=== PATIENT | female | born 1940 | race Caucasian/White ===

== ENCOUNTER 2020-06-28 11:24 | Outpatient (REF) | payer MEDICARE, SELFPAY ==
--- NOTE | 2020-06-28 11:29 | CT_ITS ---
EXAMINATION: CT CHEST WITHOUT CONTRAST CLINICAL INFORMATION: Pulmonary nodule COMPARISON: 06/11/2019 TECHNIQUE: Multidetector volumetric CT imaging of the chest was done. Axial MIP volume rendering provided. Sagittal and coronal reformatted images were obtained. This CT examination was performed using dose optimization techniques as appropriate, variously including the following: *Automated exposure control *Adjustment of mA and/or kV according to patient size (this includes techniques or standardized protocols for targeted exams where dose is matched to indication/reason for exam; i.e. extremities or head) *Use of iterative reconstruction technique DLP: 192 mGy-cm FINDINGS: LUNGS: There are moderate changes of centrilobular emphysema present bilaterally. There is some bronchial wall thickening with mild cylindrical bronchiectasis within both lower lobes. There are numerous sub-4 mm densities present. There are scattered regions of disease with the appearance of tree-in-bud configuration from endobronchial disease/mucous plugging within the right upper lobe, right middle lobe, lingula, and bilateral lower lobes. There are scattered calcified granulomas present. There is a 4 mm noncalcified nodule seen within the right middle lobe on image 284 of 541. There is a subpleural noncalcified density seen within the left lower lobe on image 396 of 541 which may represent pleural scarring. There is a 5 mm noncalcified subpleural nodule within the left lower lobe on image 358 of 541. MEDIASTINUM: Visualized thyroid gland appears unremarkable. Heart normal size. Coronary artery and aortic valve calcifications present. No thoracic aortic aneurysm. There is prominence of the pulmonary artery consistent with some degree of pulmonary hypertension. There is moderate thoracic calcified plaque present most prominent at the origin of the left subclavian artery. No mediastinal or hilar lymphadenopathy appreciated. No pericardial effusion. PLEURA: There is no pleural effusion. No pleural mass or thickening. AXILLA: No lymphadenopathy. UPPER ABDOMEN: Small hiatal hernia. OSSEOUS STRUCTURES: No suspicious destructive bony lesions. CT/CT chest wo con IMPRESSION: Essentially stable appearance of the chest compared to previous study of 06/11/2019. Old granulomatous disease. Centrilobular emphysema. Bibasilar bronchiectasis. Pleural and parenchymal densities as described above which have not changed.
== END 2020-06-28 11:25 | disposition home or self-care (01) ==
LOC: HO.CT 11:24
PROVIDERS: PCP Internal Medicine; Visit Provider Hospitalist
DX: R91.1 Solitary pulmonary nodule (principal)
CPT/HCPCS: 71250

== ENCOUNTER → 2020-07-03 10:42 | Outpatient (BNVA) | payer MEDICARE, SELFPAY | PROVIDERS: PCP Internal Medicine; Visit Provider Hospitalist | DX: J44.9 Chronic obstructive pulmonary disease, unspecified (principal) | CPT/HCPCS: 99212 ==

== ENCOUNTER → 2020-12-27 10:40 | Outpatient (BNVA) | payer MEDICARE, SELFPAY | PROVIDERS: Visit Provider Hospitalist | DX: R91.8 Other nonspecific abnormal finding of lung field (principal); J41.1 Mucopurulent chronic bronchitis; J47.9 Bronchiectasis, uncomplicated | CPT/HCPCS: 99212 ==

== ENCOUNTER 2021-05-21 13:18 | Outpatient (REF) | payer MEDICARE, SELFPAY ==
--- NOTE | ~2021-05-21 | CT_ITS ---
EXAMINATION: CT CHEST WITHOUT CONTRAST CLINICAL INFORMATION: Bronchiectasis. Difficulty breathing, dyspnea on exertion and cough. COMPARISON: Previous chest CT scans most recent June 2020 TECHNIQUE: Multidetector volumetric CT imaging of the chest was done. Axial MIP volume rendering provided. Sagittal and coronal reformatted images were obtained. This CT examination was performed using dose optimization techniques as appropriate, variously including the following: *Automated exposure control *Adjustment of mA and/or kV according to patient size (this includes techniques or standardized protocols for targeted exams where dose is matched to indication/reason for exam; i.e. extremities or head) *Use of iterative reconstruction technique DLP: 161 mGy-cm FINDINGS: LUNGS: There is evidence of mild emphysema. There is bilateral lower lobe bronchiectasis. There is significant bilateral lower lobe bronchial wall thickening and bronchial soft tissue opacification or mucus plugging. As appears increased compared to most recent exam June 2020. There is evidence of mild airways disease with clustered peribronchial nodules axial wall thickening or tree-in-bud appearance in the right upper lobe that is stable. The small 3 mm right upper lobe nodule axial image 115 series 2 and is stable. The 3 mm peripheral or subpleural right middle lobe nodule axial image 163 series 10 stable. There is a new 4 mm left lower lobe nodule axial image 148 series 10. This may be related to airways disease. MEDIASTINUM: The heart does not appear enlarged. There is coronary artery calcification. The thoracic aorta and great vessels are heavily calcified but normal in caliber. There are small mediastinal lymph nodes. No enlarged lymph nodes are seen. There is a posterior mediastinal lymph node adjacent to the distal dressing esophagus that measures 8 mm is upper normal in size. This is similar to previous exams. There is no pericardial effusion. The pulmonary arteries are in size. PLEURA: There is no pleural effusion. No pleural mass or thickening. AXILLA: No lymphadenopathy. UPPER ABDOMEN: There is evidence of atherosclerotic disease. There may be there is a partially visualized low-attenuation lesion in the right kidney which when compared prior exam probably representing a cyst.. There may be diverticulosis of the colon. OSSEOUS STRUCTURES: There are degenerative changes of the spine. CT/CT chest wo con IMPRESSION: Mild bilateral lower lobe bronchiectasis. Increasing bilateral lower lobe bronchial soft tissue opacification or mucus plugging compared to June 2020 exam. Evidence of mild airways disease in the right upper lobe that is stable. New 4 mm left lower lobe nodule, question related to airways disease. Otherwise small pulmonary nodules are stable. Emphysema. Severe atherosclerotic disease. Fleischner guidelines were followed.
== END 2021-05-21 13:19 | disposition home or self-care (01) ==
LOC: HO.CT 13:18
PROVIDERS: PCP Internal Medicine; Visit Provider Hospitalist
DX: R91.8 Other nonspecific abnormal finding of lung field (principal); J47.9 Bronchiectasis, uncomplicated
CPT/HCPCS: 71250

== ENCOUNTER → 2021-05-31 09:56 | Outpatient (BNVA) | payer MEDICARE, SELFPAY | PROVIDERS: PCP Internal Medicine; Visit Provider Hospitalist | DX: J41.1 Mucopurulent chronic bronchitis (principal); R91.8 Other nonspecific abnormal finding of lung field; J47.9 Bronchiectasis, uncomplicated; A49.8 Other bacterial infections of unspecified site; Z16.24 Resistance to multiple antibiotics | CPT/HCPCS: 99212 ==

== ENCOUNTER → 2021-07-18 11:11 | Outpatient (BNVA) | payer MEDICARE, SELFPAY | PROVIDERS: PCP Internal Medicine; Visit Provider Hospitalist | DX: R91.8 Other nonspecific abnormal finding of lung field (principal); J41.1 Mucopurulent chronic bronchitis; J47.9 Bronchiectasis, uncomplicated; A49.8 Other bacterial infections of unspecified site; Z16.24 Resistance to multiple antibiotics | CPT/HCPCS: 99212 ==

== ENCOUNTER 2021-07-23 08:25 | Emergency (ER) | payer MEDICARE, SELFPAY ==
--- NOTE | ~2021-07-23 | CT_ITS ---
EXAMINATION: CT HEAD WITHOUT CONTRAST CLINICAL INFORMATION: Fall on helical wrist COMPARISON: None TECHNIQUE: Contiguous axial imaging was performed from the skull base to vertex without intravenous administration of contrast. This CT examination was performed using dose optimization techniques as appropriate, variously including the following: *Automated exposure control *Adjustment of mA and/or kV according to patient size (this includes techniques or standardized protocols for targeted exams where dose is matched to indication/reason for exam; i.e. extremities or head) *Use of iterative reconstruction technique DLP: 735 mGy-cm FINDINGS: There is no evidence of acute intracranial hemorrhage or territorial infarction. No abnormal mass effect or midline shift is seen. Hernandez to white matter differentiation is well preserved. No extra-axial fluid collections are identified. The ventricles are normal in size. There is no abnormal attenuation within the brain parenchyma. The osseous structures and soft tissues are normal. The mastoid air cells and visualized portions of the paranasal sinuses are well aerated. CT/CT head/brain wo con IMPRESSION: No acute intracranial process seen.
--- NOTE | 2021-07-23 08:35 | ED_ITS ---
HPI - Fall General Chief Complaint: Head Injury Stated Complaint: fall - head injury- on blood thinner Time Seen by Provider: 07/23/21 08:35 Source: patient and old records reviewed Mode of arrival: ambulatory Limitations: no limitations History of Present Illness MD complaint: fall Onset (ago): minute(s) Fall from: standing Fall witnessed: no Place fall occurred: home Loss of consciousness: none Prolonged down time: no Symptoms prior to fall: none Context: tripped/slipped (on ice) Location of injury: head Severity: moderate Quality: dull Associated symptoms (after fall): other (felt a little bit dizzy afterwards) Related Data Home Medications Medication Instructions Recorded Confirmed antiarthritic combination no.2 900 mg PO 07/03/20 07/18/21 mg tablet (glucosamine-chondroitin) apixaban 5 mg tablet (Eliquis) 5 mg PO BID 07/03/20 07/18/21 atorvastatin 10 mg tablet (Lipitor) 10 mg PO BEDTIME 07/03/20 07/18/21 budesonide 0.5 mg/2 mL suspension 0.5 mg INHALATION DAILY 07/03/20 07/18/21 for nebulization calcium carbonate 600 mg calcium 600 mg PO DAILY 07/03/20 07/18/21 (1,500 mg) tablet (Calcium) coenzyme Q10 400 mg capsule 400 mg PO DAILY 07/03/20 07/18/21 guaifenesin 600 mg tablet, 600 mg PO BID 07/03/20 07/18/21 extended release 12 hr (Mucinex) hydrochlorothiazide 25 mg tablet 25 mg PO DAILY 07/03/20 07/18/21 ipratropium 0.5 mg-albuterol 3 mg 3 ml INHALATION Q6H PRN 07/03/20 07/18/21 (2.5 mg base)/3 mL nebulization soln lorazepam 0.5 mg tablet 0.5 mg PO BEDTIME PRN 07/03/20 07/18/21 magnesium 30 mg tablet 30 mg PO DAILY 07/03/20 07/18/21 multivitamin 1 tab PO DAILY 07/03/20 07/18/21 omeprazole 20 mg capsule,delayed 20 mg PO DAILY 07/03/20 07/18/21 release potassium chloride 10 mEq 10 meq PO DAILY 07/03/20 07/18/21 capsule,extended release sotalol 80 mg tablet 80 mg PO BID 07/03/20 07/18/21 vit cap PO 07/03/20 07/18/21 C,E,zinc,Kv-rrfyh-9-lutein-zeaxanthin 250 mg-2.5 mg-0.5 mg capsule zolpidem 5 mg tablet (Ambien) 5 mg PO BEDTIME PRN 07/03/20 07/18/21 atorvastatin 20 mg tablet 20 mg PO DAILY 07/18/21 07/18/21 ondansetron 4 mg disintegrating 4 mg PO Q8H PRN 07/18/21 07/18/21 tablet potassium chloride 20 mEq 20 meq PO DAILY 07/18/21 07/18/21 tablet,extended release(part/cryst) Previous Rx's Medication Instructions Recorded albuterol sulfate 90 mcg/actuation 2 puff PO Q6H PRN #34 g 04/13/21 aerosol inhaler fluticasone 500 mcg-salmeterol 50 1 inh INHALATION BID #180 ea 04/13/21 mcg/dose blistr powdr for inhalation (Wixela Inhub) sodium chloride 7 % for 4 ml INHALATION BID #240 ml 05/31/21 nebulization sulfamethoxazole 800 1 tab PO Q12H 28 Days #56 tab 05/31/21 mg-trimethoprim 160 mg tablet (Bactrim DS) Spiriva with HandiHaler 18 mcg and 1 cap INHALATION DAILY #90 cap NS 06/18/21 inhalation capsules (tiotropium bromide) Allergies Allergy/AdvReac Type Severity Reaction Status Date / Time No Known Allergies Allergy Verified 07/18/21 11:25 Review of Systems Review of Systems: Constitutional : No Fever, No Chills, No Fatigue ENT/Mouth : No sore throat, No Rhinorrhea Eyes: No Eye Pain, No Swelling, No Redness Cardiovascular : No Chest Pain, No SOB, No Dyspnea on Exertion Respiratory : No Cough, No Sputum Gastrointestinal : No Nausea, No Vomiting, No Diarrhea, No abdominal Pain Genitourinary : No Dysuria, No Urinary Frequency, No Hematuria, Musculoskeletal : No joint pain, No Myalgias, No Joint Swelling Skin : No Skin Lesions, No rash Neuro : No Weakness, No Numbness, pos Dizziness, no Headache Psych : No Anxiety/Panic, No Depression Heme/Lymph: No Bruising, No Bleeding,No Lymphadenopathy Endocrine : No Polyuria, No Polydipsia All other systems reviewed and are negative FOR[facility]LY [facility] Past Medical History Attestation statement: The following information was validated with the patient. 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 Oriented X3. No acute distress. Eyes: Pupils equal, round and reactive to light. ENT: Pharynx normal. Small raised area L parietal scalp Neck: Normal inspection. Neck supple. no midline ttp CVS: Normal heart rate and rhythm. Pulses normal. Respiratory: No respiratory distress. Breath sounds slightly diminished - declines neb treatment Abdomen: Soft and non-tender. Skin: Skin warm and dry. Normal skin color. Normal skin turgor. Extremities: No lower extremity edema. No calf ttp Neuro: Oriented X 3. No motor deficit. No sensory deficit. Course Course Course Narrative: GCS 15 no acute findings, stable for DC steady gait to and from the bathroom MDM - Fall MDM Narrative Medical decision making narrative: 80 yo female with hx of COPD PRN O2, bronchiectasis, afib on eliquis slipped on ice while dropping off routine sputum culture - no LOC did strike L side of head - GCS 15 but feels slightly dizzy denies any other injury at this time will observe and obtain CT head to r/o ICH. She has no neck pain full ROM and no midline ttp. Dispo per results and findings. Discharge Plan Discharge Clinical Impression: Head injury Qualifiers: Encounter type: initial encounter Qualified Code(s): S09.90XA - Unspecified injury of head, initial encounter Patient Disposition: Home, Self-Care Instructions: Head Injury (ED) Additional Instructions: return to ED for any worsening symptoms or concerns return for any severe headaches, vomiting, or any other concerns Prescriptions: No Action albuterol sulfate 90 mcg/actuation HFA aerosol inhaler 2 puff PO Q6H PRN (Reason: shortness of breath or wheezing) Qty: 34 3RF fluticasone propion-salmeterol [Wixela Inhub] 500-50 mcg/dose blister with device 1 inh inhalation BID Qty: 180 3RF Spiriva with HandiHaler 18 mcg capsule, w/inhalation device 1 cap inhalation DAILY Qty: 90 3RF hydrochlorothiazide 25 mg tablet 25 mg PO DAILY 0RF sotalol 80 mg tablet 80 mg PO BID 0RF Eliquis 5 mg tablet 5 mg PO BID 0RF omeprazole 20 mg capsule,delayed release(DR/EC) 20 mg PO DAILY 0RF potassium chloride 10 mEq capsule, extended release 10 meq PO DAILY 0RF ipratropium-albuterol 0.5 mg-3 mg(2.5 mg base)/3 mL solution for nebulization 3 ml inhalation Q6H PRN0RF budesonide 0.5 mg/2 mL suspension for nebulization 0.5 mg inhalation DAILY 0RF atorvastatin [Lipitor] 10 mg tablet 10 mg PO BEDTIME 0RF vit C,E,Zn,Tp--yzv-zeax 250-2.5-0.5 mg capsule PO 0RF calcium carbonate [Calcium 600] 600 mg calcium (1,500 mg) tablet 600 mg PO DAILY 0RF glucosamine-chondroitin 900 mg tablet PO 0RF zolpidem [Ambien] 5 mg tablet 5 mg PO BEDTIME PRN0RF lorazepam 0.5 mg tablet 0.5 mg PO BEDTIME PRN0RF coenzyme Q10 400 mg capsule 400 mg PO DAILY 0RF multivitamin Tablet 1 tab PO DAILY 0RF magnesium 30 mg tablet 30 mg PO DAILY 0RF guaifenesin [Mucinex] 600 mg tablet extended release 12hr 600 mg PO BID 0RF potassium chloride 20 mEq tablet,ER particles/crystals 20 meq PO DAILY 0RF ondansetron 4 mg tablet,disintegrating 4 mg PO Q8H PRN0RF atorvastatin 20 mg tablet 20 mg PO DAILY 0RF sodium chloride 7 % solution for nebulization 4 ml inhalation BID Qty: 240 11RF sulfamethoxazole-trimethoprim [Bactrim DS] 800-160 mg tablet 1 tab PO Q12H 28 Days Qty: 56 1RF Interventions: ED Discharge Assessment Last Done: 07/23/21 10:32 Discharge Date/Time: 07/23/21 10:32
[2021-07-23 08:44] VITALS: BP 194/85; PULSE 100; RESP 19; TEMP 36.6; O2SAT 95; BMI 26.1
[2021-07-23 10:32] VITALS: BP 126/78; PULSE 78; RESP 19; O2SAT 96
== END 2021-07-23 10:32 | disposition home or self-care (01) ==
PROVIDERS: Emergency Provider Emergency Medicine; PCP Internal Medicine
DX: S09.90XA Unspecified injury of head, initial encounter (principal); W00.0XXA Fall on same level due to ice and snow, initial encounter; J47.9 Bronchiectasis, uncomplicated; I48.91 Unspecified atrial fibrillation; J44.9 Chronic obstructive pulmonary disease, unspecified; Z99.81 Dependence on supplemental oxygen; Z79.01 Long term (current) use of anticoagulants; Y93.01 Activity, walking, marching and hiking; Y92.039 Unspecified place in apartment as the place of occurrence of the external cause; Y99.9 Unspecified external cause status
CPT/HCPCS: 70450; 87070; 87077; 87185; 87186; 87205; 99283; 99284

== ENCOUNTER → 2021-11-13 10:39 | Outpatient (BNVA) | payer MEDICARE, SELFPAY | PROVIDERS: PCP Internal Medicine; Visit Provider Hospitalist | DX: J41.1 Mucopurulent chronic bronchitis (principal); J47.9 Bronchiectasis, uncomplicated; J15.5 Pneumonia due to Escherichia coli; R91.8 Other nonspecific abnormal finding of lung field; A49.8 Other bacterial infections of unspecified site; Z16.24 Resistance to multiple antibiotics | CPT/HCPCS: 99212 ==

== ENCOUNTER → 2022-01-08 10:41 | Outpatient (BNVA) | payer MEDICARE, SELFPAY | PROVIDERS: PCP Internal Medicine; Visit Provider Hospitalist | DX: R91.8 Other nonspecific abnormal finding of lung field (principal); J41.1 Mucopurulent chronic bronchitis; J47.9 Bronchiectasis, uncomplicated; A49.8 Other bacterial infections of unspecified site; Z16.24 Resistance to multiple antibiotics; J15.5 Pneumonia due to Escherichia coli; Z79.899 Other long term (current) drug therapy | CPT/HCPCS: 99212 ==

== ENCOUNTER 2022-01-31 06:35 | Day surgery (SDC) | payer MEDICARE, SELFPAY ==
[2022-01-24 16:08] VITALS: BMI 23.2
--- NOTE | 2022-01-30 08:43 | P.CONAN_ITS ---
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 (Acute) Pulmonary nodules (Acute) COPD (chronic obstructive pulmonary disease) (Acute) COPD (chronic obstructive pulmonary disease) (Acute) Bronchiectasis (Acute) Past Medical History Medical History Afib Anxiety Bronchiectasis COPD (chronic obstructive pulmonary disease) GERD (gastroesophageal reflux disease) History of diverticulitis HTN (hypertension) Hyperlipidemia 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 On anticoagulant therapy Pneumonia Pulmonary nodules Supplemental oxygen dependent Surgical History Surgical History (Updated 01/24/22 @ 16:08 by Kizzy Ty RN) History of appendectomy History of bronchoscopy Hx of colonoscopy Social History Social History Are you a primary daycare assistant to a significant other at home: No Do you presently have visiting nurse or other home services: No Patient Tobacco Use Status: Former Tobacco user Quit Date: 1999 Tobacco use type: Cigarette Years Smoked: 35 Use of substances other than those prescribed or required for medical reasons: No Have you been hit, kicked, punched, or otherwise hurt by someone within the past year? If so, by whom?: No Are you DNR?: No Advance Directives: Yes Advance Directives Information Provided: Yes (To bring MOLST & HCP - DOS) Advance Directives on File: Yes Advance Directives Date on File: 01/31/22 Recently lost weight without trying: No Eating poorly because of decreased appetite: No Nutrition Risks: No Nutritional Risk Patient : No : No Meds Allergies Allergy/AdvReac Type Severity Reaction Status Date / Time No Known Allergies Allergy Verified 01/24/22 15:32 Home Medications Medication Instructions Recorded Confirmed Last Taken Type antiarthritic combination no.2 900 mg PO 07/03/20 07/18/21 Unknown History mg tablet (glucosamine-chondroitin) apixaban 5 mg tablet (Eliquis) 5 mg PO BID 07/03/20 01/24/22 Unknown History calcium carbonate 600 mg calcium 600 mg PO DAILY 07/03/20 01/24/22 Unknown History (1,500 mg) tablet (Calcium) coenzyme Q10 400 mg capsule 400 mg PO DAILY 07/03/20 01/24/22 Unknown History guaifenesin 600 mg tablet, 600 mg PO BID 07/03/20 01/24/22 Unknown History extended release 12 hr (Mucinex) hydrochlorothiazide 25 mg tablet 25 mg PO DAILY 07/03/20 01/24/22 Unknown History lorazepam 0.5 mg tablet 0.5 mg PO BEDTIME PRN Sleep 07/03/20 01/24/22 Unknown History magnesium 30 mg tablet 30 mg PO DAILY 07/03/20 01/24/22 Unknown History multivitamin 1 tab PO DAILY 07/03/20 01/24/22 Unknown History omeprazole 20 mg capsule,delayed 20 mg PO DAILY 07/03/20 01/24/22 01/31/22 History release sotalol 80 mg tablet 80 mg PO BID 07/03/20 01/24/22 01/31/22 History vit cap PO 07/03/20 07/18/21 Unknown History C,E,zinc,Qh-ubrhi-2-lutein-zeaxanthin 250 mg-2.5 mg-0.5 mg capsule zolpidem 5 mg tablet (Ambien) 5 mg PO BEDTIME PRN Sleep 07/03/20 01/24/22 Unknown History atorvastatin 20 mg tablet 20 mg PO DAILY 07/18/21 01/24/22 Unknown History ondansetron 4 mg disintegrating 4 mg PO Q8H PRN Nausea 07/18/21 01/24/22 Unknown History tablet potassium chloride 20 mEq 20 meq PO DAILY 07/18/21 01/24/22 Unknown History tablet,extended release(part/cryst) Exam Exam Date and Time: January 30, 2022 0843 Height,Weight and Vital Signs: Height 5 ft 6 in Weight 65.317 kg Narrative Narrative: EKG 10/2021 NSR with SA @ 77 Assessment and Plan Assessment Anesthesia Assessment: Chart Reviewed Documented by User: Marco Antonio Andrea MD 01/31/22 07:21 [facility] Past Medical History Medical History Afib Anxiety Bronchiectasis COPD (chronic obstructive pulmonary disease) GERD (gastroesophageal reflux disease) History of diverticulitis HTN (hypertension) Hyperlipidemia 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 On anticoagulant therapy Pneumonia Pulmonary nodules Supplemental oxygen dependent Family History Family history of problems with anesthesia: No Surgical History Surgical History (Updated 01/24/22 @ 16:08 by Kizzy Ty RN) History of appendectomy History of bronchoscopy Hx of colonoscopy History of Problems with Anesthesia: No Social History Social History Are you a primary daycare assistant to a significant other at home: No Do you presently have visiting nurse or other home services: No Patient Tobacco Use Status: Former Tobacco user Quit Date: 1999 Tobacco use type: Cigarette Years Smoked: 35 Use of substances other than those prescribed or required for medical reasons: No Have you been hit, kicked, punched, or otherwise hurt by someone within the past year? If so, by whom?: No Are you DNR?: No Advance Directives: Yes Advance Directives Information Provided: Yes (To bring MOLST & HCP - DOS) Advance Directives on File: Yes Advance Directives Date on File: 01/31/22 Recently lost weight without trying: No Eating poorly because of decreased appetite: No Nutrition Risks: No Nutritional Risk Patient : No : No Meds Allergies Allergy/AdvReac Type Severity Reaction Status Date / Time No Known Allergies Allergy Verified 01/24/22 15:32 Home Medications Medication Instructions Recorded Confirmed Last Taken Type antiarthritic combination no.2 900 mg PO 07/03/20 07/18/21 Unknown History mg tablet (glucosamine-chondroitin) apixaban 5 mg tablet (Eliquis) 5 mg PO BID 07/03/20 01/24/22 Unknown History calcium carbonate 600 mg calcium 600 mg PO DAILY 07/03/20 01/24/22 Unknown History (1,500 mg) tablet (Calcium) coenzyme Q10 400 mg capsule 400 mg PO DAILY 07/03/20 01/24/22 Unknown History guaifenesin 600 mg tablet, 600 mg PO BID 07/03/20 01/24/22 Unknown History extended release 12 hr (Mucinex) hydrochlorothiazide 25 mg tablet 25 mg PO DAILY 07/03/20 01/24/22 Unknown History lorazepam 0.5 mg tablet 0.5 mg PO BEDTIME PRN Sleep 07/03/20 01/24/22 Unknown History magnesium 30 mg tablet 30 mg PO DAILY 07/03/20 01/24/22 Unknown History multivitamin 1 tab PO DAILY 07/03/20 01/24/22 Unknown History omeprazole 20 mg capsule,delayed 20 mg PO DAILY 07/03/20 01/24/22 01/31/22 History release sotalol 80 mg tablet 80 mg PO BID 07/03/20 01/24/22 01/31/22 History vit cap PO 07/03/20 07/18/21 Unknown History C,E,zinc,Iw-ufbgg-9-lutein-zeaxanthin 250 mg-2.5 mg-0.5 mg capsule zolpidem 5 mg tablet (Ambien) 5 mg PO BEDTIME PRN Sleep 07/03/20 01/24/22 Unknown History atorvastatin 20 mg tablet 20 mg PO DAILY 07/18/21 01/24/22 Unknown History ondansetron 4 mg disintegrating 4 mg PO Q8H PRN Nausea 07/18/21 01/24/22 Unknown History tablet potassium chloride 20 mEq 20 meq PO DAILY 07/18/21 01/24/22 Unknown History tablet,extended release(part/cryst) Exam Airway Mallampati Class: II TM Dist: >3cm Neck ROM: Full Loose/Missing/Broken Teeth: Yes and Upper Heart: rrr Lungs: left keyon wheezes ed Assessment and Plan Final Anesthetic Review Family History of Problems with Anesthesia: No History of Problems with Anesthesia: No NPO: Yes ASA Class: III Final Preanesthetic Review: No Changes in Pt Med Stat, Meds/Allgs Chart Reviewed, Consent Obtained/Reviewed and Anes Risks/Benef Reviewed Patient Risk: Intermediate Procedure Risk: Low Anesthetic Plan Anesthetic Plan: MAC: Disposition: Standard PACU
[2022-01-31 07:04] LABS: Hematocrit 44.7 % (37.0-47.0); Hemoglobin 14.4 g/dl (12.0-16.0); Mean Corpuscular HGB Conc 32.2 g/dl (31.0-35.0); Mean Corpuscular Volume 96.1 fL (80.0-98.0); Mean Platelet Volume 9.5 fL (9.4-12.3); Platelet Count 295 X10*3/uL (160-400); Red Blood Count 4.65 X10*6/uL (4.20-5.50); Red Cell Distribution Width 14.6 % (11.0-16.0); White Blood Count 10.3 X10*3/uL (4.8-10.8)
[2022-01-31 07:08] VITALS: BP 166/69; PULSE 88; RESP 22; TEMP 36.5; O2SAT 98
[2022-01-31 07:15] LABS: Anion Gap 14 (12-20); Blood Urea Nitrogen 21 mg/dL (9-16); Calcium 9.2 mg/dL (8.4-10.2); Carbon Dioxide 28 mmol/L (22-29); Chloride 104 mmol/L (96-108); Creatinine Clr Calc Pharmacy 60.9; Estimated Glomerular Filt Rate > 60; Glucose Fasting 104 mg/dL (60-99); Potassium 3.7 mmol/L (3.3-5.1); Sodium 142 mmol/L (135-145)
[2022-01-31] MEDS: Lactated Ringers 1,000 ML 100 ML IVCONT (07:20)
--- NOTE | 2022-01-31 07:54 | MHC.SHP ---
Pre-Procedural Eval Section A Date of Service: 01/31/22 The patient is an INPATIENT: No Changes since office visit: No Cold of Flu in the past 2 weeks, No New Medical Problems, No Changes in Medication and No Patient answered all questions Section B Chief Complaint: Other nonspecific abnormal finding of lung field Allergies: Allergies Allergy/AdvReac Type Severity Reaction Status Date / Time No Known Allergies Allergy Verified 01/24/22 15:32 Plan I have reviewed the history and physical and performed a pertinent physical examination on my patient. No changes have occurred unless specified.
[2022-01-31 08:32] VITALS: BP 102/44; PULSE 66; RESP 27; TEMP 36.3; O2SAT 99
--- NOTE | 2022-01-31 08:34 | P.BOP_ITS ---
Brief Operative Note Date of Service: 01/31/22 Pre-op diagnosis: bronchiectasis, TBM Post-op diagnosis: same Procedure: Bronchoscopy with brushing and therapeutic clean out Surgeon: Dominick Brown MD Anesthesia: MAC Was an Fertilizer Processing Supervisor used for this Procedure?: No Estimated blood loss (mL): 0 Pathology: none sent Condition: stable Disposition: same day
[2022-01-31 08:47] VITALS: BP 127/52; PULSE 70; RESP 24; O2SAT 99
[2022-01-31 09:02] VITALS: BP 116/92; PULSE 67; RESP 22; O2SAT 100
[2022-01-31] MEDS: Throat Lozenge, Medicated LOZENGE 1 LOZENGE MUCOUS MEM (09:03)
[2022-01-31 09:17] VITALS: BP 159/60; PULSE 66; RESP 20; O2SAT 100
[2022-01-31 09:30] VITALS: BP 137/62; PULSE 74; RESP 20; TEMP 36.3; O2SAT 97
--- NOTE | 2022-01-31 20:39 | OP_ITS ---
SURGEON: Dominick Brown MD PREOPERATIVE DIAGNOSIS: POSTOPERATIVE DIAGNOSIS: PROCEDURE PERFORMED: ESTIMATED BLOOD LOSS: COMPLICATIONS: ANESTHESIA: MAC. ASSISTANTS: SPECIMENS: PROCEDURE: Bronchoscopy. ASA classification 4. PREOPERATIVE DIAGNOSES: Bronchiectasis and pneumonia. POSTOPERATIVE DIAGNOSES: Bronchiectasis, tracheobronchomalacia, and pneumonia. DESCRIPTION OF PROCEDURE: After the patient was sedated, the flexible digital bronchoscope was inserted over the mouth to the level of the larynx. Larynx looked normal with normal closure of the vocal cords. No laryngeal lesions noted. After instilling lidocaine, the bronchoscope navigated past the level of the vocal cords to the level of the trachea. 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 Upon exhalation or coughing, there was collapsibility of the airway laterally suggestive of tracheomalacia. The patient had bilateral purulent secretions throughout. Bronchoscope was navigated to the entire tracheobronchial tree. No endobronchial lesions noted, although friable mucosa noted. Pus throughout the airways primarily in the lower lung zones. A microscopic brush was introduced into the right airways and sent for microbiology. Next, using Mucomyst 10% 4 mL were administered into the airways and allowed further thinning of the secretions and further therapeutic suctioning was provided. Using saline, washings were provided through all the subsegments to clear out the mucus plugs and suctioned out. The drainage was significantly purulent and that was sent for microbiology. The bronchoscope was then removed. The total endoscopic time approximately 12 minutes. Patient tolerated the procedure well. Vital signs were stable throughout the procedure. INTERPRETATION: 1. Therapeutic suctioning of the airways and cleaning of the airways, [id number]. 2. Microscopic brushing to the right. 3. No endobronchial lesions noted, although patient does have evidence of bronchiectasis and purulent secretions bilaterally. Awaiting cultures. Dominick Brown MD MR/MODL / [id number]
== END 2022-01-31 10:06 | disposition home or self-care (01) ==
PROVIDERS: Nurse Practitioner; PCP Internal Medicine; Visit Provider Hospitalist
PROC: 0BJ08ZZ Inspection of Tracheobronchial Tree, Via Natural or Artificial Opening Endoscopic (ICD-10-PCS; CPT 31622; principal; 2022-01-31 08:00)
DX: R91.8 Other nonspecific abnormal finding of lung field (principal); J41.1 Mucopurulent chronic bronchitis; J47.9 Bronchiectasis, uncomplicated; A49.8 Other bacterial infections of unspecified site; J15.5 Pneumonia due to Escherichia coli; J39.8 Other specified diseases of upper respiratory tract; Z99.81 Dependence on supplemental oxygen; I48.91 Unspecified atrial fibrillation; Z79.01 Long term (current) use of anticoagulants; Z86.19 Personal history of other infectious and parasitic diseases; I10 Essential (primary) hypertension; K57.30 Diverticulosis of large intestine without perforation or abscess without bleeding; Z79.52 Long term (current) use of systemic steroids; Z79.51 Long term (current) use of inhaled steroids; Z79.899 Other long term (current) drug therapy; Z16.24 Resistance to multiple antibiotics; Z87.891 Personal history of nicotine dependence
CPT/HCPCS: 31623; 31645; 36415; 80048; 85027; 87071; 87077; 87102; 87116; 87186; 87205; 88112; 88305; J0171; J2250

== ENCOUNTER → 2022-02-13 11:05 | Outpatient (BNVA) | payer MEDICARE, SELFPAY | PROVIDERS: PCP Internal Medicine; Visit Provider Hospitalist | DX: J47.9 Bronchiectasis, uncomplicated (principal); R91.8 Other nonspecific abnormal finding of lung field; J41.1 Mucopurulent chronic bronchitis; A49.8 Other bacterial infections of unspecified site; J15.5 Pneumonia due to Escherichia coli; Z16.24 Resistance to multiple antibiotics | CPT/HCPCS: 99212 ==

== ENCOUNTER 2022-02-26 09:16 | Outpatient (REF) | payer MEDICARE, SELFPAY ==
[2022-02-26 09:41] LABS: MANUAL DIFF FLAG NO
[2022-02-26 09:53] LABS: Basophils Percent Auto 0.5 % (0-2); Eosinophils Absolute Auto 0.1 X10*3/uL (0.0-0.4); Eosinophils Percent Auto 0.8 % (0-4); Hemoglobin 14.6 g/dl (12.0-16.0); Imm Gran Abs Auto 0.04 X10*3/uL (0.00-0.03); Imm Gran Pct Auto 0.5 % (0.0-0.4); Lymphocytes Absolute Auto 2.1 X10*3/uL (1.2-4.9); Lymphocytes Percent Auto 26.3 % (20-40); Mean Corpuscular HGB Conc 33.2 g/dl (31.0-35.0); Mean Corpuscular Hemoglobin 30.5 pg (27.0-33.0); Mean Corpuscular Volume 91.9 fL (80.0-98.0); Mean Platelet Volume 8.7 fL (9.4-12.3); Monocytes Absolute Auto 0.9 X10*3/uL (0.1-1.2); Monocytes Percent Auto 11.1 % (2-11); Neutrophils Absolute Auto 4.8 x10*3/uL (2.0-8.3); Neutrophils Percent Auto 60.8 % (45-73); Platelet Count 358 X10*3/uL (160-400); Red Blood Count 4.79 X10*6/uL (4.20-5.50); Red Cell Distribution Width 14.1 % (11.0-16.0); White Blood Count 7.8 X10*3/uL (4.8-10.8)
[2022-02-26 10:22] LABS: Alanine Aminotransferase 24 U/L (0-31); Alkaline Phosphatase 82 U/L (39-117); Anion Gap 15 (12-20); Aspartate Amino Transferase 21 U/L (5-31); Bilirubin Direct < 0.2 mg/dL (0.0-0.5); Bilirubin Total 0.3 mg/dL (0.0-1.0); Blood Urea Nitrogen 13 mg/dL (9-16); Calcium 9.8 mg/dL (8.4-10.2); Carbon Dioxide 24 mmol/L (22-29); Chloride 102 mmol/L (96-108); Estimated Glomerular Filt Rate > 60; Glucose Random 109 mg/dL (60-115); Potassium 4.1 mmol/L (3.3-5.1); Sodium 137 mmol/L (135-145); Total Protein 6.9 g/dL (6.5-8.0)
[2022-02-26 11:50] LABS: Erythrocyte Sedimentation Rate 34 MM/HR (0-20)
[2022-02-28 12:42] LABS: Immunoglobulin G Subclass 1 361 mg/dL (382-929); Immunoglobulin G Subclass 2 151 mg/dL (241-700); Immunoglobulin G Subclass 3 63 mg/dL (22-178); Immunoglobulin G Subclass 4 30.8 mg/dL (4-86); Immunoglobulin G Total 606 mg/dL (600-1540)
[2022-02-28 14:46] LABS: Immunoglobulin M 710 mg/dL (50-300)
[2022-02-28 14:56] LABS: IgA 63 mg/dL (70-320); IgG 638 mg/dL (600-1540); IgM 703 mg/dL (50-300)
[2022-02-28 22:07] LABS: Immunoglobulin E 23 kU/L (<OR=114)
== END 2022-02-26 09:17 | disposition home or self-care (01) ==
LOC: HO.LAB 09:16
PROVIDERS: PCP Internal Medicine; Visit Provider Hospitalist
DX: J44.9 Chronic obstructive pulmonary disease, unspecified (principal); J15.5 Pneumonia due to Escherichia coli
CPT/HCPCS: 36415; 80048; 80076; 82784; 82785; 85025; 85652

== ENCOUNTER → 2022-04-10 11:07 | Outpatient (BNVA) | payer MEDICARE, SELFPAY | PROVIDERS: PCP Internal Medicine; Visit Provider Hospitalist | DX: J41.1 Mucopurulent chronic bronchitis (principal); J47.9 Bronchiectasis, uncomplicated; R91.8 Other nonspecific abnormal finding of lung field; J15.5 Pneumonia due to Escherichia coli; A31.0 Pulmonary mycobacterial infection | CPT/HCPCS: 99212 ==

== ENCOUNTER 2022-04-11 14:27 | Outpatient (REF) | payer MEDICARE, SELFPAY | END 2022-04-11 14:28 | disposition home or self-care (01) | LOC: HO.LNP 14:27 | PROVIDERS: Visit Provider Hospitalist | DX: J47.9 Bronchiectasis, uncomplicated (principal) | CPT/HCPCS: 87070; 87077; 87116; 87186; 87205 ==

== ENCOUNTER 2022-05-31 11:52 | Outpatient (REF) | payer MEDICARE, SELFPAY ==
--- NOTE | ~2022-05-31 | XR_ITS ---
EXAMINATION: XR CHEST CLINICAL INFORMATION: A31.0 - Pulmonary mycobacterial infection COMPARISON: Outside imaging from [facility]: CTA chest 12/22/2021, chest radiographs 12/22/2021 and 12/04/2021. TECHNIQUE: 2 views of the chest were obtained. FINDINGS: There is hyperinflation/COPD. Coarsening bronchovascular markings are again noted at the basal lower lobes, greater on left. Subpleural opacity anteromedial right upper lobe adjacent to minor fissure again seen. There is no interval lobar or segmental airspace consolidation or cavitary lesion or effusion. The costophrenic sulci are clear. The heart is normal in size. The hilar and mediastinal contours and visualized bony structures are unremarkable. XR/XR chest 2V IMPRESSION: -No acute abnormality when compared with recent outside imaging.
== END 2022-05-31 11:53 | disposition home or self-care (01) ==
LOC: HO.XRAY 11:52
PROVIDERS: PCP Internal Medicine; Visit Provider Hospitalist
DX: A31.0 Pulmonary mycobacterial infection (principal); J47.9 Bronchiectasis, uncomplicated; R91.8 Other nonspecific abnormal finding of lung field; J41.1 Mucopurulent chronic bronchitis
CPT/HCPCS: 71046; 94618; 99212

== ENCOUNTER → 2022-07-09 10:37 | Outpatient (BNVA) | payer MEDICARE, SELFPAY | PROVIDERS: PCP Internal Medicine; Visit Provider Hospitalist | DX: J47.9 Bronchiectasis, uncomplicated (principal); J41.1 Mucopurulent chronic bronchitis; A31.0 Pulmonary mycobacterial infection; R91.8 Other nonspecific abnormal finding of lung field; Z79.899 Other long term (current) drug therapy | CPT/HCPCS: 99212 ==

== ENCOUNTER 2022-07-16 10:56 | Outpatient (REF) | payer MEDICARE, SELFPAY ==
--- NOTE | 2022-07-16 15:21 | PFT_ITS ---
FLOWS: FEV1 40% of predicted at 0.85 L. FVC 56% of predicted at 1.61 L. FEV1 to FVC ratio of 0.53. No bronchodilator response. LUNG VOLUMES: Total lung capacity 74% of predicted at 3.97 L. Residual volume 88% of predicted at 2.22 L. Slow vital capacity 61% of predicted at 1.76 L. Expiratory reserve volume 41% of predicted at 0.25 L. Diffusion capacity is severely decreased, diffusion capacity has just been moderately decreased after correction for alveolar ventilation. IMPRESSION: Severe obstructive and severe restrictive ventilatory defect with no bronchodilator response. Decreased diffusion capacity suggests emphysema. MD AMY Villagran/MODL / [id number]
== END 2022-07-16 10:57 | disposition home or self-care (01) ==
LOC: HO.RESP 10:56
PROVIDERS: PCP Internal Medicine; Visit Provider Hospitalist
DX: J15.5 Pneumonia due to Escherichia coli (principal); A31.0 Pulmonary mycobacterial infection
CPT/HCPCS: 94060; 94727; 94729

== ENCOUNTER 2022-07-18 10:29 | Outpatient (REF) | payer MEDICARE, SELFPAY | END 2022-07-18 10:30 | disposition home or self-care (01) | LOC: HO.LNP 10:29 | PROVIDERS: Visit Provider Hospitalist | DX: A31.0 Pulmonary mycobacterial infection (principal) | CPT/HCPCS: 87070; 87116; 87205; 87206 ==

== ENCOUNTER 2022-09-24 08:55 | Outpatient (REF) | payer MEDICARE, SELFPAY ==
--- NOTE | ~2022-09-24 | XR_ITS ---
EXAMINATION: XR CHEST CLINICAL INFORMATION: Pulmonary mycobacterial infection, shortness of breath COMPARISON: Chest x-ray from 05/31/2022 TECHNIQUE: 2 views of the chest were obtained. FINDINGS: Chronic hyperinflation with emphysematous and fibrotic lung disease again seen. No developing focal infiltrates or pleural effusions. Heart is normal in size. Atherosclerotic calcification seen in the thoracic aorta. XR/XR chest 2V IMPRESSION: No acute process. Stable chronic changes
[2022-09-24 09:33] LABS: MANUAL DIFF FLAG NO
[2022-09-24 10:43] LABS: Basophils Percent Auto 0.5 % (0-2); Eosinophils Absolute Auto 0.1 X10*3/uL (0.0-0.4); Eosinophils Percent Auto 1.2 % (0-4); Hematocrit 45.6 % (37.0-47.0); Hemoglobin 15.7 g/dl (12.0-16.0); Imm Gran Abs Auto 0.07 X10*3/uL (0.00-0.03); Imm Gran Pct Auto 0.8 % (0.0-0.4); Lymphocytes Percent Auto 23.6 % (20-40); Mean Corpuscular HGB Conc 34.4 g/dl (31.0-35.0); Mean Corpuscular Hemoglobin 32.2 pg (27.0-33.0); Mean Corpuscular Volume 93.6 fL (80.0-98.0); Mean Platelet Volume 8.9 fL (9.4-12.3); Monocytes Absolute Auto 1.2 X10*3/uL (0.1-1.2); Monocytes Percent Auto 14.9 % (2-11); Neutrophils Absolute Auto 4.9 x10*3/uL (2.0-8.3); Platelet Count 329 X10*3/uL (160-400); Red Blood Count 4.87 X10*6/uL (4.20-5.50); Red Cell Distribution Width 13.5 % (11.0-16.0); White Blood Count 8.3 X10*3/uL (4.8-10.8)
[2022-09-24 11:22] LABS: Alanine Aminotransferase 23 U/L (0-31); Albumin Level 3.7 g/dL (3.5-5.0); Alkaline Phosphatase 64 U/L (39-117); Anion Gap 13 (12-20); Aspartate Amino Transferase 22 U/L (5-31); Bilirubin Direct 0.2 mg/dL (0.0-0.5); Bilirubin Total 0.7 mg/dL (0.0-1.0); Blood Urea Nitrogen 15 mg/dL (9-16); Calcium 10.1 mg/dL (8.4-10.2); Carbon Dioxide 31 mmol/L (22-29); Chloride 95 mmol/L (96-108); Estimated Glomerular Filt Rate > 60; Glucose Random 93 mg/dL (60-115); Potassium 4.1 mmol/L (3.3-5.1); Sodium 135 mmol/L (135-145); Total Protein 6.5 g/dL (6.5-8.0)
[2022-09-24 11:28] LABS: Erythrocyte Sedimentation Rate 44 MM/HR (0-20)
[2022-09-26 16:24] LABS: IgA 76 mg/dL (70-320); IgG 936 mg/dL (600-1540); IgM 664 mg/dL (50-300)
== END 2022-09-24 08:56 | disposition home or self-care (01) ==
LOC: HO.LAB 08:55
PROVIDERS: PCP Internal Medicine; Visit Provider Hospitalist
DX: Z13.89 Encounter for screening for other disorder (principal)
CPT/HCPCS: 36415; 71046; 80048; 80076; 82784; 85025; 85652

== ENCOUNTER 2022-09-27 09:44 | Inpatient (IN) | payer MEDICARE, SELFPAY ==
[2022-09-27] VITALS (7 sets, daily range): BP systolic 143–184; BP diastolic 63–87; PULSE 83–94; RESP 18–22; TEMP 36.5–36.9; O2SAT 91–97; BMI 23.1
--- NOTE | ~2022-09-27 | XR_ITS ---
EXAMINATION: XR CHEST CLINICAL INFORMATION: Cough COMPARISON: Previous chest x-ray most recent 09/24/2022 TECHNIQUE: Frontal view of the chest was obtained. FINDINGS: The cardiac and mediastinal contours are stable. There are increased lung markings suggestive of bronchial wall thickening, particularly at the left lung base. There is question of a small nodule overlying the left posterior eighth rib. There is evidence of emphysema. No pleural effusion. There are degenerative changes of the spine. XR/XR chest 1V IMPRESSION: Increased lung markings suggestive of bronchial wall thickening, particularly at the left lung base. Question small left pulmonary nodule. Emphysema.
--- NOTE | 2022-09-27 10:35 | ECG_ITS ---
Test Reason : SOB Blood Pressure : / mmHG Vent. Rate : 086 BPM Atrial Rate : 086 BPM P-R Int : 214 ms QRS Dur : 088 ms QT Int : 376 ms P-R-T Axes : 076 057 039 degrees QTc Int : 449 ms Sinus rhythm with 1st degree A-V block Anterior infarct , age undetermined Abnormal ECG No previous ECGs available Referred By: Richard Farr Electronically Signed By:JORDAN ARITA MD
--- NOTE | 2022-09-27 10:37 | ED_ITS ---
HPI - SOB/Dyspnea General Chief Complaint: Dyspnea Stated Complaint: SOB Low O2 Stat Upon Movement Time Seen by Provider: 09/27/22 10:31 Source: patient Limitations: no limitations History of Present Illness HPI Narrative: This is 81 years old female with history of chronic lung disease bronchiectasis on oxygen 2 L presented to emergency room complaining of shortness of breath MD elicited complaint: shortness of breath Pertinent past history: COPD Onset (ago): day(s) (2) Context: occurred during exertion Timing: constant Severity: moderate Exacerbating factors: nothing Known history of: COPD Related Data Home Medications Medication Instructions Recorded Confirmed antiarthritic combination no.2 900 1,200 mg PO BID 07/03/20 09/27/22 mg tablet (glucosamine-chondroitin) apixaban 5 mg tablet (Eliquis) 5 mg PO BID 07/03/20 09/27/22 calcium carbonate 600 mg calcium 600 mg PO DAILY 07/03/20 09/27/22 (1,500 mg) tablet (Calcium) coenzyme Q10 400 mg capsule 400 mg PO DAILY 07/03/20 09/27/22 guaifenesin 600 mg tablet, 600 mg PO BID 07/03/20 09/27/22 extended release 12 hr (Mucinex) hydrochlorothiazide 25 mg tablet 25 mg PO DAILY 07/03/20 09/27/22 lorazepam 0.5 mg tablet 0.5 mg PO BEDTIME PRN Sleep 07/03/20 09/27/22 omeprazole 20 mg capsule,delayed 20 mg PO BID 07/03/20 09/27/22 release sotalol 80 mg tablet 80 mg PO BID 07/03/20 09/27/22 vit 1 cap PO BID 07/03/20 09/27/22 C,E,zinc,Ax-cpswn-6-lutein-zeaxanthin 250 mg-2.5 mg-0.5 mg capsule zolpidem 5 mg tablet (Ambien) 5 mg PO BEDTIME PRN Sleep 07/03/20 09/27/22 atorvastatin 20 mg tablet 20 mg PO BEDTIME 07/18/21 09/27/22 potassium chloride 20 mEq 20 meq PO BEDTIME 07/18/21 09/27/22 tablet,extended release(part/cryst) Oxygen Home Use 07/09/22 alendronate 70 mg tablet 70 mg PO CLEMENTS 07/09/22 09/27/22 nebulizers 07/09/22 Lactobacillus rhamnosus GG 10 1 cap PO DAILY 09/27/22 09/27/22 billion cell capsule (Culturelle) amikacin liposomal 590 mg/8.4 mL 590 mg inhalation [facility] 09/27/22 09/27/22 susp for inhalation, nebulizer acces. ethambutol 400 mg tablet 800 mg PO [facility] 09/27/22 09/27/22 fluticasone fur. 200 mcg-umeclid 1 ea inhalation DAILY 09/27/22 09/27/22 62.5 mcg-vilant 25 mcg inhalat.powder (Trelegy Ellipta) ipratropium 0.5 mg-albuterol 3 mg 3 ml inhalation TID 09/27/22 09/27/22 (2.5 mg base)/3 mL nebulization soln magnesium oxide 400 mg PO DAILY 09/27/22 09/27/22 potassium chloride 20 mEq 10 meq PO DAILY 09/27/22 09/27/22 tablet,extended release(part/cryst) rifampin 300 mg capsule 300 mg PO [facility] 09/27/22 09/27/22 Previous Rx's Medication Instructions Recorded budesonide 0.5 mg/2 mL suspension 0.5 mg (2 mL) inhalation BID #60 mL 03/04/22 for nebulization sodium chloride 7 % for 4 ml inhalation BID #240 mL 05/27/22 nebulization albuterol sulfate 90 mcg/actuation 2 puff PO Q6H PRN for wheezing #34 08/21/22 aerosol inhaler grams Allergies Allergy/AdvReac Type Severity Reaction Status Date / Time No Known Allergies Allergy Verified 07/09/22 10:54 Review of Systems Constitutional: Constitutional: Reports no additional constitutional complaints ENT: Reports system reviewed and no additional complaints, except as documented Cardiovascular: Cardiovascular: Reports no additional cardiovascular complaints and Reports dyspnea Respiratory: Respiratory: Reports dyspnea PMFSH Past Medical History Medical History Afib Anxiety Bronchiectasis COPD (chronic obstructive pulmonary disease) GERD (gastroesophageal reflux disease) History of diverticulitis HTN (hypertension) Hyperlipidemia 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 anticoagulant therapy Pneumonia Pulmonary nodules Supplemental oxygen dependent Surgical History History of appendectomy History of bronchoscopy Hx of colonoscopy Social History Social History Are you a primary care specialist to a significant other at home: No Do you presently have visiting nurse or other home services: No Alcohol intake: current Alcohol intake frequency: holidays/special occasions only Patient Tobacco Use Status: Former Tobacco user Quit Date: 1999 Tobacco use type: Cigarette Years Smoked: 35 Smoked in Last 30 Days: No Use of substances other than those prescribed or required for medical reasons: No Advance Directives: Yes Advance Directives on File: Yes Advance Directives Date on File: 01/31/22 Physical Exam Vital Signs: Vital Signs: Last Vital Signs Temp 98.1 F 09/27/22 14:46 Pulse 94 09/27/22 14:46 Resp 22 H 09/27/22 14:46 BP 170/75 H 09/27/22 14:46 Pulse Ox 93 09/27/22 14:46 O2 Del Method Nasal Cannula 09/27/22 14:46 O2 Flow Rate 2 09/27/22 14:46 BMI result Body Mass Index 23.1 Const: General: cooperative Nutritional Appearance: well nourished Orientation/consciousness: patient oriented x3 Limitations: no limitations HEENT: Head: Yes normal to inspection General nose exam: Normal external nose present Face and sinus: Yes normal facial exam Mouth: Normal oral and palatal mucosa present Throat: Yes posterior oropharynx normal Neck: Neck: Yes normal visual inspection Chest: Chest palpation & inspection: normal inspection of the chest Resp: Effort & Inspection: normal respiratory effort Auscultation: rhonchi Cardio: Jugular venous distension: no JVD Rate: regular rate Rhythm: regular rhythm GI: Inspection: Yes normal to inspection Palpation (GI): Soft to palpation Percussion: Yes normal to percussion Auscultation: normal bowel sounds Skin: General skin exam: no rashes or lesions noted and elasticity normal Lesions: no lesions Rashes: no rashes Neuro: General: patient oriented x3 Extrem: General: Yes normal to inspection Medications Administered Discontinued Medications Generic Name Dose Route Start Last Admin Trade Name Freq PRN Reason Stop Dose Admin Albuterol/Ipratropium 3 ml 09/27/22 10:42 09/27/22 10:53 Albuterol/Iprat 2.5/0.5mg 3 Ml Ampul.Neb INHALE 09/27/22 10:43 3 ml ONCE ONE Administration Albuterol/Ipratropium 3 ml 09/27/22 13:22 09/27/22 13:46 Albuterol/Iprat 2.5/0.5mg 3 Ml Ampul.Neb INHALE 09/27/22 13:23 3 ml ONCE ONE Administration Sodium Chloride 1,000 mls @ 999 mls/hr 09/27/22 10:45 09/27/22 12:31 Ns IVCONT 09/27/22 11:45 Infused .Q1H1M APPLE Infusion Doxycycline Hyclate 100 mg/ 250 mls @ 166.67 mls/hr 09/27/22 13:21 09/27/22 15:52 Sodium Chloride IV 09/27/22 14:50 Infused ONCE ONE Infusion Methylprednisolone Sodium Succinate 125 mg 09/27/22 10:41 09/27/22 10:57 Methylprednisolone Sod Succ 125 Mg/2 Ml Vial IVPUSH 09/27/22 10:42 125 mg ONCE ONE Administration Medical Decision Making Medical Decision Making [facility] Narrative: Patient presented with shortness of breath she is tachypneic breathing at 22 minutes, she desat on ambulation without to 82%, I think is very reasonable to admit for [facility], she has bronchiectasis with start her also on doxycycline Differential Diagnosis Differential Diagnoses: The differential diagnosis associated with the presentat ion includes Pneumonia/CHF Admission/Observation Consideration of admission/observation: Escalation of care including admission /observation considered Consult Healthcare Provider Management of the patient was discussed with: Hospitalist Lab Data [facility] Lab Attestation statement: I reviewed the patient's lab results. 09/27/22 10:49 09/27/22 10:49 Labs: Lab Results 09/27/22 09/27/22 09/27/22 Range/Units 10:49 10:49 10:49 WBC 9.4 (4.8-10.8) X10*3/uL RBC 4.99 (4.20-5.50) X10*6/uL Hgb 16.0 (12.0-16.0) g/dl Hct 46.2 (37.0-47.0) % MCV 92.6 (80.0-98.0) fL MCH 32.1 (27.0-33.0) pg MCHC 34.6 (31.0-35.0) g/dl RDW 13.3 (11.0-16.0) % Plt Count 328 (160-400) X10*3/uL MPV 8.8 L (9.4-12.3) fL Immature Gran % (Auto) 0.4 (0.0-0.4) % Neut % (Auto) 67.0 (45-73) % Lymph % (Auto) 19.4 L (20-40) % Frio % (Auto) 11.1 H (2-11) % Eos % (Auto) 1.6 (0-4) % Baso % (Auto) 0.5 (0-2) % Lymph # (Auto) 1.8 (1.2-4.9) X10*3/uL Frio # (Auto) 1.1 (0.1-1.2) X10*3/uL Eos # (Auto) 0.2 (0.0-0.4) X10*3/uL Baso # (Auto) 0.1 (0.0-0.2) X10*3/uL Abs Immat Gran (auto) 0.04 H (0.00-0.03) X10*3/uL Absolute Neuts (auto) 6.3 (2.0-8.3) x10*3/uL Absolute Nucleated RBC 0.000 (0.0-0.012) X10*3/uL Nucleated RBC % (auto) 0.0 (0.0-0.2) /100WBC PT (10.0-13.1) SEC INR (0.9-1.1) Sodium 135 (135-145) mmol/L Potassium 4.0 (3.3-5.1) mmol/L Chloride 97 (96-108) mmol/L Carbon Dioxide 29 (22-29) mmol/L Anion Gap 13 (12-20) BUN 15 (9-16) mg/dL Creatinine 0.68 (0.5-1.4) mg/dL Estim Creat Clear Calc 61.7 Estimated GFR > 60 Random Glucose 102 (60-115) mg/dL Calcium 10.3 H (8.4-10.2) mg/dL Total Bilirubin 0.4 (0.0-1.0) mg/dL AST 20 (5-31) U/L ALT 21 (0-31) U/L Alkaline Phosphatase 64 (39-117) U/L Troponin I High Sens < 2.7 (<3.5-17.0) ng/L B-Natriuretic Peptide (<100) pg/mL Total Protein 6.9 (6.5-8.0) g/dL Albumin 3.9 (3.5-5.0) g/dL Urine Color Urine Appearance Urine pH (5.0-9.0) Ur Specific [place] (1.005-1.025) Urine Protein (Neg-Trace) mg/dL Urine Glucose (UA) (Negative) mg/dL Urine Ketones (Negative) mg/dL Urine Blood (Negative) Urine Nitrite (Negative) Ur Leukocyte Esterase (Negative) Urine RBC (0-2) /HPF Urine WBC (0-5) /HPF Ur Squamous Epith Cells (0-2) /HPF Urine Bacteria (None Seen) Hyaline Casts (0-2) /LPF 09/27/22 09/27/22 09/27/22 Range/Units 10:49 10:49 11:51 WBC (4.8-10.8) X10*3/uL RBC (4.20-5.50) X10*6/uL Hgb (12.0-16.0) g/dl Hct (37.0-47.0) % MCV (80.0-98.0) fL MCH (27.0-33.0) pg MCHC (31.0-35.0) g/dl RDW (11.0-16.0) % Plt Count (160-400) X10*3/uL MPV (9.4-12.3) fL Immature Gran % (Auto) (0.0-0.4) % Neut % (Auto) (45-73) % Lymph % (Auto) (20-40) % Frio % (Auto) (2-11) % Eos % (Auto) (0-4) % Baso % (Auto) (0-2) % Lymph # (Auto) (1.2-4.9) X10*3/uL Frio # (Auto) (0.1-1.2) X10*3/uL Eos # (Auto) (0.0-0.4) X10*3/uL Baso # (Auto) (0.0-0.2) X10*3/uL Abs Immat Gran (auto) (0.00-0.03) X10*3/uL Absolute Neuts (auto) (2.0-8.3) x10*3/uL Absolute Nucleated RBC (0.0-0.012) X10*3/uL Nucleated RBC % (auto) (0.0-0.2) /100WBC PT 14.2 H (10.0-13.1) SEC INR 1.2 H (0.9-1.1) Sodium (135-145) mmol/L Potassium (3.3-5.1) mmol/L Chloride (96-108) mmol/L Carbon Dioxide (22-29) mmol/L Anion Gap (12-20) BUN (9-16) mg/dL Creatinine (0.5-1.4) mg/dL Estim Creat Clear Calc Estimated GFR Random Glucose (60-115) mg/dL Calcium (8.4-10.2) mg/dL Total Bilirubin (0.0-1.0) mg/dL AST (5-31) U/L ALT (0-31) U/L Alkaline Phosphatase (39-117) U/L Troponin I High Sens (<3.5-17.0) ng/L B-Natriuretic Peptide 48 (<100) pg/mL Total Protein (6.5-8.0) g/dL Albumin (3.5-5.0) g/dL Urine Color Yellow Urine Appearance Clear Urine pH 6.0 (5.0-9.0) Ur Specific [place] 1.010 (1.005-1.025) Urine Protein Negative (Neg-Trace) mg/dL Urine Glucose (UA) Negative (Negative) mg/dL Urine Ketones Negative (Negative) mg/dL Urine Blood Negative (Negative) Urine Nitrite Negative (Negative) Ur Leukocyte Esterase Negative (Negative) Urine RBC 0-2 (0-2) /HPF Urine WBC 0-5 (0-5) /HPF Ur Squamous Epith Cells 0-2 (0-2) /HPF Urine Bacteria None Seen (None Seen) Hyaline Casts 0-2 (0-2) /LPF Independent Interpretation I performed an independent interpretation of an: Plain X-Ray Interpretation: No pneumonia Radiology Impression Discussion of test interpretation with radiology: I have reviewed the radiologist's reading. Radiologist Impression: FINDINGS: The cardiac and mediastinal contours are stable. There are increased lung markings suggestive of bronchial wall thickening, particularly at the left lung base. There is question of a small nodule overlying the left posterior eighth rib. There is evidence of emphysema. No pleural effusion. There are degenerative changes of the spine. XR/XR chest 1V IMPRESSION: Increased lung markings suggestive of bronchial wall thickening, particularly at the left lung base. Question small left pulmonary nodule. Emphysema. ? Dictated By: Carmina Hernandez MD Signed By: <Electronically signed by Carmina Hernandez MD in OV> 09/27/22 1215 Chronic Conditions bronchiectasiss/copd Discharge Plan Discharge Clinical Impression: Bronchiectasis, COPD (chronic obstructive pulmonary disease) Patient Disposition: Admitted As Inpatient
[2022-09-27] MEDS: 0.9 % Sodium Chloride 1,000 ML 999 ML IVCONT (10:53)
[2022-09-27] MEDS: Albuterol/Iprat 2.5/0.5MG 3 ML AMPUL.NEB INHALE ×2 (10:53→13:46)
--- NOTE | 2022-09-27 10:54 | PC.NURSE ---
pt AOX3, reporting with increased SOB on exertion. Pt hypertensive - MD aware. IV inserted and labs drawn, fluids running. Resp in with updraft. Lung sounds clear. Will cont to monitor
[2022-09-27] MEDS: methylPREDNISolone Sod Succ 125 MG/2 ML VIAL IVPUSH (10:57)
[2022-09-27 11:01] LABS: MANUAL DIFF FLAG NO
[2022-09-27 11:02] LABS: Basophils Absolute Auto 0.1 X10*3/uL (0.0-0.2); Basophils Percent Auto 0.5 % (0-2); Eosinophils Absolute Auto 0.2 X10*3/uL (0.0-0.4); Eosinophils Percent Auto 1.6 % (0-4); Hematocrit 46.2 % (37.0-47.0); Imm Gran Abs Auto 0.04 X10*3/uL (0.00-0.03); Imm Gran Pct Auto 0.4 % (0.0-0.4); Lymphocytes Absolute Auto 1.8 X10*3/uL (1.2-4.9); Lymphocytes Percent Auto 19.4 % (20-40); Mean Corpuscular HGB Conc 34.6 g/dl (31.0-35.0); Mean Corpuscular Hemoglobin 32.1 pg (27.0-33.0); Mean Corpuscular Volume 92.6 fL (80.0-98.0); Mean Platelet Volume 8.8 fL (9.4-12.3); Monocytes Absolute Auto 1.1 X10*3/uL (0.1-1.2); Monocytes Percent Auto 11.1 % (2-11); Neutrophils Absolute Auto 6.3 x10*3/uL (2.0-8.3); Platelet Count 328 X10*3/uL (160-400); Red Blood Count 4.99 X10*6/uL (4.20-5.50); Red Cell Distribution Width 13.3 % (11.0-16.0); White Blood Count 9.4 X10*3/uL (4.8-10.8)
[2022-09-27 11:08] LABS: INTERNATIONAL NORM RATIO 1.2 (0.9-1.1); Prothrombin Time 14.2 SEC (10.0-13.1)
[2022-09-27 11:26] LABS: Alanine Aminotransferase 21 U/L (0-31); Albumin Level 3.9 g/dL (3.5-5.0); Alkaline Phosphatase 64 U/L (39-117); Anion Gap 13 (12-20); Aspartate Amino Transferase 20 U/L (5-31); Bilirubin Total 0.4 mg/dL (0.0-1.0); Blood Urea Nitrogen 15 mg/dL (9-16); Calcium 10.3 mg/dL (8.4-10.2); Carbon Dioxide 29 mmol/L (22-29); Chloride 97 mmol/L (96-108); Creatinine Clr Calc Pharmacy 61.7; Estimated Glomerular Filt Rate > 60; Glucose Random 102 mg/dL (60-115); Sodium 135 mmol/L (135-145); Total Protein 6.9 g/dL (6.5-8.0)
[2022-09-27 11:29] LABS: B Type Natriuretic Peptide 48 pg/mL (<100)
[2022-09-27 11:34] LABS: Troponin-I High Sensitivity < 2.7 ng/L (<3.5-17.0)
[2022-09-27 12:03] LABS: Appearance Urine Clear; Color Urine Yellow; Glucose Urine UA Negative (Negative); Leukocyte Esterase Urine Negative (Negative); Nitrite Urine Negative (Negative); Urine Blood Negative (Negative); Urine Ketones Negative (Negative); Urine Protein Negative (Neg-Trace)
[2022-09-27 12:12] LABS: Bacteria Urine None Seen (None Seen); Hyaline Casts Urine 0-2 /LPF (0-2); RBC Urine 0-2 /HPF (0-2); Squamous Epithelial Cell Urine 0-2 /HPF (0-2); WBC Urine 0-5 /HPF (0-5)
[2022-09-27] MEDS: Doxycycline Hyclate 100 MG in 0.9 % Sodium Chloride 250 ML 166.67 MG IV (14:15)
--- NOTE | 2022-09-27 14:47 | PC.NURSE ---
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
--- NOTE | 2022-09-27 14:54 | PHA.MEDREC ---
Pharmacy Consult ? Medication Reconciliation Pharmacy has completed the medication reconciliation. Patient has a list, which we went over that was a bit outdated. list entered is most accurate. patient is now on amikacin t[place]. Spoke to patient who will ask daughter to see if med can be brought in (amikacin and ethambutol) trey
--- NOTE | 2022-09-27 15:07 | P.HPHOSP_ITS ---
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 Her usual inhalers don't seem to be helping any longer, no change in her cough. no fever. WBC is normal. CXR show Increased lung markings suggestive of bronchial wall thickening, particularly at the left lung base. Question small left pulmonary nodule. Emphysema. Her adjuster piano action advised her to come to ED. 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 anticoagulant therapy Pneumonia Pulmonary nodules Supplemental oxygen dependent Surgical History History of appendectomy History of bronchoscopy Hx of colonoscopy Social History Household Members: None Housing: Condominium Are you a primary insurance healthcare consultant to a significant other at home: No Do you presently have visiting nurse or other home services: No Alcohol intake: current Alcohol intake frequency: holidays/special occasions only Patient Tobacco Use Status: Former Tobacco user Quit Date: 1998 Tobacco use type: Cigarette Years Smoked: 35 Smoked in Last 30 Days: No Use of substances other than those prescribed or required for medical reasons: No Currently Displaying Signs/Symptoms of Drug Intoxication Withdrawal: No Have you been hit, kicked, punched, or otherwise hurt by someone within the past year? If so, by whom?: No Do you feel safe in your current relationship?: Yes Is there a partner from a previous relationship who is making you feel unsafe now?: No Sabianism Healthcare Practices: mandaeism Advance Directives: Yes Advance Directives on File: Yes Advance Directives Date on File: 01/31/22 Do you have thoughts of harming others: None Do you have a plan to hurt others: No Plan Recently lost weight without trying: No Nutrition Risks: No Nutritional Risk Patient : No : No Poor oral hygiene: No Meds Allergies Allergy/AdvReac Type Severity Reaction Status Date / Time No Known Allergies Allergy Verified 07/09/22 10:54 Home Medications Medication Instructions Recorded Confirmed Last Taken Type antiarthritic combination no.2 900 1,200 mg PO BID 07/03/20 09/27/22 09/26/22 History mg tablet (glucosamine-chondroitin) apixaban 5 mg tablet (Eliquis) 5 mg PO BID 07/03/20 09/27/22 09/26/22 History calcium carbonate 600 mg calcium 600 mg PO DAILY 07/03/20 09/27/22 09/26/22 History (1,500 mg) tablet (Calcium) coenzyme Q10 400 mg capsule 400 mg PO DAILY 07/03/20 09/27/22 09/26/22 History guaifenesin 600 mg tablet, 600 mg PO BID 07/03/20 09/27/22 09/26/22 History extended release 12 hr (Mucinex) hydrochlorothiazide 25 mg tablet 25 mg PO DAILY 07/03/20 09/27/22 09/26/22 History lorazepam 0.5 mg tablet 0.5 mg PO BEDTIME PRN Sleep 07/03/20 09/27/22 Unknown History omeprazole 20 mg capsule,delayed 20 mg PO BID 07/03/20 09/27/22 09/26/22 History release sotalol 80 mg tablet 80 mg PO BID 07/03/20 09/27/22 09/26/22 History vit 1 cap PO BID 07/03/20 09/27/22 09/26/22 History C,E,zinc,Ww-kawdo-5-lutein-zeaxanthin 250 mg-2.5 mg-0.5 mg capsule zolpidem 5 mg tablet (Ambien) 5 mg PO BEDTIME PRN Sleep 07/03/20 09/27/22 09/26/22 History atorvastatin 20 mg tablet 20 mg PO BEDTIME 07/18/21 09/27/22 09/26/22 History potassium chloride 20 mEq 20 meq PO BEDTIME 07/18/21 09/27/22 09/26/22 History tablet,extended release(part/cryst) Oxygen Home Use 07/09/22 Unknown History alendronate 70 mg tablet 70 mg PO CLEMENTS 07/09/22 09/27/22 09/22/22 History nebulizers 07/09/22 Unknown History Lactobacillus rhamnosus GG 10 1 cap PO DAILY 09/27/22 09/27/22 09/27/22 History billion cell capsule (Culturelle) amikacin liposomal 590 mg/8.4 mL 590 mg inhalation TUTA 09/27/22 09/27/22 09/26/22 History susp for inhalation, nebulizer acces. ethambutol 400 mg tablet 800 mg PO [facility] 09/27/22 09/27/22 09/26/22 History fluticasone fur. 200 mcg-umeclid 1 ea inhalation DAILY 09/27/22 09/27/22 Unknown History 62.5 mcg-vilant 25 mcg inhalat.powder (Trelegy Ellipta) ipratropium 0.5 mg-albuterol 3 mg 3 ml inhalation TID 09/27/22 09/27/22 09/26/22 History (2.5 mg base)/3 mL nebulization soln magnesium oxide 400 mg PO DAILY 09/27/22 09/27/22 09/26/22 History potassium chloride 20 mEq 10 meq PO DAILY 09/27/22 09/27/22 09/26/22 History tablet,extended release(part/cryst) rifampin 300 mg capsule 300 mg PO [facility] 09/27/22 09/27/22 09/26/22 History Physical Exam Vital Signs and Narrative: Vital Signs: Last Vital Signs Temp 98.1 F 09/27/22 14:46 Pulse 94 09/27/22 14:46 Resp 22 H 09/27/22 14:46 BP 170/75 H 09/27/22 14:46 Pulse Ox 93 09/27/22 14:46 O2 Del Method Nasal Cannula 09/27/22 14:46 O2 Flow Rate 2 09/27/22 14:46 BMI result Body Mass Index 23.1 Const: Other: Constitutional: Alert, in no distress, overweight. Mental Status: Oriented to person, place and time. Eyes: Pupils are equal, round and reactive to light. Ear, Nose and Throat: Oropharynx clear, mucous membranes moist. Ears and nose without eformities. Trachea midline. Respiratory: Clear to auscultation. No wheezing, rales or rhonchi. Cardiovascular: S1 S2 regular. No murmurs, rubs or gallops. Gastrointestinal: Abdomen soft, non-tender, non-distended. Normal bowel sounds.? Neurologic: Cranial nerves II-XII grossly intact. No focal neurological deficits. Moves all extremities spontaneously.? Skin: No rashes or lesions.? Musculoskeletal: No cyanosis or clubbing. Psychiatric: Normal mood and affect? Results Labs 09/27/22 10:49 09/27/22 10:49 Labs: Laboratory Results - last 24 hr 09/27/22 09/27/22 09/27/22 10:49 10:49 10:49 MCV 92.6 MCH 32.1 MCHC 34.6 RDW 13.3 Plt Count 328 MPV 8.8 L Immature Gran % (Auto) 0.4 Neut % (Auto) 67.0 Lymph % (Auto) 19.4 L [place] % (Auto) 11.1 H Eos % (Auto) 1.6 Baso % (Auto) 0.5 Lymph # (Auto) 1.8 [place] # (Auto) 1.1 Eos # (Auto) 0.2 Baso # (Auto) 0.1 Abs Immat Gran (auto) 0.04 H Absolute Neuts (auto) 6.3 Absolute Nucleated RBC 0.000 Nucleated RBC % (auto) 0.0 PT INR Anion Gap 13 Estim Creat Clear Calc 61.7 Estimated GFR > 60 Random Glucose 102 Calcium 10.3 H Total Bilirubin 0.4 AST 20 ALT 21 Alkaline Phosphatase 64 Troponin I High Sens < 2.7 B-Natriuretic Peptide Total Protein 6.9 Albumin 3.9 Urine Color Urine Appearance Urine pH Ur Specific [place] Urine Protein Urine Glucose (UA) Urine Ketones Urine Blood Urine Nitrite Ur Leukocyte Esterase Urine RBC Urine WBC Ur Squamous Epith Cells Urine Bacteria Hyaline Casts 09/27/22 09/27/22 09/27/22 10:49 10:49 11:51 MCV MCH MCHC RDW Plt Count MPV Immature Gran % (Auto) Neut % (Auto) Lymph % (Auto) [place] % (Auto) Eos % (Auto) Baso % (Auto) Lymph # (Auto) [place] # (Auto) Eos # (Auto) Baso # (Auto) Abs Immat Gran (auto) Absolute Neuts (auto) Absolute Nucleated RBC Nucleated RBC % (auto) PT 14.2 H INR 1.2 H Anion Gap Estim Creat Clear Calc Estimated GFR Random Glucose Calcium Total Bilirubin AST ALT Alkaline Phosphatase Troponin I High Sens B-Natriuretic Peptide 48 Total Protein Albumin Urine Color Yellow Urine Appearance Clear Urine pH 6.0 Ur Specific [place] 1.010 Urine Protein Negative Urine Glucose (UA) Negative Urine Ketones Negative Urine Blood Negative Urine Nitrite Negative Ur Leukocyte Esterase Negative Urine RBC 0-2 Urine WBC 0-5 Ur Squamous Epith Cells 0-2 Urine Bacteria None Seen Hyaline Casts 0-2 Imaging Radiologist's Impressions: Impressions Chest X-Ray 09/27/22 11:20 IMPRESSION: Increased lung markings suggestive of bronchial wall thickening, particularly at the left lung base. Question small left pulmonary nodule. Emphysema. 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, she is on chronic O2 and presents with increasing shortness of breath and decrease in oxygen saturation and being admitted for acute on chronic respiratory failure due to copd exacerbation 1/Acute on chronic respiratory failure due to copd exacerbation -continue o2 and maintain sat 93 -Duoneb and corticosteroid for copd -pulmonology consult -Doxycline for bronchitis 2/CHEMO--continue home meds 3/Permanent AFIB--Sotalol for rythm control, Eliquis for OAC 4/HLD--Lipitor 5/HTN--HCTZ 6/ ostoprosis--Alendronate DVT P: eliquis Admission for at least 2 days for treatement of acue resp failure with hypoxia Time Spent With Patient Time: Total time managing care of this patient today ____ minutes. Quality Stroke Does the patient have a stroke diagnosis?: No VTE Prior VTE?: No VTE Risk Level:: Medical - moderate - high VTE Device Contraindication: Treatment Not Indicated VTE Drug Contraindication: N/A - Med Ordered
--- NOTE | 2022-09-27 17:22 | PC.NURSE ---
report given to RN on floor
[2022-09-27] MEDS: methylPREDNISolone Sod Succ 40 MG/ML VIAL IVPUSH (18:28)
--- NOTE | 2022-09-27 18:35 | HE.PHANOTE ---
Pharmacy has received and verified patient own Ethambutol and Amikacin inhalation. Both medications were labeled with hospital labels. Amikacin was labeled with For inhalation only stickers as well as a refrigerate bag. Watch Adjuster brought back to floor, Amikacin in fridge.. ethambutol in patient own bin.
[2022-09-27] MEDS: Potassium Chloride ER 20 MEQ TAB.ER.PRT PO (20:40)
[2022-09-27] MEDS: Omeprazole 20 MG CAPSULE.DR PO (20:40)
[2022-09-27] MEDS: Apixaban 5 MG TABLET PO (20:40)
[2022-09-27] MEDS: Atorvastatin Calcium 20 MG TABLET PO (20:40)
[2022-09-27] MEDS: guaiFENesin LA 600 MG TAB.ER.12H PO (20:40)
[2022-09-27] MEDS: Sotalol HCL 80 MG TABLET PO (20:41)
[2022-09-27] MEDS: Doxycycline Monohydrate 100 MG CAPSULE PO (22:13)
[2022-09-27] MEDS: LORazepam 0.5 MG TABLET PO (22:13)
[2022-09-27] MEDS: Zolpidem Tartrate 5 MG TABLET PO (22:13)
[2022-09-28] MEDS: methylPREDNISolone Sod Succ 40 MG/ML VIAL IVPUSH ×3 (00:08→11:16)
[2022-09-28] MEDS: 0.9 % Sodium Chloride Flush 3 ML SYRINGE IVFLUSH ×3 (00:09→15:56)
[2022-09-28] MEDS: Omeprazole 20 MG CAPSULE.DR PO ×2 (06:08→15:54)
[2022-09-28] MEDS: Albuterol/Iprat 2.5/0.5MG 3 ML AMPUL.NEB INHALE ×2 (07:39→14:17)
[2022-09-28 07:41] VITALS: BP 156/69; PULSE 75; RESP 18; TEMP 36.1; O2SAT 100
[2022-09-28 07:43] VITALS: PULSE 74; RESP 20; O2SAT 95
--- NOTE | 2022-09-28 07:46 | P.PNIM_ITS ---
Subjective Subjective Date of Service: 09/28/22 Interval History: Pain exacerbation of COPD, doing better today. Review of Systems Gen: no fever Resp: no sob, no cough Physical Exam Vital Signs: Vital Signs: Last Vital Signs Temp 97.8 F 09/27/22 23:44 Pulse 74 09/28/22 07:43 Resp 20 09/28/22 07:43 BP 151/63 H 09/27/22 23:44 Pulse Ox 97 09/27/22 23:44 O2 Del Method Nasal Cannula 09/27/22 23:44 O2 Flow Rate 2 09/27/22 23:44 BMI result Body Mass Index 23.1 Const: Other: Constitutional: Alert, in no distress, overweight. Respiratory: Clear to auscultation. No wheezing, rales or rhonchi. Cardiovascular: S1 S2 regular. No murmurs, rubs or gallops. Gastrointestinal: Abdomen soft, non-tender, non-distended. Normal bowel sounds.? Neurologic: Cranial nerves II-XII grossly intact. No focal neurological deficits. Moves all extremities spontaneously.? Skin: No rashes or lesions.? Musculoskeletal: No cyanosis or clubbing. Psychiatric: Normal mood and affect? Objective Data Active Medications Albuterol/Ipratropium (Albuterol/Iprat 2.5/0.5mg 3 Ml Ampul.Neb) 3 ml INHALE RTID [facility] Last Admin: 09/28/22 07:39 Dose: 3 ml Documented By: TANG Apixaban (Apixaban 5 Mg Tablet) 5 mg PO BID [facility] Last Admin: 09/27/22 20:40 Dose: 5 mg Documented By: PAM Atorvastatin Calcium (Atorvastatin Calcium 20 Mg Tablet) 20 mg PO BEDTIME [facility] Last Admin: 09/27/22 20:40 Dose: 20 mg Documented By: PAM Calcium Carbonate (Calcium Carbonate 500 Mg Tablet) 500 mg PO DAILY [facility] Doxycycline Monohydrate (Doxycycline Monohydrate 100 Mg Capsule) 100 mg PO Q12H [facility] Last Admin: 09/27/22 22:13 Dose: 100 mg Documented By: PAM Fluticasone/Vilanterol (Fluticasone/Vilanterol 100/25 Blst.W.Dev) 1 puff INHALE DAILY [facility] Guaifenesin (Guaifenesin [place] 600 Mg Tab.Er.12h) 600 mg PO BID [facility] Last Admin: 09/27/22 20:40 Dose: 600 mg Documented By: PAM Hydrochlorothiazide (Hydrochlorothiazide 25 Mg Tablet) 25 mg PO DAILY [facility]; Protocol Lorazepam (Lorazepam 0.5 Mg Tablet) 0.5 mg PO BEDTIME PRN PRN Reason: Sleep Last Admin: 09/27/22 22:13 Dose: 0.5 mg Documented By: PAM Magnesium Oxide (Magnesium Oxide 400 Mg Tablet) 400 mg PO DAILY [facility] Methylprednisolone Sodium Succinate (Methylprednisolone Sod Succ 40 Mg/Ml Vial) 40 mg IVPUSH Q6H [facility] Last Admin: 09/28/22 06:08 Dose: 40 mg Documented By: ISAURA Pt Own(Amikacin Liposomal-Neb. Accessr 590 Mg/8.4 Ml Suspension For Nebu 590 mg [facility] Pt Own (Ethambutol (400 Mg Tablet)) 800 mg PO [facility] Omeprazole (Omeprazole 20 Mg Capsule.Dr) 20 mg PO BID@0630,1630 [facility] Last Admin: 09/28/22 06:08 Dose: 20 mg Documented By: ISAURA Potassium Chloride (Potassium Chloride Er 10 Meq Tablet.Er) 10 meq PO DAILY [facility] Potassium Chloride (Potassium Chloride Er 20 Meq Tab.Er.Prt) 20 meq PO BEDTIME [facility] Last Admin: 09/27/22 20:40 Dose: 20 meq Documented By: PAM Rifampin (Rifampin 300 Mg Capsule) 300 mg PO [facility] Sodium Chloride (0.9 % Sodium Chloride Flush 3 Ml Syringe) 3 ml IVFLUSH QSHIFT [facility] Last Admin: 09/28/22 00:09 Dose: 3 ml Documented By: ISAURA Sotalol HCl (Sotalol Hcl 80 Mg Tablet) 80 mg PO BID [facility] Last Admin: 09/27/22 20:41 Dose: 80 mg Documented By: PAM Tiotropium [place] (Tiotropium [place] 18 Mcg Cap.W.Dev) 1 puff INHALE RDAILY [facility] Zolpidem Tartrate (Zolpidem Tartrate 5 Mg Tablet) 5 mg PO BEDTIME PRN PRN Reason: Sleep Last Admin: 09/27/22 22:13 Dose: 5 mg Documented By: PAM Labs 09/27/22 10:49 09/27/22 10:49 Labs: Laboratory Results - last 24 hr 09/27/22 09/27/22 09/27/22 10:49 10:49 10:49 MCV 92.6 MCH 32.1 MCHC 34.6 RDW 13.3 Plt Count 328 MPV 8.8 L Immature Gran % (Auto) 0.4 Neut % (Auto) 67.0 Lymph % (Auto) 19.4 L [place] % (Auto) 11.1 H Eos % (Auto) 1.6 Baso % (Auto) 0.5 Lymph # (Auto) 1.8 [place] # (Auto) 1.1 Eos # (Auto) 0.2 Baso # (Auto) 0.1 Abs Immat Gran (auto) 0.04 H Absolute Neuts (auto) 6.3 Absolute Nucleated RBC 0.000 Nucleated RBC % (auto) 0.0 PT INR Anion Gap 13 Estim Creat Clear Calc 61.7 Estimated GFR > 60 Random Glucose 102 Calcium 10.3 H Total Bilirubin 0.4 AST 20 ALT 21 Alkaline Phosphatase 64 Troponin I High Sens < 2.7 B-Natriuretic Peptide Total Protein 6.9 Albumin 3.9 Urine Color Urine Appearance Urine pH Ur Specific [place] Urine Protein Urine Glucose (UA) Urine Ketones Urine Blood Urine Nitrite Ur Leukocyte Esterase Urine RBC Urine WBC Ur Squamous Epith Cells Urine Bacteria Hyaline Casts 09/27/22 09/27/22 09/27/22 10:49 10:49 11:51 MCV MCH MCHC RDW Plt Count MPV Immature Gran % (Auto) Neut % (Auto) Lymph % (Auto) [place] % (Auto) Eos % (Auto) Baso % (Auto) Lymph # (Auto) [place] # (Auto) Eos # (Auto) Baso # (Auto) Abs Immat Gran (auto) Absolute Neuts (auto) Absolute Nucleated RBC Nucleated RBC % (auto) PT 14.2 H INR 1.2 H Anion Gap Estim Creat Clear Calc Estimated GFR Random Glucose Calcium Total Bilirubin AST ALT Alkaline Phosphatase Troponin I High Sens B-Natriuretic Peptide 48 Total Protein Albumin Urine Color Yellow Urine Appearance Clear Urine pH 6.0 Ur Specific [place] 1.010 Urine Protein Negative Urine Glucose (UA) Negative Urine Ketones Negative Urine Blood Negative Urine Nitrite Negative Ur Leukocyte Esterase Negative Urine RBC 0-2 Urine WBC 0-5 Ur Squamous Epith Cells 0-2 Urine Bacteria None Seen Hyaline Casts 0-2 Assessment and Plan (1) COPD (chronic obstructive pulmonary disease): Status: Acute (2) COPD (chronic obstructive pulmonary disease): Status: Acute Plan 81-year-old with a known history of CHEMO, COPD in addition to tracheobronchomalacia and also some degree of bronchiectasis 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, 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, she is on chronic O2 and presents with increasing shortness of breath and decrease in oxygen saturation and being admitted for acute on chronic respiratory failure due to copd exacerbation 1/Acute on chronic respiratory failure due to copd exacerbation, improved -continue o2 and maintain sat 93 -Duoneb and corticosteroid for copd -pulmonology consult -Doxycline for bronchitis -may change to oral steroid today and possible DC 2/CHEMO--continue home meds 3/Permanent AFIB--Sotalol for rythm control, Eliquis for OAC 4/HLD--Lipitor 5/HTN--HCTZ 6/ ostoprosis--Alendronate DVT P: eliquis Need for inpatient: ongoing treatment for exacerbation of copd ex wth acute resp failure and on iv steroid Time Spent With Patient Time: Total time managing care of this patient today ____ minutes. Quality Stroke Does the patient have a stroke diagnosis?: No VTE Prior VTE?: No VTE Risk Level:: Medical - moderate - high VTE Device Contraindication: Treatment Not Indicated VTE Drug Contraindication: N/A - Med Ordered
--- NOTE | 2022-09-28 07:51 | PM.DS ---
DS: Providers Provider Date of Service: 09/28/22 Date of admission: 09/27/22 16:41 Primary care physician: Daniel Yoon III, MD Consults: 09/27/22 17:20 Consult to Pulmonology Routine Consulting Provider: [facility] Pul[facility] Reason for consultation: copd ex Has provider been notified: No DS: Diagnosis Discharge Diagnosis (1) COPD (chronic obstructive pulmonary disease): Status: Acute DS: Summary Hospital Course Hospital Course: Chief Complaint: Increasing shortness of breath 81-year-old with a known history of CHEMO, COPD in addition to tracheobronchomalacia and also some degree of bronchiectasis 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 upon ambulation into 70s and mid 80s. Her usual inhalers don't seem to be helping any longer, no change in her cough. no fever. WBC is normal. CXR show?Increased lung markings suggestive of bronchial wall thickening, particularly at the left lung base. Question small left pulmonary nodule. Emphysema. Her household refrigeration mechanic advised her to come to ED. Treated here with bronchodilators and steroid Hospital course: She presented with acute on chronic respiratory failure due to COPD with underlying bronchiectasis. She was treated with IV steroids and bronchodilators by nebulizers and made a rapid recover, she will be discharged home to complete a course of prednisone and a course of oral doxycycline for total of 5 days Time Spent with Patient Time attestation: Total time managing care of this patient today ____ minutes. Discharge coordination time: Greater than 30 minutes Quality: Safe Use of Opioids Does Pt have an Active Cancer Diagnosis on the Problem List?: No Quality: Stroke Does the patient have a stroke diagnosis?: No Physical Exam Vital Signs: Vital Signs: Last Vital Signs Temp 97.0 F 09/28/22 07:41 Pulse 74 09/28/22 07:43 Resp 20 09/28/22 07:43 BP 156/69 H 09/28/22 07:41 Pulse Ox 100 09/28/22 07:41 O2 Del Method Nasal Cannula 09/28/22 07:41 O2 Flow Rate 2 09/28/22 07:41 BMI result Body Mass Index 23.1 DS: Data Data Completed and Pending Labs on day of discharge: Laboratory Results - last 24 hr 09/27/22 09/27/22 09/27/22 10:49 10:49 10:49 WBC 9.4 RBC 4.99 Hgb 16.0 Hct 46.2 MCV 92.6 MCH 32.1 MCHC 34.6 RDW 13.3 Plt Count 328 MPV 8.8 L Immature Gran % (Auto) 0.4 Neut % (Auto) 67.0 Lymph % (Auto) 19.4 L [place] % (Auto) 11.1 H Eos % (Auto) 1.6 Baso % (Auto) 0.5 Lymph # (Auto) 1.8 [place] # (Auto) 1.1 Eos # (Auto) 0.2 Baso # (Auto) 0.1 Abs Immat Gran (auto) 0.04 H Absolute Neuts (auto) 6.3 Absolute Nucleated RBC 0.000 Nucleated RBC % (auto) 0.0 PT INR Sodium 135 Potassium 4.0 Chloride 97 Carbon Dioxide 29 Anion Gap 13 BUN 15 Creatinine 0.68 Estim Creat Clear Calc 61.7 Estimated GFR > 60 Random Glucose 102 Calcium 10.3 H Total Bilirubin 0.4 AST 20 ALT 21 Alkaline Phosphatase 64 Troponin I High Sens < 2.7 B-Natriuretic Peptide Total Protein 6.9 Albumin 3.9 Urine Color Urine Appearance Urine pH Ur Specific [place] Urine Protein Urine Glucose (UA) Urine Ketones Urine Blood Urine Nitrite Ur Leukocyte Esterase Urine RBC Urine WBC Ur Squamous Epith Cells Urine Bacteria Hyaline Casts 09/27/22 09/27/22 09/27/22 10:49 10:49 11:51 WBC RBC Hgb Hct MCV MCH MCHC RDW Plt Count MPV Immature Gran % (Auto) Neut % (Auto) Lymph % (Auto) [place] % (Auto) Eos % (Auto) Baso % (Auto) Lymph # (Auto) [place] # (Auto) Eos # (Auto) Baso # (Auto) Abs Immat Gran (auto) Absolute Neuts (auto) Absolute Nucleated RBC Nucleated RBC % (auto) PT 14.2 H INR 1.2 H Sodium Potassium Chloride Carbon Dioxide Anion Gap BUN Creatinine Estim Creat Clear Calc Estimated GFR Random Glucose Calcium Total Bilirubin AST ALT Alkaline Phosphatase Troponin I High Sens B-Natriuretic Peptide 48 Total Protein Albumin Urine Color Yellow Urine Appearance Clear Urine pH 6.0 Ur Specific [place] 1.010 Urine Protein Negative Urine Glucose (UA) Negative Urine Ketones Negative Urine Blood Negative Urine Nitrite Negative Ur Leukocyte Esterase Negative Urine RBC 0-2 Urine WBC 0-5 Ur Squamous Epith Cells 0-2 Urine Bacteria None Seen Hyaline Casts 0-2 Discharge Plan Discharge Anticipated Discharge Date/Time: 09/28/22 15:29 Patient Disposition: Home Health Service Discharge Diagnosis: Acute exacerbation of copd, acute on chronic respiratory failure Referrals: Daniel Yoon III, MD [Primary Care Provider] - 1 Week Discharge Medications: Continued budesonide 0.5 mg/2 mL suspension for nebulization 0.5 mg inhalation BID Qty: 60 11RF sodium chloride 7 % solution for nebulization 4 ml inhalation BID Qty: 240 11RF Trelegy Ellipta 200-62.5-25 mcg blister with device 1 ea inhalation DAILY potassium chloride 20 mEq tablet,ER particles/crystals 10 meq PO DAILY Culturelle 10 billion cell Capsule 1 cap PO DAILY magnesium oxide 400 mg magnesium Tablet 400 mg PO DAILY ipratropium-albuterol 0.5 mg-3 mg(2.5 mg base)/3 mL solution for nebulization 3 ml inhalation TID hydrochlorothiazide 25 mg tablet 25 mg PO DAILY sotalol 80 mg tablet 80 mg PO BID Eliquis 5 mg tablet 5 mg PO BID omeprazole 20 mg capsule,delayed release(DR/EC) 20 mg PO BID vit C,E,Zn,Kt-pimlg1-mla-zeax 250-2.5-0.5 mg capsule 1 cap PO BID calcium carbonate [Calcium 600] 600 mg calcium (1,500 mg) tablet 600 mg PO DAILY glucosamine-chondroitin 900 mg tablet 1,200 mg PO BID zolpidem [Ambien] 5 mg tablet 5 mg PO BEDTIME PRN (Reason: Sleep) lorazepam 0.5 mg tablet 0.5 mg PO BEDTIME PRN (Reason: Sleep) coenzyme Q10 400 mg capsule 400 mg PO DAILY guaifenesin [Mucinex] 600 mg tablet extended release 12hr 600 mg PO BID potassium chloride 20 mEq tablet,ER particles/crystals 20 meq PO BEDTIME atorvastatin 20 mg tablet 20 mg PO BEDTIME alendronate 70 mg tablet 70 mg PO CLEMENTS (DME) nebulizers Misc See Rx Instructions .ROUTE Rx Instructions: As directed (DME) Oxygen Home Use Kit See Rx Instructions .ROUTE Rx Instructions: As directed No Action albuterol sulfate 90 mcg/actuation HFA aerosol inhaler 2 puff PO Q6H PRN (Reason: for wheezing) Qty: 34 3RF fluticasone propion-salmeterol [Wixela Inhub] 500-50 mcg/dose blister with device 1 ea inhalation BID Spiriva with HandiHaler 18 mcg capsule, w/inhalation device 1 cap inhalation DAILY cefepime 2 gram Recon Soln 2 g IV Q12H Qty: 36 0RF tobramycin in 0.225 % NaCl [Avtar] 300 mg/5 mL solution for nebulization 300 mg inhalation BID 28 Days Qty: 280 6RF Rx Instructions: 28 days on and 28 days off ondansetron HCl 4 mg tablet 4 mg PO DAILY PRN (Reason: nausea and vomiting) Qty: 5 0RF Discharge Orders: Discharge Order (Routine); Ordered 09/28/22 Ordered By: Jeovanny Ricardo Diet: Advance to usual diet Activity on Discharge: As tolerated Stand Alone Forms: Patient Portal Discharge page Care Plan Goals: Full recovery from COPD exacerbation Health Concerns: Acute on chronic respiratory failure COPD Chronic bronchiectasis Plan of Treatment: Continue using your usual inhalers and take prednisone as directed. Follow-up with your primary care doctor within a week, call for appointment. Take Doxycline for bronchodilators Assessment: as above Discharge Date/Time: 09/28/22 17:06
[2022-09-28] MEDS: Magnesium Oxide 400 MG TABLET PO (08:37)
[2022-09-28] MEDS: Apixaban 5 MG TABLET PO (08:37)
[2022-09-28] MEDS: Sotalol HCL 80 MG TABLET PO (08:37)
[2022-09-28] MEDS: Potassium Chloride ER 10 MEQ TABLET.ER PO (08:38)
[2022-09-28] MEDS: guaiFENesin LA 600 MG TAB.ER.12H PO (08:38)
[2022-09-28] MEDS: hydroCHLOROthiazide 25 MG TABLET PO (08:38)
--- NOTE | 2022-09-28 11:07 | MHC.CM.PN ---
pt lives alone has home 02 is independet she has her car in parking lot dc plan home no servceis
[2022-09-28] MEDS: Doxycycline Monohydrate 100 MG CAPSULE PO (11:16)
[2022-09-28 14:18] VITALS: PULSE 74; RESP 20; O2SAT 99
[2022-09-28] MEDS: Fluticasone/Vilanterol 100/25 BLST.W.DEV 1 PUFF INHALE (14:26)
[2022-09-28 15:12] VITALS: BP 138/58; PULSE 73; RESP 15; TEMP 36.1; O2SAT 93
[2022-09-28] MEDS: rifAMPin 300 MG CAPSULE PO (15:54)
== END 2022-09-28 17:06 | disposition home or self-care (01) | DRG 190 ==
LOC: HO.ED 14:10 → HO.EDOVER 16:49 → HO.S3 16:58
PROVIDERS: Admitting Provider Internal Medicine; Emergency Provider Emergency Medicine; PCP Internal Medicine; Visit Provider Internal Medicine
DX: J47.1 Bronchiectasis with (acute) exacerbation (principal); J96.20 Acute and chronic respiratory failure, unspecified whether with hypoxia or hypercapnia; I48.21 Permanent atrial fibrillation; K21.9 Gastro-esophageal reflux disease without esophagitis; R91.1 Solitary pulmonary nodule; J43.9 Emphysema, unspecified; M81.0 Age-related osteoporosis without current pathological fracture; A31.0 Pulmonary mycobacterial infection; E78.5 Hyperlipidemia, unspecified; Z99.81 Dependence on supplemental oxygen; Z87.891 Personal history of nicotine dependence; Z79.01 Long term (current) use of anticoagulants; Z79.899 Other long term (current) drug therapy
CPT/HCPCS: 36415; 71045; 71046; 80048; 80053; 80076; 81001; 82784; 83880; 84484; 85025; 85610; 85652; 93005; 94640; 99285; J2920; J2930

== ENCOUNTER 2022-09-30 17:31 | Outpatient (REF) | payer MEDICARE, SELFPAY | END 2022-09-30 17:32 | disposition home or self-care (01) | LOC: HO.LNP 17:31 | PROVIDERS: Visit Provider Hospitalist | DX: A31.0 Pulmonary mycobacterial infection (principal); J15.5 Pneumonia due to Escherichia coli | CPT/HCPCS: 87070; 87107; 87116; 87205; 87206 ==

== ENCOUNTER → 2022-10-16 11:08 | Outpatient (BNVA) | payer MEDICARE, SELFPAY | PROVIDERS: PCP Internal Medicine; Visit Provider Hospitalist | DX: J44.0 Chronic obstructive pulmonary disease with (acute) lower respiratory infection (principal); J18.9 Pneumonia, unspecified organism; J47.9 Bronchiectasis, uncomplicated; A31.0 Pulmonary mycobacterial infection; R91.8 Other nonspecific abnormal finding of lung field; Z79.899 Other long term (current) drug therapy | CPT/HCPCS: 99212 ==

== ENCOUNTER 2022-11-06 08:53 | Outpatient (REF) | payer MEDICARE, SELFPAY | END 2022-11-06 08:54 | disposition home or self-care (01) | LOC: HO.LNP 08:53 | PROVIDERS: Visit Provider Hospitalist | DX: R50.9 Fever, unspecified (principal); R91.8 Other nonspecific abnormal finding of lung field; J44.9 Chronic obstructive pulmonary disease, unspecified; A31.0 Pulmonary mycobacterial infection; J18.9 Pneumonia, unspecified organism | CPT/HCPCS: 0241U; 87070; 87077; 87116; 87186; 87205; 87206; 99212 ==

== ENCOUNTER 2022-11-06 09:33 | Outpatient (REF) | payer MEDICARE, SELFPAY ==
[2022-11-06 10:20] LABS: Influenza A PCR NEGATIVE (Negative); Influenza B PCR NEGATIVE (Negative); Resp Syncy Virus RNA Qual PCR NEGATIVE (Negative); SARS COV2 PCR INHOUSE NEGATIVE (Negative)
== END 2022-11-06 09:34 | disposition home or self-care (01) ==
LOC: HO.LNP 09:33
PROVIDERS: Visit Provider Hospitalist
DX: Z13.89 Encounter for screening for other disorder (principal)
CPT/HCPCS: 0241U

== ENCOUNTER 2022-11-11 12:28 | Inpatient (IN) | payer MEDICARE, SELFPAY ==
--- NOTE | ~2022-11-11 | XR_ITS ---
EXAMINATION: XR CHEST CLINICAL INFORMATION: Ammonia COMPARISON: Chest x-ray on 09/27/2022 TECHNIQUE: Frontal view of the chest was obtained. FINDINGS: The cardiac silhouette is normal. There is mild diffuse bronchial wall thickening. There is linear atelectasis at the bilateral bases. There are no pleural effusions or pneumothoraces. The bones and soft tissues are unremarkable for the patient's age. XR/XR chest 1V IMPRESSION: 1. Bronchial wall thickening may be infectious and/or inflammatory in etiology. 2. Linear atelectasis at the bilateral bases.
[2022-11-11 12:33] VITALS: BP 169/70; PULSE 106; RESP 19; TEMP 37.1; O2SAT 92; BMI 23.2
--- NOTE | 2022-11-11 12:34 | ED.GENADULT ---
HPI - General Adult General Chief complaint: Upper Respiratory Symptoms Stated complaint: SOB sent in by DR Brown Time Seen by Provider: 11/11/22 12:46 Source: patient, RN notes reviewed and old records reviewed Mode of arrival: ambulatory Limitations: no limitations History of Present Illness HPI narrative: 82-year-old female with history of chronic hypoxic respiratory failure, COPD, tracheobronchial malacia, bronchiectasis, history of multidrug resistant stenotrophomonas, Aspergillosis colonization, who presents to the ER from home per her librarian helper's recommendations for treatment of Pseudomonas in her sputum. She was seen [address] Brown in the office for a sick visit. She had been sick for about 2 weeks with chest congestion and green sputum. Respiratory culture grew Pseudomonas. She has been on cefpodoxime and doxycycline with no improvement in her symptoms. She has been taking Tylenol for body aches and flu like symptoms. She is unsure if she has had a fever. She states she was negative for COVID, Flu and RSV in the office. MD complaint: pseudomonas positive sputum Onset (ago): day(s) Location: chest Radiation: non-radiation Severity: moderate Quality: aching Relieving factors: medication and rest Exacerbating factors: movement Associated symptoms: cough, headaches, loss of appetite, malaise and weakness Treatments prior to arrival: none Related Data Home Medications Medication Instructions Recorded Confirmed antiarthritic combination no.2 900 1,200 mg PO BID 07/03/20 09/27/22 mg tablet (glucosamine-chondroitin) apixaban 5 mg tablet (Eliquis) 5 mg PO BID 07/03/20 09/27/22 calcium carbonate 600 mg calcium 600 mg PO DAILY 07/03/20 09/27/22 (1,500 mg) tablet (Calcium) coenzyme Q10 400 mg capsule 400 mg PO DAILY 07/03/20 09/27/22 guaifenesin 600 mg tablet, 600 mg PO BID 07/03/20 09/27/22 extended release 12 hr (Mucinex) hydrochlorothiazide 25 mg tablet 25 mg PO DAILY 07/03/20 09/27/22 lorazepam 0.5 mg tablet 0.5 mg PO BEDTIME PRN Sleep 07/03/20 09/27/22 omeprazole 20 mg capsule,delayed 20 mg PO BID 07/03/20 09/27/22 release sotalol 80 mg tablet 80 mg PO BID 07/03/20 09/27/22 vit 1 cap PO BID 07/03/20 09/27/22 C,E,zinc,Oz-cxavl-7-lutein-zeaxanthin 250 mg-2.5 mg-0.5 mg capsule zolpidem 5 mg tablet (Ambien) 5 mg PO BEDTIME PRN Sleep 07/03/20 09/27/22 atorvastatin 20 mg tablet 20 mg PO BEDTIME 07/18/21 09/27/22 potassium chloride 20 mEq 20 meq PO BEDTIME 07/18/21 09/27/22 tablet,extended release(part/cryst) Oxygen Home Use 07/09/22 alendronate 70 mg tablet 70 mg PO CLEMENTS 07/09/22 09/27/22 nebulizers 07/09/22 Lactobacillus rhamnosus GG 10 1 cap PO DAILY 09/27/22 09/27/22 billion cell capsule (Culturelle) ethambutol 400 mg tablet 800 mg PO [facility] 09/27/22 09/27/22 fluticasone fur. 200 mcg-umeclid 1 ea inhalation DAILY 09/27/22 09/27/22 62.5 mcg-vilant 25 mcg inhalat.powder (Trelegy Ellipta) ipratropium 0.5 mg-albuterol 3 mg 3 ml inhalation TID 09/27/22 09/27/22 (2.5 mg base)/3 mL nebulization soln magnesium oxide 400 mg PO DAILY 09/27/22 09/27/22 potassium chloride 20 mEq 10 meq PO DAILY 09/27/22 09/27/22 tablet,extended release(part/cryst) rifampin 300 mg capsule 300 mg PO [facility] 09/27/22 09/27/22 Previous Rx's Medication Instructions Recorded budesonide 0.5 mg/2 mL suspension 0.5 mg (2 mL) inhalation BID #60 mL 03/04/22 for nebulization sodium chloride 7 % for 4 ml inhalation BID #240 mL 05/27/22 nebulization prednisone 10 mg tablet 20 mg PO DAILY 30 days #60 tabs 10/16/22 albuterol sulfate 90 mcg/actuation 2 puff PO Q6H PRN for wheezing #34 10/22/22 aerosol inhaler grams ondansetron HCl 4 mg tablet 4 mg PO DAILY PRN nausea and 11/06/22 vomiting #5 tabs Allergies Allergy/AdvReac Type Severity Reaction Status Date / Time No Known Allergies Allergy Verified 11/11/22 12:33 Review of Systems Review of Systems: Yes all other systems are reviewed and are negative [facility] Past Medical History Medical History (Updated 11/11/22 @ 14:21 by NAHID Da Silva) Afib Anxiety Bronchiectasis COPD (chronic obstructive pulmonary disease) GERD (gastroesophageal reflux disease) History of diverticulitis HTN (hypertension) Hyperlipidemia 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 anticoagulant therapy Pneumonia Pneumonitis Pulmonary nodules Supplemental oxygen dependent Surgical History History of appendectomy History of bronchoscopy Hx of colonoscopy Social History Social History Household Members: None [facility] Are you a primary daycare director to a significant other at home: No Do you presently have visiting nurse or other home services: No Alcohol intake: current Alcohol intake frequency: holidays/special occasions only Patient Tobacco Use Status: Former Tobacco user Quit Date: 1998 Tobacco use type: Cigarette Years Smoked: 35 Advance Directives: Yes Advance Directives on File: Yes Advance Directives Date on File: 01/31/22 service: No Physical Exam ED Vital Signs: Vital Signs - 24 hr 11/11/22 12:33 11/11/22 14:27 Temperature 98.7 F 98.0 F Pulse Rate 106 H 96 Respiratory Rate 19 20 Blood Pressure 169/70 H 142/76 H Pulse Oximetry 92 93 Oxygen Delivery Method Nasal Cannula Nasal Cannula Oxygen Flow Rate 4 BMI result Body Mass Index 23.2 Appearance: Alert. Oriented X3. No acute distress. On supplemental oxygen Head: normocephalic, atraumatic. Eyes: Pupils equal, round and reactive to light. ENT: Pharynx normal. No tonsillar swelling or exudate. Neck: Normal inspection. Neck supple. CVS: Normal heart rate and rhythm. Pulses normal. Respiratory: No respiratory distress. Breath sounds with faint end expiratory wheezes in the BANDAR anteriorly, otherwise diminished throughout posteriorly Abdomen: Soft and nontender. +BS x4 Skin: Skin warm and dry. Normal skin color. Normal skin turgor. No rashes. Extremities: No lower extremity edema. No joint swelling. Neuro/psych: Oriented X 3. No motor deficit. No sensory deficit. CN II-XII intact. Normal speech and cognition. Course Course Course Narrative: RME: 82 yold female with emphysema oxygen dependent sent in by Dr. Brown pulmonolgy for positve Pseudomonoas sputum. He called ED and wants patient to receive cefepime and zosyn during stay in hospital. Patient coughing and SOB for weeks. labs, antiobics, chest xray ordered Reevaluation(s) Reevaluation #1: Spoke with the microbiology lab. Their sensitivities to Zosyn and cefepime only. When the lab attempted to grow additional sensitivities for quinolones they were unsuccessful. They reported that if additional sensitivities were requested, they would need to send the specimen out to a reference lab. Will plan to admit the patient for IV cefepime for treatment of her Pseudomonas. Time: 13:35 Reevaluation #2: Dr. Brown reports in the past they have tried low-dose Levaquin because she is on sotalol while monitoring her EKG during treatment. This was not successful in the past. He is recommending admission with IV cefepime for treatment Time: 14:19 Medications Administered Generic Name Dose Route Start Last Admin Trade Name Freq PRN Reason Stop Dose Admin Cefepime HCl 2 gm/ Sodium 50 mls @ 100 mls/hr 11/11/22 13:15 11/11/22 13:41 Chloride IV 100 mls/hr Q12H APPLE Administration Medical Decision Making Medical Decision Making [facility] Narrative: 82-year-old female with history of chronic hypoxic respiratory failure on 2L NC PRN (currently around the clock), COPD, tracheobronchial malacia, bronchiectasis, history of multidrug resistant stenotrophomonas, Aspergillosis colonization, who presents to the ER from home per her librarian helper's recommendations for treatment of Pseudomonas in her sputum. She presents to the ER today saturating 90% on 2 L nasal cannula. When she has a coughing fit she desats to the low 80s, requires up titration of oxygen to 4 L nasal cannula. Spoke with the microbiology lab and they only have sensitivities to Zosyn and cefepime. Unable to get sensitivities to other antibiotics with, will need to be a send out if desired. Will plan for admission for IV antibiotics. Patient expressed that she would like a midline or a PICC to go home with IV antibiotics as soon as possible. 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 Will plan for admission. Differential Diagnosis Differential Diagnoses: The differential diagnosis associated with the presentation includes multi-drug resistane PSA, timmons-sensitive PSA, PNA, bronchitis, pneumonitis, bronchiectasis Admission/Observation Consideration of admission/observation: Escalation of care including admission/observation considered Potentially resistant infection, acute on chronic hypoxic respiratory failure Consult Healthcare Provider Management of the patient was discussed with: Hospitalist and Medical Csr Dr. Brown from pulmonology recommending admission for IV cefepime Lab Data MDM Lab Attestation statement: I reviewed the patient's lab results. 11/11/22 12:56 11/11/22 12:55 Labs: Lab Results 11/11/22 11/11/22 11/11/22 Range/Units 12:55 12:55 12:56 WBC 9.3 (4.8-10.8) X10*3/uL RBC 4.60 (4.20-5.50) X10*6/uL Hgb 14.8 (12.0-16.0) g/dl Hct 43.4 (37.0-47.0) % MCV 94.3 (80.0-98.0) fL MCH 32.2 (27.0-33.0) pg MCHC 34.1 (31.0-35.0) g/dl RDW 13.6 (11.0-16.0) % Plt Count 393 (160-400) X10*3/uL MPV 8.6 L (9.4-12.3) fL Immature Gran % (Auto) 1.6 H (0.0-0.4) % Neut % (Auto) 74.9 H (45-73) % Lymph % (Auto) 16.5 L (20-40) % [place] % (Auto) 6.7 (2-11) % Eos % (Auto) 0.1 (0-4) % Baso % (Auto) 0.2 (0-2) % Lymph # (Auto) 1.5 (1.2-4.9) X10*3/uL [place] # (Auto) 0.6 (0.1-1.2) X10*3/uL Eos # (Auto) 0.0 (0.0-0.4) X10*3/uL Baso # (Auto) 0.0 (0.0-0.2) X10*3/uL Abs Immat Gran (auto) 0.15 H (0.00-0.03) X10*3/uL Absolute Neuts (auto) 6.9 (2.0-8.3) x10*3/uL Absolute Nucleated RBC 0.000 (0.0-0.012) X10*3/uL Nucleated RBC % (auto) 0.0 (0.0-0.2) /100WBC PT (10.0-13.1) SEC INR (0.9-1.1) APTT (26.0-36.4) SEC Sodium 136 (135-145) mmol/L Potassium 4.5 (3.3-5.1) mmol/L Chloride 99 (96-108) mmol/L Carbon Dioxide 25 (22-29) mmol/L Anion Gap 17 (12-20) BUN 16 (9-16) mg/dL Creatinine 0.70 (0.5-1.4) mg/dL Estim Creat Clear Calc 59.0 Estimated GFR > 60 Random Glucose 130 H (60-115) mg/dL Lactic Acid 0.9 (0.5-2.0) mmol/L Calcium 10.3 H (8.4-10.2) mg/dL Total Bilirubin 0.4 (0.0-1.0) mg/dL AST 17 (5-31) U/L ALT 18 (0-31) U/L Alkaline Phosphatase 64 (39-117) U/L Total Protein 7.7 (6.5-8.0) g/dL Albumin 4.1 (3.5-5.0) g/dL Procalcitonin ng/mL 11/11/22 11/11/22 Range/Units 12:56 13:06 WBC (4.8-10.8) X10*3/uL RBC (4.20-5.50) X10*6/uL Hgb (12.0-16.0) g/dl Hct (37.0-47.0) % MCV (80.0-98.0) fL MCH (27.0-33.0) pg MCHC (31.0-35.0) g/dl RDW (11.0-16.0) % Plt Count (160-400) X10*3/uL MPV (9.4-12.3) fL Immature Gran % (Auto) (0.0-0.4) % Neut % (Auto) (45-73) % Lymph % (Auto) (20-40) % [place] % (Auto) (2-11) % Eos % (Auto) (0-4) % Baso % (Auto) (0-2) % Lymph # (Auto) (1.2-4.9) X10*3/uL [place] # (Auto) (0.1-1.2) X10*3/uL Eos # (Auto) (0.0-0.4) X10*3/uL Baso # (Auto) (0.0-0.2) X10*3/uL Abs Immat Gran (auto) (0.00-0.03) X10*3/uL Absolute Neuts (auto) (2.0-8.3) x10*3/uL Absolute Nucleated RBC (0.0-0.012) X10*3/uL Nucleated RBC % (auto) (0.0-0.2) /100WBC PT 13.7 H (10.0-13.1) SEC INR 1.2 H (0.9-1.1) APTT 41.3 H (26.0-36.4) SEC Sodium (135-145) mmol/L Potassium (3.3-5.1) mmol/L Chloride (96-108) mmol/L Carbon Dioxide (22-29) mmol/L Anion Gap (12-20) BUN (9-16) mg/dL Creatinine (0.5-1.4) mg/dL Estim Creat Clear Calc Estimated GFR Random Glucose (60-115) mg/dL Lactic Acid (0.5-2.0) mmol/L Calcium (8.4-10.2) mg/dL Total Bilirubin (0.0-1.0) mg/dL AST (5-31) U/L ALT (0-31) U/L Alkaline Phosphatase (39-117) U/L Total Protein (6.5-8.0) g/dL Albumin (3.5-5.0) g/dL Procalcitonin 0.11 ng/mL Independent Interpretation I performed an independent interpretation of an: Plain X-Ray Interpretation: Chest x-ray reviewed, no lobar pneumonia, chronic reticular opacities bilaterally Radiology Impression Discussion of test interpretation with radiology: I have reviewed the radiologist's reading. Radiologist Impression: ?XR/XR chest 1V IMPRESSION: 1.? Bronchial wall thickening may be infectious and/or inflammatory in etiology. 2.? Linear atelectasis at the bilateral bases. External Record Review External record reviewed: Office record, Outpatient record, Prior outpatient labs and Prior outpatient radiology Prescription Management I considered prescription management with: Antibiotic Chronic Conditions Patient?s care impacted by: Other (COPD, pneumonitis, bronchiectasis) Critical Care Time Critical Care Time Critical Care Time: Yes Total Critical Care Time: 41 Attestation: I have personally provided critical care time exclusive of time spent on separately billable procedures. Time includes review of lab data, radiology results, discussion with consultants, and monitoring for potential decompensation. Intervention performed as documented. Discharge Plan Discharge Clinical Impression: Bronchiectasis, Positive sputum culture for Pseudomonas Patient Disposition: Admitted As Inpatient
[2022-11-11 13:09] LABS: MANUAL DIFF FLAG NO
[2022-11-11 13:10] LABS: Basophils Percent Auto 0.2 % (0-2); Eosinophils Percent Auto 0.1 % (0-4); Hematocrit 43.4 % (37.0-47.0); Hemoglobin 14.8 g/dl (12.0-16.0); Imm Gran Abs Auto 0.15 X10*3/uL (0.00-0.03); Imm Gran Pct Auto 1.6 % (0.0-0.4); Lymphocytes Absolute Auto 1.5 X10*3/uL (1.2-4.9); Lymphocytes Percent Auto 16.5 % (20-40); Mean Corpuscular HGB Conc 34.1 g/dl (31.0-35.0); Mean Corpuscular Hemoglobin 32.2 pg (27.0-33.0); Mean Corpuscular Volume 94.3 fL (80.0-98.0); Mean Platelet Volume 8.6 fL (9.4-12.3); Monocytes Absolute Auto 0.6 X10*3/uL (0.1-1.2); Monocytes Percent Auto 6.7 % (2-11); Neutrophils Absolute Auto 6.9 x10*3/uL (2.0-8.3); Neutrophils Percent Auto 74.9 % (45-73); Platelet Count 393 X10*3/uL (160-400); Red Cell Distribution Width 13.6 % (11.0-16.0); White Blood Count 9.3 X10*3/uL (4.8-10.8)
[2022-11-11 13:17] LABS: INTERNATIONAL NORM RATIO 1.2 (0.9-1.1); Prothrombin Time 13.7 SEC (10.0-13.1)
[2022-11-11 13:19] LABS: Partial Thromboplastin Time 41.3 SEC (26.0-36.4)
[2022-11-11 13:29] LABS: Lactic Acid 0.9 mmol/L (0.5-2.0)
[2022-11-11 13:31] LABS: Alanine Aminotransferase 18 U/L (0-31); Albumin Level 4.1 g/dL (3.5-5.0); Alkaline Phosphatase 64 U/L (39-117); Anion Gap 17 (12-20); Aspartate Amino Transferase 17 U/L (5-31); Bilirubin Total 0.4 mg/dL (0.0-1.0); Blood Urea Nitrogen 16 mg/dL (9-16); Calcium 10.3 mg/dL (8.4-10.2); Carbon Dioxide 25 mmol/L (22-29); Chloride 99 mmol/L (96-108); Estimated Glomerular Filt Rate > 60; Glucose Random 130 mg/dL (60-115); Potassium 4.5 mmol/L (3.3-5.1); Sodium 136 mmol/L (135-145); Total Protein 7.7 g/dL (6.5-8.0)
[2022-11-11] MEDS: cefEPime HCl 2 GM in 0.9 % Sodium Chloride 50 ML IV ×2 (13:41→23:34)
[2022-11-11 13:55] LABS: Procalcitonin 0.11 ng/mL
[2022-11-11 14:27] VITALS: BP 142/76; PULSE 96; RESP 20; TEMP 36.7; O2SAT 93
[2022-11-11 14:50] VITALS: O2SAT 93
--- NOTE | 2022-11-11 14:58 | P.HPHOSP_ITS ---
History of Present Illness Date of Service: 11/11/22 Chief Complaint: SOB 82 year old women with a history of aspergillus and pseudomonas aeruginosa presents to the ED with increased sob over the last week. She has followed closely with Dr. 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 She also has a hx of bronch with stenotrophomonas. She was seen by her chronometer assembler and adjuster on 11/06/2022 and at that time had felt unwell with chest congestion and green sputum with nausea. At that time she was treated with Vantin and doxycycline along with a prednisone taper and sputum culture was ordered. Subsequently her sputum culture was positive again for Pseudomonas aeruginosa. She was told by her chronometer assembler and adjuster to come to the hospital to be treated with IV antibiotics. Patient denies any chest pain, recent travel, sick contacts, nausea, vomiting, diarrhea. She is compliant with her medications at home including oxygen therapy. In the ER, her labs noted to be within acceptable limits, vital signs stable. She was started on cefepime 2 mg every 12 hours. To be admitted for further management and treatment of Pseudomonas aeruginosa positive sputum Review of Systems Review of Systems: Denies any recent fever chills or decrease in appetite respiratory chronic rhonchi/diminished cardiovascular no chest pain gastrointestinal denies any dysphagia abdominal pain nausea vomiting or diarrhea genitourinary denies any dysuria frequency or hematuria musculoskeletal denies any joint pain or swelling neuropsych denies any weakness or seizures all other systems reviewed are negative [facility] Medical History (Updated 11/12/22 @ 08:48 by Dominick Brown MD) Afib Anxiety Bronchiectasis COPD (chronic obstructive pulmonary disease) GERD (gastroesophageal reflux disease) History of diverticulitis HTN (hypertension) Hyperlipidemia 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 anticoagulant therapy Pneumonia Pneumonitis Pulmonary nodules Supplemental oxygen dependent Surgical History History of appendectomy History of bronchoscopy Hx of colonoscopy Social History Household Members: Other Household Members Other:: alone Housing: Condominium Are you a primary child caregiver to a significant other at home: No Do you presently have visiting nurse or other home services: No Alcohol intake: never Patient Tobacco Use Status: Never used Tobacco Tobacco use type: Cigarette Years Smoked: 35 Smoked in Last 30 Days: No Use of substances other than those prescribed or required for medical reasons: No Currently Displaying Signs/Symptoms of Drug Intoxication Withdrawal: No Have you been hit, kicked, punched, or otherwise hurt by someone within the past year? If so, by whom?: No Do you feel safe in your current relationship?: Yes Is there a partner from a previous relationship who is making you feel unsafe now?: No Are you made to feel afraid or neglected: No Advance Directives: Yes Advance Directives on File: Yes Advance Directives Date on File: 01/31/22 Do you have thoughts of harming others: None Do you have a plan to hurt others: No Plan Recently lost weight without trying: No Nutrition Risks: No Nutritional Risk Patient : No : No Poor oral hygiene: No service: No Current occupational status: retired [employer] Allergies Allergy/AdvReac Type Severity Reaction Status Date / Time No Known Allergies Allergy Verified 11/11/22 12:33 Active Medications: Current Medications Cefepime HCl 2 gm/ Sodium (Chloride) 50 mls @ 100 mls/hr IV Q12H APPLE Last Infusion: 11/11/22 14:45 Dose: Infused Pharmacy Consult (Consult Rx Perform Med Rec) 1 each MISCELLANE ONCE PRN PRN Reason: Consult order Home Medications Medication Instructions Recorded Confirmed Last Taken Type antiarthritic combination no.2 900 1,200 mg PO BID 07/03/20 11/11/22 09/26/22 History mg tablet (glucosamine-chondroitin) apixaban 5 mg tablet (Eliquis) 5 mg PO BID 07/03/20 11/11/22 11/11/22 History calcium carbonate 600 mg calcium 600 mg PO DAILY 07/03/20 11/11/22 11/11/22 History (1,500 mg) tablet (Calcium) coenzyme Q10 400 mg capsule 400 mg PO DAILY 07/03/20 11/11/22 11/11/22 History guaifenesin 600 mg tablet, 600 mg PO BID 07/03/20 11/11/22 11/11/22 History extended release 12 hr (Mucinex) hydrochlorothiazide 25 mg tablet 25 mg PO DAILY 07/03/20 11/11/22 11/11/22 History lorazepam 0.5 mg tablet 0.5 mg PO BEDTIME PRN Sleep 07/03/20 11/11/22 11/10/22 History omeprazole 20 mg capsule,delayed 20 mg PO BID 07/03/20 11/11/22 11/11/22 History release sotalol 80 mg tablet 80 mg PO BID 07/03/20 11/11/22 11/11/22 History vit 1 cap PO BID 07/03/20 11/11/22 09/26/22 History C,E,zinc,Pw-tezsx-4-lutein-zeaxanthin 250 mg-2.5 mg-0.5 mg capsule zolpidem 5 mg tablet (Ambien) 5 mg PO BEDTIME PRN Sleep 07/03/20 11/11/22 09/26/22 History atorvastatin 20 mg tablet 20 mg PO BEDTIME 07/18/21 11/11/22 11/10/22 History potassium chloride 20 mEq 20 meq PO BEDTIME 07/18/21 11/11/22 11/10/22 History tablet,extended release(part/cryst) Oxygen Home Use 07/09/22 Unknown History alendronate 70 mg tablet 70 mg PO CLEMENTS 07/09/22 11/11/22 11/10/22 History nebulizers 07/09/22 Unknown History Lactobacillus rhamnosus GG 10 1 cap PO DAILY 09/27/22 11/11/22 09/27/22 History billion cell capsule (Culturelle) fluticasone fur. 200 mcg-umeclid 1 ea inhalation DAILY 09/27/22 09/27/22 Unknown History 62.5 mcg-vilant 25 mcg inhalat.powder (Trelegy Ellipta) ipratropium 0.5 mg-albuterol 3 mg 3 ml inhalation TID 09/27/22 11/11/22 11/11/22 History (2.5 mg base)/3 mL nebulization soln magnesium oxide 400 mg PO DAILY 09/27/22 11/11/22 11/11/22 History potassium chloride 20 mEq 10 meq PO DAILY 09/27/22 11/11/22 11/11/22 History tablet,extended release(part/cryst) fluticasone 500 mcg-salmeterol 50 1 ea inhalation BID 11/11/22 11/11/22 11/11/22 History mcg/dose blistr powdr for inhalation (Wixela Inhub) prednisone 10 mg tablet 10 mg PO Q2D 11/11/22 11/11/22 11/11/22 History tiotropium bromide 18 mcg capsule 1 cap inhalation DAILY 11/11/22 11/11/22 11/11/22 History with inhalation device (Spiriva with HandiHaler) Physical Exam Vital Signs and Narrative: Vital Signs: Last Vital Signs Temp 98.0 F 11/11/22 14:27 Pulse 96 11/11/22 14:27 Resp 20 11/11/22 14:27 BP 142/76 H 11/11/22 14:27 Pulse Ox 93 11/11/22 14:50 O2 Del Method Nasal Cannula 11/11/22 14:50 O2 Flow Rate 4 11/11/22 14:27 Oxygen Flow Rate 4 11/11/22 14:50 BMI result Body Mass Index 23.2 Results Labs 11/11/22 12:56 11/11/22 12:55 Labs: Laboratory Results - last 24 hr 11/11/22 11/11/22 11/11/22 12:55 12:55 12:56 MCV 94.3 MCH 32.2 MCHC 34.1 RDW 13.6 Plt Count 393 MPV 8.6 L Immature Gran % (Auto) 1.6 H Neut % (Auto) 74.9 H Lymph % (Auto) 16.5 L Gaines % (Auto) 6.7 Eos % (Auto) 0.1 Baso % (Auto) 0.2 Lymph # (Auto) 1.5 Gaines # (Auto) 0.6 Eos # (Auto) 0.0 Baso # (Auto) 0.0 Abs Immat Gran (auto) 0.15 H Absolute Neuts (auto) 6.9 Absolute Nucleated RBC 0.000 Nucleated RBC % (auto) 0.0 PT INR APTT Anion Gap 17 Estim Creat Clear Calc 59.0 Estimated GFR > 60 Random Glucose 130 H Lactic Acid 0.9 Calcium 10.3 H Total Bilirubin 0.4 AST 17 ALT 18 Alkaline Phosphatase 64 Total Protein 7.7 Albumin 4.1 Procalcitonin 11/11/22 11/11/22 12:56 13:06 MCV MCH MCHC RDW Plt Count MPV Immature Gran % (Auto) Neut % (Auto) Lymph % (Auto) Gaines % (Auto) Eos % (Auto) Baso % (Auto) Lymph # (Auto) Gaines # (Auto) Eos # (Auto) Baso # (Auto) Abs Immat Gran (auto) Absolute Neuts (auto) Absolute Nucleated RBC Nucleated RBC % (auto) PT 13.7 H INR 1.2 H APTT 41.3 H Anion Gap Estim Creat Clear Calc Estimated GFR Random Glucose Lactic Acid Calcium Total Bilirubin AST ALT Alkaline Phosphatase Total Protein Albumin Procalcitonin 0.11 Imaging Radiologist's Impressions: Impressions Chest X-Ray 11/11/22 13:23 IMPRESSION: 1. Bronchial wall thickening may be infectious and/or inflammatory in etiology. 2. Linear atelectasis at the bilateral bases. Assessment and Plan (1) Positive sputum culture for Pseudomonas: Status: Acute Plan 82-year-old woman with history of Aspergillus Pseudomonas aeruginosa in the sputum as well as tracheal bronchomalacia, emphysema and bronchiectases. She follows closely with Dr. Dominick Brown and has had multiple drug-resistant cultures as well as stenotrophomonas on bronchoscopy. She is presenting with a positive sputum culture of Pseudomonas and is to be admitted for IV antibiotics Pseudomonas aeruginosa Noted in sputum Cefepime 2 mg every 12 hours Pulmonology consultation, follows with Dr. Dominick Brown Emphysema/bronchomalacia/COPD chronic Continue DuoNebs Oxygen supplementation Prednisone Atrial fibrillation Continue Eliquis and sotalol Hypertension Continue hydrochlorothiazide GERD Continue PPI Mental health Continue home medications DVT prophylaxis with Omayra Attending Dr. Ricardo Full code Patient required 2 inpatient midnights for treatment of Pseudomonas aeruginosa requiring IV antibiotics and follow-up by pulmonology Time Spent With Patient Time: Total time managing care of this patient today ____ minutes. Quality Stroke Does the patient have a stroke diagnosis?: No VTE Prior VTE?: No VTE Risk Level:: Medical - moderate - high VTE Device Contraindication: Treatment Not Indicated VTE Drug Contraindication: N/A - Med Ordered
--- NOTE | 2022-11-11 14:59 | PHA.MEDREC ---
Pharmacy Consult ? Medication Reconciliation Pharmacy has completed the medication reconciliation. Patient is no longer on amikacin, ethambutol, or rifampin. States she has not started trelegy since she still has a stock pile of advair and spiriva. Prednisone is now 10 mg every other day. Patient also states that Dr Brown told her to hold [employer] patient is getting a PICC stephanie. Kavon
--- NOTE | 2022-11-11 16:49 | PC.NURSE ---
report given to Taniya GUERRIER on IMC, pt to be brought up by transport shortly. PT in agreement with plan
[2022-11-11] MEDS: Omeprazole 20 MG CAPSULE.DR PO (17:14)
[2022-11-11] MEDS: 0.9 % Sodium Chloride Flush 3 ML SYRINGE IVFLUSH ×2 (17:14→19:50)
[2022-11-11] MEDS: Albuterol Sulfate (0.083%) 2.5 MG/3 ML VIAL.NEB INHALE (18:53)
[2022-11-11 18:56] VITALS: PULSE 104; RESP 18; O2SAT 93
[2022-11-11 19:27] VITALS: BP 140/60; PULSE 105; RESP 20; TEMP 36.4; O2SAT 92
[2022-11-11] MEDS: Atorvastatin Calcium 20 MG TABLET PO (19:50)
[2022-11-11] MEDS: guaiFENesin LA 600 MG TAB.ER.12H PO (19:50)
[2022-11-11] MEDS: Acetaminophen 325 MG TABLET 650 MG PO (19:51)
[2022-11-11] MEDS: Potassium Chloride ER 20 MEQ TAB.ER.PRT PO (19:51)
[2022-11-11] MEDS: Sotalol HCL 80 MG TABLET PO (19:51)
[2022-11-11] MEDS: Zolpidem Tartrate 5 MG TABLET PO (22:10)
[2022-11-11] MEDS: LORazepam 0.5 MG TABLET PO (22:10)
[2022-11-11 23:32] VITALS: BP 158/69; PULSE 81; RESP 16; TEMP 36.7; O2SAT 97
[2022-11-12] VITALS (11 sets, daily range): BP systolic 117–164; BP diastolic 50–77; PULSE 74–98; RESP 18–21; TEMP 36.3–37.2; O2SAT 91–98
[2022-11-12] MEDS: Acetaminophen 325 MG TABLET 650 MG PO ×4 (04:48→20:59)
[2022-11-12] MEDS: Omeprazole 20 MG CAPSULE.DR PO ×2 (04:49→16:41)
[2022-11-12 06:39] LABS: Basophils Absolute Auto 0.1 X10*3/uL (0.0-0.2); Basophils Percent Auto 0.5 % (0-2); Eosinophils Absolute Auto 0.1 X10*3/uL (0.0-0.4); Eosinophils Percent Auto 0.6 % (0-4); Hematocrit 39.3 % (37.0-47.0); Hemoglobin 13.1 g/dl (12.0-16.0); Imm Gran Abs Auto 0.15 X10*3/uL (0.00-0.03); Imm Gran Pct Auto 1.5 % (0.0-0.4); Lymphocytes Absolute Auto 2.4 X10*3/uL (1.2-4.9); Lymphocytes Percent Auto 24.3 % (20-40); MANUAL DIFF FLAG SCAN; Mean Corpuscular HGB Conc 33.3 g/dl (31.0-35.0); Mean Corpuscular Hemoglobin 31.7 pg (27.0-33.0); Mean Corpuscular Volume 95.2 fL (80.0-98.0); Mean Platelet Volume 8.7 fL (9.4-12.3); Monocytes Absolute Auto 1.7 X10*3/uL (0.1-1.2); Monocytes Percent Auto 17.3 % (2-11); Neutrophils Absolute Auto 5.6 x10*3/uL (2.0-8.3); Neutrophils Percent Auto 55.8 % (45-73); Platelet Count 351 X10*3/uL (160-400); Red Blood Count 4.13 X10*6/uL (4.20-5.50); Red Cell Distribution Width 13.5 % (11.0-16.0); SCAN SMEAR FLAG 1
[2022-11-12 06:59] LABS: Blood Urea Nitrogen 17 mg/dL (9-16); Creatinine Clr Calc Pharmacy 62.6; Estimated Glomerular Filt Rate > 60; Glucose Random 109 mg/dL (60-115)
[2022-11-12 07:06] LABS: SLIDE REVIEW VERIFIED
[2022-11-12 07:13] LABS: Anion Gap 13 (12-20); Calcium 9.1 mg/dL (8.4-10.2); Carbon Dioxide 27 mmol/L (22-29); Chloride 102 mmol/L (96-108); Potassium 3.9 mmol/L (3.3-5.1); Sodium 138 mmol/L (135-145)
[2022-11-12] MEDS: Magnesium Oxide 400 MG TABLET PO (08:28)
[2022-11-12] MEDS: guaiFENesin LA 600 MG TAB.ER.12H PO ×2 (08:28→20:59)
[2022-11-12] MEDS: 0.9 % Sodium Chloride Flush 3 ML SYRINGE IVFLUSH ×3 (08:28→21:00)
[2022-11-12] MEDS: hydroCHLOROthiazide 25 MG TABLET PO (08:30)
[2022-11-12] MEDS: Sotalol HCL 80 MG TABLET PO ×2 (08:31→21:00)
[2022-11-12] MEDS: Potassium Chloride ER 10 MEQ TABLET.ER PO (08:31)
--- NOTE | 2022-11-12 08:41 | PM.CNPUL ---
History of Present Illness History of Present Illness Consult date: 11/12/22 Chief complaint: Bronchiectases Narrative: This is an inpatient pulmonary consultation. The patient is an 82-year-old with known history of COPD, bronchiectasis, mac, atrial fibrillation on sotalol and chronic respiratory failure on oxygen who has been doing poorly for the last several months. Back in September she was admitted to the hospital with bronchopneumonia and acute on chronic hypoxic respiratory failure. She was treated and released. Initially she did feel better but then she started having worsening symptoms again. I did evaluate her as an outpatient. At that point the patient is having excessive productive phlegm greenish in color denies any hemoptysis and difficulty breathing. The patient was given a couple antibiotics although limited because of her sotalol and adverse reactions. And she was also given prednisone. Unfortunately continue getting worse. Her mucous culture did come back positive for Pseudomonas resistant to oral oral antibiotics. Therefore in view of her failing outpatient therapy in worsening symptoms she was directed to go to the ER. She was admitted. Her x-ray demonstrated significant airway disease. She was placed on oxygen and she was started on cefepime. She still not feeling better. Explained to the patient that she is going to need a PICC line and receive a 3 weeks of IV antibiotics. The patient also may benefit from inhaled tobramycin. Although we will reassess that as an outpatient. The patient already had an adverse reaction to inhaled amikacin so there is some reservations about potential cross reactivity between the 2. Therefore will continue to assess that as an outpatient if the Pseudomonas returns. Review of Systems Review of Systems: Denies any recent fever chills or decrease in appetite respiratory +productive cough, +SOB cardiovascular no chest pain gastrointestinal denies any dysphagia abdominal pain nausea vomiting or diarrhea genitourinary denies any dysuria frequency or hematuria musculoskeletal denies any joint pain or swelling neuropsych denies any weakness or seizures all other systems reviewed are negative [facility] Past Medical History Medical History (Updated 11/12/22 @ 08:48 by Dominick Brown MD) Afib Anxiety Bronchiectasis COPD (chronic obstructive pulmonary disease) GERD (gastroesophageal reflux disease) History of diverticulitis HTN (hypertension) Hyperlipidemia 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 anticoagulant therapy Pneumonia Pneumonitis Pulmonary nodules Supplemental oxygen dependent Surgical History Surgical History History of appendectomy History of bronchoscopy Hx of colonoscopy Social History Social History Household Members: Other Household Members Other:: alone Housing: Condominium Are you a primary career services officer to a significant other at home: No Do you presently have visiting nurse or other home services: No Alcohol intake: never Patient Tobacco Use Status: Never used Tobacco Tobacco use type: Cigarette Years Smoked: 35 Smoked in Last 30 Days: No Use of substances other than those prescribed or required for medical reasons: No Currently Displaying Signs/Symptoms of Drug Intoxication Withdrawal: No Have you been hit, kicked, punched, or otherwise hurt by someone within the past year? If so, by whom?: No Do you feel safe in your current relationship?: Yes Is there a partner from a previous relationship who is making you feel unsafe now?: No Are you made to feel afraid or neglected: No Advance Directives: Yes Advance Directives on File: Yes Advance Directives Date on File: 01/31/22 Do you have thoughts of harming others: None Do you have a plan to hurt others: No Plan Recently lost weight without trying: No Nutrition Risks: No Nutritional Risk Patient : No : No Poor oral hygiene: No service: No Meds Allergies Allergy/AdvReac Type Severity Reaction Status Date / Time No Known Allergies Allergy Verified 11/11/22 12:33 Active Medications: Current Medications Acetaminophen (Acetaminophen 325 Mg Tablet) 650 mg PO Q6H PRN PRN Reason: Pain, Mild (Pain Scale 1-3) Last Admin: 11/12/22 05:00 Dose: 325 mg Albuterol Sulfate (Albuterol Sulfate (0.083%) 2.5 Mg/3 Ml Vial.Neb) 2.5 mg INHALE RQ4H WHILE AWAKE APPLE Last Admin: 11/11/22 18:53 Dose: 2.5 mg Albuterol/Ipratropium (Albuterol/Iprat 2.5/0.5mg 3 Ml Ampul.Neb) 3 ml INHALE RTID APPLE Last Admin: 11/11/22 18:51 Dose: Not Given Albuterol/Ipratropium (Albuterol/Iprat 2.5/0.5mg 3 Ml Ampul.Neb) 3 ml INHALE Q4H PRN PRN Reason: Wheezing Apixaban (Apixaban 5 Mg Tablet) 5 mg PO BID [facility] Last Admin: 11/12/22 08:32 Dose: Not Given Atorvastatin Calcium (Atorvastatin Calcium 20 Mg Tablet) 20 mg PO BEDTIME [facility] Last Admin: 11/11/22 19:50 Dose: 20 mg Calcium Carbonate (Calcium Carbonate 500 Mg Tablet) 500 mg PO DAILY [facility] Last Admin: 11/12/22 08:31 Dose: 500 mg Fluticasone/Vilanterol (Fluticasone/Vilanterol 200/25 Blst.W.Dev) 1 puff INHALE RDAILY [facility] Guaifenesin (Guaifenesin La 600 Mg Tab.Er.12h) 600 mg PO BID [facility] Last Admin: 11/12/22 08:28 Dose: 600 mg Hydrochlorothiazide (Hydrochlorothiazide 25 Mg Tablet) 25 mg PO DAILY [facility]; Protocol Last Admin: 11/12/22 08:30 Dose: 25 mg Cefepime HCl 2 gm/ Sodium (Chloride) 50 mls @ 100 mls/hr IV Q12H [facility] Last Infusion: 11/12/22 00:05 Dose: Infused Lorazepam (Lorazepam 0.5 Mg Tablet) 0.5 mg PO BEDTIME PRN PRN Reason: Sleep Last Admin: 11/11/22 22:10 Dose: 0.5 mg Magnesium Oxide (Magnesium Oxide 400 Mg Tablet) 400 mg PO DAILY [facility] Last Admin: 11/12/22 08:28 Dose: 400 mg Omeprazole (Omeprazole 20 Mg Capsule.Dr) 20 mg PO BID@0630,1630 [facility] Last Admin: 11/12/22 04:49 Dose: 20 mg Ondansetron HCl (Ondansetron Hcl 4 Mg/2 Ml Vial) 4 mg IVPUSH Q8H PRN PRN Reason: Nausea and Vomiting Pharmacy Consult (Consult Rx Perform Med Rec) 1 each MISCELLANE ONCE PRN PRN Reason: Consult order Potassium Chloride (Potassium Chloride Er 10 Meq Tablet.Er) 10 meq PO DAILY [facility] Last Admin: 11/12/22 08:31 Dose: 10 meq Potassium Chloride (Potassium Chloride Er 20 Meq Tab.Er.Prt) 20 meq PO BEDTIME [facility] Last Admin: 11/11/22 19:51 Dose: 20 meq Prednisone (Prednisone 10 Mg Tablet) 10 mg PO Q2D [facility] Sodium Chloride (0.9 % Sodium Chloride Flush 3 Ml Syringe) 3 ml IVFLUSH QSHIFT [facility] Last Admin: 11/12/22 08:28 Dose: 3 ml Sotalol HCl (Sotalol Hcl 80 Mg Tablet) 80 mg PO BID [facility] Last Admin: 11/12/22 08:31 Dose: 80 mg Tiotropium Union (Tiotropium Union 18 Mcg Cap.W.Dev) 1 puff INHALE RDAILY [facility] Zolpidem Tartrate (Zolpidem Tartrate 5 Mg Tablet) 5 mg PO BEDTIME PRN PRN Reason: Sleep Last Admin: 11/11/22 22:10 Dose: 5 mg Home Medications Medication Instructions Recorded Confirmed Last Taken Type antiarthritic combination no.2 900 1,200 mg PO BID 07/03/20 11/11/22 09/26/22 History mg tablet (glucosamine-chondroitin) apixaban 5 mg tablet (Eliquis) 5 mg PO BID 07/03/20 11/11/22 11/11/22 History calcium carbonate 600 mg calcium 600 mg PO DAILY 07/03/20 11/11/22 11/11/22 History (1,500 mg) tablet (Calcium) coenzyme Q10 400 mg capsule 400 mg PO DAILY 07/03/20 11/11/22 11/11/22 History guaifenesin 600 mg tablet, 600 mg PO BID 07/03/20 11/11/22 11/11/22 History extended release 12 hr (Mucinex) hydrochlorothiazide 25 mg tablet 25 mg PO DAILY 07/03/20 11/11/22 11/11/22 History lorazepam 0.5 mg tablet 0.5 mg PO BEDTIME PRN Sleep 07/03/20 11/11/22 11/10/22 History omeprazole 20 mg capsule,delayed 20 mg PO BID 07/03/20 11/11/22 11/11/22 History release sotalol 80 mg tablet 80 mg PO BID 07/03/20 11/11/22 11/11/22 History vit 1 cap PO BID 07/03/20 11/11/22 09/26/22 History C,E,zinc,Xq-ccybk-2-lutein-zeaxanthin 250 mg-2.5 mg-0.5 mg capsule zolpidem 5 mg tablet (Ambien) 5 mg PO BEDTIME PRN Sleep 07/03/20 11/11/22 09/26/22 History atorvastatin 20 mg tablet 20 mg PO BEDTIME 07/18/21 11/11/22 11/10/22 History potassium chloride 20 mEq 20 meq PO BEDTIME 07/18/21 11/11/22 11/10/22 History tablet,extended release(part/cryst) Oxygen Home Use 07/09/22 Unknown History alendronate 70 mg tablet 70 mg PO CLEMENTS 07/09/22 11/11/22 11/10/22 History nebulizers 07/09/22 Unknown History Lactobacillus rhamnosus GG 10 1 cap PO DAILY 09/27/22 11/11/22 09/27/22 History billion cell capsule (Culturelle) fluticasone fur. 200 mcg-umeclid 1 ea inhalation DAILY 09/27/22 09/27/22 Unknown History 62.5 mcg-vilant 25 mcg inhalat.powder (Trelegy Ellipta) ipratropium 0.5 mg-albuterol 3 mg 3 ml inhalation TID 09/27/22 11/11/22 11/11/22 History (2.5 mg base)/3 mL nebulization soln magnesium oxide 400 mg PO DAILY 09/27/22 11/11/22 11/11/22 History potassium chloride 20 mEq 10 meq PO DAILY 09/27/22 11/11/22 11/11/22 History tablet,extended release(part/cryst) fluticasone 500 mcg-salmeterol 50 1 ea inhalation BID 11/11/22 11/11/22 11/11/22 History mcg/dose blistr powdr for inhalation (Remy Myles) prednisone 10 mg tablet 10 mg PO Q2D 11/11/22 11/11/22 11/11/22 History tiotropium bromide 18 mcg capsule 1 cap inhalation DAILY 11/11/22 11/11/22 11/11/22 History with inhalation device (Spiriva with HandiHaler) Physical Exam Vital Signs: Vital Signs: Last Vital Signs Temp 98.7 F 11/12/22 07:31 Pulse 74 11/12/22 07:31 Resp 20 11/12/22 07:31 BP 122/57 L 11/12/22 07:31 Pulse Ox 96 11/12/22 07:31 O2 Del Method Nasal Cannula 11/12/22 07:31 O2 Flow Rate 3 11/12/22 07:31 Oxygen Flow Rate 4 11/11/22 14:50 BMI result Body Mass Index 23.2 Const: General: alert Neck: Neck: Yes normal visual inspection, Yes full ROM and Yes no lymphadenopathy Chest: Chest palpation & inspection: normal inspection of the chest Resp: Auscultation: no crackles, rales, rhonchi, wheezes and diminished lung sounds Cardio: Rate: regular rate Rhythm: regular rhythm Heart sounds: S1 normal heart sound present and S2 normal heart sound present GI: Palpation (GI): Soft to palpation and Tenderness to palpation present (GI) in the LLQ Auscultation: normal bowel sounds Skin: General skin exam: rashes and/or lesions noted Results Laboratory Findings 11/12/22 06:23 11/12/22 06:23 ABG, PT/INR, D-dimer: PT/INR, D-dimer PT 13.7 SEC (10.0-13.1) H 11/11/22 12:56 INR 1.2 (0.9-1.1) H 11/11/22 12:56 Abnormal lab findings: Abnormal Labs 11/11/22 11/11/22 11/11/22 12:55 12:56 12:56 RBC MPV 8.6 L Immature Gran % (Auto) 1.6 H Neut % (Auto) 74.9 H Lymph % (Auto) 16.5 L Christian % (Auto) Christian # (Auto) Abs Immat Gran (auto) 0.15 H PT 13.7 H INR 1.2 H APTT 41.3 H BUN Random Glucose 130 H Calcium 10.3 H 11/12/22 11/12/22 06:23 06:23 RBC 4.13 L MPV 8.7 L Immature Gran % (Auto) 1.5 H Neut % (Auto) Lymph % (Auto) Christian % (Auto) 17.3 H Christian # (Auto) 1.7 H Abs Immat Gran (auto) 0.15 H PT INR APTT BUN 17 H Random Glucose Calcium Assessment and Plan (1) Exacerbation of bronchiectasis due to infection: Status: Acute (2) Pseudomonas respiratory infection: Status: Acute (3) Pneumonia: Qualifiers: Pneumonia type: due to Escherichia coli Laterality: unspecified laterality Lung location: unspecified part of lung Qualified Code(s): J15.5 - Pneumonia due to Escherichia coli Status: Acute (4) COPD (chronic obstructive pulmonary disease): Status: Acute (5) Nontuberculous mycobacterial disease of lung: Status: Acute Plan Holding Eliquis for PICC line. If the PICC line is not scheduled for today, then should be on Lovenox Continue Cefepime, plan for 3 weeks of therapy CPT with aerobika 3-4 times a day Continue prednisone continue nebs QID and as needed Time Spent With Patient Time: Total time managing care of this patient today ____ minutes. Procedures Date of Service Date of Service: 11/12/22
[2022-11-12] MEDS: Albuterol/Iprat 2.5/0.5MG 3 ML AMPUL.NEB INHALE ×3 (08:59→19:39)
--- NOTE | 2022-11-12 09:17 | MHC.CM.PN ---
PT REPORTS SHE LIVES ALONE AND IS INDEPENDENT WITH CARE SHE HAS NO SERVICES PT HAS HOME O2 SHE USES PRN ONLY SHE HAS A HCP AND MOLST ON FILE PCP: SHIRLEY SEGUNDO IMM DELIVERED CURRENT DC PLAN IS HOME WITH NO SERVICES PT WILL DRIVE HERSELF AT DC
--- NOTE | 2022-11-12 09:59 | P.PNIM_ITS ---
Subjective Subjective Date of Service: 11/12/22 Review of Systems Follow up pseudomonas sputum sob with exertion oob ambulating Physical Exam Vital Signs: Vital Signs: Last Vital Signs Temp 98.7 F 11/12/22 07:31 Pulse 78 11/12/22 09:22 Resp 18 11/12/22 09:22 BP 122/57 L 11/12/22 07:31 Pulse Ox 96 11/12/22 07:31 O2 Del Method Nasal Cannula 11/12/22 07:31 O2 Flow Rate 3 11/12/22 07:31 Oxygen Flow Rate 4 11/11/22 14:50 BMI result Body Mass Index 23.2 Appearing in no acute distress lung sounds are clear to auscultation heart regular rate rhythm, clear S1, S2 positive bowel sounds, abdomen is soft, nontender neuro patient is alert x3, no focal deficits Objective Data Active Medications Acetaminophen (Acetaminophen 325 Mg Tablet) 650 mg PO Q6H PRN PRN Reason: Pain, Mild (Pain Scale 1-3) Last Admin: 11/12/22 05:00 Dose: 325 mg Documented By: SEAN Comments: extra dose. md carmona Albuterol Sulfate (Albuterol Sulfate (0.083%) 2.5 Mg/3 Ml Vial.Neb) 2.5 mg IN CRUMP RQ4H WHILE AWAKE [facility] Last Admin: 11/12/22 08:59 Dose: Not Given Documented By: KENNEDY Non-Admin Reason: Physician Held Med Albuterol/Ipratropium (Albuterol/Iprat 2.5/0.5mg 3 Ml Ampul.Neb) 3 ml INHALE RTID [facility] Last Admin: 11/12/22 08:59 Dose: 3 ml Documented By: KENNEDY Albuterol/Ipratropium (Albuterol/Iprat 2.5/0.5mg 3 Ml Ampul.Neb) 3 ml INHALE Q4H PRN PRN Reason: Wheezing Apixaban (Apixaban 5 Mg Tablet) 5 mg PO BID [facility] Last Admin: 11/12/22 08:32 Dose: Not Given Documented By: ALEX Non-Admin Reason: Patient Refused Atorvastatin Calcium (Atorvastatin Calcium 20 Mg Tablet) 20 mg PO BEDTIME [facility] Last Admin: 11/11/22 19:50 Dose: 20 mg Documented By: SEAN Calcium Carbonate (Calcium Carbonate 500 Mg Tablet) 500 mg PO DAILY [facility] Last Admin: 11/12/22 08:31 Dose: 500 mg Documented By: ALEX Fluticasone/Vilanterol (Fluticasone/Vilanterol 200/25 Blst.W.Dev) 1 puff INHALE RDAILY [facility] Last Admin: 11/12/22 09:00 Dose: Not Given Documented By: KENNEDY Non-Admin Reason: Med Not Available Guaifenesin (Guaifenesin La 600 Mg Tab.Er.12h) 600 mg PO BID [facility] Last Admin: 11/12/22 08:28 Dose: 600 mg Documented By: ALEX Hydrochlorothiazide (Hydrochlorothiazide 25 Mg Tablet) 25 mg PO DAILY [facility]; Protocol Last Admin: 11/12/22 08:30 Dose: 25 mg Documented By: ALEX Cefepime HCl 2 gm/ Sodium (Chloride) 50 mls @ 100 mls/hr IV Q12H [facility] Last Infusion: 11/12/22 00:05 Dose: 0 mls/hr Documented By: SEAN Lorazepam (Lorazepam 0.5 Mg Tablet) 0.5 mg PO BEDTIME PRN PRN Reason: Sleep Last Admin: 11/11/22 22:10 Dose: 0.5 mg Documented By: SEAN Magnesium Oxide (Magnesium Oxide 400 Mg Tablet) 400 mg PO DAILY [facility] Last Admin: 11/12/22 08:28 Dose: 400 mg Documented By: ALEX Omeprazole (Omeprazole 20 Mg Capsule.Dr) 20 mg PO BID@0630,1630 [facility] Last Admin: 11/12/22 04:49 Dose: 20 mg Documented By: SEAN Ondansetron HCl (Ondansetron Hcl 4 Mg/2 Ml Vial) 4 mg IVPUSH Q8H PRN PRN Reason: Nausea and Vomiting Pharmacy Consult (Consult Rx Perform Med Rec) 1 each MISCELLANE ONCE PRN PRN Reason: Consult order Potassium Chloride (Potassium Chloride Er 10 Meq Tablet.Er) 10 meq PO DAILY [facility] Last Admin: 11/12/22 08:31 Dose: 10 meq Documented By: ALEX Potassium Chloride (Potassium Chloride Er 20 Meq Tab.Er.Prt) 20 meq PO BEDTIME [facility] Last Admin: 11/11/22 19:51 Dose: 20 meq Documented By: SEAN Prednisone (Prednisone 10 Mg Tablet) 10 mg PO Q2D [facility] Sodium Chloride (0.9 % Sodium Chloride Flush 3 Ml Syringe) 3 ml IVFLUSH QSHIFT [facility] Last Admin: 11/12/22 08:28 Dose: 3 ml Documented By: ALEX Sotalol HCl (Sotalol Hcl 80 Mg Tablet) 80 mg PO BID [facility] Last Admin: 11/12/22 08:31 Dose: 80 mg Documented By: ALEX Tiotropium [place] (Tiotropium [place] 18 Mcg Cap.W.Dev) 1 puff INHALE RDAILY [facility] Zolpidem Tartrate (Zolpidem Tartrate 5 Mg Tablet) 5 mg PO BEDTIME PRN PRN Reason: Sleep Last Admin: 11/11/22 22:10 Dose: 5 mg Documented By: SEAN Labs 11/12/22 06:23 11/12/22 06:23 Labs: Laboratory Results - last 24 hr 11/11/22 11/11/22 11/11/22 12:55 12:55 12:56 MCV 94.3 MCH 32.2 MCHC 34.1 RDW 13.6 Plt Count 393 MPV 8.6 L Immature Gran % (Auto) 1.6 H Neut % (Auto) 74.9 H Lymph % (Auto) 16.5 L Brooks % (Auto) 6.7 Eos % (Auto) 0.1 Baso % (Auto) 0.2 Lymph # (Auto) 1.5 Brooks # (Auto) 0.6 Eos # (Auto) 0.0 Baso # (Auto) 0.0 Abs Immat Gran (auto) 0.15 H Absolute Neuts (auto) 6.9 Absolute Nucleated RBC 0.000 Nucleated RBC % (auto) 0.0 Smear Tech's Comments PT INR APTT Anion Gap 17 Estim Creat Clear Calc 59.0 Estimated GFR > 60 Random Glucose 130 H Lactic Acid 0.9 Calcium 10.3 H Total Bilirubin 0.4 AST 17 ALT 18 Alkaline Phosphatase 64 Total Protein 7.7 Albumin 4.1 Procalcitonin 11/11/22 11/11/22 11/12/22 12:56 13:06 06:23 MCV 95.2 MCH 31.7 MCHC 33.3 RDW 13.5 Plt Count 351 MPV 8.7 L Immature Gran % (Auto) 1.5 H Neut % (Auto) 55.8 Lymph % (Auto) 24.3 Brooks % (Auto) 17.3 H Eos % (Auto) 0.6 Baso % (Auto) 0.5 Lymph # (Auto) 2.4 Brooks # (Auto) 1.7 H Eos # (Auto) 0.1 Baso # (Auto) 0.1 Abs Immat Gran (auto) 0.15 H Absolute Neuts (auto) 5.6 Absolute Nucleated RBC 0.000 Nucleated RBC % (auto) 0.0 Smear Tech's Comments VERIFIED PT 13.7 H INR 1.2 H APTT 41.3 H Anion Gap Estim Creat Clear Calc Estimated GFR Random Glucose Lactic Acid Calcium Total Bilirubin AST ALT Alkaline Phosphatase Total Protein Albumin Procalcitonin 0.11 11/12/22 06:23 MCV MCH MCHC RDW Plt Count MPV Immature Gran % (Auto) Neut % (Auto) Lymph % (Auto) Brooks % (Auto) Eos % (Auto) Baso % (Auto) Lymph # (Auto) Brooks # (Auto) Eos # (Auto) Baso # (Auto) Abs Immat Gran (auto) Absolute Neuts (auto) Absolute Nucleated RBC Nucleated RBC % (auto) Smear Tech's Comments PT INR APTT Anion Gap 13 Estim Creat Clear Calc 62.6 Estimated GFR > 60 Random Glucose 109 Lactic Acid Calcium 9.1 D Total Bilirubin AST ALT Alkaline Phosphatase Total Protein Albumin Procalcitonin Assessment and Plan (1) Pseudomonas respiratory infection: Status: Acute Plan 82-year-old woman with 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 She follows closely with Dr. Dominick Brown and has had multiple drug-resistant cultures as well as?stenotrophomonas on bronchoscopy.? She is presenting with a positive sputum culture of Pseudomonas and is to be admitted for IV antibiotics Pseudomonas aeruginosa Noted in sputum Cefepime 2 mg every 12 hours Pulmonology consultation, follows with Dr. Dominick Brown Plan for midline (ordered) and several weeks of cefepime Emphysema/bronchomalacia/COPD chronic Continue DuoNebs Oxygen supplementation Prednisone, home dose Atrial fibrillation Continue Eliquis and sotalol Hypertension Continue hydrochlorothiazide GERD Continue PPI Mental health Continue home medications DVT prophylaxis with Omayra Attending Dr. Ribeiro Full code continued hospital stay for treatment of Pseudomonas aeruginosa requiring IV antibiotics and follow-up by pulmonology Time Spent With Patient Time: Total time managing care of this patient today ____ minutes. Quality Stroke Does the patient have a stroke diagnosis?: No VTE Prior VTE?: No VTE Risk Level:: Medical - moderate - high VTE Device Contraindication: Treatment Not Indicated VTE Drug Contraindication: N/A - Med Ordered
[2022-11-12] MEDS: cefEPime HCl 2 GM in 0.9 % Sodium Chloride 50 ML IV (13:31)
[2022-11-12] MEDS: Fluticasone/Vilanterol 200/25 BLST.W.DEV 1 PUFF INHALE (14:28)
[2022-11-12] MEDS: ondansetron HCL 4 MG/2 ML VIAL IVPUSH (16:41)
[2022-11-12] MEDS: Atorvastatin Calcium 20 MG TABLET PO (20:58)
[2022-11-12] MEDS: Potassium Chloride ER 20 MEQ TAB.ER.PRT PO (20:59)
[2022-11-12] MEDS: Zolpidem Tartrate 5 MG TABLET PO (23:21)
[2022-11-12] MEDS: LORazepam 0.5 MG TABLET PO (23:21)
[2022-11-13] VITALS (9 sets, daily range): BP systolic 105–134; BP diastolic 52–63; PULSE 73–91; RESP 16–20; TEMP 36.4–37.1; O2SAT 92–94
[2022-11-13] MEDS: cefEPime HCl 2 GM in 0.9 % Sodium Chloride 50 ML IV ×2 (01:15→12:39)
[2022-11-13] MEDS: Omeprazole 20 MG CAPSULE.DR PO ×2 (05:42→16:37)
[2022-11-13] MEDS: Acetaminophen 325 MG TABLET 650 MG PO ×2 (06:43→16:37)
[2022-11-13] MEDS: Albuterol/Iprat 2.5/0.5MG 3 ML AMPUL.NEB INHALE ×3 (07:26→20:20)
[2022-11-13] MEDS: Magnesium Oxide 400 MG TABLET PO (08:30)
[2022-11-13] MEDS: hydroCHLOROthiazide 25 MG TABLET PO (08:30)
[2022-11-13] MEDS: Potassium Chloride ER 10 MEQ TABLET.ER PO (08:31)
[2022-11-13] MEDS: guaiFENesin LA 600 MG TAB.ER.12H PO ×2 (08:31→21:20)
[2022-11-13] MEDS: 0.9 % Sodium Chloride Flush 3 ML SYRINGE IVFLUSH ×3 (08:34→21:21)
[2022-11-13] MEDS: Sotalol HCL 80 MG TABLET PO ×2 (08:39→21:20)
[2022-11-13] MEDS: predniSONE 10 MG TABLET PO (09:20)
--- NOTE | 2022-11-13 12:18 | P.PNIM_ITS ---
Subjective Subjective Date of Service: 11/13/22 Interval History: coughing up sputum dyspneic generalized weakness nausea Review of Systems Review of Systems: Yes all other systems are reviewed and are negative Physical Exam Vital Signs: Vital Signs: Last Vital Signs Temp 97.6 F 11/13/22 07:56 Pulse 82 11/13/22 07:56 Resp 18 11/13/22 07:56 BP 105/52 L 11/13/22 07:56 Pulse Ox 93 11/13/22 07:56 O2 Del Method Nasal Cannula 11/13/22 07:56 O2 Flow Rate 2 11/13/22 07:56 Oxygen Flow Rate 4 11/11/22 14:50 BMI result Body Mass Index 23.2 Gen: in no acute distress HEENT: sclera anicteric, moist mucus membranes Neck: supple Lungs: scattered inspiratory rhonchi and expiratory wheezing Heart: regular rate and rhythm, no murmurs Abd: soft, non-tender, non-distended Ext: no edema Skin: warm/well-perfused Neuro: alert and oriented x3, no focal findings Psych: appropriate affect Objective Data Active Medications Acetaminophen (Acetaminophen 325 Mg Tablet) 650 mg PO Q6H PRN PRN Reason: Pain, Mild (Pain Scale 1-3) Last Admin: 11/13/22 06:43 Dose: 650 mg Documented By: VASQUEZ Albuterol/Ipratropium (Albuterol/Iprat 2.5/0.5mg 3 Ml Ampul.Neb) 3 ml INHALE RTID [facility] Last Admin: 11/13/22 07:26 Dose: 3 ml Documented By: AMISH Albuterol/Ipratropium (Albuterol/Iprat 2.5/0.5mg 3 Ml Ampul.Neb) 3 ml INHALE Q4H PRN PRN Reason: Wheezing Apixaban (Apixaban 5 Mg Tablet) 5 mg PO BID [facility] Last Admin: 11/13/22 08:40 Dose: Not Given Documented By: ANJANA Non-Admin Reason: Patient Refused Atorvastatin Calcium (Atorvastatin Calcium 20 Mg Tablet) 20 mg PO BEDTIME [facility] Last Admin: 11/12/22 20:58 Dose: 20 mg Documented By: GENO Calcium Carbonate (Calcium Carbonate 500 Mg Tablet) 500 mg PO DAILY [facility] Last Admin: 11/13/22 08:32 Dose: 500 mg Documented By: ANJANA Fluticasone/Vilanterol (Fluticasone/Vilanterol 200/25 Blst.W.Dev) 1 puff INHALE RDAILY [facility] Last Admin: 11/13/22 07:30 Dose: Not Given Documented By: AMISH Non-Admin Reason: med unavail pharm called Guaifenesin (Guaifenesin La 600 Mg Tab.Er.12h) 600 mg PO BID [facility] Last Admin: 11/13/22 08:31 Dose: 600 mg Documented By: ANJANA Hydrochlorothiazide (Hydrochlorothiazide 25 Mg Tablet) 25 mg PO DAILY [facility]; Protocol Last Admin: 11/13/22 08:30 Dose: 25 mg Documented By: ANJANA Cefepime HCl 2 gm/ Sodium (Chloride) 50 mls @ 100 mls/hr IV Q12H [facility] Last Infusion: 11/13/22 02:42 Dose: 0 mls/hr Documented By: ANGLE Lorazepam (Lorazepam 0.5 Mg Tablet) 0.5 mg PO BEDTIME PRN PRN Reason: Sleep Last Admin: 11/12/22 23:21 Dose: 0.5 mg Documented By: ANGLE Magnesium Oxide (Magnesium Oxide 400 Mg Tablet) 400 mg PO DAILY [facility] Last Admin: 11/13/22 08:30 Dose: 400 mg Documented By: ANJANA Omeprazole (Omeprazole 20 Mg Capsule.Dr) 20 mg PO BID@0630,1630 [facility] Last Admin: 11/13/22 05:42 Dose: 20 mg Documented By: ANGLE Ondansetron HCl (Ondansetron Odt 4 Mg Tab.Rapdis) 4 mg TRANSLINGU Q6H PRN PRN Reason: nausea/vomiting Pharmacy Consult (Consult Rx Perform Med Rec) 1 each MISCELLANE ONCE PRN PRN Reason: Consult order Potassium Chloride (Potassium Chloride Er 10 Meq Tablet.Er) 10 meq PO DAILY [facility] Last Admin: 11/13/22 08:31 Dose: 10 meq Documented By: ANJANA Potassium Chloride (Potassium Chloride Er 20 Meq Tab.Er.Prt) 20 meq PO BEDTIME [facility] Last Admin: 11/12/22 20:59 Dose: 20 meq Documented By: HO.WRIGHTS Prednisone (Prednisone 10 Mg Tablet) 10 mg PO Q2D [facility] Last Admin: 11/13/22 09:20 Dose: 10 mg Documented By: ANJANA Sodium Chloride (0.9 % Sodium Chloride Flush 3 Ml Syringe) 3 ml IVFLUSH QSHIFT [facility] Last Admin: 11/13/22 08:34 Dose: 3 ml Documented By: ANJANA Sotalol HCl (Sotalol Hcl 80 Mg Tablet) 80 mg PO BID [facility] Last Admin: 11/13/22 08:39 Dose: 80 mg Documented By: ANJANA Tiotropium [place] (Tiotropium [place] 18 Mcg Cap.W.Dev) 1 puff INHALE RDAILY [facility] Last Admin: 11/13/22 07:30 Dose: Not Given Documented By: AMISH Non-Admin Reason: Med Not Available Zolpidem Tartrate (Zolpidem Tartrate 5 Mg Tablet) 5 mg PO BEDTIME PRN PRN Reason: Sleep Last Admin: 11/12/22 23:21 Dose: 5 mg Documented By: ANGLE Labs 11/12/22 06:23 11/12/22 06:23 Labs: Laboratory Results - last 24 hr 11/11/22 11/11/22 11/11/22 12:55 12:55 12:56 MCV 94.3 MCH 32.2 MCHC 34.1 RDW 13.6 Plt Count 393 MPV 8.6 L Immature Gran % (Auto) 1.6 H Neut % (Auto) 74.9 H Lymph % (Auto) 16.5 L [place] % (Auto) 6.7 Eos % (Auto) 0.1 Baso % (Auto) 0.2 Lymph # (Auto) 1.5 [place] # (Auto) 0.6 Eos # (Auto) 0.0 Baso # (Auto) 0.0 Abs Immat Gran (auto) 0.15 H Absolute Neuts (auto) 6.9 Absolute Nucleated RBC 0.000 Nucleated RBC % (auto) 0.0 Smear Tech's Comments PT INR APTT Anion Gap 17 Estim Creat Clear Calc 59.0 Estimated GFR > 60 Random Glucose 130 H Lactic Acid 0.9 Calcium 10.3 H Total Bilirubin 0.4 AST 17 ALT 18 Alkaline Phosphatase 64 Total Protein 7.7 Albumin 4.1 Procalcitonin 11/11/22 11/11/2211/12/23 12:56 13:06 06:23 MCV 95.2 MCH 31.7 MCHC 33.3 RDW 13.5 Plt Count 351 MPV 8.7 L Immature Gran % (Auto) 1.5 H Neut % (Auto) 55.8 Lymph % (Auto) 24.3 [place] % (Auto) 17.3 H Eos % (Auto) 0.6 Baso % (Auto) 0.5 Lymph # (Auto) 2.4 [place] # (Auto) 1.7 H Eos # (Auto) 0.1 Baso # (Auto) 0.1 Abs Immat Gran (auto) 0.15 H Absolute Neuts (auto) 5.6 Absolute Nucleated RBC 0.000 Nucleated RBC % (auto) 0.0 Smear Tech's Comments VERIFIED PT 13.7 H INR 1.2 H APTT 41.3 H Anion Gap Estim Creat Clear Calc Estimated GFR Random Glucose Lactic Acid Calcium Total Bilirubin AST ALT Alkaline Phosphatase Total Protein Albumin Procalcitonin 0.11 11/12/22 06:23 MCV MCH MCHC RDW Plt Count MPV Immature Gran % (Auto) Neut % (Auto) Lymph % (Auto) [place] % (Auto) Eos % (Auto) Baso % (Auto) Lymph # (Auto) [place] # (Auto) Eos # (Auto) Baso # (Auto) Abs Immat Gran (auto) Absolute Neuts (auto) Absolute Nucleated RBC Nucleated RBC % (auto) Smear Tech's Comments PT INR APTT Anion Gap 13 Estim Creat Clear Calc 62.6 Estimated GFR > 60 Random Glucose 109 Lactic Acid Calcium 9.1 D Total Bilirubin AST ALT Alkaline Phosphatase Total Protein Albumin Procalcitonin Microbiology Microbiology Results: Microbiology 11/11/22 13:06 Blood Culture - Preliminary Blood - Venous No growth after 24 hours. 11/11/22 12:55 Blood Culture - Preliminary Blood - Venous No growth after 24 hours. 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 She follows closely with Dr. Dominick Brown and has had multiple drug- resistant cultures including Stenotrophomonas on bronchoscopy.? She is presenting with a positive sputum culture of Pseudomonas and was admitted for IV antibiotics # Exacerbation of bronchiectasis due to infection by Pseudomonas aeruginosa - cefepime 2g q12h, started 11/11/22, total 3 wk, midline ordered - Pulm consulted # COPD - continue nebs, home dose of prednisone 10 mg every other day, Breo, tiotropium # Chronic hypoxic resp failure - continue home O2 2L at rest, 3L with activity # Paroxysmal AF - continue sotalol, apixaban # HTN - continue HCTZ # GERD - continue PPI # VTE ppx - apixaban # dispo - eventual home with VNA In my clinical judgment, the patient requires continued inpatient hospitalization for the following reasons: IV ABX, Pulm consultation Time Spent With Patient Time: Total time managing care of this patient today __35__ minutes. Quality Stroke Does the patient have a stroke diagnosis?: No VTE Prior VTE?: No VTE Risk Level:: Medical - moderate - high VTE Device Contraindication: Treatment Not Indicated VTE Drug Contraindication: N/A - Med Ordered
--- NOTE | 2022-11-13 13:09 | MHC.CM.PN ---
pper rounds pt to get a midline will go home with [facility] and [facility]
[2022-11-13] MEDS: Ondansetron ODT 4 MG TAB.RAPDIS TRANSLINGU (13:11)
[2022-11-13] MEDS: Apixaban 5 MG TABLET PO (21:20)
[2022-11-13] MEDS: Potassium Chloride ER 20 MEQ TAB.ER.PRT PO (21:20)
[2022-11-13] MEDS: Atorvastatin Calcium 20 MG TABLET PO (21:20)
[2022-11-13] MEDS: LORazepam 0.5 MG TABLET PO (23:05)
[2022-11-13] MEDS: Zolpidem Tartrate 5 MG TABLET PO (23:05)
[2022-11-14] VITALS (7 sets, daily range): BP systolic 118–156; BP diastolic 56–67; PULSE 68–87; RESP 17–20; TEMP 36.3–36.7; O2SAT 84–95
[2022-11-14] MEDS: cefEPime HCl 2 GM in 0.9 % Sodium Chloride 50 ML IV ×2 (01:36→13:13)
[2022-11-14] MEDS: Omeprazole 20 MG CAPSULE.DR PO (05:58)
[2022-11-14] MEDS: Acetaminophen 325 MG TABLET 650 MG PO (05:58)
--- NOTE | 2022-11-14 06:36 | PC.RT ---
Pantera and Fareed still not on patients specific bin this am. Pharmacy called and spoke to Godfrey and will get the Meds up to S3 LILY.
[2022-11-14] MEDS: Potassium Chloride ER 10 MEQ TABLET.ER PO (07:54)
[2022-11-14] MEDS: Magnesium Oxide 400 MG TABLET PO (07:54)
[2022-11-14] MEDS: guaiFENesin LA 600 MG TAB.ER.12H PO (07:55)
[2022-11-14] MEDS: hydroCHLOROthiazide 25 MG TABLET PO (07:55)
[2022-11-14] MEDS: Sotalol HCL 80 MG TABLET PO (07:55)
[2022-11-14] MEDS: 0.9 % Sodium Chloride Flush 3 ML SYRINGE IVFLUSH (07:55)
[2022-11-14] MEDS: Apixaban 5 MG TABLET PO (07:59)
[2022-11-14] MEDS: Fluticasone/Vilanterol 200/25 BLST.W.DEV 1 PUFF INHALE (08:35)
[2022-11-14] MEDS: Albuterol/Iprat 2.5/0.5MG 3 ML AMPUL.NEB INHALE (08:35)
--- NOTE | 2022-11-14 10:23 | HO.MIDLINE_ITS ---
Midline Insertion MIDLINE INSERTION Diagnosis: [+SPUTUM PSEUDOMONAS] Indication: [3 weeks of antibx] Pertinent Labs: [Reviewed] Technique: Using sterile technique including cap and mask, glove and drape, the [RIGHT] arm was prepped and draped in the usual sterile fashion of full barrier technique with CHG. Using ultrasound guidance, [RIGHT BASILIC] vein access was obtained [ON 2ND ATTEMPT BY JADA OATES RN]. [[id number] ST MIDLINE NON-PASV] was positioned. The procedure was performed in [RM 272]. Ultrasound was used to document vein patency and for needle entry. A formal ultrasound picture was recorded. [employer] has released the line for use and it is currently dressed with a StatLock, Tegaderm, and CHG disc. Verification has been performed for blood return and line patency. Arm Circumference: [26CM] Equipment: [[employer] POWERGLIDE MIDLINE] Catheter Type: [[id number] ST MIDLINE NON-PASV] Lot #: [[id number]]
--- NOTE | 2022-11-14 11:36 | W.MHC.F2F ---
Service Date Service Date: 11/14/22 Encounter Date of encounter: 11/14/22 Reasons for Services Signs and symptoms assessed: Exacerbation of bronchiectasis due to infection by Pseudomonas aeruginosa Reason for retirement: administration of IV, SQ, or IM injection and central line care Overseeing Care: Daniel Yoon III Homebound: Leaving the home is medically contraindicated at this time without the asist of a device and/or another person due th the listed conditions above and below. Reason homebound: immunosuppression / infection risk Certification: Based on the above findings, I certify that this patient is confined to the home and needs intermittent retirement care, physical therapy and/or speech therapy, or continues to need occupational therapy. The patient is under my care, and I have initiated the establishment of the plan of care. The patient will be followed by a physician who will periodically review the plan of care. Time Spent With Patient Time: Total time managing care of this patient today ____ minutes.
--- NOTE | 2022-11-14 11:37 | P.DS_ITS ---
DS: Providers Provider Date of Service: 11/14/22 Date of admission: 11/11/22 15:05 Date of discharge: 11/14/22 Primary care physician: Daniel Yoon III, MD Consults: 11/11/22 15:05 Consult to Pulmonology Routine [place]ing [place] [facility] [place] Reason for consultation: Bronchiectases DS: Diagnosis Discharge Diagnosis (1) Pseudomonas respiratory infection: Status: Acute (2) Exacerbation of bronchiectasis due to infection: Status: Acute (3) COPD (chronic obstructive pulmonary disease): Status: Acute (4) Chronic respiratory failure with hypoxia: Status: Acute DS: Summary Hospital Course Hospital Course: from admission H+P by hospitalist NAHID Brown, 11/11/22: 82 year old women with a history of aspergillus and pseudomonas aeruginosa presents to the ED with increased sob over the last week. She has followed closely with Dr. 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 She also has a hx of bronch with stenotrophomonas.? She was seen by her retail shift supervisor on 11/06/2022 and at that time had felt unwell with chest congestion and green sputum with nausea.? At that time she was treated with Vantin and doxycycline along with a prednisone taper and sputum culture was ordered.? Subsequently her sputum culture was positive again for Pseudomonas aeruginosa.? She was told by her retail shift supervisor to come to the hospital to be treated with IV antibiotics.? Patient denies any chest pain, recent travel, sick contacts, nausea, vomiting, diarrhea.? She is compliant with her medications at home including oxygen therapy.? In the ER, her labs noted to be within acceptable limits, vital signs stable.? She was started on cefepime 2 mg every 12 hours.? 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 She follows closely with Dr. Dominick Brown and has had multiple drug- resistant cultures including Stenotrophomonas on bronchoscopy.? She is presenting after a positive sputum culture of quinolone-resistant Pseudomonas aeruginosa and was admitted for IV antibiotics She was admitted to the medical-surgical floor and her retail shift supervisor was conuslted. She was placed on cefepime 2g q12h starting 11/11/22 and ending 12/01/22; midline catheter was placed 11/14/22. Her COPD meds were continued (prednisone 10 mg qod, Breo, tiotropium) along with home oxygen (2L at rest, 3L with activity). She was discharged home with VNA services for administration of the cefepime and will follow-up with her retail shift supervisor. Time Spent with Patient Time attestation: Total time managing care of this patient today __35__ minutes. Discharge coordination time: Greater than 30 minutes Quality: Safe Use of Opioids Does Pt have an Active Cancer Diagnosis on the Problem List?: No Quality: Stroke Does the patient have a stroke diagnosis?: No Physical Exam Vital Signs: Vital Signs: Last Vital Signs Temp 97.3 F 11/14/22 08:00 Pulse 79 11/14/22 08:55 Resp 20 11/14/22 08:55 BP 118/56 L 11/14/22 08:00 Pulse Ox 94 11/14/22 08:00 O2 Del Method Nasal Cannula 11/14/22 08:00 O2 Flow Rate 2 11/14/22 08:00 Oxygen Flow Rate 4 11/11/22 14:50 BMI result Body Mass Index 23.2 Gen: in no acute distress HEENT: sclera anicteric, moist mucus membranes Neck: supple Lungs: diminished bilaterally Heart: regular rate and rhythm, no murmurs Abd: soft, non-tender, non-distended Ext: no edema, RUE midline without signs of infection Skin: warm/well-perfused Neuro: alert and oriented x3, no focal findings Psych: appropriate affect DS: Data Data Completed and Pending Completed studies during hospitalization [Text1]: Laboratory Results WBC 10.0 X10*3/uL (4.8-10.8) 11/12/22 06: RBC 4.13 X10*6/uL (4.20-5.50) L 11/12/22 06: Hgb 13.1 g/dl (12.0-16.0) 11/12/22 06:23 Hct 39.3 % (37.0-47.0) 11/12/22 06:23 MCV 95.2 fL (80.0-98.0) 11/12/22 06:23 MCH 31.7 pg (27.0-33.0) 11/12/22 06: MCHC 33.3 g/dl (31.0-35.0) 11/12/22 06: RDW 13.5 % (11.0-16.0) 11/12/22 06: Plt Count 351 X10*3/uL (160-400) 11/12/22 06: MPV 8.7 fL (9.4-12.3) L 11/12/22 06: Immature Gran % (Auto) 1.5 % (0.0-0.4) H 11/12/22 06: Neut % (Auto) 55.8 % (45-73) 11/12/22 06: Lymph % (Auto) 24.3 % (20-40) 11/12/22 06: [place] % (Auto) 17.3 % (2-11) H 11/12/22 06: Eos % (Auto) 0.6 % (0-4) 11/12/22 06: Baso % (Auto) 0.5 % (0-2) 11/12/22 06:23 Lymph # (Auto) 2.4 X10*3/uL (1.2-4.9) 11/12/22 06:23 [place] # (Auto) 1.7 X10*3/uL (0.1-1.2) H 11/12/22 06:23 Eos # (Auto) 0.1 X10*3/uL (0.0-0.4) 11/12/22 06:23 Baso # (Auto) 0.1 X10*3/uL (0.0-0.2) 11/12/22 06:23 Abs Immat Gran (auto) 0.15 X10*3/uL (0.00-0.03) H 11/12/22 06:23 Absolute Neuts (auto) 5.6 x10*3/uL (2.0-8.3) 11/12/22 06: Absolute Nucleated RBC 0.000 X10*3/uL (0.0-0.012) 11/12/22 06: Nucleated RBC % (auto) 0.0 /100WBC (0.0-0.2) 11/12/22 06:23 Smear Tech's Comments VERIFIED 11/12/22 06:23 PT 13.7 SEC (10.0-13.1) H 11/11/22 12:56 INR 1.2 (0.9-1.1) H 11/11/22 12:56 APTT 41.3 SEC (26.0-36.4) H 11/11/22 12:56 Sodium 138 mmol/L (135-145) 11/12/22 06:23 Potassium 3.9 mmol/L (3.3-5.1) 11/12/22 06:23 Chloride 102 mmol/L (96-108) 11/12/22 06:23 Carbon Dioxide 27 mmol/L (22-29) 11/12/22 06:23 Anion Gap 13 (12-20) 11/12/22 06:23 BUN 17 mg/dL (9-16) H 11/12/22 06:23 Creatinine 0.66 mg/dL (0.5-1.4) 11/12/22 06:23 Estim Creat Clear Calc 62.6 11/12/22 06:23 Estimated GFR > 60 11/12/22 06:23 Random Glucose 109 mg/dL (60-115) 11/12/22 06:23 Lactic Acid 0.9 mmol/L (0.5-2.0) 11/11/22 12:55 Calcium 9.1 mg/dL (8.4-10.2) D 11/12/22 06:23 Total Bilirubin 0.4 mg/dL (0.0-1.0) 11/11/22 12:55 AST 17 U/L (5-31) 11/11/22 12:55 ALT 18 U/L (0-31) 11/11/22 12:55 Alkaline Phosphatase 64 U/L (39-117) 11/11/22 12:55 Total Protein 7.7 g/dL (6.5-8.0) 11/11/22 12:55 Albumin 4.1 g/dL (3.5-5.0) 11/11/22 12:55 Procalcitonin 0.11 ng/mL 11/11/22 13:06 Impressions Chest X-Ray 11/11/22 13:23 IMPRESSION: 1. Bronchial wall thickening may be infectious and/or inflammatory in etiology. 2. Linear atelectasis at the bilateral bases. Labs on day of discharge: Preliminary micro results at discharge 11/11/22 13:06 Blood Culture - Preliminary Blood - Venous No growth after 48 hours. 11/11/22 12:55 Blood Culture - Preliminary Blood - Venous No growth after 48 hours. Discharge Plan Discharge Anticipated Discharge Date/Time: 11/14/22 11:23 Patient Disposition: Home Health Service Discharge Diagnosis: Exacerbation of bronchiectasis due to infection by Pseudomonas aeruginosa Referrals: Daniel Yoon III, MD [Primary Care Provider] - 1 Week Dominick Brown MD [Physician] - 1 Week Discharge Medications: New cefepime 2 gram Recon Soln 2 g IV Q12H Qty: 36 0RF Continued budesonide 0.5 mg/2 mL suspension for nebulization 0.5 mg inhalation BID Qty: 60 11RF sodium chloride 7 % solution for nebulization 4 ml inhalation BID Qty: 240 11RF albuterol sulfate 90 mcg/actuation HFA aerosol inhaler 2 puff PO Q6H PRN (Reason: for wheezing) Qty: 34 3RF Trelegy Ellipta 200-62.5-25 mcg blister with device 1 ea inhalation DAILY potassium chloride 20 mEq tablet,ER particles/crystals 10 meq PO DAILY Culturelle 10 billion cell Capsule 1 cap PO DAILY magnesium oxide 400 mg magnesium Tablet 400 mg PO DAILY ipratropium-albuterol 0.5 mg-3 mg(2.5 mg base)/3 mL solution for nebulization 3 ml inhalation TID prednisone 10 mg tablet 10 mg PO Q2D fluticasone propion-salmeterol [Wixela Inhub] 500-50 mcg/dose blister with device 1 ea inhalation BID Spiriva with HandiHaler 18 mcg capsule, w/inhalation device 1 cap inhalation DAILY hydrochlorothiazide 25 mg tablet 25 mg PO DAILY sotalol 80 mg tablet 80 mg PO BID Eliquis 5 mg tablet 5 mg PO BID omeprazole 20 mg capsule,delayed release(DR/EC) 20 mg PO BID vit C,E,Zn,[id number] 250-2.5-0.5 mg capsule 1 cap PO BID calcium carbonate [Calcium 600] 600 mg calcium (1,500 mg) tablet 600 mg PO DAILY glucosamine-chondroitin 900 mg tablet 1,200 mg PO BID zolpidem [Ambien] 5 mg tablet 5 mg PO BEDTIME PRN (Reason: Sleep) lorazepam 0.5 mg tablet 0.5 mg PO BEDTIME PRN (Reason: Sleep) coenzyme Q10 400 mg capsule 400 mg PO DAILY guaifenesin [Mucinex] 600 mg tablet extended release 12hr 600 mg PO BID potassium chloride 20 mEq tablet,ER particles/crystals 20 meq PO BEDTIME atorvastatin 20 mg tablet 20 mg PO BEDTIME alendronate 70 mg tablet 70 mg PO CLEMENTS (DME) nebulizers Misc See Rx Instructions .ROUTE Rx Instructions: As directed (DME) Oxygen Home Use Kit See Rx Instructions .ROUTE Rx Instructions: As directed ondansetron HCl 4 mg tablet 4 mg PO DAILY PRN (Reason: nausea and vomiting) Qty: 5 0RF Discharge Orders: Discharge Order (Routine); Ordered 11/14/22 Ordered By: Tony Ward Diet: Advance to usual diet Activity on Discharge: As tolerated Stand Alone Forms: Patient Portal Discharge page Care Plan Goals: respiratory health Health Concerns: Exacerbation of bronchiectasis due to infection by Pseudomonas aeruginosa Plan of Treatment: cefepime 1 gram IV every 12 hours, end date 12/01/22; weekly BMP + CBCd while on therapy follow up with Dr Brown from Pulmonology within 1 week Please follow up with your primary care doctor within 1 week. Return to the hospital if you experience recurrent or worsening symptoms. Assessment: See Discharge Summary.
--- NOTE | 2022-11-14 11:55 | MHC.CM.PN ---
DP: PT HAS BEEN MEDICALLY CLEARED FOR DC HOME WITH NEW [facility] AND [facility] FOR MANAGEMENT OF HOME IV. [facility] WILL DELIVER SUPPLIES THIS ELIANA AND LIAISON WAS IN TO DO A TEACH/APPLY CONTINUOUS TOWEL ROLLER FOR MIDLINE. [facility] NOTIFIED AND WILL BE IN TO SEE PT AT HOME TOMORROW AM. RN AWARE. PT WILL DRIVE SELF HOME.
--- NOTE | 2022-11-14 13:01 | PM.PNPUL ---
Subjective Subjective Date of Service: 11/14/22 Interval history: The patient was seen on exam. She is feeling better. She finally got her midline. She is going to continue with the cefepime for hopefully 3 weeks. She is also on the prednisone taper. She will be set up with VNA services. Her lung some better with less congestion. Imaging isaac she feels better. She had multiple complaints while in the hospital. She is currently a DNR. In addition to that she complained about some of the respiratory therapy and also complained about the issue with the Eliquis. I recommend that she hold the Eliquis, but, but apparently for the procedure was not required. I do believe that it is safer for her to be off the Eliquis in the 1st place. At this point she is back on the Eliquis she is doing well. Objective Data Labs 11/12/22 06:23 11/12/22 06:23 Microbiology Microbiology Results: Microbiology 11/11/22 13:06 Blood - Venous Blood Culture - Preliminary No growth after 48 hours. 11/11/22 12:55 Blood - Venous Blood Culture - Preliminary No growth after 48 hours. Review of Systems Review of Systems Denies any recent fever chills or decrease in appetite respiratory +productive cough, +SOB cardiovascular no chest pain gastrointestinal denies any dysphagia abdominal pain nausea vomiting or diarrhea genitourinary denies any dysuria frequency or hematuria musculoskeletal denies any joint pain or swelling neuropsych denies any weakness or seizures all other systems reviewed are negative Physical Exam Vital Signs: Vital Signs: Last Vital Signs Temp 98.1 F 11/14/22 12:00 Pulse 87 11/14/22 12:00 Resp 19 11/14/22 12:00 BP 126/61 11/14/22 12:00 Pulse Ox 95 11/14/22 12:00 O2 Del Method Nasal Cannula 11/14/22 12:00 O2 Flow Rate 2 11/14/22 08:00 Oxygen Flow Rate 4 11/11/22 14:50 BMI result Body Mass Index 23.2 Const: General: alert Neck: Neck: Yes normal visual inspection, Yes full ROM and Yes no lymphadenopathy Chest: Chest palpation & inspection: normal inspection of the chest Resp: Auscultation: no crackles and diminished lung sounds Cardio: Rate: regular rate Rhythm: regular rhythm Heart sounds: S1 normal heart sound present and S2 normal heart sound present GI: Palpation (GI): Soft to palpation and Tenderness to palpation present (GI) in the LLQ Auscultation: normal bowel sounds Skin: General skin exam: rashes and/or lesions noted Procedures Date of Service Date of Service: 11/14/22 Assessment and Plan Assessment and plan (1) Chronic respiratory failure with hypoxia: Status: Acute (2) Pseudomonas respiratory infection: Status: Acute (3) Exacerbation of bronchiectasis due to infection: Status: Acute (4) Positive sputum culture for Pseudomonas: Status: Acute Plan Complete 3 weeks of the cefepime antibiotic Continue anticoagulation Prednisone taper Continue with nebulized therapy as prescribed that home CPT with flutter valve and also percussion vest The patient already has an appointment sometime mid November. Will have her keep that appointment since availability is limited. Time Spent With Patient Time: Total time managing care of this patient today ____ minutes. Progress Note: Quality Stroke Does the patient have a stroke diagnosis?: No
== END 2022-11-14 14:17 | disposition home health service (06) | DRG 191 ==
LOC: HO.ED 14:21 → HO.EDOVER 15:13 → HO.IMC 15:53 → HO.S3 11-12 22:52
PROVIDERS: Physician Assistant; Admitting Provider Nurse Practitioner Acute Care; Emergency Provider Emergency Medicine; PCP Internal Medicine; Visit Provider Family Medicine
DX: J47.1 Bronchiectasis with (acute) exacerbation (principal); J96.11 Chronic respiratory failure with hypoxia; A31.0 Pulmonary mycobacterial infection; I48.0 Paroxysmal atrial fibrillation; I10 Essential (primary) hypertension; K21.9 Gastro-esophageal reflux disease without esophagitis; B96.5 Pseudomonas (aeruginosa) (mallei) (pseudomallei) as the cause of diseases classified elsewhere; F41.9 Anxiety disorder, unspecified; Z99.81 Dependence on supplemental oxygen; Z79.01 Long term (current) use of anticoagulants; Z79.52 Long term (current) use of systemic steroids; Z79.899 Other long term (current) drug therapy
CPT/HCPCS: 36410; 36415; 71045; 80048; 80053; 83605; 84145; 85025; 85610; 85730; 87040; 94640; 99285; J0692; J2405

== ENCOUNTER 2022-11-20 13:35 | Outpatient (REF) | payer MEDICARE, SELFPAY ==
[2022-11-20 13:37] LABS: MANUAL DIFF FLAG NO
[2022-11-20 13:57] LABS: Basophils Absolute Auto 0.1 X10*3/uL (0.0-0.2); Basophils Percent Auto 0.6 % (0-2); Eosinophils Absolute Auto 0.1 X10*3/uL (0.0-0.4); Hematocrit 40.1 % (37.0-47.0); Hemoglobin 13.2 g/dl (12.0-16.0); Imm Gran Abs Auto 0.21 X10*3/uL (0.00-0.03); Lymphocytes Absolute Auto 2.4 X10*3/uL (1.2-4.9); Lymphocytes Percent Auto 22.6 % (20-40); Mean Corpuscular HGB Conc 32.9 g/dl (31.0-35.0); Mean Corpuscular Volume 97.1 fL (80.0-98.0); Mean Platelet Volume 8.9 fL (9.4-12.3); Monocytes Absolute Auto 1.2 X10*3/uL (0.1-1.2); Monocytes Percent Auto 11.3 % (2-11); Neutrophils Absolute Auto 6.7 x10*3/uL (2.0-8.3); Neutrophils Percent Auto 62.5 % (45-73); Platelet Count 482 X10*3/uL (160-400); Red Blood Count 4.13 X10*6/uL (4.20-5.50); Red Cell Distribution Width 13.5 % (11.0-16.0); White Blood Count 10.6 X10*3/uL (4.8-10.8)
[2022-11-20 15:39] LABS: Anion Gap 15 (12-20); Blood Urea Nitrogen 16 mg/dL (9-16); Calcium 9.8 mg/dL (8.4-10.2); Carbon Dioxide 28 mmol/L (22-29); Chloride 99 mmol/L (96-108); Estimated Glomerular Filt Rate > 60; Glucose Random 82 mg/dL (60-115); Potassium 4.4 mmol/L (3.3-5.1); Sodium 138 mmol/L (135-145)
== END 2022-11-20 13:36 | disposition home or self-care (01) ==
LOC: HO.HVNA 13:35
PROVIDERS: Visit Provider Internal Medicine
DX: J18.9 Pneumonia, unspecified organism (principal)
CPT/HCPCS: 36415; 80048; 85025

== ENCOUNTER 2022-11-27 13:34 | Outpatient (REF) | payer MEDICARE, SELFPAY ==
[2022-11-27 13:42] LABS: MANUAL DIFF FLAG NO
[2022-11-27 14:01] LABS: Basophils Absolute Auto 0.1 X10*3/uL (0.0-0.2); Basophils Percent Auto 0.6 % (0-2); Eosinophils Absolute Auto 0.1 X10*3/uL (0.0-0.4); Eosinophils Percent Auto 0.7 % (0-4); Hematocrit 39.4 % (37.0-47.0); Hemoglobin 12.9 g/dl (12.0-16.0); Imm Gran Abs Auto 0.12 X10*3/uL (0.00-0.03); Imm Gran Pct Auto 1.1 % (0.0-0.4); Lymphocytes Absolute Auto 2.1 X10*3/uL (1.2-4.9); Lymphocytes Percent Auto 19.2 % (20-40); Mean Corpuscular HGB Conc 32.7 g/dl (31.0-35.0); Mean Corpuscular Hemoglobin 31.5 pg (27.0-33.0); Mean Corpuscular Volume 96.3 fL (80.0-98.0); Mean Platelet Volume 9.5 fL (9.4-12.3); Monocytes Absolute Auto 1.5 X10*3/uL (0.1-1.2); Monocytes Percent Auto 13.3 % (2-11); Neutrophils Absolute Auto 7.2 x10*3/uL (2.0-8.3); Neutrophils Percent Auto 65.1 % (45-73); Platelet Count 468 X10*3/uL (160-400); Red Blood Count 4.09 X10*6/uL (4.20-5.50); Red Cell Distribution Width 13.7 % (11.0-16.0)
[2022-11-27 15:29] LABS: Anion Gap 14 (12-20); Blood Urea Nitrogen 18 mg/dL (9-16); Calcium 9.4 mg/dL (8.4-10.2); Carbon Dioxide 29 mmol/L (22-29); Chloride 99 mmol/L (96-108); Estimated Glomerular Filt Rate > 60; Glucose Random 77 mg/dL (60-115); Potassium 4.2 mmol/L (3.3-5.1); Sodium 138 mmol/L (135-145)
== END 2022-11-27 13:35 | disposition home or self-care (01) ==
LOC: HO.HVNA 13:34
PROVIDERS: Visit Provider Internal Medicine
DX: J18.9 Pneumonia, unspecified organism (principal)
CPT/HCPCS: 36415; 80048; 85025

== ENCOUNTER → 2022-11-28 10:52 | Outpatient (BNVA) | payer MEDICARE, SELFPAY | PROVIDERS: PCP Internal Medicine; Visit Provider Hospitalist | DX: J47.9 Bronchiectasis, uncomplicated (principal); A31.0 Pulmonary mycobacterial infection; R91.8 Other nonspecific abnormal finding of lung field; J18.9 Pneumonia, unspecified organism; J98.8 Other specified respiratory disorders; B96.5 Pseudomonas (aeruginosa) (mallei) (pseudomallei) as the cause of diseases classified elsewhere | CPT/HCPCS: 99212 ==

== ENCOUNTER 2023-01-22 09:53 | Outpatient (AMB) | payer MEDICARE, SELFPAY ==
--- NOTE | 2023-01-22 10:10 | A.OFFVIS_ITS ---
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 She has had bronchoscopies in the past with positive stenotrophomonas. She also has a cardiac condition including AFib a flutter. She had a prolonged hospitalization the summer was very sick. She started to feel better. She completed a Holter monitor. She is still having issues with reflux. She is maintaining a diet and taking medications to minimize the acid. The patient did have a CT scan of the chest March 16, 2019 that we personally. The pulmonary nodules appear to be stable. She does have some evidence of airspace disease in the bases bring up the question of micro aspirations into the lungs. This appears to be a little bit worse on the left side in the right with compared to previous. Therefore, we talked about the importance of micro aspirations and minimizing the apparent we can consider promotility agents including Reglan, azithromycin and temporary done. However, domperidone and azithromycin do cause QT prolongation with the dangers with her sotalol. Right now Reglan is an option but will hold off at this time since she is doing well. We did review her CT scan of the chest demonstrating interval improvement her pulmonary nodules. She still has bronchiectatic changes and bronchitis looking airways, but, overall better. The right lower lobe has more dense airspace disease but that even looks improved when compared to her previous CAT scan from [facility]. She still waiting to get a portable oxygen concentrator. She has been working with [facility] to get that arranged. 01/21/2020 the patient is here for pulmonary follow-up visit. Since we last spoke she did have an ENT evaluation with laryngoscopy demonstrating changes of the vocal cords. Therefore she had both right and left vocal cord biopsies. The demonstrated granulomatous tissue and acute on chronic inflammation on the left vocal cord. Did also have a small ulcer. No evidence of any dysplasia which is reassuring. She still has hoarseness. She still has reflux issues. She does try to keep a reflux diet and sleeps elevated. However, still having symptoms and likely aggravating her vocal cords from pharyngeal laryngeal penetration. The patient is scheduled to undergo colonoscopy. Based on her ongoing symptoms I also recommend that she undergo an EGD. 07/03/2020 the patient is here for pulmonary follow-up visit. Overall she is doing about the same. Still complaining of difficulty expectorating. She has a chronic cough. She has known bronchiectasis. He has been using her nebulizer 3 times a day. She also has a flutter valve that she needs to start using more regularly. Also has some shortness of breath. She does have oxygen available she does use with activity with good effect. She is still waiting from her [employer] to supply her with a filling station so she can fill her on tanks. We did review her recent CT scan of the chest. The CT scan was personally reviewed by me. Demonstrating stable pulmonary nodules but she does have extensive bronchiectasis in the bases in addition to tree-in-bud in because the mucus plugging. We emphasized importance of chest PT. At this point will add hypertonic saline after her DuoNebs and to be used before the flutter valve. I did provide her with some samples of albuterol in case the ipratropium component strand of her mucous making it difficult to expectorate. 05/31/2021 the patient is here for a pulmonary follow-up visit. The patient has been having worsening cough in addition to shortness of breath. She has been having to use her oxygen more regularly. She is having hard time expectorating. Denies any fevers or chills. She did get tested for COVID-19. she went to an urgent care which she was also diagnosed with a skin infection and she was placed on Bactrim. While back from her respiratory symptoms did improve briefly. But then after 10 days she stop the Bactrim her symptoms started coming back. She does have the history of the stenotrophomonas from her previous sputum cultures. 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 We did review her CT chest from a week ago demonstrated increased opacifications of the bronchiectatic airways at the bases, extensive suggesting significant mucus plugging in addition to evidence of pulmonary nodules. She also has a new 4 mm pulmonary nodule. She has been using her Acapella valve in addition to hypertonic saline and her neb treatments. However, she has a hard time expectorating. At this point she has failed CPT with Acapella valve and she needs to get a percussion vest in order to better facilitate mucus clearance. 07/18/2021 the patient is here for a pulmonary follow-up visit. Overall she is doing okay. She responded well to the Bactrim. Initially on the twice a day Bactrim she was doing very well. When she cut down to once a day she noticed increasing chest congestion. In the meantime she has been using the percussion vest and this has been affecting beneficial. She is able to expectorate very well. She did start getting some abdominal discomfort and she was not sure if it was actually from the percussion. I did recommend she adjust the the frequency and decrease it in the meantime she did go to the ER because of the abdominal discomfort and did have a CT scan of the chest. She had evidence of diverticulosis but no evidence of any active diverticulitis. However based on the examination it was felt that although she did not have any evidence of diverticulitis she may have some early signs and symptoms and fi ndings. Therefore she was placed on Augmentin. She is only taking 1 the of the Augmentin at this time. She needs to be careful because she has had a history of C diff colitis. That was many years ago. She is taking probiotics at this time. In the meantime I did encourage her to stop the Bactrim while she is on the Augmentin. Will also try to collect a sputum culture to see if she has any further evidence of any stenotrophomonas. If she does then will increase the Bactrim to twice a day. If there is no evidence of any active infection that will keep her at the prophylactic dose of 1 today. We did review the blood work that she had drawn. It is reassuring that her IgG levels are within normal limits. She also has normal IgE levels. Her white count was also reassuring. However, her IgM levels were significantly elevated. Explained to her that this may be initially if she was sickly with an active infection these levels may have been appropriately reacting to that. In the meantime though the levels have to be checked to make sure that she does not have a gammopathy issue involving. I will redraw the blood work and she will have it done at [facility] in order for her to review further when she sees her primary care provider. 11/13/2021 the patient is here for hospital follow-up visit. Apparently back in September she became sick with influenza a. She was evaluated in the ER and she was discharged on released. She was given prednisone. Unfortunately her symptoms worsen with significant productive cough. She went back to the hospital where she was diagnosed with pneumonia and started on antibiotics. She was treated and released. Unfortunately again she continued to get worse with more shortness of breath and productive cough. She went back to the hospital. Therefore she was admitted to the hospital due to acute on chronic hypoxic respiratory failure. She was evaluated by Pulmonary as while she was in a hospital. Sputum culture was positive for ESBL E coli. She is on antiarrhythmic agents. Therefore while the EKGs were okay the patient was placed on levofloxacin. after 5 days she did feel better. She is concerned that she did have a long enough course. Still feels some chest congestion tightness and wheezing. She has no longer taking prednisone. in the office we did have her undergo a repeat EKG in her QT interval was within normal limits. Therefore will keep her on a lower dose of levofloxacin of 250 mg for another 14-21 days depending on her symptoms. If the patient develops any tendinitis she is stop the medicine. also to note she had multiple CT scans at [facility] demonstrating intermediate size pulmonary nodules in the upper lung zones. The circumstance of this is not clear that it may be related to the lower respi ratory infection. She will try to request the imaging to review from [facility]. Ultimately the patient will need a repeat CT scan in 6-8 weeks to make sure the interval resolution of the process. If the process still present then additional diagnostic interventions may be warranted. 01/08/2022 The patient is here for a pulmonary follow up visit. The patient had been doing better. She did well on the Levaquin, but then somethings worsening. She went to the ED afterwards and was then placed on Augmentin for ESBR Ecoli pneumonia. She again felt better, but then worsen. She complains of worsening productive cough which is difficult to expectorate. She does respond well to the percussion vest and hypertonic saline. But, less responsive now. She is agreeable to undergo a bronchoscopy to reassess for smoldering infections. She does respond well to prednisone, but is concerned about the adverse effects. She is agreeable to taking a small does of prednisone. She has been using her oxygen with goos effect. 02/13/2022 the patient is here for a pulmonary follow-up visit. The patient is status post bronchoscopy. Her cultures were positive for E coli in the lungs. Sensitive to Bactrim and also quinolones. The patient does take antiarrhythmic agents and the use of quinolones could be dangerous with increasing QT prolongations. Although Levaquin works well for her will hold off on using it further. The patient did tolerate Bactrim. Not working as good but she has seen some improvement in her symptoms. In meantime the patient does have increasing shortness of breath and does have some more increased wheezing on examination. She is concerned about using prednisone because she has had some issues with alopecia. Therefore the patient be treated with Daliresp. Daliresp hopefully with decrease her need for prednisone. She is also using nebulized therapy with budesonide and bronchodilator therapy. She is using the percussion vest once or twice a day for mucus clearance. This point she is maximizing respiratory therapy. after completing the treatment with the Bactrim we can always resend the sputum to see if the coli still present. This is the 2nd time that she has cultured it positive. 04/10/2022 the patient is here for a pulmonary follow-up visit. Since we last spoke the patient did see her coal shooter. She may have had some bouts of tachyarrhythmia. They recommended that she continue her sotalol for now. Her respiratory symptoms have not significantly changed on the rifampin and ethambutol. She had 1 day where her symptoms worsen significantly but then the shortness of breath did improved. Today on examination she is wheezy in may be that she has some underlying exacerbation of her COPD. She is also concerned because she has had the coli infection in the past and she is wondering if she still can have that infection in view of the patient's worsening respiratory symptoms I will treated for bout of bronchitis. I also provide her with a sputum cup so she can resend a sputum culture for both the AFB and Gram staining culture. Will plan to follow-up in 3 months. The patient is no better then sherrell l have to talk to Cardiology regarding considering stopping the antiarrhythmic agent. Another option is to consider a referral to [facility]. 05/31/2022 the patient is here for sick visit. She has been doing a lot better when she started the amikacin nebulized therapy. Her chest congestion has improved dramatically. Her wheezing has improved as well. She also continues with the other on the mycobacterial antibiotics. Although she has been noticing that she has been more hypoxic and more short of breath. This is been the case for the last 2 or 3 days. She has had to increase her oxygen requirements. She was desaturating to the low 80s and she called our office. We had her come in we did a 6 minute walk test. The patient did need continues oxygen. The patient also had a chest x-ray which demonstrated no acute disease. At this point the patient may be having a reaction to the amikacin. Therefore she is going to hold over the weekend and start a Medrol Danilo to see if she has any improvement. If however she has any worsening hypoxia worsening symptoms she is to come to the ER for further evaluation. if she is doing better and she is able to start the amikacin she will watch for any adverse effects. 07/09/2022 the patient is here for a pulmonary follow-up visit. She is tolerating the amikacin better. She is doing every other day. I am hopeful that in the coming months we can consider trying her back in daily. She continues on the ethambutol and rifampin 3 times a week. Her cough mucus has been significantly better. It was a lot better when she was on amikacin daily but that was hard to for her to tolerate due to her significant coughing irritation of her oral airway. May be a component of tolerance therefore, she should hopefully tolerated better in that the the case and a few months after she gets used to it. She had sputum cultures sent back in May 2022 demonstrating no further organisms and mycobacteria. I did provide her with another cup in order for her to provide us with another sample. She continues with respiratory therapy. She also continues with her oxygen. Overall the patient is doing better and therefore she should start performing pulmonary rehabilitation. She can do this in person or in the pulmonary lab. I will have her undergo PFTs in order to get her into the lab to do in person training. 10/16/2021 into the patient is here for pulmonary follow-up visit. She was briefly in the hospital with worsening respiratory symptoms. She had acute on chronic hypoxic respiratory failure. The patient did have a chest x-ray demonstrating bilateral hazy opacities consistent with pneumonitis. Likely secondary to the inhaled amikacin. She was given Solu-Medrol then prednisone and her symptoms improved dramatically along with her chest x-ray per from a she got home she restart DM he is in 3 times a week but still developed worsening shortness of breath he required more oxygen. At this point the patient tried and failed the amikacin. The the a on a good note the patient did a have improved her wheezing also chest congestion Beth's the last few months that she use the inhaled antibiotics she did have a positive response. She is going to continue with the ethambutol and the rifampin for now. The patient will need prednisone taper. Will plan to follow-up in 4 weeks. In the meantime we also looked at her blood work and sputum culture which grew Aspergillus. She does have a garden in her home and she uses hydroponics. Unfortunately, this is putting her at risk for mold exposures. No evidence of an active aspergillus infection at this time, likely colonizer. We will monitor for now. 11/06/2022 the patient is here for sick visit. She was feeling well for about 2 weeks and then she started feeling bad again. Chest congestion with green sputum and also feeling nauseous. She has had some subjective fevers and chills. She was supposed to test for COVID she has not done as of yet. The patient has been off the amikacin now for few weeks. Therefore, it is unclear if is related to the completion of the medication or there is a new infection. She has had multiple positive cultures in the past. I did recommend getting a sputum culture. She does have a planned trip for the beginning of November. Will try to treat her empirically then in order for her to be able to go her trip. Also try to get sputum cultures. If the patient is no better she is to call the office. Otherwise we will plan to consider bronchoscopy when she is back in her trip in order to better get a sense of any ongoing infection that are making her worse. She continues use the oxygen therapy with good effect. 11/28/2022 the patient is here for pulmonary follow-up visit. The patient continues to have cough although says slowly improving. Her mucus is less thick and is very watery. Still having shortness of breath. She had not completed the prednisone. She has 3 more days of the IV antibiotics. She has significant bronchiectasis and now Pseudomonas. The patient is finishing up the course of MV antibiotics but continues to be symptomatic. Therefore I do believe that she will benefit from inhaled tobramycin. The patient will start a trial mycin 28 days on and 28 days off. She should continue with current respiratory therapy in the chest physical therapy. Right now will holding off on the antibiotics for the mycobacterial disease. That is okay for now will going to focus on the Pseudomonas once the patient is able to start the inhaled tobramycin will start working on adding the anti mycobacterial therapy. 01/22/2023 the patient is here for pulmonary follow-up visit. She started the inhaled tobramycin. Has been very affecting beneficial. Her respiratory status is improved dramatically. Initially when she started she has developed a cough and she had some desaturation but after that she has been feeling a lot better. Now she completed 28 days and she is off it for the last week. She has noted some slight increase congestion but she is hoping that she stays well. She is using her chest percussion vest and she is using her percussion valve for chest PT. She is also using nebulized therapy along with the budesonide. The patient overall doing well. We did look at her last CT scan from 2020 demonstrating a pulmonary nodule which is new measuring 4 mm in size. She is going to require repeat CT scan since has been more than a year. Will have her return in [address] scan at this time. The patient has any issues prio r to that she will call for an earlier assessment. 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 anticoagulant therapy Pneumonia Pneumonitis Pulmonary nodules Supplemental oxygen dependent Surgical History History of appendectomy History of bronchoscopy Hx of colonoscopy Social History Household Members: Other Household Members Other:: alone Housing: Condominium Are you a primary child care specialist to a significant other at home: No Do you presently have visiting nurse or other home services: No Alcohol intake: never Patient Tobacco Use Status: Never used Tobacco Tobacco use type: Cigarette Years Smoked: 35 Advance Directives Date on File: 01/31/22 service: No Current occupational status: retired Physical Exam Vital Signs: Last Vital Signs Pulse 82 01/22/23 10:11 BP 132/70 01/22/23 10:11 Pulse Ox 95 01/22/23 10:11 Oxygen Delivery Method Room Air 01/22/23 10:11 BMI result Body Mass Index 22.9 Immunizations pneumoc 20-bhargavi conj-dip cr(PF) Performing Provider: Dominick Brown MD Administered by: Chichi Jensen LPN on 01/22/23 11:01 Dose Route Admin Location Lot Number Expiration Date NDC Flat Breakdown Processor 0.5 mL IM Right Deltoid [id number] 04/15/24 8320-1289-52 [employer] VIS Given Date VIS Provided VIS Publication Date 01/22/23 Single Vaccine 22 Eligibility Eligibility Date Funding Source Not [facility] Eligible 01/22/23 Private Assessment & Plan Assessment & Plan (1) Bronchiectasis: Code(s): J47.9 - Bronchiectasis, uncomplicated (2) Pulmonary nodules: Comment: New 4 mm pulmonary nodule noted on CT scan from May 2021. Other pulmonary nodules were stable. 10/23/21 new 1.3 cm and 1.0 cm upper lung nodules. CT chest 01/08/2022 with extensive bronchiectasis and significant mucus plugging. Code(s): R91.8 - Other nonspecific abnormal finding of lung field (3) COPD (chronic obstructive pulmonary disease): Code(s): J44.9 - Chronic obstructive pulmonary disease, unspecified (4) Nontuberculous mycobacterial disease of lung: Code(s): A31.0 - Pulmonary mycobacterial infection (5) Pneumonitis: Comment: Likely due to the amikacin Code(s): J18.9 - Pneumonia, unspecified organism (6) Pseudomonas respiratory infection: Code(s): J98.8 - Other specified respiratory disorders; B96.5 - Pseudomonas (aeruginosa) (mallei) (pseudomallei) as the cause of diseases classified elsewhere Plan continue Rifampin MWF while on abx holding ethambutol continue inhaled BALBINA 28 days on, 28 days off continue Trelegy 200 daily continue DuoNeb nebulized therapy with budesonide hypertonic 7% solution BID continue percussion vest. continue oxygen to keep pox>90% follow-up in 2-3 months Orders: Orders CT chest wo IV con 3 Months R91.8 - Other nonspecific abnormal finding of lung field Pneumococcal 20 Immunization Today J96.11 - Chronic respiratory failure with hypoxia Medications: Discontinued ipratropium-albuterol 0.5 mg-3 mg(2.5 mg base)/3 mL 3 mL inhalation QID 120 mL 11RF J41.1 - Mucopurulent chronic bronchitis amikacin liposomal-neb.accessr 590 mg/8.4 mL 590 mg inhalation Q OTHER DAY 28 days 235.2 mL 6RF prednisone 20 mg (2 x 10 mg) PO DAILY 30 days 60 tabs 1RF rifampin 300 mg PO 3XW 36 caps 0RF ethambutol 800 mg (2 x 400 mg) PO 3XW 90 days 78 tabs 0RF Coding Level of Care Code Est Pt Level 4 (29792) Diagnoses Bronchiectasis J47.9 Pulmonary nodules R91.8 COPD (chronic obstructive pulmonary disease) J44.9 Nontuberculous mycobacterial disease of lung A31.0 Pneumonitis J18.9 Pseudomonas respiratory infection J98.8; B96.5 Time Spent (min) 19
[2023-01-22 10:11] VITALS: BP 132/70; PULSE 82; O2SAT 95; BMI 22.9
--- NOTE | 2023-01-22 11:03 | A.OFFVIS_ITS ---
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 She has had bronchoscopies in the past with positive stenotrophomonas. She also has a cardiac condition including AFib a flutter. She had a prolonged hospitalization the summer was very sick. She started to feel better. She completed a Holter monitor. She is still having issues with reflux. She is maintaining a diet and taking medications to minimize the acid. The patient did have a CT scan of the chest March 16, 2019 that we personally. The pulmonary nodules appear to be stable. She does have some evidence of airspace disease in the bases bring up the question of micro aspirations into the lungs. This appears to be a little bit worse on the left side in the right with compared to previous. Therefore, we talked about the importance of micro aspirations and minimizing the apparent we can consider promotility agents including Reglan, azithromycin and temporary done. However, domperidone and azithromycin do cause QT prolongation with the dangers with her sotalol. Right now Reglan is an option but will hold off at this time since she is doing well. We did review her CT scan of the chest demonstrating interval improvement her pulmonary nodules. She still has bronchiectatic changes and bronchitis looking airways, but, overall better. The right lower lobe has more dense airspace disease but that even looks improved when compared to her previous CAT scan from [facility]. She still waiting to get a portable oxygen concentrator. She has been working with [facility] to get that arranged. 05/31/2022 the patient is here for sick visit. She has been doing a lot better when she started the amikacin nebulized therapy. Her chest congestion has improved dramatically. Her wheezing has improved as well. She also continues with the other on the mycobacterial antibiotics. Although she has been noticing that she has been more hypoxic and more short of breath. This is been the case for the last 2 or 3 days. She has had to increase her oxygen requirements. She was desaturating to the low 80s and she called our office. We had her come in we did a 6 minute walk test. The patient did need continues oxygen. The patient also had a chest x-ray which demonstrated no acute di sease. At this point the patient may be having a reaction to the amikacin. Therefore she is going to hold over the weekend and start a Medrol Danilo to see if she has any improvement. If however she has any worsening hypoxia worsening symptoms she is to come to the ER for further evaluation. if she is doing better and she is able to start the amikacin she will watch for any adverse effects. 07/09/2022 the patient is here for a pulmonary follow-up visit. She is tolerating the amikacin better. She is doing every other day. I am hopeful that in the coming months we can consider trying her back in daily. She continues on the ethambutol and rifampin 3 times a week. Her cough mucus has been significantly better. It was a lot better when she was on amikacin daily but that was hard to for her to tolerate due to her significant coughing irritation of her oral airway. May be a component of tolerance therefore, she should hopefully tolerated better in that the the case and a few months after she gets used to it. She had sputum cultures sent back in May 2022 demonstrating no further organisms and mycobacteria. I did provide her with another cup in order for her to provide us with another sample. She continues with respiratory therapy. She also continues with her oxygen. Overall the patient is doing better and therefore she should start performing pulmonary rehabilitation. She can do this in person or in the pulmonary lab. I will have her undergo PFTs in order to get her into the lab to do in person training. 10/16/2021 into the patient is here for pulmonary follow-up visit. She was briefly in the hospital with worsening respiratory symptoms. She had acute on chronic hypoxic respiratory failure. The patient did have a chest x-ray demonstrating bilateral hazy opacities consistent with pneumonitis. Likely secondary to the inhaled amikacin. She was given Solu-Medrol then prednisone and her symptoms improved dramatically along with her chest x-ray per from a she got home she restart DM he is in 3 times a week but still developed worsening shortness of breath he required more oxygen. At this point the patient tried and failed the amikacin. The the a on a good note the patient did a have improved her wheezing also chest congestion Beth's the last few months that she use the inhaled antibiotics she did have a positive response. She is going to continue with the ethambutol and the rifampin for now. The patient will need prednisone taper. Will plan to follow-up in 4 weeks. In the meantime we also looked at her blood work and sputum culture which grew Aspergillus. She does have a garden in her home and she uses hydroponics. Unfortunately, this is putting her at risk for mold exposures. No evidence of an active aspergillus infection at this time, likely colonizer. We will monitor for now. 11/06/2022 the patient is here for sick visit. She was feeling well for about 2 weeks and then she started feeling bad again. Chest congestion with green sputum and also feeling nauseous. She has had some subjective fevers and chills. She was supposed to test for COVID she has not done as of yet. The patient has been off the amikacin now for few weeks. Therefore, it is unclear if is related to the completion of the medication or there is a new infection. She has had multiple positive cultures in the past. I did recommend getting a sputum culture. She does have a planned trip for the beginning of November. Will try to treat her empirically then in order for her to be able to go her trip. Also try to get sputum cultures. If the patient is no better she is to call the office. Otherwise we will plan to consider bronchoscopy when she is back in her trip in order to better get a sense of any ongoing infection that are making her worse. She continues use the oxygen therapy with good effect. 11/28/2022 the patient is here for pulmonary follow-up visit. The patient continues to have cough although says slowly improving. Her mucus is less thick and is very watery. Still having shortness of breath. She had not completed the prednisone. She has 3 more days of the IV antibiotics. She has significant bronchiectasis and now Pseudomonas. The patient is finishing up the course of MV antibiotics but continues to be symptomatic. Therefore I do believe that she will benefit from inhaled tobramycin. The patient will start a trial mycin 28 days on and 28 days off. She should continue with current respiratory therapy in the chest physical therapy. Right now will holding off on the antibiotics for the mycobacterial disease. That is okay for now will going to focus on the Pseudomonas once the patient is able to start the inhaled tobramycin will start working on adding the anti mycobacterial therapy. 01/22/2023 the patient is here for pulmonary follow-up visit. She started the inhaled tobramycin. Has been very affecting beneficial. Her respiratory status is improved dramatically. Initially when she started she has developed a cough and she had some desaturation but after that she has been feeling a lot better. Now she completed 28 days and she is off it for the last week. She has noted some slight increase congestion but she is hoping that she stays well. She is using her chest percussion vest and she is using her percussion valve for chest PT. She is also using nebulized therapy along with the budesonide. The patient overall doing well. We did look at her last CT scan from 2020 demonstrating a pulmonary nodule which is new measuring 4 mm in size. She is going to require repeat CT scan since has been more than a year. Will have her return in [address] scan at this time. The patient has any issues prior to that she will call for an earlier assessment. 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 anticoagulant therapy Pneumonia Pneumonitis Pulmonary nodules Supplemental oxygen dependent Surgical History History of appendectomy History of bronchoscopy Hx of colonoscopy Social History Household Members: Other Household Members Other:: alone Housing: Condominium Are you a primary attending ambulatory care to a significant other at home: No Do you presently have visiting nurse or other home services: No Alcohol intake: never Patient Tobacco Use Status: Never used Tobacco Tobacco use type: Cigarette Years Smoked: 35 Advance Directives Date on File: 01/31/22 service: No Current occupational status: retired Review of Systems Const Reports fatigue, Denies fever(s), Denies malaise and Denies night sweats ENT Denies change in voice, Denies lip swelling, Denies mouth pain, Reports nasal congestion, Reports nasal discharge and Denies tongue swelling Card Denies chest pain and Reports dyspnea on exertion Resp Reports chest congestion, Reports cough, Denies hemoptysis, Reports dyspnea on exertion and Denies wheezing GI Denies abdominal pain Musc Denies no additional complaints Neuro Denies Neuro-related abnormal movements Psych Denies no additional complaints Endo Reports fatigue Sherwin/Lymph Denies easy bleeding and Denies lymphadenopathy Aller/Immun Denies lip swelling, Denies tongue swelling and Denies wheezing Physical Exam Vital Signs: Last Vital Signs Pulse 82 01/22/23 10:11 BP 132/70 01/22/23 10:11 Pulse Ox 95 01/22/23 10:11 Oxygen Delivery Method Room Air 01/22/23 10:11 BMI result Body Mass Index 22.9 Last Vital Signs Temp 98.1 F 11/14/22 12:00 Pulse 87 11/14/22 12:00 Resp 19 11/14/22 12:00 BP 126/61 11/14/22 12:00 Pulse Ox 95 11/14/22 12:00 O2 Del Method Nasal Cannula 11/14/22 12:00 O2 Flow Rate 2 11/14/22 08:00 Oxygen Flow Rate 4 11/11/22 14:50 BMI result Body Mass Index 23.2 Const General: alert Neck Neck: Yes normal visual inspection, Yes full ROM and Yes no lymphadenopathy Chest Chest palpation & inspection: normal inspection of the chest Resp Auscultation: no crackles and diminished lung sounds Cardio Rate: regular rate Rhythm: regular rhythm Heart sounds: S1 normal heart sound present and S2 normal heart sound present GI Palpation (GI): Soft to palpation and Tenderness to palpation present (GI) in the LLQ Auscultation: normal bowel sounds Skin General skin exam: rashes and/or lesions noted Immunizations pneumoc 20-bhargavi conj-dip cr(PF) Performing Provider: Dominick Brown MD Administered by: Chichi Jensen LPN on 01/22/23 11:01 Dose Route Admin Location Lot Number Expiration Date NDC Gold Leaf Layer 0.5 mL IM Right Deltoid [id number] 04/15/24 8179-2861-57 [employer] VIS Given Date VIS Provided VIS Publication Date 01/22/23 Single Vaccine 22 Eligibility Eligibility Date Funding Source Not [facility] Eligible 01/22/23 Private Assessment & Plan Assessment & Plan (1) Bronchiectasis: Code(s): J47.9 - Bronchiectasis, uncomplicated (2) Pulmonary nodules: Comment: New 4 mm pulmonary nodule noted on CT scan from May 2021. Other pulmonary nodules were stable. 10/23/21 new 1.3 cm and 1.0 cm upper lung nodules. CT chest 01/08/2022 with extensive bronchiectasis and significant mucus plugging. Code(s): R91.8 - Other nonspecific abnormal finding of lung field (3) COPD (chronic obstructive pulmonary disease): Code(s): J44.9 - Chronic obstructive pulmonary disease, unspecified (4) Nontuberculous mycobacterial disease of lung: Code(s): A31.0 - Pulmonary mycobacterial infection (5) Pseudomonas respiratory infection: Code(s): J98.8 - Other specified respiratory disorders; B96.5 - Pseudomonas (aeruginosa) (mallei) (pseudomallei) as the cause of diseases classified elsewhere Plan Continue Avtar 28 days on, 28 days off continue Rifampin stopped Ethambutol CT chest in 3 months continue Advair/Spiriva ROBERT as needed continue budesonide oxygen with activity and sleep Prevnar 20 F/U 3 months Orders: Orders CT chest wo IV con 3 Months R91.8 - Other nonspecific abnormal finding of lung field Pneumococcal 20 Immunization Today J96.11 - Chronic respiratory failure with hypoxia Medications: Discontinued ipratropium-albuterol 0.5 mg-3 mg(2.5 mg base)/3 mL 3 mL inhalation QID 120 mL 11RF J41.1 - Mucopurulent chronic bronchitis amikacin liposomal-neb.accessr 590 mg/8.4 mL 590 mg inhalation Q OTHER DAY 28 days 235.2 mL 6RF prednisone 20 mg (2 x 10 mg) PO DAILY 30 days 60 tabs 1RF rifampin 300 mg PO 3XW 36 caps 0RF ethambutol 800 mg (2 x 400 mg) PO 3XW 90 days 78 tabs 0RF Coding Level of Care Code Est Pt Level 4 (42895) Diagnoses Bronchiectasis J47.9 Pulmonary nodules R91.8 COPD (chronic obstructive pulmonary disease) J44.9 Nontuberculous mycobacterial disease of lung A31.0 Pseudomonas respiratory infection J98.8; B96.5 Time Spent (min) 19
[2023-01-22 11:05] VITALS: BMI 22.9
== END 2023-01-22 10:43 | disposition home or self-care (01) ==
PROVIDERS: PCP Internal Medicine; Visit Provider Hospitalist
DX: J47.9 Bronchiectasis, uncomplicated (principal); R91.8 Other nonspecific abnormal finding of lung field; A31.0 Pulmonary mycobacterial infection; J18.9 Pneumonia, unspecified organism; J98.8 Other specified respiratory disorders; B96.5 Pseudomonas (aeruginosa) (mallei) (pseudomallei) as the cause of diseases classified elsewhere
CPT/HCPCS: 99214

== ENCOUNTER → 2023-01-22 09:53 | Outpatient (BNVA) | payer MEDICARE, SELFPAY | PROVIDERS: PCP Internal Medicine; Visit Provider Hospitalist | DX: Z23 Encounter for immunization (principal); J47.9 Bronchiectasis, uncomplicated; A31.0 Pulmonary mycobacterial infection; R91.8 Other nonspecific abnormal finding of lung field; J98.8 Other specified respiratory disorders; B96.5 Pseudomonas (aeruginosa) (mallei) (pseudomallei) as the cause of diseases classified elsewhere | CPT/HCPCS: 90471; 90677; 99212 ==

== ENCOUNTER 2023-03-25 11:51 | Emergency (ER) | payer MEDICARE, SELFPAY ==
[2023-03-25 13:09] VITALS: BP 168/73; PULSE 84; RESP 16; TEMP 36.7; O2SAT 93; BMI 22.9
--- NOTE | 2023-03-25 13:10 | ED_ITS ---
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 in the past and now taking tobramycin Q 28 days which she finished 12 days ago since then come patient complaining of increased shortness of breath desaturated to 80% at room air patient is on home oxygen 2 L patient does have mucopurulent phlegm no fever no chills, ++ nausea Related Data Home Medications Medication Instructions Recorded Confirmed antiarthritic combination no.2 900 1,200 mg PO BID 07/03/20 11/11/22 mg tablet (glucosamine-chondroitin) apixaban 5 mg tablet (Eliquis) 5 mg PO BID 07/03/20 11/11/22 calcium carbonate 600 mg calcium 600 mg PO DAILY 07/03/20 11/11/22 (1,500 mg) tablet (Calcium) coenzyme Q10 400 mg capsule 400 mg PO DAILY 07/03/20 11/11/22 guaifenesin 600 mg tablet, 600 mg PO BID 07/03/20 11/11/22 extended release 12 hr (Mucinex) hydrochlorothiazide 25 mg tablet 25 mg PO DAILY 07/03/20 11/11/22 lorazepam 0.5 mg tablet 0.5 mg PO BEDTIME PRN Sleep 07/03/20 11/11/22 omeprazole 20 mg capsule,delayed 20 mg PO BID 07/03/20 11/11/22 release sotalol 80 mg tablet 80 mg PO BID 07/03/20 11/11/22 vit 1 cap PO BID 07/03/20 11/11/22 C,E,zinc,Jr-dsuzy-0-lutein-zeaxanthin 250 mg-2.5 mg-0.5 mg capsule zolpidem 5 mg tablet (Ambien) 5 mg PO BEDTIME PRN Sleep 07/03/20 11/11/22 atorvastatin 20 mg tablet 20 mg PO BEDTIME 07/18/21 11/11/22 potassium chloride 20 mEq 20 meq PO BEDTIME 07/18/21 11/11/22 tablet,extended release(part/cryst) Oxygen Home Use 07/09/22 alendronate 70 mg tablet 70 mg PO CLEMENTS 07/09/22 11/11/22 nebulizers 07/09/22 Lactobacillus rhamnosus GG 10 1 cap PO DAILY 09/27/22 11/11/22 billion cell capsule (Culturelle) fluticasone fur. 200 mcg-umeclid 1 ea inhalation DAILY 09/27/22 09/27/22 62.5 mcg-vilant 25 mcg inhalat.powder (Trelegy Ellipta) magnesium oxide 400 mg PO DAILY 09/27/22 11/11/22 potassium chloride 20 mEq 10 meq PO DAILY 09/27/22 11/11/22 tablet,extended release(part/cryst) fluticasone 500 mcg-salmeterol 50 1 ea inhalation BID 11/11/22 11/11/22 mcg/dose blistr powdr for inhalation (Wixela Inhub) tiotropium bromide 18 mcg capsule 1 cap inhalation DAILY 11/11/22 11/11/22 with inhalation device (Spiriva with HandiHaler) Previous Rx's Medication Instructions Recorded sodium chloride 7 % for 4 ml inhalation BID #240 mL 05/27/22 nebulization albuterol sulfate 90 mcg/actuation 2 puff PO Q6H PRN for wheezing #34 10/22/22 aerosol inhaler grams ondansetron HCl 4 mg tablet 4 mg PO DAILY PRN nausea and 11/06/22 vomiting #5 tabs cefepime 2 gram solution for 2 g IV Q12H #36 ea 11/14/22 injection tobramycin 300 mg/5 mL in 0.225 % 300 mg (5 mL) inhalation BID 28 11/28/22 sodium chloride for nebulization days #280 mL (Avtar) rifampin 300 mg capsule 300 mg PO 3XW 28 days #12 caps 01/13/23 budesonide 0.5 mg/2 mL suspension 0.5 mg (2 mL) inhalation BID #60 mL 03/03/23 for nebulization ipratropium 0.5 mg-albuterol 3 mg 3 ml inhalation QID #120 ea 03/03/23 (2.5 mg base)/3 mL nebulization soln prednisone 20 mg tablet 40 mg (2 x 20 mg) PO DAILY #10 tabs 03/25/23 Allergies Allergy/AdvReac Type Severity Reaction Status Date / Time No Known Allergies Allergy Verified 01/22/23 10:14 Review of Systems 2 Review of Systems: Yes all other systems are reviewed and are negative [facility] Past Medical History Medical History Pneumonitis Nontuberculous mycobacterial disease of lung GERD (gastroesophageal reflux disease) History of diverticulitis Hyperlipidemia HTN (hypertension) Anxiety Supplemental oxygen dependent On anticoagulant therapy Pneumonia Afib 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 Pulmonary nodules COPD (chronic obstructive pulmonary disease) Bronchiectasis Surgical History Hx of colonoscopy History of bronchoscopy History of appendectomy Social History Social History Household Members: Other Household Members Other:: alone [facility] Are you a primary acute care registered nurse to a significant other at home: No Do you presently have visiting nurse or other home services: No Alcohol intake: never Patient Tobacco Use Status: Never used Tobacco Tobacco use type: Cigarette Years Smoked: 35 Advance Directives: Yes Advance Directives on File: Yes Advance Directives Date on File: 01/31/22 service: No Current occupational status: retired Physical Exam ED Vital Signs: Vital Signs - 24 hr 03/25/23 13:09 03/25/23 19:51 Temperature 98.1 F Pulse Rate 84 Respiratory Rate 16 Blood Pressure 168/73 H Pulse Oximetry 93 97 Oxygen Delivery Method Room Air Nasal Cannula Oxygen Flow Rate 2 BMI result Body Mass Index 22.9 Appearance: Alert. Oriented X3. No acute distress. Eyes: PERRLA, No Nystagmus ENT: Pharynx normal. Oral Mucosa moist Neck: Normal inspection. Neck supple. CVS: Normal heart rate and rhythm. Pulses normal. Respiratory: No respiratory distress. Equal air entry bilateral, no wheezing/rales/rhonchi, prolonged expiration Abdomen: Soft and nontender. Bowel sounds are present, no mass palpable, no CVA tenderness Skin: Skin warm and dry. Normal skin color. Normal skin turgor. Extremities: No lower extremity edema. No calf tendernessNo sensory deficit.No cerebellar signs , cranial nerves II-XII intact Course Course Course Narrative: This is an RME: Additional HPI, ROS, PE not included below will be deferred to primary provider. 82-year-old female with history of chronic hypoxic respiratory failure, COPD, tracheobronchial malacia, bronchiectasis, history of multidrug resistant stenotrophomonas, Aspergillosis colonization, who presents to the ER from home presenting to the emergency department with a complaint of shortness of breath x several weeks, worsening over the weekend. 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 Brown, who told her to come to the ER. She states that she only uses O2 at home. Reports that her saturations fluctuated between 80-85%. Currently on inhaled tobramycin. Plan: Labs, EKG, CXR UA Medications Administered Discontinued Medications Generic Name Dose Route Start Last Admin Trade Name Freq PRN Reason Stop Dose Admin Dexamethasone 10 mg 03/25/23 22:52 03/25/23 23:09 Dexamethasone 2 Mg Tablet PO 03/25/23 22:53 Not Given ONCE ONE Medical Decision Making Medical Decision Making [facility] Narrative: Patient with chronic lung disease with interstitial lung disease and bronchiectasis on chronic antibiotic treatment chest x-ray negative for any acute infiltrate vitals are stable patient does have oxygen at home felt better after nebulizing treatment discharge patient home was given Decadron in the ER and discharged home on prednisone Differential Diagnosis Differential Diagnoses: The differential diagnosis associated with the presentation includes COPD exacerbation/pneumonia/CHF/chronic respiratory failure Admission/Observation Consideration of admission/observation: Escalation of care including admission/observation considered Lab Data [facility] Lab Attestation statement: I reviewed the patient's lab results. 03/25/23 15:36 03/25/23 15:36 Labs: Lab Results 03/25/23 Range/Units 15:36 WBC 9.1 (4.8-10.8) X10*3/uL RBC 4.72 (4.20-5.50) X10*6/uL Hgb 14.6 (12.0-16.0) g/dl Hct 43.0 (37.0-47.0) % MCV 91.1 (80.0-98.0) fL MCH 30.9 (27.0-33.0) pg MCHC 34.0 (31.0-35.0) g/dl RDW 13.4 (11.0-16.0) % Plt Count 325 D (160-400) X10*3/uL MPV 8.7 L (9.4-12.3) fL Immature Gran % (Auto) 0.6 H (0.0-0.4) % Neut % (Auto) 58.1 (45-73) % Lymph % (Auto) 27.5 (20-40) % Charlton % (Auto) 12.1 H (2-11) % Eos % (Auto) 1.4 (0-4) % Baso % (Auto) 0.3 (0-2) % Lymph # (Auto) 2.5 (1.2-4.9) X10*3/uL Charlton # (Auto) 1.1 (0.1-1.2) X10*3/uL Eos # (Auto) 0.1 (0.0-0.4) X10*3/uL Baso # (Auto) 0.0 (0.0-0.2) X10*3/uL Abs Immat Gran (auto) 0.05 H (0.00-0.03) X10*3/uL Absolute Neuts (auto) 5.3 (2.0-8.3) x10*3/uL Absolute Nucleated RBC 0.000 (0.0-0.012) X10*3/uL Nucleated RBC % (auto) 0.0 (0.0-0.2) /100WBC Sodium 135 (135-145) mmol/L Potassium 3.6 (3.3-5.1) mmol/L Chloride 97 (96-108) mmol/L Carbon Dioxide 27 (22-29) mmol/L Anion Gap 15 (12-20) BUN 13 (9-16) mg/dL Creatinine 0.66 (0.5-1.4) mg/dL Estim Creat Clear Calc 62.6 Estimated GFR > 60 Random Glucose 95 (60-115) mg/dL Calcium 10.2 D (8.4-10.2) mg/dL Total Bilirubin 0.3 (0.0-1.0) mg/dL Direct Bilirubin 0.1 (0.0-0.5) mg/dL AST 18 (5-31) U/L ALT 14 (0-31) U/L Alkaline Phosphatase 60 (39-117) U/L Troponin I High Sens < 2.7 (<3.5-17.0) ng/L B-Natriuretic Peptide 48 (<100) pg/mL Total Protein 7.7 (6.5-8.0) g/dL Albumin 3.9 (3.5-5.0) g/dL Influenza Type A (PCR) NEGATIVE (Negative) Influenza Type B (PCR) NEGATIVE (Negative) RSV RNA Qual (PCR) NEGATIVE (Negative) SARS-CoV-2 RNA (RT-PCR) NEGATIVE (Negative) Independent Interpretation I performed an independent interpretation of an: EKG Interpretation: Normal sinus rhythm heart rate 88 beats per minut premature atrial beats no acute ST wave changes no acute ischemic Discharge Plan Discharge Clinical Impression: COPD (chronic obstructive pulmonary disease) Patient Disposition: Home, Self-Care Instructions: Pulmonary Fibrosis (ED), COPD (Chronic Obstructive Pulmonary Disease) (ED) Additional Instructions: Continue your oxygen and nebulized treatment and start taking prednisone follow- up with your lungs specialist Prescriptions: New prednisone 20 mg tablet 40 mg PO DAILY Qty: 10 0RF No Action sodium chloride 7 % solution for nebulization 4 ml inhalation BID Qty: 240 11RF albuterol sulfate 90 mcg/actuation HFA aerosol inhaler 2 puff PO Q6H PRN (Reason: for wheezing) Qty: 34 3RF rifampin 300 mg capsule 300 mg PO 3XW 28 Days Qty: 12 6RF budesonide 0.5 mg/2 mL suspension for nebulization 0.5 mg inhalation BID Qty: 60 11RF ipratropium-albuterol 0.5 mg-3 mg(2.5 mg base)/3 mL solution for nebulization 3 ml inhalation QID Qty: 120 11RF Trelegy Ellipta 200-62.5-25 mcg blister with device 1 ea inhalation DAILY potassium chloride 20 mEq tablet,ER particles/crystals 10 meq PO DAILY Culturelle 10 billion cell Capsule 1 cap PO DAILY magnesium oxide 400 mg magnesium Tablet 400 mg PO DAILY fluticasone propion-salmeterol [Wixela Inhub] 500-50 mcg/dose blister with device 1 ea inhalation BID Spiriva with HandiHaler 18 mcg capsule, w/inhalation device 1 cap inhalation DAILY cefepime 2 gram Recon Soln 2 g IV Q12H Qty: 36 0RF hydrochlorothiazide 25 mg tablet 25 mg PO DAILY sotalol 80 mg tablet 80 mg PO BID Eliquis 5 mg tablet 5 mg PO BID omeprazole 20 mg capsule,delayed release(DR/EC) 20 mg PO BID vit C,E,Zn,Hc--lht-zeax 250-2.5-0.5 mg capsule 1 cap PO BID calcium carbonate [Calcium 600] 600 mg calcium (1,500 mg) tablet 600 mg PO DAILY glucosamine-chondroitin 900 mg tablet 1,200 mg PO BID zolpidem [Ambien] 5 mg tablet 5 mg PO BEDTIME PRN (Reason: Sleep) lorazepam 0.5 mg tablet 0.5 mg PO BEDTIME PRN (Reason: Sleep) coenzyme Q10 400 mg capsule 400 mg PO DAILY guaifenesin [Mucinex] 600 mg tablet extended release 12hr 600 mg PO BID potassium chloride 20 mEq tablet,ER particles/crystals 20 meq PO BEDTIME atorvastatin 20 mg tablet 20 mg PO BEDTIME alendronate 70 mg tablet 70 mg PO CLEMENTS (DME) nebulizers Misc See Rx Instructions .ROUTE Rx Instructions: As directed (DME) Oxygen Home Use Kit See Rx Instructions .ROUTE Rx Instructions: As directed tobramycin in 0.225 % NaCl [Avtar] 300 mg/5 mL solution for nebulization 300 mg inhalation BID 28 Days Qty: 280 6RF Rx Instructions: 28 days on and 28 days off ondansetron HCl 4 mg tablet 4 mg PO DAILY PRN (Reason: nausea and vomiting) Qty: 5 0RF Interventions: ED Discharge Assessment Last Done: 03/25/23 23:31 Discharge Date/Time: 03/25/23 23:32
--- NOTE | 2023-03-25 13:59 | MHC.EDTECH ---
called patient twice from triage to obtain blood work. No response at 1330 or 1400.
[2023-03-25 15:59] LABS: Alanine Aminotransferase 14 U/L (0-31); Albumin Level 3.9 g/dL (3.5-5.0); Alkaline Phosphatase 60 U/L (39-117); Anion Gap 15 (12-20); Aspartate Amino Transferase 18 U/L (5-31); Bilirubin Direct 0.1 mg/dL (0.0-0.5); Bilirubin Total 0.3 mg/dL (0.0-1.0); Blood Urea Nitrogen 13 mg/dL (9-16); Calcium 10.2 mg/dL (8.4-10.2); Carbon Dioxide 27 mmol/L (22-29); Chloride 97 mmol/L (96-108); Creatinine Clr Calc Pharmacy 62.6; Estimated Glomerular Filt Rate > 60; Glucose Random 95 mg/dL (60-115); Potassium 3.6 mmol/L (3.3-5.1); Sodium 135 mmol/L (135-145); Total Protein 7.7 g/dL (6.5-8.0)
[2023-03-25 19:51] VITALS: O2SAT 97
== END 2023-03-25 23:32 | disposition home or self-care (01) ==
PROVIDERS: Physician Assistant Medical; Emergency Provider Internal Medicine; PCP Internal Medicine
DX: J44.9 Chronic obstructive pulmonary disease, unspecified (principal); R06.02 Shortness of breath; I48.91 Unspecified atrial fibrillation; R11.2 Nausea with vomiting, unspecified; Z20.822 Contact with and (suspected) exposure to COVID-19; Z20.828 Contact with and (suspected) exposure to other viral communicable diseases; Z79.01 Long term (current) use of anticoagulants; Z79.899 Other long term (current) drug therapy
CPT/HCPCS: 0241U; 36415; 71046; 80048; 80076; 83880; 84484; 85025; 93005; 99283; 99284

== ENCOUNTER 2023-04-16 12:44 | Outpatient (REF) | payer MEDICARE, SELFPAY ==
--- NOTE | ~2023-04-16 | CT_ITS ---
EXAMINATION: CT CHEST WITHOUT CONTRAST CLINICAL INFORMATION: Other nonspecific abnormal finding of lung field COMPARISON: Previous chest CTA December 2021 and chest x-ray March 2023 TECHNIQUE: Multidetector volumetric CT imaging of the chest was done. Axial MIP volume rendering provided. Sagittal and coronal reformatted images were obtained. This CT examination was performed using dose optimization techniques as appropriate, variously including the following: *Automated exposure control *Adjustment of mA and/or kV according to patient size (this includes techniques or standardized protocols for targeted exams where dose is matched to indication/reason for exam; i.e. extremities or head) *Use of iterative reconstruction technique DLP: 223 mGy-cm FINDINGS: LUNGS: There is evidence of severe centrilobular and paraseptal emphysema. There is a new slightly lobulated anterior segment left upper lobe nodule adjacent to the interhemispheric fissure. This measures 2.3 x 2.5 cm. On sagittal and coronal reconstructed images this appears more linear and contains air bronchograms. This is heterogeneous in attenuation with low-attenuation areas questionable for areas of cystic change or necrosis. This may represent an infectious or inflammatory process/pneumonia. There is bilateral lower lobe bronchiectasis, bronchial wall thickening and some mucus plugging. There is atelectasis or small infiltrate seen in the posterior costophrenic sulcus of the right lower lobe. There are innumerable small clustered peribronchial nodules 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 appearance suggestive of airways disease. No endobronchial or endotracheal lesion. MEDIASTINUM: Normal heart size. Severe atherosclerotic disease. Normal caliber thoracic aorta. Aortic valve calcification. No pericardial effusion. Small mediastinal lymph nodes. No enlarged lymph nodes. CORONARY ARTERY CALCIFICATION: Moderate PLEURA: There is no pleural effusion. No pleural mass or thickening. AXILLA: No lymphadenopathy. UPPER ABDOMEN: Right renal cyst. No imaging follow-up recommended. Diverticulosis of the colon. Severe atherosclerotic disease of the abdominal aorta. OSSEOUS STRUCTURES: Degenerative changes of the spine. CT/CT chest wo IV con IMPRESSION: Severe emphysema. New heterogeneous nodular density in the anterior segment of the left upper lobe with air bronchograms, question representing a pneumonia. Neoplastic process cannot be excluded and short-term follow-up chest CT following antibiotic therapy recommended in several months. Bilateral lower lobe bronchiectasis, bronchial wall thickening and mucus plugging. Probable small pneumonia in the posterior basal segment of the right lower lobe. Innumerable scattered clustered pulmonary nodules with tree in bud appearance suggestive of airways disease. Severe atherosclerotic disease. Fleischner guidelines were followed.
== END 2023-04-16 12:45 | disposition home or self-care (01) ==
LOC: HO.CT 12:44
PROVIDERS: PCP Internal Medicine; Visit Provider Hospitalist
DX: R91.8 Other nonspecific abnormal finding of lung field (principal)
CPT/HCPCS: 71250

== ENCOUNTER 2023-04-23 10:05 | Outpatient (AMB) | payer MEDICARE, SELFPAY ==
[2023-04-23 10:18] VITALS: BP 128/70; PULSE 78; O2SAT 95; BMI 22.8
--- NOTE | 2023-04-23 10:18 | A.OFFVIS_ITS ---
Intake Vital Signs 04/23/23 10:18 Height 5 ft 6 in Weight 141 lb BMI 22.8 BP 128/70 Blood Pressure Location Rt brachial Position Sitting Pulse 78 Pulse Source Pulse Oximeter Pulse Oximetry (%) 95 Oxygen Delivery Method Room Air Comment 2 Liters Oxygen([facility]) Intake Visit Reasons: COPD Clean Out Driller Helper Required: No Allergies No Known Allergies Allergy (Verified 04/23/23 10:21) HPI HPI Comments History of Present Illness Details Patient is a 82-year-old lady with a known history of COPD in addition to tracheobronchomalacia and also some degree of bronchiectasis with adan e-in-bud. She has had bronchoscopies in the past with positive stenotrophomonas. She also has a cardiac condition including AFib a flutter. She had a prolonged hospitalization the summer was very sick. She started to feel better. She completed a Holter monitor. She is still having issues with reflux. She is maintaining a diet and taking medications to minimize the acid. The patient did have a CT scan of the chest March 16, 2019 that we personally. The pulmonary nodules appear to be stable. She does have some evidence of airspace disease in the bases bring up the question of micro aspirations into the lungs. This appears to be a little bit worse on the left side in the right with compared to previous. Therefore, we talked about the importance of micro aspirations and minimizing the apparent we can consider promotility agents including Reglan, azithromycin and temporary done. However, domperidone and azithromycin do cause QT prolongation with the dangers with her sotalol. Right now Reglan is an option but will hold off at this time since she is doing well. We did review her CT scan of the chest demonstrating interval improvement her pulmonary nodules. She still has bronchiectatic changes and bronchitis looking airways, but, overall better. The right lower lobe has more dense airspace disease but that even looks improved when compared to her previous CAT scan from [facility]. She still waiting to get a portable oxygen concentrator. She has been working with [facility] to get that arranged. 05/31/2022 the patient is here for sick visit. She has been doing a lot better when she started the amikacin nebulized therapy. Her chest congestion has improved dramatically. Her wheezing has improved as well. She also continues with the other on the mycobacterial antibiotics. Although she has been noticing that she has been more hypoxic and more short of breath. This is been the case for the last 2 or 3 days. She has had to increase her oxygen requirements. She was desaturating to the low 80s and she called our office. We had her come in we did a 6 minute walk test. The patient did need continues oxygen. The patient also had a chest x-ray which demonstrated no acute disease. At this point the patient may be having a reaction to the amikacin. Therefore she is going to hold over the weekend and start a Medrol Danilo to see if she has any improvement. If however she has any worsening hypoxia worsening symptoms she is to come to the ER for further evaluation. if she is doing better and she is able to start the amikacin she will watch for any adverse effects. 07/09/2022 the patient is here for a pulmonary follow-up visit. She is tolerating the amikacin better. She is doing every other day. I am hopeful that in the coming months we can consider trying her back in daily. She continues on the ethambutol and rifampin 3 times a week. Her cough mucus has been significantly better. It was a lot better when she was on amikacin daily but that was hard to for her to tolerate due to her significant coughing irritation of her oral airway. May be a component of tolerance therefore, she should hopefully tolerated better in that the the case and a few months after she gets used to it. She had sputum cultures sent back in May 2022 demonstrating no further organisms and mycobacteria. I did provide her with another cup in order for her to provide us with another sample. She continues with respiratory therapy. She also continues with her oxygen. Overall the patient is doing better and therefore she should start performing pulmonary rehabilitation. She can do this in person or in the pulmonary lab. I will have her undergo PFTs in order to get her into the lab to do in person training. 10/16/2021 into the patient is here for pulmonary follow-up visit. She was briefly in the hospital with worsening respiratory symptoms. She had acute on chronic hypoxic respiratory failure. The patient did have a chest x-ray demonstrating bilateral hazy opacities consistent with pneumonitis. Likely secondary to the inhaled amikacin. She was given Solu-Medrol then prednisone and her symptoms improved dramatically along with her chest x-ray per from a she got home she restart DM he is in 3 times a week but still developed worsening shortness of breath he required more oxygen. At this point the patient tried and failed the amikacin. The the a on a good note the patient did a have improved her wheezing also chest congestion Beth's the last few months that she use the inhaled antibiotics she did have a positive response. She is going to continue with the ethambutol and the rifampin for now. The patient will need prednisone taper. Will plan to follow-up in 4 weeks. In the meantime we also looked at her blood work and sputum culture which grew Aspergillus. She does have a garden in her home and she uses hydroponics. Unfortunately, this is putting her at risk for mold exposures. No evidence of an active aspergillus in fection at this time, likely colonizer. We will monitor for now. 11/06/2022 the patient is here for sick visit. She was feeling well for about 2 weeks and then she started feeling bad again. Chest congestion with green sputum and also feeling nauseous. She has had some subjective fevers and chills. She was supposed to test for COVID she has not done as of yet. The patient has been off the amikacin now for few weeks. Therefore, it is unclear if is related to the completion of the medication or there is a new infection. She has had multiple positive cultures in the past. I did recommend getting a sputum culture. She does have a planned trip for the beginning of November. Will try to treat her empirically then in order for her to be able to go her trip. Also try to get sputum cultures. If the patient is no better she is to call the office. Otherwise we will plan to consider bronchoscopy when she is back in her trip in order to better get a sense of any ongoing infection that are making her worse. She continues use the oxygen therapy with good effect. 11/28/2022 the patient is here for pulmonary follow-up visit. The patient continues to have cough although says slowly improving. Her mucus is less thick and is very watery. Still having shortness of breath. She had not completed the prednisone. She has 3 more days of the IV antibiotics. She has significant bronchiectasis and now Pseudomonas. The patient is finishing up the course of MV antibiotics but continues to be symptomatic. Therefore I do believe that she will benefit from inhaled tobramycin. The patient will start a trial mycin 28 days on and 28 days off. She should continue with current respiratory therapy in the chest physical therapy. Right now will holding off on the antibiotics for the mycobacterial disease. That is okay for now will going to focus on the Pseudomonas once the patient is able to start the inhaled tobramycin will start working on adding the anti mycobacterial therapy. 01/22/2023 the patient is here for pulmonary follow-up visit. She started the inhaled tobramycin. Has been very affecting beneficial. Her respiratory status is improved dramatically. Initially when she started she has developed a cough and she had some desaturation but after that she has been feeling a lot better. Now she completed 28 days and she is off it for the last week. She has noted some slight increase congestion but she is hoping that she stays well. She is using her chest percussion vest and she is using her percussion valve for chest PT. She is also using nebulized therapy along with the budesonide. The patient overall doing well. We did look at her last CT scan from 2020 demonstrating a pulmonary nodule which is new measuring 4 mm in size. She is going to require repeat CT scan since has been more than a year. Will have her return in [address] scan at this time. The patient has any issues prior to that she will call for an earlier assessment. 04/23/2023 the patient is here for a pulmonary follow-up visit. The patient has not been feeling well lately. She has been having to use her oxygen more regularly. She is currently on the inhaled tobramycin which has been helpful in clearing out some of the chest congestion related to the Pseudomonas and also partially helpful in with the mycobacterial disease. She continues on the rifampin as well. She did stop the family told the past. We did review her recent CT scan of the chest demonstrating a masslike consolidation in the anterior segment of the left upper lobe. This is a worrisome finding but appears to more infectious process. Cannot rule out malignancy at this time. Although the size of it would suggest that this would have been present in previous CAT scans but was not. Therefore, the best option will be to perform a bronchoscopy for further sampling. 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 Pulmonary nodules COPD (chronic obstructive pulmonary disease) Bronchiectasis Surgical History Hx of colonoscopy History of bronchoscopy History of appendectomy Social History Household Members: Other Household Members Other:: alone [facility] Are you a primary assistant child care teacher to a significant other at home: No Do you presently have visiting nurse or other home services: No Alcohol intake: never Patient Tobacco Use Status: Never used Tobacco Tobacco use type: Cigarette Years Smoked: 35 Advance Directives Date on File: 01/31/22 service: No Current occupational status: retired Review of Systems Const Reports fatigue, Denies fever(s), Denies malaise and Denies night sweats ENT Denies change in voice, Denies lip swelling, Denies mouth pain, Reports nasal congestion, Reports nasal discharge and Denies tongue swelling Card Denies chest pain and Reports dyspnea on exertion Resp Reports chest congestion, Reports cough, Denies hemoptysis, Reports dyspnea on exertion and Denies wheezing GI Denies abdominal pain Musc Denies no additional complaints Neuro Denies Neuro-related abnormal movements Psych Denies no additional complaints Endo Reports fatigue Sherwin/Lymph Denies easy bleeding and Denies lymphadenopathy Aller/Immun Denies lip swelling, Denies tongue swelling and Denies wheezing Physical Exam Vital Signs: Last Vital Signs Pulse 78 04/23/23 10:18 BP 128/70 04/23/23 10:18 Pulse Ox 95 04/23/23 10:18 Oxygen Delivery Method Room Air 04/23/23 10:18 BMI result Body Mass Index 22.8 Last Vital Signs Temp 98.1 F 11/14/22 12:00 Pulse 87 11/14/22 12:00 Resp 19 11/14/22 12:00 BP 126/61 11/14/22 12:00 Pulse Ox 95 11/14/22 12:00 O2 Del Method Nasal Cannula 11/14/22 12:00 O2 Flow Rate 2 11/14/22 08:00 Oxygen Flow Rate 4 11/11/22 14:50 BMI result Body Mass Index 23.2 Const General: alert Neck Neck: Yes normal visual inspection, Yes full ROM and Yes no lymphadenopathy Chest Chest palpation & inspection: normal inspection of the chest Resp Effort & Inspection: prolonged expiratory phase Auscultation: no crackles, rhonchi and diminished lung sounds Cardio Rate: regular rate Rhythm: regular rhythm Heart sounds: S1 normal heart sound present and S2 normal heart sound present GI Palpation (GI): Soft to palpation and Tenderness to palpation present (GI) in the LLQ Auscultation: normal bowel sounds Skin General skin exam: rashes and/or lesions noted Results Reviewed Results Reviewed: personally reviewed CT chest with extensive bronchiectasis and emphysema. New BANDAR mass like consolidation. Assessment & Plan Assessment & Plan (1) Bronchiectasis: Code(s): J47.9 - Bronchiectasis, uncomplicated Qualifiers: Bronchiectasis type: uncomplicated Qualified Code(s): J47.9 - Bronchiectasis, uncomplicated (2) Pulmonary nodules: Comment: New 4 mm pulmonary nodule noted on CT scan from May 2021. Other pulmonary nodules were stable. 10/23/21 new 1.3 cm and 1.0 cm upper lung nodules. CT chest 01/08/2022 with extensive bronchiectasis and significant mucus plugging. Code(s): R91.8 - Other nonspecific abnormal finding of lung field (3) COPD (chronic obstructive pulmonary disease): Code(s): J44.9 - Chronic obstructive pulmonary disease, unspecified Qualifiers: COPD type: chronic bronchitis Chronic bronchitis type: mucopurulent Qualified Code(s): J41.1 - Mucopurulent chronic bronchitis (4) Nontuberculous mycobacterial disease of lung: Code(s): A31.0 - Pulmonary mycobacterial infection (5) Pseudomonas respiratory infection: Code(s): J98.8 - Other specified respiratory disorders; B96.5 - Pseudomonas (aeruginosa) (mallei) (pseudomallei) as the cause of diseases classified elsewhere (6) Lung mass: Code(s): R91.8 - Other nonspecific abnormal finding of lung field Plan Plan for Bronchoscopy to assess the BANDAR mass like density Continue Avtar 28 days on, 28 days off continue Rifampin, stopped Ethambutol continue Advair/Spiriva ROBERT as needed continue budesonide oxygen with activity and sleep F/U 6-8 weeks Coding Level of Care Code Est Pt Level 5 (06574) Diagnoses Bronchiectasis without complication J47.9 Bronchiectasis type: uncomplicated Pulmonary nodules R91.8 Mucopurulent chronic bronchitis J41.1 COPD type: chronic bronchitis Chronic bronchitis type: mucopurulent Nontuberculous mycobacterial disease of lung A31.0 Pseudomonas respiratory infection J98.8; B96.5 Lung mass R91.8 Time Spent (min) 35
== END 2023-04-23 11:01 | disposition home or self-care (01) ==
PROVIDERS: PCP Internal Medicine; Visit Provider Hospitalist
DX: J41.1 Mucopurulent chronic bronchitis (principal); R91.8 Other nonspecific abnormal finding of lung field; A31.0 Pulmonary mycobacterial infection; B96.5 Pseudomonas (aeruginosa) (mallei) (pseudomallei) as the cause of diseases classified elsewhere
CPT/HCPCS: 99214

== ENCOUNTER → 2023-04-23 10:05 | Outpatient (BNVA) | payer MEDICARE, SELFPAY | PROVIDERS: PCP Internal Medicine; Visit Provider Hospitalist | DX: J41.1 Mucopurulent chronic bronchitis (principal); R91.8 Other nonspecific abnormal finding of lung field; J47.9 Bronchiectasis, uncomplicated; J98.8 Other specified respiratory disorders; A31.0 Pulmonary mycobacterial infection; B96.5 Pseudomonas (aeruginosa) (mallei) (pseudomallei) as the cause of diseases classified elsewhere | CPT/HCPCS: 99212 ==

== ENCOUNTER 2023-05-01 06:19 | Day surgery (SDC) | payer MEDICARE, SELFPAY ==
--- NOTE | 2023-04-30 12:32 | P.CONAN_ITS ---
HPI - Anesthesia Eval Consult details Narrative: 82yo F for Bronchoscopy Fiberoptic Follows [facility] for afib/flutter and carotid ds. Last office visit 01/2023. Stable without cardiac complaints or change in tx plan. Eliquis for afib, s/p ablation 2016 Per office note, Bilat ICA stenosis 50-69%. 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 (Acute) Pulmonary nodules (Acute) COPD (chronic obstructive pulmonary disease) (Acute) COPD (chronic obstructive pulmonary disease) (Acute) Bronchiectasis (Acute) Past Medical History Medical History (Updated 05/05/23 @ 16:16 by Bhavani Brown NP) Lung mass Pneumonitis Nontuberculous mycobacterial disease of lung GERD (gastroesophageal reflux disease) History of diverticulitis Hyperlipidemia HTN (hypertension) Anxiety Supplemental oxygen dependent Pneumonia Afib 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 Pulmonary nodules COPD (chronic obstructive pulmonary disease) Bronchiectasis Family History Family history of problems with anesthesia: No Surgical History Surgical History Hx of colonoscopy History of bronchoscopy History of appendectomy History of Problems with Anesthesia: No Social History Household Members: Other Household Members Other:: alone Housing: Condominium Are you a primary youth care professional to a significant other at home: No Do you presently have visiting nurse or other home services: No Unable to assess alcohol history related to: Unknown Alcohol intake: never Patient Tobacco Use Status: Former Tobacco user Quit Date: 1998 Tobacco use type: Cigarette Years Smoked: 35 Smoked in Last 30 Days: No Patient Interested in Nicotine Replacement: No Second Hand Smoke Exposure: No Use of substances other than those prescribed or required for medical reasons: No Currently Displaying Signs/Symptoms of Drug Intoxication Withdrawal: No Have you been hit, kicked, punched, or otherwise hurt by someone within the past year? If so, by whom?: No Do you feel safe in your current relationship?: No Is there a partner from a previous relationship who is making you feel unsafe now?: No Are you made to feel afraid or neglected: No Advance Directives: Yes Advance Directives on File: Yes Advance Directives Date on File: 01/31/22 Do you have thoughts of harming others: None Do you have a plan to hurt others: No Plan Recently lost weight without trying: No Eating poorly because of decreased appetite: No Nutrition Risks: No Nutritional Risk Patient : No Poor oral hygiene: No service: No Current occupational status: retired [employer] Allergies Allergy/AdvReac Type Severity Reaction Status Date / Time No Known Allergies Allergy Verified 05/01/23 06:52 Home Medications Medication Instructions Recorded Confirmed Last Taken Type antiarthritic combination no.2 900 1,200 mg PO BID 07/03/20 05/05/23 09/26/22 History mg tablet (glucosamine-chondroitin) apixaban 5 mg tablet (Eliquis) 5 mg PO BID 07/03/20 05/05/23 04/27/23 History calcium carbonate 600 mg calcium 600 mg PO BID 07/03/20 05/05/23 11/11/22 History (1,500 mg) tablet (Calcium) coenzyme Q10 400 mg capsule 400 mg PO DAILY 07/03/20 05/05/23 11/11/22 History guaifenesin 600 mg tablet, 600 mg PO BID 07/03/20 05/05/23 11/11/22 History extended release 12 hr (Mucinex) hydrochlorothiazide 25 mg tablet 25 mg PO DAILY 07/03/20 05/05/23 05/01/23 History lorazepam 0.5 mg tablet 0.5 mg PO Q6H PRN Anxiety 07/03/20 05/05/23 11/10/22 History omeprazole 20 mg capsule,delayed 20 mg PO BID 07/03/20 05/05/23 05/01/23 History release sotalol 80 mg tablet 80 mg PO BID 07/03/20 05/05/23 05/01/23 History vit 1 cap PO BID 07/03/20 05/05/23 09/26/22 History C,E,zinc,Mw-uhoui-8-lutein-zeaxanthin 250 mg-2.5 mg-0.5 mg capsule zolpidem 5 mg tablet (Ambien) 5 mg PO BEDTIME PRN Sleep 07/03/20 05/05/23 09/26/22 History potassium chloride 20 mEq 20 meq PO BEDTIME 07/18/21 05/05/23 11/10/22 History tablet,extended release(part/cryst) Oxygen Home Use 07/09/22 Unknown History alendronate 70 mg tablet 70 mg PO SA 07/09/22 05/05/23 11/10/22 History nebulizers 07/09/22 Unknown History Lactobacillus rhamnosus GG 10 1 cap PO DAILY 09/27/22 05/05/23 09/27/22 History billion cell capsule (Culturelle) magnesium oxide 400 mg PO BEDTIME 09/27/22 05/05/23 11/11/22 History potassium chloride 20 mEq 10 meq PO DAILY 09/27/22 05/05/23 11/11/22 History tablet,extended release(part/cryst) atorvastatin 40 mg tablet 40 mg PO DAILY 04/23/23 05/05/23 Unknown History acetaminophen 500 mg tablet 1,000 mg PO QID PRN Pain 05/05/23 05/05/23 Unknown History budesonide 0.5 mg/2 mL suspension 0.5 mg inhalation DAILY@1400 05/05/23 05/05/23 Unknown History for nebulization cholecalciferol (vitamin D3) 50 50 mcg PO DAILY 05/05/23 05/05/23 Unknown History mcg (2,000 unit) tablet d-mannose 500 mg capsule 1,500 mg PO BID 05/05/23 05/05/23 Unknown History ipratropium 0.5 mg-albuterol 3 mg 3 ml inhalation TID 05/05/23 05/05/23 Unknown History (2.5 mg base)/3 mL nebulization soln melatonin 5 mg tablet 5 mg PO BEDTIME 05/05/23 05/05/23 Unknown History omega 3 350 mg-dha 235 mg-epa 90 1 cap PO DAILY 05/05/23 05/05/23 Unknown History mg-fish oil 597 mg capsule,delay rel ([place]-3) ondansetron HCl 4 mg tablet 4 mg PO Q4H PRN nausea and vomiting 05/05/23 05/05/23 Unknown History polyethylene glycol 3350 17 gram 17 g PO DAILY PRN Constipation 05/05/23 05/05/23 Unknown History oral powder packet (Miralax) rifampin 300 mg capsule 300 mg PO MOWEFR 05/05/23 05/05/23 Unknown History Exam Exam Date and Time: April 30, 2023 1232 Pertinent Lab Results Pertinent Lab Results: Laboratory Tests 03/25/23 15:36 WBC 9.1 RBC 4.72 Hgb 14.6 Hct 43.0 Plt Count 325 D Sodium 135 Potassium 3.6 Chloride 97 Carbon Dioxide 27 BUN 13 Creatinine 0.66 Narrative Narrative: EKG 03/2023 Vent. Rate : 088 BPM Atrial Rate : 088 BPM P-R Int : 210 ms QRS Dur : 074 ms QT Int : 372 ms P-R-T Axes : -29 001 -07 degrees QTc Int : 450 ms Sinus rhythm with 1st degree A-V block with Premature atrial complexes Anteroseptal infarct (cited on or before 27-SEP-2022) Abnormal ECG When compared with ECG of 27-SEP-2022 12:20, Premature atrial complexes are now Present Questionable change in QRS axis CT chest wo IV con 04/2023 IMPRESSION: Severe emphysema. New heterogeneous nodular density in the anterior segment of the left upper lobe with air bronchograms, question representing a pneumonia. Neoplastic process cannot be excluded and short-term follow-up chest CT following antibiotic therapy recommended in several months. Bilateral lower lobe bronchiectasis, bronchial wall thickening and mucus plugging. Probable small pneumonia in the posterior basal segment of the right lower lobe. Innumerable scattered clustered pulmonary nodules with tree in bud appearance suggestive of airways disease. Severe atherosclerotic disease. Fleischner guidelines were followed. Assessment and Plan Final Anesthetic Review Family History of Problems with Anesthesia: No History of Problems with Anesthesia: No
[2023-05-01] VITALS (9 sets, daily range): BP systolic 132–156; BP diastolic 47–83; PULSE 74–87; RESP 18–32; TEMP 36.5–36.8; O2SAT 92–100; BMI 22.4
[2023-05-01] MEDS: Lactated Ringers 1,000 ML 100 ML IVCONT (07:11)
--- NOTE | 2023-05-01 07:42 | HO.ANESPROP2 ---
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 (Acute) Pulmonary nodules (Acute) COPD (chronic obstructive pulmonary disease) (Acute) COPD (chronic obstructive pulmonary disease) (Acute) Bronchiectasis (Acute) Past Medical History Medical History Lung mass Pneumonitis Nontuberculous mycobacterial disease of lung GERD (gastroesophageal reflux disease) History of diverticulitis Hyperlipidemia HTN (hypertension) Anxiety Supplemental oxygen dependent On anticoagulant therapy Pneumonia Afib 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 Pulmonary nodules COPD (chronic obstructive pulmonary disease) Bronchiectasis Functional capacity: independent ambulation Patient : No Family History Family history of problems with anesthesia: No Surgical History Surgical History Hx of colonoscopy History of bronchoscopy History of appendectomy History of Problems with Anesthesia: No Social History Social History Household Members: Other Household Members Other:: alone [facility] Are you a primary child adolescent care to a significant other at home: No Do you presently have visiting nurse or other home services: No Alcohol intake: never Patient Tobacco Use Status: Never used Tobacco Tobacco use type: Cigarette Years Smoked: 35 Use of substances other than those prescribed or required for medical reasons: No Are you DNR?: Yes Advance Directives: No Advance Directives Information Provided: Yes Advance Directives Date on File: 01/31/22 service: No Current occupational status: retired Meds Allergies Allergy/AdvReac Type Severity Reaction Status Date / Time No Known Allergies Allergy Verified 05/01/23 06:52 Active Medications: Current Medications Lactated Ringer's (Lr) 1,000 mls @ 100 mls/hr IVCONT .Q10H APPLE Last Admin: 05/01/23 07:11 Dose: 100 mls/hr Home Medications Medication Instructions Recorded Confirmed Last Taken Type antiarthritic combination no.2 900 1,200 mg PO BID 07/03/20 05/01/23 09/26/22 History mg tablet (glucosamine-chondroitin) apixaban 5 mg tablet (Eliquis) 5 mg PO BID 07/03/20 05/01/23 04/27/23 History calcium carbonate 600 mg calcium 600 mg PO DAILY 07/03/20 05/01/23 11/11/22 History (1,500 mg) tablet (Calcium) coenzyme Q10 400 mg capsule 400 mg PO DAILY 07/03/20 05/01/23 11/11/22 History guaifenesin 600 mg tablet, 600 mg PO BID 07/03/20 05/01/23 11/11/22 History extended release 12 hr (Mucinex) hydrochlorothiazide 25 mg tablet 25 mg PO DAILY 07/03/20 05/01/23 05/01/23 History lorazepam 0.5 mg tablet 0.5 mg PO BEDTIME PRN Sleep 07/03/20 05/01/23 11/10/22 History omeprazole 20 mg capsule,delayed 20 mg PO BID 07/03/20 05/01/23 05/01/23 History release sotalol 80 mg tablet 80 mg PO BID 07/03/20 05/01/23 05/01/23 History vit 1 cap PO BID 07/03/20 05/01/23 09/26/22 History C,E,zinc,Yb-fivul-2-lutein-zeaxanthin 250 mg-2.5 mg-0.5 mg capsule zolpidem 5 mg tablet (Ambien) 5 mg PO BEDTIME PRN Sleep 07/03/20 05/01/23 09/26/22 History potassium chloride 20 mEq 20 meq PO BEDTIME 07/18/21 05/01/23 11/10/22 History tablet,extended release(part/cryst) Oxygen Home Use 07/09/22 Unknown History alendronate 70 mg tablet 70 mg PO CLEMENTS 07/09/22 05/01/23 11/10/22 History nebulizers 07/09/22 Unknown History Lactobacillus rhamnosus GG 10 1 cap PO DAILY 09/27/22 05/01/23 09/27/22 History billion cell capsule (Culturelle) magnesium oxide 400 mg PO DAILY 09/27/22 05/01/23 11/11/22 History potassium chloride 20 mEq 10 meq PO DAILY 09/27/22 05/01/23 11/11/22 History tablet,extended release(part/cryst) fluticasone 500 mcg-salmeterol 50 1 ea inhalation BID 11/11/22 05/01/23 11/11/22 History mcg/dose blistr powdr for inhalation (Wixela Inhub) atorvastatin 40 mg tablet 40 mg PO DAILY 04/23/23 05/01/23 Unknown History Exam Exam Date and Time: May 01, 2023 0742 Height,Weight and Vital Signs: Height 5 ft 6 in Weight 63 kg Last Vital Signs Temp 98.1 F 05/01/23 07:09 Pulse 75 05/01/23 07:09 Resp 18 05/01/23 07:09 BP 132/55 L 05/01/23 07:09 Pulse Ox 98 05/01/23 07:09 O2 Del Method Nasal Cannula 05/01/23 07:09 O2 Flow Rate 2 05/01/23 07:09 Airway Mallampati Class: III TM Dist: >3cm Neck ROM: Full Heart: RRR Lungs: CTA Assessment and Plan Assessment Anesthesia Assessment: Anesthesia Plan Discussed Final Anesthetic Review Family History of Problems with Anesthesia: No History of Problems with Anesthesia: No ASA Class: III Final Preanesthetic Review: Meds/Allgs Chart Reviewed, Consent Obtained/Reviewed and Anes Risks/Benef Reviewed Patient Risk: Low Procedure Risk: Low Anesthetic Plan Anesthetic Plan: GA Disposition: Standard PACU
[2023-05-01] MEDS: Albuterol Sulfate (0.083%) 2.5 MG/3 ML VIAL.NEB INHALE (07:46)
--- NOTE | 2023-05-01 07:52 | MHC.SHP ---
Pre-Procedural Eval Section A Date of Service: 05/01/23 The patient is an INPATIENT: No Changes since office visit: No Cold of Flu in the past 2 weeks, No New Medical Problems, No Changes in Medication and No Patient answered all questions The History & Physical has been completed within 30 days and I have reviewed it.: Yes Section B Chief Complaint: Pneumonia, unspecified organism Allergies: Allergies Allergy/AdvReac Type Severity Reaction Status Date / Time No Known Allergies Allergy Verified 05/01/23 06:52 Plan I have reviewed the history and physical and performed a pertinent physical examination on my patient. No changes have occurred unless specified. Time Spent With Patient Time: Total time managing care of this patient today ____ minutes.
--- NOTE | 2023-05-01 09:03 | P.BOP_ITS ---
Brief Operative Note Date of Service: 05/01/23 Pre-op diagnosis: pneumonia, lung density Post-op diagnosis: same Procedure: Bronchoscopy with therapeutic suctiong, brushings, washings and biopsies Implants: Surgeon: Dominick Brown MD Anesthesia: GETA Was an Political Consultant used for this Procedure?: No Estimated blood loss (mL): 1 Pathology: other (BANDAR) Condition: stable Disposition: same day
--- NOTE | 2023-05-01 09:18 | HO.POSTANES ---
Post Anesthesia Evaluation Post Anesthesia Evaluation Date of Service: 05/01/23 Vital Signs: Vital Signs Temp Pulse Resp BP Pulse Ox O2 Del Method O2 Flow Rate 05/01/23 09:06 87 24 H 156/57 H 99 Humidified O2, Shovel Mask 8 05/01/23 09:01 85 24 H 152/67 H 99 Humidified O2, Shovel Mask 8 05/01/23 08:56 84 28 H 149/63 H 100 Humidified O2, Shovel Mask 8 05/01/23 08:51 97.7 F 86 32 H 154/83 H 98 Humidified O2, Shovel Mask 10 05/01/23 07:46 74 18 05/01/23 07:09 98.1 F 75 18 132/55 L 98 Nasal Cannula 2 FiO2 05/01/23 09:06 35 05/01/23 09:01 35 05/01/23 08:56 35 05/01/23 08:51 98 05/01/23 07:46 05/01/23 07:09 Anesthesia: General Endotracheal-GETA Mental Status: Awake Pain Control: Satisfactory Nausea/Vomiting: None Hydration: Adequate Anesthesia-Related Issues: No Anes. Related Issues
--- NOTE | 2023-05-06 09:55 | OP_ITS ---
DATE OF SERVICE: 05/01/2023 SURGEON: Dominick Brown MD PREOPERATIVE DIAGNOSIS: Lung density pneumonia. POSTOPERATIVE DIAGNOSIS: Lung density pneumonia and bronchiectasis exacerbation. PROCEDURE PERFORMED: Bronchoscopy with therapeutic suctioning, brushings, washings, and biopsies. ESTIMATED BLOOD LOSS: COMPLICATIONS: ANESTHESIA: General endotracheal anesthesia took place. ASSISTANTS: None. SPECIMENS: DESCRIPTION OF PROCEDURE: After the patient was adequately sedated, a flexible digital bronchoscope was inserted via ET tube to the level of the main rosenda. Extensive purulent secretions throughout the airways. The bronchoscope was navigated to the entire tracheobronchial tree. The patient did have some irregular looking mucosa in the left upper lobe area with some inflammation along with significant purulent secretions. This was suggestive of an infectious process. Less likely malignancy. Using some brushings introduced into left upper lower for both microbiology and cytology. Therapeutic suctioning was done throughout. Cleaned out all the significant purulent secretions. Lung sounds difficult to . Better visualization of the left upper lobe took place preceding the inflammatory changes. Therefore using forceps, endobronchial biopsies were collected from the left upper lobe and sent in formalin. Half an ampule of epinephrine was used with good hemostasis. The bronchoscope was then removed. The total endoscopic time was approximately 10 minutes. Patient tolerated the procedure well. Vital signs were stable throughout the procedure. No apparent complications. Estimated blood loss 1 mL and no complications were noted. And interventions took place: 1. Left upper lobe endobronchial biopsies. 2. Two brushes to the left upper lobe, both for cytology and microbiology. 3. Therapeutic suctioning of the airways. MD SAUD Garcia/JOVITA / [phone]
== END 2023-05-01 10:41 | disposition home or self-care (01) ==
PROVIDERS: PCP Internal Medicine; Visit Provider Hospitalist
PROC: 0BJ08ZZ Inspection of Tracheobronchial Tree, Via Natural or Artificial Opening Endoscopic (ICD-10-PCS; CPT 31622; principal; 2023-05-01 08:00)
DX: J18.9 Pneumonia, unspecified organism (principal); J47.1 Bronchiectasis with (acute) exacerbation; J41.1 Mucopurulent chronic bronchitis; A31.0 Pulmonary mycobacterial infection; J98.8 Other specified respiratory disorders; B96.5 Pseudomonas (aeruginosa) (mallei) (pseudomallei) as the cause of diseases classified elsewhere; R91.8 Other nonspecific abnormal finding of lung field; I10 Essential (primary) hypertension; I48.91 Unspecified atrial fibrillation; K21.9 Gastro-esophageal reflux disease without esophagitis; F41.9 Anxiety disorder, unspecified; Z99.81 Dependence on supplemental oxygen; Z79.01 Long term (current) use of anticoagulants; Z79.899 Other long term (current) drug therapy; Z87.891 Personal history of nicotine dependence
CPT/HCPCS: 31645; 31625; 31623; 87070; 87077; 87102; 87116; 87186; 87205; 87206; 88112; 88305; J0171; J1100; J2250; J2405; J2704; J3010

== ENCOUNTER → 2023-05-01 06:19 | Outpatient (BNV) | payer MEDICARE, SELFPAY | PROVIDERS: PCP Internal Medicine; Visit Provider Hospitalist | DX: J18.9 Pneumonia, unspecified organism (principal); R91.8 Other nonspecific abnormal finding of lung field | CPT/HCPCS: 31623; 31625; 31645 ==

== ENCOUNTER 2023-05-05 13:54 | Inpatient (IN) | payer MEDICARE, SELFPAY ==
--- NOTE | 2023-05-05 | ECG_ITS ---
Test Reason : [id number] Blood Pressure : / mmHG Vent. Rate : 094 BPM Atrial Rate : 094 BPM P-R Int : 210 ms QRS Dur : 086 ms QT Int : 362 ms P-R-T Axes : 083 062 056 degrees QTc Int : 452 ms Sinus rhythm with 1st degree A-V block Possible Left atrial enlargement Abnormal ECG When compared with ECG of 25-MAR-2023 12:04, Premature atrial complexes are no longer Present Questionable change in QRS axis T wave inversion no longer evident in Inferior leads Referred By: Larisa Paulino Electronically Signed By:BRYAN SUAZO MD
--- NOTE | ~2023-05-05 | XR_ITS ---
EXAMINATION: XR CHEST CLINICAL INFORMATION: Pneumonia. COMPARISON: Chest x-ray 03/25/2023 TECHNIQUE: Frontal view of the chest was obtained. FINDINGS: The lungs are hyperinflated but clear of acute process. There is atelectasis/infiltrate changes in both lung bases. The heart size and pulmonary vascularity is normal. No gross bony abnormality seen. There is mild spondylosis mid dorsal spine. XR/XR chest 1V IMPRESSION: Hyperinflated lungs with bibasilar atelectasis/infiltrate.
--- NOTE | 2023-05-05 14:09 | ED.GENADULT ---
HPI - General Adult General Chief complaint: Recheck/Abnormal Lab/Rx Stated complaint: pos blood cultures Time Seen by Provider: 05/05/23 14:37 Source: patient Mode of arrival: ambulatory Limitations: no limitations History of Present Illness HPI narrative: This is 82 years old female with history of COPD O2 dependent and history of bronchiectasis sent by the training designer for admission, she did have a bronchoscopy with the result of acromobacter and Filamentous fungus. Dr Brown request admission with IV meropenem. Patient as sujective feeling of fever,she is coughing Onset (ago): day(s) (4) Radiation: non-radiation Severity: moderate Pain Consistency: constant Relieving factors: none Exacerbating factors: none Associated symptoms: denies other symptoms Related Data Home Medications Medication Instructions Recorded Confirmed antiarthritic combination no.2 900 1,200 mg PO BID 07/03/20 05/01/23 mg tablet (glucosamine-chondroitin) apixaban 5 mg tablet (Eliquis) 5 mg PO BID 07/03/20 05/01/23 calcium carbonate 600 mg calcium 600 mg PO DAILY 07/03/20 05/01/23 (1,500 mg) tablet (Calcium) coenzyme Q10 400 mg capsule 400 mg PO DAILY 07/03/20 05/01/23 guaifenesin 600 mg tablet, 600 mg PO BID 07/03/20 05/01/23 extended release 12 hr (Mucinex) hydrochlorothiazide 25 mg tablet 25 mg PO DAILY 07/03/20 05/01/23 lorazepam 0.5 mg tablet 0.5 mg PO BEDTIME PRN Sleep 07/03/20 05/01/23 omeprazole 20 mg capsule,delayed 20 mg PO BID 07/03/20 05/01/23 release sotalol 80 mg tablet 80 mg PO BID 07/03/20 05/01/23 vit 1 cap PO BID 07/03/20 05/01/23 C,E,zinc,Oz-thsqh-1-lutein-zeaxanthin 250 mg-2.5 mg-0.5 mg capsule zolpidem 5 mg tablet (Ambien) 5 mg PO BEDTIME PRN Sleep 07/03/20 05/01/23 potassium chloride 20 mEq 20 meq PO BEDTIME 07/18/21 05/01/23 tablet,extended release(part/cryst) Oxygen Home Use 07/09/22 alendronate 70 mg tablet 70 mg PO CLEMENTS 07/09/22 05/05/23 nebulizers 07/09/22 Lactobacillus rhamnosus GG 10 1 cap PO DAILY 09/27/22 05/01/23 billion cell capsule (Culturelle) magnesium oxide 400 mg PO DAILY 09/27/22 05/01/23 potassium chloride 20 mEq 10 meq PO DAILY 09/27/22 05/01/23 tablet,extended release(part/cryst) fluticasone 500 mcg-salmeterol 50 1 ea inhalation BID 11/11/22 05/01/23 mcg/dose blistr powdr for inhalation (Remy Inhub) atorvastatin 40 mg tablet 40 mg PO DAILY 04/23/23 05/01/23 Previous Rx's Medication Instructions Recorded sodium chloride 7 % for 4 ml inhalation BID #240 mL 05/27/22 nebulization albuterol sulfate 90 mcg/actuation 2 puff PO Q6H PRN for wheezing #34 10/22/22 aerosol inhaler grams ondansetron HCl 4 mg tablet 4 mg PO DAILY PRN nausea and 11/06/22 vomiting #5 tabs tobramycin 300 mg/5 mL in 0.225 % 300 mg (5 mL) inhalation BID 28 11/28/22 sodium chloride for nebulization days #280 mL (Avtar) rifampin 300 mg capsule 300 mg PO 3XW 28 days #12 caps 01/13/23 budesonide 0.5 mg/2 mL suspension 0.5 mg (2 mL) inhalation BID #60 mL 03/03/23 for nebulization ipratropium 0.5 mg-albuterol 3 mg 3 ml inhalation QID #120 ea 03/03/23 (2.5 mg base)/3 mL nebulization soln fluticasone fur. 200 mcg-umeclid 1 ea inhalation DAILY 30 days #60 04/14/23 62.5 mcg-vilant 25 mcg ea inhalat.powder (Trelegy Ellipta) Allergies Allergy/AdvReac Type Severity Reaction Status Date / Time No Known Allergies Allergy Verified 05/01/23 06:52 Review of Systems Constitutional: Constitutional: Reports no additional constitutional complaints ENT: Reports system reviewed and no additional complaints, except as documented Cardiovascular: Cardiovascular: Reports no additional cardiovascular complaints Respiratory: Respiratory: Reports excessive phlegm production PMFSH Past Medical History Medical History (Updated 05/05/23 @ 16:16 by Bhavani Brown NP) Lung mass Pneumonitis Nontuberculous mycobacterial disease of lung GERD (gastroesophageal reflux disease) History of diverticulitis Hyperlipidemia HTN (hypertension) Anxiety Supplemental oxygen dependent Pneumonia Afib 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 Pulmonary nodules COPD (chronic obstructive pulmonary disease) Bronchiectasis Surgical History Hx of colonoscopy History of bronchoscopy History of appendectomy Social History Social History Household Members: Other Household Members Other:: alone Housing: Condominium Are you a primary pharmacy care coordinator to a significant other at home: No Do you presently have visiting nurse or other home services: No Alcohol intake: never Patient Tobacco Use Status: Former Tobacco user Quit Date: 1998 Tobacco use type: Cigarette Years Smoked: 35 Smoked in Last 30 Days: No Use of substances other than those prescribed or required for medical reasons: No Advance Directives: Yes Advance Directives on File: Yes Advance Directives Date on File: 01/31/22 Nutrition Risks: No Nutritional Risk service: No Current occupational status: retired Physical Exam ED Vital Signs: Vital Signs - 24 hr 05/05/23 14:10 05/05/23 14:40 Temperature 98.6 F Pulse Rate 100 105 H Respiratory Rate 24 H 18 Blood Pressure 146/83 H 185/73 H Pulse Oximetry 92 93 Oxygen Delivery Method Nasal Cannula Nasal Cannula Oxygen Flow Rate 2 BMI result Body Mass Index 22.3 Const General: cooperative Nutritional Appearance: well nourished Limitations: no limitations [facility] Head: Yes normal to inspection Face and sinus: Yes normal facial exam Neck Neck: Yes normal visual inspection and Yes full ROM Chest Chest palpation & inspection: normal inspection of the chest Resp Effort & Inspection: normal respiratory effort Auscultation: rhonchi Cardio Jugular venous distension: no JVD Rate: regular rate Rhythm: regular rhythm GI Inspection: Yes normal to inspection Palpation (GI): Soft to palpation, nontender and no guarding Percussion: Yes normal to percussion Skin General skin exam: no rashes or lesions noted Lesions: no lesions Rashes: no rashes Extrem General: Yes normal to inspection Right upper extremity: normal to inspection Course Course Course Narrative: RME performed by Basilia Herring PA-C. Patient is an 82 year old assigned female at presenting to the emergency department with COPD on 2 liters of oxygen chronically and has recent pneumonia. Patient was bronched by Dr. Brown the training designer who called and informed that the patient's lung cultures are positive for achromobacter and fungus. Labs ordered. Patient placed back in the waiting room pending room availability and results. Medications Administered Discontinued Medications Generic Name Dose Route Start Last Admin Trade Name Freq PRN Reason Stop Dose Admin Meropenem 1 gm/ Sodium 100 mls @ 200 mls/hr 05/05/23 14:11 05/05/23 16:21 Chloride IV 05/05/23 14:40 Infused ONCE ONE Infusion Medical Decision Making Medical Decision Making [facility] Narrative: Pt was sent by the pulmonology for admission for IV AB,hx of bronchiectaisis Differential Diagnosis Differential Diagnoses: The differential diagnosis associated with the presentation includes pneumonia/infected bronchiectasis Admission/Observation Consideration of admission/observation: Escalation of care including admission/observation considered Consult Healthcare Provider Management of the patient was discussed with: Hospitalist Lab Data [facility] Lab Attestation statement: I reviewed the patient's lab results. 05/05/23 14:49 05/05/23 14:49 Labs: Lab Results 05/05/23 05/05/23 Range/Units 14:49 15:30 WBC 10.4 (4.8-10.8) X10*3/uL RBC 4.56 (4.20-5.50) X10*6/uL Hgb 14.0 (12.0-16.0) g/dl Hct 41.4 (37.0-47.0) % MCV 90.8 (80.0-98.0) fL MCH 30.7 (27.0-33.0) pg MCHC 33.8 (31.0-35.0) g/dl RDW 13.4 (11.0-16.0) % Plt Count 440 H D (160-400) X10*3/uL MPV 8.5 L (9.4-12.3) fL Immature Gran % (Auto) 0.8 H (0.0-0.4) % Neut % (Auto) 62.4 (45-73) % Lymph % (Auto) 23.2 (20-40) % [place] % (Auto) 12.0 H (2-11) % Eos % (Auto) 1.2 (0-4) % Baso % (Auto) 0.4 (0-2) % Lymph # (Auto) 2.4 (1.2-4.9) X10*3/uL [place] # (Auto) 1.3 H (0.1-1.2) X10*3/uL Eos # (Auto) 0.1 (0.0-0.4) X10*3/uL Baso # (Auto) 0.0 (0.0-0.2) X10*3/uL Abs Immat Gran (auto) 0.08 H (0.00-0.03) X10*3/uL Absolute Neuts (auto) 6.5 (2.0-8.3) x10*3/uL Absolute Nucleated RBC 0.000 (0.0-0.012) X10*3/uL Nucleated RBC % (auto) 0.0 (0.0-0.2) /100WBC Sodium 131 L (135-145) mmol/L Potassium 3.8 (3.3-5.1) mmol/L Chloride 92 L (96-108) mmol/L Carbon Dioxide 30 H (22-29) mmol/L Anion Gap 13 (12-20) BUN 14 (9-16) mg/dL Creatinine 0.67 (0.5-1.4) mg/dL Estim Creat Clear Calc 61.6 Estimated GFR > 60 Random Glucose 115 (60-115) mg/dL Lactic Acid 0.9 (0.5-2.0) mmol/L Calcium 10.2 (8.4-10.2) mg/dL Magnesium 1.9 (1.6-2.6) mg/dL Total Bilirubin 0.5 (0.0-1.0) mg/dL AST 17 (5-31) U/L ALT 13 (0-31) U/L Alkaline Phosphatase 63 (39-117) U/L Total Protein 7.9 (6.5-8.0) g/dL Albumin 4.0 (3.5-5.0) g/dL Urine Color Yellow Urine Appearance Clear Urine pH 5.0 (5.0-9.0) Ur Specific [place] 1.010 (1.005-1.025) Urine Protein Negative (Neg-Trace) mg/dL Urine Glucose (UA) Negative (Negative) mg/dL Urine Ketones Negative (Negative) mg/dL Urine Blood Negative (Negative) Urine Nitrite Negative (Negative) Ur Leukocyte Esterase Negative (Negative) Independent Historian Clinical information obtained from an independent historian. History obtained from or confirmed by: Other (daughter) Discharge Plan Discharge Clinical Impression: Bronchiectasis Patient Disposition: Admitted As Inpatient
[2023-05-05 14:10] VITALS: BP 146/83; PULSE 100; RESP 24; TEMP 37; O2SAT 92; BMI 22.3
[2023-05-05 14:40] VITALS: BP 185/73; PULSE 105; RESP 18; O2SAT 93
[2023-05-05 14:57] LABS: MANUAL DIFF FLAG NO
[2023-05-05 14:58] LABS: Basophils Percent Auto 0.4 % (0-2); Eosinophils Absolute Auto 0.1 X10*3/uL (0.0-0.4); Eosinophils Percent Auto 1.2 % (0-4); Hematocrit 41.4 % (37.0-47.0); Imm Gran Abs Auto 0.08 X10*3/uL (0.00-0.03); Imm Gran Pct Auto 0.8 % (0.0-0.4); Lymphocytes Absolute Auto 2.4 X10*3/uL (1.2-4.9); Lymphocytes Percent Auto 23.2 % (20-40); Mean Corpuscular HGB Conc 33.8 g/dl (31.0-35.0); Mean Corpuscular Hemoglobin 30.7 pg (27.0-33.0); Mean Corpuscular Volume 90.8 fL (80.0-98.0); Mean Platelet Volume 8.5 fL (9.4-12.3); Monocytes Absolute Auto 1.3 X10*3/uL (0.1-1.2); Neutrophils Absolute Auto 6.5 x10*3/uL (2.0-8.3); Neutrophils Percent Auto 62.4 % (45-73); Platelet Count 440 X10*3/uL (160-400); Red Blood Count 4.56 X10*6/uL (4.20-5.50); Red Cell Distribution Width 13.4 % (11.0-16.0); White Blood Count 10.4 X10*3/uL (4.8-10.8)
[2023-05-05 15:11] LABS: Lactic Acid 0.9 mmol/L (0.5-2.0)
[2023-05-05 15:15] LABS: Alanine Aminotransferase 13 U/L (0-31); Alkaline Phosphatase 63 U/L (39-117); Anion Gap 13 (12-20); Aspartate Amino Transferase 17 U/L (5-31); Bilirubin Total 0.5 mg/dL (0.0-1.0); Blood Urea Nitrogen 14 mg/dL (9-16); Calcium 10.2 mg/dL (8.4-10.2); Carbon Dioxide 30 mmol/L (22-29); Chloride 92 mmol/L (96-108); Creatinine Clr Calc Pharmacy 61.6; Estimated Glomerular Filt Rate > 60; Glucose Random 115 mg/dL (60-115); Magnesium 1.9 mg/dL (1.6-2.6); Potassium 3.8 mmol/L (3.3-5.1); Sodium 131 mmol/L (135-145); Total Protein 7.9 g/dL (6.5-8.0)
[2023-05-05 15:41] LABS: Appearance Urine Clear; Color Urine Yellow; Glucose Urine UA Negative (Negative); Leukocyte Esterase Urine Negative (Negative); Nitrite Urine Negative (Negative); Urine Blood Negative (Negative); Urine Ketones Negative (Negative); Urine Protein Negative (Neg-Trace)
[2023-05-05 16:08] VITALS: BP 130/66; PULSE 92; RESP 16; TEMP 37; O2SAT 93
--- NOTE | 2023-05-05 16:13 | P.HPHOSP_ITS ---
<Statement entered by Rebecca Gant MD - 05/06/23 14:46> The patient was seen and evaluated with Bhavain Brown NP. I agree with her note, assessment and plan with the following. In summary, An 82 years old lady w hx of bronchiectases referred from [facility] office for acute on chronic episode requiring long-term IV antibiotics and midline placement start meropenem 1g Q8H plan is for midline for 21 days Rest of evaluations by C[facility] JELLY note. History of Present Illness Date of Service: 05/05/23 Chief Complaint: bronchiectases 82-year-old woman with history of bronchiectases and COPD presented to the ER with complaints of worsening shortness of breath and bronchoscopy results with sent to the ER by her line up machine operator for IV antibiotics and plan to place midline for 21 days of antibiotics acromobacter and Filamentous fungus. patient denies fever, chills, nausea, vomiting, diarrhea however her line up machine operator requests chin patient to be admitted for IV antibiotics and plan for Midline placement for long-term antibiotics. In the ER, she has not noted to have fever, leukocytosis, elevated blood pressure noted and mild tachycardia. In the ER, she was given a dose of meropenem. She will be admitted for further management and treatment of acute bronchiectases. Review of Systems 2 Review of Systems: Denies any recent fever chills or decrease in appetite respiratory see HPI cardiovascular denied chest pain gastrointestinal denies any dysphagia abdominal pain nausea vomiting or diarrhea genitourinary denies any dysuria frequency or hematuria musculoskeletal denies any joint pain or swelling neuropsych denies any weakness or seizures all other systems reviewed are negative [facility] Medical History (Updated 05/05/23 @ 16:16 by Bhavani Brown NP) Lung mass Pneumonitis Nontuberculous mycobacterial disease of lung GERD (gastroesophageal reflux disease) History of diverticulitis Hyperlipidemia HTN (hypertension) Anxiety Supplemental oxygen dependent Pneumonia Afib 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 Pulmonary nodules COPD (chronic obstructive pulmonary disease) Bronchiectasis Surgical History Hx of colonoscopy History of bronchoscopy History of appendectomy Social History Household Members: Other Household Members Other:: alone Housing: Condominium Are you a primary director medicare sales to a significant other at home: No Do you presently have visiting nurse or other home services: No Alcohol intake: never Patient Tobacco Use Status: Former Tobacco user Quit Date: 1998 Tobacco use type: Cigarette Years Smoked: 35 Advance Directives Date on File: 01/31/22 service: No Current occupational status: retired Meds Allergies Allergy/AdvReac Type Severity Reaction Status Date / Time No Known Allergies Allergy Verified 05/01/23 06:52 Active Medications: Current Medications Acetaminophen (Acetaminophen 325 Mg Tablet) 650 mg PO Q6H PRN PRN Reason: Pain, Mild (Pain Scale 1-3) Albuterol Sulfate (Albuterol Sulfate (0.083%) 2.5 Mg/3 Ml Vial.Neb) 2.5 mg INHALE Q4H PRN PRN Reason: Wheezing Heparin Sodium (Porcine) (Heparin Sodium,Porcine 5,000 Unit/Ml Vial) 5,000 unit SUBCUT Q12H APPLE Meropenem 1 gm/ Sodium (Chloride) 100 mls @ 200 mls/hr IV Q8H APPLE Ondansetron HCl (Ondansetron Hcl 4 Mg/2 Ml Vial) 4 mg IVPUSH Q8H PRN PRN Reason: Nausea and Vomiting Sodium Chloride (0.9 % Sodium Chloride Flush 3 Ml Syringe) 3 ml IVFLUSH QSHIFT APPLE Home Medications Medication Instructions Recorded Confirmed Last Taken Type antiarthritic combination no.2 900 1,200 mg PO BID 07/03/20 05/01/23 09/26/22 History mg tablet (glucosamine-chondroitin) apixaban 5 mg tablet (Eliquis) 5 mg PO BID 07/03/20 05/01/23 04/27/23 History calcium carbonate 600 mg calcium 600 mg PO DAILY 07/03/20 05/01/23 11/11/22 History (1,500 mg) tablet (Calcium) coenzyme Q10 400 mg capsule 400 mg PO DAILY 07/03/20 05/01/23 11/11/22 History guaifenesin 600 mg tablet, 600 mg PO BID 07/03/20 05/01/23 11/11/22 History extended release 12 hr (Mucinex) hydrochlorothiazide 25 mg tablet 25 mg PO DAILY 07/03/20 05/01/23 05/01/23 History lorazepam 0.5 mg tablet 0.5 mg PO BEDTIME PRN Sleep 07/03/20 05/01/23 11/10/22 History omeprazole 20 mg capsule,delayed 20 mg PO BID 07/03/20 05/01/23 05/01/23 History release sotalol 80 mg tablet 80 mg PO BID 07/03/20 05/01/23 05/01/23 History vit 1 cap PO BID 07/03/20 05/01/23 09/26/22 History C,E,zinc,Nm-aqvra-9-lutein-zeaxanthin 250 mg-2.5 mg-0.5 mg capsule zolpidem 5 mg tablet (Ambien) 5 mg PO BEDTIME PRN Sleep 07/03/20 05/01/23 09/26/22 History potassium chloride 20 mEq 20 meq PO BEDTIME 07/18/21 05/01/23 11/10/22 History tablet,extended release(part/cryst) Oxygen Home Use 07/09/22 Unknown History alendronate 70 mg tablet 70 mg PO CLEMENTS 07/09/22 05/05/23 11/10/22 History nebulizers 07/09/22 Unknown History Lactobacillus rhamnosus GG 10 1 cap PO DAILY 09/27/22 05/01/23 09/27/22 History billion cell capsule (Culturelle) magnesium oxide 400 mg PO DAILY 09/27/22 05/01/23 11/11/22 History potassium chloride 20 mEq 10 meq PO DAILY 09/27/22 05/01/23 11/11/22 History tablet,extended release(part/cryst) fluticasone 500 mcg-salmeterol 50 1 ea inhalation BID 11/11/22 05/01/23 11/11/22 History mcg/dose blistr powdr for inhalation (Wixela Inhub) atorvastatin 40 mg tablet 40 mg PO DAILY 04/23/23 05/01/23 Unknown History Physical Exam 2 Vital Signs and Narrative: Vital Signs: Last Vital Signs Temp 98.6 F 05/05/23 14:10 Pulse 105 H 05/05/23 14:40 Resp 18 05/05/23 14:40 BP 185/73 H 05/05/23 14:40 Pulse Ox 93 05/05/23 14:40 O2 Del Method Nasal Cannula 05/05/23 14:40 O2 Flow Rate 2 05/05/23 14:40 Oxygen Flow Rate 2 05/05/23 14:10 BMI result Body Mass Index 22.3 Appearing in no acute distress head is normocephalic atraumatic eyes pupils are PERRLA sclera is anicteric mouth throat mucous membranes are intact and moist neck is supple no lymphadenopathy, no JVD noted lung sounds diminished heart regular rate rhythm, clear S1, S2 positive bowel sounds, abdomen is soft, nontender neuro patient is alert x3, no focal deficits Results Labs 05/05/23 14:49 05/05/23 14:49 Labs: Laboratory Results - last 24 hr 05/05/23 05/05/23 14:49 15:30 MCV 90.8 MCH 30.7 MCHC 33.8 RDW 13.4 Plt Count 440 H D MPV 8.5 L Immature Gran % (Auto) 0.8 H Neut % (Auto) 62.4 Lymph % (Auto) 23.2 [place] % (Auto) 12.0 H Eos % (Auto) 1.2 Baso % (Auto) 0.4 Lymph # (Auto) 2.4 [place] # (Auto) 1.3 H Eos # (Auto) 0.1 Baso # (Auto) 0.0 Abs Immat Gran (auto) 0.08 H Absolute Neuts (auto) 6.5 Absolute Nucleated RBC 0.000 Nucleated RBC % (auto) 0.0 Anion Gap 13 Estim Creat Clear Calc 61.6 Estimated GFR > 60 Random Glucose 115 Lactic Acid 0.9 Calcium 10.2 Magnesium 1.9 Total Bilirubin 0.5 AST 17 ALT 13 Alkaline Phosphatase 63 Total Protein 7.9 Albumin 4.0 Urine Color Yellow Urine Appearance Clear Urine pH 5.0 Ur Specific [place] 1.010 Urine Protein Negative Urine Glucose (UA) Negative Urine Ketones Negative Urine Blood Negative Urine Nitrite Negative Ur Leukocyte Esterase Negative Assessment and Plan (1) Pseudomonas respiratory infection: Status: Acute (2) Exacerbation of bronchiectasis due to infection: Status: Acute Plan 82-year-old woman with history of bronchiectases admitted with acute on chronic episode requiring long-term IV antibiotics and midline placement Bronchiectases exacerbation Recent bronchoscopy with bronchial washing showing achromobacter only susceptible to meropenem on chronic home oxygen No sepsis Will start meropenem 1g Q8H Albuterol as needed Followed by Dr. Dominick Brown, pulmonology plan is for midline for 21 days Blood cultures pending Acute Bronchial pneumonia hypoxia mostly with ambulation meropenem as above Hyponatremia Mild Follow BMP Atrial fibrillation No exacerbation Continue sotalol, hold Eliquis in light of plan for midline Hypertension Elevated blood pressure Continue home medications Hyperlipidemia Continue statin Mental health Continue medications GERD Continue PPI DVT prophylaxis with full-dose Lovenox in light of plan for midline placement DNR/ DNI Patient will require to inpatient midnights for treatment of acute bronchiectases requiring long-term antibiotics and the necessity for a midline catheter that will require negative blood cultures that may take 24-72 hours to finalize Quality Stroke Does the patient have a stroke diagnosis?: No VTE Prior VTE?: No VTE Risk Level:: Medical - moderate - high VTE Device Contraindication: Treatment Not Indicated VTE Drug Contraindication: N/A - Med Ordered
--- NOTE | 2023-05-05 16:41 | PHA.MEDREC ---
Pharmacy Consult ? Medication Reconciliation Pharmacy has completed the medication reconciliation. Patient has list of medications with her, reported she updated it prior to coming. Reports tobramycin nebulizer is 28 days on and 28 off, and she need 3 more doses this cycle. Judith Moreira ,PharmD
[2023-05-05 17:56] LABS: Hematocrit 38.1 % (37.0-47.0); Hemoglobin 12.9 g/dl (12.0-16.0); Mean Corpuscular HGB Conc 33.9 g/dl (31.0-35.0); Mean Corpuscular Hemoglobin 30.6 pg (27.0-33.0); Mean Corpuscular Volume 90.5 fL (80.0-98.0); Mean Platelet Volume 8.7 fL (9.4-12.3); Platelet Count 413 X10*3/uL (160-400); Red Blood Count 4.21 X10*6/uL (4.20-5.50); Red Cell Distribution Width 13.4 % (11.0-16.0); White Blood Count 10.4 X10*3/uL (4.8-10.8)
[2023-05-05 18:00] VITALS: BP 142/53; PULSE 93; RESP 16; TEMP 36.4; O2SAT 94
[2023-05-05 18:03] LABS: INTERNATIONAL NORM RATIO 1.1 (0.9-1.1); Prothrombin Time 13.2 SEC (11.1-13.3)
[2023-05-05] MEDS: Albuterol Sulfate (0.083%) 2.5 MG/3 ML VIAL.NEB INHALE ×2 (19:36→23:39)
[2023-05-05 20:48] VITALS: BP 149/63; PULSE 61; RESP 16; TEMP 36.2; O2SAT 94
[2023-05-05] MEDS: Acetaminophen 325 MG TABLET 650 MG PO (21:12)
[2023-05-05] MEDS: LORazepam 0.5 MG TABLET PO (21:53)
[2023-05-05] MEDS: Sotalol HCL 80 MG TABLET PO (21:53)
[2023-05-05] MEDS: Enoxaparin Sodium 60 MG/0.6 ML SYRINGE SUBCUT (21:54)
[2023-05-05] MEDS: Melatonin 3 MG TABLET 6 MG PO (22:03)
[2023-05-05] MEDS: 0.9 % Sodium Chloride Flush 3 ML SYRINGE IVFLUSH (22:06)
[2023-05-05 22:07] VITALS: BMI 23.5
[2023-05-05 23:41] VITALS: PULSE 82; RESP 14; O2SAT 95
[2023-05-06] VITALS (7 sets, daily range): BP systolic 131–160; BP diastolic 63–70; PULSE 73–83; RESP 16–20; TEMP 36.1–36.4; O2SAT 93–100
[2023-05-06] MEDS: Tobramycin Sulfate 80 MG/2 ML VIAL 300 MG INHALE ×2 (00:16→20:55)
[2023-05-06 05:41] LABS: MANUAL DIFF FLAG NO
[2023-05-06 05:46] LABS: Basophils Percent Auto 0.4 % (0-2); Eosinophils Absolute Auto 0.1 X10*3/uL (0.0-0.4); Eosinophils Percent Auto 1.3 % (0-4); Hematocrit 37.1 % (37.0-47.0); Hemoglobin 12.5 g/dl (12.0-16.0); Imm Gran Abs Auto 0.08 X10*3/uL (0.00-0.03); Imm Gran Pct Auto 0.8 % (0.0-0.4); Lymphocytes Absolute Auto 2.4 X10*3/uL (1.2-4.9); Lymphocytes Percent Auto 23.5 % (20-40); Mean Corpuscular HGB Conc 33.7 g/dl (31.0-35.0); Mean Corpuscular Hemoglobin 30.5 pg (27.0-33.0); Mean Corpuscular Volume 90.5 fL (80.0-98.0); Mean Platelet Volume 8.6 fL (9.4-12.3); Monocytes Absolute Auto 1.3 X10*3/uL (0.1-1.2); Monocytes Percent Auto 12.6 % (2-11); Neutrophils Absolute Auto 6.4 x10*3/uL (2.0-8.3); Neutrophils Percent Auto 61.4 % (45-73); Platelet Count 386 X10*3/uL (160-400); Red Cell Distribution Width 13.3 % (11.0-16.0); White Blood Count 10.4 X10*3/uL (4.8-10.8)
[2023-05-06 05:58] LABS: Alanine Aminotransferase 12 U/L (0-31); Albumin Level 3.4 g/dL (3.5-5.0); Alkaline Phosphatase 52 U/L (39-117); Anion Gap 10 (12-20); Aspartate Amino Transferase 14 U/L (5-31); Bilirubin Total 0.3 mg/dL (0.0-1.0); Blood Urea Nitrogen 12 mg/dL (9-16); Calcium 9.5 mg/dL (8.4-10.2); Carbon Dioxide 31 mmol/L (22-29); Chloride 95 mmol/L (96-108); Creatinine Clr Calc Pharmacy 68.8; Estimated Glomerular Filt Rate > 60; Glucose Random 99 mg/dL (60-115); Potassium 3.2 mmol/L (3.3-5.1); Sodium 133 mmol/L (135-145); Total Protein 6.6 g/dL (6.5-8.0)
[2023-05-06] MEDS: Potassium Chloride ER 20 MEQ TAB.ER.PRT 40 MEQ PO (08:32)
--- NOTE | 2023-05-06 10:30 | HO.PM.IMPN ---
Subjective Subjective Date of Service: 05/06/23 Review of Systems Follow up acute on chronic bronchiectases exacerbation Denies shortness of breath, chronic cough, no pain Physical Exam Vital Signs: Vital Signs: Last Vital Signs Temp 97.5 F 05/06/23 07:36 Pulse 74 05/06/23 07:36 Resp 16 05/06/23 07:36 BP 160/69 H 05/06/23 07:36 Pulse Ox 95 05/06/23 07:36 O2 Del Method Nasal Cannula 05/06/23 07:36 O2 Flow Rate 2 05/06/23 07:36 Oxygen Flow Rate 2 05/05/23 14:10 BMI result Body Mass Index 23.5 Appearing in no acute distress lung sounds diminished heart regular rate rhythm, clear S1, S2 positive bowel sounds, abdomen is soft, nontender neuro patient is alert x3, no focal deficits Objective Data Active Medications Acetaminophen (Acetaminophen 325 Mg Tablet) 650 mg PO Q6H PRN PRN Reason: Pain, Mild (Pain Scale 1-3) Last Admin: 05/05/23 21:12 Dose: 650 mg Documented By: MASHA Albuterol Sulfate (Albuterol Sulfate (0.083%) 2.5 Mg/3 Ml Vial.Neb) 2.5 mg INHALE Q4H PRN PRN Reason: Wheezing Last Admin: 05/05/23 23:39 Dose: 2.5 mg Documented By: ARI Albuterol/Ipratropium (Albuterol/Iprat 2.5/0.5mg 3 Ml Ampul.Neb) 3 ml INHALE TID [facility] Apixaban (Apixaban 5 Mg Tablet) 5 mg PO BID [facility] Atorvastatin Calcium (Atorvastatin Calcium 40 Mg Tablet) 40 mg PO DAILY [facility] Budesonide (Budesonide 0.5 Mg/2 Ml Ampul.Neb) 0.5 mg INHALE DAILY@1400 [facility] Fluticasone/Umeclidinium/Vilanterol (Fluticasone/Umeclidinium/Vilanterol 200/62.5/25 Blst.W.Dev) puff INHALE DAILY [facility] Guaifenesin (Guaifenesin [place] 600 Mg Tab.Er.12h) 600 mg PO BID [facility] Hydrochlorothiazide (Hydrochlorothiazide 25 Mg Tablet) 25 mg PO DAILY [facility]; Protocol Meropenem 1 gm/ Sodium (Chloride) 100 mls @ 200 mls/hr IV Q8H [facility] Last Infusion: 05/06/23 09:20 Dose: Infused Documented By: RACQUEL Lorazepam (Lorazepam 0.5 Mg Tablet) 0.5 mg PO Q6H PRN PRN Reason: Anxiety Magnesium Oxide (Magnesium Oxide 400 Mg Tablet) 400 mg PO BEDTIME APPLE Melatonin (Melatonin 3 Mg Tablet) 6 mg PO BEDTIME PRN PRN Reason: Insomnia Last Admin: 05/05/23 22:03 Dose: 6 mg Documented By: MASHA Non-Formulary Medication (Alendronate) 70 mg PO SA APPLE Non-Formulary Medication (Calcium Carbonate [Calcium 600]) 600 mg PO BID APPLE Non-Formulary Medication (Melatonin) 5 mg PO BEDTIME APPLE Non-Formulary Medication ([place] 1-Lyy-Aqo-Fish Oil [[place]-3]) 1 cap PO DAILY APPLE Non-Formulary Medication (Tobramycin In 0.225 % Nacl [[place]]) 300 mg INHALE BID APPLE Stop: 05/06/23 21:01 Non-Formulary Medication (Vit C,E,Zn,Ma-Dsxud4-Rcl-Zeax) 1 cap PO BID APPLE Omeprazole (Omeprazole 20 Mg Capsule.Dr) 20 mg PO BID AP[facility] Polyethylene Glycol (Polyethylene Glycol 3350 17 Gm Powd.Pack) 17 gm PO DAILY PRN PRN Reason: Constipation Potassium Chloride (Potassium Chloride Er 10 Meq Tablet.Er) 10 meq PO DAILY APPLE Potassium Chloride (Potassium Chloride Er 20 Meq Tab.Er.Prt) 20 meq PO BEDTIME APPLE Rifampin (Rifampin 300 Mg Capsule) 300 mg PO MOWEFR APPLE Sodium Chloride (0.9 % Sodium Chloride Flush 3 Ml Syringe) 3 ml IVFLUSH QSHIFT [facility] Last Admin: 05/06/23 09:20 Dose: Not Given Documented By: RACQUEL Non-Admin Reason: IV Running Sotalol HCl (Sotalol Hcl 80 Mg Tablet) 80 mg PO BID APPLE Vitamin D (Cholecalciferol (Vitamin D3) 25 Mcg Tablet) 50 mcg PO DAILY AP[facility] Zolpidem Tartrate (Zolpidem Tartrate 5 Mg Tablet) 5 mg PO BEDTIME PRN PRN Reason: Sleep Labs 05/06/23 05:00 05/06/23 05:00 Labs: Laboratory Results - last 24 hr 05/05/23 05/05/23 05/05/23 14:49 15:30 17:36 MCV 90.8 90.5 MCH 30.7 30.6 MCHC 33.8 33.9 RDW 13.4 13.4 Plt Count 440 H D 413 H MPV 8.5 L 8.7 L Immature Gran % (Auto) 0.8 H Neut % (Auto) 62.4 Lymph % (Auto) 23.2 [facility] % (Auto) 12.0 H Eos % (Auto) 1.2 Baso % (Auto) 0.4 Lymph # (Auto) 2.4 [facility] # (Auto) 1.3 H Eos # (Auto) 0.1 Baso # (Auto) 0.0 Abs Immat Gran (auto) 0.08 H Absolute Neuts (auto) 6.5 Absolute Nucleated RBC 0.000 0.000 Nucleated RBC % (auto) 0.0 0.0 PT 13.2 INR 1.1 APTT 41.0 H Anion Gap 13 Estim Creat Clear Calc 61.6 Estimated GFR > 60 Random Glucose 115 Lactic Acid 0.9 Calcium 10.2 Magnesium 1.9 Total Bilirubin 0.5 AST 17 ALT 13 Alkaline Phosphatase 63 Total Protein 7.9 Albumin 4.0 Urine Color Yellow Urine Appearance Clear Urine pH 5.0 Ur Specific [place] 1.010 Urine Protein Negative Urine Glucose (UA) Negative Urine Ketones Negative Urine Blood Negative Urine Nitrite Negative Ur Leukocyte Esterase Negative 05/06/23 05/06/23 05/06/23 05:00 05:00 05:00 MCV 90.5 Cancelled MCH 30.5 Cancelled MCHC 33.7 RDW Plt Count MPV Immature Gran % (Auto) Neut % (Auto) Lymph % (Auto) [facility] % (Auto) Eos % (Auto) Baso % (Auto) Lymph # (Auto) [facility] # (Auto) Eos # (Auto) Baso # (Auto) Abs Immat Gran (auto) Absolute Neuts (auto) Absolute Nucleated RBC Nucleated RBC % (auto) PT INR APTT Anion Gap Estim Creat Clear Calc Estimated GFR Random Glucose Lactic Acid Calcium Magnesium Total Bilirubin AST ALT Alkaline Phosphatase Total Protein Albumin Urine Color Urine Appearance Urine pH Ur Specific [place] Urine Protein Urine Glucose (UA) Urine Ketones Urine Blood Urine Nitrite Ur Leukocyte Esterase 05/06/23 05/06/23 05/06/23 05:00 05:00 05:00 MCV MCH MCHC Cancelled RDW 13.3 Cancelled Plt Count 386 Cancelled MPV 8.6 L Immature Gran % (Auto) Neut % (Auto) Lymph % (Auto) [facility] % (Auto) Eos % (Auto) Baso % (Auto) Lymph # (Auto) [facility] # (Auto) Eos # (Auto) Baso # (Auto) Abs Immat Gran (auto) Absolute Neuts (auto) Absolute Nucleated RBC Nucleated RBC % (auto) PT INR APTT Anion Gap Estim Creat Clear Calc Estimated GFR Random Glucose Lactic Acid Calcium Magnesium Total Bilirubin AST ALT Alkaline Phosphatase Total Protein Albumin Urine Color Urine Appearance Urine pH Ur Specific [place] Urine Protein Urine Glucose (UA) Urine Ketones Urine Blood Urine Nitrite Ur Leukocyte Esterase 05/06/23 05/06/23 05/06/23 05:00 05:00 05:00 MCV MCH MCHC RDW Plt Count MPV Cancelled Immature Gran % (Auto) 0.8 H Neut % (Auto) 61.4 Lymph % (Auto) 23.5 [facility] % (Auto) 12.6 H Eos % (Auto) 1.3 Baso % (Auto) 0.4 Lymph # (Auto) 2.4 [facility] # (Auto) 1.3 H Eos # (Auto) 0.1 Baso # (Auto) 0.0 Abs Immat Gran (auto) 0.08 H Absolute Neuts (auto) 6.4 Absolute Nucleated RBC 0.000 Cancelled Nucleated RBC % (auto) 0.0 Cancelled PT INR APTT Anion Gap 10 L Estim Creat Clear Calc 68.8 Estimated GFR > 60 Random Glucose 99 Lactic Acid Calcium 9.5 D Magnesium Total Bilirubin 0.3 AST 14 ALT 12 Alkaline Phosphatase 52 Total Protein 6.6 Albumin 3.4 L Urine Color Urine Appearance Urine pH Ur Specific [place] Urine Protein Urine Glucose (UA) Urine Ketones Urine Blood Urine Nitrite Ur Leukocyte Esterase Assessment and Plan (1) Lung mass: Status: Acute (2) Chronic respiratory failure with hypoxia: Status: Acute (3) Pseudomonas respiratory infection: Status: Acute Plan 82-year-old woman with history of bronchiectases admitted with acute on chronic episode requiring long-term IV antibiotics and midline placement Bronchiectases exacerbation Recent bronchoscopy with bronchial washing showing achromobacter only susceptible to meropenem on chronic home oxygen No sepsis, no hypoxia continue meropenem 1g Q8H Albuterol as needed Followed by Dr. Dominick Brown, pulmonology Midline placed today, VNA to bring abx to patients house 05/07/23 will need one dose of Ertapenem prior to dc Acute Bronchial pneumonia hypoxia mostly with ambulation meropenem as above while inpatient Hyponatremia Mild Follow BMP Atrial fibrillation No exacerbation Continue sotalol, hold Eliquis in light of plan for midline Hypertension Elevated blood pressure Continue home medications Hyperlipidemia Continue statin Mental health Continue medications GERD Continue PPI DVT prophylaxis with full-dose Lovenox in light of plan for midline placement DNR/ DNI Attending Dr. Ribeiro continued hospital stay for treatment of acute bronchiectases requiring long-term antibiotics and the necessity for a midline catheter Quality Stroke Does the patient have a stroke diagnosis?: No VTE Prior VTE?: No VTE Risk Level:: Medical - moderate - high VTE Device Contraindication: Treatment Not Indicated VTE Drug Contraindication: N/A - Med Ordered
[2023-05-06] MEDS: Acetaminophen 325 MG TABLET 650 MG PO ×2 (10:33→19:12)
--- NOTE | 2023-05-06 10:51 | MHC.CM.PN ---
pt lives alone had no previous servceis ,she is expecting to go home tomorrow on iv antibiotics ,mid line to be placed today and hvns pts dgter will transport home
[2023-05-06] MEDS: Albuterol/Iprat 2.5/0.5MG 3 ML AMPUL.NEB INHALE ×2 (11:25→19:28)
[2023-05-06] MEDS: hydroCHLOROthiazide 25 MG TABLET PO (11:29)
[2023-05-06] MEDS: guaiFENesin LA 600 MG TAB.ER.12H PO ×2 (11:29→20:16)
[2023-05-06] MEDS: Apixaban 5 MG TABLET PO ×2 (11:29→20:16)
[2023-05-06] MEDS: Budesonide 0.5 MG/2 ML AMPUL.NEB INHALE (11:30)
[2023-05-06] MEDS: Sotalol HCL 80 MG TABLET PO ×2 (11:35→20:18)
[2023-05-06] MEDS: Fluticasone/Umeclidinium/Vilanterol 200/62.5/25 BLST.W.DEV 1 PUFF INHALE (12:26)
[2023-05-06] MEDS: LORazepam 0.5 MG TABLET PO ×2 (13:46→21:52)
--- NOTE | 2023-05-06 15:02 | HO.MIDLINE ---
Midline Insertion MIDLINE INSERTION Diagnosis: Acute Bronchial Pneumonia Indication: [correction antibiotic] Pertinent Labs: Rviewed Technique: Using sterile technique including cap and mask, glove and drape, the right arm was prepped and draped in the usual sterile fashion of full barrier technique with [facility]. Using ultrasound guidance, right basilic vein access was obtained . 20G x 8cm PowerGlide ST midline catheter was positioned. The procedure was performed in Rm 272. Ultrasound was used to document vein patency and for needle entry. A formal ultrasound picture was recorded. Vascular Adjunct [employer] has released the line for use and it is currently dressed with a StatLock, Tegaderm, and CHG disc. Verification has been performed for blood return and line patency. Arm Circumference: 26CM Equipment: BARD PowerGlide ST Catheter Type: 20G x 8cm Lot #: [id number]
--- NOTE | 2023-05-06 15:52 | PM.DS ---
DS: Providers Provider Date of admission: 05/05/23 16:08 Primary care physician: Daniel Yoon III, MD Consults: 05/05/23 14:11 Consult to Infectious Diseases Routine Consulting Provider: MARIPOSA SAUCEDA Reason for consultation: cultures grew from bronch DS: Diagnosis Discharge Diagnosis (1) Lung mass: Status: Acute (2) Chronic respiratory failure with hypoxia: Status: Acute (3) Pseudomonas respiratory infection: Status: Acute DS: Summary Hospital Course Hospital Course: 82-year-old woman with history of bronchiectases and COPD presented to the ER with complaints of worsening shortness of breath and bronchoscopy results with sent to the ER by her assistant associate full professor for IV antibiotics and plan to place midline for 21 days of antibiotics acromobacter and Filamentous fungus. patient denies fever, chills, nausea, vomiting, diarrhea however her assistant associate full professor requests chin patient to be admitted for IV antibiotics and plan for Midline placement for long-term antibiotics. In the ER, she has not noted to have fever, leukocytosis, elevated blood pressure noted and mild tachycardia. In the ER, she was given a dose of meropenem. She will be admitted for further management and treatment of acute bronchiectases. 82-year-old woman treated for acute bronchiectases. Sent to the ER by her assistant associate full professor. No sepsis. Patient has had multiple episodes of bronchiectases exacerbation, bronchoscopies, biopsies positive for fungal infection. This time she was found to have in the bronchial washing susceptible to meropenem. She was started on meropenem wall inpatient and the plan will be for 21 days of ertapenem 1 g daily at home. Patient will have visiting nursing her in teaching her how to administer the medication. She may continue all other home medications. She did develop an episode of hyponatremia which was mild and resolved. Atrial fibrillation. No exacerbation. Continue sotalol and Eliquis Hypertension . Stable blood pressure. Continue medications Hyperlipidemia. Continue statin Mental health. Continue medications GERD. Continue PPI Physical Exam Vital Signs: Vital Signs: Last Vital Signs Temp 97.2 F 05/06/23 15:15 Pulse 80 05/06/23 15:15 Resp 20 05/06/23 15:15 BP 140/68 H 05/06/23 15:15 Pulse Ox 94 05/06/23 15:15 O2 Del Method Nasal Cannula 05/06/23 15:15 O2 Flow Rate 2 05/06/23 15:15 Oxygen Flow Rate 2 05/05/23 14:10 BMI result Body Mass Index 23.5 DS: Data Data Completed and Pending Completed studies during hospitalization [Text1]: Procedures Insertion of Infusion Device into Right Basilic Vein, Percutaneous Approach (11/11/22) Labs on day of discharge: Laboratory Results - last 24 hr 05/05/23 05/06/23 05/06/23 17:36 05:00 05:00 WBC 10.4 10.4 Cancelled RBC 4.21 4.10 L Hgb 12.9 Hct 38.1 MCV 90.5 MCH 30.6 MCHC 33.9 RDW 13.4 Plt Count 413 H MPV 8.7 L Immature Gran % (Auto) Neut % (Auto) Lymph % (Auto) [place] % (Auto) Eos % (Auto) Baso % (Auto) Lymph # (Auto) [place] # (Auto) Eos # (Auto) Baso # (Auto) Abs Immat Gran (auto) Absolute Neuts (auto) Absolute Nucleated RBC 0.000 Nucleated RBC % (auto) 0.0 PT 13.2 INR 1.1 APTT 41.0 H Sodium Potassium Chloride Carbon Dioxide Anion Gap BUN Creatinine Estim Creat Clear Calc Estimated GFR Random Glucose Calcium Total Bilirubin AST ALT Alkaline Phosphatase Total Protein Albumin 05/06/23 05/06/23 05/06/23 05:00 05:00 05:00 WBC RBC Cancelled Hgb 12.5 Cancelled Hct 37.1 Cancelled MCV 90.5 MCH MCHC RDW Plt Count MPV Immature Gran % (Auto) Neut % (Auto) Lymph % (Auto) [place] % (Auto) Eos % (Auto) Baso % (Auto) Lymph # (Auto) [place] # (Auto) Eos # (Auto) Baso # (Auto) Abs Immat Gran (auto) Absolute Neuts (auto) Absolute Nucleated RBC Nucleated RBC % (auto) PT INR APTT Sodium Potassium Chloride Carbon Dioxide Anion Gap BUN Creatinine Estim Creat Clear Calc Estimated GFR Random Glucose Calcium Total Bilirubin AST ALT Alkaline Phosphatase Total Protein Albumin 05/06/23 05/06/23 05/06/23 05:00 05:00 05:00 WBC RBC Hgb Hct MCV Cancelled MCH 30.5 Cancelled MCHC 33.7 Cancelled RDW 13.3 Plt Count MPV Immature Gran % (Auto) Neut % (Auto) Lymph % (Auto) [place] % (Auto) Eos % (Auto) Baso % (Auto) Lymph # (Auto) [place] # (Auto) Eos # (Auto) Baso # (Auto) Abs Immat Gran (auto) Absolute Neuts (auto) Absolute Nucleated RBC Nucleated RBC % (auto) PT INR APTT Sodium Potassium Chloride Carbon Dioxide Anion Gap BUN Creatinine Estim Creat Clear Calc Estimated GFR Random Glucose Calcium Total Bilirubin AST ALT Alkaline Phosphatase Total Protein Albumin 05/06/23 05/06/23 05/06/23 05:00 05:00 05:00 WBC RBC Hgb Hct MCV MCH MCHC RDW Cancelled Plt Count 386 Cancelled MPV 8.6 L Cancelled Immature Gran % (Auto) 0.8 H Neut % (Auto) 61.4 Lymph % (Auto) 23.5 [place] % (Auto) 12.6 H Eos % (Auto) 1.3 Baso % (Auto) 0.4 Lymph # (Auto) 2.4 [place] # (Auto) 1.3 H Eos # (Auto) 0.1 Baso # (Auto) 0.0 Abs Immat Gran (auto) 0.08 H Absolute Neuts (auto) 6.4 Absolute Nucleated RBC 0.000 Nucleated RBC % (auto) PT INR APTT Sodium Potassium Chloride Carbon Dioxide Anion Gap BUN Creatinine Estim Creat Clear Calc Estimated GFR Random Glucose Calcium Total Bilirubin AST ALT Alkaline Phosphatase Total Protein Albumin 05/06/23 05/06/23 05:00 05:00 WBC RBC Hgb Hct MCV MCH MCHC RDW Plt Count MPV Immature Gran % (Auto) Neut % (Auto) Lymph % (Auto) [place] % (Auto) Eos % (Auto) Baso % (Auto) Lymph # (Auto) [place] # (Auto) Eos # (Auto) Baso # (Auto) Abs Immat Gran (auto) Absolute Neuts (auto) Absolute Nucleated RBC Cancelled Nucleated RBC % (auto) 0.0 Cancelled PT INR APTT Sodium 133 L Potassium 3.2 L Chloride 95 L Carbon Dioxide 31 H Anion Gap 10 L BUN 12 Creatinine 0.60 Estim Creat Clear Calc 68.8 Estimated GFR > 60 Random Glucose 99 Calcium 9.5 D Total Bilirubin 0.3 AST 14 ALT 12 Alkaline Phosphatase 52 Total Protein 6.6 Albumin 3.4 L Discharge Plan Discharge Patient Disposition: Home Health Service Discharge Diagnosis: acute bronchiectases exacerbation Referrals: Daniel Yoon III, MD [Primary Care Provider] - 1 Week Discharge Medications: New ertapenem 1 gram recon soln 1 g IV DAILY 21 Days Continued sodium chloride 7 % solution for nebulization 4 ml inhalation BID Qty: 240 11RF albuterol sulfate 90 mcg/actuation HFA aerosol inhaler 2 puff PO Q6H PRN (Reason: for wheezing) Qty: 34 3RF Trelegy Ellipta 200-62.5-25 mcg blister with device 1 ea inhalation DAILY 30 Days Qty: 60 11RF potassium chloride 20 mEq tablet,ER particles/crystals 10 meq PO DAILY Culturelle 10 billion cell Capsule 1 cap PO DAILY magnesium oxide 400 mg magnesium Tablet 400 mg PO BEDTIME polyethylene glycol 3350 [Miralax] 17 gram Powder In Packet 17 g PO DAILY PRN (Reason: Constipation) acetaminophen 500 mg Tablet 1,000 mg PO QID PRN (Reason: Pain) melatonin 5 mg Tablet 5 mg PO BEDTIME cholecalciferol (vitamin D3) 50 mcg (2,000 unit) Tablet 50 mcg PO DAILY [place]-3 350 mg-235 mg- 90 mg-597 mg Capsule,Delayed Release(Dr/Ec) 1 cap PO DAILY d-mannose 500 mg Capsule 1,500 mg PO BID ipratropium-albuterol 0.5 mg-3 mg(2.5 mg base)/3 mL solution for nebulization 3 ml inhalation TID ondansetron HCl 4 mg tablet 4 mg PO Q4H PRN (Reason: nausea and vomiting) rifampin 300 mg capsule 300 mg PO MOWEFR budesonide 0.5 mg/2 mL suspension for nebulization 0.5 mg inhalation DAILY@1400 hydrochlorothiazide 25 mg tablet 25 mg PO DAILY sotalol 80 mg tablet 80 mg PO BID Eliquis 5 mg tablet 5 mg PO BID omeprazole 20 mg capsule,delayed release(DR/EC) 20 mg PO BID vit C,E,Zn,Lb--rwk-zeax 250-2.5-0.5 mg capsule 1 cap PO BID calcium carbonate [Calcium 600] 600 mg calcium (1,500 mg) tablet 600 mg PO BID glucosamine-chondroitin 900 mg tablet 1,200 mg PO BID zolpidem [Ambien] 5 mg tablet 5 mg PO BEDTIME PRN (Reason: Sleep) lorazepam 0.5 mg tablet 0.5 mg PO Q6H PRN (Reason: Anxiety) coenzyme Q10 400 mg capsule 400 mg PO DAILY guaifenesin [Mucinex] 600 mg tablet extended release 12hr 600 mg PO BID potassium chloride 20 mEq tablet,ER particles/crystals 20 meq PO BEDTIME alendronate 70 mg tablet 70 mg PO SA (DME) nebulizers Misc See Rx Instructions .ROUTE Rx Instructions: As directed (DME) Oxygen Home Use Kit See Rx Instructions .ROUTE Rx Instructions: As directed tobramycin in 0.225 % NaCl [Avtar] 300 mg/5 mL solution for nebulization 300 mg inhalation BID 28 Days Qty: 280 6RF Rx Instructions: 28 days on and 28 days off 3 more dose this cycle atorvastatin 40 mg tablet 40 mg PO DAILY Diet: Advance to usual diet Activity on Discharge: As tolerated Stand Alone Forms: Patient Portal Discharge page Care Plan Goals: You have a midline IV that was placed on 05/06/2023. You will need 21 days of ertapenem, visiting nurse may remove midline with last dose of antibiotic Health Concerns: acute bronchiectases exacerbation Plan of Treatment: follow-up with pulmonology as needed Assessment: see discharge summary
[2023-05-06] MEDS: Omeprazole 20 MG CAPSULE.DR PO (16:02)
[2023-05-06] MEDS: 0.9 % Sodium Chloride Flush 3 ML SYRINGE IVFLUSH ×2 (16:05→19:20)
[2023-05-06 16:33] LABS: INTERNATIONAL NORM RATIO 1.1 (0.9-1.1); Prothrombin Time 13.5 SEC (11.1-13.3)
--- NOTE | 2023-05-06 17:47 | P.CDIM_ITS ---
PROVIDER RESPONSE TEXT: To clarify, the appropriate diagnosis supported by the clinical indicators: Acute on chronic respiratory failure: Bronchiectases exacerbation QUERY TEXT: PHYSICIAN'S DOCUMENTATION REQUEST Date of Query: 05/06/2023 08:42 AM EST Patient Name: Zainab Jackson Admit Date: 05/05/2023 Dear Bhavani Brown, A review of the medical record indicates additional documentation may be needed. Please review below and update the documentation accordingly. Clinical Indicators: Patient is on 2 liters home oxygen for COPD PMH - Supplemental oxygen dependent presents with complaints of worsening shortness of breath. Please clarify which of the following accurately represents the patient's respiratory status: Chronic respiratory failure Please specify if Hypoxic, Hypercapnic, or Hypoxic and hypercapnic Acute on chronic respiratory failure please specify Other (explain) Clinically unable to determine (explain) Thank you, Marcelle Guy, CCS, CDIS Use of terms such as suspected, likely, concern for, or probable (associated with a specific diagnosi s that is being evaluated, monitored, or treated as if it exists) are acceptable and can be coded in the inpatient se tting, when documented at the time of discharge. Please use your independent medical judgment in providing your response. THIS QUERY IS PART OF THE PERMANENT MEDICAL RECORD
[2023-05-06] MEDS: Metoclopramide HCl 10 MG/2 ML VIAL IVPUSH (19:20)
[2023-05-06] MEDS: Magnesium Oxide 400 MG TABLET PO (20:16)
[2023-05-06] MEDS: Potassium Chloride ER 20 MEQ TAB.ER.PRT PO (20:16)
[2023-05-06] MEDS: Melatonin 3 MG TABLET 6 MG PO (21:52)
[2023-05-06] MEDS: Zolpidem Tartrate 5 MG TABLET PO ×2 (21:52)
[2023-05-06] MEDS: Heparin Sodium,Porcine Flush 50 UNITS/5 ML SYRINGE IVFLUSH (23:23)
[2023-05-07 03:36] VITALS: BP 150/67; PULSE 75; RESP 17; TEMP 36.1; O2SAT 97
[2023-05-07] MEDS: Omeprazole 20 MG CAPSULE.DR PO (05:53)
[2023-05-07 07:12] VITALS: BP 154/67; PULSE 78; RESP 20; TEMP 36.2; O2SAT 98
[2023-05-07] MEDS: Albuterol/Iprat 2.5/0.5MG 3 ML AMPUL.NEB INHALE (08:19)
[2023-05-07 08:21] VITALS: PULSE 78; RESP 20
[2023-05-07] MEDS: Heparin Sodium,Porcine Flush 50 UNITS/5 ML SYRINGE IVFLUSH (08:26)
[2023-05-07] MEDS: Apixaban 5 MG TABLET PO (08:27)
[2023-05-07] MEDS: Potassium Chloride ER 10 MEQ TABLET.ER PO (08:27)
[2023-05-07] MEDS: guaiFENesin LA 600 MG TAB.ER.12H PO (08:27)
[2023-05-07] MEDS: hydroCHLOROthiazide 25 MG TABLET PO (08:27)
[2023-05-07] MEDS: Cholecalciferol (Vitamin D3) 25 MCG TABLET 50 MCG PO (08:27)
[2023-05-07] MEDS: Sotalol HCL 80 MG TABLET PO (08:28)
[2023-05-07] MEDS: Atorvastatin Calcium 40 MG TABLET PO (08:28)
[2023-05-07] MEDS: Ertapenem Sodium 1 GM in 0.9 % Sodium Chloride 50 ML IV (09:20)
[2023-05-07] MEDS: 0.9 % Sodium Chloride Flush 3 ML SYRINGE IVFLUSH (09:21)
[2023-05-07] MEDS: Ondansetron ODT 4 MG TAB.RAPDIS TRANSLINGU (10:36)
[2023-05-07] MEDS: Acetaminophen 325 MG TABLET 650 MG PO (10:36)
--- NOTE | 2023-05-07 11:40 | PM.DS ---
DS: Providers Provider Date of Service: 05/07/23 Date of admission: 05/05/23 16:08 Date of discharge: 05/07/23 Primary care physician: Daniel Yoon III, MD Admitting clinician: Bhavani Brown Attending physician on admission: Rebecca Gant Consults: 05/05/23 14:11 Consult to Infectious Diseases Routine Consulting Provider: MARIPOSA SAUCEDA Reason for consultation: cultures grew from bronch Attending physician on discharge: Milo Ribeiro Discharging clinician: Carmella Mcgraw DS: Diagnosis Discharge Diagnosis (1) Lung mass: Status: Acute (2) Chronic respiratory failure with hypoxia: Status: Acute (3) Pseudomonas respiratory infection: Status: Acute DS: Summary Hospital Course Hospital Course: HPI on admission by Bhavani Brown NP on 05/05: 82-year-old woman with history of bronchiectases and COPD presented to the ER with complaints of worsening shortness of breath and bronchoscopy results with sent to the ER by her glass deposition tender for IV antibiotics and plan to place midline for 21 days of antibiotics acromobacter and Filamentous fungus. patient denies fever, chills, nausea, vomiting, diarrhea however her glass deposition tender requests chin patient to be admitted for IV antibiotics and plan for Midline placement for long-term antibiotics. In the ER, she has not noted to have fever, leukocytosis, elevated blood pressure noted and mild tachycardia. In the ER, she was given a dose of meropenem. She will be admitted for further management and treatment of acute bronchiectases. Hospital course: 82-year-old woman treated for acute bronchiectases. Sent to the ER by her glass deposition tender. No sepsis. Patient has had multiple episodes of bronchiectases exacerbation, bronchoscopies, biopsies positive for fungal infection. This time she was found to have in the bronchial washing susceptible to meropenem. She was started on meropenem wall inpatient and the plan will be for 21 days of meropenam 1 g TID at home. Check CMP weekly. Patient will have visiting nursing her in teaching her how to administer the medication. She may continue all other home medications. She did develop an episode of hyponatremia which was mild and resolved. Follow up with pulmonology as scheduled as well as PCP soon. Atrial fibrillation. No exacerbation. Continue sotalol and Eliquis Hypertension . Stable blood pressure. Continue medications Hyperlipidemia. Continue statin Mental health. Continue medications GERD. Continue PPI Status at Discharge Functional status at discharge: independent ambulation Overall status at discharge: patient is progressing back to baseline Time Attestation Discharge coordination time: Greater than 30 minutes Quality: Safe Use of Opioids Does Pt have an Active Cancer Diagnosis on the Problem List?: No Quality: Stroke Does the patient have a stroke diagnosis?: No Physical Exam Vital Signs: Vital Signs: Last Vital Signs Temp 97.2 F 05/07/23 07:12 Pulse 78 05/07/23 08:21 Resp 20 05/07/23 08:21 BP 154/67 H 05/07/23 07:12 Pulse Ox 98 05/07/23 07:12 O2 Del Method Nasal Cannula 05/07/23 07:12 O2 Flow Rate 2 05/07/23 07:12 Oxygen Flow Rate 2 05/05/23 14:10 BMI result Body Mass Index 23.5 Constitutional - Awake and Alert, No apparent distress Eyes - PERRLA, EOMI Cardiovascular - S1S2, RRR, No edema Respiratory - Normal lung expansion, Normal respiratory effort, No respiratory distress on 2L supplemental O2, diffuse rhonchi Extremities - no calf tenderness bilaterally, no swelling Skin - Warm/Dry Neurological - Alert & oriented x3 Psychological - Appropriate affect DS: Data Data Completed and Pending Completed studies during hospitalization [Text1]: Procedures Insertion of Infusion Device into Right Basilic Vein, Percutaneous Approach (11/11/22) Labs on day of discharge: Laboratory Results - last 24 hr 05/06/23 16:21 PT 13.5 H INR 1.1 Preliminary micro results at discharge 05/05/23 15:45 Blood Culture - Preliminary Blood - Venous No growth after 24 hours. 05/05/23 14:49 Blood Culture - Preliminary Blood - Venous No growth after 24 hours. Discharge Plan Discharge Anticipated Discharge Date/Time: 05/07/23 11:38 Patient Disposition: Home Health Service Discharge Diagnosis: acute bronchiectases exacerbation Referrals: Daniel Yoon III, MD [Primary Care Provider] - 1 Week Dominick Brown MD [Physician] - 1 Week Discharge Medications: New meropenem 1 gram recon soln 1 g IV Q8H Continued sodium chloride 7 % solution for nebulization 4 ml inhalation BID Qty: 240 11RF albuterol sulfate 90 mcg/actuation HFA aerosol inhaler 2 puff PO Q6H PRN (Reason: for wheezing) Qty: 34 3RF Trelegy Ellipta 200-62.5-25 mcg blister with device 1 ea inhalation DAILY 30 Days Qty: 60 11RF potassium chloride 20 mEq tablet,ER particles/crystals 10 meq PO DAILY Culturelle 10 billion cell Capsule 1 cap PO DAILY magnesium oxide 400 mg magnesium Tablet 400 mg PO BEDTIME polyethylene glycol 3350 [Miralax] 17 gram Powder In Packet 17 g PO DAILY PRN (Reason: Constipation) acetaminophen 500 mg Tablet 1,000 mg PO QID PRN (Reason: Pain) melatonin 5 mg Tablet 5 mg PO BEDTIME cholecalciferol (vitamin D3) 50 mcg (2,000 unit) Tablet 50 mcg PO DAILY [place]-3 350 mg-235 mg- 90 mg-597 mg Capsule,Delayed Release(Dr/Ec) 1 cap PO DAILY d-mannose 500 mg Capsule 1,500 mg PO BID ipratropium-albuterol 0.5 mg-3 mg(2.5 mg base)/3 mL solution for nebulization 3 ml inhalation TID ondansetron HCl 4 mg tablet 4 mg PO Q4H PRN (Reason: nausea and vomiting) rifampin 300 mg capsule 300 mg PO MOWEFR budesonide 0.5 mg/2 mL suspension for nebulization 0.5 mg inhalation DAILY@1400 hydrochlorothiazide 25 mg tablet 25 mg PO DAILY sotalol 80 mg tablet 80 mg PO BID Eliquis 5 mg tablet 5 mg PO BID omeprazole 20 mg capsule,delayed release(DR/EC) 20 mg PO BID vit C,E,Zn,Aj--kkl-zeax 250-2.5-0.5 mg capsule 1 cap PO BID calcium carbonate [Calcium 600] 600 mg calcium (1,500 mg) tablet 600 mg PO BID glucosamine-chondroitin 900 mg tablet 1,200 mg PO BID zolpidem [Ambien] 5 mg tablet 5 mg PO BEDTIME PRN (Reason: Sleep) lorazepam 0.5 mg tablet 0.5 mg PO Q6H PRN (Reason: Anxiety) coenzyme Q10 400 mg capsule 400 mg PO DAILY guaifenesin [Mucinex] 600 mg tablet extended release 12hr 600 mg PO BID potassium chloride 20 mEq tablet,ER particles/crystals 20 meq PO BEDTIME alendronate 70 mg tablet 70 mg PO SA (DME) nebulizers Misc See Rx Instructions .ROUTE Rx Instructions: As directed (DME) Oxygen Home Use Kit See Rx Instructions .ROUTE Rx Instructions: As directed tobramycin in 0.225 % NaCl [Avtar] 300 mg/5 mL solution for nebulization 300 mg inhalation BID 28 Days Qty: 280 6RF Rx Instructions: 28 days on and 28 days off 3 more dose this cycle atorvastatin 40 mg tablet 40 mg PO DAILY Discharge Orders: Discharge Order (Routine); Ordered 05/07/23 Ordered By: Carmella Mcgraw Diet: Advance to usual diet Activity on Discharge: As tolerated Stand Alone Forms: Patient Portal Discharge page Other Ambulatory Orders: Comprehensive Met. Panel ( DIRECTED) Timeframe: 20230514 Facility: [facility] - Location: Laboratory Ordered By: Carmella Garcia Met. Panel ( DIRECTED) Timeframe: [id number] Facility: [facility] - Location: Laboratory Ordered By: Carmella Garcia Met. Panel ( DIRECTED) Timeframe: [id number] Facility: [facility] - Location: Laboratory Ordered By: Carmella Mcgarw Care Plan Goals: You have a midline IV that was placed on 05/06/2023. You will need 21 days of meropenam, visiting nurse may remove midline with last dose of antibiotic Health Concerns: acute bronchiectases exacerbation Plan of Treatment: follow-up with pulmonology as needed continue antibiotics as above have vna check liver and renal function weekly Assessment: see discharge summary
--- NOTE | 2023-05-07 12:28 | MHC.CM.PN ---
Addendum entered by Fernanda Fontenot 05/07/23 13:26: PT WILL ATTEMPT TO ARRANGE HER OWN TRANSPORT BUT IS AWARE THE C SHUTTLE MAY BE AVAILABLE IF NEEDED Addendum entered by Fernanda Fontenot 05/07/23 13:13: [facility] WILL SEE PT IN THE MORNING PT WILL DC HOME TODAY WITH [facility] OR TO DELIVER MEDS THIS EVENING AND [facility] TO START TOMORROW Original Note: PT WILL DC HOME ON MEROPENEM INSTEAD OF ERTAPENEM SHE IS AWARE THIS IS A 3X/DAY MED SHE REPORTS FEELING COMFORTABLE WITH THIS ALTHOUGH WOULD PREFER THE ONCE PER DAY SHE IS AWARE SHE WILL NOT START MED UNTIL TOMORROW CURRENTLY WAITING TO LEARN WHAT TIME THE [facility] WILL SEE HER TOMORROW
--- NOTE | 2023-05-07 15:53 | W.MHC.F2F ---
Service Date Service Date: 05/07/23 Encounter Date of encounter: 05/07/23 Reasons for Services Signs and symptoms assessed: cough, sob, postive cultures with achromobacter and filamentous fungus on bronchoscopy requiring picc line and prolonged IV abx Reason for senior care: medication management and medication treatment Homebound: Leaving the home is medically contraindicated at this time without the asist of a device and/or another person due th the listed conditions above and below. Reason homebound: weakness related to hospital stay Homebound supporting statement: Pt requires management of IV meropenam via PICC line TID x 21 days with weekly lab monitoring Certification: Based on the above findings, I certify that this patient is confined to the home and needs intermittent senior care care, physical therapy and/or speech therapy, or continues to need occupational therapy. The patient is under my care, and I have initiated the establishment of the plan of care. The patient will be followed by a physician who will periodically review the plan of care. Time Spent With Patient Time: Total time managing care of this patient today ____ minutes.
== END 2023-05-07 13:57 | disposition home health service (06) | DRG 190 ==
LOC: HO.ED 15:55 → HO.EDOVER 16:13 → HO.S3 19:41
PROVIDERS: Physician Assistant Medical; Admitting Provider Nurse Practitioner Acute Care; Emergency Provider Emergency Medicine; PCP Internal Medicine; Visit Provider Physician Assistant
PROC: 05HB33Z Insertion of Infusion Device into Right Basilic Vein, Percutaneous Approach (ICD-10-PCS; principal; 2023-05-06 14:40)
DX: J47.0 Bronchiectasis with acute lower respiratory infection (principal); J96.21 Acute and chronic respiratory failure with hypoxia; E87.1 Hypo-osmolality and hyponatremia; J18.9 Pneumonia, unspecified organism; Z66 Do not resuscitate; I48.91 Unspecified atrial fibrillation; J47.1 Bronchiectasis with (acute) exacerbation; E78.5 Hyperlipidemia, unspecified; I10 Essential (primary) hypertension; K21.9 Gastro-esophageal reflux disease without esophagitis; Z99.81 Dependence on supplemental oxygen; Z79.01 Long term (current) use of anticoagulants; Z79.51 Long term (current) use of inhaled steroids; Z79.899 Other long term (current) drug therapy
CPT/HCPCS: 36410; 36415; 71045; 80053; 81003; 83605; 83735; 85025; 85027; 85610; 85730; 87040; 93005; 94640; 99285; C1751; J1335; J1642; J1650; J2185; J2765; J3260

== ENCOUNTER → 2023-05-05 16:08 | Outpatient (BNV) | payer MEDICARE, SELFPAY | PROVIDERS: Admitting Provider Nurse Practitioner Acute Care; Emergency Provider Emergency Medicine; PCP Internal Medicine; Visit Provider Nurse Practitioner Acute Care | DX: J47.1 Bronchiectasis with (acute) exacerbation (principal); B96.5 Pseudomonas (aeruginosa) (mallei) (pseudomallei) as the cause of diseases classified elsewhere; J96.11 Chronic respiratory failure with hypoxia; Z99.81 Dependence on supplemental oxygen; R91.8 Other nonspecific abnormal finding of lung field | CPT/HCPCS: 99223; 99232; 99239; G0180 ==

== ENCOUNTER 2023-05-13 12:48 | Outpatient (REF) | payer MEDICARE, SELFPAY ==
[2023-05-13 12:51] LABS: MANUAL DIFF FLAG NO
[2023-05-13 13:01] LABS: Basophils Percent Auto 0.3 % (0-2); Eosinophils Absolute Auto 0.1 X10*3/uL (0.0-0.4); Eosinophils Percent Auto 0.6 % (0-4); Hematocrit 37.2 % (37.0-47.0); Hemoglobin 12.4 g/dl (12.0-16.0); Imm Gran Pct Auto 0.7 % (0.0-0.4); Lymphocytes Absolute Auto 2.1 X10*3/uL (1.2-4.9); Lymphocytes Percent Auto 15.3 % (20-40); Mean Corpuscular HGB Conc 33.3 g/dl (31.0-35.0); Mean Corpuscular Hemoglobin 31.2 pg (27.0-33.0); Mean Corpuscular Volume 93.7 fL (80.0-98.0); Monocytes Absolute Auto 1.4 X10*3/uL (0.1-1.2); Monocytes Percent Auto 9.7 % (2-11); Neutrophils Absolute Auto 10.2 x10*3/uL (2.0-8.3); Neutrophils Percent Auto 73.4 % (45-73); Platelet Count 422 X10*3/uL (160-400); Red Blood Count 3.97 X10*6/uL (4.20-5.50); Red Cell Distribution Width 13.7 % (11.0-16.0)
[2023-05-13 13:34] LABS: Anion Gap 11 (12-20); Blood Urea Nitrogen 17 mg/dL (9-16); Calcium 9.3 mg/dL (8.4-10.2); Carbon Dioxide 33 mmol/L (22-29); Chloride 97 mmol/L (96-108); Estimated Glomerular Filt Rate > 60; Glucose Random 95 mg/dL (60-115); Potassium 4.1 mmol/L (3.3-5.1); Sodium 137 mmol/L (135-145)
== END 2023-05-13 12:49 | disposition home or self-care (01) ==
LOC: HO.HVNA 12:48
PROVIDERS: Visit Provider Internal Medicine
DX: J98.8 Other specified respiratory disorders (principal)
CPT/HCPCS: 36415; 80048; 85025

== ENCOUNTER 2023-05-19 15:19 | Outpatient (AMB) | payer MEDICARE, SELFPAY ==
[2023-05-19 15:34] VITALS: PULSE 92; O2SAT 96; BMI 22.1
--- NOTE | 2023-05-19 15:34 | MHC.OFFVIS ---
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 She has had bronchoscopies in the past with positive stenotrophomonas. She also has a cardiac condition including AFib a flutter. She had a prolonged hospitalization the summer was very sick. She started to feel better. She completed a Holter monitor. She is still having issues with reflux. She is maintaining a diet and taking medications to minimize the acid. The patient did have a CT scan of the chest March 16, 2019 that we personally. The pulmonary nodules appear to be stable. She does have some evidence of airspace disease in the bases bring up the question of micro aspirations into the lungs. This appears to be a little bit worse on the left side in the right with compared to previous. Therefore, we talked about the importance of micro aspirations and minimizing the apparent we can consider promotility agents including Reglan, azithromycin and temporary done. However, domperidone and azithromycin do cause QT prolongation with the dangers with her sotalol. Right now Reglan is an option but will hold off at this time since she is doing well. We did review her CT scan of the chest demonstrating interval improvement her pulmonary nodules. She still has bronchiectatic changes and bronchitis looking airways, but, overall better. The right lower lobe has more dense airspace disease but that even looks improved when compared to her previous CAT scan from [facility]. She still waiting to get a portable oxygen concentrator. She has been working with [facility] to get that arranged. 05/31/2022 the patient is here for sick visit. She has been doing a lot better when she started the amikacin nebulized therapy. Her chest congestion has improved dramatically. Her wheezing has improved as well. She also continues with the other on the mycobacterial antibiotics. Although she has been noticing that she has been more hypoxic and more short of breath. This is been the case for the last 2 or 3 days. She has had to increase her oxygen requirements. She was desaturating to the low 80s and she called our office. We had her come in we did a 6 minute walk test. The patient did need continues oxygen. The patient also had a chest x-ray which demonstrated no acute disease. At this point the patient may be having a reaction to the amikacin. Therefore she is going to hold over the weekend and start a Medrol Danilo to see if she has any improvement. If however she has any worsening hypoxia worsening symptoms she is to come to the ER for further evaluation. if she is doing better and she is able to start the amikacin she will watch for any adverse effects. 07/09/2022 the patient is here for a pulmonary follow-up visit. She is tolerating the amikacin better. She is doing every other day. I am hopeful that in the coming months we can consider trying her back in daily. She continues on the ethambutol and rifampin 3 times a week. Her cough mucus has been significantly better. It was a lot better when she was on amikacin daily but that was hard to for her to tolerate due to her significant coughing irritation of her oral airway. May be a component of tolerance therefore, she should hopefully tolerated better in that the the case and a few months after she gets used to it. She had sputum cultures sent back in May 2022 demonstrating no further organisms and mycobacteria. I did provide her with another cup in order for her to provide us with another sample. She continues with respiratory therapy. She also continues with her oxygen. Overall the patient is doing better and therefore she should start performing pulmonary rehabilitation. She can do this in person or in the pulmonary lab. I will have her undergo PFTs in order to get her into the lab to do in person training. 10/16/2021 into the patient is here for pulmonary follow-up visit. She was briefly in the hospital with worsening respiratory symptoms. She had acute on chronic hypoxic respiratory failure. The patient did have a chest x-ray demonstrating bilateral hazy opacities consistent with pneumonitis. Likely secondary to the inhaled amikacin. She was given Solu-Medrol then prednisone and her symptoms improved dramatically along with her chest x-ray per from a she got home she restart DM he is in 3 times a week but still developed worsening shortness of breath he required more oxygen. At this point the patient tried and failed the amikacin. The the a on a good note the patient did a have improved her wheezing also chest congestion Beth's the last few months that she use the inhaled antibiotics she did have a positive response. She is going to continue with the ethambutol and the rifampin for now. The patient will need prednisone taper. Will plan to follow-up in 4 weeks. In the meantime we also looked at her blood work and sputum culture which grew Aspergillus. She does have a garden in her home and she uses hydroponics. Unfortunately, this is putting her at risk for mold exposures. No evidence of an active aspergillus infection at this time, likely colonizer. We will monitor for now. 11/06/2022 the patient is here for sick visit. She was feeling well for about 2 weeks and then she started feeling bad again. Chest congestion with green sputum and also feeling nauseous. She has had some subjective fevers and chills. She was supposed to test for COVID she has not done as of yet. The patient has been off the amikacin now for few weeks. Therefore, it is unclear if is related to the completion of the medication or there is a new infection. She has had multiple positive cultures in the past. I did recommend getting a sputum culture. She does have a planned trip for the beginning of November. Will try to treat her empirically then in order for her to be able to go her trip. Also try to get sputum cultures. If the patient is no better she is to call the office. Otherwise we will plan to consider bronchoscopy when she is back in her trip in order to better get a sense of any ongoing infection that are making her worse. She continues use the oxygen therapy with good effect. 11/28/2022 the patient is here for pulmonary follow-up visit. The patient continues to have cough although says slowly improving. Her mucus is less thick and is very watery. Still having shortness of breath. She had not completed the prednisone. She has 3 more days of the IV antibiotics. She has significant bronchiectasis and now Pseudomonas. The patient is finishing up the course of MV antibiotics but continues to be symptomatic. Therefore I do believe that she will benefit from inhaled tobramycin. The patient will start a trial mycin 28 days on and 28 days off. She should continue with current respiratory therapy in the chest physical therapy. Right now will holding off on the antibiotics for the mycobacterial disease. That is okay for now will going to focus on the Pseudomonas once the patient is able to start the inhaled tobramycin will start working on adding the anti mycobacterial therapy. 01/22/2023 the patient is here for pulmonary follow-up visit. She started the inhaled tobramycin. Has been very affecting beneficial. Her respiratory status is improved dramatically. Initially when she started she has developed a cough and she had some desaturation but after that she has been feeling a lot better. Now she completed 28 days and she is off it for the last week. She has noted some slight increase congestion but she is hoping that she stays well. She is using her chest percussion vest and she is using her percussion valve for chest PT. She is also using nebulized therapy along with the budesonide. The patient overall doing well. We did look at her last CT scan from 2020 demonstrating a pulmonary nodule which is new measuring 4 mm in size. She is going to require repeat CT scan since has been more than a year. Will have her return in [address] scan at this time. The patient has any issues prior to that she will call for an earlier assessment. 04/23/2023 the patient is here for a pulmonary follow-up visit. The patient has not been feeling well lately. She has been having to use her oxygen more regularly. She is currently on the inhaled tobramycin which has been helpful in clearing out some of the chest congestion related to the Pseudomonas and also partially helpful in with the mycobacterial disease. She continues on the rifampin as well. She did stop the family told the past. We did review her recent CT scan of the chest demonstrating a masslike consolidation in the anterior segment of the left upper lobe. This is a worrisome finding but appears to more infectious process. Cannot rule out malignancy at this time. Although the size of it would suggest that this would have been present in previous CAT scans but was not. Therefore, the best option will be to perform a bronchoscopy for further sampling. 05/19/2023 the patient is here for a pulmonary follow-up visit. Overall she is feeling a little better. Still complaining of shortness of breath with activity. Moderate severity. Her chest congestion has improved. She was again admitted to the hospital with achromobacter pneumonia. She had a PICC line placed or midline place and was started on meropenem. She is going to be on the therapy for total of 21 days. She is tolerating it well. Her white count still elevated and she is concerned. Her bronchoscopy cultures also cultured Aspergillus fumigatus. Therefore I am concerned for the possibility of an aspergilloma involving in the masslike density. The patient needed to be treated for the alcohol back to pressure also needs to be treated for the Aspergillus. Therefore since she is doing better tolerating the gabapentin will go ahead and start her on voriconazole. However, while she is on the voriconazole she will have to stop the rifampin that she uses for the mycobacterial disease. The patient has significant amount of lower respiratory smoldering infections making difficult to treat. The patient also has a history Pseudomonas and she will be starting her inhaled tobramycin once she completes her meropenem. When she completes a course of voriconazole will go ahead and repeat her CT scan to follow-up with the masslike density, which, I am hoping that it has either resolved or resolving. If the area continues to be abnormal after all these medical interventions then further diagnostic interventions may be warranted her however, also need to consider the patient has respiratory capacity is significantly decreased and any intervention would be high risk. She continues to use her chest PT and continue to use her percussion vest. As far as medical therapy were also limited by the cardiac history and therefore we need to be very careful not to aggressively treat her pulmonary issues knowing that it can also worsen her cardiac condition. She continues use oxygen with good effect. No further changes at this time. The patient follow-up in several weeks. 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 Pulmonary nodules COPD (chronic obstructive pulmonary disease) Bronchiectasis Surgical History Hx of colonoscopy History of bronchoscopy History of appendectomy Social History Household Members: Other Household Members Other:: alone Housing: Condominium Are you a primary career and guidance counselor to a significant other at home: No Do you presently have visiting nurse or other home services: No Unable to assess alcohol history related to: Unknown Alcohol intake: never Patient Tobacco Use Status: Former Tobacco user Quit Date: 1998 Tobacco use type: Cigarette Years Smoked: 35 Second Hand Smoke Exposure: No Advance Directives Date on File: 01/31/22 service: No Current occupational status: retired Review of Systems Const Reports fatigue, Denies fever(s), Denies malaise and Denies night sweats ENT Denies change in voice, Denies lip swelling, Denies mouth pain, Reports nasal congestion, Reports nasal discharge and Denies tongue swelling Card Denies chest pain and Reports dyspnea on exertion Resp Denies chest congestion, Reports cough, Denies hemoptysis, Reports dyspnea on exertion and Reports wheezing GI Denies abdominal pain Musc Denies no additional complaints Neuro Denies Neuro-related abnormal movements Psych Denies no additional complaints Endo Reports fatigue Sherwin/Lymph Denies easy bleeding and Denies lymphadenopathy Aller/Immun Denies lip swelling, Denies tongue swelling and Reports wheezing Physical Exam Vital Signs: Last Vital Signs Pulse 92 05/19/23 15:34 Pulse Ox 96 05/19/23 15:34 Oxygen Delivery Method Room Air 05/19/23 15:34 BMI result Body Mass Index 22.1 Last Vital Signs Temp 98.1 F 11/14/22 12:00 Pulse 87 11/14/22 12:00 Resp 19 11/14/22 12:00 BP 126/61 11/14/22 12:00 Pulse Ox 95 11/14/22 12:00 O2 Del Method Nasal Cannula 11/14/22 12:00 O2 Flow Rate 2 11/14/22 08:00 Oxygen Flow Rate 4 11/11/22 14:50 BMI result Body Mass Index 23.2 Const General: alert Neck Neck: Yes normal visual inspection, Yes full ROM and Yes no lymphadenopathy Chest Chest palpation & inspection: normal inspection of the chest Resp Effort & Inspection: prolonged expiratory phase Auscultation: no crackles, no rhonchi and diminished lung sounds Cardio Rate: regular rate Rhythm: regular rhythm Heart sounds: S1 normal heart sound present and S2 normal heart sound present GI Palpation (GI): Soft to palpation and Tenderness to palpation present (GI) in the LLQ Auscultation: normal bowel sounds Skin General skin exam: rashes and/or lesions noted Assessment & Plan Assessment & Plan (1) Aspergilloma: 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 - Aspergillosis, unspecified (2) Bronchiectasis: Code(s): J47.9 - Bronchiectasis, uncomplicated Qualifiers: Bronchiectasis type: uncomplicated Qualified Code(s): J47.9 - Bronchiectasis, uncomplicated (3) Pulmonary nodules: Comment: Code(s): R91.8 - Other nonspecific abnormal finding of lung field (4) COPD (chronic obstructive pulmonary disease): Code(s): J44.9 - Chronic obstructive pulmonary disease, unspecified Qualifiers: COPD type: chronic bronchitis Chronic bronchitis type: mucopurulent Qualified Code(s): J41.1 - Mucopurulent chronic bronchitis (5) Nontuberculous mycobacterial disease of lung: Code(s): A31.0 - Pulmonary mycobacterial infection (6) Pseudomonas respiratory infection: Code(s): J98.8 - Other specified respiratory disorders; B96.5 - Pseudomonas (aeruginosa) (mallei) (pseudomallei) as the cause of diseases classified elsewhere (7) Lung mass: Code(s): R91.8 - Other nonspecific abnormal finding of lung field Plan complete meropenem start voriconazole Continue Avtar 28 days on, 28 days off, will restart once she completes her meropenem hold Rifampin while on the voriconazole start voriconazole continue Advair/Spiriva ROBERT as needed continue budesonide oxygen with activity and sleep Bloodwork continue CPT CT chest in 2 months F/U 6-8 weeks Orders: Orders Complete Blood Count Auto Diff Today B44.9 - Aspergillosis, unspecified Liver Panel Today B44.9 - Aspergillosis, unspecified Erythrocyte Sedimentation Rate Today B44.9 - Aspergillosis, unspecified Basic Metabolic Panel Today B44.9 - Aspergillosis, unspecified CT chest wo IV con 2 Months R91.8 - Other nonspecific abnormal finding of lung field Medications: New voriconazole administer on empty stomach, at least 1 hour before or after meal(s) 200 mg PO Q12H 30 days 60 tabs 1RF Coding Level of Care Code Est Pt Level 5 (10814) Diagnoses Aspergilloma B44.9 Bronchiectasis without complication J47.9 Bronchiectasis type: uncomplicated Pulmonary nodules R91.8 Mucopurulent chronic bronchitis J41.1 COPD type: chronic bronchitis Chronic bronchitis type: mucopurulent Nontuberculous mycobacterial disease of lung A31.0 Pseudomonas respiratory infection J98.8; B96.5 Lung mass R91.8 Time Spent (min) 40
== END 2023-05-19 16:06 | disposition home or self-care (01) ==
PROVIDERS: PCP Internal Medicine; Visit Provider Hospitalist
DX: B44.9 Aspergillosis, unspecified (principal); R91.8 Other nonspecific abnormal finding of lung field; J41.1 Mucopurulent chronic bronchitis; A31.0 Pulmonary mycobacterial infection; J98.8 Other specified respiratory disorders; B96.5 Pseudomonas (aeruginosa) (mallei) (pseudomallei) as the cause of diseases classified elsewhere
CPT/HCPCS: 99215

== ENCOUNTER → 2023-05-19 15:19 | Outpatient (BNVA) | payer MEDICARE, SELFPAY | PROVIDERS: PCP Internal Medicine; Visit Provider Hospitalist | DX: J47.9 Bronchiectasis, uncomplicated (principal); J41.1 Mucopurulent chronic bronchitis; R91.8 Other nonspecific abnormal finding of lung field; B44.9 Aspergillosis, unspecified; B96.5 Pseudomonas (aeruginosa) (mallei) (pseudomallei) as the cause of diseases classified elsewhere; A31.0 Pulmonary mycobacterial infection; J98.8 Other specified respiratory disorders | CPT/HCPCS: 99212 ==

== ENCOUNTER 2023-05-20 13:39 | Outpatient (REF) | payer MEDICARE, SELFPAY ==
[2023-05-20 13:47] LABS: Basophils Absolute Auto 0.1 X10*3/uL (0.0-0.2); Basophils Percent Auto 0.6 % (0-2); Eosinophils Absolute Auto 0.1 X10*3/uL (0.0-0.4); Eosinophils Percent Auto 1.2 % (0-4); Hematocrit 38.9 % (37.0-47.0); Hemoglobin 12.9 g/dl (12.0-16.0); Imm Gran Abs Auto 0.04 X10*3/uL (0.00-0.03); Imm Gran Pct Auto 0.4 % (0.0-0.4); Lymphocytes Absolute Auto 2.2 X10*3/uL (1.2-4.9); Lymphocytes Percent Auto 24.4 % (20-40); MANUAL DIFF FLAG NO; Mean Corpuscular HGB Conc 33.2 g/dl (31.0-35.0); Mean Corpuscular Hemoglobin 30.9 pg (27.0-33.0); Mean Corpuscular Volume 93.3 fL (80.0-98.0); Monocytes Absolute Auto 1.1 X10*3/uL (0.1-1.2); Monocytes Percent Auto 12.4 % (2-11); Neutrophils Absolute Auto 5.5 x10*3/uL (2.0-8.3); Platelet Count 473 X10*3/uL (160-400); Red Blood Count 4.17 X10*6/uL (4.20-5.50); Red Cell Distribution Width 13.6 % (11.0-16.0)
[2023-05-20 14:57] LABS: Anion Gap 13 (12-20); Blood Urea Nitrogen 15 mg/dL (9-16); Calcium 9.9 mg/dL (8.4-10.2); Carbon Dioxide 32 mmol/L (22-29); Chloride 98 mmol/L (96-108); Estimated Glomerular Filt Rate > 60; Glucose Random 86 mg/dL (60-115); Potassium 4.5 mmol/L (3.3-5.1); Sodium 138 mmol/L (135-145)
== END 2023-05-20 13:40 | disposition home or self-care (01) ==
LOC: HO.LNP 13:39
PROVIDERS: Visit Provider Hospitalist
DX: B44.9 Aspergillosis, unspecified (principal); J98.8 Other specified respiratory disorders; Z79.2 Long term (current) use of antibiotics
CPT/HCPCS: 80048; 85025

== ENCOUNTER 2023-05-27 12:14 | Outpatient (REF) | payer MEDICARE, SELFPAY ==
[2023-05-27 12:19] LABS: MANUAL DIFF FLAG NO
[2023-05-27 12:30] LABS: Basophils Absolute Auto 0.1 X10*3/uL (0.0-0.2); Basophils Percent Auto 0.8 % (0-2); Eosinophils Absolute Auto 0.2 X10*3/uL (0.0-0.4); Eosinophils Percent Auto 1.9 % (0-4); Hematocrit 38.7 % (37.0-47.0); Hemoglobin 12.9 g/dl (12.0-16.0); Imm Gran Abs Auto 0.04 X10*3/uL (0.00-0.03); Imm Gran Pct Auto 0.5 % (0.0-0.4); Lymphocytes Percent Auto 25.2 % (20-40); Mean Corpuscular HGB Conc 33.3 g/dl (31.0-35.0); Mean Corpuscular Hemoglobin 30.9 pg (27.0-33.0); Mean Corpuscular Volume 92.6 fL (80.0-98.0); Mean Platelet Volume 8.8 fL (9.4-12.3); Neutrophils Absolute Auto 4.6 x10*3/uL (2.0-8.3); Neutrophils Percent Auto 58.6 % (45-73); Platelet Count 441 X10*3/uL (160-400); Red Blood Count 4.18 X10*6/uL (4.20-5.50); Red Cell Distribution Width 14.1 % (11.0-16.0); White Blood Count 7.8 X10*3/uL (4.8-10.8)
[2023-05-27 13:03] LABS: Anion Gap 12 (12-20); Blood Urea Nitrogen 17 mg/dL (9-16); Calcium 9.7 mg/dL (8.4-10.2); Carbon Dioxide 29 mmol/L (22-29); Chloride 100 mmol/L (96-108); Estimated Glomerular Filt Rate > 60; Glucose Random 83 mg/dL (60-115); Potassium 4.4 mmol/L (3.3-5.1); Sodium 137 mmol/L (135-145)
== END 2023-05-27 12:15 | disposition home or self-care (01) ==
LOC: HO.HVNA 12:14
PROVIDERS: Visit Provider Hospitalist
DX: J47.0 Bronchiectasis with acute lower respiratory infection (principal); Z79.2 Long term (current) use of antibiotics
CPT/HCPCS: 36415; 80048; 85025

== ENCOUNTER 2023-06-11 11:04 | Outpatient (REF) | payer MEDICARE, SELFPAY ==
[2023-06-11 12:27] LABS: Alanine Aminotransferase 18 U/L (0-31); Albumin Level 3.8 g/dL (3.5-5.0); Alkaline Phosphatase 76 U/L (39-117); Anion Gap 9 (12-20); Aspartate Amino Transferase 20 U/L (5-31); Bilirubin Direct < 0.2 mg/dL (0.0-0.5); Bilirubin Total 0.2 mg/dL (0.0-1.0); Blood Urea Nitrogen 18 mg/dL (9-16); Calcium 9.8 mg/dL (8.4-10.2); Carbon Dioxide 29 mmol/L (22-29); Chloride 99 mmol/L (96-108); Estimated Glomerular Filt Rate > 60; Glucose Random 116 mg/dL (60-115); Potassium 4.4 mmol/L (3.3-5.1); Sodium 133 mmol/L (135-145); Total Protein 7.3 g/dL (6.5-8.0)
[2023-06-11 12:31] LABS: Erythrocyte Sedimentation Rate 29 MM/HR (0-20)
== END 2023-06-11 11:05 | disposition home or self-care (01) ==
LOC: HO.LAB 11:04
PROVIDERS: PCP Internal Medicine; Visit Provider Hospitalist
DX: B44.9 Aspergillosis, unspecified (principal); Z51.81 Encounter for therapeutic drug level monitoring; Z79.899 Other long term (current) drug therapy
CPT/HCPCS: 36415; 80053; 80076; 82248; 85652

== ENCOUNTER 2023-06-24 08:09 | Emergency (ER) | payer MEDICARE, SELFPAY ==
--- NOTE | ~2023-06-24 | XR_ITS ---
EXAMINATION: XR CHEST CLINICAL INFORMATION: Chest burning COMPARISON: Chest radiograph 05/05/2023, chest CT 04/16/2023 TECHNIQUE: 2 views of the chest were obtained. FINDINGS: The lungs are hyperinflated with flattening of the hemidiaphragms. There is no focal consolidation, interstitial pulmonary edema or pneumothorax. There is central peribronchial thickening which can be seen with bronchitis or asthma. Left pericardial fat pad is noted. The cardiomediastinal silhouette is within normal limits. There are no pleural effusions. No acute osseous abnormality. Calcification of the thoracic and abdominal aorta is consistent with atherosclerotic disease. XR/XR chest 2V IMPRESSION: No acute cardiopulmonary disease.
[2023-06-24 08:16] VITALS: BP 179/71; PULSE 95; RESP 20; TEMP 36.4; O2SAT 95; BMI 21.9
--- NOTE | 2023-06-24 08:18 | ECG_ITS ---
Test Reason : chest burning Blood Pressure : / mmHG Vent. Rate : 088 BPM Atrial Rate : 088 BPM P-R Int : 198 ms QRS Dur : 082 ms QT Int : 372 ms P-R-T Axes : 082 052 052 degrees QTc Int : 450 ms Normal sinus rhythm with sinus arrhythmia Anteroseptal infarct (cited on or before 24-JUN-2023) Abnormal ECG When compared with ECG of 05-MAY-2023 21:49, No significant change was found Referred By: Generic ED Physician Electronically Signed By:JORDAN ARITA MD
[2023-06-24 08:41] LABS: MANUAL DIFF FLAG NO
[2023-06-24 08:42] LABS: Basophils Percent Auto 0.3 % (0-2); Eosinophils Absolute Auto 0.1 X10*3/uL (0.0-0.4); Eosinophils Percent Auto 0.8 % (0-4); Hematocrit 39.9 % (37.0-47.0); Hemoglobin 13.4 g/dl (12.0-16.0); Imm Gran Abs Auto 0.04 X10*3/uL (0.00-0.03); Imm Gran Pct Auto 0.4 % (0.0-0.4); Lymphocytes Absolute Auto 1.7 X10*3/uL (1.2-4.9); Lymphocytes Percent Auto 18.7 % (20-40); Mean Corpuscular HGB Conc 33.6 g/dl (31.0-35.0); Mean Corpuscular Hemoglobin 31.1 pg (27.0-33.0); Mean Corpuscular Volume 92.6 fL (80.0-98.0); Mean Platelet Volume 8.9 fL (9.4-12.3); Monocytes Absolute Auto 1.1 X10*3/uL (0.1-1.2); Monocytes Percent Auto 11.8 % (2-11); Neutrophils Absolute Auto 6.3 x10*3/uL (2.0-8.3); Platelet Count 378 X10*3/uL (160-400); Red Blood Count 4.31 X10*6/uL (4.20-5.50); Red Cell Distribution Width 13.4 % (11.0-16.0); White Blood Count 9.3 X10*3/uL (4.8-10.8)
[2023-06-24 08:47] LABS: INTERNATIONAL NORM RATIO 1.2 (0.9-1.1); Prothrombin Time 14.1 SEC (11.1-13.3)
[2023-06-24 08:56] LABS: Alanine Aminotransferase 16 U/L (0-31); Albumin Level 3.9 g/dL (3.5-5.0); Alkaline Phosphatase 81 U/L (39-117); Anion Gap 12 (12-20); Aspartate Amino Transferase 18 U/L (5-31); Bilirubin Direct 0.1 mg/dL (0.0-0.5); Bilirubin Total 0.3 mg/dL (0.0-1.0); Blood Urea Nitrogen 20 mg/dL (9-16); Calcium 9.9 mg/dL (8.4-10.2); Carbon Dioxide 30 mmol/L (22-29); Chloride 98 mmol/L (96-108); Estimated Glomerular Filt Rate > 60; Glucose Random 96 mg/dL (60-115); Lipase 25 U/L (8-78); Sodium 136 mmol/L (135-145); Total Protein 7.6 g/dL (6.5-8.0)
[2023-06-24 09:01] LABS: B Type Natriuretic Peptide 60 pg/mL (<100)
[2023-06-24 09:02] LABS: Troponin-I High Sensitivity < 2.7 ng/L (<3.5-17.0)
[2023-06-24 09:45] LABS: Influenza A PCR NEGATIVE (Negative); Influenza B PCR NEGATIVE (Negative); Resp Syncy Virus RNA Qual PCR NEGATIVE (Negative); SARS COV2 PCR INHOUSE NEGATIVE (Negative)
== END 2023-06-24 21:27 | disposition left against medical advice (07) ==
LOC: HO.ED 21:25
PROVIDERS: Emergency Provider Emergency Medicine; PCP Internal Medicine
DX: R07.89 Other chest pain (principal); R06.02 Shortness of breath; Z20.822 Contact with and (suspected) exposure to COVID-19; Z20.828 Contact with and (suspected) exposure to other viral communicable diseases; Z79.899 Other long term (current) drug therapy
CPT/HCPCS: 0241U; 71046; 80048; 80076; 83690; 83880; 84484; 85025; 85610; 93005; 99283

== ENCOUNTER → 2023-06-24 08:18 | Outpatient (BNV) | payer MEDICARE, SELFPAY | PROVIDERS: PCP Internal Medicine; Visit Provider Internal Medicine Cardiovascular Disease | DX: R94.31 Abnormal electrocardiogram [ECG] [EKG] (principal) | CPT/HCPCS: 93010 ==

== ENCOUNTER 2023-07-17 09:53 | Outpatient (REF) | payer MEDICARE, SELFPAY ==
--- NOTE | ~2023-07-17 | CT_ITS ---
EXAMINATION: CT CHEST WITHOUT CONTRAST CLINICAL INFORMATION: Follow-up left upper lobe mass lesion COMPARISON: CT scan of chest on 04/16/2023 TECHNIQUE: Multidetector volumetric CT imaging of the chest was done. Axial MIP volume rendering provided. Sagittal and coronal reformatted images were obtained. This CT examination was performed using dose optimization techniques as appropriate, variously including the following: *Automated exposure control *Adjustment of mA and/or kV according to patient size (this includes techniques or standardized protocols for targeted exams where dose is matched to indication/reason for exam; i.e. 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 Scattered reticulonodular densities are seen in anterior medial border of left upper lobe anterior segment at the location of previously reported irregular alveolar density with air bronchograms and posterior lateral right upper lobe posterior segment, containing nodules measuring up to 3 mm in the right upper lobe. Persistent extensive bilateral lower lobe bronchiectasis, marked peribronchial thickening, mixed with reticular nodular densities are seen. Persistent Irregular fibrotic scar with traction bronchiectasis mixed 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 nodules is seen along the lateral and posterior pleural border of right lower lobe. The largest nodule is found in the left lower lobe posterior basal segment measuring 4.2 mm in diameter (previously 4.4 mm), series 3 image #43. PLEURA: No pleural effusion or pneumothorax is seen. PERICARDIUM: No pericardial effusion is seen. MEDIASTINUM AND STUART: No abnormally enlarged mediastinal or hilar lymph nodes are seen. TRACHEOBRONCHIAL TREE: Trachea and bilateral mainstem bronchi are patent. Bilateral lower lobe peripheral subsegmental bronchial obstruction by mucous plug is again visualized. THORACIC AORTA: The thoracic aorta is normal in size with extensive atherosclerotic calcifications. CORONARY ARTERY CALCIFICATIONS: Moderate PULMONARY ARTERIES: The main pulmonary arteries show normal enhancement. CHEST WALL AND LOWER NECK: The subcutaneous and muscular chest wall are intact with no focal lesion. No abnormal mass lesion could be seen in the visualized lower neck. BONES: No fracture or dislocation. No focal bone lesion diagnostic of metastatic disease could be seen in the thorax. VISUALIZED UPPER ABDOMEN: Bilateral adrenal glands are not enlarged. Posterior superior right renal cortical simple cyst is seen measuring 2.1 cm in diameter, mean attenuation of 1.6 Hounsfield units, for which no follow up imaging is recommended. CT/CT chest wo IV con IMPRESSION: 1. Persistent destructive emphysema with vascular distortion. 2. Interval resolution of anterior left upper lobe masslike alveolar density, replaced by branching reticulonodular densities which are also present in posterior right upper lobe. 3. Unchanged extensive bilateral lower lobe bronchiectasis, subsegmental bronchial obstruction by mucous plug, peribronchial cuffing compatible with chronic bronchitis. 4. 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 Fleischner guidelines were followed.
== END 2023-07-17 09:54 | disposition home or self-care (01) ==
LOC: HO.CT 09:53
PROVIDERS: PCP Internal Medicine; Visit Provider Hospitalist
DX: R91.8 Other nonspecific abnormal finding of lung field (principal)
CPT/HCPCS: 71250

== ENCOUNTER 2023-07-23 11:03 | Outpatient (AMB) | payer MEDICARE, SELFPAY ==
[2023-07-23 11:11] VITALS: BP 126/78; PULSE 86; O2SAT 95; BMI 21.5
--- NOTE | 2023-07-23 11:11 | MHC.OFFVIS ---
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 She has had bronchoscopies in the past with positive stenotrophomonas. She also has a cardiac condition including AFib a flutter. She had a prolonged hospitalization the summer was very sick. She started to feel better. She completed a Holter monitor. She is still having issues with reflux. She is maintaining a diet and taking medications to minimize the acid. The patient did have a CT scan of the chest March 16, 2019 that we personally. The pulmonary nodules appear to be stable. She does have some evidence of airspace disease in the bases bring up the question of micro aspirations into the lungs. This appears to be a little bit worse on the left side in the right with compared to previous. Therefore, we talked about the importance of micro aspirations and minimizing the apparent we can consider promotility agents including Reglan, azithromycin and temporary done. However, domperidone and azithromycin do cause QT prolongation with the dangers with her sotalol. Right now Reglan is an option but will hold off at this time since she is doing well. We did review her CT scan of the chest demonstrating interval improvement her pulmonary nodules. She still has bronchiectatic changes and bronchitis looking airways, but, overall better. The right lower lobe has more dense airspace disease but that even looks improved when compared to her previous CAT scan from [facility]. She still waiting to get a portable oxygen concentrator. [facility]. 05/31/2022 the patient is here for sick visit. She has been doing a lot better when she started the amikacin nebulized therapy. Her chest congestion has improved dramatically. Her wheezing has improved as well. She also continues with the other on the mycobacterial antibiotics. Although she has been noticing that she has been more hypoxic and more short of breath. This is been the case for the last 2 or 3 days. She has had to increase her oxygen requirements. She was desaturating to the low 80s and she called our office. We had her come in we did a 6 minute walk test. The patient did need continues oxygen. The patient also had a chest x-ray which demonstrated no acute disease. At this point the patient may be having a reaction to the amikacin. Therefore she is going to hold over the weekend and start a Medrol Danilo to see if she has any improvement. If however she has any worsening hypoxia worsening symptoms she is to come to the ER for further evaluation. if she is doing better and she is able to start the amikacin she will watch for any adverse effects. 07/09/2022 the patient is here for a pulmonary follow-up visit. She is tolerating the amikacin better. She is doing every other day. I am hopeful that in the coming months we can consider trying her back in daily. She continues on the ethambutol and rifampin 3 times a week. Her cough mucus has been significantly better. It was a lot better when she was on amikacin daily but that was hard to for her to tolerate due to her significant coughing irritation of her oral airway. May be a component of tolerance therefore, she should hopefully tolerated better in that the the case and a few months after she gets used to it. She had sputum cultures sent back in May 2022 demonstrating no further organisms and mycobacteria. I did provide her with another cup in order for her to provide us with another sample. She continues with respiratory therapy. She also continues with her oxygen. Overall the patient is doing better and therefore she should start performing pulmonary rehabilitation. She can do this in person or in the pulmonary lab. I will have her undergo PFTs in order to get her into the lab to do in person training. 10/16/2021 into the patient is here for pulmonary follow-up visit. She was briefly in the hospital with worsening respiratory symptoms. She had acute on chronic hypoxic respiratory failure. The patient did have a chest x-ray demonstrating bilateral hazy opacities consistent with pneumonitis. Likely secondary to the inhaled amikacin. She was given Solu-Medrol then prednisone and her symptoms improved dramatically along with her chest x-ray per from a she got home she restart DM he is in 3 times a week but still developed worsening shortness of breath he required more oxygen. At this point the patient tried and failed the amikacin. The the a on a good note the patient did a have improved her wheezing also chest congestion Beth's the last few months that she use the inhaled antibiotics she did have a positive response. She is going to continue with the ethambutol and the rifampin for now. The patient will need prednisone taper. Will plan to follow-up in 4 weeks. In the meantime we also looked at her blood work and sputum culture which grew Aspergillus. She does have a garden in her home and she uses hydroponics. Unfortunately, this is putting her at risk for mold exposures. No evidence of an active aspergillus infection at this time, likely colonizer. We will monitor for now. 11/06/2022 the patient is here for sick visit. She was feeling well for about 2 weeks and then she started feeling bad again. Chest congestion with green sputum and also feeling nauseous. She has had some subjective fevers and chills. She was supposed to test for COVID she has not done as of yet. The patient has been off the amikacin now for few weeks. Therefore, it is unclear if is related to the completion of the medication or there is a new infection. She has had multiple positive cultures in the past. I did recommend getting a sputum culture. She does have a planned trip for the beginning of November. Will try to treat her empirically then in order for her to be able to go her trip. Also try to get sputum cultures. If the patient is no better she is to call the office. Otherwise we will plan to consider bronchoscopy when she is back in her trip in order to better get a sense of any ongoing infection that are making her worse. She continues use the oxygen therapy with good effect. 11/28/2022 the patient is here for pulmonary follow-up visit. The patient continues to have cough although says slowly improving. Her mucus is less thick and is very watery. Still having shortness of breath. She had not completed the prednisone. She has 3 more days of the IV antibiotics. She has significant bronchiectasis and now Pseudomonas. The patient is finishing up the course of MV antibiotics but continues to be symptomatic. Therefore I do believe that she will benefit from inhaled tobramycin. The patient will start a trial mycin 28 days on and 28 days off. She should continue with current respiratory therapy in the chest physical therapy. Right now will holding off on the antibiotics for the mycobacterial disease. That is okay for now will going to focus on the Pseudomonas once the patient is able to start the inhaled tobramycin will start working on adding the anti mycobacterial therapy. 01/22/2023 the patient is here for pulmonary follow-up visit. She started the inhaled tobramycin. Has been very affecting beneficial. Her respiratory status is improved dramatically. Initially when she started she has developed a cough and she had some desaturation but after that she has been feeling a lot better. Now she completed 28 days and she is off it for the last week. She has noted some slight increase congestion but she is hoping that she stays well. She is using her chest percussion vest and she is using her percussion valve for chest PT. She is also using nebulized therapy along with the budesonide. The patient overall doing well. We did look at her last CT scan from 2020 demonstrating a pulmonary nodule which is new measuring 4 mm in size. She is going to require repeat CT scan since has been more than a year. Will have her return in [address] scan at this time. The patient has any issues prior to that she will call for an earlier assessment. 04/23/2023 the patient is here for a pulmonary follow-up visit. The patient has not been feeling well lately. She has been having to use her oxygen more regularly. She is currently on the inhaled tobramycin which has been helpful in clearing out some of the chest congestion related to the Pseudomonas and also partially helpful in with the mycobacterial disease. She continues on the rifampin as well. She did stop the family told the past. We did review her recent CT scan of the chest demonstrating a masslike consolidation in the anterior segment of the left upper lobe. This is a worrisome finding but appears to more infectious process. Cannot rule out malignancy at this time. Although the size of it would suggest that this would have been present in previous CAT scans but was not. Therefore, the best option will be to perform a bronchoscopy for further sampling. 05/19/2023 the patient is here for a pulmonary follow-up visit. Overall she is feeling a little better. Still complaining of shortness of breath with activity. Moderate severity. Her chest congestion has improved. She was again admitted to the hospital with achromobacter pneumonia. She had a PICC line placed or midline place and was started on meropenem. She is going to be on the therapy for total of 21 days. She is tolerating it well. Her white count still elevated and she is concerned. Her bronchoscopy cultures also cultured Aspergillus fumigatus. Therefore I am concerned for the possibility of an aspergilloma involving in the masslike density. The patient needed to be treated for the alcohol back to pressure also needs to be treated for the Aspergillus. Therefore since she is doing better tolerating the gabapentin will go ahead and start her on voriconazole. However, while she is on the voriconazole she will have to stop the rifampin that she uses for the mycobacterial disease. The patient has significant amount of lower respiratory smoldering infections making difficult to treat. The patient also has a history Pseudomonas and she will be starting her inhaled tobramycin once she completes her meropenem. When she completes a course of voriconazole will go ahead and repeat her CT scan to follow-up with the masslike density, which, I am hoping that it has either resolved or resolving. If the area continues to be abnormal after all these medical interventions then further diagnostic interventions may be warranted her however, also need to consider the patient has respiratory capacity is significantly decreased and any intervention would be high risk. She continues to use her chest PT and continue to use her percussion vest. As far as medical therapy were also limited by the cardiac history and therefore we need to be very careful not to aggressively treat her pulmonary issues knowing that it can also worsen her cardiac condition. She continues use oxygen with good effect. No further changes at this time. The patient follow-up in several weeks. 07/23/2023 the patient is here for a pulmonary follow-up visit. The patient is nervous about her CT scan results. I was able to give her reassuring news. The nodular density that was in the left upper lobe resolved after the 2 months' worth of voriconazole. Therefore, we can go ahead and have her stop the voriconazole. She will go back on the inhaled tobramycin and also on the rifampin. The patient has been a little more congested so I believe this will be helpful. She still has evidence of active mycobacterial disease so therefore she needs to stay on the therapy. She has bronchiectasis in the inhaled tobramycin is been very effective for. The patient has been complaining of this burning sensation in the chest. Sometimes he can be pretty severe. For some reason response to prednisone although is not really her breathing. I did provide her with gabapentin that she can use at nighttime to help her with neuropathic pain. The patient also needs to follow-up with cardiology to make sure that she does not have active cardiac issue going on. She continues use oxygen with good effect. The patient also continues with the current respiratory therapy. Overall she is doing better. However, she does have significant comorbidities with extensive emphysema. Will continue monitoring him closely. 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 Pulmonary nodules COPD (chronic obstructive pulmonary disease) Bronchiectasis Surgical History Hx of colonoscopy History of bronchoscopy History of appendectomy Social History Household Members: Other Household Members Other:: alone Housing: Condominium Are you a primary healthcare analyst to a significant other at home: No Do you presently have visiting nurse or other home services: No Unable to assess alcohol history related to: Unknown Alcohol intake: never Patient Tobacco Use Status: Former Tobacco user Quit Date: 1998 Tobacco use type: Cigarette Years Smoked: 35 Second Hand Smoke Exposure: No Advance Directives Date on File: 01/31/22 service: No Current occupational status: retired Review of Systems Const Reports fatigue, Denies fever(s), Denies malaise and Denies night sweats ENT Denies change in voice, Denies lip swelling, Denies mouth pain, Reports nasal congestion, Reports nasal discharge and Denies tongue swelling Card Denies chest pain and Reports dyspnea on exertion Resp Denies chest congestion, Reports cough, Denies hemoptysis, Reports dyspnea on exertion, Reports wheezing and Reports other (burning) GI Denies abdominal pain Musc Denies no additional complaints Neuro Denies Neuro-related abnormal movements Psych Denies no additional complaints Endo Reports fatigue Sherwin/Lymph Denies easy bleeding and Denies lymphadenopathy Aller/Immun Denies lip swelling, Denies tongue swelling and Reports wheezing Physical Exam Vital Signs: Last Vital Signs Pulse 86 07/23/23 11:11 BP 126/78 07/23/23 11:11 Pulse Ox 95 07/23/23 11:11 Oxygen Delivery Method Nasal Cannula 07/23/23 11:11 Oxygen Flow Rate 2 07/23/23 11:11 BMI result Body Mass Index 21.5 Last Vital Signs Temp 98.1 F 11/14/22 12:00 Pulse 87 11/14/22 12:00 Resp 19 11/14/22 12:00 BP 126/61 11/14/22 12:00 Pulse Ox 95 11/14/22 12:00 O2 Del Method Nasal Cannula 11/14/22 12:00 O2 Flow Rate 2 11/14/22 08:00 Oxygen Flow Rate 4 11/11/22 14:50 BMI result Body Mass Index 23.2 Const General: alert Neck Neck: Yes normal visual inspection, Yes full ROM and Yes no lymphadenopathy Chest Chest palpation & inspection: normal inspection of the chest Resp Effort & Inspection: prolonged expiratory phase Auscultation: no crackles, rhonchi, wheezes and diminished lung sounds Cardio Rate: regular rate Rhythm: regular rhythm Heart sounds: S1 normal heart sound present and S2 normal heart sound present GI Palpation (GI): Soft to palpation and Tenderness to palpation present (GI) in the LLQ Auscultation: normal bowel sounds Skin General skin exam: rashes and/or lesions noted Results Reviewed Results Reviewed: Personally reviewed CT chest with resolution of the BANDAR density 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 - Aspergillosis, unspecified (2) Bronchiectasis: Code(s): J47.9 - Bronchiectasis, uncomplicated Qualifiers: Bronchiectasis type: uncomplicated Qualified Code(s): J47.9 - Bronchiectasis, uncomplicated (3) Pulmonary nodules: Comment: Code(s): R91.8 - Other nonspecific abnormal finding of lung field (4) COPD (chronic obstructive pulmonary disease): Code(s): J44.9 - Chronic obstructive pulmonary disease, unspecified Qualifiers: COPD type: chronic bronchitis Chronic bronchitis type: mucopurulent Qualified Code(s): J41.1 - Mucopurulent chronic bronchitis (5) Nontuberculous mycobacterial disease of lung: Code(s): A31.0 - Pulmonary mycobacterial infection (6) Pseudomonas respiratory infection: Code(s): J98.8 - Other specified respiratory disorders; B96.5 - Pseudomonas (aeruginosa) (mallei) (pseudomallei) as the cause of diseases classified elsewhere Plan complete voriconazole Continue Avtar 28 days on, 28 days off, will restart once she completes her meropenem restart Rifampin MWF once the voriconazole is completed continue Advair/Spiriva start Gabapentin 200mg qHS ROBERT as needed continue budesonide oxygen with activity and sleep continue CPT F/U 6-8 weeks Medications: New gabapentin 200 mg (2 x 100 mg) PO BEDTIME 30 days 60 caps 11RF Coding Level of Care Code Est Pt Level 5 (19710) Diagnoses Aspergilloma B44.9 Bronchiectasis without complication J47.9 Bronchiectasis type: uncomplicated Pulmonary nodules R91.8 Mucopurulent chronic bronchitis J41.1 COPD type: chronic bronchitis Chronic bronchitis type: mucopurulent Nontuberculous mycobacterial disease of lung A31.0 Pseudomonas respiratory infection J98.8; B96.5 Time Spent (min) 40
== END 2023-07-23 11:42 | disposition home or self-care (01) ==
PROVIDERS: PCP Internal Medicine; Visit Provider Hospitalist
DX: J41.1 Mucopurulent chronic bronchitis (principal); B44.9 Aspergillosis, unspecified; R91.8 Other nonspecific abnormal finding of lung field; A31.0 Pulmonary mycobacterial infection; J98.8 Other specified respiratory disorders; B96.5 Pseudomonas (aeruginosa) (mallei) (pseudomallei) as the cause of diseases classified elsewhere
CPT/HCPCS: 99215

== ENCOUNTER → 2023-07-23 11:03 | Outpatient (BNVA) | payer MEDICARE, SELFPAY | PROVIDERS: PCP Internal Medicine; Visit Provider Hospitalist | DX: B44.9 Aspergillosis, unspecified (principal); B96.5 Pseudomonas (aeruginosa) (mallei) (pseudomallei) as the cause of diseases classified elsewhere; R91.8 Other nonspecific abnormal finding of lung field; J47.9 Bronchiectasis, uncomplicated; J44.1 Chronic obstructive pulmonary disease with (acute) exacerbation; A31.0 Pulmonary mycobacterial infection; J98.8 Other specified respiratory disorders | CPT/HCPCS: 99212 ==

== ENCOUNTER 2023-09-25 11:03 | Outpatient (AMB) | payer MEDICARE, SELFPAY ==
[2023-09-25 11:11] VITALS: PULSE 90; O2SAT 93; BMI 21.5
--- NOTE | 2023-09-25 11:11 | A.OFFVIS_ITS ---
Intake Vital Signs 09/25/23 11:11 Height 5 ft 6 in Weight 133 lb BMI 21.5 Pulse 90 Pulse Source Pulse Oximeter Pulse Oximetry (%) 93 Oxygen Delivery Method Room Air Comment 2 Liters Oxygen([facility]) Intake Visit Reasons: COPD Qa Tech Required: No Allergies No Known Allergies Allergy (Verified 09/25/23 11:13) HPI HPI Comments History of Present Illness Details Patient is a 82-year-old lady with a known history of COPD in addition to tracheobronchomalacia and also some degree of bronchiectasis 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 She has had bronchoscopies in the past with positive stenotrophomonas. She also has a cardiac condition including AFib a flutter. She had a prolonged hospitalization the summer was very sick. She started to feel better. She completed a Holter monitor. She is still having issues with reflux. She is maintaining a diet and taking medications to minimize the acid. The patient did have a CT scan of the chest March 16, 2019 that we personally. The pulmonary nodules appear to be stable. She does have some evidence of airspace disease in the bases bring up the question of micro aspirations into the lungs. This appears to be a little bit worse on the left side in the right with compared to previous. Therefore, we talked about the importance of micro aspirations and minimizing the apparent we can consider promotility agents including Reglan, azithromycin and temporary done. However, domperidone and azithromycin do cause QT prolongation with the dangers with her sotalol. Right now Reglan is an option but will hold off at this time since she is doing well. We did review her CT scan of the chest demonstrating interval improvement her pulmonary nodules. She still has bronchiectatic changes and bronchitis looking airways, but, overall better. The right lower lobe has more dense airspace disease but that even looks improved when compared to her previous CAT scan from [facility]. She still waiting to get a portable oxygen concentrator. She has been working with [facility] to get that arranged. 05/31/2022 the patient is here for sick visit. She has been doing a lot better when she started the amikacin nebulized therapy. Her chest congestion has improved dramatically. Her wheezing has improved as well. She also continues with the other on the mycobacterial antibiotics. Although she has been noticing that she has been more hypoxic and more short of breath. This is been the case for the last 2 or 3 days. She has had to increase her oxygen requirements. She was desaturating to the low 80s and she called our office. We had her come in we did a 6 minute walk test. The patient did need continues oxygen. The patient also had a chest x-ray which demonstrated no acute disease. At this point the patient may be having a reaction to the amikacin. Therefore she is going to hold over the weekend and start a Medrol Danilo to see if she has any improvement. If however she has any worsening hypoxia worsening symptoms she is to come to the ER for further evaluation. if she is doing better and she is able to start the amikacin she will watch for any adverse effects. 07/09/2022 the patient is here for a pulmonary follow-up visit. She is tolerating the amikacin better. She is doing every other day. I am hopeful that in the coming months we can consider trying her back in daily. She continues on the ethambutol and rifampin 3 times a week. Her cough mucus has been significantly better. It was a lot better when she was on amikacin daily but that was hard to for her to tolerate due to her significant coughing irritation of her oral airway. May be a component of tolerance therefore, she should hopefully tolerated better in that the the case and a few months after she gets used to it. She had sputum cultures sent back in May 2022 demonstrating no further organisms and mycobacteria. I did provide her with another cup in order for her to provide us with another sample. She continues with respiratory therapy. She also continues with her oxygen. Overall the patient is doing better and therefore she should start performing pulmonary rehabilitation. She can do this in person or in the pulmonary lab. I will have her undergo PFTs in order to get her into the lab to do in person training. 10/16/2021 into the patient is here for pulmonary follow-up visit. She was briefly in the hospital with worsening respiratory symptoms. She had acute on chronic hypoxic respiratory failure. The patient did have a chest x-ray demonstrating bilateral hazy opacities consistent with pneumonitis. Likely secondary to the inhaled amikacin. She was given Solu-Medrol then prednisone and her symptoms improved dramatically along with her chest x-ray per from a she got home she restart DM he is in 3 times a week but still developed worsening shortness of breath he required more oxygen. At this point the patient tried and failed the amikacin. The the a on a good note the patient did a have improved her wheezing also chest congestion Beth's the last few months that she use the inhaled antibiotics she did have a positive response. She is going to continue with the ethambutol and the rifampin for now. The patient will need prednisone taper. Will plan to follow-up in 4 weeks. In the meantime we also looked at her blood work and sputum culture which grew Aspergillus. She does have a garden in her home and she uses hydroponics. Unfortunately, this is putting her at risk for mold exposures. No evidence of an active aspergillus infection at this time, likely colonizer. We will monitor for now. 11/06/2022 the patient is here for sick visit. She was feeling well for about 2 weeks and then she started feeling bad again. Chest congestion with green sputum and also feeling nauseous. She has had some subjective fevers and chills. She was supposed to test for COVID she has not done as of yet. The patient has been off the amikacin now for few weeks. Therefore, it is unclear if is related to the completion of the medication or there is a new infection. She has had multiple positive cultures in the past. I did recommend getting a sputum culture. She does have a planned trip for the beginning of November. Will try to treat her empirically then in order for her to be able to go her trip. Also try to get sputum cultures. If the patient is no better she is to call the office. Otherwise we will plan to consider bronchoscopy when she is back in her trip in order to better get a sense of any ongoing infection that are making her worse. She continues use the oxygen therapy with good effect. 11/28/2022 the patient is here for pulmonary follow-up visit. The patient continues to have cough although says slowly improving. Her mucus is less thick and is very watery. Still having shortness of breath. She had not completed the prednisone. She has 3 more days of the IV antibiotics. She has significant bronchiectasis and now Pseudomonas. The patient is finishing up the course of MV antibiotics but continues to be symptomatic. Therefore I do believe that she will benefit from inhaled tobramycin. The patient will start a trial mycin 28 days on and 28 days off. She should continue with current respiratory therapy in the chest physical therapy. Right now will holding off on the antibiotics for the mycobacterial disease. That is okay for now will going to focus on the Pseudomonas once the patient is able to start the inhaled tobramycin will start working on adding the anti mycobacterial therapy. 01/22/2023 the patient is here for pulmonary follow-up visit. She started the inhaled tobramycin. Has been very affecting beneficial. Her respiratory status is improved dramatically. Initially when she started she has developed a cough and she had some desaturation but after that she has been feeling a lot better. Now she completed 28 days and she is off it for the last week. She has noted some slight increase congestion but she is hoping that she stays well. She is using her chest percussion vest and she is using her percussion valve for chest PT. She is also using nebulized therapy along with the budesonide. The patient overall doing well. We did look at her last CT scan from 2020 demonstrating a pulmonary nodule which is new measuring 4 mm in size. She is going to require repeat CT scan since has been more than a year. Will have her return in [address] scan at this time. The patient has any issues prio r to that she will call for an earlier assessment. 04/23/2023 the patient is here for a pulmonary follow-up visit. The patient has not been feeling well lately. She has been having to use her oxygen more regularly. She is currently on the inhaled tobramycin which has been helpful in clearing out some of the chest congestion related to the Pseudomonas and also partially helpful in with the mycobacterial disease. She continues on the rifampin as well. She did stop the family told the past. We did review her recent CT scan of the chest demonstrating a masslike consolidation in the anter ior segment of the left upper lobe. This is a worrisome finding but appears to more infectious process. Cannot rule out malignancy at this time. Although the size of it would suggest that this would have been present in previous CAT scans but was not. Therefore, the best option will be to perform a bronchoscopy for further sampling. 05/19/2023 the patient is here for a pulmonary follow-up visit. Overall she is feeling a little better. Still complaining of shortness of breath with activity. Moderate severity. Her chest congestion has improved. She was again admitted to the hospital with achromobacter pneumonia. She had a PICC line placed or midline place and was started on meropenem. She is going to be on the therapy for total of 21 days. She is tolerating it well. Her white count still elevated and she is concerned. Her bronchoscopy cultures also cultured Aspergillus fumigatus. Therefore I am concerned for the possibility of an aspergilloma involving in the masslike density. The patient needed to be treated for the alcohol back to pressure also needs to be treated for the Aspergillus. Therefore since she is doing better tolerating the gabapentin will go ahead and start her on voriconazole. However, while she is on the voriconazole she will have to stop the rifampin that she uses for the mycobacterial disease. The patient has significant amount of lower respiratory smoldering infections making difficult to treat. The patient also has a history Pseudomonas and she will be starting her inhaled tobramycin once she completes her meropenem. When she completes a course of voriconazole will go ahead and repeat her CT scan to follow-up with the masslike density, which, I am hoping that it has either resolved or resolving. If the area continues to be abnormal after all these medical interventions then further diagnostic interventions may be warranted her however, also need to consider the patient has respiratory capacity is significantly decreased and any intervention would be high risk. She continues to use her chest PT and continue to use her percussion vest. As far as medical therapy were also limited by the cardiac history and therefore we need to be very careful not to aggressively treat her pulmonary issues knowing that it can also worsen her cardiac condition. She continues use oxygen with good effect. No further changes at this time. The patient follow-up in several weeks. 07/23/2023 the patient is here for a pulmonary follow-up visit. The patient is nervous about her CT scan results. I was able to give her reassuring news. The nodular density that was in the left upper lobe resolved after the 2 months' worth of voriconazole. Therefore, we can go ahead and have her stop the voriconazole. She will go back on the inhaled tobramycin and also on the rifampin. The patient has been a little more congested so I believe this will be helpful. She still has evidence of active mycobacterial disease so therefore she needs to stay on the therapy. She has bronchiectasis in the inhaled tobramycin is been very effective for. The patient has been complaining of this burning sensation in the chest. Sometimes he can be pretty severe. For some reason response to prednisone although is not really her breathing. I did provide her with gabapentin that she can use at nighttime to help her with neuropathic pain. The patient also needs to follow-up with cardiology to make sure that she does not have active cardiac issue going on. She continues use oxygen with good effect. The patient also continues with the current respiratory therapy. Overall she is doing better. However, she does have significant comorbidities with extensive emphysema. Will continue monitoring him closely. 09/25/2023 the patient is here for a pulmonary follow-up visit. The patient recently was at the [facility] where she was admitted with pneumonia. She was having the burning sensation in the chest. Seems to happen when she started to get more congested sickly. Therefore likely a sign of airway burden and mucus plugging. She was given vancomycin and also cefepime in the hospital. Shunt she was discharged on Levaquin which she did take for 3 days although she needs to be very careful with QT. the patient does take sotalol. Did helping her burning sensation in the chest did improve on that therapy. Now she is at home she is off the prednisone. We did talk about a small dose of prednisone although she has osteoporosis and therefore risk for having further bone injury and fractures. Therefore I will give her some prednisone but not to take it right now unless she gets sick she can do short burst low dose. In addition to that the patient has been back on the inhaled tobramycin. This will help decrease some of the organisms from her lungs. Will go ahead and start her on a small dose of doxycycline in order to treat for Staph related chinstrap related infections. The patient has had significant probably microbial infection. And also from the Modic standpoint the patient unfortunately has not been able to use the macrolide therapy because of the sotalol. Although she is seen by new media buyer and is felt that maybe she can come off the sotalol so therefore if that is the case we can start her on azithromycin. I will reach out to her new media buyer to try a figure out how we can go about the change. She continues use the oxygen with good therapy. 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 Pulmonary nodules COPD (chronic obstructive pulmonary disease) Bronchiectasis Surgical History Hx of colonoscopy History of bronchoscopy History of appendectomy Social History Household Members: Other Household Members Other:: alone [facility] Are you a primary healthcare market consultant to a significant other at home: No Do you presently have visiting nurse or other home services: No Unable to assess alcohol history related to: Unknown Alcohol intake: never Patient Tobacco Use Status: Former Tobacco user Quit Date: 1998 Tobacco use type: Cigarette Years Smoked: 35 Second Hand Smoke Exposure: No Advance Directives Date on File: 01/31/22 service: No Current occupational status: retired Review of Systems Const Reports fatigue, Denies fever(s), Denies malaise and Denies night sweats ENT Denies change in voice, Denies lip swelling, Denies mouth pain, Reports nasal congestion, Reports nasal discharge and Denies tongue swelling Card Denies chest pain and Reports dyspnea on exertion Resp Denies chest congestion, Reports cough, Denies hemoptysis, Reports dyspnea on exertion, Reports wheezing and Reports other (burning) GI Denies abdominal pain Musc Denies no additional complaints Neuro Denies Neuro-related abnormal movements Psych Denies no additional complaints Endo Reports fatigue Sherwin/Lymph Denies easy bleeding and Denies lymphadenopathy Aller/Immun Denies lip swelling, Denies tongue swelling and Reports wheezing Physical Exam Vital Signs: Last Vital Signs Pulse 90 09/25/23 11:11 Pulse Ox 93 09/25/23 11:11 Oxygen Delivery Method Room Air 09/25/23 11:11 BMI result Body Mass Index 21.5 Last Vital Signs Temp 98.1 F 11/14/22 12:00 Pulse 87 11/14/22 12:00 Resp 19 11/14/22 12:00 BP 126/61 11/14/22 12:00 Pulse Ox 95 11/14/22 12:00 O2 Del Method Nasal Cannula 11/14/22 12:00 O2 Flow Rate 2 06/01/23 08:00 Oxygen Flow Rate 4 11/11/22 14:50 BMI result Body Mass Index 23.2 Const General: alert Neck Neck: Yes normal visual inspection, Yes full ROM and Yes no lymphadenopathy Chest Chest palpation & inspection: normal inspection of the chest Resp Effort & Inspection: prolonged expiratory phase Auscultation: no crackles, rhonchi, wheezes and diminished lung sounds Cardio Rate: regular rate Rhythm: regular rhythm Heart sounds: S1 normal heart sound present and S2 normal heart sound present GI Palpation (GI): Soft to palpation and Tenderness to palpation present (GI) in the LLQ Auscultation: normal bowel sounds Skin General skin exam: rashes and/or lesions noted Results Reviewed Results Reviewed: Personally reviewed CT scan of the chest from July 2023. Extensive emphysema in the upper lung zones. She also has extensive bronchiectasis with tree in budding of the lower lung zones. She had a CT scan also more recently August at [facility] documented similar findings. 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 - Aspergillosis, unspecified (2) Bronchiectasis: Code(s): J47.9 - Bronchiectasis, uncomplicated Qualifiers: Bronchiectasis type: uncomplicated Qualified Code(s): J47.9 - Bronchiectasis, uncomplicated (3) Pulmonary nodules: Comment: Code(s): R91.8 - Other nonspecific abnormal finding of lung field (4) COPD (chronic obstructive pulmonary disease): Code(s): J44.9 - Chronic obstructive pulmonary disease, unspecified Qualifiers: COPD type: chronic bronchitis Chronic bronchitis type: mucopurulent Qualified Code(s): J41.1 - Mucopurulent chronic bronchitis (5) Nontuberculous mycobacterial disease of lung: Code(s): A31.0 - Pulmonary mycobacterial infection (6) Pseudomonas respiratory infection: Code(s): J98.8 - Other specified respiratory disorders; B96.5 - Pseudomonas (aeruginosa) (mallei) (pseudomallei) as the cause of diseases classified elsewhere Plan Continue Avtar 28 days on, 28 days off continue Rifampin MWF holding Ethambutol start Doxycycline daily continue Advair/Spiriva Gabapentin 200mg qHS ROBERT as needed continue budesonide oxygen with activity and sleep continue CPT prednisone if worsens If the patient is able to come off sotalol then we will go ahead and switch her to azithromycin for mycobacterial therapy along with ethambutol and rifampin and she should continue with the inhaled tobramycin. F/U 6-8 weeks Medications: New prednisone 20 mg (2 x 10 mg) PO DAILY 60 tabs 1RF 30 days doxycycline monohydrate 100 mg PO DAILY 30 tabs 5RF 30 days Coding Level of Care Code Est Pt Level 5 (48585) Diagnoses Aspergilloma B44.9 Bronchiectasis without complication J47.9 Bronchiectasis type: uncomplicated Pulmonary nodules R91.8 Mucopurulent chronic bronchitis J41.1 COPD type: chronic bronchitis Chronic bronchitis type: mucopurulent Nontuberculous mycobacterial disease of lung A31.0 Pseudomonas respiratory infection J98.8; B96.5 Time Spent (min) 45
== END 2023-09-25 11:40 | disposition home or self-care (01) ==
PROVIDERS: PCP Internal Medicine; Visit Provider Hospitalist
DX: J41.1 Mucopurulent chronic bronchitis (principal); J47.9 Bronchiectasis, uncomplicated; B44.9 Aspergillosis, unspecified; R91.8 Other nonspecific abnormal finding of lung field; A31.0 Pulmonary mycobacterial infection; J98.8 Other specified respiratory disorders; B96.5 Pseudomonas (aeruginosa) (mallei) (pseudomallei) as the cause of diseases classified elsewhere
CPT/HCPCS: 99215

== ENCOUNTER → 2023-09-25 11:03 | Outpatient (BNVA) | payer MEDICARE, SELFPAY | PROVIDERS: PCP Internal Medicine; Visit Provider Hospitalist | DX: B44.9 Aspergillosis, unspecified (principal); R91.8 Other nonspecific abnormal finding of lung field; J47.9 Bronchiectasis, uncomplicated; J41.1 Mucopurulent chronic bronchitis; J98.8 Other specified respiratory disorders; A31.0 Pulmonary mycobacterial infection; B96.5 Pseudomonas (aeruginosa) (mallei) (pseudomallei) as the cause of diseases classified elsewhere | CPT/HCPCS: 99212 ==

== ENCOUNTER 2023-11-06 10:26 | Outpatient (AMB) | payer MEDICARE, SELFPAY ==
--- NOTE | 2023-11-06 10:46 | A.OFFVIS_ITS ---
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 She has had bronchoscopies in the past with positive stenotrophomonas. She also has a cardiac condition including AFib a flutter. She had a prolonged hospitalization the summer was very sick. She started to feel better. She completed a Holter monitor. She is still having issues with reflux. She is maintaining a diet and taking medications to minimize the acid. The patient did have a CT scan of the chest March 16, 2019 that we personally. The pulmonary nodules appear to be stable. She does have some evidence of airspace disease in the bases bring up the question of micro aspirations into the lungs. This appears to be a little bit worse on the left side in the right with compared to previous. Therefore, we talked about the importance of micro aspirations and minimizing the apparent we can consider promotility agents including Reglan, azithromycin and temporary done. However, domperidone and azithromycin do cause QT prolongation with the dangers with her sotalol. Right now Reglan is an option but will hold off at this time since she is doing well. We did review her CT scan of the chest demonstrating interval improvement her pulmonary nodules. She still has bronchiectatic changes and bronchitis looking airways, but, overall better. The right lower lobe has more dense airspace disease but that even looks improved when compared to her previous CAT scan from [facility]. She still waiting to get a portable oxygen concentrator. She has been working with [facility] to get that arranged. 07/23/2023 the patient is here for a pulmonary follow-up visit. The patient is nervous about her CT scan results. I was able to give her reassuring news. The nodular density that was in the left upper lobe resolved after the 2 months' worth of voriconazole. Therefore, we can go ahead and have her stop the voriconazole. She will go back on the inhaled tobramycin and also on the rifampin. The patient has been a little more congested so I believe this will be helpful. She still has evidence of active mycobacterial disease so therefore she needs to stay on the therapy. She has bronchiectasis in the inhaled tob ramycin is been very effective for. The patient has been complaining of this burning sensation in the chest. Sometimes he can be pretty severe. For some reason response to prednisone although is not really her breathing. I did provide her with gabapentin that she can use at nighttime to help her with neuropathic pain. The patient also needs to follow-up with cardiology to make sure that she does not have active cardiac issue going on. She continues use oxygen with good effect. The patient also continues with the current respiratory therapy. Overall she is doing better. However, she does have significant comorbidities with extensive emphysema. Will continue monitoring him closely. 09/25/2023 the patient is here for a pulmonary follow-up visit. The patient recently was at the [facility] where she was admitted with pneumonia. She was having the burning sensation in the chest. Seems to happen when she started to get more congested sickly. Therefore likely a sign of airway burden and mucus plugging. She was given vancomycin and also cefepime in the hospital. Shunt she was discharged on Levaquin which she did take for 3 days although she needs to be very careful with QT. the patient does take sotalol. Did helping her burning sensation in the chest did improve on that therapy. Now she is at home she is off the prednisone. We did talk about a sm all dose of prednisone although she has osteoporosis and therefore risk for having further bone injury and fractures. Therefore I will give her some prednisone but not to take it right now unless she gets sick she can do short burst low dose. In addition to that the patient has been back on the inhaled tobramycin. This will help decrease some of the organisms from her lungs. Will go ahead and start her on a small dose of doxycycline in order to treat for Staph related chinstrap related infections. The patient has had significant probably microbial infection. And also from the [facility] standpoint the patient unfortunately has not been able to use the macrolide therapy because of the sotalol. Although she is seen by new hull grinder and is felt that maybe she can come off the sotalol so therefore if that is the case we can start her on azithromycin. I will reach out to her new hull grinder to try a figure out how we can go about the change. She continues use the oxygen with good therapy. 11/06/2023 the patient is here for a pulmonary follow-up visit. Overall she is feeling better. Her burning chest sensation has improved. The patient is still having to use her oxygen more regularly. She is tolerating the doxycycline daily. She has also taking the rifampin. In addition to that she has been taking the inhaled tobramycin 28 days on 20 days off. The days that she is not using the inhaled tobramycin she started getting little bit more secretion although still clear or light in color. We again talked about the azithromycin. Currently she is still on sotalol. Her hull grinder did mention the possibility of her coming off sotalol. But at this point since she is doing well from the doxycycline and we already treating all the organisms with current medication regimen best just to stay on when she is on right now specially with a very complicated medical issues. The patient did have an incident here in the office where she tripped and her oxygen concentrator fell landing on the cannula receptor and breaking. Therefore she will reach out to [employer] and will try to get that fixed. We did review her PFTs. There just a little bit over a year. I do believe that she should start participating in pulmonary rehabilitation specially now with the heated humidity will be hard for her to be outside. The patient is willing to start this at this time although she is concerned about her stamina. 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 Pulmonary nodules COPD (chronic obstructive pulmonary disease) Bronchiectasis Surgical History Hx of colonoscopy History of bronchoscopy History of appendectomy Social History Household Members: Other Household Members Other:: alone Housing: Condominium Are you a primary career information specialist to a significant other at home: No Do you presently have visiting nurse or other home services: No Unable to assess alcohol history related to: Unknown Alcohol intake: never Patient Tobacco Use Status: Former Tobacco user Quit Date: 1998 Tobacco use type: Cigarette Years Smoked: 35 Second Hand Smoke Exposure: No Advance Directives Date on File: 01/31/22 service: No Current occupational status: retired Review of Systems Const Reports fatigue, Denies fever(s), Denies malaise and Denies night sweats ENT Denies change in voice, Denies lip swelling, Denies mouth pain, Reports nasal congestion, Reports nasal discharge and Denies tongue swelling Card Denies chest pain and Reports dyspnea on exertion Resp Denies chest congestion, Reports cough, Denies hemoptysis, Reports dyspnea on exertion and Reports wheezing GI Denies abdominal pain Musc Denies no additional complaints Neuro Denies Neuro-related abnormal movements Psych Denies no additional complaints Endo Reports fatigue Sherwin/Lymph Denies easy bleeding and Denies lymphadenopathy Aller/Immun Denies lip swelling, Denies tongue swelling and Reports wheezing Physical Exam Vital Signs: Last Vital Signs Pulse 87 11/06/23 11:01 Pulse Ox 97 11/06/23 11:01 Oxygen Delivery Method Room Air 11/06/23 11:01 BMI result Body Mass Index 21.4 Last Vital Signs Temp 98.1 F 11/14/22 12:00 Pulse 87 11/14/22 12:00 Resp 19 11/14/22 12:00 BP 126/61 11/14/22 12:00 Pulse Ox 95 11/14/22 12:00 O2 Del Method Nasal Cannula 11/14/22 12:00 O2 Flow Rate 2 11/14/22 08:00 Oxygen Flow Rate 4 11/11/22 14:50 BMI result Body Mass Index 23.2 Const General: alert Neck Neck: Yes normal visual inspection, Yes full ROM and Yes no lymphadenopathy Chest Chest palpation & inspection: normal inspection of the chest Resp Effort & Inspection: prolonged expiratory phase Auscultation: no crackles, no rhonchi, wheezes and diminished lung sounds Cardio Rate: regular rate Rhythm: regular rhythm Heart sounds: S1 normal heart sound present and S2 normal heart sound present GI Palpation (GI): Soft to palpation and Tenderness to palpation present (GI) in the LLQ Auscultation: normal bowel sounds Skin General skin exam: rashes and/or lesions noted Results Reviewed Results Reviewed: perspnally reviewed CT chest 07/2023 with resolution of aspergiloma,emphysema Assessment & Plan Assessment & Plan (1) Bronchiectasis: Code(s): J47.9 - Bronchiectasis, uncomplicated Category: Medical Qualifiers: Bronchiectasis type: uncomplicated Qualified Code(s): J47.9 - Bronchiectasis, uncomplicated (2) Pulmonary nodules: Comment: Code(s): R91.8 - Other nonspecific abnormal finding of lung field Category: Medical (3) COPD (chronic obstructive pulmonary disease): Code(s): J44.9 - Chronic obstructive pulmonary disease, unspecified Category: Medical Qualifiers: COPD type: chronic bronchitis Chronic bronchitis type: mucopurulent Qualified Code(s): J41.1 - Mucopurulent chronic bronchitis (4) Nontuberculous mycobacterial disease of lung: Code(s): A31.0 - Pulmonary mycobacterial infection Category: Medical (5) Pseudomonas respiratory infection: Code(s): J98.8 - Other specified respiratory disorders; B96.5 - Pseudomonas (aeruginosa) (mallei) (pseudomallei) as the cause of diseases classified elsewhere Category: Medical (6) Aspergilloma: Comment: resolved on CT chest 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 - Aspergillosis, unspecified Category: Medical Plan Continue Avtar 28 days on, 28 days off continue Rifampin MWF holding Ethambutol continue Doxycycline daily continue Advair/Spiriva Gabapentin 200mg qHS ROBERT as needed continue budesonide oxygen with activity and sleep continue CPT start Pulmonary rehab F/U 6-8 weeks Orders: Orders Pulmonary Rehab Today J41.1 - Mucopurulent chronic bronchitis Coding Level of Care Code Est Pt Level 5 (16010) Diagnoses Bronchiectasis without complication J47.9 Bronchiectasis type: uncomplicated Pulmonary nodules R91.8 Mucopurulent chronic bronchitis J41.1 COPD type: chronic bronchitis Chronic bronchitis type: mucopurulent Nontuberculous mycobacterial disease of lung A31.0 Pseudomonas respiratory infection J98.8; B96.5 Aspergilloma B44.9 Time Spent (min) 40
[2023-11-06 11:01] VITALS: PULSE 87; O2SAT 97; BMI 21.4
== END 2023-11-06 11:24 | disposition home or self-care (01) ==
PROVIDERS: PCP Internal Medicine; Visit Provider Hospitalist
DX: J47.9 Bronchiectasis, uncomplicated (principal); R91.8 Other nonspecific abnormal finding of lung field; J41.1 Mucopurulent chronic bronchitis; A31.0 Pulmonary mycobacterial infection; J98.8 Other specified respiratory disorders; B96.5 Pseudomonas (aeruginosa) (mallei) (pseudomallei) as the cause of diseases classified elsewhere; B44.9 Aspergillosis, unspecified
CPT/HCPCS: 99215

== ENCOUNTER → 2023-11-06 10:26 | Outpatient (BNVA) | payer MEDICARE, SELFPAY | PROVIDERS: PCP Internal Medicine; Visit Provider Hospitalist | DX: R91.8 Other nonspecific abnormal finding of lung field (principal); J47.9 Bronchiectasis, uncomplicated; J41.1 Mucopurulent chronic bronchitis; J98.8 Other specified respiratory disorders; A31.0 Pulmonary mycobacterial infection; B44.9 Aspergillosis, unspecified; B96.5 Pseudomonas (aeruginosa) (mallei) (pseudomallei) as the cause of diseases classified elsewhere | CPT/HCPCS: 99212 ==

== ENCOUNTER 2023-12-30 10:36 | Outpatient (AMB) | payer MEDICARE, SELFPAY ==
[2023-12-30 10:45] VITALS: BP 142/70; PULSE 76; O2SAT 93; BMI 21.0
--- NOTE | 2023-12-30 10:45 | MHC.OFFVIS ---
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 She has had bronchoscopies in the past with positive stenotrophomonas. She also has a cardiac condition including AFib a flutter. She had a prolonged hospitalization the summer was very sick. She started to feel better. She completed a Holter monitor. She is still having issues with reflux. She is maintaining a diet and taking medications to minimize the acid. The patient did have a CT scan of the chest March 16, 2019 that we personally. The pulmonary nodules appear to be stable. She does have some evidence of airspace disease in the bases bring up the question of micro aspirations into the lungs. This appears to be a little bit worse on the left side in the right with compared to previous. Therefore, we talked about the importance of micro aspirations and minimizing the apparent we can consider promotility agents including Reglan, azithromycin and temporary done. However, domperidone and azithromycin do cause QT prolongation with the dangers with her sotalol. Right now Reglan is an option but will hold off at this time since she is doing well. We did review her CT scan of the chest demonstrating interval improvement her pulmonary nodules. She still has bronchiectatic changes and bronchitis looking airways, but, overall better. The right lower lobe has more dense airspace disease but that even looks improved when compared to her previous CAT scan from [facility]. She still waiting to get a portable oxygen concentrator. She has been working with [facility] to get that arranged. 07/23/2023 the patient is here for a pulmonary follow-up visit. The patient is nervous about her CT scan results. I was able to give her reassuring news. The nodular density that was in the left upper lobe resolved after the 2 months' worth of voriconazole. Therefore, we can go ahead and have her stop the voriconazole. She will go back on the inhaled tobramycin and also on the rifampin. The patient has been a little more congested so I believe this will be helpful. She still has evidence of active mycobacterial disease so therefore she needs to stay on the therapy. She has bronchiectasis in the inhaled tobramycin is been very effective for. The patient has been complaining of this burning sensation in the chest. Sometimes he can be pretty severe. For some reason response to prednisone although is not really her breathing. I did provide her with gabapentin that she can use at nighttime to help her with neuropathic pain. The patient also needs to follow-up with cardiology to make sure that she does not have active cardiac issue going on. She continues use oxygen with good effect. The patient also continues with the current respiratory therapy. Overall she is doing better. However, she does have significant comorbidities with extensive emphysema. Will continue monitoring him closely. 09/25/2023 the patient is here for a pulmonary follow-up visit. The patient recently was at the [facility] where she was admitted with pneumonia. She was having the burning sensation in the chest. Seems to happen when she started to get more congested sickly. Therefore likely a sign of airway burden and mucus plugging. She was given vancomycin and also cefepime in the hospital. Shunt she was discharged on Levaquin which she did take for 3 days although she needs to be very careful with QT. the patient does take sotalol. Did helping her burning sensation in the chest did improve on that therapy. Now she is at home she is off the prednisone. We did talk about a small dose of prednisone although she has osteoporosis and therefore risk for having further bone injury and fractures. Therefore I will give her some prednisone but not to take it right now unless she gets sick she can do short burst low dose. In addition to that the patient has been back on the inhaled tobramycin. This will help decrease some of the organisms from her lungs. Will go ahead and start her on a small dose of doxycycline in order to treat for Staph related chinstrap related infections. The patient has had significant probably microbial infection. And also from the [facility] standpoint the patient unfortunately has not been able to use the macrolide therapy because of the sotalol. Although she is seen by new contract administration specialist and is felt that maybe she can come off the sotalol so therefore if that is the case we can start her on azithromycin. I will reach out to her new contract administration specialist to try a figure out how we can go about the change. She continues use the oxygen with good therapy. 11/06/2023 the patient is here for a pulmonary follow-up visit. Overall she is feeling better. Her burning chest sensation has improved. The patient is still having to use her oxygen more regularly. She is tolerating the doxycycline daily. She has also taking the rifampin. In addition to that she has been taking the inhaled tobramycin 28 days on 20 days off. The days that she is not using the inhaled tobramycin she started getting little bit more secretion although still clear or light in color. We again talked about the azithromycin. Currently she is still on sotalol. Her contract administration specialist did mention the possibility of her coming off sotalol. But at this point since she is doing well from the doxycycline and we already treating all the organisms with current medication regimen best just to stay on when she is on right now specially with a very complicated medical issues. The patient did have an incident here in the office where she tripped and her oxygen concentrator fell landing on the cannula receptor and breaking. Therefore she will reach out to [employer] and will try to get that fixed. We did review her PFTs. There just a little bit over a year. I do believe that she should start participating in pulmonary rehabilitation specially now with the heated humidity will be hard for her to be outside. The patient is willing to start this at this time although she is concerned about her stamina. 12/30/2023 the patient is here for a pulmonary follow-up visit. The patient is starting to feel little bit better today. She has also been participating in pulmonary rehabilitation which is been helpful for her. She still has significant chest congestion. She does respond well to the inhaled BALBINA although it does irritate her lungs and constant chest tightness. When she is on the inhaled BALBINA she typically has less congestion. Currently she is on doxycycline treating her empirically for stenotrophomonas. The patient also had been treated for Aspergillus and also achromobacter previously. She is doing better from that standpoint. She does need a CT scan of the chest to address the previous findings. Her last CT scan was back in 10/04/2023. She does continue to use her oxygen good effect. She does have a portable oxygen concentrator the seems to be more portable for her. The patient returns 6 weeks. At that point will decide if she is going to continue the doxycycline. Also to note her mycobacterial cultures have been negative the last few times that they were checked. This is reassuring. Consider stopping the rifampin as well. Probably stop 1 medication at a time in view of her significant comorbidities. 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 Pulmonary nodules COPD (chronic obstructive pulmonary disease) Bronchiectasis Surgical History Hx of colonoscopy History of bronchoscopy History of appendectomy Social History Household Members: Other Household Members Other:: alone [facility] Are you a primary care tech to a significant other at home: No Do you presently have visiting nurse or other home services: No Unable to assess alcohol history related to: Unknown Alcohol intake: never Patient Tobacco Use Status: Former Tobacco user Tobacco use type: Cigarette Years Smoked: 35 Second Hand Smoke Exposure: No Advance Directives Date on File: 01/31/22 service: No Current occupational status: retired Review of Systems Const Reports fatigue, Denies fever(s), Denies malaise and Denies night sweats ENT Denies change in voice, Denies lip swelling, Denies mouth pain, Reports nasal congestion, Reports nasal discharge and Denies tongue swelling Card Denies chest pain and Reports dyspnea on exertion Resp Denies chest congestion, Reports cough, Denies hemoptysis, Reports dyspnea on exertion and Reports wheezing GI Denies abdominal pain Musc Denies no additional complaints Neuro Denies Neuro-related abnormal movements Psych Denies no additional complaints Endo Reports fatigue Sherwin/Lymph Denies easy bleeding and Denies lymphadenopathy Aller/Immun Denies lip swelling, Denies tongue swelling and Reports wheezing Physical Exam Vital Signs: Last Vital Signs Pulse 76 12/30/23 10:45 BP 142/70 H 12/30/23 10:45 Pulse Ox 93 07/16/24 10:45 Oxygen Delivery Method Room Air 12/30/23 10:45 BMI result Body Mass Index 21.0 Last Vital Signs Temp 98.1 F 11/14/22 12:00 Pulse 87 11/14/22 12:00 Resp 19 11/14/22 12:00 BP 126/61 11/14/22 12:00 Pulse Ox 95 11/14/22 12:00 O2 Del Method Nasal Cannula 11/14/22 12:00 O2 Flow Rate 2 11/14/22 08:00 Oxygen Flow Rate 4 11/11/22 14:50 BMI result Body Mass Index 23.2 Const General: alert Neck Neck: Yes normal visual inspection, Yes full ROM and Yes no lymphadenopathy Chest Chest palpation & inspection: normal inspection of the chest Resp Effort & Inspection: prolonged expiratory phase Auscultation: no crackles, no rhonchi, wheezes and diminished lung sounds Cardio Rate: regular rate Rhythm: regular rhythm Heart sounds: S1 normal heart sound present and S2 normal heart sound present GI Palpation (GI): Soft to palpation and Tenderness to palpation present (GI) in the LLQ Auscultation: normal bowel sounds Skin General skin exam: rashes and/or lesions noted Assessment & Plan Assessment & Plan (1) Bronchiectasis: Code(s): J47.9 - Bronchiectasis, uncomplicated Category: Medical Qualifiers: Bronchiectasis type: uncomplicated Qualified Code(s): J47.9 - Bronchiectasis, uncomplicated (2) Pulmonary nodules: Comment: Code(s): R91.8 - Other nonspecific abnormal finding of lung field Category: Medical (3) COPD (chronic obstructive pulmonary disease): Code(s): J44.9 - Chronic obstructive pulmonary disease, unspecified Category: Medical Qualifiers: COPD type: chronic bronchitis Chronic bronchitis type: mucopurulent Qualified Code(s): J41.1 - Mucopurulent chronic bronchitis (4) Nontuberculous mycobacterial disease of lung: Code(s): A31.0 - Pulmonary mycobacterial infection Category: Medical (5) Pseudomonas respiratory infection: Code(s): J98.8 - Other specified respiratory disorders; B96.5 - Pseudomonas (aeruginosa) (mallei) (pseudomallei) as the cause of diseases classified elsewhere Category: Medical (6) Aspergilloma: Comment: resolved on CT chest 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 - Aspergillosis, unspecified Category: Medical Plan Continue Balbina 28 days on, 28 days off continue Rifampin MWF holding Ethambutol continue Doxycycline daily ?d/c in 6 weeks continue Advair/Spiriva Gabapentin 200mg qHS ROBERT as needed continue budesonide oxygen with activity and sleep continue CPT continue Pulmonary rehab F/U 6-8 weeks Coding Level of Care Code Est Pt Level 4 (80490) Diagnoses Bronchiectasis without complication J47.9 Bronchiectasis type: uncomplicated Pulmonary nodules R91.8 Mucopurulent chronic bronchitis J41.1 COPD type: chronic bronchitis Chronic bronchitis type: mucopurulent Nontuberculous mycobacterial disease of lung A31.0 Pseudomonas respiratory infection J98.8; B96.5 Aspergilloma B44.9 Time Spent (min) 18
== END 2023-12-30 11:15 | disposition home or self-care (01) ==
PROVIDERS: PCP Internal Medicine; Visit Provider Hospitalist
DX: J47.9 Bronchiectasis, uncomplicated (principal); R91.8 Other nonspecific abnormal finding of lung field; J41.1 Mucopurulent chronic bronchitis; A31.0 Pulmonary mycobacterial infection; J98.8 Other specified respiratory disorders; B96.5 Pseudomonas (aeruginosa) (mallei) (pseudomallei) as the cause of diseases classified elsewhere; B44.9 Aspergillosis, unspecified
CPT/HCPCS: 99214

== ENCOUNTER → 2023-12-30 10:36 | Outpatient (BNVA) | payer MEDICARE, SELFPAY | PROVIDERS: PCP Internal Medicine; Visit Provider Hospitalist | DX: J47.9 Bronchiectasis, uncomplicated (principal); J41.1 Mucopurulent chronic bronchitis; J98.8 Other specified respiratory disorders; R91.8 Other nonspecific abnormal finding of lung field; A31.0 Pulmonary mycobacterial infection; B44.9 Aspergillosis, unspecified; B96.5 Pseudomonas (aeruginosa) (mallei) (pseudomallei) as the cause of diseases classified elsewhere | CPT/HCPCS: 99212 ==

== ENCOUNTER 2024-02-12 11:04 | Outpatient (AMB) | payer MEDICARE, SELFPAY ==
--- NOTE | 2024-02-12 11:17 | MHC.OFFVIS ---
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 She has had bronchoscopies in the past with positive stenotrophomonas. She also has a cardiac condition including AFib a flutter. She had a prolonged hospitalization the summer was very sick. She started to feel better. She completed a Holter monitor. She is still having issues with reflux. She is maintaining a diet and taking medications to minimize the acid. The patient did have a CT scan of the chest March 16, 2019 that we personally. The pulmonary nodules appear to be stable. She does have some evidence of airspace disease in the bases bring up the question of micro aspirations into the lungs. This appears to be a little bit worse on the left side in the right with compared to previous. Therefore, we talked about the importance of micro aspirations and minimizing the apparent we can consider promotility agents including Reglan, azithromycin and temporary done. However, domperidone and azithromycin do cause QT prolongation with the dangers with her sotalol. Right now Reglan is an option but will hold off at this time since she is doing well. We did review her CT scan of the chest demonstrating interval improvement her pulmonary nodules. She still has bronchiectatic changes and bronchitis looking airways, but, overall better. The right lower lobe has more dense airspace disease but that even looks improved when compared to her previous CAT scan from [facility]. She still waiting to get a portable oxygen concentrator. She has been working with [facility] to get that arranged. 07/23/2023 the patient is here for a pulmonary follow-up visit. The patient is nervous about her CT scan results. I was able to give her reassuring news. The nodular density that was in the left upper lobe resolved after the 2 months' worth of voriconazole. Therefore, we can go ahead and have her stop the voriconazole. She will go back on the inhaled tobramycin and also on the rifampin. The patient has been a little more congested so I believe this will be helpful. She still has evidence of active mycobacterial disease so therefore she needs to stay on the therapy. She has bronchiectasis in the inhaled tobramycin is been very effective for. The patient has been complaining of this burning sensation in the chest. Sometimes he can be pretty severe. For some reason response to prednisone although is not really her breathing. I did provide her with gabapentin that she can use at nighttime to help her with neuropathic pain. The patient also needs to follow-up with cardiology to make sure that she does not have active cardiac issue going on. She continues use oxygen with good effect. The patient also continues with the current respiratory therapy. Overall she is doing better. However, she does have significant comorbidities with extensive emphysema. Will continue monitoring him closely. 09/25/2023 the patient is here for a pulmonary follow-up visit. The patient recently was at the [facility] where she was admitted with pneumonia. She was having the burning sensation in the chest. Seems to happen when she started to get more congested sickly. Therefore likely a sign of airway burden and mucus plugging. She was given vancomycin and also cefepime in the hospital. Shunt she was discharged on Levaquin which she did take for 3 days although she needs to be very careful with QT. the patient does take sotalol. Did helping her burning sensation in the chest did improve on that therapy. Now she is at home she is off the prednisone. We did talk about a small dose of prednisone although she has osteoporosis and therefore risk for having further bone injury and fractures. Therefore I will give her some prednisone but not to take it right now unless she gets sick she can do short burst low dose. In addition to that the patient has been back on the inhaled tobramycin. This will help decrease some of the organisms from her lungs. Will go ahead and start her on a small dose of doxycycline in order to treat for Staph related chinstrap related infections. The patient has had significant probably microbial infection. And also from the Modic standpoint the patient unfortunately has not been able to use the macrolide therapy because of the sotalol. Although she is seen by new personnel technician and is felt that maybe she can come off the sotalol so therefore if that is the case we can start her on azithromycin. I will reach out to her new personnel technician to try a figure out how we can go about the change. She continues use the oxygen with good therapy. 11/06/2023 the patient is here for a pulmonary follow-up visit. Overall she is feeling better. Her burning chest sensation has improved. The patient is still having to use her oxygen more regularly. She is tolerating the doxycycline daily. She has also taking the rifampin. In addition to that she has been taking the inhaled tobramycin 28 days on 20 days off. The days that she is not using the inhaled tobramycin she started getting little bit more secretion although still clear or light in color. We again talked about the azithromycin. Currently she is still on sotalol. Her personnel technician did mention the possibility of her coming off sotalol. But at this point since she is doing well from the doxycycline and we already treating all the organisms with current medication regimen best just to stay on when she is on right now specially with a very complicated medical issues. The patient did have an incident here in the office where she tripped and her oxygen concentrator fell landing on the cannula receptor and breaking. Therefore she will reach out to [facility] and will try to get that fixed. We did review her PFTs. There just a little bit over a year. I do believe that she should start participating in pulmonary rehabilitation specially now with the heated humidity will be hard for her to be outside. The patient is willing to start this at this time although she is concerned about her stamina. 12/30/2023 the patient is here for a pulmonary follow-up visit. The patient is starting to feel little bit better today. She has also been participating in pulmonary rehabilitation which is been helpful for her. She still has significant chest congestion. She does respond well to the inhaled BALBINA although it does irritate her lungs and constant chest tightness. When she is on the inhaled BALBINA she typically has less congestion. Currently she is on doxycycline treating her empirically for stenotrophomonas. The patient also had been treated for Aspergillus and also achromobacter previously. She is doing better from that standpoint. She does need a CT scan of the chest to address the previous findings. Her last CT scan was back in 10/04/2023. She does continue to use her oxygen good effect. She does have a portable oxygen concentrator the seems to be more portable for her. The patient returns 6 weeks. At that point will decide if she is going to continue the doxycycline. Also to note her mycobacterial cultures have been negative the last few times that they were checked. This is reassuring. Consider stopping the rifampin as well. Probably stop 1 medication at a time in view of her significant comorbidities. 02/12/2024 the patient is here for a pulmonary follow-up visit. Overall the patient has been a little bit more stable on the current medication regimen. She does respond well to the doxycycline. She was supposed to stop but she is concerned about stopping it based on the fact that she has been feeling well and does not want to go backwards. She has also been on inhaled tobramycin she is tolerating that. And she continues on the rifampin. I do believe that she should continue the doxycycline for now specially since her respiratory exam she still congested and now she is off the BALBINA. However, we did talk that when she is back on the BALBINA she can try to decrease it down to 3 times a week. In the meantime she continues with the neb treatments 3 times a day and also continues chest PT as she has the percussion vest and she also has the flutter valve. The patient also has been using her oxygen with good effect. She continues use it continuously. The patient follow-up in 3-4 months. If she has any worsening issues she will call for an earlier assessment. 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 Pulmonary nodules COPD (chronic obstructive pulmonary disease) Bronchiectasis Surgical History Hx of colonoscopy History of bronchoscopy History of appendectomy Social History Household Members: Other Household Members Other:: alone Housing: Condominium Are you a primary health care sanitary technician to a significant other at home: No Do you presently have visiting nurse or other home services: No Unable to assess alcohol history related to: Unknown Alcohol intake: never Patient Tobacco Use Status: Former Tobacco user Tobacco use type: Cigarette Years Smoked: 35 Second Hand Smoke Exposure: No Advance Directives Date on File: 01/31/22 service: No Current occupational status: retired Review of Systems Const Denies fever(s), Denies malaise and Denies night sweats ENT Denies change in voice, Denies lip swelling, Denies mouth pain, Reports nasal congestion, Reports nasal discharge and Denies tongue swelling Card Denies chest pain and Reports dyspnea on exertion Resp Denies chest congestion, Reports cough, Denies hemoptysis, Reports dyspnea on exertion and Reports wheezing GI Denies abdominal pain Musc Denies no additional complaints Neuro Denies Neuro-related abnormal movements Psych Denies no additional complaints Sherwin/Lymph Denies easy bleeding and Denies lymphadenopathy Aller/Immun Denies lip swelling, Denies tongue swelling and Reports wheezing Physical Exam Vital Signs: Last Vital Signs Pulse 84 02/12/24 11:18 Pulse Ox 94 02/12/24 11:18 Oxygen Delivery Method Room Air 02/12/24 11:18 BMI result Body Mass Index 21.0 Last Vital Signs Temp 98.1 F 11/14/22 12:00 Pulse 87 11/14/22 12:00 Resp 19 11/14/22 12:00 BP 126/61 11/14/22 12:00 Pulse Ox 95 11/14/22 12:00 O2 Del Method Nasal Cannula 11/14/22 12:00 O2 Flow Rate 2 11/14/22 08:00 Oxygen Flow Rate 4 11/11/22 14:50 BMI result Body Mass Index 23.2 Const General: alert HEENT Head: Yes normocephalic Neck Neck: Yes normal visual inspection, Yes full ROM and Yes no lymphadenopathy Chest Chest palpation & inspection: normal inspection of the chest Resp Effort & Inspection: normal respiratory effort and prolonged expiratory phase Auscultation: no crackles, no rhonchi and diminished lung sounds Cardio Rate: regular rate Rhythm: regular rhythm Heart sounds: S1 normal heart sound present and S2 normal heart sound present GI Palpation (GI): Soft to palpation Auscultation: normal bowel sounds Skin General skin exam: no rashes or lesions noted Extrem General: Yes no clubbing, cyanosis or edema Assessment & Plan Assessment & Plan (1) Bronchiectasis: Code(s): J47.9 - Bronchiectasis, uncomplicated Category: Medical Qualifiers: Bronchiectasis type: uncomplicated Qualified Code(s): J47.9 - Bronchiectasis, uncomplicated (2) Pulmonary nodules: Comment: Code(s): R91.8 - Other nonspecific abnormal finding of lung field Category: Medical (3) COPD (chronic obstructive pulmonary disease): Code(s): J44.9 - Chronic obstructive pulmonary disease, unspecified Category: Medical Qualifiers: COPD type: chronic bronchitis Chronic bronchitis type: mucopurulent Qualified Code(s): J41.1 - Mucopurulent chronic bronchitis (4) Nontuberculous mycobacterial disease of lung: Code(s): A31.0 - Pulmonary mycobacterial infection Category: Medical (5) Pseudomonas respiratory infection: Code(s): J98.8 - Other specified respiratory disorders; B96.5 - Pseudomonas (aeruginosa) (mallei) (pseudomallei) as the cause of diseases classified elsewhere Category: Medical (6) Aspergilloma: Comment: resolved on CT chest 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 - Aspergillosis, unspecified Category: Medical Plan Continue Balbina 28 days on, 28 days off continue Rifampin MWF continue Doxycycline daily ->MWF continue Advair/Spiriva Gabapentin 200mg qHS ROBERT as needed continue budesonide oxygen with activity and sleep continue CPT continue Pulmonary rehab F/U 12 weeks Coding Level of Care Code Est Pt Level 4 (50603) Complex EM visit Add On G2211 Diagnoses Bronchiectasis without complication J47.9 Bronchiectasis type: uncomplicated Pulmonary nodules R91.8 Mucopurulent chronic bronchitis J41.1 COPD type: chronic bronchitis Chronic bronchitis type: mucopurulent Nontuberculous mycobacterial disease of lung A31.0 Pseudomonas respiratory infection J98.8; B96.5 Aspergilloma B44.9 Time Spent (min) 17
[2024-02-12 11:18] VITALS: PULSE 84; O2SAT 94; BMI 21.0
== END 2024-02-12 11:44 | disposition home or self-care (01) ==
PROVIDERS: PCP Internal Medicine; Visit Provider Hospitalist
DX: J47.9 Bronchiectasis, uncomplicated (principal); R91.8 Other nonspecific abnormal finding of lung field; J41.1 Mucopurulent chronic bronchitis; A31.0 Pulmonary mycobacterial infection; J98.8 Other specified respiratory disorders; B96.5 Pseudomonas (aeruginosa) (mallei) (pseudomallei) as the cause of diseases classified elsewhere; B44.9 Aspergillosis, unspecified
CPT/HCPCS: 99214; G2211

== ENCOUNTER → 2024-02-12 11:04 | Outpatient (BNVA) | payer MEDICARE, SELFPAY | PROVIDERS: PCP Internal Medicine; Visit Provider Hospitalist | DX: J47.9 Bronchiectasis, uncomplicated (principal); J41.1 Mucopurulent chronic bronchitis; J98.8 Other specified respiratory disorders; R91.8 Other nonspecific abnormal finding of lung field; A31.0 Pulmonary mycobacterial infection; B96.5 Pseudomonas (aeruginosa) (mallei) (pseudomallei) as the cause of diseases classified elsewhere; B44.9 Aspergillosis, unspecified | CPT/HCPCS: 99212 ==

== ENCOUNTER → 2024-04-14 13:45 | Outpatient (AMB) | payer MEDICARE, SELFPAY ==
[2024-04-14 14:18] VITALS: BP 132/62; PULSE 78; O2SAT 92; BMI 20.2
--- NOTE | 2024-04-14 14:18 | A.OFFVIS_ITS ---
Vital Signs 04/14/24 14:18 Height 5 ft 6 in Weight 125 lb BMI 20.2 BP 132/62 Blood Pressure Location Lt brachial Position Sitting Pulse 78 Pulse Source Pulse Oximeter Pulse Oximetry (%) 92 Oxygen Delivery Method Nasal Cannula Oxygen Flow Rate 2 Intake Visit Reasons: COPD exacerbation Tape Duplicator Required: No Adult Day Care Worker: Adult Day Care Worker offered & declined Accompanied by: Self / Same As Patient Allergies No Known Allergies Allergy (Verified 04/14/24 14:21) Medication List - Last Reconciled 04/14/24 by Chichi Jensen LPN acetaminophen 1,000 mg PO QID PRN albuterol sulfate 90 mcg/actuation 2 puffs PO Q6H PRN alendronate 70 mg PO SA antiarthritic combination no.2 (glucosamine-chondroitin) 1,200 mg PO BID apixaban (Eliquis) 5 mg PO BID budesonide 0.5 mg (2 mL) inhalation DAILY@1400 calcium carbonate (Calcium 600) 600 mg PO BID cholecalciferol (vitamin D3) 50 mcg PO DAILY coenzyme Q10 400 mg PO DAILY d-mannose 1,500 mg PO BID doxycycline monohydrate 100 mg PO DAILY 30 days evolocumab (Repatha Syringe) 140 mg subcut Q2W ezetimibe (Zetia) 10 mg PO DAILY blzzionmnmc-hcaawhidw-gqtnfnft 200-62.5-25 mcg (Trelegy Ellipta) 1 ea inhalation DAILY 30 days gabapentin 200 mg (2 x 100 mg) PO BEDTIME 30 days guaifenesin ER (Mucinex) 600 mg PO BID hydrochlorothiazide 25 mg PO DAILY ipratropium-albuterol 0.5 mg-3 mg(2.5 mg base)/3 mL 3 mL inhalation TID Lactobacillus rhamnosus GG (Culturelle) 1 cap PO DAILY lorazepam 0.5 mg PO Q6H PRN magnesium oxide 400 mg PO BEDTIME melatonin 5 mg PO BEDTIME meropenem 1 g IV Q8H 63 doses nebulizers As directed omega 2-lks-bpe-fish oil 350 mg-235 mg- 90 mg-597 mg ([place]-3) 1 cap PO DAILY omeprazole 40 mg PO BID 30 days ondansetron HCl 4 mg PO Q4H PRN Oxygen Home Use As directed polyethylene glycol 3350 (Miralax) 17 grams PO DAILY PRN potassium chloride ER 10 mEq PO DAILY rifampin 300 mg PO MOWEFR 90 days sodium chloride 7% 4 mL inhalation BID sotalol 80 mg PO BID tobramycin in 0.225 % NaCl 300 mg/5 mL (Avtar) 300 mg (5 mL) inhalation BID 28 days vit C,E,Zn,Yu--aft-zeax 250-2.5-0.5 mg 1 cap PO BID voriconazole 200 mg PO Q12H 30 days zolpidem (Ambien) 5 mg PO BEDTIME PRN HPI HPI COPD exacerbation: Details: Zainab is a pleasant 83-year-old female, former smoker, with underlying chronic respiratory failure on supplemental oxygen, COPD, bronchiectasis, aspergilloma, non tuberculosis mycobacterial disease, atrial fibrillation, pulmonary nodules and hypertension. She is under the care of Dr. Brown and presents today for an acute visit. She is currently maintained on Trelegy, tobramycin, doxycycline daily, rifampin, nebulized budesonide and DuoNeb p.r.n. she reports 2 week history of pleuritic chest discomfort which has been present over the last few years, however more moderate in intensity with associated nausea and productive. When symptoms 1st presented she did have a low-grade fever however has subsided. She notes this is how she presented previously she has had pneumonia. She notes that since her last visit with Dr. Brown she is 2 L of continuous oxygen and has been off tobramycin for 1 week, as well as decreased frequency of doxycycline. She tested for COVID which was negative. She denies any sick contacts. 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 Pulmonary nodules COPD (chronic obstructive pulmonary disease) Bronchiectasis Surgical History Hx of colonoscopy History of bronchoscopy History of appendectomy Social History Household Members: Other Household Members Other:: alone Housing: Condominium Are you a primary college and career counselor to a significant other at home: No Do you presently have visiting nurse or other home services: No Unable to assess alcohol history related to: Unknown Alcohol intake: never Patient Tobacco Use Status: Former Tobacco user Tobacco use type: Cigarette Years Smoked: 35 Second Hand Smoke Exposure: No Advance Directives Date on File: 01/31/22 service: No Current occupational status: retired Review of Systems Const Denies chills, Denies excessive sweating, Denies headache(s) and Denies night sweats Eyes Denies dry eyes, Denies irritation and Denies itchy eyes ENT Reports Normal hearing present, Denies headache(s), Denies nasal congestion, Denies nasal discharge, Denies post nasal drip and Denies sore throat Card Denies chest pain, Denies chest pain at rest, Denies chest pain with activity, Denies claudication, Denies leg edema, Denies orthopnea and Denies paroxysmal nocturnal dyspnea Resp Denies chest congestion, Denies excessive phlegm production, Denies pain on inspiration, Denies pain with cough, Denies stridor and Denies wheezing Musc Denies myalgias Neuro Reports Normal hearing present and Denies headache(s) Endo Denies excessive sweating Sherwin/Lymph Denies lymphadenopathy Aller/Immun Denies itchy eyes, Denies seasonal rhinorrhea and Denies wheezing Physical Exam Vital Signs: Last Vital Signs Pulse 78 04/14/24 14:18 BP 132/62 04/14/24 14:18 Pulse Ox 92 04/14/24 14:18 Oxygen Delivery Method Nasal Cannula 04/14/24 14:18 Oxygen Flow Rate 2 04/14/24 14:18 BMI result Body Mass Index 20.2 Const General: cooperative, comfortable, no acute distress, well developed and alert Nutritional Appearance: obese Orientation/consciousness: patient oriented x3 HEENT Head: Yes normal to inspection, Yes normocephalic and Yes atraumatic Ears: hearing grossly normal bilaterally and external ears normal Eyes General: appearance normal, both eyes and all related structures Eyelids: Yes eyelids normal Sclerae: sclerae normal EOM: EOMs intact bilaterally Neck Neck: Yes normal visual inspection and Yes no lymphadenopathy Lymphatic: no lymphadenopathy noted Chest Chest palpation & inspection: normal inspection of the chest Resp Other: Left lower lobe with inspiratory crackles Effort & Inspection: normal respiratory effort, able to speak in complete sentences, no audible wheezes, no cough, no stridor, not tachypneic, no tripod positioning and no use of accessory muscles Auscultation: clear to auscultation bilaterally Cardio Jugular venous distension: no JVD Rate: regular rate Rhythm: regular rhythm Skin Other: warm, dry General skin exam: no rashes or lesions noted Neuro General: patient oriented x3 Cranial nerves: Yes Normal hearing present Cognition (Neuro): normal cognition Gait exam (Neuro): Normal gait present Extrem General: Yes normal to inspection, Yes capillary refill normal, Yes no clubbing, cyanosis or edema and Yes no pedal edema Psych Appearance: grossly normal and well kempt Speech and movement: Normal speech and movement present and Clear speech present Affect: normal affect Attitude: cooperative Thought process: Normal thought process present Thought content: Normal thought content present Insight: Good insight present (Psych) Judgement: Good judgement present (Psych) Assessment & Plan Assessment & Plan (1) Bronchiectasis: Code(s): J47.9 - Bronchiectasis, uncomplicated Category: Medical Qualifiers: Bronchiectasis type: uncomplicated Qualified Code(s): J47.9 - Bronchiectasis, uncomplicated (2) Pulmonary nodules: Comment: Code(s): R91.8 - Other nonspecific abnormal finding of lung field Category: Medical (3) COPD (chronic obstructive pulmonary disease): Code(s): J44.9 - Chronic obstructive pulmonary disease, unspecified Category: Medical Qualifiers: COPD type: chronic bronchitis Chronic bronchitis type: mucopurulent Qualified Code(s): J41.1 - Mucopurulent chronic bronchitis (4) Nontuberculous mycobacterial disease of lung: Code(s): A31.0 - Pulmonary mycobacterial infection Category: Medical Plan Patient presented with atypical symptoms however notes that she presented like this prior and diagnosed with pneumonia. On exam patient with inspiratory crackles of left lower lobe, will send for chest x-ray. Will call patient with results and determine treatment plan at that time. All questions were answered and patient is in agreement of plan. Will follow-up with Dr. Brown for regularly scheduled appointment or sooner if needed. Orders: Orders XR chest 2V Today R05.9 - Cough, unspecified Coding Level of Care Code Est Pt Level 3 (91039) Diagnoses Bronchiectasis without complication J47.9 Bronchiectasis type: uncomplicated Pulmonary nodules R91.8 Mucopurulent chronic bronchitis J41.1 COPD type: chronic bronchitis Chronic bronchitis type: mucopurulent Nontuberculous mycobacterial disease of lung A31.0
== END ==
LOC: HO.HPSW 13:46
PROVIDERS: PCP Internal Medicine; Visit Provider Nurse Practitioner Family
DX: J47.9 Bronchiectasis, uncomplicated (principal); R91.8 Other nonspecific abnormal finding of lung field; J41.1 Mucopurulent chronic bronchitis; A31.0 Pulmonary mycobacterial infection
CPT/HCPCS: 99213

== ENCOUNTER → 2024-04-14 13:45 | Outpatient (BNVA) | payer MEDICARE, SELFPAY | PROVIDERS: PCP Internal Medicine; Visit Provider Nurse Practitioner Family | DX: J47.9 Bronchiectasis, uncomplicated (principal); J41.1 Mucopurulent chronic bronchitis; R91.8 Other nonspecific abnormal finding of lung field; A31.0 Pulmonary mycobacterial infection | CPT/HCPCS: 99212 ==

== ENCOUNTER 2024-04-15 09:49 | Outpatient (REF) | payer MEDICARE, SELFPAY ==
--- NOTE | ~2024-04-15 | XR_ITS ---
EXAMINATION: XR CHEST 2 VIEWS CLINICAL INFORMATION: Cough. COMPARISON: CT chest dated 07/17/2023; chest radiographs dated 06/24/2023. TECHNIQUE: Frontal and lateral views of the chest were obtained. FINDINGS: The heart, great vessels, pulmonary vasculature and mediastinum are normal. There is atherosclerotic calcification of the right knob. The lungs show no focal infiltrate, effusion or pneumothorax. There is pulmonary vascular congestion, without overt pulmonary edema. There is hyperinflation, with coarse central interstitial markings. There is bilateral bronchiectasis and bronchial wall thickening. There is no acute osseous abnormality. There is multi-level thoracic spondylosis. XR/XR chest 2V IMPRESSION: 1. No focal infiltrate is seen. 2. There is pulmonary vascular congestion, without marie pulmonary edema seen. 3. There are again findings of chronic emphysema and chronic bronchitis. Electronically signed by: Steven Plascencia MD 04/15/2024 12:54 PM EDT
== END 2024-04-15 09:50 | disposition home or self-care (01) ==
LOC: HO.XRAY 09:49
PROVIDERS: Absent Provider Nurse Practitioner Family; PCP Internal Medicine; Visit Provider Hospitalist
DX: R05.9 Cough, unspecified (principal)
CPT/HCPCS: 71046

== ENCOUNTER 2024-05-19 11:17 | Outpatient (AMB) | payer MEDICARE, SELFPAY ==
--- NOTE | 2024-05-19 11:21 | MHC.OFFVIS ---
Vital Signs 05/19/24 11:22 Weight 126 lb 12.253 oz BP 160/70 H Blood Pressure Location Rt brachial Position Sitting Pulse 95 Pulse Oximetry (%) 95 Oxygen Delivery Method Room Air Intake Visit Reasons: COPD Allergies No Known Allergies Allergy (Verified 05/19/24 11:28) Medication List - Last Reconciled 05/19/24 by Bijal Wynn LPN acetaminophen 1,000 mg PO QID PRN albuterol sulfate 90 mcg/actuation 2 puffs PO Q6H PRN alendronate 70 mg PO SA antiarthritic combination no.2 (glucosamine-chondroitin) 1,200 mg PO BID apixaban (Eliquis) 5 mg PO BID budesonide 0.5 mg (2 mL) inhalation DAILY@1400 calcium carbonate (Calcium 600) 600 mg PO BID cholecalciferol (vitamin D3) 50 mcg PO DAILY coenzyme Q10 400 mg PO DAILY d-mannose 1,500 mg PO BID doxycycline monohydrate 100 mg PO DAILY 30 days evolocumab (Repatha Syringe) 140 mg subcut Q2W ezetimibe (Zetia) 10 mg PO DAILY qzgjiirkdhg-sdxinlioc-csdcppvp 200-62.5-25 mcg (Trelegy Ellipta) 1 ea inhalation DAILY 30 days guaifenesin ER (Mucinex) 600 mg PO BID ipratropium-albuterol 0.5 mg-3 mg(2.5 mg base)/3 mL 3 mL inhalation TID Lactobacillus rhamnosus GG (Culturelle) 1 cap PO DAILY lorazepam 0.5 mg PO Q6H PRN magnesium oxide 400 mg PO BEDTIME melatonin 5 mg PO BEDTIME nebulizers As directed omega 4-esc-jgl-fish oil 350 mg-235 mg- 90 mg-597 mg (Burgaw-3) 1 cap PO DAILY omeprazole 40 mg PO BID 30 days Oxygen Home Use As directed polyethylene glycol 3350 (Miralax) 17 grams PO DAILY PRN potassium chloride ER 10 mEq PO DAILY rifampin 300 mg PO MOWEFR 90 days sodium chloride 7% 4 mL inhalation BID sotalol 80 mg PO BID tobramycin in 0.225 % NaCl 300 mg/5 mL (Balbina) 300 mg (5 mL) inhalation BID 28 days vit C,E,Zn,Ba-kznry9-ohk-zeax 250-2.5-0.5 mg 1 cap PO BID zolpidem (Ambien) 5 mg PO BEDTIME PRN HPI Comments Details: Patient is a 83-year-old lady with a known history of COPD in addition to tracheobronchomalacia and also some degree of bronchiectasis 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 She has had bronchoscopies in the past with positive stenotrophomonas. She also has a cardiac condition including AFib a flutter. She had a prolonged hospitalization the summer was very sick. She started to feel better. She completed a Holter monitor. She is still having issues with reflux. She is maintaining a diet and taking medications to minimize the acid. The patient did have a CT scan of the chest March 16, 2019 that we personally. The pulmonary nodules appear to be stable. She does have some evidence of airspace disease in the bases bring up the question of micro aspirations into the lungs. This appears to be a little bit worse on the left side in the right with compared to previous. Therefore, we talked about the importance of micro aspirations and minimizing the apparent we can consider promotility agents including Reglan, azithromycin and temporary done. However, domperidone and azithromycin do cause QT prolongation with the dangers with her sotalol. Right now Reglan is an option but will hold off at this time since she is doing well. We did review her CT scan of the chest demonstrating interval improvement her pulmonary nodules. She still has bronchiectatic changes and bronchitis looking airways, but, overall better. The right lower lobe has more dense airspace disease but that even looks improved when compared to her previous CAT scan from [facility]. She still waiting to get a portable oxygen concentrator. She has been working with [facility] to get that arranged. 07/23/2023 the patient is here for a pulmonary follow-up visit. The patient is nervous about her CT scan results. I was able to give her reassuring news. The nodular density that was in the left upper lobe resolved after the 2 months' worth of voriconazole. Therefore, we can go ahead and have her stop the voriconazole. She will go back on the inhaled tobramycin and also on the rifampin. The patient has been a little more congested so I believe this will be helpful. She still has evidence of active mycobacterial disease so therefore she needs to stay on the therapy. She has bronchiectasis in the inhaled tobramycin is been very effective for. The patient has been complaining of this burning sensation in the chest. Sometimes he can be pretty severe. For some reason response to prednisone although is not really her breathing. I did provide her with gabapentin that she can use at nighttime to help her with neuropathic pain. The patient also needs to follow-up with cardiology to make sure that she does not have active cardiac issue going on. She continues use oxygen with good effect. The patient also continues with the current respiratory therapy. Overall she is doing better. However, she does have significant comorbidities with extensive emphysema. Will continue monitoring him closely. 09/25/2023 the patient is here for a pulmonary follow-up visit. The patient recently was at the [facility] where she was admitted with pneumonia. She was having the burning sensation in the chest. Seems to happen when she started to get more congested sickly. Therefore likely a sign of airway burden and mucus plugging. She was given vancomycin and also cefepime in the hospital. Shunt she was discharged on Levaquin which she did take for 3 days although she needs to be very careful with QT. the patient does take sotalol. Did helping her burning sensation in the chest did improve on that therapy. Now she is at home she is off the prednisone. We did talk about a small dose of prednisone although she has osteoporosis and therefore risk for having further bone injury and fractures. Therefore I will give her some prednisone but not to take it right now unless she gets sick she can do short burst low dose. In addition to that the patient has been back on the inhaled tobramycin. This will help decrease some of the organisms from her lungs. Will go ahead and start her on a small dose of doxycycline in order to treat for Staph related chinstrap related infections. The patient has had significant probably microbial infection. And also from the [place]ic standpoint the patient unfortunately has not been able to use the macrolide therapy because of the sotalol. 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 I will reach out to her new elementary summer school teacher to try a figure out how we can go about the change. She continues use the oxygen with good therapy. 11/06/2023 the patient is here for a pulmonary follow-up visit. Overall she is feeling better. Her burning chest sensation has improved. The patient is still having to use her oxygen more regularly. She is tolerating the doxycycline daily. She has also taking the rifampin. In addition to that she has been taking the inhaled tobramycin 28 days on 20 days off. The days that she is not using the inhaled tobramycin she started getting little bit more secretion although still clear or light in color. We again talked about the azithromycin. Currently she is still on sotalol. Her elementary summer school teacher did mention the possibility of her coming off sotalol. But at this point since she is doing well from the doxycycline and we already treating all the organisms with current medication regimen best just to stay on when she is on right now specially with a very complicated medical issues. The patient did have an incident here in the office where she tripped and her oxygen concentrator fell landing on the cannula receptor and breaking. Therefore she will reach out to [employer] and will try to get that fixed. We did review her PFTs. There just a little bit over a year. I do believe that she should start participating in pulmonary rehabilitation specially now with the heated humidity will be hard for her to be outside. The patient is willing to start this at this time although she is concerned about her stamina. 12/30/2023 the patient is here for a pulmonary follow-up visit. The patient is starting to feel little bit better today. She has also been participating in pulmonary rehabilitation which is been helpful for her. She still has significant chest congestion. She does respond well to the inhaled BALBINA although it does irritate her lungs and constant chest tightness. When she is on the inhaled BALBINA she typically has less congestion. Currently she is on doxycycline treating her empirically for stenotrophomonas. The patient also had been treated for Aspergillus and also achromobacter previously. She is doing better from that standpoint. She does need a CT scan of the chest to address the previous findings. Her last CT scan was back in 10/04/2023. She does continue to use her oxygen good effect. She does have a portable oxygen concentrator the seems to be more portable for her. The patient returns 6 weeks. At that point will decide if she is going to continue the doxycycline. Also to note her mycobacterial cultures have been negative the last few times that they were checked. This is reassuring. Consider stopping the rifampin as well. Probably stop 1 medication at a time in view of her significant comorbidities. 02/12/2024 the patient is here for a pulmonary follow-up visit. Overall the patient has been a little bit more stable on the current medication regimen. She does respond well to the doxycycline. She was supposed to stop but she is concerned about stopping it based on the fact that she has been feeling well and does not want to go backwards. She has also been on inhaled tobramycin she is tolerating that. And she continues on the rifampin. I do believe that she should continue the doxycycline for now specially since her respiratory exam she still congested and now she is off the BALBINA. However, we did talk that when she is back on the BALBINA she can try to decrease it down to 3 times a week. In the meantime she continues with the neb treatments 3 times a day and also continues chest PT as she has the percussion vest and she also has the flutter valve. The patient also has been using her oxygen with good effect. She continues use it continuously. The patient follow-up in 3-4 months. If she has any worsening issues she will call for an earlier assessment. 05/19/2024 the patient is here for a pulmonary follow-up visit. The patient overall has been feeling better now. She was taken required a course of Vantin. After she did have worsening symptoms and she call the office and we just had her hold off for the weekend to see if she will recover by itself. She did feel better and did not need any additional antibiotics which is reassuring. The patient had recently started the inhaled tobramycin. She is tolerating it although it does cause some irritation to the throat and increased coughing and she also has a little more bronchospasms with. She knows to use her albuterol little bit more often to try to minimize on the adverse effects of the BALBINA. The patient does have issues with dysmotility. She does respond well to Reglan. I do think the Reglan will be a good option for her she can use as needed as long as she can monitor closely for any tremors where she would have to quickly stopped the medicine because it can result in irreversible tremors. She continues with other medications as prescribed in her respiratory therapy. She continues use the oxygen with good effect. She is going to the [facility] and she is exercising. She is using her oxygen 3 L pulse with exercising sometimes she is not able to go as fast as she used to before. She can always consider bringing larger tank in running continuous although it is hard for her to carry. Therefore she will continue with what she is doing right now will follow-up in 2-3 months. If she has any issues prior to that she will call for an earlier assessment. 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 Pulmonary nodules COPD (chronic obstructive pulmonary disease) Bronchiectasis Surgical History Hx of colonoscopy History of bronchoscopy History of appendectomy Social History Household Members: Other Household Members Other:: alone Housing: Condominium Are you a primary long term care administrator to a significant other at home: No Do you presently have visiting nurse or other home services: No Unable to assess alcohol history related to: Unknown Alcohol intake: never Patient Tobacco Use Status: Former Tobacco user Tobacco use type: Cigarette Years Smoked: 35 Second Hand Smoke Exposure: No Advance Directives Date on File: 01/31/22 service: No Current occupational status: retired Review of Systems Const Denies fever(s), Denies malaise, Denies night sweats, Reports poor appetite and Reports weight loss ENT Denies change in voice, Denies lip swelling, Denies mouth pain, Reports nasal congestion, Reports nasal discharge and Denies tongue swelling Card Denies chest pain and Reports dyspnea on exertion Resp Denies chest congestion, Reports cough, Denies hemoptysis, Reports dyspnea on exertion and Reports wheezing GI Denies abdominal pain and Reports nausea Musc Denies no additional complaints Neuro Denies Neuro-related abnormal movements Psych Denies no additional complaints Sherwin/Lymph Denies easy bleeding and Denies lymphadenopathy Aller/Immun Denies lip swelling, Denies tongue swelling and Reports wheezing Physical Exam Vital Signs: Last Vital Signs Pulse 95 05/19/24 11:22 BP 160/70 H 05/19/24 11:22 Pulse Ox 95 05/19/24 11:22 Oxygen Delivery Method Room Air 05/19/24 11:22 Last Vital Signs Temp 98.1 F 11/14/22 12:00 Pulse 87 11/14/22 12:00 Resp 19 11/14/22 12:00 BP 126/61 11/14/22 12:00 Pulse Ox 95 11/14/22 12:00 O2 Del Method Nasal Cannula 11/14/22 12:00 O2 Flow Rate 2 11/14/22 08:00 Oxygen Flow Rate 4 11/11/22 14:50 BMI result Body Mass Index 23.2 Const General: alert HEENT Head: Yes normocephalic Neck Neck: Yes normal visual inspection, Yes full ROM and Yes no lymphadenopathy Chest Chest palpation & inspection: normal inspection of the chest Resp Effort & Inspection: normal respiratory effort and prolonged expiratory phase Auscultation: no crackles, no rhonchi, wheezes and diminished lung sounds Cardio Rate: regular rate Rhythm: regular rhythm Heart sounds: S1 normal heart sound present and S2 normal heart sound present GI Palpation (GI): Soft to palpation Auscultation: normal bowel sounds Skin General skin exam: no rashes or lesions noted Extrem General: Yes no clubbing, cyanosis or edema Assessment & Plan Assessment & Plan (1) Bronchiectasis: Code(s): J47.9 - Bronchiectasis, uncomplicated Category: Medical Qualifiers: Bronchiectasis type: uncomplicated Qualified Code(s): J47.9 - Bronchiectasis, uncomplicated (2) Pulmonary nodules: Comment: Code(s): R91.8 - Other nonspecific abnormal finding of lung field Category: Medical (3) COPD (chronic obstructive pulmonary disease): Code(s): J44.9 - Chronic obstructive pulmonary disease, unspecified Category: Medical Qualifiers: COPD type: chronic bronchitis Chronic bronchitis type: mucopurulent Qualified Code(s): J41.1 - Mucopurulent chronic bronchitis (4) Nontuberculous mycobacterial disease of lung: Code(s): A31.0 - Pulmonary mycobacterial infection Category: Medical (5) Pseudomonas respiratory infection: Code(s): J98.8 - Other specified respiratory disorders; B96.5 - Pseudomonas (aeruginosa) (mallei) (pseudomallei) as the cause of diseases classified elsewhere Category: Medical (6) Aspergilloma: Comment: resolved on CT chest 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 - Aspergillosis, unspecified Category: Medical Plan Continue Balbina 28 days on, 28 days off continue Rifampin MWF continue Doxycycline MWF continue Advair/Spiriva Gabapentin 200mg qHS ROBERT as needed continue budesonide oxygen with activity and sleep strat reglan BID as needed continue CPT continue Pulmonary rehab F/U 12 weeks Medications: New metoclopramide HCl (Reglan) 5 mg PO BID PRN 60 tabs 5RF nausea and vomiting 30 days Coding Level of Care Code Est Pt Level 4 (93650) Complex EM visit Add On G2211 Diagnoses Bronchiectasis without complication J47.9 Bronchiectasis type: uncomplicated Pulmonary nodules R91.8 Mucopurulent chronic bronchitis J41.1 COPD type: chronic bronchitis Chronic bronchitis type: mucopurulent Nontuberculous mycobacterial disease of lung A31.0 Pseudomonas respiratory infection J98.8; B96.5 Aspergilloma B44.9 Time Spent (min) 17
[2024-05-19 11:22] VITALS: BP 160/70; PULSE 95; O2SAT 95
== END 2024-05-19 11:55 | disposition home or self-care (01) ==
PROVIDERS: PCP Internal Medicine; Visit Provider Hospitalist
DX: J47.9 Bronchiectasis, uncomplicated (principal); R91.8 Other nonspecific abnormal finding of lung field; J41.1 Mucopurulent chronic bronchitis; A31.0 Pulmonary mycobacterial infection; J98.8 Other specified respiratory disorders; B96.5 Pseudomonas (aeruginosa) (mallei) (pseudomallei) as the cause of diseases classified elsewhere; B44.9 Aspergillosis, unspecified
CPT/HCPCS: 99214; G2211

== ENCOUNTER → 2024-05-19 11:17 | Outpatient (BNVA) | payer MEDICARE, SELFPAY | PROVIDERS: PCP Internal Medicine; Visit Provider Hospitalist | DX: J47.9 Bronchiectasis, uncomplicated (principal); J41.1 Mucopurulent chronic bronchitis; J98.8 Other specified respiratory disorders; R91.8 Other nonspecific abnormal finding of lung field; A31.0 Pulmonary mycobacterial infection; B96.5 Pseudomonas (aeruginosa) (mallei) (pseudomallei) as the cause of diseases classified elsewhere; B44.9 Aspergillosis, unspecified | CPT/HCPCS: 99212 ==

== ENCOUNTER 2024-08-24 11:00 | Outpatient (AMB) | payer MEDICARE, SELFPAY ==
--- NOTE | 2024-08-24 11:07 | A.OFFVIS_ITS ---
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 She has had bronchoscopies in the past with positive stenotrophomonas. She also has a cardiac condition including AFib a flutter. She had a prolonged hospitalization the summer was very sick. She started to feel better. She completed a Holter monitor. She is still having issues with reflux. She is maintaining a diet and taking medications to minimize the acid. The patient did have a CT scan of the chest March 16, 2019 that we personally. The pulmonary nodules appear to be stable. She does have some evidence of airspace disease in the bases bring up the question of micro aspirations into the lungs. This appears to be a little bit worse on the left side in the right with compared to previous. Therefore, we talked about the importance of micro aspirations and minimizing the apparent we can consider promotility agents including Reglan, azithromycin and temporary done. However, domperidone and azithromycin do cause QT prolongation with the dangers with her sotalol. Right now Reglan is an option but will hold off at this time since she is doing well. We did review her CT scan of the chest demonstrating interval improvement her pulmonary nodules. She still has bronchiectatic changes and bronchitis looking airways, but, overall better. The right lower lobe has more dense airspace disease but that even looks improved when compared to her previous CAT scan from [facility]. She still waiting to get a portable oxygen concentrator. She has been working with [facility] to get that arranged. 07/23/2023 the patient is here for a pulmonary follow-up visit. The tracie patel is nervous about her CT scan results. I was able to give her reassuring news. The nodular density that was in the left upper lobe resolved after the 2 months' worth of voriconazole. Therefore, we can go ahead and have her stop the voriconazole. She will go back on the inhaled tobramycin and also on the rifampin. The patient has been a little more congested so I believe this will be helpful. She still has evidence of active mycobacterial disease so therefore she needs to stay on the therapy. She has bronchiectasis in the inhaled tobramycin is been very effective for. The patient has been complaining of this burning sensation in the chest. Sometimes he can be pretty severe. For some reason response to prednisone although is not really her breathing. I did provide her with gabapentin that she can use at nighttime to help her with neuropathic pain. The patient also needs to follow-up with cardiology to make sure that she does not have active cardiac issue going on. She continues use oxygen with good effect. The patient also continues with the current respiratory therapy. Overall she is doing better. However, she does have significant comorbidities with extensive emphysema. Will continue monitoring him closely. 09/25/2023 the patient is here for a pulmonary follow-up visit. The patient recently was at the [facility] where she was admitted with pneumonia. She was having the burning sensation in the chest. Seems to happen when she started to get more congested sickly. Therefore likely a sign of airway burden and mucus plugging. She was given vancomycin and also cefepime in the hospital. Shunt she was discharged on Levaquin which she did take for 3 days although she needs to be very careful with QT. the patient does take sotalo l. Did helping her burning sensation in the chest did improve on that therapy. Now she is at home she is off the prednisone. We did talk about a small dose of prednisone although she has osteoporosis and therefore risk for having further bone injury and fractures. Therefore I will give her some prednisone but not to take it right now unless she gets sick she can do short burst low dose. In ad dition to that the patient has been back on the inhaled tobramycin. This will help decrease some of the organisms from her lungs. Will go ahead and start her on a small dose of doxycycline in order to treat for Staph related chinstrap related infections. The patient has had significant probably microbial infection. And also from the Modic standpoint the patient unfortunately has not been able to use the macrolide therapy because of the sotalol. Although she is seen by new public address system operator and is felt that maybe she can come off the sotalol so therefore if that is the case we can start her on azithromycin. I will reach out to her new public address system operator to try a figure out how we can go about the change. She continues use the oxygen with good therapy. 11/06/2023 the patient is here for a pulmonary follow-up visit. Overall she is feeling better. Her burning chest sensation has improved. The patient is still having to use her oxygen more regularly. She is tolerating the doxycycline daily. She has also taking the rifampin. In addition to that she has been taking the inhaled tobramycin 28 days on 20 days off. The days that she is not using the inhaled tobramycin she started getting little bit more secretion although still clear or light in color. We again talked about the azithromycin. Currently she is still on sotalol. Her public address system operator did mention the possibility of her coming off sotalol. But at this point since she is doing well from the doxycycline and we already treating all the organisms with current medication regimen best just to stay on when she is on right now specially with a very complicated medical issues. The patient did have an incident here in the office where she tripped and her oxygen concentrator fell landing on the cannula receptor and breaking. Therefore she will reach out to [employer] and will try to get that fixed. We did review her PFTs. There just a little bit over a year. I do believe that she should start participating in pulmonary rehabilitation specially now with the heated humidity will be hard for her to be outside. The patient is willing to start this at this time although she is concerned about her stamina. 12/30/2023 the patient is here for a pulmonary follow-up visit. The patient is starting to feel little bit better today. She has also been participating in pulmonary rehabilitation which is been helpful for her. She still has significant chest congestion. She does respond well to the inhaled BALBINA although it does irritate her lungs and constant chest tightness. When she is on the inhaled BALBINA she typically has less congestion. Currently she is on doxycycline treating her empirically for stenotrophomonas. The patient also had been treated for Aspergillus and also achromobacter previously. She is doing better from that standpoint. She does need a CT scan of the chest to address the previous findings. Her last CT scan was back in 10/04/2023. She does continue to use her oxygen good effect. She does have a portable oxygen concentrator the seems to be more portable for her. The patient returns 6 weeks. At that point will decide if she is going to continue the doxycycline. Also to note her mycobacterial cultures have been negative the last few times that they were checked. This is reassuring. Consider stopping the rifampin as well. Probably stop 1 medication at a time in view of her significant comorbidities. 02/12/2024 the patient is here for a pulmonary follow-up visit. Overall the patient has been a little bit more stable on the current medication regimen. She does respond well to the doxycycline. She was supposed to stop but she is concerned about stopping it based on the fact that she has been feeling well and does not want to go backwards. She has also been on inhaled tobramycin she is tolerating that. And she continues on the rifampin. I do believe that she should continue the doxycycline for now specially since her respiratory exam she still congested and now she is off the BALBINA. However, we did talk that when she is back on the BALBINA she can try to decrease it down to 3 times a week. In the meantime she continues with the neb treatments 3 times a day and also continues chest PT as she has the percussion vest and she also has the flutter valve. The patient also has been using her oxygen with good effect. She continues use it continuously. The patient follow-up in 3-4 months. If she has any worsening issues she will call for an earlier assessment. 05/19/2024 the patient is here for a pulmonary follow-up visit. The patient overall has been feeling better now. She was taken required a course of Vantin. After she did have worsening symptoms and she call the office and we just had her hold off for the weekend to see if she will recover by itself. She did feel better and did not need any additional antibiotics which is reassuring. The patient had recently started the inhaled tobramycin. She is tolerating it although it does cause some irritation to the throat and increased coughing and she also has a little more bronchospasms with. She knows to use her albuterol little bit more often to try to minimize on the adverse effects of the BALBINA. The patient does have issues with dysmotility. She does respond well to Reglan. I do think the Reglan will be a good option for her she can use as needed as long as she can monitor closely for any tremors where she would have to quickly stopped the medicine because it can result in irreversible tremors. She continues with other medications as prescribed in her respiratory therapy. She continues use the oxygen with good effect. She is going to the [facility] and she is exercising. She is using her oxygen 3 L pulse with exercising sometimes she is not able to go as fast as she used to before. She can always consider bringing larger tank in running continuous although it is hard for her to carry. Therefore she will continue with what she is doing right now will follow-up in 2-3 months. If she has any issues prior to that she will call for an earlier assessment. 08/24/2024 the patient is here for pulmonary follow-up visit. Overall she has been doing well. The doxycycline 3 times a week up ineffective. She also continues with BALBINA 28 days on 20 days off in the rifampin as well. This therapies have been able to keep her secretions under control and respiratory status stable. She still also during the percussion vest and the Acapella valve for CPT. The patient did go to the beach over the winter and she had a great time she has has another trip planned for the summer. I did tell her to call [facility] to see about getting a concentrator delivered. And she also needs to take all her supplies with her. For now we are not going to make any changes with her medications but in the fall will talk about potentially deescalating some of her medications including rifampin. If she has any issues prior to that she will call for an earlier assessment. 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 Pulmonary nodules COPD (chronic obstructive pulmonary disease) Bronchiectasis Surgical History Hx of colonoscopy History of bronchoscopy History of appendectomy Social History Household Members: Other Household Members Other:: alone Housing: Condominium Are you a primary child care center assistant director to a significant other at home: No Do you presently have visiting nurse or other home services: No Unable to assess alcohol history related to: Unknown Alcohol intake: never Patient Tobacco Use Status: Former Tobacco user Tobacco use type: Cigarette Years Smoked: 35 Second Hand Smoke Exposure: No Advance Directives Date on File: 01/31/22 service: No Current occupational status: retired Review of Systems Const Denies fever(s), Denies malaise, Denies night sweats, Reports poor appetite and Reports weight loss ENT Denies change in voice, Denies lip swelling, Denies mouth pain, Reports nasal congestion, Reports nasal discharge and Denies tongue swelling Card Denies chest pain and Reports dyspnea on exertion Resp Denies chest congestion, Reports cough, Denies hemoptysis, Reports dyspnea on exertion and Reports wheezing GI Denies abdominal pain and Reports nausea Musc Denies no additional complaints Neuro Denies Neuro-related abnormal movements Psych Denies no additional complaints Sherwin/Lymph Denies easy bleeding and Denies lymphadenopathy Aller/Immun Denies lip swelling, Denies tongue swelling and Reports wheezing Physical Exam Vital Signs: Last Vital Signs Pulse 81 08/24/24 11:09 BP 132/68 08/24/24 11:09 Pulse Ox 95 08/24/24 11:09 Oxygen Delivery Method Nasal Cannula 08/24/24 11:09 Oxygen Flow Rate 2 08/24/24 11:09 BMI result Body Mass Index 20.3 Last Vital Signs Temp 98.1 F 11/14/22 12:00 Pulse 87 11/14/22 12:00 Resp 19 11/14/22 12:00 BP 126/61 11/14/22 12:00 Pulse Ox 95 11/14/22 12:00 O2 Del Method Nasal Cannula 11/14/22 12:00 O2 Flow Rate 2 11/14/22 08:00 Oxygen Flow Rate 4 11/11/22 14:50 BMI result Body Mass Index 23.2 Const General: alert HEENT Head: Yes normocephalic Neck Neck: Yes normal visual inspection, Yes full ROM and Yes no lymphadenopathy Chest Chest palpation & inspection: normal inspection of the chest Resp Effort & Inspection: normal respiratory effort and prolonged expiratory phase Auscultation: no crackles, no rhonchi and diminished lung sounds Cardio Rate: regular rate Rhythm: regular rhythm Heart sounds: S1 normal heart sound present and S2 normal heart sound present GI Palpation (GI): Soft to palpation Auscultation: normal bowel sounds Skin General skin exam: no rashes or lesions noted Extrem General: Yes no clubbing, cyanosis or edema Assessment & Plan Assessment & Plan (1) Bronchiectasis: Code(s): J47.9 - Bronchiectasis, uncomplicated Category: Medical Qualifiers: Bronchiectasis type: uncomplicated Qualified Code(s): J47.9 - Bronchiectasis, uncomplicated (2) Pulmonary nodules: Comment: Code(s): R91.8 - Other nonspecific abnormal finding of lung field Category: Medical (3) COPD (chronic obstructive pulmonary disease): Code(s): J44.9 - Chronic obstructive pulmonary disease, unspecified Category: Medical Qualifiers: COPD type: chronic bronchitis Chronic bronchitis type: mucopurulent Qualified Code(s): J41.1 - Mucopurulent chronic bronchitis (4) Nontuberculous mycobacterial disease of lung: Code(s): A31.0 - Pulmonary mycobacterial infection Category: Medical (5) Pseudomonas respiratory infection: Code(s): J98.8 - Other specified respiratory disorders; B96.5 - Pseudomonas (aeruginosa) (mallei) (pseudomallei) as the cause of diseases classified elsewhere Category: Medical (6) Aspergilloma: Comment: resolved on CT chest 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 - Aspergillosis, unspecified Category: Medical Plan Continue Balbina 28 days on, 28 days off continue Rifampin MWF, consider stopping next in the Fall continue Doxycycline MWF continue Advair/Spiriva Gabapentin 200mg qHS ROBERT as needed continue budesonide oxygen with activity and sleep reglan BID as needed for nausea continue CPT continue Pulmonary exercise F/U 3-4 months Coding Level of Care Code Est Pt Level 4 (65933) Complex EM visit Add On G2211 Diagnoses Bronchiectasis without complication J47.9 Bronchiectasis type: uncomplicated Pulmonary nodules R91.8 Mucopurulent chronic bronchitis J41.1 COPD type: chronic bronchitis Chronic bronchitis type: mucopurulent Nontuberculous mycobacterial disease of lung A31.0 Pseudomonas respiratory infection J98.8; B96.5 Aspergilloma B44.9 Time Spent (min) 17
[2024-08-24 11:09] VITALS: BP 132/68; PULSE 81; O2SAT 95; BMI 20.3
--- OUTSIDE RECORDS SUMMARY | 2024-08-24 13:33 | XMS_ITS | Encounter Summary ---
Author Organization [facility] Address [address] [place] [address] Care Team Providers Care Log Loader Helper Name Role Phone Daniel Yoon MD Primary Care Provider [phone] Reason for Visit * Imaging (Routine) - Closed Specialty Diagnoses / Procedures Referred By Contac t Referred To Contact Diagnoses Bilateral carotid bruits Procedures Vascular US duplex carotid bilateral Luis Alberto Marte NP [address] [place] [address] Phone: tel: fax: [facility] Referral ID Status Reason Start Date Expiration Date Visits Re quested Visits Authorized [id number] Closed 08/13/2024 08/13/2025 1 1 Encounter Details Date Type Department Care Team (Latest Contact Info) Description 08/19/2024 11:15 AM EST Ancillary Procedure [facility] - [facility] [address] [facility] Enrique [address] [place] [address] [phone] Bilateral carotid bruits Social History Tobacco Use Types Packs/Day Years Used Date Smoking Tobacco: Former Cigarettes Smokeless Tobacco: Never Alcohol Use Standard Drinks/Week Comments Yes 0 (1 standard drink = 0.6 oz pur e alcohol) rarely Comments Unknown Sex and Gender Information Value Date Recorded Sex Assigned at Female 12/23/2021 7:21 PM EDT Legal Sex Female 7:10 AM EST Gender Identity Female 12/23/2021 7:21 PM EDT Sexual Orientation Not on file documented as of this encounter Progress Notes * Luis Alberto Marte NP - 08/19/2024 11:15 AM EST Can we let her know, no concerning findings. documented in this encounter Plan of Treatment Upcoming Encounters Date Type Department Care Team (Late st Contact Info) Description 08/31/2024 10:00 AM EDT Ancillary Procedure [facility] Cardiology [facility] - [facility] [address] [facility] [address] [place] [address] 09/24/2024 11:00 AM EDT Office Visit Adult Medicine [facility] [address] [place] [address] Daniel Yoon MD [address] [place] [address] 11/30/2024 2:40 PM EDT Office Visit [facility] - [facility] [address] [facility] [address] [place] [address] Luis Alberto Marte NP [address] [place] [address] documented as of this encounter Procedures Procedure Name Priority Date/Time Associated Diagnosis Comments VAS US DUPLEX CAROTID BILATERAL Routine 08/19/2024 11:21 AM EST Bilateral carotid bruits documented in this encounter Results * Vascular US duplex carotid bilateral (08/19/2024 11:21 AM EST) Left CCA dist nevarez 14 cm/s CV VAS LAB Left CCA dist sys 92 cm/s CV VAS LAB LEFT COMMON CAROTID ARTERY MID D 15 cm/s CV VAS LAB LEFT COMMON CAROTID ARTERY MID S 80 cm/s CV VAS LAB Left CCA prox nevarez 19 cm/s CV VAS LAB Left CCA prox sys 81 cm/s CV VAS LAB LEFT EXTERNAL CAROTID ARTERY D 16 cm/s CV VAS LAB Left ECA sys 109 cm/s CV VAS LAB Left ICA/CCA sys 1.20 no units CV VAS LAB Left ICA dist nevarez 27 cm/s CV VAS LAB Left ICA dist sys 101 cm/s CV VAS LAB Left ICA mid nevarez 28 cm/s CV VAS LAB Left ICA mid sys 97 cm/s CV VAS LAB Left ICA prox nevarez 22 cm/s CV VAS LAB Left ICA prox sys 113 cm/s CV VAS LAB Left vertebral sys 48 cm/s CV VAS LAB Right CCA dist nevarez 15 cm/s CV VAS LAB Right cca dist sys 71 cm/s CV VAS LAB RIGHT COMMON CAROTID ARTERY MID D 19 cm/s CV VAS LAB RIGHT COMMON CAROTID ARTERY MID S 88 cm/s CV VAS LAB Right CCA prox nevarez 17 cm/s CV VAS LAB Right CCA prox sys 87 cm/s CV VAS LAB RIGHT EXTERNAL CAROTID ARTERY D 18 cm/s CV VAS LAB Right eca sys 251 cm/s CV VAS LAB Right ICA/CCA sys 1.90 no units CV VAS LAB Right ICA dist nevarez 19 cm/s CV VAS LAB Right ICA dist sys 100 cm/s CV VAS LAB Right ICA mid nevarez 27 cm/s CV VAS LAB Right ICA mid sys 136 cm/s CV VAS LAB Right ICA prox nevarez 17 cm/s CV VAS LAB Right ICA prox sys 72 cm/s CV VAS LAB Right vertebral sys 0 cm/s CV VAS LAB Left Prox Subclavian PSV 205 cm/s CV VAS LAB Right Prox Subclavian PSV 136 cm/s CV VAS LAB Right arm BP 141 mmHg CV VAS LAB Left arm BP 131 mmHg CV VAS LAB Anatomical Region Laterality Modality Vascular, Abdomen Ultrasound Narrative 08/19/2024 5:20 PM EST ?Right proximal ICA: There is minimal heterogeneous plaque. ?Left proximal ICA: There is minimal heterogeneous plaque. RIGHT. 1. There is mild atherosclerotic plaque in the right carotid system as noted above. 2. There is a < 50% stenosis in the right internal carotid artery based on Doppler velocity. 3. The subclavian artery has normal Doppler flow velocity. 4. The right vertebral artery is occluded. LEFT. 1. There is mild atherosclerotic plaque in the left carotid system as noted above. 2. There is a < 50% stenosis in the left internal carotid artery based on Doppler velocity. 3. The subclavian artery has increased Doppler velocity which may suggest hemodynamically significant stenosis although there is no subclavian steal phenomena. ??Please correlate clinically. 4. The vertebral artery has normal Doppler flow patterns with antegrade ?? flow. Interpretation was done according to the [place] Symptomatic Carotid Endarterectomy Trial (NASCET) criteria ??and the Consensus Panel Grayscale and Doppler Ultrasound criteria for diagnosis of internal carotid artery stenosis. ??Please note that there are no clear criteria validated for the common carotid artery stenosis. Right Carotid The CCA has heterogeneous plaque. The proximal ICA visualization is limited by acoustic shadowing. The proximal ICA has heterogeneous plaque. The ECA has no significant plaque. There is no color filling visualized in the verterbral artery. The subclavian artery was not well visualized. Left Carotid The CCA has no significant plaque. The proximal ICA has heterogeneous plaque. The ECA has no significant plaque. Vertebral flow is antegrade. Server Software Engineer Details A gtz scale, color and doppler analysis ultrasound was performed. During the study longitudinal and transverse views were obtained. Pulsed wave doppler was performed. us Luis Alberto Marte NP CV VASCULAR PROCEDURES Final Res ult documented in this encounter Visit Diagnoses Diagnosis Bilateral carotid bruits documented in this encounter Care Teams Log Loader Helper Relationship Specialty Start Date End Date Daniel Yoon MD [address] [place] [id number] PCP - General Internal Medicine 04/30/24 documented as of this encounter
--- OUTSIDE RECORDS SUMMARY | 2024-08-24 13:33 | XMS_ITS | Clinical Summary ---
Author Organization Patient Business Ser [facility] Address [address] [place] [address] Care Team Providers Care Metalsmith Name Role Phone Daniel Yoon MD Primary Care Provider [phone] Allergies No known active allergies Medications glucosamine/chondr o kennedy A/C/Mn (GLUCOSAMINE-CHOND ROIT-VIT C-MN ORAL) Take 1 Cap by mouth 2 times daily. Active guaifenesin (MUCINEX ORAL) if needed. Acti ve magnesium oxide 400 mg magnesium capsule Take 1 Cap by mouth daily. Active medical supply, miscellaneous (MISCELLANEOUS MEDICAL SUPPLY MISC) ACAPELLA 1 Device by Does not apply route 4 times daily for 30 days. 07/23/19 19 Active vit C/E/Zn/coppr/lutei n/zeaxan (PRESERVISION AREDS-2 ORAL) Take 1 Cap by mouth 2 times daily. Active HELIUM-OXYGEN INHL Inhale 2 L into the lungs daily. 2 liters at rest 3 liters with exertion Active Lactobacillus acidophilus (PROBIOTIC ORAL) Take by mouth 2 times daily. Active mucus clearing device (FLUTTER MISC) 1 Device by Does not apply route 4 times daily. 01/21/20 18 Active acetaminophen (TYLENOL) 500 mg tablet Take 500 mg by mouth every 6 hours as needed. Active albuterol HFA (ProAir HFA) 90 mcg/actuation inhaler INHALE 2 PUFFS INTO THE LUNGS 4 TIMES DAILY NEEDED FOR COUGH OR WHEEZING. 11/13/19 19 Active alendronate (FOSAMAX) 70 mg tablet TAKE 1 TABLET BY MOUTH WEEKLY WITH 8 OZ OF PLAIN WATER 30 MINUTES BEFORE FIRST FOOD, DRINK OR MEDS. STAY UPRIGHT FOR 30 MINS 02/10/20 24 Active calcium carbonate-vitamin D3 600 mg-5 mcg (200 unit) per tablet Take 1 Tablet by mouth 2 times daily. Active cholecalciferol (VITAMIN D-3) 25 mcg (1,000 unit) capsule Take 1 Cap by mouth daily. Active ezetimibe (ZETIA) 10 mg tablet Take 1 Tablet by mouth daily. 01/07/20 24 Active fluticasone-umecli dinium-vilanterol (Trelegy Ellipta) 200-62.5-25 mcg inhaler 02/08/20 23 Active ipratropium-albute roL (DUONEB) 0.5-2.5 mg/3 mL nebulizer solution Inhale 3 mL into the lungs 4 times daily. 01/25/20 20 Active melatonin 3 mg tablet Take 1 Tab by mouth at bedtime. Active omeprazole (PriLOSEC) [address] capsule TAKE 1 CAPSULE BY MOUTH TWICE DAILY 10/09/19 24 Active potassium chloride 20 mEq tablet extended release Take 10 mEq by mouth 1 (one) time each day in the morning. And 20 mEq in the evening 12/10/19 24 Active rifAMPin (RIFADIN) 300 mg capsule Three days a week 02/27/20 22 Active sodium chloride 7 % solution for nebulization nebulizer solution USE 1 VIAL VIA NEBULIZER TWICE DAILY 02/07/20 23 Active tobramycin (BALBINA 300) 300 mg/5 mL solution for nebulization 28 days on, 28 days off 12/19/19 23 Active coenzyme Q-10 100 mg capsule Take 300 mg by mouth daily. Active doxycycline (ADOXA) 100 mg tablet Take 1 tablet (100 mg total) by mouth 1 (one) time each day. 04/12/20 24 Active apixaban (Eliquis) 5 mg tablet Take 1 tablet (5 mg total) by mouth 2 (two) times a day. 180 tablet 2 07/08/19 25 Active sotaloL (BETAPACE) 80 mg tablet Take 1 tablet (80 mg total) by mouth every 12 (twelve) hours. 180 tablet 1 07/08/19 25 Active zolpidem (AMBIEN) 5 mg tablet Take 1 tablet (5 mg total) by mouth at bedtime as needed for sleep. for insomnia Max Daily Amount: 5 mg 28 tablet 08/11/19 25 Active LORazepam (ATIVAN) 0.5 mg tablet Take 1 tablet (0.5 mg total) by mouth at bedtime as needed for anxiety. 28 tablet 08/11/19 25 Active evolocumab (Repatha Syringe) 140 mg/mL syringeIndications :Hyperlipidemia, unspecified hyperlipidemia type ADMINISTER 1ML UNDER THE SKIN ONCE EVERY 2 WEEKS 6 mL 1 08/18/19 25 Active zolpidem (AMBIEN) 5 mg tablet TAKE 1 TABLET BY MOUTH AT BEDTIME NEEDED FOR INSOMNIA 28 tablet 06/08/20 24 025 Discontin ued(Reord er) LORazepam (ATIVAN) 0.5 mg tablet TAKE 1 TABLET BY MOUTH AT BEDTIME NEEDED FOR ANXIETY 28 tablet 06/08/20 24 025 Discontin ued(Reord er) evolocumab (Repatha Syringe) 140 mg/mL syringe ADMINISTER 1ML UNDER THE SKIN ONCE EVERY 2 WEEKS 2 mL 6 06/30/19 25 025 Discontin ued(Reord er) Active Problems Problem Noted Date Diagnosed Date COPD (chronic obstructive pulmonary disease) 01/2024 Overview (04/23/2024): Follows with [facility]. Atypical chest pain 08/13/2023 Overview (04/23/2024): Last Assessment & Plan: Based on the patient's description of the pain: Nonexertional, waxing and waning, response to therapy with prednisone, I have low suspicion that this burning sensation is of cardiac etiology. In fact, I would not want to subject her to any additional stress testing because I would not know what to do with the results. Even if she has subclinical coronary disease or evidence of perfusion defects, I would not be convinced that these would be the cause of her actual symptoms and therefore intervening would likely be of little benefit. Furthermore, stress testing in this patient is not necessarily a 0 risk issue-we would be looking at likely putting her on dobutamine given that she may not be able to receive regadenoson is on due to her extensive lung disease this is not necessarily prohibitive but is a much more intensive process. As such, I will explain my concerns with Dr. Brown as well. I would hold off on further cardiac testing. She is already being medically treated as if she has coronary disease with moderate to high intensity statin. There is probably minimal benefit to adding aspirin especially since she is on therapeutic anticoagulation. Patient is in agreement with this plan as well. 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 Pending results. I will follow- up on these results and get back to the patient. It is asymptomatic. Gross hematuria 09/15/2017 Atrial flutter 06/11/2017 Overview (05/07/2024): - Met Dr. Rodarte of cardiology when in the ER for sudden onset palpitations-she was found to be in 2-1 atrial flutter - Incidentally on his consult he mentioned that she had no prior cardiac history - She was seen by Dr. Self of electrophysiology during this admission as well because heart rates were refractory to dual AV misael blocking agents - Because she had typical counterclockwise isthmus dependent flutter, she proceeded to ablation of typical atrial flutter on 04/02/2016-ablation report mentions that a comprehensive EP study was performed and there was no inducible atrial fibrillation or AV misael reentrant tachycardia, there were no obvious accessory pathways -After much research and looking in multiple different EMR's-she was kept on sotalol not because she was actually thought to have atrial fibrillation but because there is a progress note from Dr. Self from 04/02/2016 which states I suspect high risk for paroxysmal atrial fibrillation without antiarrhythmic therapy and therefore she was loaded on sotalol in replacement of metoprolol - She has continued sotalol for this risk alone and from what I can tell no actual documented atrial fibrillation since that time- this was even mentioned in Dr. 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 On Eliquis for CVA prophylaxis, on sotalol. Instructed to call 911 or go to the emergency room should the patient begin to experience chest pain or pressure lasting greater than 10 minutes does not resolve with rest. Orders: ECG 12 lead Assessment & Plan (05/07/2024 4:41 PM EST): No recurrence since a flutter ablation but was kept on sotalol for suppression of possible atrial fibrillation for electrophysiology given that she probably has a high risk of developing this; however I have discussed her case with Dr. 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 Colon polyp 03/15/2015 Diverticulitis 03/15/2015 GERD (gastroesophageal reflux disease) 5 Glaucoma 03/15/2015 Hyperlipidemia 03/15/2015 Assessment & Plan (08/17/2024 3:46 PM EST): Patient has documented myalgias to statins. Utilize ezetimibe and Repatha. Assessment & Plan (05/07/2024 4:41 PM EST): Given that she did not have any flulike symptoms with Repatha on the most recent injection, I am inclined to believe that the symptoms are more related to her pneumonia than anything else. For now would like to cautiously continue Repatha since it seems to be working quite well for for lipid-lowering therapy and she has known carotid vascular disease. This is important for secondary prevention. Hypertension 03/15/2015 Assessment & Plan (08/17/2024 3:46 PM EST): Slightly elevated at the appointment today. I would like her to take blood pressure measurements at home and report back to the office what her measurements are. Orders: Basic metabolic panel; Future Assessment & Plan (05/07/2024 4:41 PM EST): Patient has actually been hypotensive-I suspect this is related to her recurrent illnesses and possibly decreased p.o. intake. She does report that she has been drinking at least 60 fluid ounces of water a day. In the short-term, I have told her to discontinue hydrochlorothiazide and check her blood pressure every day. As long as blood pressure is less than 140/90 while she is ill or 130/90 when well, we can continue without HCTZ. I have taken it off of her med list. She can be reassessed by Dr. Yoon at upcoming appointment in September 2024 to decide if it is needed again. She will keep me posted if there are any problems with this or if she starts developing lower extremity edema. Onychomycosis 03/15/2015 Osteopenia 03/15/2015 Overview (04/23/2024): This patient has a 33% risk of major osteoporotic fracture and a 23% risk of hip fracture over the next 10 years. Encounters Date Type Department Care Team Description 08/19/2024 11:15 AM EST Ancillary Procedure [facility] [address] [place] [address] Bilateral carotid bruits 08/17/2024 Telephone [facility] [address] [place] [phone] Luis Alberto Marte NP Prior Auth (Repatha) 08/13/2024 2:40 PM EST Office Visit [facility] [address] [facility] [address] [place] [phone] Luis Alberto Marte NP Atrial flutter, unspecified type ([facility]) (Primary Dx); Pure hypercholesterolemia ; Primary hypertension; Palpitations; Bilateral carotid bruits 07/08/2024 Telephone [facility] [address] [facility] [address] [place] [phone] Mary Anne Vargas MD Med Refill (Incoming fax [facility] Sotalol, Eliquis ) from Last 3 Months Immunizations Name Administration Dates Next Due Influenza trivalent, 0.5mL ( Fluad) 65yo and older 03/20/2021,03/06/2018,02/28/2017,03/05 Influenza, Unspecified 04/01/2022,03/06/2018, OPV 05/26/2008 Pneumococcal conjugate 13 va lent (Prevnar 13, PCV13) 2mo and older 05/03/2015 Pneumococcal polysaccharide 23 valent (Pneumovax 23) 2yo and older 04/14/2013,05/20/2006 Td Tetanus diptheria (Tdvax) 7yo and older 05/15/2022 Typhoid VICPS (Typhim Vi) 2y o and older 06/23/2013 Zoster Live 02/07/2009 Surgical History Surgery Date Site/Laterality Comments APPENDECTOMY PROCEDURE:APPENDECTOMY APPENDECTOMY PROCEDURE: ND APPENDECTOMY TONSILLECTOMY PROCEDURE: HISTORICAL TONSILLECTOMY Medical History Medical History Date Comments Asthma DX:Asthma COPD (chronic obstructive pu lmonary disease) (CMS/HCC) DX:COPD (chronic obstructive pulmonary disease) ([facility]) High blood pressure DX:High bloo d pressure Osteoporosis DX:Osteoporosis GERD (gastroesophageal reflux disease) DX:GERD (gastroesophageal reflux disease) COPD (chronic obstructive pu lmonary disease) (CMS/HCC) DX:COPD (chronic obstructive pulmonary disease) ([facility]); COMMENT: dr mehta History of tobacco abuse DX:Hist ory of tobacco abuse; COMMENT: 35 pk yrs Glaucoma 03/15/2015 DX:Glaucoma Hyperlipidemia 03/15/2015 DX:Hyperlipidemi a GERD (gastroesophageal reflux disease) 03/15/2015 DX:GERD (gastroesophageal reflux disease) Hypertension 03/15/2015 DX:Hypertension Diverticulitis 03/15/2015 DX:Diverticuliti s Onychomycosis 03/15/2015 DX:Onychomycosis Colon polyp 03/15/2015 DX:Colon polyp Anxiety 07/30/2016 DX:Anxiety Atrial flutter (CMS/HCC) 06/11/2017 DX:Atri al flutter ([facility]); COMMENT: On sotalol and eliquis; s/p abalation in 2016; follow reg with cards 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 of flyin g Gross hematuria 09/15/2017 DX:Gross hematur ia Osteopenia 03/15/2015 DX:Osteopenia Pulmonary nodule 04/09/2016 DX:Pulmonary no dule Thyroid nodule 12/2018 DX:Thyroid nodul e; COMMENT: 3 mm benign features Carotid stenosis, bilateral DX:C arotid stenosis, bilateral CHEMO (mycobacterium avium-intracellulare) infection (CMS/HCC) 10/01/2022 DX:CHEMO (mycobacterium avium-intracellulare) infection ([facility]) Family History Medical History Relation Name Comments Ovarian cancer Aunt paternal Hypertension Brother afib, pulm embo celio Cancer Father Coronary artery disease Father 76 Hypertension Father Other: afib Father Cancer Mother Other: head and neck cancer Mother Hypertension Sister glaucoma, grave s disease Relation Name Status Comments Aunt Brother Father Mother Sister Social History Tobacco Use Types Packs/Day Years [...] PM EDT Sexual Orientation Not on file Obstetrics History Last Filed Vital Signs Vital Sign Reading Time Taken Comments Blood Pressure 152/70 08/13/2024 2:30 PM EST Pulse 89 08/13/2024 2:30 PM EST Temperature - - Respiratory Rate - - Oxygen Saturation 92% 08/13/2024 2:30 PM EST Inhaled Oxygen Concentration - - Weight 57.2 kg (126 lb) 08/13/2024 2:30 PM EST Height 167.6 cm (5' 6 ) 08/13/2024 2:30 PM EST Body Mass Index 20.34 08/13/2024 2:30 PM EST Plan of Treatment Upcoming Encounters Date Type Department Care Team (Late st Contact Info) Description 08/31/2024 10:00 AM EDT Ancillary Procedure [facility] [address] [facility] [address] [place] [address] 09/24/2024 11:00 AM EDT Office Visit Adult Medicine [facility] [address] [place] [address] Daniel Yoon MD [address] [place] [address] 11/30/2024 2:40 PM EDT Office Visit [facility] [address] [facility] [address] [place] [address] Luis Alberto Marte NP [address] [place] [address] Health Maintenance Due Date Last Done Comments IPV Vaccines (2 of 3 - Adult catch-up series) 06/23/2008 05/26/2008 Zoster Vaccines (2 of 3) 04/04/2009 02/07/2009 Depression Screening 07/18/2021 Medicare Annual Wellness Visit 07/18/2021 Social Influencers of Health Screening 07/18/2021 Falls Risk Assessment 05/16/2024 05/16/2023 Hypertension/CHF/CAD Annual BMP Blood Test 04/22/2025 04/22/2024, 09/19/2023 Cholesterol Screening (Lipid Panel) 04/22/2029 04/22/2024, 02/09/2024, 12/19/2023 DTaP,Tdap,and Td Vaccines (2 - Td or Tdap) 05/15/2032 05/15/2022 Osteoporosis Screening (Bone Density Screening) 06/12/2032 06/12/2022, 03/10/2018 Pneumococcal Vaccine: 50+ Years Completed 01/22/2023, 05/03/2015, 04/14/2013, Additional history exists RSV Immunization Patients 60+ Years Old Completed 04/02/2023 COVID-19 Vaccine Completed 03/26/2024, , 03/29/2022, Additional history exists Influenza Vaccine Completed 03/26/2024, , 04/01/2022, Additional history exists HIB Vaccines Aged Out No longer eligi ble based on patient's age to complete this topic HPV Vaccines Aged Out No longer eligi ble based on patient's age to complete this topic Hepatitis A Vaccines Aged Out No long er eligible based on patient's age to complete this topic Hepatitis B Vaccines Aged Out No long er eligible based on patient's age to complete this topic MMR Vaccines Aged Out No longer eligi ble based on patient's age to complete this topic Meningococcal ACWY Vaccine Aged Out N o longer eligible based on patient's age to complete this topic Meningococcal B Vacine Aged Out No lo nger eligible based on patient's age to complete this topic RSV Immunization Patients Under 20 months Aged Out No longer eligible based on patient's age to complete this topic Varicella Vaccines Aged Out No longer eligible based on patient's age to complete this topic Procedures Procedure Name Priority Date/Time Associated Diagnosis Comments VAS US DUPLEX CAROTID BILATERAL Routine 08/19/2024 11:21 AM EST Bilateral carotid bruits ECG 12-LEAD Routine 08/17/2024 3:46 PM EST Atrial flutter, unspecified type (CMS/HCC) BASIC METABOLIC PANEL Routine 04/22/2024 8:08 AM EST Routine medical exam LIPID PANEL WITH REFLEX TO DIRECT LDL Routine 04/22/2024 8:08 AM EST Routine medical exam HM FALLS RISK ASSESSMENT Routine 05/16/2023 DXA BONE DENSITY STUDY 1+ SITS AXIAL SKEL Routine 06/12/2022 11:15 AM EST Other specified disorders of bone density and structure, unspecified site Encounter for screening for osteoporosis from Last 3 Months or Most Recently Relevant to Health Maintenance Results * Vascular US duplex carotid bilateral [...] Interpretation was done according to the [place] Symptomatic Carotid Endarterectomy Trial (NASCET) criteria ??and [...] no significant plaque. Vertebral flow is antegrade. Client Retention Specialist Details A gtz scale, color and doppler analysis ultrasound was performed. During the study longitudinal and transverse views were obtained. Pulsed wave doppler was performed. us Luis Alberto Marte NP CV VASCULAR PROCEDURES Final Res ult * ECG 12 lead (08/17/2024 3:46 PM EST) 08/13/2024 2:35 PM EST us Luis Alberto Marte NP ECG ORDERABLES Final Result GEMUSE * Lipid panel with reflex to direct LDL (04/22/2024 8:08 AM EST) Cholesterol 144 0 - 200 mg/dL LAB CHEMISTRY METHOD 04/22/2024 10:14 AM [facility] Triglycerides 101 0 - 150 mg/dL LAB CHEMISTRY METHOD 04/22/2024 10:14 AM [facility] HDL 68 >=40 mg/dL LAB CHEMISTRY METHOD 04/22/2024 10:14 AM [facility] LDL Calculated 56 0 - 100 mg/dL LAB CHEMISTRY METHOD 04/22/2024 10:14 AM [facility] VLDL Cholesterol Carlos 20.2 mg/dL LAB CHEMISTRY METHOD 04/22/2024 10:14 AM [facility] Non HDL Chol. (LDL+VLDL) 76 <145 mg/dL LAB CHEMISTRY METHOD 04/22/2024 10:14 AM [facility] Chol/HDL Ratio 2.1 0.0 - 4.4 LAB CHEMISTRY METHOD 04/22/2024 10:14 AM [facility] Blood Venous blood specimen / Unknown Venipuncture / Unknown 04/22/2024 8:08 AM EST 04/22/2024 8:08 AM EST us Angélica WHITFIELD LAB BLOOD ORDERABLES Final Re sult [facility] [address] [place] [address], * (ABNORMAL) Basic metabolic panel (04/22/2024 8:08 AM EST) Pathologist [facility] Sodium 137 133 - 145 mmol/L LAB CHEMISTRY METHOD 04/22/2024 10:14 AM [facility] Potassium 4.4 3.5 - 5.5 mmol/L LAB CHEMISTRY METHOD 04/22/2024 10:14 AM [facility] Chloride 99 96 - 110 mmol/L LAB CHEMISTRY METHOD 04/22/2024 10:14 AM [facility] CO2 33(H) 21 - 32 mmol/L LAB CHEMISTRY METHOD 04/22/2024 10:14 AM [facility] Anion Gap 5 3 - 11 LAB CHEMISTRY METHOD 04/22/2024 10:14 AM [facility] Glucose 116(H) 70 - 100 mg/dL LAB CHEMISTRY METHOD 04/22/2024 10:14 AM [facility] BUN 16 5 - 25 mg/dL LAB CHEMISTRY METHOD 04/22/2024 10:14 AM [facility] Creatinine 0.78 0.50 - 1.10 mg/dL LAB CHEMISTRY METHOD 04/22/2024 10:14 AM [facility] eGFR 76 >=60 mL/min/1. 73m2 LAB CHEMISTRY METHOD 04/22/2024 10:14 AM [facility] Comment:Calculation based on the??Chronic Kidney Disease Epidemiology Collaboration (CKD-EPI) equation refit??without adjustment for race. BUN/Creatinine Ratio 20.5 LAB CHEMISTRY METHOD 04/22/2024 10:14 AM [facility] Calcium 10.5 8.5 - 10.5 mg/dL LAB CHEMISTRY METHOD 04/22/2024 10:14 AM [facility] Blood Venous blood specimen / Unknown Venipuncture / Unknown 04/22/2024 8:08 AM EST 04/22/2024 8:08 AM EST us Daniel Yoon MD LAB BLOOD ORDERABLES Final Resu lt [facility] [address] [place] [address], * Hm Falls Risk Assessment (05/16/2023) [facility] Falls Risk Assessment Abstracted us Historical Provider HEALTH MAINTENANCE Final Result * DXA BONE DENSITY STUDY 1+ SITS AXIAL SKEL (06/12/2022 11:15 AM EST) Anatomical Region Laterality Modality Bone Densitometr y 05/15/2022 9:44 AM EST Narrative 06/12/2022 1:29 PM EST BONE DENSITY (DEXA) ? Lumbar Spine T-score is -1.2. ?? (SD relative to 20-29 y/o adult) Z-score is 1.5. ??(SD relative to age matched peers) This is considered osteopenia by WHO criteria. Left Hip T-score is -2.4. Z-score is -0.1. This is considered osteopenia by WHO criteria. IMPRESSION: This patient is considered to have osteopenia by WHO criteria. This patient has a 33% risk of major osteoporotic fracture and a 23% risk of hip fracture over the next 10 years. (World Health Organization Fracture Risk Assessment) [facility] Department of Internal Medicine recommends using National Osteoporosis Foundation (NOF) guidelines in treatment decisions related to osteoporosis. NOF guidelines suggest considering treatment for postmenopausal women and men aged 50 or older presenting with the following: History of hip or vertebral fracture. T-score = -2.5 (DXA) at the femoral neck, total hip, or spine, after appropriate evaluation to exclude secondary causes. Low bone mass (T-score between -1.0 and -2.5 at the femoral neck or spine) AND a 10-year probability of a hip fracture = 3% OR a 10-year probability of a major osteoporosis-related fracture = 20% based on the [place]-adapted WHO algorithm Please note that all treatment decisions require clinical judgment and consideration of individual patient factors, including patient preferences, co-morbidities, previous drug use, risk factors not captured in the FRAX model (e.g., frailty, falls, vitamin D deficiency, increased bone turnover, interval significant decline in bone density) and possible under- or over-estimation of fracture risk by FRAX. Optional alternative screening schedule based on canelo Ryder., [facility] July 04, 2011 for patients with osteopenia (based on hip BMD T-score) is as follows: * ??advanced osteopenia (T scores -2.00 to -2.49), BMD testing every year * ??moderate osteopenia (T scores -1.50 to -1.99), BMD testing every 5 years mild osteopenia or normal BMD (T scores -1.50 and higher), BMD testing every 15 years Procedure Note Felicity Edwards MD - 07/22/2023 BONE DENSITY (DEXA) Lumbar Spine T-score is -1.2. (SD relative to 20-29 y/o adult) Z-score is 1.5. (SD relative to age matched peers) This is considered osteopenia by WHO criteria. Left Hip T-score is -2.4. Z-score is -0.1. This is considered osteopenia by WHO criteria. IMPRESSION: This patient is considered to have osteopenia by WHO criteria. Thispatient has a 33% risk of major osteoporotic fracture and a 23% risk of hip fracture over the next10 years. (World Health Organization Fracture Risk Assessment) [facility] Department of Internal Medicine recommendsusing National Osteoporosis Foundation (NOF) guidelines in treatment decisions related toosteoporosis. NOF guidelines suggest considering treatment for postmenopausal women and menaged 50 or older presenting with the following: History of hip or vertebral fracture. T-score = -2.5 (DXA) at the femoral neck, total hip, or spine, afterappropriate evaluation to exclude secondary causes. Low bone mass (T-score between -1.0 and -2.5 at the femoral neck or spine)AND a 10-year probability of a hip fracture = 3% OR a 10-year probability of a majorosteoporosis-related fracture = 20% based on the [place]-adapted WHO algorithm Please note that all treatment decisions require clinical judgment andconsideration of individual patient factors, including patient preferences, co- morbidities,previous drug use, risk factors not captured in the FRAX model (e.g., frailty, falls, vitaminD deficiency, increased bone turnover, interval significant decline in bone density) andpossible under- or over-estimation of fracture risk by FRAX. Optional alternative screening schedule based on canelo Ryder., NEJJanuary 2011 for patients with osteopenia (based on hip BMD T-score) is as follows: * advanced osteopenia (T scores -2.00 to -2.49), BMD testing every year * moderate osteopenia (T scores -1.50 to -1.99), BMD testing every 5years mild osteopenia or normal BMD (T scores -1.50 and higher), BMD testingevery 15 years Ginger [facility] IM DXA PROCEDURES Final Result from Last 3 Months or Most Recently Relevant to Health Maintenance Insurance MEDICARE [facility] Advance Directives Documents on File Type Date Recorded Patient 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 Commodity Manager Expl anation Health Care Decision (hx) 08/22/2023 AD ORR DIRECTIVE Health Care Decision (hx) 08/22/2023 AD ORR DIRECTIVE Health Care Decision (hx) 08/20/2023 HE ALTH CARE PROXY Health Care Decision (hx) 08/20/2023 AD ORR DIRECTIVE Health Care Decision (hx) 10/29/2021 AD ORR DIRECTIVE Health Care Decision (hx) 10/29/2021 AD ORR DIRECTIVE Health Care Decision (hx) 10/29/2021 AD ORR DIRECTIVE Health Care Decision (hx) 10/29/2021 AD ORR DIRECTIVE Health Care Decision (hx) 10/29/2021 AD ORR DIRECTIVE Health Care Decision (hx) 10/29/2021 AD ORR DIRECTIVE Health Care Decision (hx) 10/29/2021 AD ORR DIRECTIVE Health Care Decision (hx) 10/29/2021 AD ORR DIRECTIVE Health Care Decision (hx) 10/29/2021 AD ORR DIRECTIVE Health Care Decision (hx) 10/29/2021 AD ORR DIRECTIVE Health Care Decision (hx) 10/29/2021 AD ORR DIRECTIVE Care Teams Metalsmith Relationship Specialty Start Date End Date Daniel Yoon MD [address] [place] [id number] PCP - General Internal Medicine 04/30/24
--- OUTSIDE RECORDS SUMMARY | 2024-08-24 13:33 | XMS_ITS | Encounter Summary ---
Author Organization [facility] Address [address] [place] [address] Care Team Providers Care Forge Press Operator Name Role Phone Daniel Yoon MD Primary Care Provider [phone] Reason for Referral * Imaging (Routine) - Closed Specialty Diagnoses / Procedures Referred By Contac t Referred To Contact Diagnoses Bilateral carotid bruits Procedures Vascular US duplex carotid bilateral Luis Alberto Marte NP [address] [place] [address] Phone: tel: fax: [facility] Referral ID Status Reason Start Date Expiration Date Visits Re quested Visits Authorized [id number] Closed 08/13/2024 08/13/2025 1 1 * Cardiac Stress Testing (Routine) - Authorized Specialty Diagnoses / Procedures Referred By Contac t Referred To Contact Cardiology Diagnoses Palpitations Procedures Cardiac holter monitor (<= 48 hours) RI ECG EXTERNAL UP TO 48 HOURS RECORDING RI ECG EXTERNAL < 48 HOURS CONTINUOUS RECORDING/STORAGE R&I BY A PHYS/QHP RI EXTERNAL ECG UP TO 48 HRS INCL RECORDING SCANNING ANLYS W REPORT Luis Alberto Marte NP [address] [place] [address] Phone: tel: fax: [facility] Referral ID Status Reason Start Date Expiration Date V isits Requested Visits Authorized [id number] Authorized 08/13/2024 08/13/2025 1 1 Reason for Visit * Reason Comments Follow-up Encounter Details Date Type Department Care Team (Late st Contact Info) Description 08/13/2024 2:40 PM EST Office Visit [facility] - [facility] [address] [facility] [address] [place] [phone] Luis Alberto Marte NP [address] [place] [address] Atrial flutter, unspecified type (CMS/HCC) (Primary Dx); Pure hypercholesterolemia ; Primary hypertension; Palpitations; Bilateral carotid bruits Social History Tobacco Use [...] on file documented as of this encounter Last Filed Vital Signs Vital Sign Reading [...] Mass Index 20.34 08/13/2024 2:30 PM EST documented in this encounter Progress Notes * Luis Alberto Marte NP - 08/13/2024 2:40 PM ESTAssociated Problem(s): Atrial flutter (CMS/HCC) Patient denies any abnormal bleeding. On Eliquis for CVA prophylaxis, on sotalol. Instructed to call 911 or go to the emergency room should the patient begin to experience chest pain or pressure lasting greater than 10 minutes does not resolve with rest. Orders: ECG 12 lead * Luis Alberto Marte NP - 08/13/2024 2:40 PM ESTAssociated Problem(s): Hyperlipidemia Patient has documented myalgias to statins. Utilize ezetimibe and Repatha. * Luis Alberto Marte NP - 08/13/2024 2:40 PM ESTAssociated Problem(s): Hypertension Slightly elevated at the appointment today. I would like her to take blood pressure measurements athome and report back to the office what her measurements are. Orders: Basic metabolic panel; Future * Luis Alberto Marte NP - 08/13/2024 2:40 PM EST Images from the original note were not included. [facility] PRIMARY ASSISTANT HALL DIRECTOR: Mary Anne Best MD PCP: Daniel Yoon MD HPI: Zainab Jackson is a 83 y.o. old female who presents for cardiac follow-up of: 1. Paroxysmal atrial flutter 2. Peripheral vascular disease-bilateral 50 to 69% internal carotid stenosis 3. Hypertension 4. Hyperlipidemia She is also followed extensively by Dr. Dominick Brown for pulmonary issues including COPD of which she is oxygen dependent, tracheobronchomalacia, bronchiectasis. She has chronic lung infections. 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 The previous appointment the patient had just recovered for another episode of pneumonia. Was on antibiotics until just a week before. She was reporting feeling weak, bring up yuen-colored sputum. Also reported a hot flash symptom. Patient had sotalol discontinued due to the need for the patient to use will be able to use QT prolonging antibiotics. Was kept on Eliquis for CVA prophylaxis. Patient is here for a routine cardiac follow-up. She seems to be doing okay from a cardiac standpoint. She still reporting some dyspnea on exertion, however, she has this at baseline and feels that it is about the same. She does utilize the O2 [id number]-[id number]. She reports that since she stopped the hydrochlorothiazide her dizziness has improved dramatically. She is still taking this sotalol, as t he railroad police did not deem it necessary to come off of the QT prolongation, there was a questionof if the patient needed to be able to use azithromycin for frequent pulmonary infections. She states that she is somewhat active during the day. She exerts her self, but reports it does not take much to get tired due to the history of pulmonary issues. The only cardiac complaint she has is occasion al palpitations that occur mostly at night. These self relieving do not last long. She denies all other cardiac symptoms. She denies chest pain, syncope/presyncope, dizziness, edema, PND, or orthopnea. Outpatient Medications Marked as Taking for the 08/13/24 encounter (Office Visit) with Luis Alberto Marte NP Medication Sig Dispense Refill acetaminophen (TYLENOL) 500 mg tablet Take 500 mg by mouth every 6 hours as needed. albuterol HFA (ProAir HFA) 90 mcg/actuation inhaler INHALE 2 PUFFS INTO THE LUNGS 4 TIMES DAILY NEEDED FOR COUGH OR WHEEZING. alendronate (FOSAMAX) 70 mg tablet TAKE 1 TABLET BY MOUTH WEEKLY WITH 8 OZ OF PLAIN WATER 30 MINUTES BEFORE FIRST FOOD, DRINK OR MEDS. STAY UPRIGHT FOR 30 MINS apixaban (Eliquis) 5 mg tablet Take 1 tablet (5 mg total) by mouth 2 (two) times a day. 180 tablet 2 calcium carbonate-vitamin D3 600 mg-5 mcg (200 unit) per tablet Take 1 Tablet by mouth 2 times daily. cholecalciferol (VITAMIN D-3) 25 mcg (1,000 unit) capsule Take 1 Cap by mouth daily. coenzyme Q-10 100 mg capsule Take 300 mg by mouth daily. doxycycline (ADOXA) 100 mg tablet Take 1 tablet (100 mg total) by mouth 1 (one) time each day. ezetimibe (ZETIA) 10 mg tablet Take 1 Tablet by mouth daily. mfaoocsjvwa-tqepywlpntji-apwlnrmetz (Trelegy Ellipta) 200-62.5-25 mcg inhaler glucosamine/chondro kennedy A/C/Mn (YAUVZQQYQHL-TWZRJUSOO-WVT C-MN ORAL) Take 1 Cap by mouth 2 times daily. guaifenesin (MUCINEX ORAL) if needed. HELIUM-OXYGEN INHL Inhale 2 L into the lungs daily. 2 liters at rest 3 liters with exertion ipratropium-albuteroL (DUONEB) 0.5-2.5 mg/3 mL nebulizer solution Inhale 3 mL into the lungs 4 times daily. Lactobacillus acidophilus (PROBIOTIC ORAL) Take by mouth 2 times daily. LORazepam (ATIVAN) 0.5 mg tablet Take 1 tablet (0.5 mg total) by mouth at bedtime as needed for anxiety. 28 tablet 0 magnesium oxide 400 mg magnesium capsule Take 1 Cap by mouth daily. melatonin 3 mg tablet Take 1 Tab by mouth at bedtime. omeprazole (PriLOSEC) [address] capsule TAKE 1 CAPSULE BY MOUTH TWICE DAILY potassium chloride 20 mEq tablet extended release Take 10 mEq by mouth 1 (one) time each day in themorning. And 20 mEq in the evening rifAMPin (RIFADIN) 300 mg capsule Three days a week sodium chloride 7 % solution for nebulization nebulizer solution USE 1 VIAL VIA NEBULIZER TWICE DAILY sotaloL (BETAPACE) 80 mg tablet Take 1 tablet (80 mg total) by mouth every 12 (twelve) hours. 180 tablet 1 vit C/E/Zn/coppr/lutein/zeaxan (PRESERVISION AREDS-2 ORAL) Take 1 Cap by mouth 2 times daily. zolpidem (AMBIEN) 5 mg tablet Take 1 tablet (5 mg total) by mouth at bedtime as needed for sleep. 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 Appearance: Normal appearance. HENT: Head: Normocephalic and atraumatic. Right Ear: External ear normal. Left Ear: External ear normal. Nose: Nose normal. Eyes: Conjunctiva/sclera: Conjunctivae normal. Neck: Vascular: No carotid bruit. Cardiovascular: Rate and Rhythm: Normal rate and regular rhythm. Pulses: Normal pulses. Heart sounds: Normal heart sounds. No murmur heard. No friction rub. No gallop. Pulmonary: Effort: Pulmonary effort is normal. Breath sounds: Normal breath sounds. No wheezing, rhonchi or rales. Abdominal: General: There is no distension. Musculoskeletal: Cervical back: Neck supple. Right lower leg: No edema. Left lower leg: No edema. Skin: General: Skin is warm and dry. Neurological: General: No focal deficit present. Mental Status: She is alert and oriented to person, place, and time. Mental status is at baseline. EKG: Encounter Date: 05/07/24 ECG 12 lead Result Value Ventricular Rate ECG 85 Atrial Rate 85 P-R Interval 206 QRS Duration 130 Q-T Interval 412 QTc 490 P Wave [place] 84 R [place] 79 T [place] 69 ECG Interpretation Normal sinus rhythm Left bundle branch block Abnormal ECG When compared with ECG of 20-AUG-2023 11:01, Premature supraventricular complexes are no longer Present Left bundle branch block is now Present Criteria for Anterior infarct are no longer Present Confirmed by MARY ANNE BEST ([id number]) on 05/07/2024 3:17:32 PM *Note: Due to a large number of results and/or encounters for the requested time period, some results have not been displayed. A complete set of results can be found in Results Review. TESTING: ASSESSMENT/PLAN: Assessment & Plan Atrial flutter, unspecified type (CMS/HCC) Patient denies any abnormal bleeding. On Eliquis for CVA prophylaxis, on sotalol. Instructed to call 911 or go to the emergency room should the patient begin to experience chest pain or pressure lasting greater than 10 minutes does not resolve with rest. Orders: ECG 12 lead Pure hypercholesterolemia Patient has documented myalgias to statins. Utilize ezetimibe and Repatha. Primary hypertension Slightly elevated at the appointment today. I would like her to take blood pressure measurements athome and report back to the office what her measurements are. Orders: Basic metabolic panel; Future Palpitations Patient did report some palpitations, will evaluate with a 48-hour Holter monitor to see if she is symptomatic to PVCs, and also determine what her average heart rate is. Orders: Cardiac holter monitor (<= 48 hours); Future Bilateral carotid bruits Will order carotid ultrasound. Orders: Vascular US duplex carotid bilateral; Future Thank you for allowing us to participate in the care of this patient. The patient will follow up in3 months, sooner PRN. As per AHA guidelines and previously established plan of care by Dr. Mary Anne Best MD, we discussedthe following today: 1. Atrial flutter, unspecified type (CMS/HCC) 2. Pure hypercholesterolemia 3. Primary hypertension 4. Palpitations 5. Bilateral carotid bruits [facility] documented in this encounter Plan of Treatment Upcoming Encounters Date Type Department Care Team (Late st Contact Info) Description 08/31/2024 10:00 AM EDT Ancillary Procedure [facility] Cardiology [facility] [address] [place] [address] 09/24/2024 11:00 AM EDT Office Visit Adult Medicine [facility] [address] [place] [address] Daniel Yoon MD [address] [place] [address] 11/30/2024 2:40 PM EDT Office Visit [facility] - [facility] [address] [facility] [address] [place] [address] Luis Alberto Marte NP [address] [place] [address] Pending Results Name Type Priority Associated Diagnoses Date /Time Basic metabolic panel Lab Routine Primary hypertension 08/24/2024 12:12 PM EDT Scheduled Orders Name Type Priority Associated Diagnoses Orde r Schedule Cardiac holter monitor (<= 48 hours) Cardiac Services Routine Palpitations 1 Occurrences starting 08/13/2024 until 08/13/2025 Basic metabolic panel Lab Routine Primary hypertension Expected: 08/13/2024, Expires: 08/13/2025 documented as of this encounter Procedures Procedure Name Priority Date/Time Associated Diagnosis Comments ECG 12-LEAD Routine 08/17/2024 3:46 PM EST Atrial flutter, unspecified type (CMS/HCC) documented in this encounter Results * Vascular [...] Interpretation was done according to the [place] Symptomatic Carotid Endarterectomy Trial (NASCET) criteria ??and [...] no significant plaque. Vertebral flow is antegrade. Data Communications Analyst Details A gtz scale, color and doppler analysis ultrasound was performed. During the study longitudinal and transverse views were obtained. Pulsed wave doppler was performed. us Luis Alberto Marte NP CV VASCULAR PROCEDURES Final Res ult * ECG 12 lead (08/17/2024 3:46 PM EST) 08/13/2024 2:35 PM EST us Luis Alberto Marte NP ECG ORDERABLES Final Result GEMUSE documented in this encounter Visit Diagnoses Diagnosis Atrial flutter, unspecified type (CMS/HCC)- Primary Pure hypercholesterolemia Primary hypertension Unspecified essential hypertension Palpitations Bilateral carotid bruits Bilateral carotid bruits documented in this encounter Care Teams Forge Press Operator Relationship Specialty Start Date End Date Daniel Yoon MD [address] [place] [address] PCP - General Internal Medicine 04/30/24 documented as of this encounter
--- OUTSIDE RECORDS SUMMARY | 2024-08-24 13:33 | XMS_ITS | Clinical Summary ---
Author Organization [facility] Address [address] [place] [address] Care Team Providers Care Urban And Regional Planner Name Role Phone Daniel Yoon MD Primary Care Provider [phone] Allergies No known active allergies Medications Medication Sig Dispensed Refills Start Date End Date Status albuterol 108 (90 Base) MCG/ACT inhaler 0 01/28/2022 Act adriana Eliquis 5 MG TABS tablet 0 02/06/2022 Active atorvastatin (LIPITOR) tablet 20 mg 0 01/29/2022 Active ethambutol (MYAMBUTOL) 400 MG tablet 0 03/24/2022 Active fluticasone-salmetero l (Wixela Inhub) 500-50 MCG/ACT AEPB 0 02/06/2022 Activ e hydroCHLOROthiazide (HYDRODIURIL) tablet 25 mg 0 02/06/2022 Active omeprazole (PriLOSEC) 20 MG capsule 0 02/06/2022 Active potassium chloride ER (K-DUR,KLOR-CON) tablet 20 mEq 0 01/28/2022 Active rifAMPin (RIFADIN) 300 MG capsule 0 03/24/2022 Active Daliresp 250 MCG tablet Take 1 tablet (250 mcg total) by mouth daily. 0 02/19/2022 Active sotalol (BETAPACE) 80 MG tablet 0 02/06/2022 Active Spiriva HandiHaler 18 MCG inhalation capsule 0 02/06/2022 Active zolpidem (AMBIEN) 5 MG tablet Take 1 tablet (5 mg total) by mouth every night at bedtime as needed. for insomnia 0 02/22/2022 Active Active Problems Problem Noted Date Diagnosed Date Follow-up exam after treatment 07/10/2022 Family History Medical History Relation Name Comments Cancer Father Hypertension Father Cancer Mother Relation Name Status Comments Father Mother Social History Tobacco Use Types Packs/Day Years Used Date Smoking Tobacco: Never Assessed Sex and Gender Information Value Date Recorded Sex Assigned at Not on file Gender Identity Not on file Sexual Orientation Not on file Job Start Date Occupation Industry Not on file Not on file Not on file Last Filed Vital Signs Vital Sign Reading Time Taken Comments Blood Pressure - - Pulse - - Temperature - - Respiratory Rate - - Oxygen Saturation - - Inhaled Oxygen Concentration - - Weight 64.9 kg (143 lb) 07/22/2022 10:52 AM EST Height 167.6 cm (5' 6 ) 07/22/2022 10:52 AM EST Body Mass Index 23.08 07/22/2022 10:52 AM EST Plan of Treatment Health Maintenance Due Date Last Done Comments COVID-19 Vaccine (#1) 04/12/1941 Depression Screening 1953 Preventative Health Evaluation 10/12/1959 Shingrix-Zoster Vaccine (1 of 2) 10/12/1991 Fall Risk Assessment 2006 Osteoporosis Screening (DEXA Scan) 2006 RSV Adult > 60+ Yrs or (1 - 1-dose 75+ series) 2016 DTap / Tdap / Td (1 - Tdap) 05/16/2022 05/15/2022 Influenza Vaccine (#1) 2024 , 03/06/2018, 02/28/2017, Additional history exists Pneumococcal Vaccine Completed 05/03/2015, 04/14/2013, 05/20/2006 Hepatitis B Vaccines Aged Out No long er eligible based on patient's age to complete this topic RSV Ped < 20 months Aged Out No longe r eligible based on patient's age to complete this topic Care Teams Urban And Regional Planner Relationship Specialty Start Date End Date Daniel Yoon MD PCP - General Internal Medicine 04/03/22
--- OUTSIDE RECORDS SUMMARY | 2024-08-24 13:33 | XMS_ITS | Encounter Summary ---
Author Organization [facility] Address [address] [place] [address] Care Team Providers Care Sustainability Consultant Name Role Phone Daniel Yoon MD Primary Care Provider Reason for Visit * Reason Onset Date Comments Prior Auth 08/17/2024 Repatha Encounter Details Date Type Department Care Team (Late st Contact Info) Description 08/17/2024 Telephone [facility] - [facility] [address] [facility] [address] [place] [phone] Luis Alberto Marte NP [address] [place], [place] [phone] Prior Auth (Repatha) Social History Tobacco Use Types Packs/Day Years [...] as of this encounter Progress Notes * Phuong Arguello - 08/17/2024 4:48 PM EST Images from the original note were not included. evolocumab (Repatha Syringe) 140 mg/mL syringe -APPROVED Reference Number: [id number] Authorized from August 17, 2024 to June 15, 2025 * Phuong Arguello - 08/17/2024 4:37 PM EST Images from the original note were not included. evolocumab (Repatha Syringe) 140 mg/mL syringe -submitted through [facility] * Luis Alberto Marte NP - 08/17/2024 3:48 PM EST Completed. * Phuong Arguello - 08/17/2024 3:35 PM EST Please complete the note for 08/13/24. I can not complete her prior auth without it. Thank you documented in this encounter Plan of Treatment Upcoming Encounters Date Type Department Care Team (Late st Contact Info) Description 08/31/2024 10:00 AM EDT Ancillary Procedure [facility] Cardiology [facility] - [facility] [address] [facility] [address] [place] [address] 09/24/2024 11:00 AM EDT Office Visit Adult Medicine [address] [phone] Daniel Yoon MD [address] [place] [address] 11/30/2024 2:40 PM EDT Office Visit [facility] Cardiology [facility] - [facility] [address] [facility] [address] [place] [phone] Luis Alberto Marte NP [address] [place] [address] documented as of this encounter Visit Diagnoses Not on filedocumented in this encounter Care Teams Sustainability Consultant Relationship Specialty Start Date End Date Daniel Yoon MD [address] [place] [address] PCP - General Internal Medicine 04/30/24 documented as of this encounter
== END 2024-08-24 11:32 | disposition home or self-care (01) ==
LOC: HO.HPS 11:01
PROVIDERS: PCP Internal Medicine; Visit Provider Hospitalist
DX: J47.9 Bronchiectasis, uncomplicated (principal); R91.8 Other nonspecific abnormal finding of lung field; J41.1 Mucopurulent chronic bronchitis; A31.0 Pulmonary mycobacterial infection; J98.8 Other specified respiratory disorders; B96.5 Pseudomonas (aeruginosa) (mallei) (pseudomallei) as the cause of diseases classified elsewhere; B44.9 Aspergillosis, unspecified
CPT/HCPCS: 99214; G2211

== ENCOUNTER → 2024-08-24 11:00 | Outpatient (BNVA) | payer MEDICARE, SELFPAY | PROVIDERS: PCP Internal Medicine; Visit Provider Hospitalist | DX: J47.9 Bronchiectasis, uncomplicated (principal); J41.1 Mucopurulent chronic bronchitis; J98.8 Other specified respiratory disorders; A31.0 Pulmonary mycobacterial infection; B96.5 Pseudomonas (aeruginosa) (mallei) (pseudomallei) as the cause of diseases classified elsewhere; B44.9 Aspergillosis, unspecified; R91.8 Other nonspecific abnormal finding of lung field | CPT/HCPCS: 99212 ==

== ENCOUNTER 2024-11-24 10:51 | Outpatient (AMB) | payer MEDICARE, SELFPAY ==
[2024-11-24 10:54] VITALS: BP 132/62; PULSE 72; O2SAT 97
--- NOTE | 2024-11-24 10:54 | MHC.OFFVIS ---
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 She has had bronchoscopies in the past with positive stenotrophomonas. She also has a cardiac condition including AFib a flutter. She had a prolonged hospitalization the summer was very sick. She started to feel better. She completed a Holter monitor. She is still having issues with reflux. She is maintaining a diet and taking medications to minimize the acid. The patient did have a CT scan of the chest March 16, 2019 that we personally. The pulmonary nodules appear to be stable. She does have some evidence of airspace disease in the bases bring up the question of micro aspirations into the lungs. This appears to be a little bit worse on the left side in the right with compared to previous. Therefore, we talked about the importance of micro aspirations and minimizing the apparent we can consider promotility agents including Reglan, azithromycin and temporary done. However, domperidone and azithromycin do cause QT prolongation with the dangers with her sotalol. Right now Reglan is an option but will hold off at this time since she is doing well. We did review her CT scan of the chest demonstrating interval improvement her pulmonary nodules. She still has bronchiectatic changes and bronchitis looking airways, but, overall better. The right lower lobe has more dense airspace disease but that even looks improved when compared to her previous CAT scan from [facility]. She still waiting to get a portable oxygen concentrator. [facility]. 07/23/2023 the patient is here for a pulmonary follow-up visit. The patient is nervous about her CT scan results. I was able to give her reassuring news. The nodular density that was in the left upper lobe resolved after the 2 months' worth of voriconazole. Therefore, we can go ahead and have her stop the voriconazole. She will go back on the inhaled tobramycin and also on the rifampin. The patient has been a little more congested so I believe this will be helpful. She still has evidence of active mycobacterial disease so therefore she needs to stay on the therapy. She has bronchiectasis in the inhaled tobramycin is been very effective for. The patient has been complaining of this burning sensation in the chest. Sometimes he can be pretty severe. For some reason response to prednisone although is not really her breathing. I did provide her with gabapentin that she can use at nighttime to help her with neuropathic pain. The patient also needs to follow-up with cardiology to make sure that she does not have active cardiac issue going on. She continues use oxygen with good effect. The patient also continues with the current respiratory therapy. Overall she is doing better. However, she does have significant comorbidities with extensive emphysema. Will continue monitoring him closely. 09/25/2023 the patient is here for a pulmonary follow-up visit. The patient recently was at the [facility] where she was admitted with pneumonia. She was having the burning sensation in the chest. Seems to happen when she started to get more congested sickly. Therefore likely a sign of airway burden and mucus plugging. She was given vancomycin and also cefepime in the hospital. Shunt she was discharged on Levaquin which she did take for 3 days although she needs to be very careful with QT. the patient does take sotalol. Did helping her burning sensation in the chest did improve on that therapy. Now she is at home she is off the prednisone. We did talk about a small dose of prednisone although she has osteoporosis and therefore risk for having further bone injury and fractures. Therefore I will give her some prednisone but not to take it right now unless she gets sick she can do short burst low dose. In addition to that the patient has been back on the inhaled tobramycin. This will help decrease some of the organisms from her lungs. Will go ahead and start her on a small dose of doxycycline in order to treat for Staph related chinstrap related infections. The patient has had significant probably microbial infection. And also from the Modic standpoint the patient unfortunately has not been able to use the macrolide therapy because of the sotalol. Although she is seen by new behavioral instructor and is felt that maybe she can come off the sotalol so therefore if that is the case we can start her on azithromycin. I will reach out to her new behavioral instructor to try a figure out how we can go about the change. She continues use the oxygen with good therapy. 11/06/2023 the patient is here for a pulmonary follow-up visit. Overall she is feeling better. Her burning chest sensation has improved. The patient is still having to use her oxygen more regularly. She is tolerating the doxycycline daily. She has also taking the rifampin. In addition to that she has been taking the inhaled tobramycin 28 days on 20 days off. The days that she is not using the inhaled tobramycin she started getting little bit more secretion although still clear or light in color. We again talked about the azithromycin. Currently she is still on sotalol. Her behavioral instructor did mention the possibility of her coming off sotalol. But at this point since she is doing well from the doxycycline and we already treating all the organisms with current medication regimen best just to stay on when she is on right now specially with a very complicated medical issues. The patient did have an incident here in the office where she tripped and her oxygen concentrator fell landing on the cannula receptor and breaking. Therefore she will reach out to [facility] and will try to get that fixed. We did review her PFTs. There just a little bit over a year. I do believe that she should start participating in pulmonary rehabilitation specially now with the heated humidity will be hard for her to be outside. The patient is willing to start this at this time although she is concerned about her stamina. 12/30/2023 the patient is here for a pulmonary follow-up visit. The patient is starting to feel little bit better today. She has also been participating in pulmonary rehabilitation which is been helpful for her. She still has significant chest congestion. She does respond well to the inhaled BALBINA although it does irritate her lungs and constant chest tightness. When she is on the inhaled BALBINA she typically has less congestion. Currently she is on doxycycline treating her empirically for stenotrophomonas. The patient also had been treated for Aspergillus and also achromobacter previously. She is doing better from that standpoint. She does need a CT scan of the chest to address the previous findings. Her last CT scan was back in 10/04/2023. She does continue to use her oxygen good effect. She does have a portable oxygen concentrator the seems to be more portable for her. The patient returns 6 weeks. At that point will decide if she is going to continue the doxycycline. Also to note her mycobacterial cultures have been negative the last few times that they were checked. This is reassuring. Consider stopping the rifampin as well. Probably stop 1 medication at a time in view of her significant comorbidities. 02/12/2024 the patient is here for a pulmonary follow-up visit. Overall the patient has been a little bit more stable on the current medication regimen. She does respond well to the doxycycline. She was supposed to stop but she is concerned about stopping it based on the fact that she has been feeling well and does not want to go backwards. She has also been on inhaled tobramycin she is tolerating that. And she continues on the rifampin. I do believe that she should continue the doxycycline for now specially since her respiratory exam she still congested and now she is off the BALBINA. However, we did talk that when she is back on the BALBINA she can try to decrease it down to 3 times a week. In the meantime she continues with the neb treatments 3 times a day and also continues chest PT as she has the percussion vest and she also has the flutter valve. The patient also has been using her oxygen with good effect. She continues use it continuously. The patient follow-up in 3-4 months. If she has any worsening issues she will call for an earlier assessment. 05/19/2024 the patient is here for a pulmonary follow-up visit. The patient overall has been feeling better now. She was taken required a course of Vantin. After she did have worsening symptoms and she call the office and we just had her hold off for the weekend to see if she will recover by itself. She did feel better and did not need any additional antibiotics which is reassuring. The patient had recently started the inhaled tobramycin. She is tolerating it although it does cause some irritation to the throat and increased coughing and she also has a little more bronchospasms with. She knows to use her albuterol little bit more often to try to minimize on the adverse effects of the BALBINA. The patient does have issues with dysmotility. She does respond well to Reglan. I do think the Reglan will be a good option for her she can use as needed as long as she can monitor closely for any tremors where she would have to quickly stopped the medicine because it can result in irreversible tremors. She continues with other medications as prescribed in her respiratory therapy. She continues use the oxygen with good effect. She is going to the [facility] and she is exercising. She is using her oxygen 3 L pulse with exercising sometimes she is not able to go as fast as she used to before. She can always consider bringing larger tank in running continuous although it is hard for her to carry. Therefore she will continue with what she is doing right now will follow-up in 2-3 months. If she has any issues prior to that she will call for an earlier assessment. 08/24/2024 the patient is here for pulmonary follow-up visit. Overall she has been doing well. The doxycycline 3 times a week up ineffective. She also continues with BALBINA 28 days on 20 days off in the rifampin as well. This therapies have been able to keep her secretions under control and respiratory status stable. She still also during the percussion vest and the Acapella valve for CPT. The patient did go to the beach over the winter and she had a great time she has has another trip planned for the summer. I did tell her to call [facility] to see about getting a concentrator delivered. And she also needs to take all her supplies with her. For now we are not going to make any changes with her medications but in the fall will talk about potentially deescalating some of her medications including rifampin. If she has any issues prior to that she will call for an earlier assessment. 11/24/2024 the patient is here for pulmonary follow-up visit. Overall the patient has been doing well. She continues a very aggressive respiratory regimen treating both the non tuberculosis mycobacterial infections, her stenotrophomonas history and Pseudomonas history as well. Seems like the medications are keeping her at [place]. Her mucus production is decreased. The patient does have nasal congestion at times in likely component of vaso motor rhinitis. Will go ahead and prescribe some nasal sprays for her. In the meantime she does complaint of the inhaled tobramycin causes her to have significant chest tightness and wheezing. She can go ahead and decrease it to once a day when she is doing him just to see if she gets any relief. If she starts developing worsening chest congestion though she will have to increase it we have to kind of work around the adverse effects of the medication. The patient will get an x-ray before the next visit she will continue to use her oxygen as prescribed as it has been very affecting beneficial. Will follow-up in 3-4 months. If she has any issues before that she will call for an earlier assessment. 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 Pulmonary nodules COPD (chronic obstructive pulmonary disease) Bronchiectasis Surgical History Hx of colonoscopy History of bronchoscopy History of appendectomy Social History Household Members: Other Household Members Other:: alone [facility]: [facility] Are you a primary child care provider to a significant other at home: No Do you presently have visiting nurse or other home services: No Unable to assess alcohol history related to: Unknown Alcohol intake: never Patient Tobacco Use Status: Former Tobacco user Tobacco use type: Cigarette Years Smoked: 35 Second Hand Smoke Exposure: No Advance Directives Date on File: 01/31/22 service: No Current occupational status: retired Review of Systems Const Denies fever(s), Denies malaise, Denies night sweats, Reports poor appetite and Reports weight loss ENT Denies change in voice, Denies lip swelling, Denies mouth pain, Reports nasal congestion, Reports nasal discharge and Denies tongue swelling Card Denies chest pain and Reports dyspnea on exertion Resp Denies chest congestion, Reports cough, Denies hemoptysis, Reports dyspnea on exertion and Reports wheezing GI Denies abdominal pain and Reports nausea Musc Denies no additional complaints Neuro Denies Neuro-related abnormal movements Psych Denies no additional complaints Sherwin/Lymph Denies easy bleeding and Denies lymphadenopathy Aller/Immun Denies lip swelling, Denies tongue swelling and Reports wheezing Physical Exam Vital Signs: Last Vital Signs Pulse 72 11/24/24 10:54 BP 132/62 11/24/24 10:54 Pulse Ox 97 11/24/24 10:54 Oxygen Delivery Method Nasal Cannula 11/24/24 10:54 Oxygen Flow Rate 2 11/24/24 10:54 BMI result Body Mass Index 20.0 Last Vital Signs Temp 98.1 F 11/14/22 12:00 Pulse 87 11/14/22 12:00 Resp 19 11/14/22 12:00 BP 126/61 11/14/22 12:00 Pulse Ox 95 11/14/22 12:00 O2 Del Method Nasal Cannula 11/14/22 12:00 O2 Flow Rate 2 11/14/22 08:00 Oxygen Flow Rate 4 11/11/22 14:50 BMI result Body Mass Index 23.2 Const General: alert HEENT Head: Yes normocephalic Neck Neck: Yes normal visual inspection, Yes full ROM and Yes no lymphadenopathy Chest Chest palpation & inspection: normal inspection of the chest Resp Effort & Inspection: normal respiratory effort and prolonged expiratory phase Auscultation: no crackles, no rhonchi and diminished lung sounds Cardio Rate: regular rate Rhythm: regular rhythm Heart sounds: S1 normal heart sound present and S2 normal heart sound present GI Palpation (GI): Soft to palpation Auscultation: normal bowel sounds Skin General skin exam: no rashes or lesions noted Extrem General: Yes no clubbing, cyanosis or edema Assessment & Plan Assessment & Plan (1) Bronchiectasis: Code(s): J47.9 - Bronchiectasis, uncomplicated Category: Medical Qualifiers: Bronchiectasis type: uncomplicated Qualified Code(s): J47.9 - Bronchiectasis, uncomplicated (2) Pulmonary nodules: Comment: Code(s): R91.8 - Other nonspecific abnormal finding of lung field Category: Medical (3) COPD (chronic obstructive pulmonary disease): Code(s): J44.9 - Chronic obstructive pulmonary disease, unspecified Category: Medical Qualifiers: COPD type: chronic bronchitis Chronic bronchitis type: mucopurulent Qualified Code(s): J41.1 - Mucopurulent chronic bronchitis (4) Nontuberculous mycobacterial disease of lung: Code(s): A31.0 - Pulmonary mycobacterial infection Category: Medical (5) Pseudomonas respiratory infection: Code(s): J98.8 - Other specified respiratory disorders; B96.5 - Pseudomonas (aeruginosa) (mallei) (pseudomallei) as the cause of diseases classified elsewhere Category: Medical (6) Aspergilloma: Comment: resolved on CT chest 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 - Aspergillosis, unspecified Category: Medical Plan Continue Balbina 28 days on, 28 days off continue Rifampin MWF, consider stopping next in the Fall continue Doxycycline MWF continue Advair/Spiriva Gabapentin 200mg qHS ROBERT as needed continue budesonide oxygen with activity and sleep reglan BID as needed for nausea continue CPT continue Pulmonary exercise F/U 3-4 months Medications: New fluticasone propionate 50 mcg/actuation 2 sprays intranasal DAILY 15.8 mL 11RF 30 days J31.0 - Chronic rhinitis ipratropium bromide administer into each nostril 2 sprays intranasal TID PRN 15 mL 6RF allergy symptoms Coding Level of Care Code Est Pt Level 4 (42684) Complex EM visit Add On G2211 Diagnoses Bronchiectasis without complication J47.9 Bronchiectasis type: uncomplicated Pulmonary nodules R91.8 Mucopurulent chronic bronchitis J41.1 COPD type: chronic bronchitis Chronic bronchitis type: mucopurulent Nontuberculous mycobacterial disease of lung A31.0 Pseudomonas respiratory infection J98.8; B96.5 Aspergilloma B44.9 Time Spent (min) 17
--- OUTSIDE RECORDS SUMMARY | 2024-11-24 12:20 | XMS_ITS | Encounter Summary ---
Author Organization [facility] Address [address] [place] [address] Care Team Providers Care Music Executive Name Role Phone Tricia Wilkerson DO Primary Care Pro vider Unavailable Rainer Rodarte MD Unavailable [phone] Padmini Lozada NP Unavailable [phone] Armen Haynes DO Primary Care Provider Theresa vailable Daniel Yoon MD Primary Care Provider [phone] Daniel Yoon MD Primary Care Provider [phone] Gisele Valdez DNP Unavailable [phone] Mary Anne Vargas MD Unavailable [phone] Encounter Details Date Type Department Care Team Description 02/13/2015 Business Doc Medical Records [address] [place] [id number] Abstract, Provider Social History Tobacco Use Types Packs/Day Years Used Date Smoking Tobacco: Former Smokeless Tobacco: Never Alcohol Use Standard Drinks/Week Comments Not Asked 0 (1 standard drink = 0.6 oz pur e alcohol) Physical Activity Answer Date Recorded On average, how many days pe r week do you engage in moderate to strenuous exercise (like walking fast, running, jogging, dancing, swimming, biking, or other activities that cause a light or heavy sweat)? 0 days 08/24/2020 On average, how many minutes do you engage in exercise at this level? Not asked Sex Assigned at Date Recorded Not on file Job Start Date Occupation Industry Not on file Not on file Not on file documented as of this encounter Plan of Treatment Not on file documented as of this encounter Visit Diagnoses Not on filedocumented in this encounter Care Teams Music Executive Relationship Specialty Start Date End Date Tricia Wilkerson DO PCP - General Internal Medicine 10/25/14 11/20/20 Armen Haynes DO [address] [place] [address] PCP - General Internal Medicine 11/21/20 04/12/21 Daniel Yoon MD [address] [place] [id number] PCP - General Internal Medicine 04/13/21 01/08/22 Daniel Yoon MD [address] [place] [id number] PCP - General Internal Medicine 01/09/22 Rainer Rodarte MD [address] [place] [address] Specialist Cardiovascular Disease 08/03/20 12/18/23 Padmini Lozada NP [address] [place] [address] Cardiology 08/03/20 12/18/23 Gisele Valdez DNP [address] [place] [id number] Specialist Nurse Practitioner Family 12/19/23 Mary Anne Vargas MD [address] [place] [id number] Specialist Cardiology 12/19/23 documented as of this encounter
== END 2024-11-24 11:34 | disposition home or self-care (01) ==
LOC: HO.HPS 10:51
PROVIDERS: PCP Internal Medicine; Visit Provider Hospitalist
DX: J47.9 Bronchiectasis, uncomplicated (principal); R91.8 Other nonspecific abnormal finding of lung field; J41.1 Mucopurulent chronic bronchitis; A31.0 Pulmonary mycobacterial infection; J98.8 Other specified respiratory disorders; B96.5 Pseudomonas (aeruginosa) (mallei) (pseudomallei) as the cause of diseases classified elsewhere; B44.9 Aspergillosis, unspecified
CPT/HCPCS: 99214; G2211

== ENCOUNTER → 2024-11-24 10:51 | Outpatient (BNVA) | payer MEDICARE, SELFPAY | PROVIDERS: PCP Internal Medicine; Visit Provider Hospitalist | DX: J47.9 Bronchiectasis, uncomplicated (principal); J41.1 Mucopurulent chronic bronchitis; J98.8 Other specified respiratory disorders; R91.8 Other nonspecific abnormal finding of lung field; A31.0 Pulmonary mycobacterial infection; B96.5 Pseudomonas (aeruginosa) (mallei) (pseudomallei) as the cause of diseases classified elsewhere; B44.9 Aspergillosis, unspecified | CPT/HCPCS: 99212 ==

== ENCOUNTER 2025-02-22 11:48 | Outpatient (REF) | payer MEDICARE, SELFPAY ==
--- NOTE | ~2025-02-22 | XR_ITS ---
EXAMINATION: XR CHEST 2 VIEWS HISTORY: R05.9 - Cough, unspecified COMPARISON: Comparison is made with the prior examination dated 04/15/2024. FINDINGS: PA and lateral views of the chest are submitted. The lungs are hyperinflated, consistent with COPD. There is scarring at the lung bases. No new focal airspace opacity is identified. There is no pleural effusion, pneumothorax, or pulmonary vascular congestion. The heart is normal in size. The aorta is calcified. There is degenerative disc disease of the spine XR/XR chest 2V IMPRESSION: COPD. No acute cardiopulmonary abnormality. Electronically signed by: Armen Torre MD 02/22/2025 12:20 PM EDT
--- OUTSIDE RECORDS SUMMARY | 2025-02-22 14:18 | XMS_ITS | Clinical Summary ---
Author Organization [facility] Address [address] [place] [address] Care Team Providers Care Plycor Operator Name Role Phone Daniel Yoon MD Primary Care Provider [phone] Allergies No known active allergies Medications Medication [...] - Tdap) 05/16/2022 05/15/2022 Influenza Vaccine (#1) 2025 , 03/06/2018, 02/28/2017, Additional history exists Pneumococcal Vaccine Completed 05/03/2015, 04/14/2013, 05/20/2006 Hepatitis B Vaccines Aged Out No long er eligible based on patient's age to complete this topic RSV Ped < 20 months Aged Out No longe r eligible based on patient's age to complete this topic Care Teams Plycor Operator Relationship Specialty Start Date End Date Daniel Yoon MD PCP - General Internal Medicine 04/03/22
--- OUTSIDE RECORDS SUMMARY | 2025-02-22 14:18 | XMS_ITS | Clinical Summary ---
Author Organization Patient Business Ser vice Formerly [facility] Address [address] [place] [address] Care Team Providers Care Anode Adjuster Name Role Phone Daniel Yoon MD Primary Care Provider [phone] Allergies No known active allergies Medications glucosamine/zabrina kaela kennedy A/C/Mn (GLUCOSAMINE-CHO NDROIT-VIT C-MN ORAL) Take 1 Cap by mouth 2 times daily. Active guaifenesin (MUCINEX ORAL) if needed. Acti ve magnesium oxide 400 mg magnesium capsule Take 1 Cap by mouth daily. Active medical supply, miscellaneous (MISCELLANEOUS MEDICAL SUPPLY MISC) ACAPELLA 1 Device by Does not apply route 4 times daily for 30 days. 07/23/19 19 Active vit C/E/Zn/coppr/lut ein/zeaxan (PRESERVISION AREDS-2 ORAL) Take 1 Cap by [...] FOR COUGH OR WHEEZING. 11/13/19 19 Active calcium carbonate-vitami n D3 600 mg-5 mcg (200 unit) per tablet Take 1 Tablet by mouth 2 times daily. Active cholecalciferol (VITAMIN D-3) 25 mcg (1,000 unit) capsule Take 1 Cap by mouth daily. Active fluticasone-umec lidinium-vilante rol (Trelegy Ellipta) 200-62.5-25 mcg inhaler 02/08/20 23 Active ipratropium-albu teroL (DUONEB) 0.5-2.5 mg/3 mL nebulizer solution Inhale 3 mL into the lungs 4 times daily. 01/25/20 20 Active melatonin 3 mg tablet Take 1 Tab by mouth at bedtime. Active potassium chloride 20 mEq tablet extended [...] (one) time each day. 04/12/20 24 Active alendronate (FOSAMAX) 70 mg tablet Take 1 tablet (70 mg total) by mouth every 7 (seven) days. Take in the morning with a full glass of water, on an empty stomach, and do not take anything else by mouth or lie down for the next 30 min. 12 tablet 2 09/25/19 25 Active sotaloL (BETAPACE) 80 mg tablet TAKE 1 TABLET BY MOUTH EVERY 12 HOURS 180 tablet 3 10/29/19 25 Active ezetimibe (ZETIA) 10 mg tablet TAKE 1 TABLET BY MOUTH DAILY 90 tablet 3 10/29/19 25 Active omeprazole (PriLOSEC) [address] capsule Take 1 capsule (20 mg total) by mouth 2 (two) times a day. 180 capsule 3 11/23/19 25 Active Repatha SureClick 140 mg/mL pen injector injection INJECT 1 PEN SUBCUTANEOUSLY EVERY 2 WEEKS 6 mL 3 11/23/19 25 Active Eliquis 5 mg tablet TAKE 1 TABLET BY MOUTH TWICE DAILY 180 tablet 3 12/28/19 25 Active LORazepam (ATIVAN) 0.5 mg tablet Take 1 tablet (0.5 mg total) by mouth at bedtime as needed for anxiety. 28 tablet 02/01/20 25 Active zolpidem (AMBIEN) 5 mg tablet Take 1 tablet (5 mg total) by mouth at bedtime as needed for sleep. for insomnia Max Daily Amount: 5 mg 28 tablet 02/01/20 25 Active LORazepam (ATIVAN) 0.5 mg tablet Take 1 tablet (0.5 mg total) by mouth at bedtime as needed for anxiety. 28 tablet 12/01/19 25 025 Discontin ued(Reord er) zolpidem (AMBIEN) 5 mg tablet Take 1 tablet (5 mg total) by mouth at bedtime as needed for sleep. for insomnia Max Daily Amount: 5 mg 28 tablet 12/01/19 25 025 Discontin ued(Reord er) Active Problems Problem Noted Date Diagnosed Date Murmur, cardiac 11/30/2024 Assessment & Plan (11/30/2024 3:19 PM EDT): The patient has cardiac murmur on exam. Sounds mild. Sounds like a mitral regurgitation. I am going to update an echocardiogram. COPD (chronic obstructive pu lmonary disease) ([facility] V24, [facility] V28) 04/23/2024 Overview (04/23/2024): Follows with [facility] Pulm. Assessment & Plan (09/24/2024 11:51 AM EDT): Atypical chest pain 08/13/2023 Overview (04/23/2024): Last [...] with this plan as well. CHEMO (mycobacterium avium-int racellulare) infection ([facility] V24, [facility] V28) 10/01/2022 Assessment & Plan (09/24/2024 11:51 AM EDT): Carotid artery disease ([facility] V24) 08/24/2020 Overview (04/23/2024): Last Assessment & Plan: Surveillance carotid ultrasound performed today. Pending results. I will follow- up on these results and get back to the patient. It is asymptomatic. Assessment & Plan (11/30/2024 3:17 PM EDT): Patient had updated carotid ultrasound. We were able to go over the results. Less than 50% stenosis in both left and right ICA. Gross hematuria 09/15/2017 Atrial flutter ([facility] V24, [facility] V28) 2016 Overview (05/07/2024): - Met Dr. Rodarte of [...] Rodarte's note from 2018 (not scanned into [facility]) - She even had a 30-day R [...] because of QT prolongation Assessment & Plan (11/30/2024 3:17 PM EDT): Patient is on sotalol for a flutter. Also utilizing Eliquis for CVA prophylaxis. Patient denies any abnormal bleeding. Should remain anticoagulated due to elevated CHADS2 Vascor for age/sex/hypertension. 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 Colon polyp 03/15/2015 Diverticulitis 03/15/2015 GERD (gastroesophageal reflux disease) 5 Glaucoma 03/15/2015 Hyperlipidemia 03/15/2015 Assessment & Plan (09/24/2024 11:51 AM EDT): Assessment & Plan (08/17/2024 3:46 PM EST): [...] secondary prevention. Hypertension 03/15/2015 Assessment & Plan (11/30/2024 3:18 PM EDT): Well-controlled. Patient reports blood pressure measurements at home tend to be systolically in the 110s diastolically in the 70s. Educated on the importance of diet lifestyle to help further assist in reducing blood pressure. The patient was encouraged to follow low-salt low-fat diet, make purposeful strides towards weight loss, and engage in routine aerobic exercise as tolerated. Assessment & Plan (09/24/2024 11:51 AM EDT): Assessment & Plan (08/17/2024 3:46 PM EST): [...] hip fracture over the next 10 years. Assessment & Plan (09/24/2024 11:51 AM EDT): Orders: BD Bone Density DXA Axial Skeleton; Future Encounters Date Type Department Care Team Description 02/09/2025 1:28 PM EDT - 02/09/2025 11:59 PM EDT [facility] [address] [address] Encounter for screening mammogram for malignant neoplasm of breast Discharge Disposition: Home or Self Care 11/30/2024 2:40 PM EDT Office Visit [facility] - [address] [facility] [address] [place] [address] Luis Alberto Marte NP Paroxysmal A-fib ([facility] V24, [facility] V28) (Primary Dx); Atrial flutter, unspecified type ([facility] V24, [facility] V28); Atypical chest pain; Carotid artery disease, unspecified laterality, unspecified type ([facility] V24); Pure hypertriglyceridemia ; Primary hypertension; Murmur, cardiac from Last 3 Months Immunizations Name Administration [...] Date Site/Laterality Comments APPENDECTOMY PROCEDURE:APPENDECTOMY APPENDECTOMY PROCEDURE: CT APPENDECTOMY TONSILLECTOMY PROCEDURE: HISTORICAL TONSILLECTOMY Medical History Medical History Date Comments Asthma DX:Asthma COPD (chronic obstructive pu lmonary disease) ([facility] V24, [facility] V28) DX:COPD (chronic o bstructive pulmonary disease) ([facility]) High blood pressure DX:High bloo d pressure Osteoporosis DX:Osteoporosis GERD (gastroesophageal reflux disease) DX:GERD (gastroesophageal reflux disease) COPD (chronic obstructive pu lmonary disease) ([facility] V24, [facility] V28) DX:COPD (chronic o bstructive pulmonary disease) ([facility]); COMMENT: dr mehta History of tobacco abuse DX:Hist ory of tobacco abuse; COMMENT: 35 pk yrs Glaucoma 03/15/2015 DX:Glaucoma Hyperlipidemia 03/15/2015 DX:Hyperlipidemi a GERD (gastroesophageal reflux disease) 03/15/2015 DX:GERD (gastroesophageal reflux disease) Hypertension 03/15/2015 DX:Hypertension Diverticulitis 03/15/2015 DX:Diverticuliti s Onychomycosis 03/15/2015 DX:Onychomycosis Colon polyp 03/15/2015 DX:Colon polyp Anxiety 07/30/2016 DX:Anxiety Atrial flutter ([facility] V24, [facility] V28) 06/11/2017 DX:Atrial flutter ([facility]); COM MENT: On sotalol and eliquis; s/p abalation in 2015; follow reg with cards 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 of flyin g Gross hematuria 09/15/2017 DX:Gross hematur ia Osteopenia 03/15/2015 DX:Osteopenia Pulmonary nodule 04/09/2016 DX:Pulmonary no dule Thyroid nodule 12/2018 DX:Thyroid nodul e; COMMENT: 3 mm benign features Carotid stenosis, bilateral DX:C arotid stenosis, bilateral CHEMO (mycobacterium avium-intracellulare) infection ([facility] V24, [facility] V28) 10/01/2022 DX:CHEMO (mycobacterium avium-intracellulare) infection ([facility]) Family History Medical History Relation Name Comments [...] = 0.6 oz pur e alcohol) rarely Housing Instability Answer Date Recorde d Are you worried that in the next 2 months you may not have stable housing? No 09/17/2024 Food Access & Nutrition Answer Date Rec orded Do you have access to a vari ety of food including fruits and vegetables? Yes 09/17/2024 Access to Healthcare Answer Date Record ed Within the last 3 months, ho w many times did you visit the emergency department for your medical care? 0 09/17/2024 Health Literacy Answer Date Recorded How often do you need to hav e someone help you when you read instructions, pamphlets, or other written material from your doctor or pharmacy? Never 09/17/2024 Caregiver: How often do you need to have someone help you when you read instructions, pamphlets, or other written material from your doctor or pharmacy? Not on file 09/17/2024 Financial Risk Answer Date Recorded How hard is it for you to pa y for the very basics like food, housing, medical care, and air conditioning / heating? Not very hard 09/17/2024 Transportation Answer Date Recorded Has the lack of transportati on kept you from meetings, work, or from getting things needed for daily living? No Has the lack of transportati on kept you from medical appointments or from getting medications? No 09/17/2024 Social Isolation Answer Date Recorded How often do you feel lonely or isolated from th ose around you? Rarely 09/17/2024 Food Risk Answer Date Recorded Within the past 12 months we worried whether our food would run out before we got money to buy more. Never true 09/17/2024 Within the past 12 months th e food we bought just didn't last and we didn't have money to get more. Never true 09/17/2024 Dependent Care Answer Date Recorded Do you need help finding or paying for care for your loved ones. For example, child and family services specialist or elderly care for an older adult? No 09/17/2024 Education Answer Date Recorded Do you think completing more education or training, like finishing a GED, going to college, or learning a trade, would be helpful for you? No 09/17/2024 Employment and Income Answer Date Recor ded During the last four weeks, have you been actively looking for work? No 09/17/2024 Living Situation Answer Date Recorded What is your living situation? 0 09/17/2024 Comments No Sex and Gender Information Value Date Recorded Sex Assigned at Female 12/23/2021 7:21 PM EDT Legal Sex Female 7:10 AM EST Gender Identity Female 12/23/2021 7:21 PM EDT Sexual Orientation Straight 02/02/2025 3: 10 PM EDT Obstetrics History Para Term AB IAB SAB Ectopic Multiple Livin g Live Births 2 Last Filed Vital Signs Vital Sign Reading Time Taken Comments Blood Pressure 140/72 11/30/2024 2:40 PM EDT Pulse 93 11/30/2024 2:40 PM EDT Temperature 36.7 C (98 F) 09/24/2024 11:05 AM EDT Respiratory Rate 16 09/24/2024 11:05 AM EDT Oxygen Saturation 92% 11/30/2024 2:40 PM EDT Inhaled Oxygen Concentration - - Weight 55.3 kg (122 lb) 02/09/2025 1:38 PM EDT Height 167.6 cm (5' 6 ) 02/09/2025 1:38 PM EDT Body Mass Index 19.69 02/09/2025 1:38 PM EDT Plan of Treatment Upcoming Encounters Date Type Department Care Team (Late st Contact Info) Description 03/11/2025 11:30 AM EDT Ancillary Procedure [facility] - [facility] [address] [facility] [address] [place] [address] 04/08/2025 1:15 PM EDT Office Visit Adult Medicine [facility] - [address] [phone] Daniel Yoon MD [address] [place], [place] 04/11/2025 10:45 AM EDT Appointment Bone Density - [address] [phone] 04/19/2025 3:20 PM EST Consult Gastroenterology - [address] [facility] [address] [place] [id number] Fide Laguerre MD [address] [place] [id number] Health Maintenance Due Date Last Done Comments IPV Vaccines (2 of 3 - Adult catch-up series) 06/23/2008 05/26/2008 Zoster Vaccines (2 of 3) 04/04/2009 02/07/2009 COVID-19 Vaccine ( season) 2025 03/26/2024, 04/07/2023, 03/29/2022, Additional history exists Influenza Vaccine (#1) 2025 , 04/02/2023, 04/01/2022, Additional history exists Social Influencers of Health Screening 09/17/2025 09/17/2024 Falls Risk Assessment 09/24/2025 09/24/2024, 023 Medicare Annual Wellness Visit 09/24/2025 09/24/2024 Hypertension/CHF/CAD Annual BMP Blood Test 01/04/2026 01/04/2025, 08/24/2024, 04/22/2024, Additional history exists Cholesterol Screening (Lipid Panel) 04/22/2029 04/22/2024, 02/09/2024, 12/19/2023 Osteoporosis Screening (Bone Density Screening) 06/12/2032 06/12/2022, 03/10/2018 DTaP,Tdap,and Td Vaccines (3 - Td or Tdap) 08/25/2034 08/25/2024, 05/15/2022 Pneumococcal Vaccine: 50+ Years Completed 01/22/2023, 05/03/2015, 04/14/2013, Additional history exists RSV Immunization Adult Patients Completed 04/02/2023 Depression Screening Completed 09/17/2024 HIB Vaccines Aged Out No longer eligi [...] age to complete this topic Meningococcal B Vaccine Aged Out No l onger eligible based on patient's age to complete this topic RSV Immunization Patients Under 20 months Aged Out No longer eligible based on patient's age to complete this topic Varicella Vaccines Aged Out No longer eligible based on patient's age to complete this topic Procedures Procedure Name Priority Date/Time Associated Diagnosis Comments MG MAMMO DIGITAL SCREENING W BRAYAN BILAT Routine 02/09/2025 1:54 PM EDT Encounter for screening mammogram for malignant neoplasm of breast BASIC METABOLIC PANEL Routine 01/04/2025 10:22 AM EDT Primary hypertension ECG 12-LEAD Routine 11/30/2024 3:20 PM EDT Paroxysmal A-fib (CMS/HCC V24, CMS/HCC V28) LIPID PANEL WITH REFLEX TO DIRECT LDL Routine 04/22/2024 8:08 AM EST Routine medical exam HM FALLS RISK ASSESSMENT Routine 05/16/2023 DXA BONE DENSITY STUDY 1+ SITS AXIAL SKEL Routine 06/12/2022 11:15 AM EST Other specified disorders of bone density and structure, unspecified site Encounter for screening for osteoporosis from Last 3 Months or Most Recently Relevant to Health Maintenance Results * MG Mammo Digital Screening w Brayan bilat (02/09/2025 1:54 PM EDT) Anatomical Region Laterality Modality Breast Bilateral Mammography 02/09/2025 3:05 PM EDT Impressions 02/09/2025 3:12 PM EDT No mammographic evidence of malignancy. No suspicious interval change. A negative mammogram in the presence of a clinically suspicious palpable abnormality does not preclude the possibility of malignancy or alter the indications for biopsy. ASSESSMENT: BI-RADS 1: NEGATIVE RECOMMENDATION(S): 1: Routine screening mammogram BILATERAL in 1 year. [facility] location[facility] [address], [address] -------- FINAL REPORT -------- Dictated By: Erich Sheehan Dictated Date: 02/09/2025 15:05 ET Assigned Physician: Erich Sheehan Reviewed and Electronically Signed By: Erich Sheehan Signed Date: 02/09/2025 15:12 ET Workstation ID: [id number] Transcribed By: Self Edit Transcribed Date: 02/09/2025 15:05 ET Narrative 02/09/2025 3:12 PM EDT EXAM: SCREENING MAMMOGRAPHY, BILATERAL HISTORY: SCREENING. No additional history. COMPARISON: 08/04/23, 06/19/22, 06/19/21, 02/27/21 TECHNIQUE: Synthesized CC and MLO projections of each breast. Tomosynthesis of each breast in the CC and MLO projections. ADDITIONAL IMAGING: None Computer-aided detection was employed with the Hover 3D AI 3-D. TISSUE DENSITY: There are scattered areas of fibroglandular density. (BI-RADS category B) FINDINGS: RIGHT BREAST: No suspicious mass. No suspicious calcification. No distortion. No additional suspicious right breast findings LEFT BREAST: No suspicious mass. No suspicious calcification. No distortion. No additional suspicious left breast findings Procedure Note Erich Sheehan MD - 02/09/2025 EXAM: SCREENING MAMMOGRAPHY, BILATERAL HISTORY: SCREENING. No additional history. COMPARISON: 08/04/23, 06/19/22, 06/19/21, 02/27/21 TECHNIQUE: Synthesized CC and MLO projections of each breast.Tomosynthesis of each breast in the CC and MLO projections. ADDITIONAL IMAGING: None Computer-aided detection was employed with the Hover 3D AI 3-D. TISSUE DENSITY: There are scattered areas of fibroglandular density.(BI-RADS category B) FINDINGS: RIGHT BREAST: No suspicious mass. No suspicious calcification. No distortion. Noadditional suspicious right breast findings LEFT BREAST: No suspicious mass. No suspicious calcification. No distortion. Noadditional suspicious left breast findings IMPRESSION: No mammographic evidence of malignancy. No suspicious interval change. A negative mammogram in the presence of a clinically suspicious palpableabnormality does not preclude the possibility of malignancy or alter theindications for biopsy. ASSESSMENT: BI-RADS 1: NEGATIVE RECOMMENDATION(S): 1: Routine screening mammogram BILATERAL in 1 year. [facility] location[facility] at [address], [address] -------- FINAL REPORT -------- Dictated By: Erich Sheehan Dictated Date: 02/09/2025 15:05 ET Assigned Physician: Erich Sheehan Reviewed and Electronically Signed By: Erich Sheehan Signed Date: 02/09/2025 15:12 ET Workstation ID: [id number] Transcribed By: Self Edit Transcribed Date: 02/09/2025 15:05 ET us Ami Fernandez DEGREE CLERK IMG BI PROCEDURES Final Resul t * Basic metabolic panel (01/04/2025 10:22 AM EDT) Sodium 135 133 - 145 mmol/L LAB CHEMISTRY METHOD 01/04/2025 1:57 PM [facility] Potassium 4.4 3.5 - 5.5 mmol/L LAB CHEMISTRY METHOD 01/04/2025 1:57 PM [facility] Chloride 101 96 - 110 mmol/L LAB CHEMISTRY METHOD 01/04/2025 1:57 PM [facility] CO2 27 21 - 32 mmol/L LAB CHEMISTRY METHOD 01/04/2025 1:57 PM [facility] Anion Gap 7 3 - 11 LAB CHEMISTRY METHOD 01/04/2025 1:57 PM [facility] Glucose 96 70 - 100 mg/dL LAB CHEMISTRY METHOD 01/04/2025 1:57 PM [facility] BUN 21 5 - 25 mg/dL LAB CHEMISTRY METHOD 01/04/2025 1:57 PM [facility] Creatinine 0.85 0.50 - 1.10 mg/dL LAB CHEMISTRY METHOD 01/04/2025 1:57 PM [facility] eGFR 68 >=60 mL/min/1. 73m2 LAB CHEMISTRY METHOD 01/04/2025 1:57 PM [facility] Comment:Calculation based on the Chronic Kidney Disease Epidemiology Collaboration (CKD-EPI) equation refit without adjustment for race. BUN/Creatinine Ratio 24.7 LAB CHEMISTRY METHOD 01/04/2025 1:57 PM [facility] Calcium 10.4 8.5 - 10.5 mg/dL LAB CHEMISTRY METHOD 01/04/2025 1:57 PM EDT [facility] Blood Venous blood specimen / Unknown Venipuncture / Unknown 01/04/2025 10:22 AM EDT 01/04/2025 10:22 AM EDT Luis Albetro Marte NP LAB BLOOD ORDERABLES Final Resul t Performing Organization Address City/[facility]/ZIP Co de Phone Number [facility] [address] [place] [address], [place] [phone] * ECG 12 lead (11/30/2024 3:20 PM EDT) Ventricular Rate ECG 93 BPM [facility] Atrial Rate 93 BPM GEM[facility] P-R Interval 232 ms GEMUSE QRS Duration 128 ms GEMUSE Q-T Interval 390 ms GEMUSE QTc 484 ms GEMUSE P Wave Atlas 90 degrees GEMUSE R Atlas 63 degrees GEMUSE T Atlas 79 degrees GEMUSE ECG Interpretation Sinus rhythm with 1st degree A-V block Left bundle branch block When compared with ECG of 13-AUG-2024 14:35, No significant change was found Confirmed by CATHY BEST ([id number]) on 12/22/2024 4:30:44 PM GEM[facility] 11/30/2024 2:48 PM EDT 12/22/2024 4:30 PM EDT Luis Alberto Marte NP ECG ORDERABLES Edited Result - Final Performing Organization Address [facility] Co de Phone Number GEMUSE * Lipid panel with reflex to direct LDL (04/22/2024 8:08 AM EST) Cholesterol 144 0 - 200 mg/dL LAB CHEMISTRY METHOD 04/22/2024 10:14 AM EST [facility] Triglycerides 101 0 - 150 mg/dL LAB CHEMISTRY METHOD 04/22/2024 10:14 AM EST [facility] HDL 68 >=40 mg/dL LAB CHEMISTRY METHOD 04/22/2024 10:14 AM EST [facility] LDL Calculated 56 0 - 100 mg/dL LAB CHEMISTRY METHOD 04/22/2024 10:14 AM EST [facility] VLDL Cholesterol Carlos 20.2 mg/dL LAB CHEMISTRY METHOD 04/22/2024 10:14 AM EST [facility] Non HDL Chol. (LDL+VLDL) 76 <145 mg/dL LAB CHEMISTRY METHOD 04/22/2024 10:14 AM EST [facility] Chol/HDL Ratio 2.1 0.0 - 4.4 LAB CHEMISTRY METHOD 04/22/2024 10:14 AM [facility] Blood Venous blood specimen / Unknown Venipuncture / Unknown 04/22/2024 8:08 AM EST 04/22/2024 8:08 AM EST Angélica WHITFIELD LAB BLOOD ORDERABLES Final Re sult [facility] [address] [place] [address], [place] [phone] * Falls Risk Assessment (05/16/2023) [facility] Falls Risk Assessment Abstracted [facility] Provider HEALTH MAINTENANCE Final Result * DXA BONE DENSITY STUDY 1+ SITS AXIAL SKEL (06/12/2022 11:15 AM EST) Anatomical Region Laterality Modality Bone Densitometr y 05/15/2022 9:44 AM EST Narrative 06/12/2022 1:29 PM EST BONE DENSITY (DEXA) Lumbar Spine T-score is [...] (World Health Organization Fracture Risk Assessment) [facility] Department of Internal Medicine recommends using National [...] alternative screening schedule based on canelo Ryder., BANNER July 04, 2011 for patients with osteopenia [...] (World Health Organization Fracture Risk Assessment) [facility] Department of Internal Medicine recommendsusing National Osteoporosis [...] FRAX. Optional alternative screening schedule based on bonilla Ryder al., NEJMJanuary 2011 for patients with osteopenia (based on hip BMD T-score) is as follows: * advanced osteopenia (T scores -2.00 to -2.49), BMD testing every year * moderate osteopenia (T scores -1.50 to -1.99), BMD testing every 5years mild osteopenia or normal BMD (T scores -1.50 and higher), BMD testingevery 15 years Ginger WHITFIELD [facility] DXA PROCEDURES Final Result from Last 3 Months or Most Recently Relevant to Health Maintenance Insurance MEDICARE [facility] Advance Directives Documents on File Type Date Recorded Patient Pharmacology Professor Expl anation Health Care Decision (hx) 08/22/2023 [...] Care Decision (hx) 10/29/2021 AD ORR DIRECTIVE * No CPR/Do Not Intubate (Latest Code Status on File) Date Activated Date Inactivated Comments 09/24/2024 11:37 AM This code sta tus was ascertained in the following way: Code status discussion: discussion with patient To update the patient's code status, place a code status order. Do not modify or discontinue any currently active code status orders. Care Teams Anode Adjuster Relationship Specialty Start Date End Date Daniel Yoon MD [address] [place] [phone] PCP - General Internal Medicine 04/30/24
--- OUTSIDE RECORDS SUMMARY | 2025-02-22 14:18 | XMS_ITS ---
Author Name [facility] Organization Unknown Care Team Organization Name Specialty Phone Email Start Date End Da te [facility] 02/02/2025 [facility] SEGUNDO Primary [facility] 05/16/2022 024 [facility] SHIRLEY SEGUNDO Primary Care 04/23/2022
== END 2025-02-22 11:49 | disposition home or self-care (01) ==
LOC: HO.XRAY 11:48
PROVIDERS: PCP Internal Medicine; Visit Provider Hospitalist
DX: R05.9 Cough, unspecified (principal); J44.9 Chronic obstructive pulmonary disease, unspecified
CPT/HCPCS: 71046

== ENCOUNTER → 2025-02-22 11:54 | Outpatient (BNV) | payer MEDICARE, SELFPAY | PROVIDERS: PCP Internal Medicine; Visit Provider Radiology Diagnostic Radiology | DX: J44.9 Chronic obstructive pulmonary disease, unspecified (principal) | CPT/HCPCS: 71046 ==

== ENCOUNTER 2025-02-23 11:17 | Outpatient (AMB) | payer MEDICARE, SELFPAY ==
[2025-02-23 11:21] VITALS: BP 120/64; PULSE 78; O2SAT 92; BMI 19.6
--- NOTE | 2025-02-23 11:21 | A.OFFVIS_ITS ---
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 She has had bronchoscopies in the past with positive stenotrophomonas. She also has a cardiac condition including AFib a flutter. She had a prolonged hospitalization the summer was very sick. She started to feel better. She completed a Holter monitor. She is still having issues with reflux. She is maintaining a diet and taking medications to minimize the acid. The patient did have a CT scan of the chest March 16, 2019 that we personally. The pulmonary nodules appear to be stable. She does have some evidence of airspace disease in the bases bring up the question of micro aspirations into the lungs. This appears to be a little bit worse on the left side in the right with compared to previous. Therefore, we talked about the importance of micro aspirations and minimizing the apparent we can consider promotility agents including Reglan, azithromycin and temporary done. However, domperidone and azithromycin do cause QT prolongation with the dangers with her sotalol. Right now Reglan is an option but will hold off at this time since she is doing well. We did review her CT scan of the chest demonstrating interval improvement her pulmonary nodules. She still has bronchiectatic changes and bronchitis looking airways, but, overall better. The right lower lobe has more dense airspace disease but that even looks improved when compared to her previous CAT scan from [facility]. She still waiting to get a portable oxygen concentrator. She has been working with [facility] to get that arranged. 07/23/2023 the patient is here for a pulmonary follow-up visit. The patient is nervous about her CT scan results. I was able to give her reassuring news. The nodular density that was in the left upper lobe resolved after the 2 months' worth of voriconazole. Therefore, we can go ahead and have her stop the voriconazole. She will go back on the inhaled tobramycin and also on the rifampin. The patient has been a little more congested so I believe this will be helpful. She still has evidence of active mycobacterial disease so therefore she needs to stay on the therapy. She has bronchiectasis in the inhaled tobramycin is been very effective for. The patient has been complaining of this burning sensation in the chest. Sometimes he can be pretty severe. For some reason response to prednisone although is not really her breathing. I did provide her with gabapentin that she can use at nighttime to help her with neuropathic pain. The patient also needs to follow-up with cardiology to make sure that she does not have active cardiac issue going on. She continues use oxygen with good effect. The patient also continues with the current respir atory therapy. Overall she is doing better. However, she does have significant comorbidities with extensive emphysema. Will continue monitoring him closely. 09/25/2023 the patient is here for a pulmonary follow-up visit. The patient recently was at the [facility] where she was admitted with pneumonia. She was having the burning sensation in the chest. Seems to happen when she started to get more congested sickly. Therefore likely a sign of airway burden and mucus plugging. She was given vancomycin and also cefepime in the hospital. Shunt she was discharged on Levaquin which she did take for 3 days although she needs to be very careful with QT. the patient does take sotalol. Did helping her burning sensation in the chest did improve on that therapy. Now she is at home she is off the prednisone. We did talk about a small dose of prednisone although she has osteoporosis and therefore risk for having further bone injury and fractures. Therefore I will give her some prednisone but not to take it right now unless she gets sick she can do short burst low dose. In addition to that the patient has been back on the inhaled tobramycin. This will help decrease some of the organisms from her lungs. Will go ahead and start her on a small dose of doxycycline in order to treat for Staph related chinstrap related infections. The patient has had significant probably microbial infection. And also from the Modic standpoint the patient unfortunately has not been able to use the macrolide therapy because of the sotalol. Although she is seen by new manager life and is felt that maybe she can come off the sotalol so therefore if that is the case we can start her on azithromycin. I will reach out to her new manager life to try a figure out how we can go about the change. She continues use the oxygen with good therapy. 11/06/2023 the patient is here for a pulmonary follow-up visit. Overall she is feeling better. Her burning chest sensation has improved. The patient is still having to use her oxygen more regularly. She is tolerating the doxycycline daily. She has also taking the rifampin. In addition to that she has been taking the inhaled tobramycin 28 days on 20 days off. The days that she is not using the inhaled tobramycin she started getting little bit more secretion although still clear or light in color. We again talked about the azithromycin. Currently she is still on sotalol. Her manager life did mention the possibility of her coming off sotalol. But at this point since she is doing well from the doxycycline and we already treating all the organisms with current medication regimen best just to stay on when she is on right now specially with a very complicated medical issues. The patient did have an incident here in the office where she tripped and her oxygen concentrator fell landing on the cannula receptor and breaking. Therefore she will [email or web address] and will try to get that fixed. We did review her PFTs. There just a little bit over a year. I do believe that she should start participating in pulmonary rehabilitation specially now with the heated humidity will be hard for her to be outside. The patient is willing to start this at this time although she is concerned about her stamina. 12/30/2023 the patient is here for a pulmonary follow-up visit. The patient is starting to feel little bit better today. She has also been participating in pulmonary rehabilitation which is been helpful for her. She still has significant chest congestion. She does respond well to the inhaled BALBINA although it does irritate her lungs and constant chest tightness. When she is on the inhaled BALBINA she typically has less congestion. Currently she is on doxycycline treating her empirically for stenotrophomonas. The patient also had been treated for Aspergillus and also achromobacter previously. She is doing better from that standpoint. She does need a CT scan of the chest to address t he previous findings. Her last CT scan was back in 10/04/2023. She does continue to use her oxygen good effect. She does have a portable oxygen concentrator the seems to be more portable for her. The patient returns 6 weeks. At that point will decide if she is going to continue the doxycycline. Also to note her mycobacterial cultures have been negative the last few times that they were checked. This is reassuring. Consider stopping the rifampin as well. Probably stop 1 medication at a time in view of her significant comorbidities. 02/12/2024 the patient is here for a pulmonary follow-up visit. Overall the patient has been a little bit more stable on the current medication regimen. She does respond well to the doxycycline. She was supposed to stop but she is concerned about stopping it based on the fact that she has been feeling well and does not want to go backwards. She has also been on inhaled tobramycin she is tolerating that. And she continues on the rifampin. I do believe that she should continue the doxycycline for now specially since her respiratory exam she still congested and now she is off the BALBINA. However, we did talk that when she is back on the BALBINA she can try to decrease it down to 3 times a week. In the meantime she continues with the neb treatments 3 times a day and also continues chest PT as she has the percussion vest and she also has the flutter valve. The patient also has been using her oxygen with good effect. She continues use it continuously. The patient follow-up in 3-4 months. If she has any worsening issues she will call for an earlier assessment. 05/19/2024 the patient is here for a pulmonary follow-up visit. The patient overall has been feeling better now. She was taken required a course of Vantin. After she did have worsening symptoms and she call the office and we just had her hold off for the weekend to see if she will recover by itself. She did feel better and did not need any additional antibiotics which is reassuring. The patient had recently started the inhaled tobramycin. She is tolerating it although it does cause some irritation to the throat and increased coughing and she also has a little more bronchospasms with. She knows to use her albuterol little bit more often to try to minimize on the adverse effects of the BALBINA. The patient does have issues with dysmotility. She does respond well to Reglan. I do think the Reglan will be a good option for her she can use as needed as long as she can monitor closely for any tremors where she would have to quickly stopped the medicine because it can result in irreversible tremors. She continues with other medications as prescribed in her respiratory therapy. She continues use the oxygen with good effect. She is [facility] and she is exercising. She is using her oxygen 3 L pulse with exercising sometimes she is not able to go as fast as she used to before. She can always consider bringing larger tank in running continuous although it is hard for her to carry. Therefore she will continue with what she is doing right now will follow-up in 2-3 months. If she has any issues prior to that she will call for an earlier assessment. 08/24/2024 the patient is here for pulmonary follow-up visit. Overall she has been doing well. The doxycycline 3 times a week up ineffective. She also continues with BALBINA 28 days on 20 days off in the rifampin as well. This therapies have been able to keep her secretions under control and respiratory status stable. She still also during the percussion vest and the Acapella valve for CPT. The patient did go to the beach over the winter and she had a great time she has has another trip planned for the summer. I did tell her to call [facility] to see about getting a concentrator delivered. And she also needs to take all her supplies with her. For now we are not going to make any changes with her medications but in the fall will talk about potentially deescalating some of her medications including rifampin. If she has any issues prior to that she will call for an earlier assessment. 11/24/2024 the patient is here for pulmonary follow-up visit. Overall the patient has been doing well. She continues a very aggressive respiratory regimen treating both the non tuberculosis mycobacterial infections, her stenotrophomonas history and Pseudomonas history as well. Seems like the medications are keeping her at [place]. Her mucus production is decreased. The patient does have nasal congestion at times in likely component of vaso motor rhinitis. Will go ahead and prescribe some nasal sprays for her. In the meantime she does complaint of the inhaled tobramycin causes her to have significant chest tightness and wheezing. She can go ahead and decrease it to once a day when she is doing him just to see if she gets any relief. If she starts developing worsening chest congestion though she will have to increase it we have to kind of work around the adverse effects of the medication. The patient will get an x-ray before the next visit she will continue to use her oxygen as prescribed as it has been very affecting beneficial. Will follow-up in 3-4 months. If she has any issues before that she will call for an earlier assessment. 02/23/2025 the patient is here for pulmonary follow-up visit. Overall she is doing okay last week or 2 she did have increase chest congestion and she did have increased shortness breath. She was able to expectorate a lot of phlegm and she started feeling better. She actually started feeling the burning sensation in the chest that she usually feels when she is getting infection. She is now back on her inhaled BALBINA twice a day she seems to be doing better with the secretions standpoint on the inhaled BALBINA. Although, it does cause her to have more chest tightness and wheezing. Therefore, the patient has been using the budesonide nebs which are good and she can also consider going on a small dose of prednisone although she has the monitor her blood sugars. She also continues on the rifampin which she seems to be tolerating. She recently did have a chest x-ray which we personally reviewed demonstrating no significant disease shows evidence of hyperinflation and chronic bronchiectasis. She does have pulmonary nodules last CT scan was back in 2023. Therefore, will have her get a CT scan prior to the next visit in 3-4 months. The patient will provide us with a sputum culture for both culture and AFB if her congestion returns. We also talked about considering a Ohtuvayre nebs. She is already on lot her nebulized therapy but this may be a good option to decrease inflammation of the airways. Will go ahead and request that and then figure out how to get it into her regimen reasonably. 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 Pulmonary nodules COPD (chronic obstructive pulmonary disease) Bronchiectasis Surgical History Hx of colonoscopy History of bronchoscopy History of appendectomy Social History Household Members: Other Household Members Other:: alone Housing: Condominium Are you a primary care assistant to a significant other at home: No Do you presently have visiting nurse or other home services: No Unable to assess alcohol history related to: Unknown Alcohol intake: never Patient Tobacco Use Status: Former Tobacco user Tobacco use type: Cigarette Years Smoked: 35 Second Hand Smoke Exposure: No Advance Directives Date on File: 01/31/22 service: No Current occupational status: retired Review of Systems Const Denies fever(s), Denies malaise, Denies night sweats, Reports poor appetite and Reports weight loss ENT Denies change in voice, Denies lip swelling, Denies mouth pain, Reports nasal congestion, Reports nasal discharge and Denies tongue swelling Card Denies chest pain and Reports dyspnea on exertion Resp Denies chest congestion, Reports cough, Denies hemoptysis, Reports dyspnea on exertion and Reports wheezing GI Denies abdominal pain and Reports nausea Musc Denies no additional complaints Neuro Denies Neuro-related abnormal movements Psych Denies no additional complaints Sherwin/Lymph Denies easy bleeding and Denies lymphadenopathy Aller/Immun Denies lip swelling, Denies tongue swelling and Reports wheezing Physical Exam Vital Signs: Last Vital Signs Pulse 78 02/23/25 11:21 BP 120/64 02/23/25 11:21 Pulse Ox 92 02/23/25 11:21 Oxygen Delivery Method Nasal Cannula 02/23/25 11:21 Oxygen Flow Rate 2 02/23/25 11:21 BMI result Body Mass Index 19.6 Last Vital Signs Temp 98.1 F 11/14/22 12:00 Pulse 87 11/14/22 12:00 Resp 19 11/14/22 12:00 BP 126/61 11/14/22 12:00 Pulse Ox 95 11/14/22 12:00 O2 Del Method Nasal Cannula 11/14/22 12:00 O2 Flow Rate 2 11/14/22 08:00 Oxygen Flow Rate 4 11/11/22 14:50 BMI result Body Mass Index 23.2 Const General: alert HEENT Head: Yes normocephalic Neck Neck: Yes normal visual inspection, Yes full ROM and Yes no lymphadenopathy Chest Chest palpation & inspection: normal inspection of the chest Resp Effort & Inspection: normal respiratory effort and prolonged expiratory phase Auscultation: no crackles, no rhonchi, wheezes and diminished lung sounds Cardio Rate: regular rate Rhythm: regular rhythm Heart sounds: S1 normal heart sound present and S2 normal heart sound present GI Palpation (GI): Soft to palpation Auscultation: normal bowel sounds Skin General skin exam: no rashes or lesions noted Extrem General: Yes no clubbing, cyanosis or edema Results Reviewed Results Reviewed: personally reviewed CT chest with chronic changes and hypernflation. Assessment & Plan Assessment & Plan (1) Bronchiectasis: Code(s): J47.9 - Bronchiectasis, uncomplicated Category: Medical Qualifiers: Bronchiectasis type: uncomplicated Qualified Code(s): J47.9 - Bronchiectasis, uncomplicated (2) Pulmonary nodules: Comment: Code(s): R91.8 - Other nonspecific abnormal finding of lung field Category: Medical (3) COPD (chronic obstructive pulmonary disease): Code(s): J44.9 - Chronic obstructive pulmonary disease, unspecified Category: Medical Qualifiers: COPD type: chronic bronchitis Chronic bronchitis type: mucopurulent Qualified Code(s): J41.1 - Mucopurulent chronic bronchitis (4) Nontuberculous mycobacterial disease of lung: Code(s): A31.0 - Pulmonary mycobacterial infection Category: Medical (5) Pseudomonas respiratory infection: Code(s): J98.8 - Other specified respiratory disorders; B96.5 - Pseudomonas (aeruginosa) (mallei) (pseudomallei) as the cause of diseases classified elsewhere Category: Medical (6) Aspergilloma: Comment: resolved on CT chest 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 - Aspergillosis, unspecified Category: Medical Plan Continue Balbina 28 days on, 28 days off continue Rifampin MWF continue Doxycycline MWF continue Advair/Spiriva Gabapentin 200mg qHS ROBERT as needed continue budesonide start Ohtuvayre start prednisone taper Sputum cx/AFB if worsens oxygen with activity and sleep reglan BID as needed for nausea continue CPT continue Pulmonary exercise F/U 3-4 months Orders: Orders XR chest 2V 02/22/25 J44.9 - Chronic obstructive pulmonary disease, unspecified, R05.9 - Cough, unspecified Sputum Cult + Gram stain Today R91.1 - Solitary pulmonary nodule CT chest wo IV con 10 Weeks R91.8 - Other nonspecific abnormal finding of lung field Acid-fast Culture + Smear Today R91.1 - Solitary pulmonary nodule Coding Level of Care Code Est Pt Level 5 ([id number]) Complex EM visit Add On G2211 Diagnoses Bronchiectasis without complication J47.9 Bronchiectasis type: uncomplicated Pulmonary nodules R91.8 Mucopurulent chronic bronchitis J41.1 COPD type: chronic bronchitis Chronic bronchitis type: mucopurulent Nontuberculous mycobacterial disease of lung A31.0 Pseudomonas respiratory infection J98.8; B96.5 Aspergilloma B44.9 Time Spent (min) 45
--- OUTSIDE RECORDS SUMMARY | 2025-02-23 14:25 | XMS_ITS | Clinical Summary ---
Author Organization [facility] Address [address] [place] [address] Care Team Providers Care Vp Scientific Name Role Phone Daniel Yoon MD Primary Care Provider [phone] Allergies No known active allergies Medications Medication [...] age to complete this topic Care Teams Vp Scientific Relationship Specialty Start Date End Date Daniel Yoon MD PCP - General Internal Medicine 04/03/22
--- OUTSIDE RECORDS SUMMARY | 2025-02-23 14:26 | XMS_ITS | Clinical Summary ---
Author Organization Patient Business Ser vice [facility] Address [address] [place] [address] Care Team Providers Care Medical Assistant Name Role Phone Daniel Yoon MD Primary Care Provider [phone] Allergies No known active allergies Medications glucosamine/zabrina [...] echocardiogram. COPD (chronic obstructive pu lmonary disease) ([facility] V24, [facility] V28) 04/23/2024 Overview (04/23/2024): [place] [facility] [place]. Assessment & Plan (09/24/2024 11:51 AM [...] as well. CHEMO (mycobacterium avium-int racellulare) infection ([facility] V24, [facility] V28) 10/01/2022 Assessment & Plan (09/24/2024 11:51 AM EDT): Carotid artery disease ([facility] V24) 08/24/2020 Overview (04/23/2024): Last Assessment & [...] right ICA. Gross hematuria 09/15/2017 Atrial flutter ([facility] V24, [facility] V28) 2016 Overview (05/07/2024): - Met Dr. [...] Rodarte's note from 2018 (not scanned into [facility]) - She even had a 30-day [...] EDT [facility] [address] [address] Encounter for screening mammogram for malignant neoplasm of breast Discharge Disposition: Home or Self Care 11/30/2024 2:40 PM EDT Office Visit [facility] - [address] [facility] [address] [place] [address] Luis Alberto Marte NP Paroxysmal A-fib ([facility] V24, [facility] V28) (Primary Dx); Atrial flutter, unspecified type ([facility] V24, [facility] V28); Atypical chest pain; Carotid artery disease, unspecified laterality, unspecified type ([facility] V24); Pure hypertriglyceridemia ; Primary hypertension; Murmur, [...] DX:Asthma COPD (chronic obstructive pu lmonary disease) ([facility] V24, [facility] V28) DX:COPD (chronic o bstructive pulmonary disease) ([facility]) High blood pressure DX:High bloo d pressure Osteoporosis DX:Osteoporosis GERD (gastroesophageal reflux disease) DX:GERD (gastroesophageal reflux disease) COPD (chronic obstructive pu lmonary disease) ([facility] V24, [facility] V28) DX:COPD (chronic o bstructive pulmonary disease) ([facility]); COMMENT: dr mehta History of tobacco abuse DX:Hist ory of tobacco abuse; COMMENT: 35 pk yrs Glaucoma 03/15/2015 DX:Glaucoma Hyperlipidemia 03/15/2015 DX:Hyperlipidemi a GERD (gastroesophageal reflux disease) 03/15/2015 DX:GERD (gastroesophageal reflux disease) Hypertension 03/15/2015 DX:Hypertension Diverticulitis 03/15/2015 DX:Diverticuliti s Onychomycosis 03/15/2015 DX:Onychomycosis Colon polyp 03/15/2015 DX:Colon polyp Anxiety 07/30/2016 DX:Anxiety Atrial flutter ([facility] V24, [facility] V28) 06/11/2017 DX:Atrial flutter ([facility]); COM MENT: On sotalol and eliquis; s/p abalation in 2015; follow reg with cards 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 of flyin g Gross hematuria 09/15/2017 DX:Gross hematur ia Osteopenia 03/15/2015 DX:Osteopenia Pulmonary nodule 04/09/2016 DX:Pulmonary no dule Thyroid nodule 12/2018 DX:Thyroid nodul e; COMMENT: 3 mm benign features Carotid stenosis, bilateral DX:C arotid stenosis, bilateral CHEMO (mycobacterium avium-intracellulare) infection ([facility] V24, [facility] V28) 10/01/2022 DX:CHEMO (mycobacterium avium-intracellulare) infection ([facility]) Family History Medical History Relation Name Comments [...] care for your loved ones. For example, children's minister or elderly care for an older adult? [...] Description 03/11/2025 11:30 AM EDT Ancillary Procedure [facility] - [facility] [address] [facility] [address] [place] [address] 04/08/2025 1:15 PM EDT Office Visit Adult Medicine [facility] - [address] [phone] Daniel Yoon MD [address] [place], [place] 04/11/2025 10:45 AM EDT Appointment Bone Density - [address] [phone] 04/19/2025 3:20 PM EST Consult Gastroenterology - [address] [facility] [address] [place] [id number] Fide Laguerre MD [address] [place] [id number] Health Maintenance Due Date Last Done Comments [...] year. [facility]amm[facility] at [address], [address] -------- FINAL REPORT -------- Dictated By: Erich Sheehan Dictated Date: 02/09/2025 15:05 ET Assigned Physician: Erich Sheehan Reviewed and Electronically Signed By: Erich Sheehan Signed Date: 02/09/2025 15:12 ET Workstation ID: [id number] Transcribed By: Self Edit Transcribed Date: 02/09/2025 15:05 ET Narrative 02/09/2025 3:12 PM EDT EXAM: SCREENING MAMMOGRAPHY, BILATERAL HISTORY: SCREENING. No additional history. COMPARISON: 08/04/23, 06/19/22, 06/19/21, 02/27/21 TECHNIQUE: Synthesized CC and MLO projections of each breast. Tomosynthesis of each breast in the CC and MLO projections. ADDITIONAL IMAGING: None Computer-aided detection was employed with the [employer] 3-D. TISSUE DENSITY: There are scattered [...] None Computer-aided detection was employed with the [employer] 3-D. TISSUE DENSITY: There are scattered [...] year. [facility]amm[facility] at [address], [address] -------- FINAL REPORT -------- Dictated By: Erich Sheehan Dictated Date: 02/09/2025 15:05 ET Assigned Physician: Erich Sheehan Reviewed and Electronically Signed By: Erich Sheehan Signed Date: 02/09/2025 15:12 ET Workstation ID: [id number] Transcribed By: Self Edit Transcribed Date: 02/09/2025 15:05 ET us Ami Fernandez TUBE CLOSING MACHINE OPERATOR IMG BI PROCEDURES Final Resul t * Basic metabolic panel (01/04/2025 10:22 AM EDT) Sodium 135 133 - 145 mmol/L LAB CHEMISTRY METHOD 01/04/2025 1:57 PM [facility] Potassium 4.4 3.5 - 5.5 mmol/L LAB CHEMISTRY METHOD 01/04/2025 1:57 PM [facility] Chloride 101 96 - 110 mmol/L LAB CHEMISTRY METHOD 01/04/2025 1:57 PM [facility] CO2 27 21 - 32 mmol/L LAB CHEMISTRY METHOD 01/04/2025 1:57 PM [facility] Anion Gap 7 3 - 11 LAB CHEMISTRY METHOD 01/04/2025 1:57 PM [facility] Glucose 96 70 - 100 mg/dL LAB CHEMISTRY METHOD 01/04/2025 1:57 PM [facility] BUN 21 5 - 25 mg/dL LAB CHEMISTRY METHOD 01/04/2025 1:57 PM [facility] Creatinine 0.85 0.50 - 1.10 mg/dL LAB CHEMISTRY METHOD 01/04/2025 1:57 PM [facility] eGFR 68 >=60 mL/min/1. 73m2 LAB CHEMISTRY METHOD 01/04/2025 1:57 PM [facility] Comment:Calculation based on the Chronic Kidney Disease Epidemiology Collaboration (CKD-EPI) equation refit without adjustment for race. BUN/Creatinine Ratio 24.7 LAB CHEMISTRY METHOD 01/04/2025 1:57 PM [facility] Calcium 10.4 8.5 - 10.5 mg/dL LAB CHEMISTRY METHOD 01/04/2025 1:57 PM EDT [facility] Blood Venous blood specimen / Unknown Venipuncture / Unknown 01/04/2025 10:22 AM EDT 01/04/2025 10:22 AM EDT Luis Alberto Marte NP LAB BLOOD ORDERABLES Final Resul t Performing Organization Address City/[facility]/ZIP Co de Phone Number [facility] [address] [place] [address], [place] [phone] * ECG 12 lead (11/30/2024 3:20 PM EDT) Ventricular Rate ECG 93 BPM [facility] Atrial Rate 93 BPM [facility] P-R Interval 232 ms GEM[facility] QRS Duration 128 ms GEM[facility] Q-T Interval 390 ms GEMUSE QTc 484 ms GEMUSE P Wave [place] 90 degrees GEMUSE R [place] 63 degrees GEMUSE T [place] 79 degrees GEMUSE ECG Interpretation Sinus rhythm with 1st degree A-V block Left bundle branch block When compared with ECG of 13-AUG-2024 14:35, No significant change was found Confirmed by CATHY BEST ([id number]) on 12/22/2024 4:30:44 PM [facility] 11/30/2024 2:48 PM EDT 12/22/2024 4:30 PM EDT Luis Alberto Marte NP ECG ORDERABLES Edited Result - Final Performing Organization Address [facility] Co de Phone Number GEMUSE * Lipid panel with reflex to direct LDL (04/22/2024 8:08 AM EST) Cholesterol 144 0 - 200 mg/dL LAB CHEMISTRY METHOD 04/22/2024 10:14 AM EST [facility] Triglycerides 101 0 - 150 mg/dL LAB CHEMISTRY METHOD 04/22/2024 10:14 AM EST [facility] HDL 68 >=40 mg/dL LAB CHEMISTRY METHOD 04/22/2024 10:14 AM EST [facility] LDL Calculated 56 0 - 100 mg/dL LAB CHEMISTRY METHOD 04/22/2024 10:14 AM EST [facility] VLDL Cholesterol Carlos 20.2 mg/dL LAB CHEMISTRY METHOD 04/22/2024 10:14 AM EST [facility] Non HDL Chol. (LDL+VLDL) 76 <145 mg/dL LAB CHEMISTRY METHOD 04/22/2024 10:14 AM EST [facility] Chol/HDL Ratio 2.1 0.0 - 4.4 LAB CHEMISTRY METHOD 04/22/2024 10:14 AM [facility] Blood Venous blood specimen / Unknown Venipuncture / Unknown 04/22/2024 8:08 AM EST 04/22/2024 8:08 AM EST Angélica WHITFIELD LAB BLOOD ORDERABLES Final Re sult [facility] [address] [place] [address], [place] [phone] * Falls Risk Assessment (05/16/2023) [facility] Falls Risk Assessment Abstracted [facility] Provider HEALTH MAINTENANCE Final Result * [...] (World Health Organization Fracture Risk Assessment) The [facility] Department of Internal Medicine recommends using National [...] screening schedule based on canelo Ryder., [facility] July 04, 2011 for patients [...] (World Health Organization Fracture Risk Assessment) The [facility] Department of Internal Medicine recommendsusing National Osteoporosis [...] higher), BMD testingevery 15 years Ginger WHITFIELD [facility] DXA PROCEDURES Final Result from Last 3 Months or Most Recently Relevant to Health Maintenance [facility] Advance Directives Documents on File Type Date Recorded Patient Senior Materials Analyst Expl anation Health Care Decision (hx) 08/22/2023 [...] currently active code status orders. Care Teams Medical Assistant Relationship Specialty Start Date End Date Daniel Yoon MD [address] [place] [phone] PCP - General Internal Medicine 04/30/24
== END 2025-02-23 11:53 | disposition home or self-care (01) ==
LOC: HO.HPS 11:17
PROVIDERS: PCP Internal Medicine; Visit Provider Hospitalist
DX: J47.9 Bronchiectasis, uncomplicated (principal); R91.8 Other nonspecific abnormal finding of lung field; J41.1 Mucopurulent chronic bronchitis; A31.0 Pulmonary mycobacterial infection; J98.8 Other specified respiratory disorders; B96.5 Pseudomonas (aeruginosa) (mallei) (pseudomallei) as the cause of diseases classified elsewhere; B44.9 Aspergillosis, unspecified
CPT/HCPCS: 99215; G2211

== ENCOUNTER → 2025-02-23 11:17 | Outpatient (BNVA) | payer MEDICARE, SELFPAY | PROVIDERS: PCP Internal Medicine; Visit Provider Hospitalist | DX: J41.1 Mucopurulent chronic bronchitis (principal); R05.9 Cough, unspecified; R91.8 Other nonspecific abnormal finding of lung field; J47.9 Bronchiectasis, uncomplicated; A31.0 Pulmonary mycobacterial infection; J98.8 Other specified respiratory disorders; B96.5 Pseudomonas (aeruginosa) (mallei) (pseudomallei) as the cause of diseases classified elsewhere; B44.9 Aspergillosis, unspecified; Z87.891 Personal history of nicotine dependence | CPT/HCPCS: 99212 ==

== ENCOUNTER 2025-03-03 14:49 | Outpatient (REF) | payer MEDICARE, SELFPAY ==
--- OUTSIDE RECORDS SUMMARY | 2025-03-03 16:31 | XMS_ITS | Clinical Summary ---
Author Organization Patient Business Ser vice [facility] Address [address] [place] [address] Care Team Providers Care Furnace Puncher Name Role Phone Daniel Yoon MD Primary Care Provider [phone] Allergies No known active allergies Medications glucosamine/chond ro kennedy A/C/Mn (GLUCOSAMINE-CHE DROIT-VIT C-MN ORAL) Take 1 Cap by mouth 2 times daily. Active guaifenesin (MUCINEX ORAL) if needed. Acti ve magnesium oxide 400 mg magnesium capsule Take 1 Cap by mouth daily. Active medical supply, miscellaneous (MISCELLANEOUS MEDICAL SUPPLY MISC) ACAPELLA 1 Device by Does not apply route 4 times daily for 30 days. 07/23/19 19 Active vit C/E/Zn/coppr/lute in/zeaxan (PRESERVISION AREDS-2 ORAL) Take 1 Cap by [...] COUGH OR WHEEZING. 11/13/19 19 Active calcium carbonate-vitamin D3 600 mg-5 mcg (200 unit) per tablet Take 1 Tablet by mouth 2 times daily. Active cholecalciferol (VITAMIN D-3) 25 mcg (1,000 unit) capsule Take 1 Cap by mouth daily. Active fluticasone-umecl idinium-vilantero l (Trelegy Ellipta) 200-62.5-25 mcg inhaler 02/08/20 23 Active ipratropium-albut Kassandra (DUONEB) 0.5-2.5 mg/3 mL nebulizer solution Inhale [...] 5 mg 28 tablet 02/01/20 25 Active Active Problems Problem Noted Date Diagnosed Date Murmur, cardiac 11/30/2024 Assessment & Plan (11/30/2024 3:19 PM EDT): The patient has cardiac murmur on exam. Sounds mild. Sounds like a mitral regurgitation. I am going to update an echocardiogram. COPD (chronic obstructive pu lmonary disease) (CMS/HCC V24, CMS/HCC V28) 04/23/2024 Overview (04/23/2024): Follows with [facility] Pulm. Assessment & Plan (09/24/2024 11:51 AM [...] as well. CHEMO (mycobacterium avium-int racellulare) infection ([facility] V24, [facility] V28) 10/01/2022 Assessment & Plan (09/24/2024 11:51 AM EDT): Carotid artery disease ([facility] V24) 08/24/2020 Overview (04/23/2024): Last [...] right ICA. Gross hematuria 09/15/2017 Atrial flutter ([facility] V24, [facility] V28) 2016 Overview (05/07/2024): - [...] Rodarte's note from 2018 (not scanned into [facility]) - She even had a 30-day [...] EDT [facility] [address] [address] Encounter for screening mammogram for malignant neoplasm of breast Discharge Disposition: Home or Self Care from Last 3 Months Immunizations Name Administration [...] Date Site/Laterality Comments APPENDECTOMY PROCEDURE:APPENDECTOMY APPENDECTOMY PROCEDURE: [place] APPENDECTOMY TONSILLECTOMY PROCEDURE: HISTORICAL TONSILLECTOMY Medical History Medical History Date Comments Asthma DX:Asthma COPD (chronic obstructive pu lmonary disease) ([facility] V24, [facility] V28) DX:COPD (chronic o bstructive pulmonary disease) ([facility]) High blood pressure DX:High bloo d pressure Osteoporosis DX:Osteoporosis GERD (gastroesophageal reflux disease) DX:GERD (gastroesophageal reflux disease) COPD (chronic obstructive pu lmonary disease) ([facility] V24, [facility] V28) DX:COPD (chronic o bstructive pulmonary disease) ([facility]); COMMENT: dr mehta History of tobacco abuse DX:Hist ory of tobacco abuse; COMMENT: 35 pk yrs Glaucoma 03/15/2015 DX:Glaucoma Hyperlipidemia 03/15/2015 DX:Hyperlipidemi a GERD (gastroesophageal reflux disease) 03/15/2015 DX:GERD (gastroesophageal reflux disease) Hypertension 03/15/2015 DX:Hypertension Diverticulitis 03/15/2015 DX:Diverticuliti s Onychomycosis 03/15/2015 DX:Onychomycosis Colon polyp 03/15/2015 DX:Colon polyp Anxiety 07/30/2016 DX:Anxiety Atrial flutter ([facility] V24, [facility] V28) 06/11/2017 DX:Atrial flutter ([facility]); COM MENT: On sotalol and eliquis; s/p abalation in 2016; follow reg with cards 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 For example, child care director or elderly care for an older adult? [...] Description 03/11/2025 11:30 AM EDT Ancillary Procedure [facility] - [address] [place] [address] 04/08/2025 1:15 PM EDT Office Visit [facility] Medicine [place] - [address] [phone] Daniel Yono MD [address] [place] [address] 04/11/2025 10:45 AM EDT Appointment Bone Density - [address] [phone] 04/19/2025 3:20 PM EST Consult Gastroenterology - [address] [phone] Fide Laguerre MD [address] [place] [address] Health Maintenance Due Date Last Done Comments [...] Routine 01/04/2025 10:22 AM EDT Primary hypertension LIPID PANEL WITH REFLEX TO DIRECT LDL [...] year. [facility]amm[facility] [address], [address] -------- FINAL REPORT -------- Dictated By: Erich Sheehan Dictated Date: 02/09/2025 15:05 ET Assigned Physician: Erich Sheehan Reviewed and Electronically Signed By: Erich Sheehan Signed Date: 02/09/2025 15:12 ET Workstation ID: [id number] Transcribed By: Self Edit Transcribed Date: 02/09/2025 15:05 ET Narrative 02/09/2025 3:12 PM EDT EXAM: SCREENING MAMMOGRAPHY, BILATERAL HISTORY: SCREENING. No additional history. COMPARISON: 08/04/23, 06/19/22, 06/19/21, 02/27/21 TECHNIQUE: Synthesized CC and MLO projections of each breast. Tomosynthesis of each breast in the CC and MLO projections. ADDITIONAL IMAGING: None Computer-aided detection was employed with the [employer] 3-D. TISSUE DENSITY: There are scattered areas [...] None Computer-aided detection was employed with the [employer] 3-D. TISSUE DENSITY: There are scattered areas [...] year. [facility]amm[facility] at [address], [address] -------- FINAL REPORT -------- Dictated By: Erich Sheehan Dictated Date: 02/09/2025 15:05 ET Assigned Physician: Erich Sheehan Reviewed and Electronically Signed By: Erich Sheehan Signed Date: 02/09/2025 15:12 ET Workstation ID: [id number] Transcribed By: Self Edit Transcribed Date: 02/09/2025 15:05 ET us Ami Fernandez EXCELSIOR PICKER IMG BI PROCEDURES Final Resul t * Basic metabolic panel (01/04/2025 10:22 AM EDT) Sodium 135 133 - 145 mmol/L LAB CHEMISTRY METHOD 01/04/2025 1:57 PM EDT [facility] Potassium 4.4 3.5 - 5.5 mmol/L LAB CHEMISTRY METHOD 01/04/2025 1:57 PM EDT [facility] Chloride 101 96 - 110 mmol/L LAB CHEMISTRY METHOD 01/04/2025 1:57 PM EDT [facility] CO2 27 21 - 32 mmol/L LAB CHEMISTRY METHOD 01/04/2025 1:57 PM EDT [facility] Anion Gap 7 3 - 11 LAB CHEMISTRY METHOD 01/04/2025 1:57 PM EDT [facility] Glucose 96 70 - 100 mg/dL LAB CHEMISTRY METHOD 01/04/2025 1:57 PM EDT [facility] BUN 21 5 - 25 mg/dL LAB CHEMISTRY METHOD 01/04/2025 1:57 PM EDT [facility] Creatinine 0.85 0.50 - 1.10 mg/dL LAB CHEMISTRY METHOD 01/04/2025 1:57 PM EDT [facility] eGFR 68 >=60 mL/min/1. 73m2 LAB CHEMISTRY METHOD 01/04/2025 1:57 PM EDT [facility] Comment:Calculation based on the Chronic Kidney Disease Epidemiology Collaboration (CKD-EPI) equation refit without adjustment for race. BUN/Creatinine Ratio 24.7 LAB CHEMISTRY METHOD 01/04/2025 1:57 PM EDT [facility] Calcium 10.4 8.5 - 10.5 mg/dL LAB CHEMISTRY METHOD 01/04/2025 1:57 PM EDT [facility] Blood Venous blood specimen / Unknown Venipuncture / Unknown 01/04/2025 10:22 AM EDT 01/04/2025 10:22 AM EDT us Luis Alberto Marte NP LAB BLOOD ORDERABLES Final Resul t [facility] [address] [place] [id number], * Lipid panel with reflex to direct [...] 4.4 LAB CHEMISTRY METHOD 04/22/2024 10:14 AM EST [facility] Blood Venous blood specimen / Unknown Venipuncture / Unknown 04/22/2024 8:08 AM EST 04/22/2024 8:08 AM EST Angélica WHITFIELD LAB BLOOD ORDERABLES Final Re sult [facility] [address] [place] [address], * Falls Risk Assessment (05/16/2023) [facility] Falls Risk Assessment Abstracted [facility] Provider HEALTH MAINTENANCE Final Result * DXA [...] (World Health Organization Fracture Risk Assessment) [facility] Department of Internal Medicine recommends using [...] alternative screening schedule based on canelo Ryder., [facility] July 04, 2011 for patients with osteopenia [...] (World Health Organization Fracture Risk Assessment) [facility] Department of Internal Medicine recommendsusing National [...] alternative screening schedule based on canelo Ryder., [facility] for patients with osteopenia (based on hip BMD T-score) is as follows: * advanced osteopenia (T scores -2.00 to -2.49), BMD testing every year * moderate osteopenia (T scores -1.50 to -1.99), BMD testing every 5years mild osteopenia or normal BMD (T scores -1.50 and higher), BMD testingevery 15 years Ginger WHITFIELD [facility] DXA PROCEDURES Final Result from Last 3 Months or Most Recently Relevant to Health Maintenance Insurance MEDICARE [facility] Advance Directives Documents on File Type Date Recorded Patient Lottery Office Manager Expl anation Health Care Decision (hx) [...] currently active code status orders. Care Teams Furnace Puncher Relationship Specialty Start Date End Date Daniel Yoon MD [address] [place] [phone] PCP - General Internal Medicine 04/30/24
--- OUTSIDE RECORDS SUMMARY | 2025-03-03 16:31 | XMS_ITS | Clinical Summary ---
Author Organization [facility] Address [address] [place] [address] Care Team Providers Care Composite Technician Name Role Phone Daniel Yoon MD Primary Care Provider Allergies No known active allergies Medications Medication [...] age to complete this topic Care Teams Composite Technician Relationship Specialty Start Date End Date Daniel Yoon MD PCP - General Internal Medicine 04/03/22
== END 2025-03-03 14:50 | disposition home or self-care (01) ==
LOC: HO.LNP 14:49
PROVIDERS: Visit Provider Hospitalist
DX: R91.1 Solitary pulmonary nodule (principal)
CPT/HCPCS: 87070; 87077; 87116; 87186; 87205; 87206

== ENCOUNTER 2025-03-08 12:39 | Inpatient (IN) | payer MEDICARE, SELFPAY ==
--- NOTE | ~2025-03-08 | XR_ITS ---
EXAMINATION: XR CHEST CLINICAL INFORMATION: cough COMPARISON: February 22, 2025 TECHNIQUE: PA and lateral views FINDINGS: Hyperinflated lungs. Pulmonary reticular nodular pattern. Linear opacities in the lower hemithoraces. No gross pleural effusion or pneumothorax. Cardiac mediastinal silhouette size is normal. Calcified plaque thoracic aorta. Osteopenia versus osteoporosis. Multilevel spondylosis. Degenerative changes in the right shoulder. XR/XR chest 2V IMPRESSION: COPD emphysematous type changes with the likely superimposed acute small airway inflammatory process. Electronically signed by: Matt Sánchez MD 03/08/2025 01:20 PM EDT
--- NOTE | 2025-03-08 12:44 | ED.GENADULT ---
HPI - General Adult General Chief complaint: Upper Respiratory Symptoms Stated complaint: sent in by for antibotics Time Seen by Provider: 03/08/25 16:07 Source: patient, RN notes reviewed and old records reviewed Mode of arrival: ambulatory Limitations: no limitations History of Present Illness ED Provider: Dinh HPI narrative: 84-year-old female past medical history significant for bronchiectasis and COPD on 2 L via nasal cannula AFib on Eliquis, hypertension mycobacterial disease presents for evaluation of a positive Pseudomonas sputum culture. Patient reports general malaise and fatigue for the last 3 weeks or so. She had a sputum culture dated 03/03/2025 the ended up growing Pseudomonas aeruginosa This was sensitive to ciprofloxacin and meropenem Dr. 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 She denies any significant shortness of breath compared to her baseline Related Data Home Medications ?Medication ?Instructions ?Recorded ?Confirmed antiarthritic combination no.2 900 1,200 mg PO BID 07/03/20 05/19/24 mg tablet (glucosamine-chondroitin) apixaban 5 mg tablet (Eliquis) 5 mg PO BID 07/03/20 05/19/24 calcium carbonate (Calcium 600) 600 mg PO BID 07/03/20 05/19/24 coenzyme Q10 400 mg capsule 400 mg PO DAILY 07/03/20 05/19/24 guaifenesin 600 mg tablet, 600 mg PO BID 07/03/20 05/19/24 extended release 12 hr (Mucinex) lorazepam 0.5 mg tablet 0.5 mg PO Q6H PRN Anxiety 07/03/20 05/19/24 sotalol 80 mg tablet 80 mg PO BID 07/03/20 05/19/24 vit 1 cap PO BID 07/03/20 05/19/24 C,E,zinc,Ne-clixr-2-lutein-zeaxanthin 250 mg-2.5 mg-0.5 mg capsule zolpidem 5 mg tablet (Ambien) 5 mg PO BEDTIME PRN Sleep 07/03/20 05/19/24 Oxygen Home Use 07/09/22 alendronate 70 mg tablet 70 mg PO SA 07/09/22 05/19/24 nebulizers 07/09/22 Lactobacillus rhamnosus GG 10 1 cap PO DAILY 09/27/22 05/19/24 billion cell capsule (Culturelle) magnesium oxide 400 mg PO BEDTIME 09/27/22 05/19/24 potassium chloride 20 mEq 10 meq PO DAILY 09/27/22 05/19/24 tablet,extended release(part/cryst) acetaminophen 500 mg tablet 1,000 mg PO QID PRN Pain 05/05/23 05/19/24 cholecalciferol (vitamin D3) 50 50 mcg PO DAILY 05/05/23 05/19/24 mcg (2,000 unit) tablet d-mannose 500 mg capsule 1,500 mg PO BID 05/05/23 05/19/24 melatonin 5 mg tablet 5 mg PO BEDTIME 05/05/23 05/19/24 omega 3 350 mg-dha 235 mg-epa 90 1 cap PO DAILY 05/05/23 05/19/24 mg-fish oil 597 mg capsule,delay rel ([place]-3) polyethylene glycol 3350 17 gram 17 g PO DAILY PRN Constipation 05/05/23 05/19/24 oral powder packet (Miralax) ezetimibe 10 mg tablet (Zetia) 10 mg PO DAILY 12/30/23 05/19/24 evolocumab 140 mg/mL subcutaneous 140 mg subcut Q2W 04/14/24 05/19/24 syringe (Repatha Syringe) Previous Rx's ?Medication ?Instructions ?Recorded albuterol sulfate 90 mcg/actuation 2 puff PO Q6H PRN for wheezing #34 10/22/22 aerosol inhaler grams omeprazole 40 mg capsule,delayed 40 mg PO BID 30 days #60 caps 06/25/23 release metoclopramide HCl 5 mg tablet 5 mg PO BID PRN nausea and 05/19/24 (Reglan) vomiting 30 days #60 tabs rifampin 300 mg capsule 300 mg PO MOWEFR 90 days #39 caps 06/21/24 fluticasone fur. 200 mcg-umeclid 1 ea inhalation DAILY 30 days #60 06/28/24 62.5 mcg-vilant 25 mcg ea inhalat.powder (Trelegy Ellipta) budesonide 0.5 mg/2 mL suspension 0.5 mg (2 mL) inhalation DAILY 30 11/01/24 for nebulization days #30 ea fluticasone propionate 50 2 spray intranasal DAILY 30 days 11/25/24 mcg/actuation nasal #15.8 mL spray,suspension ipratropium bromide 42 mcg (0.06 2 spray intranasal TID PRN allergy 11/25/24 %) nasal spray symptoms #15 mL ipratropium 0.5 mg-albuterol 3 mg 3 ml inhalation TID 30 days #270 mL 12/22/24 (2.5 mg base)/3 mL nebulization soln doxycycline monohydrate 100 mg 100 mg PO DAILY 30 days #90 tabs 01/10/25 tablet sodium chloride 7 % for 1 inh inhalation BID #960 mL 01/18/25 nebulization tobramycin 300 mg/5 mL in 0.225 % 5 ml inhalation BID #280 mL 02/07/25 sodium chloride for nebulization Allergies Allergy/AdvReac Type Severity Reaction Status Date / Time No Known Allergies Allergy Verified 03/08/25 12:46 Review of Systems Constitutional: Constitutional: Denies body ache(s), Denies chills and Denies fever(s) Eyes: Eyes: Denies blurry vision ENT: Denies vertigo and Denies dizziness Cardiovascular: Cardiovascular: Denies chest pain, Reports dyspnea and Denies dyspnea on exertion Respiratory: Respiratory: Reports change in phlegm color, Reports chest congestion, Denies cough, Reports dyspnea and Denies dyspnea on exertion Gastrointestinal: Gastrointestinal: Denies abdominal pain, Denies nausea and Denies vomiting Musculoskeletal: Musculoskeletal: Denies back pain Integumentary/Breasts: Skin/Breast: Denies rash Neurologic: Denies vertigo and Denies dizziness Psychiatric: Psychiatric: Denies anxiety PMFSH Past Medical History Medical History (Updated 03/08/25 @ 16:50 by Tres Tao) Aspergilloma Chronic respiratory failure with hypoxia Pseudomonas respiratory infection Exacerbation of bronchiectasis due to infection Lung mass Pneumonitis Nontuberculous mycobacterial disease of lung GERD (gastroesophageal reflux disease) History of diverticulitis Hyperlipidemia HTN (hypertension) Anxiety Supplemental oxygen dependent Pneumonia Afib 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 Pulmonary nodules COPD (chronic obstructive pulmonary disease) Bronchiectasis Surgical History Hx of colonoscopy History of bronchoscopy History of appendectomy Social History Social History Household Members: Other Household Members Other:: alone Housing: Condominium Are you a primary patient care secretary to a significant other at home: No Do you presently have visiting nurse or other home services: No Alcohol intake: never Patient Tobacco Use Status: Former Tobacco user Tobacco use type: Cigarette Years Smoked: 35 Second Hand Smoke Exposure: No Advance Directives: Yes Advance Directives on File: Yes Advance Directives Date on File: 01/31/22 Do you have a plan to hurt others: No Plan service: No Current occupational status: retired Physical Exam ED Vital Signs: Vital Signs - 24 hr 03/08/25 12:45 03/08/25 15:32 Temperature 98.4 F 97.7 F Pulse Rate 95 90 Respiratory Rate 20 18 Blood Pressure 170/77 H 181/75 H Pulse Oximetry 92 96 Oxygen Delivery Method Nasal Cannula Nasal Cannula Oxygen Flow Rate 2 BMI result Body Mass Index 20.1 Const Other: Chronically ill-appearing General: comfortable, no acute distress, alert and awake Orientation/consciousness: patient oriented x3 HENMT Head: Yes normocephalic and Yes atraumatic Eyes Eyelids: Yes eyelids normal Conjunctivae: conjunctivae normal Sclerae: sclerae normal Corneas: corneas normal Pupils: Equal, round and reactive pupils present EOM: EOMs intact bilaterally Neck Neck: Yes full ROM Resp Effort & Inspection: normal respiratory effort, able to speak in complete sentences and not labored Auscultation: wheezes (Diffuse expiratory wheeze) Skin General skin exam: elasticity normal Neuro General: patient oriented x3 Cranial nerves: Yes Equal, round and reactive pupils present and Yes Bilaterally intact EOM present Cognition (Neuro): normal cognition Extrem Other: Moving all extremities well without any obvious deformities Course Course Course Narrative: This is a Rapid Medical Examination (RME) performed by Jak Reyes PA-C in triage. Full HPI, ROS, assessment and treatment plan per primary provider in the Main ED. Hx: 84 yo F hx of COPD on 2 L supplemental O2, bronchiectasis, AFib on Eliquis, hypertension history of non tuberculosis mycobacterial disease of the lung here for abd lab results. Reports feeling generally unwell x3 wks, history of multiple lung infections, sputum culture was sent on 03/03/2025 per pulmonology, grew Pseudomonas, she is contacted and advised to come in for IV antibiotics. Plan: labs, lactic, blood cultures Medical Decision Making Medical Decision Making [facility] Narrative: 84-year-old female presents for evaluation of a positive Pseudomonas sputum culture. She does not meet sepsis criteria but does have a history of advanced COPD in his oxygen dependent. She does take doxycycline daily for prophylaxis as well as tobramycin inhalation. I reviewed note from Dr. Brown that the patient has hand written and once around meropenem given that she is on sotalol and she would not be on fluoroquinolones. Her chest x-ray does show acute on chronic COPD changes, we will give her a dose of Solu-Medrol, a 500 cc bag of IV fluids and admit her to the medical service. Blood cultures were drawn. Differential Diagnosis Differential Diagnoses: The differential diagnosis associated with the presentation includes Pseudomonas COPD exacerbation Bronchiectasis Mycobacterium Admission/Observation Consideration of admission/observation: Escalation of care including admission/observation considered Lab Data [facility] Lab Attestation statement: I reviewed the patient's lab results. No leukocytosis or significant anemia. No significant electrolyte abnormalities warranting intervention. The patient's BUN is mildly elevated to 22 which is consistent with a baseline. Currently is within normal limits. 03/08/25 13:06 03/08/25 13:06 Labs: Lab Results 03/08/25 Range/Units 13:06 WBC 10.3 (4.8-10.8) X10*3/uL RBC 4.25 (4.20-5.50) X10*6/uL Hgb 12.9 (12.0-16.0) g/dl Hct 38.6 (37.0-47.0) % MCV 90.8 (80.0-98.0) fL MCH 30.4 (27.0-33.0) pg MCHC 33.4 (31.0-35.0) g/dl RDW 13.4 (11.0-16.0) % Plt Count 432 H (160-400) X10*3/uL MPV 8.7 L (9.4-12.3) fL Immature Gran % (Auto) 0.6 H (0.0-0.4) % Neut % (Auto) 62.9 (45-73) % Lymph % (Auto) 24.0 (20-40) % Jay % (Auto) 11.1 H (2-11) % Eos % (Auto) 0.9 (0-4) % Baso % (Auto) 0.5 (0-2) % Lymph # (Auto) 2.5 (1.2-4.9) X10*3/uL Jay # (Auto) 1.1 (0.1-1.2) X10*3/uL Eos # (Auto) 0.1 (0.0-0.4) X10*3/uL Baso # (Auto) 0.1 (0.0-0.2) X10*3/uL Abs Immat Gran (auto) 0.06 H (0.00-0.03) X10*3/uL Absolute Neuts (auto) 6.5 (2.0-8.3) x10*3/uL Absolute Nucleated RBC 0.000 (0.0-0.012) X10*3/uL Nucleated RBC % (auto) 0.0 (0.0-0.2) /100WBC Sodium 137 (135-145) mmol/L Potassium 4.1 (3.3-5.1) mmol/L Chloride 98 (96-108) mmol/L Carbon Dioxide 28 (22-29) mmol/L Anion Gap 15 (12-20) BUN 22 H (9-16) mg/dL Creatinine 0.66 (0.5-1.4) mg/dL Estim Creat Clear Calc 55.9 Estimated GFR > 60 Random Glucose 106 (60-115) mg/dL Lactic Acid 1.0 (0.5-2.0) mmol/L Calcium 10.4 H (8.4-10.2) mg/dL Magnesium 1.7 (1.6-2.6) mg/dL Total Bilirubin 0.2 (0.0-1.0) mg/dL AST 23 (5-31) U/L ALT 16 (0-31) U/L Alkaline Phosphatase 92 (39-117) U/L Total Protein 7.9 (6.5-8.0) g/dL Albumin 4.0 (3.5-5.0) g/dL Independent Interpretation I performed an independent interpretation of an: Plain X-Ray (Agree with Radiology interpretation) Radiology Impression Discussion of test interpretation with radiology: I have reviewed the radiologist's reading. Radiologist Impression: FINDINGS: Hyperinflated lungs. Pulmonary reticular nodular pattern. Linear opacities in the lower hemithoraces. No gross pleural effusion or pneumothorax. Cardiac mediastinal silhouette size is normal. Calcified plaque thoracic aorta. Osteopenia versus osteoporosis. Multilevel spondylosis. Degenerative changes in the right shoulder. XR/XR chest 2V IMPRESSION: COPD emphysematous type changes with the likely superimposed acute small airway inflammatory process. Electronically signed by: Matt Sánchez MD 03/08/2025 01:20 PM EDT RP Discharge Plan Discharge Clinical Impression: COPD (chronic obstructive pulmonary disease) Patient Disposition: Admitted As Inpatient Print Language: Bulgarian
[2025-03-08 12:45] VITALS: BP 170/77; PULSE 95; RESP 20; TEMP 36.9; O2SAT 92; BMI 20.1
[2025-03-08 13:17] LABS: MANUAL DIFF FLAG NO
[2025-03-08 13:20] LABS: Hematocrit 38.6 % (37.0-47.0); Hemoglobin 12.9 g/dl (12.0-16.0); Imm Gran Abs Auto 0.06 X10*3/uL (0.00-0.03); Imm Gran Pct Auto 0.6 % (0.0-0.4); Lymphocytes Absolute Auto 2.5 X10*3/uL (1.2-4.9); Mean Corpuscular HGB Conc 33.4 g/dl (31.0-35.0); Mean Corpuscular Hemoglobin 30.4 pg (27.0-33.0); Mean Corpuscular Volume 90.8 fL (80.0-98.0); NRBC Abs Auto 0.000 X10*3/uL (0.0-0.012); NRBC Pct Auto 0.0 /100WBC (0.0-0.2); Platelet Count 432 X10*3/uL (160-400); Red Blood Count 4.25 X10*6/uL (4.20-5.50); White Blood Count 10.3 X10*3/uL (4.8-10.8)
[2025-03-08 13:37] LABS: Alanine Aminotransferase 16 U/L (0-31); Albumin Level 4.0 g/dL (3.5-5.0); Alkaline Phosphatase 92 U/L (39-117); Anion Gap 15 (12-20); Aspartate Amino Transferase 23 U/L (5-31); Blood Urea Nitrogen 22 mg/dL (9-16); Calcium 10.4 mg/dL (8.4-10.2); Carbon Dioxide 28 mmol/L (22-29); Chloride 98 mmol/L (96-108); Creatinine Clr Calc Pharmacy 55.9; Estimated Glomerular Filt Rate > 60; Magnesium 1.7 mg/dL (1.6-2.6); Potassium 4.1 mmol/L (3.3-5.1); Sodium 137 mmol/L (135-145); Total Protein 7.9 g/dL (6.5-8.0)
[2025-03-08 15:32] VITALS: BP 181/75; PULSE 90; RESP 18; TEMP 36.5; O2SAT 96
--- NOTE | 2025-03-08 16:47 | ECG_ITS ---
Test Reason : SOB Blood Pressure : */* mmHG Vent. Rate : 83 BPM Atrial Rate : 83 BPM P-R Int : 226 ms QRS Dur : 84 ms QT Int : 400 ms P-R-T Axes : 76 52 50 degrees QTcB Int : 470 ms Sinus rhythm with sinus arrhythmia with 1st degree A-V block Anterior infarct (cited on or before 27-Sep-2022) Abnormal ECG When compared with ECG of 24-Jun-2023 08:26, No significant change was found Referred By: Tres Tao Electronically Signed By: Luis Enrique Davis
--- NOTE | 2025-03-08 17:12 | HO.NURTONUR ---
Zainab was called to ED when she tested positive with sputum culture for pseudomonas, patient brought back to ED room 16. Wears 2lNC at baseline, hx copd and bronchiectisis. patient is alert and oriented x4, ambulatory with rolling o2 tank. patient states she contacted her doctor when she was having increased fatigue, and gen malaise x3 weeks. patient also endorses nausea. patient has #20 in LFA. has received 1lNS, 125mg solumedrol ivp and IV meropenum per AUG.
--- OUTSIDE RECORDS SUMMARY | 2025-03-08 18:28 | XMS_ITS | Clinical Summary ---
Author Organization [facility] Address [address] [place] [address] Care Team Providers Care Urologist Name Role Phone Daniel Yoon MD Primary Care Provider [phone] Allergies No known active allergies Medications Medication [...] age to complete this topic Care Teams Urologist Relationship Specialty Start Date End Date Daniel Yoon MD PCP - General Internal Medicine 04/03/22
--- OUTSIDE RECORDS SUMMARY | 2025-03-08 18:28 | XMS_ITS | Clinical Summary ---
Author Organization Patient Business [employer] [facility] Address [address] [place] [address] Care Team Providers Care Division Head Name Role Phone Daniel Yoon MD Primary Care Provider [phone] Allergies No known active allergies Medications glucosamine/chond [...] CMS/HCC V28) 04/23/2024 Overview (04/23/2024): Follows with [facility] Pulm. Assessment & Plan (09/24/2024 11:51 AM [...] as well. CHEMO (mycobacterium avium-int racellulare) infection ([facility] V24, [facility] V28) 10/01/2022 Assessment & Plan (09/24/2024 11:51 AM EDT): Carotid artery disease ([facility] V24) 08/24/2020 Overview (04/23/2024): Last [...] right ICA. Gross hematuria 09/15/2017 Atrial flutter ([facility] V24, [facility] V28) 2016 Overview (05/07/2024): - [...] time- this was even mentioned in Dr. Roadrte's note from 2018 (not scanned into [facility]) - She even had [...] EDT Hospital Encounter [facility] at [address] [phone] Encounter for screening mammogram for [...] Date Site/Laterality Comments APPENDECTOMY PROCEDURE:APPENDECTOMY APPENDECTOMY PROCEDURE: ME APPENDECTOMY TONSILLECTOMY PROCEDURE: HISTORICAL TONSILLECTOMY Medical History Medical History Date Comments Asthma DX:Asthma COPD (chronic obstructive pu lmonary disease) ([facility] V24, [facility] V28) DX:COPD (chronic o bstructive pulmonary disease) ([facility]) High blood pressure DX:High bloo d pressure Osteoporosis DX:Osteoporosis GERD (gastroesophageal reflux disease) DX:GERD (gastroesophageal reflux disease) COPD (chronic obstructive pu lmonary disease) ([facility] V24, [facility] V28) DX:COPD (chronic o bstructive pulmonary disease) ([facility]); COMMENT: dr mehta History of tobacco abuse DX:Hist ory of tobacco abuse; COMMENT: 35 pk yrs Glaucoma 03/15/2015 DX:Glaucoma Hyperlipidemia 03/15/2015 DX:Hyperlipidemi a GERD (gastroesophageal reflux disease) 03/15/2015 DX:GERD (gastroesophageal reflux disease) Hypertension 03/15/2015 DX:Hypertension Diverticulitis 03/15/2015 DX:Diverticuliti s Onychomycosis 03/15/2015 DX:Onychomycosis Colon polyp 03/15/2015 DX:Colon polyp Anxiety 07/30/2016 DX:Anxiety Atrial flutter ([facility] V24, [facility] V28) 06/11/2017 DX:Atrial flutter ([facility]); COM MENT: On sotalol and [...] your loved ones. For example, child care center administrator or elderly care for an older adult? [...] Care Team (Late st Contact Info) Description 04/08/2025 1:15 PM EDT Office Visit Adult Medicine [address] [phone] Daniel Yoon MD [address] [place], [place] 04/11/2025 10:45 AM EDT Appointment Bone Density - [place] [id number] [place], [place] [phone] 04/19/2025 3:20 PM EST Consult Gastroenterology - [address] [phone] Fide Laguerre MD [address] [address] Health Maintenance Due Date Last Done Comments [...] year. Mammography location: [facility] at [address], [address] -------- FINAL REPORT -------- Dictated By: Erich Sheehan Dictated Date: 02/09/2025 15:05 ET Assigned Physician: Erich Sheehan Reviewed and Electronically Signed By: Erich Sheehan Signed Date: 02/09/2025 15:12 ET Workstation ID: [id number] Transcribed By: Self Edit Transcribed Date: 02/09/2025 15:05 ET Narrative 02/09/2025 3:12 PM EDT EXAM: SCREENING MAMMOGRAPHY, BILATERAL HISTORY: SCREENING. No additional history. COMPARISON: 08/04/23, 06/19/22, 06/19/21, 02/27/21 TECHNIQUE: Synthesized CC and MLO projections of each breast. Tomosynthesis of each breast in the CC and MLO projections. ADDITIONAL IMAGING: None Computer-aided detection was employed with the [employer] AI 3-D. TISSUE DENSITY: There are scattered [...] None Computer-aided detection was employed with the [employer] AI 3-D. TISSUE DENSITY: There are scattered [...] year. Mammography location: [facility] at [address], [address] -------- FINAL REPORT -------- Dictated By: Erich Sheehan Dictated Date: 02/09/2025 15:05 ET Assigned Physician: Erich Sheehan Reviewed and Electronically Signed By: Erich Sheehan Signed Date: 02/09/2025 15:12 ET Workstation ID: [id number] Transcribed By: Self Edit Transcribed Date: 02/09/2025 15:05 ET us Ami Fernandez BLACKSM[employer] SUPERVISOR IMG BI PROCEDURES Final Resul t * Basic metabolic panel (01/04/2025 10:22 AM EDT) Sodium 135 133 - 145 mmol/L LAB CHEMISTRY METHOD 01/04/2025 1:57 PM [facility] Potassium 4.4 3.5 - 5.5 mmol/L LAB CHEMISTRY METHOD 01/04/2025 1:57 PM [facility] Chloride 101 96 - 110 mmol/L LAB CHEMISTRY METHOD 01/04/2025 1:57 PM [facility] CO2 27 21 - 32 mmol/L LAB CHEMISTRY METHOD 01/04/2025 1:57 PM [facility] Anion Gap 7 3 - 11 LAB CHEMISTRY METHOD 01/04/2025 1:57 PM [facility] Glucose 96 70 - 100 mg/dL LAB CHEMISTRY METHOD 01/04/2025 1:57 PM [facility] BUN 21 5 - 25 mg/dL LAB CHEMISTRY METHOD 01/04/2025 1:57 PM EDT [facility] Creatinine 0.85 0.50 - 1.10 mg/dL LAB CHEMISTRY METHOD 01/04/2025 1:57 PM EDT [facility] eGFR 68 >=60 mL/min/1. 73m2 LAB CHEMISTRY METHOD 01/04/2025 1:57 PM EDT [facility] Comment:Calculation based on the Chronic Kidney Disease Epidemiology Collaboration (CKD-EPI) equation refit without adjustment for race. BUN/Creatinine Ratio 24.7 LAB CHEMISTRY METHOD 01/04/2025 1:57 PM EDT [facility] Calcium 10.4 8.5 - 10.5 mg/dL LAB CHEMISTRY METHOD 01/04/2025 1:57 PM EDT [facility] Blood Venous blood specimen / Unknown Venipuncture / Unknown 01/04/2025 10:22 AM EDT 01/04/2025 10:22 AM EDT us Luis Alberto Marte NP LAB BLOOD ORDERABLES Final Resul t [facility] [address] [place] [address], * Lipid panel with reflex to direct [...] AM EST [facility] Blood Venous blood specimen / Unknown Venipuncture / Unknown 04/22/2024 8:08 AM EST 04/22/2024 8:08 AM EST Angélica WHITFIELD LAB BLOOD ORDERABLES Final Re sult [facility] [address] [place] [address], [place] [phone] * Falls Risk Assessment (05/16/2023) [facility] Falls Risk Assessment Abstracted [place] Provider HEALTH MAINTENANCE Final Result * DXA [...] (World Health Organization Fracture Risk Assessment) [facility] Department of Internal Medicine recommends [...] screening schedule based on canelo Ryder., [facility] July 04, 2011 for patients with osteopenia [...] (World Health Organization Fracture Risk Assessment) [facility] Department of Internal Medicine recommendsusing [...] alternative screening schedule based on canelo Ryder., NEJMJanuary 2011 for patients with osteopenia (based on hip BMD T-score) is as follows: * advanced osteopenia (T scores -2.00 to -2.49), BMD testing every year * moderate osteopenia (T scores -1.50 to -1.99), BMD testing every 5years mild osteopenia or normal BMD (T scores -1.50 and higher), BMD testingevery [address] [facility] DXA PROCEDURES Final Result from Last 3 Months or Most Recently Relevant to Health Maintenance Insurance MEDICARE [facility] Advance Directives Documents on File Type Date Recorded Patient Associate Director Of Biostatistics Expl anation Health Care Decision (hx) 08/22/2023 [...] currently active code status orders. Care Teams Division Head Relationship Specialty Start Date End Date Daniel Yoon MD [address] [place] [phone] PCP - General Internal Medicine 04/30/24
[2025-03-08 18:49] VITALS: BP 130/49; PULSE 91; RESP 14; TEMP 36.3; O2SAT 94
--- NOTE | 2025-03-08 18:52 | PM.IMHP ---
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 She presents with several days of increased congestion and productive cough. She denies fever or chills. She recently saw her treater (Dr. Brown), who obtained a sputum culture on 03/03/25. The culture has now resulted as Pseudomonas aeruginosa, sensitive to ciprofloxacin and Meropenem. She was instructed to come to the ED for IV antibiotics. [facility] Medical History Aspergilloma Chronic respiratory failure with hypoxia Pseudomonas respiratory infection Exacerbation of bronchiectasis due to infection Lung mass Pneumonitis Nontuberculous mycobacterial disease of lung GERD (gastroesophageal reflux disease) History of diverticulitis Hyperlipidemia HTN (hypertension) Anxiety Supplemental oxygen dependent Pneumonia Afib 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 Pulmonary nodules COPD (chronic obstructive pulmonary disease) Bronchiectasis Surgical History Hx of colonoscopy History of bronchoscopy History of appendectomy Social History Household Members: Other Household Members Other:: alone [facility] Are you a primary acute care surgeon to a significant other at home: No Do you presently have visiting nurse or other home services: No Alcohol intake: never Patient Tobacco Use Status: Former Tobacco user Tobacco use type: Cigarette Years Smoked: 35 Second Hand Smoke Exposure: No Advance Directives: Yes Advance Directives on File: Yes Advance Directives Date on File: 01/31/22 Do you have a plan to hurt others: No Plan service: No Current occupational status: retired Meds Allergies Allergy/AdvReac Type Severity Reaction Status Date / Time No Known Allergies Allergy Verified 03/08/25 12:46 Home Medications ?Medication ?Instructions ?Recorded ?Confirmed ?Last Taken ?Type apixaban 5 mg tablet (Eliquis) 5 mg PO BID 07/03/20 03/08/25 03/08/25 History calcium carbonate (Calcium 600) 600 mg PO DAILY 07/03/20 03/08/25 03/08/25 History coenzyme Q10 400 mg capsule 400 mg PO DAILY 07/03/20 03/08/25 03/08/25 History lorazepam 0.5 mg tablet 0.5 mg PO Q6H PRN Anxiety 07/03/20 03/08/25 11/10/22 History sotalol 80 mg tablet 80 mg PO BID 07/03/20 03/08/25 03/08/25 History vit 1 cap PO BID 07/03/20 03/08/25 03/08/25 History C,E,zinc,Vg-gcwai-3-lutein-zeaxanthin 250 mg-2.5 mg-0.5 mg capsule zolpidem 5 mg tablet (Ambien) 5 mg PO BEDTIME PRN Sleep 07/03/20 03/08/25 09/26/22 History Oxygen Home Use 07/09/22 Unknown History alendronate 70 mg tablet 70 mg PO SA 07/09/22 03/08/25 03/05/25 History nebulizers 07/09/22 Unknown History Lactobacillus rhamnosus GG 10 1 cap PO DAILY 09/27/22 03/08/25 03/08/25 History billion cell capsule (Culturelle) magnesium oxide 400 mg PO BEDTIME 09/27/22 03/08/25 03/07/25 History potassium chloride 20 mEq 10 meq PO DAILY 09/27/22 03/08/25 03/08/25 History tablet,extended release(part/cryst) acetaminophen 500 mg tablet 1,000 mg PO QID PRN Pain 05/05/23 03/08/25 Unknown History cholecalciferol (vitamin D3) 50 50 mcg PO DAILY 05/05/23 03/08/25 03/08/25 History mcg (2,000 unit) tablet d-mannose 500 mg capsule 1,500 mg PO DAILY 05/05/23 03/08/25 03/08/25 History melatonin 5 mg tablet 5 mg PO BEDTIME 05/05/23 03/08/25 03/07/25 History omega 3 350 mg-dha 235 mg-epa 90 1 cap PO DAILY 05/05/23 03/08/25 03/08/25 History mg-fish oil 597 mg capsule,delay rel ([place]-3) polyethylene glycol 3350 17 gram 17 g PO DAILY PRN Constipation 05/05/23 03/08/25 Unknown History oral powder packet (Miralax) ezetimibe 10 mg tablet (Zetia) 10 mg PO DAILY 12/30/23 03/08/25 03/08/25 History evolocumab 140 mg/mL subcutaneous 140 mg subcut Q2W 04/14/24 03/08/25 03/05/25 History syringe (Repatha Syringe) budesonide 0.5 mg/2 mL suspension 0.5 mg inhalation DAILY PRN 03/08/25 03/08/25 Unknown History for nebulization Shortness Of Breath Or Wh fluticasone propionate 50 2 spray intranasal DAILY PRN Nasal 03/08/25 03/08/25 Unknown History mcg/actuation nasal Congestion spray,suspension ipratropium 0.5 mg-albuterol 3 mg 3 ml inhalation TID PRN Shortness 03/08/25 03/08/25 Unknown History (2.5 mg base)/3 mL nebulization Of Breath Or Wheezing soln omeprazole 40 mg capsule,delayed 40 mg PO DAILY@1630 03/08/25 03/08/25 03/07/25 History release Physical Exam Vital Signs and Narrative: Vital Signs: Last Vital Signs Temp 97.4 F 03/08/25 18:49 Pulse 91 03/08/25 18:49 Resp 14 03/08/25 18:49 BP 130/49 L 03/08/25 18:49 Pulse Ox 94 03/08/25 18:49 O2 Del Method Nasal Cannula 03/08/25 18:49 O2 Flow Rate 2 03/08/25 18:49 Oxygen Flow Rate 2 03/08/25 12:45 BMI result Body Mass Index 20.1 Const: Other: General:?Alert, in no acute distress HEENT:?Oropharynx clear, no tonsillar exudate Neck:?No lymphadenopathy Lungs:? scattered rhonchi, no accessory muscle use Cardiac:?Regular rate and rhythm, pacemaker present, no murmurs Abdomen:?Soft, non-tender, no organomegaly Extremities:?No edema Neuro:?No focal deficits, fully alert Skin:?No rash Results Labs 03/08/25 13:06 03/08/25 13:06 Labs: Laboratory Results - last 24 hr 03/08/25 13:06 MCV 90.8 MCH 30.4 MCHC 33.4 RDW 13.4 Plt Count 432 H MPV 8.7 L Immature Gran % (Auto) 0.6 H Neut % (Auto) 62.9 Lymph % (Auto) 24.0 Oliver % (Auto) 11.1 H Eos % (Auto) 0.9 Baso % (Auto) 0.5 Lymph # (Auto) 2.5 [place] # (Auto) 1.1 Eos # (Auto) 0.1 Baso # (Auto) 0.1 Abs Immat Gran (auto) 0.06 H Absolute Neuts (auto) 6.5 Absolute Nucleated RBC 0.000 Nucleated RBC % (auto) 0.0 Anion Gap 15 Estim Creat Clear Calc 55.9 Estimated GFR > 60 Random Glucose 106 Lactic Acid 1.0 Calcium 10.4 H Magnesium 1.7 Total Bilirubin 0.2 AST 23 ALT 16 Alkaline Phosphatase 92 Total Protein 7.9 Albumin 4.0 Imaging Radiologist's Impressions: Impressions Chest X-Ray 03/08/25 13:10 IMPRESSION: COPD emphysematous type changes with the likely superimposed acute small airway inflammatory process. 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 She presents with several days of increased congestion and productive cough. She denies fever or chills. She recently saw her treater (Dr. Brown), who obtained a sputum culture on 03/03/25. The culture has now resulted as Pseudomonas aeruginosa, sensitive to ciprofloxacin and cefepime. She was instructed to come to the ED for IV antibiotics. Acute COPD exacerbation with superimposed Pseudomonas aeruginosa infection (sensitive to cipro/meropenem): Currently stable on 2L O2, no hypoxia or respiratory distress. Continue IV antibiotics with meropnen, will need picc line for IV infusion at home, unable to get Cipro d/t high risk for Qt prolongation with sotalol Continue IV solumedrol for COPD exacerbation. Monitor respiratory status, O2 requirements, and for signs of clinical deterioration. Repeat sputum cultures if no improvement. Pulmonary hygiene: chest physiotherapy, incentive spirometry. IV solumedrol h/o of AFIB, continue sotalol and Eliquis DVT prophylaxis: eliquis DNR/DNi Quality Stroke Does the patient have a stroke diagnosis?: No VTE Prior VTE?: No VTE Risk Level:: Medical - moderate - high VTE Device Contraindication: Treatment Not Indicated VTE Drug Contraindication: N/A - Med Ordered
--- NOTE | 2025-03-08 19:27 | PHA.MEDREC ---
Addendum entered by João Ellis [facility] 03/08/25 20:08: med rec reviewed Original Note: Pharmacy Consult ? Medication Reconciliation Pharmacy has completed the medication reconciliation. Spoke with pt and she confirmed her medications. Pt confirmed she: is taking Alendronate on and took it last 03/05, takes Repatha Q2W and states she last took it 03/05, takes Rifampin MoWe and took it last 03/07 and is taking her Omeprazole daily@1630. Pt confirmed she is taking Tobramycin and she has 2 doses left (1 dose tonight and 1 dose tomorrow morning).
[2025-03-08 20:47] VITALS: BP 112/43; PULSE 89; RESP 285; O2SAT 92
[2025-03-08 22:21] VITALS: BMI 19.4
--- NOTE | 2025-03-08 23:20 | HO.SKINPHOTO ---
Location: left forearm scabbed skin tear
[2025-03-08 23:25] VITALS: BP 128/59; PULSE 101; RESP 18; TEMP 36.1; O2SAT 93
[2025-03-09] VITALS (7 sets, daily range): BP systolic 108–136; BP diastolic 53–63; PULSE 72–90; RESP 16–20; TEMP 36.1–36.8; O2SAT 90–97
[2025-03-09] MEDS: 0.9 % Sodium Chloride Flush 3 ML SYRINGE IVFLUSH (00:45)
--- NOTE | 2025-03-09 08:02 | P.PNIM_ITS ---
Subjective Subjective Date of Service: 03/09/25 Interval History: f/u on copd/bronchiectasis exacerbation with pseudomonas in the sputurm doing fine, no sob Physical Exam 2 Vital Signs: Vital Signs: Last Vital Signs Temp 97.6 F 03/09/25 07:52 Pulse 72 03/09/25 07:52 Resp 18 03/09/25 07:52 BP 134/58 L 03/09/25 07:52 Pulse Ox 96 03/09/25 07:52 O2 Del Method Nasal Cannula 03/09/25 07:52 O2 Flow Rate 2 03/09/25 07:52 Oxygen Flow Rate 2 03/08/25 12:45 BMI result Body Mass Index 19.4 Const: Other: General: AO X 3, no acute distress Resp: CTA bilateral CVS: S1,S2,RRR, no arielle GI: +BS, NT, no distention Skin: No rash Neuro: motor grossly intact Psych: appropriate affect Objective Data Active Medications Acetaminophen (Acetaminophen 325 Mg Tablet) 650 mg PO Q6H PRN PRN Reason: Pain, Mild 1-3,fever,headache Al Hydroxide/Mg Hydroxide (Magnesium Hydrox/Alum Hydrox 30 Ml Oral.Susp) 30 ml PO Q4H PRN PRN Reason: Heartburn Apixaban (Apixaban 5 Mg Tablet) 5 mg PO BID [facility] Last Admin: 03/08/25 20:44 Dose: 5 mg Documented By: FAITH-MATTE Benzonatate (Benzonatate 100 Mg Capsule) 100 mg PO TID PRN PRN Reason: Cough Calcium Carbonate (Calcium Carbonate 750 Mg Tab.Chew) 750 mg PO Q4H PRN PRN Reason: Heartburn Lorazepam (Lorazepam 0.5 Mg Tablet) 0.5 mg PO DAILY PRN PRN Reason: Anxiety Last Admin: 03/09/25 00:36 Dose: 0.5 mg Documented By: MASHA Magnesium Hydroxide (Milk Of Magnesia 30 Ml Oral.Susp) 30 ml PO DAILY PRN PRN Reason: Constipation Magnesium Oxide (Magnesium Oxide 400 Mg Tablet) 400 mg PO BEDTIME [facility] Last Admin: 03/09/25 00:35 Dose: 400 mg Documented By: MASHA Comments: new admit Melatonin (Melatonin 3 Mg Tablet) 6 mg PO BEDTIME PRN PRN Reason: Insomnia Ondansetron HCl (Ondansetron Hcl 4 Mg/2 Ml Vial) 4 mg IVPUSH Q8H PRN PRN Reason: Nausea and Vomiting Polyethylene Glycol (Polyethylene Glycol 3350 17 Gm Powd.Pack) 17 gm PO DAILY PRN PRN Reason: Constipation Sodium Chloride (0.9 % Sodium Chloride Flush 3 Ml Syringe) 3 ml IVFLUSH QSHIFT [facility] Last Admin: 03/09/25 00:45 Dose: 3 ml Documented By: MASHA Sotalol HCl (Sotalol Hcl 80 Mg Tablet) 80 mg PO BID [facility] Last Admin: 03/09/25 00:36 Dose: 80 mg Documented By: MASHA Zolpidem Tartrate (Zolpidem Tartrate 5 Mg Tablet) 5 mg PO BEDTIME PRN PRN Reason: Sleep Last Admin: 03/09/25 00:36 Dose: 5 mg Documented By: MASHA Labs 03/08/25 13:06 03/08/25 13:06 Labs: Laboratory Results - last 24 hr 03/08/25 13:06 MCV 90.8 MCH 30.4 MCHC 33.4 RDW 13.4 Plt Count 432 H MPV 8.7 L Immature Gran % (Auto) 0.6 H Neut % (Auto) 62.9 Lymph % (Auto) 24.0 [place] % (Auto) 11.1 H Eos % (Auto) 0.9 Baso % (Auto) 0.5 Lymph # (Auto) 2.5 [place] # (Auto) 1.1 Eos # (Auto) 0.1 Baso # (Auto) 0.1 Abs Immat Gran (auto) 0.06 H Absolute Neuts (auto) 6.5 Absolute Nucleated RBC 0.000 Nucleated RBC % (auto) 0.0 Anion Gap 15 Estim Creat Clear Calc 55.9 Estimated GFR > 60 Random Glucose 106 Lactic Acid 1.0 Calcium 10.4 H Magnesium 1.7 Total Bilirubin 0.2 AST 23 ALT 16 Alkaline Phosphatase 92 Total Protein 7.9 Albumin 4.0 Assessment and Plan (1) COPD (chronic obstructive pulmonary disease): Status: Acute (2) Positive sputum culture for Pseudomonas: Status: Acute Plan The patient is an 84-year-old female with a history of Mycobacterium avium- intracellulare (CHEMO) infection, COPD on supplemental oxygen, tracheobronchomalacia, bronchiectasis, and prior infection with multidrug- resistant Stenotrophomonas maltophilia. She presents with several days of increased congestion and productive cough. She denies fever or chills. She recently saw her communications administrator (Dr. Brown), who obtained a sputum culture on 03/03/25. The culture has now resulted as Pseudomonas aeruginosa, sensitive to ciprofloxacin and cefepime. She was instructed to come to the ED for IV antibiotics. Acute COPD exacerbation with superimposed Pseudomonas aeruginosa infection (sensitive to cipro/meropenem): Currently stable on 2L O2, no hypoxia or respiratory distress. Continue IV antibiotics with meropnen, will need picc line for IV infusion at home, unable to get Cipro d/t high risk for Qt prolongation with sotalol Continue IV solumedrol for COPD exacerbation. Monitor respiratory status, O2 requirements, and for signs of clinical deterioration. Repeat sputum cultures if no improvement. Pulmonary hygiene: chest physiotherapy, incentive spirometry. IV solumedrol h/o of AFIB, continue sotalol and Eliquis DVT prophylaxis: eliquis DNR/DNi Dispo: home with IV Abx if PICC line is established Quality Stroke Does the patient have a stroke diagnosis?: No VTE Prior VTE?: No VTE Risk Level:: Medical - moderate - high VTE Device Contraindication: Treatment Not Indicated VTE Drug Contraindication: N/A - Med Ordered
[2025-03-09 09:10] LABS: Hematocrit 36.8 % (37.0-47.0); Hemoglobin 12.6 g/dl (12.0-16.0); Mean Corpuscular HGB Conc 34.2 g/dl (31.0-35.0); Mean Corpuscular Hemoglobin 31.0 pg (27.0-33.0); Mean Corpuscular Volume 90.6 fL (80.0-98.0); NRBC Abs Auto 0.000 X10*3/uL (0.0-0.012); NRBC Pct Auto 0.0 /100WBC (0.0-0.2); Platelet Count 376 X10*3/uL (160-400); Red Blood Count 4.06 X10*6/uL (4.20-5.50); White Blood Count 12.9 X10*3/uL (4.8-10.8)
[2025-03-09] MEDS: Calcium Oyster Shell Elemental 500 MG TABLET PO (09:18)
[2025-03-09] MEDS: Potassium Chloride ER 10 MEQ TABLET.ER PO (09:19)
[2025-03-09 09:23] LABS: Anion Gap 10 (12-20); Blood Urea Nitrogen 16 mg/dL (9-16); Calcium 9.7 mg/dL (8.4-10.2); Carbon Dioxide 31 mmol/L (22-29); Chloride 102 mmol/L (96-108); Creatinine Clr Calc Pharmacy 56.5; Estimated Glomerular Filt Rate > 60; Potassium 4.1 mmol/L (3.3-5.1); Sodium 139 mmol/L (135-145)
--- NOTE | 2025-03-09 09:36 | MHC.CM.PN ---
PT LIVES ALONE HAS OWN RIDE HOME HAS HOME O2 NO OTHER PREADMISSION SERVICES DC PLAN HOME N/S
--- NOTE | 2025-03-09 11:31 | HO.WOUND ---
Wound Consult: Initial 84yr old? [place] [facility] - See progress notes and H&P for detailed history.? Wound consult placed for Left Forearm Skin Tear.? Patient agreeable to assessment and photo documentation.? Patient reports the site is approximately two weeks old and is due to hitting her arm on something at home. She reports she is on blood thinners and her wounds bleed and are slow to heal. The site was assessed to be a stable thickened black scab no active drainage noted. The patient prefers a bandaid in place at this time - recommend continue with bandaid to keep covered and stable until healed. Should wound open reconsult wound care nurse.
[2025-03-09] MEDS: SODIUM CHLORIDE 7% 1 EACH INHALE (11:45)
[2025-03-09] MEDS: Fluticasone/Umeclidinium/Vilanterol 200/62.5/25 BLST.W.DEV 1 PUFF INHALE (11:46)
[2025-03-09] MEDS: Albuterol/Iprat 2.5/0.5MG 3 ML AMPUL.NEB INHALE (11:51)
--- NOTE | 2025-03-09 13:44 | MHC.CM.PN ---
Patient will require 3 wks meropenem on dc. [facility] RN completed teach and obtained orders. Dr. Brown will follow outpatient.
[2025-03-09] MEDS: Albuterol Sulfate (0.083%) 2.5 MG/3 ML VIAL.NEB INHALE (20:00)
[2025-03-10] MEDS: 0.9 % Sodium Chloride Flush 3 ML SYRINGE IVFLUSH ×3 (00:35→14:28)
[2025-03-10 07:08] LABS: Hematocrit 33.3 % (37.0-47.0); Hemoglobin 11.4 g/dl (12.0-16.0); Mean Corpuscular HGB Conc 34.2 g/dl (31.0-35.0); Mean Corpuscular Hemoglobin 30.9 pg (27.0-33.0); Mean Corpuscular Volume 90.2 fL (80.0-98.0); NRBC Abs Auto 0.000 X10*3/uL (0.0-0.012); NRBC Pct Auto 0.0 /100WBC (0.0-0.2); Platelet Count 367 X10*3/uL (160-400); Red Blood Count 3.69 X10*6/uL (4.20-5.50); White Blood Count 11.0 X10*3/uL (4.8-10.8)
[2025-03-10 07:34] VITALS: BP 152/68; PULSE 64; RESP 18; TEMP 36.6; O2SAT 96
[2025-03-10] MEDS: Albuterol Sulfate (0.083%) 2.5 MG/3 ML VIAL.NEB INHALE (07:44)
[2025-03-10] MEDS: SODIUM CHLORIDE 7% 1 EACH INHALE (07:44)
[2025-03-10] MEDS: Fluticasone/Umeclidinium/Vilanterol 200/62.5/25 BLST.W.DEV 1 PUFF INHALE (07:44)
[2025-03-10 07:48] VITALS: PULSE 63; RESP 18; O2SAT 97
[2025-03-10] MEDS: Potassium Chloride ER 10 MEQ TABLET.ER PO (08:26)
[2025-03-10] MEDS: Calcium Oyster Shell Elemental 500 MG TABLET PO (08:26)
--- NOTE | 2025-03-10 08:45 | HO.PM.IMPN ---
Subjective Subjective Date of Service: 03/10/25 Interval History: No new symptoms Physical Exam Vital Signs: Vital Signs: Last Vital Signs Temp 97.8 F 03/10/25 07:34 Pulse 63 03/10/25 07:48 Resp 18 03/10/25 07:48 BP 152/68 H 03/10/25 07:34 Pulse Ox 96 03/10/25 07:34 O2 Del Method Nasal Cannula 03/10/25 07:34 O2 Flow Rate 2 03/10/25 07:34 Oxygen Flow Rate 2 03/08/25 12:45 BMI result Body Mass Index 19.4 Const: Other: General: AO X 3, no acute distress Resp: CTA bilateral CVS: S1,S2,RRR, no arielle GI: +BS, NT, no distention Skin: No rash Neuro: motor grossly intact Psych: appropriate affect Objective Data Active Medications Acetaminophen (Acetaminophen 325 Mg Tablet) 650 mg PO Q6H PRN PRN Reason: Pain, Mild 1-3,fever,headache Al Hydroxide/Mg Hydroxide (Magnesium Hydrox/Alum Hydrox 30 Ml Oral.Susp) 30 ml PO Q4H PRN PRN Reason: Heartburn Albuterol Sulfate (Albuterol Sulfate 90 Mcg 8 Gm Inhaler) 2 puff INHALE Q6H PRN PRN Reason: for wheezing Albuterol Sulfate (Albuterol Sulfate (0.083%) 2.5 Mg/3 Ml Vial.Neb) 2.5 mg INHALE RQ6H WHILE AWAKE [facility] Last Admin: 03/10/25 07:44 Dose: 2.5 mg Documented By: RANGEL Albuterol/Ipratropium (Albuterol/Iprat 2.5/0.5mg 3 Ml Ampul.Neb) 3 ml INHALE TID PRN PRN Reason: Shortness Of Breath Or Wheezing Last Admin: 03/09/25 11:51 Dose: 3 ml Documented By: RANGEL Apixaban (Apixaban 5 Mg Tablet) 5 mg PO BID [facility] Last Admin: 03/10/25 08:26 Dose: 5 mg Documented By: JOHANNY Benzonatate (Benzonatate 100 Mg Capsule) 100 mg PO TID PRN PRN Reason: Cough Budesonide (Budesonide 0.5 Mg/2 Ml Ampul.Neb) 0.5 mg INHALE RBID [facility] Last Admin: 03/10/25 07:44 Dose: 0.5 mg Documented By: RANGEL Calcium Carbonate (Calcium Carbonate 750 Mg Tab.Chew) 750 mg PO Q4H PRN PRN Reason: Heartburn Calcium Carbonate (Calcium Oyster Shell Elemental 500 Mg Tablet) 500 mg PO DAILY [facility] Last Admin: 03/10/25 08:26 Dose: 500 mg Documented By: JOHANNY Doxycycline Monohydrate (Doxycycline Monohydrate 100 Mg Capsule) 100 mg PO Q12H [facility] Last Admin: 03/10/25 08:26 Dose: 100 mg Documented By: JOHANNY Ezetimibe (Ezetimibe 10 Mg Tablet) 10 mg PO DAILY [facility] Last Admin: 03/10/25 08:26 Dose: 10 mg Documented By: JOHANNY Fluticasone Propionate (Fluticasone Propionate Nasal 16 Gm [place]) 2 spray NOSTRIL-B DAILY PRN PRN Reason: Nasal Congestion Fluticasone/Umeclidinium/Vilanterol (Fluticasone/Umeclidinium/Vilanterol 200/62.5/25 Blst.W.Dev) 1 puff INHALE RDAILY [facility] Last Admin: 03/10/25 07:44 Dose: 1 puff Documented By: RANGEL Ipratropium [place] (Ipratropium [place] Octavio 0.06 % 15 Ml [place]) 2 spray NOSTRIL-B TID PRN PRN Reason: allergy symptoms Lorazepam (Lorazepam 0.5 Mg Tablet) 0.5 mg PO DAILY PRN PRN Reason: Anxiety Last Admin: 03/09/25 22:35 Dose: 0.5 mg Documented By: JANETH Comments: approved to administer now Magnesium Hydroxide (Milk Of Magnesia 30 Ml Oral.Susp) 30 ml PO DAILY PRN PRN Reason: Constipation Magnesium Oxide (Magnesium Oxide 400 Mg Tablet) 400 mg PO BEDTIME [facility] Last Admin: 03/09/25 20:54 Dose: 400 mg Documented By: JANTEH Melatonin (Melatonin 3 Mg Tablet) 6 mg PO BEDTIME [facility] Last Admin: 03/09/25 20:55 Dose: Not Given Documented By: JANETH Non-Admin Reason: Patient Refused Meropenem (Meropenem 1 Gm Vial) 1 gm IVPUSH Q8H [facility] Last Admin: 03/10/25 00:34 Dose: 1 gm Documented By: JANETH Methylprednisolone Sodium Succinate (Methylprednisolone Sod Succ 40 Mg/Ml Vial) 20 mg IVPUSH Q12H [facility] Last Admin: 03/09/25 21:53 Dose: 20 mg Documented By: JANETH Metoclopramide HCl (Metoclopramide Hcl 5 Mg Tablet) 5 mg PO BID PRN PRN Reason: Nausea and Vomiting Pt Own (Sodium Chloride 7 % Solution For Nebulization) 1 inhalation INHALE RBID [facility] Last Admin: 03/10/25 07:44 Dose: 1 inhalation Documented By: RANGEL Non-Formulary Medication (Tobramycin In 0.225 % Nacl) 5 ml INHALE BID [facility] Omeprazole (Omeprazole 40 Mg Capsule.Dr) 40 mg PO DAILY@1630 [facility] Last Admin: 03/09/25 16:28 Dose: 40 mg Documented By: OSVALDO Ondansetron HCl (Ondansetron Hcl 4 Mg/2 Ml Vial) 4 mg IVPUSH Q8H PRN PRN Reason: Nausea and Vomiting Polyethylene Glycol (Polyethylene Glycol 3350 17 Gm Powd.Pack) 17 gm PO DAILY PRN PRN Reason: Constipation Potassium Chloride (Potassium Chloride Er 10 Meq Tablet.Er) 10 meq PO DAILY [facility] Last Admin: 03/10/25 08:26 Dose: 10 meq Documented By: JOHANNY Rifampin (Rifampin 300 Mg Capsule) 300 mg PO MOWEFR [facility] Last Admin: 03/09/25 09:40 Dose: 300 mg Documented By: OSVALDO Sodium Chloride (0.9 % Sodium Chloride Flush 3 Ml Syringe) 3 ml IVFLUSH QSHIFT [facility] Last Admin: 03/10/25 00:35 Dose: 3 ml Documented By: JANETH Sotalol HCl (Sotalol Hcl 80 Mg Tablet) 80 mg PO BID [facility] Last Admin: 03/10/25 08:26 Dose: 80 mg Documented By: JOHANNY Vitamin D (Cholecalciferol (Vitamin D3) 25 Mcg Tablet) 50 mcg PO DAILY [facility] Last Admin: 03/10/25 08:26 Dose: 50 mcg Documented By: JOHANNY Zolpidem Tartrate (Zolpidem Tartrate 5 Mg Tablet) 5 mg PO BEDTIME PRN PRN Reason: Sleep Last Admin: 03/09/25 22:35 Dose: 5 mg Documented By: JANETH Labs 03/10/25 05:34 03/09/25 08:56 Labs: Laboratory Results - last 24 hr 03/09/25 03/10/25 08:56 05:34 MCV 90.6 90.2 MCH 31.0 30.9 MCHC 34.2 34.2 RDW 13.4 13.5 Plt Count 376 367 MPV 8.6 L 9.0 L Absolute Nucleated RBC 0.000 0.000 Nucleated RBC % (auto) 0.0 0.0 Anion Gap 10 L Estim Creat Clear Calc 56.5 Estimated GFR > 60 Random Glucose 95 Calcium 9.7 D Microbiology Microbiology Results: Microbiology 03/08/25 13:06 Blood Culture - Preliminary Blood - Venous No growth after 24 hours. 03/08/25 13:06 Blood Culture - Preliminary Blood - Venous No growth after 24 hours. 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 She presents with several days of increased congestion and productive cough. She denies fever or chills. She recently saw her middle school music teacher (Dr. Brown), who obtained a sputum culture on 03/03/25. The culture has now resulted as Pseudomonas aeruginosa, sensitive to ciprofloxacin and cefepime. She was instructed to come to the ED for IV antibiotics. Acute COPD exacerbation with superimposed Pseudomonas aeruginosa infection (sensitive to cipro/meropenem): Currently stable on 2L O2, no hypoxia or respiratory distress. Continue IV antibiotics with meropnen, will need picc line for IV infusion at home, unable to get Cipro d/t high risk for Qt prolongation with sotalol Continue IV solumedrol for COPD exacerbation. Monitor respiratory status, O2 requirements, and for signs of clinical deterioration. Repeat sputum cultures if no improvement. Pulmonary hygiene: chest physiotherapy, incentive spirometry. IV solumedrol h/o of AFIB, continue sotalol and Eliquis DVT prophylaxis: eliquis DNR/DNi Dispo: home with IV Abx if PICC line is established Quality Stroke Does the patient have a stroke diagnosis?: No VTE Prior VTE?: No VTE Risk Level:: Medical - moderate - high VTE Device Contraindication: Treatment Not Indicated VTE Drug Contraindication: N/A - Med Ordered
--- NOTE | 2025-03-10 08:50 | PM.DS ---
DS: Providers Provider Date of Service: 03/10/25 Date of admission: 03/08/25 17:04 Date of discharge: 03/10/25 Primary care physician: Daniel Yoon III, MD Consults: 03/08/25 22:49 Consult to Wound Care Routine Reason for consultation: LFA skin tear DS: Diagnosis Discharge Diagnosis (1) COPD (chronic obstructive pulmonary disease): Status: Inactive (2) Positive sputum culture for Pseudomonas: Status: Acute DS: Summary Hospital Course Hospital Course: admission hpi Chief Complaint: cough, congestion, sob The patient is an 84-year-old female with a history of Mycobacterium avium-intracellulare (CHEMO) infection, COPD on supplemental oxygen, tracheobronchomalacia, bronchiectasis, and 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 She presents with several days of increased congestion and productive cough. She denies fever or chills. She recently saw her manager administration (Dr. Brown), who obtained a sputum culture on 03/03/25. The culture has now resulted as Pseudomonas aeruginosa, sensitive to ciprofloxacin and Meropenem. She was instructed to come to the ED for IV antibiotics. hospital course: Patient was admitted for IV anti-pseudomoas antibiotica and for an arrangement for home infusion, since there was no po option given severe interaction with sotalol with quinolone. Her manager administration recommendds 3 weeks of IV Abx (meropenem) Time Attestation Discharge Coordination Time (in mins): 35 Quality: Safe Use of Opioids Does Pt have an Active Cancer Diagnosis on the Problem List?: No Quality: Stroke Does the patient have a stroke diagnosis?: No Physical Exam Vital Signs: Vital Signs: Last Vital Signs Temp 97.8 F 03/10/25 07:34 Pulse 63 03/10/25 07:48 Resp 18 03/10/25 07:48 BP 152/68 H 03/10/25 07:34 Pulse Ox 96 03/10/25 07:34 O2 Del Method Nasal Cannula 03/10/25 07:34 O2 Flow Rate 2 03/10/25 07:34 Oxygen Flow Rate 2 03/08/25 12:45 BMI result Body Mass Index 19.4 DS: Data Data Completed and Pending Completed studies during hospitalization [Text1]: Procedures Insertion of Infusion Device into Right Basilic Vein, Percutaneous Approach (11/20/23) Labs on day of discharge: Laboratory Results - last 24 hr 03/09/25 03/10/25 08:56 05:34 WBC 12.9 H 11.0 H RBC 4.06 L 3.69 L Hgb 12.6 11.4 L Hct 36.8 L 33.3 L MCV 90.6 90.2 MCH 31.0 30.9 MCHC 34.2 34.2 RDW 13.4 13.5 Plt Count 376 367 MPV 8.6 L 9.0 L Absolute Nucleated RBC 0.000 0.000 Nucleated RBC % (auto) 0.0 0.0 Sodium 139 Potassium 4.1 Chloride 102 Carbon Dioxide 31 H Anion Gap 10 L BUN 16 Creatinine 0.65 Estim Creat Clear Calc 56.5 Estimated GFR > 60 Random Glucose 95 Calcium 9.7 D Preliminary micro results at discharge 03/08/25 13:06 Blood Culture - Preliminary Blood - Venous No growth after 24 hours. 03/08/25 13:06 Blood Culture - Preliminary Blood - Venous No growth after 24 hours. Discharge Plan Discharge Anticipated Discharge Date/Time: 03/10/25 08:53 Patient Disposition: Home Health Service Discharge Diagnosis: copd exacerbation, acute on chronic bronchiectasis, pseudomonas lung infection, Referrals: [facility] [Outside] - 1 Day Daniel Yoon III, MD [Primary Care Provider, Medical] - 1 Week Discharge Medications: New meropenem 1 gram Recon Soln 1 g IVPUSH Q8H Qty: 57 0RF Continued albuterol sulfate 90 mcg/actuation HFA aerosol inhaler 2 puff PO Q6H PRN (Reason: for wheezing) Qty: 34 3RF ipratropium bromide 42 mcg (0.06 %) spray,non-aerosol 2 spray intranasal TID PRN (Reason: allergy symptoms) Qty: 15 6RF Rx Instructions: administer into each nostril doxycycline monohydrate 100 mg tablet 100 mg PO DAILY 30 Days Qty: 90 1RF sodium chloride 7 % solution for nebulization 1 inh inhalation BID Qty: 960 6RF tobramycin in 0.225 % NaCl 300 mg/5 mL solution for nebulization 5 ml inhalation BID Qty: 280 0RF potassium chloride 20 mEq tablet,ER particles/crystals 10 meq PO DAILY Culturelle 10 billion cell Capsule 1 cap PO DAILY magnesium oxide 400 mg magnesium Tablet 400 mg PO BEDTIME polyethylene glycol 3350 [Miralax] 17 gram Powder In Packet 17 g PO DAILY PRN (Reason: Constipation) acetaminophen 500 mg Tablet 1,000 mg PO QID PRN (Reason: Pain) melatonin 5 mg Tablet 5 mg PO BEDTIME cholecalciferol (vitamin D3) 50 mcg (2,000 unit) Tablet 50 mcg PO DAILY Doyle-3 350 mg-235 mg- 90 mg-597 mg Capsule,Delayed Release(Dr/Ec) 1 cap PO DAILY d-mannose 500 mg Capsule 1,500 mg PO DAILY omeprazole 40 mg capsule,delayed release(DR/EC) 40 mg PO DAILY@1630 ipratropium-albuterol 0.5 mg-3 mg(2.5 mg base)/3 mL solution for nebulization 3 ml inhalation TID PRN (Reason: Shortness Of Breath Or Wheezing) budesonide 0.5 mg/2 mL suspension for nebulization 0.5 mg inhalation DAILY PRN (Reason: Shortness Of Breath Or Wh) fluticasone propionate 50 mcg/actuation spray,suspension 2 spray intranasal DAILY PRN (Reason: Nasal Congestion) PreserVision AREDS-2 250-90-40-1 mg Capsule 1 tab PO BID sotalol 80 mg tablet 80 mg PO BID Eliquis 5 mg tablet 5 mg PO BID calcium carbonate [Calcium 600] 600 mg calcium (1,500 mg) tablet 600 mg PO DAILY zolpidem [Ambien] 5 mg tablet 5 mg PO BEDTIME PRN (Reason: Sleep) lorazepam 0.5 mg tablet 0.5 mg PO DAILY PRN (Reason: Anxiety) coenzyme Q10 400 mg capsule 400 mg PO DAILY alendronate 70 mg tablet 70 mg PO SA (DME) nebulizers [facility] See Rx Instructions .ROUTE Rx Instructions: As directed (DME) Oxygen Home Use Kit See Rx Instructions .ROUTE Rx Instructions: As directed metoclopramide HCl [Reglan] 5 mg tablet 5 mg PO BID PRN (Reason: nausea and vomiting) 30 Days Qty: 60 5RF ezetimibe [Zetia] 10 mg tablet 10 mg PO DAILY Repatha Syringe 140 mg/mL syringe 140 mg subcut Q2W No Action rifampin 300 mg capsule 300 mg PO MOWEFR 90 Days Qty: 39 3RF Trelegy Ellipta 200-62.5-25 mcg blister with device 1 inh inhalation DAILY Qty: 60 11RF Discharge Orders: Discharge Order (Routine); Ordered 03/10/25 Ordered By: Jeovanny Ricardo Diet: Advance to usual diet Activity on Discharge: As tolerated Stand Alone Forms: Patient Portal Discharge page Print Language: Hebrew Care Plan Goals: treatment and recovery of pseudomonas lung infiectioon Health Concerns: chronic bronchiectasis pseudomonas lung infection Plan of Treatment: IV mreopenem via home infusion for a total of 3 weeks follow up with Dr. Brown continue all other home medication Assessment: see above Discharge Date/Time: 03/10/25 15:46
--- NOTE | 2025-03-10 10:57 | PM.EVENT ---
Event Note Date of Service: 03/10/25 Event Note: This note is to confirm that a blood culture is not needed before placing a PICC line for this patient, who will be starting IV antibiotics at home. The patient has Pseudomonas found in their sputum, but there are no signs of a bloodstream infection?no fever, chills, or other symptoms suggesting they are systemically ill. It is reasonable to go ahead with the PICC line and home IV antibiotics without waiting for a blood culture. This is based on IDSA guidelines. Time Spent With Patient Time: Total time managing care of this patient today ____ minutes.
--- NOTE | 2025-03-10 12:40 | P.PICC_ITS ---
PICC Line Insertion NPICC Diagnosis: bronchriotases Indication: prison ABT Pertinent Labs: reviewed Technique: Following informed consent including risks, benefits and alternatives and using sterile technique including cap and mask, sterile gown, glove and drape, the right arm was prepped and draped in the usual sterile fashion of full barrier technique with G. Following completion of Gamaliel Protocol the skin and soft tissues were anesthetized with 1% Lidocaine plain. Using ultrasound guidance, right basilic vein access was obtained. Over an 0.018 wire through peel-away sheath, a 5fr double lumen PASV PICC line was positioned. Catheter length is 36cm internal length, ocm external length, for a total trimmed length of 36cm. The procedure was performed in [facility]. Tip verification was performed by Wilder Sargent with Sherlock 3CG. Tip located in SVC. Ultrasound was used to document vein patency and for needle entry. A formal ultrasound picture and cardiac rhythm strip was recorded. Vascular Apprentice Technician has released the line for use and it is currently dressed with a StatLock, Tegaderm, and CHG disc. Verification has been performed for blood return and line patency. Arm Circumference: 25cm Equipment: [employer] PowerPicc solo catheter with sherlock 3cg Catheter Type: 5fr double lumen PASV Lot #: [id number]
--- NOTE | 2025-03-10 13:50 | MHC.CM.PN ---
PT CLEARED TO DC HOME TODAY, SHE IS AWARE SHE WILL NEED A DOSE AT 2000 HOURS AND 0600 HOURS WHICH A VNA WILL NOT BE PRESENT FOR THE VNA WILL SEE HER TOMORROW FOR HER 1400 HOUR DOSE. 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
[2025-03-10 14:50] VITALS: BP 147/67; PULSE 80; RESP 18; TEMP 36.2; O2SAT 94
== END 2025-03-10 15:46 | disposition home health service (06) | DRG 192 ==
LOC: HO.ED 16:51 → HO.EDOVER 17:21 → HO.S3 21:04
PROVIDERS: Physician Assistant Medical; Admitting Provider Student in an Organized Health Care Education/Training Program; Emergency Provider Emergency Medicine; PCP Internal Medicine; Visit Provider Internal Medicine
DX: J47.1 Bronchiectasis with (acute) exacerbation (principal); I48.91 Unspecified atrial fibrillation; B96.5 Pseudomonas (aeruginosa) (mallei) (pseudomallei) as the cause of diseases classified elsewhere; Z66 Do not resuscitate; Z87.891 Personal history of nicotine dependence; Z99.81 Dependence on supplemental oxygen; Z79.01 Long term (current) use of anticoagulants; Z79.51 Long term (current) use of inhaled steroids; Z79.899 Other long term (current) drug therapy
CPT/HCPCS: 36415; 36573; 71046; 80048; 80053; 83605; 83735; 85025; 85027; 87040; 93005; 94640; 99285; C1751; J2185; J2919

== ENCOUNTER → 2025-03-08 12:48 | Outpatient (BNV) | payer MEDICARE, SELFPAY | PROVIDERS: PCP Internal Medicine; Visit Provider Radiology Diagnostic Radiology | DX: R05.9 Cough, unspecified (principal) | CPT/HCPCS: 71046 ==

== ENCOUNTER → 2025-03-08 16:47 | Outpatient (BNV) | payer MEDICARE, SELFPAY | PROVIDERS: Admitting Provider Student in an Organized Health Care Education/Training Program; Emergency Provider Emergency Medicine; PCP Internal Medicine; Visit Provider Internal Medicine Cardiovascular Disease | DX: I44.0 Atrioventricular block, first degree (principal); I25.2 Old myocardial infarction | CPT/HCPCS: 93010 ==

== ENCOUNTER → 2025-03-08 17:04 | Outpatient (BNV) | payer MEDICARE, SELFPAY | PROVIDERS: Admitting Provider Student in an Organized Health Care Education/Training Program; Emergency Provider Emergency Medicine; PCP Internal Medicine; Visit Provider Internal Medicine | DX: J44.9 Chronic obstructive pulmonary disease, unspecified (principal); R84.5 Abnormal microbiological findings in specimens from respiratory organs and thorax | CPT/HCPCS: 99223; 99232; 99499 ==

== ENCOUNTER 2025-03-15 14:01 | Outpatient (REF) | payer MEDICARE, SELFPAY ==
--- OUTSIDE RECORDS SUMMARY | 2025-03-15 15:26 | XMS_ITS | Encounter Summary ---
Author Organization [facility] Address [address] [place] [address] Care Team Providers Care Heel Brusher Name Role Phone Daniel Yoon MD Primary Care Provider [phone] Reason for Visit * Reason Onset Date Comments VNA 03/10/2025 Encounter Details Date Type Department Care Team (Late st Contact Info) Description 03/10/2025 Telephone Adult Medicine [address] [phone] Daniel Yoon MD [address] [place] [phone] Social History Tobacco Use Types Packs/Day Years [...] your loved ones. For example, child and adolescent psychologist or elderly care for an older adult? [...] Date Recorded What is your living situation? Unrecognized valu e 09/17/2024 Comments No Sex and Gender Information Value Date Recorded Sex Assigned at Female 12/23/2021 7:21 PM EDT Legal Sex Female 7:10 AM EST Gender Identity Female 12/23/2021 7:21 PM EDT Sexual Orientation Straight 02/02/2025 3: 10 PM EDT documented as of this encounter Progress Notes * Shalom Sequeira, SHAWNA - 03/10/2025 2:48 PM EDT [facility] the [facility] and IV VNA aware [facility] doctors don't manage or give orders for IV med and IV's * Dayna Andrade - 03/10/2025 1:22 PM EDT VNA CALL Which VNA office is calling? [facility] / Full name of caller: Tomasa The caller is VNA Intake Is the caller at the patients home?: no Reason for call: caller states VNA will be going out tomorrow for IV antibiotics per Pulmonary. Patient is currently in [facility] and will be getting discharged later today. FYI Does caller need an urgent call back? no Was CONTACT Telephone # obtained above?: yes Fax #: documented in this encounter Plan of Treatment Upcoming Encounters Date Type Department Care Team (Late st Contact Info) Description 04/04/2025 10:30 AM EDT Office Visit Adult Medicine [facility] - [address] [phone] Daniel Yoon MD [address] [place] [address] 04/11/2025 10:45 AM EDT Appointment [facility] - [address] [phone] 04/19/2025 3:20 PM EST Consult Gastroenterology - [address] [phone] Fide Laguerre MD [address] [place] [phone] documented as of this encounter Visit Diagnoses Not on filedocumented in this encounter Additional Health Concerns Assessment Noted Time PHQ-9 Depression Total Score: 0 09/18/19 10:10 AM EDT A fall risk assessment has been complete d for the patient 09/24/2024 11:07 AM EDT documented as of this encounter Care Teams Heel Brusher Relationship Specialty Start Date End Date Daniel Yoon MD [address] [place] [phone] PCP - General Internal Medicine 04/30/24 documented as of this encounter
--- OUTSIDE RECORDS SUMMARY | 2025-03-15 15:26 | XMS_ITS ---
Author Organization Patient Business Ser [facility] Address [address] [place] [address] Care Team Providers Care Dispatcher Motor Vehicle Name Role Phone Daniel Yoon MD Primary Care Provider [phone] Transitional Care Management Status:Ongoing (Active) Start date:03/10/2025 Enrollment date:03/10/2025 Enrollment reason:Identified using hospital discharge data Related social drivers of health:Housing Instability, Food Access & Nutrition, Access to Healthcare, Health Literacy, Financial Risk, Transportation, Social Isolation, Food Risk, Dependent Care, Education, Employment and Income, [place] [facility] Literacy, Living Situation Case Team Name Relationship Phone Alvina Lewis LPN(Responsible Staff) Employment Recruiter Continued Care and Services Coordination
--- OUTSIDE RECORDS SUMMARY | 2025-03-15 15:26 | XMS_ITS ---
Author Organization Patient Business Ser [facility] Address [address] [place] [address] Care Team Providers Care Testing Director Name Role Phone Daniel Yoon MD Primary Care Provider [phone] Chronic Care Management Status:Identified (Enrolling) Start date:03/11/2025 Enrollment reason:Referred by Care Team Related social drivers of health:Housing Instability, Food Access & Nutrition, Access to Healthcare, Health Literacy, Financial Risk, Transportation, Social Isolation, Food Risk, Dependent Care, Education, Employment and Income, [place] Health Literacy, Living Situation Case Team Name Relationship Phone Dorothea Ramirez RN(Responsible Staff) Care [employer] Continued Care and Services Coordination
--- OUTSIDE RECORDS SUMMARY | 2025-03-15 15:26 | XMS_ITS | Clinical Summary ---
Author Organization Patient Business Ser vice [facility] Address [address] [place] [address] Care Team Providers Care Pick Up Worker Name Role Phone Daniel Yoon MD Primary Care Provider [phone] Allergies No known active allergies Medications glucosamine/chond [...] CMS/HCC V28) 04/23/2024 Overview (04/23/2024): [place] with [facility] [place]. Assessment & Plan [...] as well. CHEMO (mycobacterium avium-int racellulare) infection ([facility] V24, [facility] V28) 10/01/2022 Assessment & Plan (09/24/2024 11:51 AM EDT): Carotid artery disease ([facility] V24) 08/24/2020 Overview (04/23/2024): Last Assessment & [...] right ICA. Gross hematuria 09/15/2017 Atrial flutter ([facility] V24, [facility] V28) 2016 Overview (05/07/2024): - Met Dr. [...] Rodarte's note from 2018 (not scanned into [facility]) - She even had a [...] Encounters Date Type Department Care Team Description 03/10/2025 Telephone Adult Medicine [address] [phone] Daniel Yoon MD 02/09/2025 1:28 PM EDT - 02/09/2025 11:59 PM EDT Hospital [facility] [address] [phone] Encounter for screening mammogram for malignant neoplasm of breast Discharge Disposition: Home or Self Care from Last 3 Months Immunizations Immunization Administration Dates Next Due Influenza trivalent, 0.5mL [...] Date Site/Laterality Comments APPENDECTOMY PROCEDURE:APPENDECTOMY APPENDECTOMY PROCEDURE: HI APPENDECTOMY TONSILLECTOMY PROCEDURE: HISTORICAL TONSILLECTOMY Medical History Medical History Date Comments Asthma DX:Asthma COPD (chronic obstructive pu lmonary disease) ([facility] V24, [facility] V28) DX:COPD (chronic o bstructive pulmonary disease) ([facility]) High blood pressure DX:High bloo d pressure Osteoporosis DX:Osteoporosis GERD (gastroesophageal reflux disease) DX:GERD (gastroesophageal reflux disease) COPD (chronic obstructive pu lmonary disease) ([facility] V24, [facility] V28) DX:COPD (chronic o bstructive pulmonary disease) ([facility]); COMMENT: dr mehta History of tobacco abuse [...] [facility]) 06/11/2017 DX:Atrial flutter ([facility]); COM MENT: On sotalol and eliquis; s/p [...] care for your loved ones. For example, director of early childhood or elderly care for an older adult? [...] 10:30 AM EDT Office [place] [facility] [place] - [address] [phone] Daniel Yoon MD [address] [place] [address] 04/11/2025 10:45 AM EDT Appointment [facility] - [address] [phone] 04/19/2025 3:20 PM EST Consult Gastroenterology - [address] [phone] Fide Laguerre MD [address] [place] [phone] Health Maintenance Due Date Last Done Comments [...] year. [facility]amm[facility] [address], [address] -------- FINAL REPORT -------- Dictated By: Erich Sheehan Dictated Date: 02/09/2025 15:05 ET Assigned Physician: Erich Sheehan Reviewed and Electronically Signed By: Erich Sheehan Signed Date: 02/09/2025 15:12 ET Workstation ID: [id number] Transcribed By: Self Edit Transcribed Date: 02/09/2025 15:05 ET Narrative 02/09/2025 3:12 PM EDT EXAM: SCREENING MAMMOGRAPHY, BILATERAL HISTORY: SCREENING. No additional history. COMPARISON: 08/04/23, 06/19/22, 06/19/21, 02/27/21 TECHNIQUE: Synthesized CC and MLO projections of each breast. Tomosynthesis of each breast in the CC and MLO projections. ADDITIONAL IMAGING: None Computer-aided detection was employed with the [employer] 3-D. TISSUE DENSITY: There are scattered areas [...] None Computer-aided detection was employed with the [employer] 3-D. TISSUE DENSITY: There are scattered [...] year. [facility]amm[facility] location[facility] [address], [address] -------- FINAL REPORT -------- Dictated By: Erich Sheehan Dictated Date: 02/09/2025 15:05 ET Assigned Physician: Erich Sheehna Reviewed and Electronically Signed By: Erich Sheehan Signed Date: 02/09/2025 15:12 ET Workstation ID: [id number] Transcribed By: Self Edit Transcribed Date: 02/09/2025 15:05 ET us Ami Fernandez HEATING ELEMENT BUILDER IMG BI PROCEDURES Final Resul t * Basic metabolic panel (01/04/2025 10:22 AM EDT) Sodium 135 133 - 145 mmol/L LAB CHEMISTRY METHOD 01/04/2025 1:57 PM EDT [facility] Potassium 4.4 3.5 - 5.5 mmol/L LAB CHEMISTRY METHOD 01/04/2025 1:57 PM EDT [facility] Chloride 101 96 - 110 mmol/L LAB CHEMISTRY METHOD 01/04/2025 1:57 PM EDT [facility] CO2 27 21 - 32 mmol/L LAB CHEMISTRY METHOD 01/04/2025 1:57 PM T [facility] Anion Gap 7 3 - 11 LAB CHEMISTRY METHOD 01/04/2025 1:57 PM EDT [facility] Glucose 96 70 - 100 mg/dL LAB CHEMISTRY METHOD 01/04/2025 1:57 PM EDT [facility] BUN 21 5 - 25 mg/dL LAB CHEMISTRY METHOD 01/04/2025 1:57 PM EDT [facility] Creatinine 0.85 0.50 - 1.10 mg/dL LAB CHEMISTRY METHOD 01/04/2025 1:57 PM EDT [facility] eGFR 68 >=60 mL/min/1. 73m2 LAB CHEMISTRY METHOD 01/04/2025 1:57 PM EDT [facility] Comment:Calculation based on the Chronic Kidney Disease Epidemiology Collaboration (CKD-EPI) equation refit without adjustment for race. BUN/Creatinine Ratio 24.7 LAB CHEMISTRY METHOD 01/04/2025 1:57 PM EDT [facility] Calcium 10.4 8.5 - 10.5 mg/dL LAB CHEMISTRY METHOD 01/04/2025 1:57 PM EDT [facility] Blood Venous blood specimen / Unknown Venipuncture / Unknown 01/04/2025 10:22 AM EDT 01/04/2025 10:22 AM EDT us Luis Alberto Marte NP LAB BLOOD ORDERABLES Final Resul t [facility] [address] [place] [address], * Lipid panel with reflex to direct LDL (04/22/2024 8:08 AM EST) Cholesterol 144 0 - 200 mg/dL LAB CHEMISTRY METHOD 04/22/2024 10:14 AM EST [facility] Triglycerides 101 0 - 150 mg/dL LAB CHEMISTRY METHOD 04/22/2024 10:14 AM EST [facility] HDL 68 >=40 mg/dL LAB CHEMISTRY METHOD 04/22/2024 10:14 AM EST [facility] LDL Calculated 56 0 - 100 mg/dL LAB CHEMISTRY METHOD 04/22/2024 10:14 AM EST [facility] VLDL Cholesterol Carlos 20.2 mg/dL LAB CHEMISTRY METHOD 04/22/2024 10:14 AM EST [facility] Non HDL Chol. (LDL+VLDL) 76 <145 mg/dL LAB CHEMISTRY METHOD 04/22/2024 10:14 AM EST [facility] Chol/HDL Ratio 2.1 0.0 - 4.4 LAB CHEMISTRY METHOD 04/22/2024 10:14 AM EST [facility] Blood Venous blood specimen / Unknown Venipuncture / Unknown 04/22/2024 8:08 AM EST 04/22/2024 8:08 AM EST Angélica WHITFIELD LAB BLOOD ORDERABLES Final Re sult [facility] [address] [place] [address], * Falls Risk Assessment (05/16/2023) [facility] Falls Risk Assessment Abstracted [facility] Provider HEALTH MAINTENANCE Final Result [...] (World Health Organization Fracture Risk Assessment) [facility] Department of Internal Medicine recommends using [...] alternative screening schedule based on canelo Ryder., [facility] July 04, 2011 for patients with [...] (World Health Organization Fracture Risk Assessment) [facility] Department of Internal Medicine recommendsusing National [...] alternative screening schedule based on canelo Ryder., [facility] for patients with osteopenia (based on hip BMD T-score) is as follows: * advanced osteopenia (T scores -2.00 to -2.49), BMD testing every year * moderate osteopenia (T scores -1.50 to -1.99), BMD testing every 5years mild osteopenia or normal BMD (T scores -1.50 and higher), BMD testingevery 15 years Ginger WHITFIELD [facility] DXA PROCEDURES Final Result from Last 3 Months or Most Recently Relevant to Health Maintenance Insurance MEDICARE [facility] Advance Directives Documents on File Type Date Recorded Patient Capacity Manager Expl anation Health Care Decision (hx) [...] currently active code status orders. Care Teams Pick Up Worker Relationship Specialty Start Date End Date Daniel Yoon MD [address] [place] [phone] PCP - General Internal Medicine 04/30/24
--- OUTSIDE RECORDS SUMMARY | 2025-03-15 15:26 | XMS_ITS | Clinical Summary ---
Author Organization [facility] Address [address] [place] [address] Care Team Providers Care Corporate Events Director Name Role Phone Daniel Yoon MD Primary Care Provider [phone] Allergies No known active allergies Medications Medication [...] age to complete this topic Care Teams Corporate Events Director Relationship Specialty Start Date End Date Daniel Yoon MD PCP - General Internal Medicine 04/03/22
[2025-03-15 15:32] LABS: Alanine Aminotransferase 17 U/L (0-31); Albumin Level 3.4 g/dL (3.5-5.0); Alkaline Phosphatase 76 U/L (39-117); Anion Gap 13 (12-20); Aspartate Amino Transferase 20 U/L (5-31); Blood Urea Nitrogen 18 mg/dL (9-16); Calcium 9.4 mg/dL (8.4-10.2); Carbon Dioxide 29 mmol/L (22-29); Chloride 102 mmol/L (96-108); Estimated Glomerular Filt Rate > 60; Potassium 4.5 mmol/L (3.3-5.1); Sodium 139 mmol/L (135-145); Total Protein 6.3 g/dL (6.5-8.0)
== END 2025-03-15 14:02 | disposition home or self-care (01) ==
LOC: HO.HVNA 14:01
PROVIDERS: Visit Provider Hospitalist
DX: R84.5 Abnormal microbiological findings in specimens from respiratory organs and thorax (principal)
CPT/HCPCS: 36415; 80053

== ENCOUNTER 2025-03-22 14:39 | Outpatient (REF) | payer MEDICARE, SELFPAY ==
[2025-03-22 15:38] LABS: Alanine Aminotransferase 14 U/L (0-31); Albumin Level 3.4 g/dL (3.5-5.0); Alkaline Phosphatase 76 U/L (39-117); Anion Gap 11 (12-20); Aspartate Amino Transferase 20 U/L (5-31); Blood Urea Nitrogen 18 mg/dL (9-16); Calcium 9.4 mg/dL (8.4-10.2); Carbon Dioxide 30 mmol/L (22-29); Chloride 103 mmol/L (96-108); Estimated Glomerular Filt Rate > 60; Potassium 4.2 mmol/L (3.3-5.1); Sodium 140 mmol/L (135-145); Total Protein 7.0 g/dL (6.5-8.0)
--- OUTSIDE RECORDS SUMMARY | 2025-03-22 17:57 | XMS_ITS | Clinical Summary ---
Author Organization Patient Business Ser vice [facility] Address [address] [place] [address] Care Team Providers Care Lodge Officer Name Role Phone Daniel Yoon MD Primary Care Provider [phone] Allergies No known active allergies Medications glucosamine/chond [...] CMS/HCC V28) 04/23/2024 Overview (04/23/2024): Follows with [facility] Pulm. Assessment & Plan (09/24/2024 11:51 AM [...] as well. CHEMO (mycobacterium avium-int racellulare) infection ([facility] V24, [facility] V28) 10/01/2022 Assessment & Plan (09/24/2024 11:51 AM EDT): Carotid artery disease ([facility] V24) 08/24/2020 Overview (04/23/2024): Last Assessment & [...] right ICA. Gross hematuria 09/15/2017 Atrial flutter ([facility] V24, [facility] V28) 2016 Overview (05/07/2024): - Met Dr. [...] Rodarte's note from 2018 (not scanned into [facility]) - She even had a 30-day [...] Care Team Description 03/10/2025 Telephone Adult Medicine [address] [phone] Daniel Yoon MD 02/09/2025 1:28 PM EDT - 02/09/2025 11:59 PM EDT [facility] [address] [phone] Encounter for screening mammogram for [...] Date Site/Laterality Comments APPENDECTOMY PROCEDURE:APPENDECTOMY APPENDECTOMY PROCEDURE: OR APPENDECTOMY TONSILLECTOMY PROCEDURE: HISTORICAL TONSILLECTOMY Medical History Medical History Date Comments Asthma DX:Asthma COPD (chronic obstructive pu lmonary disease) ([facility] V24, [facility] V28) DX:COPD (chronic o bstructive pulmonary disease) ([facility]) High blood pressure DX:High bloo d pressure Osteoporosis DX:Osteoporosis GERD (gastroesophageal reflux disease) DX:GERD (gastroesophageal reflux disease) COPD (chronic obstructive pu lmonary disease) ([facility] V24, [facility] V28) DX:COPD (chronic o bstructive pulmonary disease) ([facility]); COMMENT: dr mehta History of [...] [facility] V[facility]) 06/11/2017 DX:Atrial flutter ([facility]); COM MENT: On sotalol and eliquis; s/p [...] your loved ones. For example, child care associate or elderly care for an older adult? [...] EDT Office Visit [facility] - [address] [phone] Daniel Yoon MD [address] [place] [address] 04/11/2025 10:45 AM EDT Appointment Bone Density - [address] [phone] 04/19/2025 3:20 PM EST Consult Gastroenterology - [address] [phone] Fide Laguerre MD [address] [place] [id number] Health Maintenance Due Date Last Done Comments [...] on patient's age to complete this topic Goals Goal Patient Goal Type Associated Problems Recent Progress Patient-Stated? Author Pt will complete IV therapy without any adverse complications General No Dorothea Ramirez, RN Note: 03/18/25. Pt is managing her own IV therapy with oversight form Salena CARTER. 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 [facility] [address], [address] -------- FINAL REPORT -------- Dictated By: Erich Sheehan Dictated Date: 02/09/2025 15:05 ET Assigned Physician: Erich Sheehan Reviewed and Electronically Signed By: Erich Sheehan Signed Date: 02/09/2025 15:12 ET Workstation ID: [id number] Transcribed By: Self Edit Transcribed Date: 02/09/2025 15:05 ET Narrative 02/09/2025 3:12 PM EDT EXAM: SCREENING MAMMOGRAPHY, BILATERAL HISTORY: SCREENING. No additional history. COMPARISON: 08/04/23, 06/19/22, 06/19/21, 02/27/21 TECHNIQUE: Synthesized CC and MLO projections of each breast. Tomosynthesis of each breast in the CC and MLO projections. ADDITIONAL IMAGING: None Computer-aided detection was employed with the [employer] AI 3-D. TISSUE DENSITY: There are scattered [...] year. [facility]amm[facility] [address], [address] -------- FINAL REPORT -------- Dictated By: Erich Sheehan Dictated Date: 02/09/2025 15:05 ET Assigned Physician: Erich Sheehan Reviewed and Electronically Signed By: Erich Sheehan Signed Date: 02/09/2025 15:12 ET Workstation ID: [id number] Transcribed By: Self Edit Transcribed Date: 02/09/2025 15:05 ET us Ami Fernandez ELECTROPHONIC ENGINEER IMG BI PROCEDURES Final Resul t * Basic metabolic panel (01/04/2025 10:22 AM EDT) Sodium 135 133 - 145 mmol/L LAB CHEMISTRY METHOD 01/04/2025 1:57 PM EDT [facility] Potassium 4.4 3.5 - 5.5 mmol/L LAB CHEMISTRY METHOD 01/04/2025 1:57 PM EDT [facility] Chloride 101 96 - 110 mmol/L LAB CHEMISTRY METHOD 01/04/2025 1:57 PM EDT [facility] CO2 27 21 - 32 mmol/L LAB CHEMISTRY METHOD 01/04/2025 1:57 PM EDT [facility] Anion Gap 7 3 - 11 LAB CHEMISTRY METHOD 01/04/2025 1:57 PM EDT [facility] Glucose 96 70 - 100 mg/dL LAB CHEMISTRY METHOD 01/04/2025 1:57 PM EDT [facility] BUN 21 5 - 25 mg/dL LAB CHEMISTRY METHOD 01/04/2025 1:57 PM EDT [facility] Creatinine 0.85 0.50 - 1.10 mg/dL LAB CHEMISTRY METHOD 01/04/2025 1:57 PM EDT [facility] eGFR 68 >=60 mL/min/1. 73m2 LAB CHEMISTRY METHOD 01/04/2025 1:57 PM EDT [facility] Comment:Calculation based on the Chronic Kidney Disease Epidemiology Collaboration (CKD-EPI) equation refit without adjustment for race. BUN/Creatinine Ratio 24.7 LAB CHEMISTRY METHOD 01/04/2025 1:57 PM EDT [facility] Calcium 10.4 8.5 - 10.5 mg/dL LAB CHEMISTR[facility] Blood Venous blood specimen / Unknown Venipuncture / Unknown 01/04/2025 10:22 AM EDT 01/04/2025 10:22 AM EDT us Luis Alberto Marte NP LAB BLOOD ORDERABLES Final Resul t [facility] [address] [place] [address], * Lipid panel with reflex to direct LDL (04/22/2024 8:08 AM EST) Cholesterol 144 0 - 200 mg/dL LAB CHEMISTRY METHOD 04/22/2024 10:[address] [facility] Triglycerides 101 0 - 150 mg/dL LAB CHEMISTRY METHOD 04/22/2024 10:[address] [facility] HDL 68 >=40 mg/dL LAB CHEMISTRY METHOD 04/22/2024 10:[address] [facility] LDL Calculated 56 0 - 100 mg/dL LAB CHEMISTRY METHOD 04/22/2024 10:[address] [facility] VLDL Cholesterol Carlos 20.2 mg/dL LAB CHEMISTRY METHOD 04/22/2024 10:[address] [facility] Non HDL Chol. (LDL+VLDL) 76 <145 mg/dL LAB CHEMISTRY METHOD 04/22/2024 10:[address] [facility] Chol/HDL Ratio 2.1 0.0 - 4.4 LAB CHEMISTRY METHOD 04/22/2024 10:[address] [facility] Blood Venous blood specimen / Unknown Venipuncture / Unknown 04/22/2024 8:08 AM EST 04/22/2024 8:08 AM EST Angélica [place] LAB BLOOD ORDERABLES Final Re sult [facility] [address] [place] [address], * Falls Risk Assessment (05/16/2023) [facility] Falls Risk Assessment Abstracted [facility] Provider HEALTH MAINTENANCE Final Result [...] (World Health Organization Fracture Risk Assessment) The [facility] Department of Internal Medicine recommends using National [...] alternative screening schedule based on canelo Ryder., [facility] July 04, 2011 for patients with [...] (World Health Organization Fracture Risk Assessment) The [facility] Department of Internal Medicine recommendsusing National Osteoporosis [...] higher), BMD testingevery 15 years Ginger [place] [facility] DXA PROCEDURES Final Result from Last 3 Months or Most Recently Relevant to Health Maintenance Insurance MEDICARE [facility] Advance Directives Documents on File Type Date Recorded Patient Embedded Engineer Expl anation Health Care Decision (hx) 08/22/2023 [...] currently active code status orders. Care Teams Lodge Officer Relationship Specialty Start Date End Date Daniel Yoon MD [address] [place] [phone] PCP - General Internal Medicine 04/30/24
--- OUTSIDE RECORDS SUMMARY | 2025-03-22 17:57 | XMS_ITS | Clinical Summary ---
Author Organization [facility] Address [address] [place] [address] Care Team Providers Care Customer Counter Representative Name Role Phone Daniel Yoon MD Primary Care Provider [phone] Allergies No known active allergies Medications Medication [...] age to complete this topic Care Teams Customer Counter Representative Relationship Specialty Start Date End Date Daniel Yoon MD PCP - General Internal Medicine 04/03/22
--- OUTSIDE RECORDS SUMMARY | 2025-03-22 17:57 | XMS_ITS ---
Author Organization Patient Business Ser [facility] Address [address] [place] [address] Care Team Providers Care Deputy Controller Name Role Phone Daniel Yoon MD Primary Care Provider [phone] Transitional Care Management Status:Ongoing (Active) Start date:03/10/2025 Enrollment date:03/10/2025 Enrollment reason:Identified using hospital discharge data Related social drivers of health:Housing Instability, Food Access & Nutrition, Access to Healthcare, TH Health Literacy, Financial Risk, Transportation, Social Isolation, Food Risk Case Team Name Relationship Phone Alvina Lewis LPN(Responsible Staff) Family Assistant Continued Care and Services Coordination
--- OUTSIDE RECORDS SUMMARY | 2025-03-22 17:57 | XMS_ITS ---
Author Organization Patient Business Ser [facility] Address [address] [place] [address] Care Team Providers Care Medical Record Coder Name Role Phone Daniel Yoon MD Primary Care Provider [phone] Chronic Care Management Status:Ongoing (Active) Start date:03/11/2025 Enrollment date:03/18/2025 Enrollment reason:Referred by Care Team Case Team Name Relationship Phone Dorothea Ramirez RN(Responsible Staff) Care [facility] Continued Care and Services Coordination
== END 2025-03-22 14:40 | disposition home or self-care (01) ==
LOC: HO.HVNA 14:39
PROVIDERS: Visit Provider Hospitalist
DX: J15.1 Pneumonia due to Pseudomonas (principal); J44.1 Chronic obstructive pulmonary disease with (acute) exacerbation
CPT/HCPCS: 36415; 80053; 82248

== ENCOUNTER 2025-04-15 10:49 | Outpatient (AMB) | payer MEDICARE, SELFPAY ==
--- OUTSIDE RECORDS SUMMARY | 2025-04-11 10:20 | XMS_ITS | Encounter Summary ---
Author Organization [facility] Address [address] [place] [address] Care Team Providers Care Athletic Coordinator Name Role Phone Daniel Yoon MD Primary Care Provider [phone] Reason for Referral * Imaging (Routine) - Authorized Specialty Diagnoses / Procedures Referred By Contac t Referred To Contact Radiology Diagnoses Osteoporosis without current pathological fracture, unspecified osteoporosis type Procedures BD Bone Density DXA Axial Skeleton Daniel Yoon MD [address] [place] [address] Phone: tel: fax: [address] Phone: tel: Referral ID Status Reason Start Date Expiration Date V isits Requested Visits Authorized [id number] Authorized 09/24/2024 09/24/2025 1 1 Reason for Visit * Imaging (Routine) - Authorized Specialty Diagnoses / Procedures Referred By Contac t Referred To Contact Radiology Diagnoses Osteoporosis without current pathological fracture, unspecified osteoporosis type Procedures BD Bone Density DXA Axial Skeleton Daniel Yoon MD [address] [place] [address] Phone: tel: fax: [address] Phone: tel: Referral ID Status Reason Start Date Expiration Date V isits Requested Visits Authorized [id number] Authorized 09/24/2024 09/24/2025 1 1 Encounter Details Date Type Department Care Team (Latest Contact Info) Description 04/11/2025 10:20 AM EDT - 04/11/2025 11:59 PM EDT Hospital Encounter Bone Density - [address] [phone] Osteopenia, unspecified location Discharge Disposition: Home or Self Care Social History Tobacco Use Types Packs/Day Years [...] for your loved ones. For example, child adolescent psychiatrist or elderly care for an older adult? [...] PM EDT documented as of this encounter Medications at Time of Discharge acetaminophen (TYLENOL) 500 mg tablet Take 500 mg by mouth every 6 hours as needed. albuterol HFA (ProAir HFA) 90 mcg/actuation inhaler INHALE 2 PUFFS INTO THE LUNGS 4 TIMES DAILY NEEDED FOR COUGH OR WHEEZING. 9 alendronate (FOSAMAX) 70 mg tablet Take 1 tablet (70 mg total) by mouth every 7 (seven) days. Take in the morning with a full glass of water, on an empty stomach, and do not take anything else by mouth or lie down for the next 30 min. 12 tablet 2 5 calcium carbonate-vitamin D3 600 mg-5 mcg (200 unit) per tablet Take 1 Tablet by mouth 2 times daily. cholecalciferol (VITAMIN D-3) 25 mcg (1,000 unit) capsule Take 1 Cap by mouth daily. coenzyme Q-10 100 mg capsule Take 300 mg by mouth daily. doxycycline (ADOXA) 100 mg tablet Take 1 tablet (100 mg total) by mouth 1 (one) time each day. 4 Eliquis 5 mg tablet TAKE 1 TABLET BY MOUTH TWICE DAILY 180 tablet 3 5 ezetimibe (ZETIA) 10 mg tablet TAKE 1 TABLET BY MOUTH DAILY 90 tablet 3 5 fluticasone-umecli dinium-vilanterol (Trelegy Ellipta) 200-62.5-25 mcg inhaler 3 glucosamine/chondr o kennedy A/C/Mn (GLUCOSAMINE-CHOND ROIT-VIT C-MN ORAL) Take 1 Cap by mouth 2 times daily. guaifenesin (MUCINEX ORAL) if needed. HELIUM-OXYGEN INHL Inhale 2 L into the lungs daily. 2 liters at rest 3 liters with exertion ipratropium-albute roL (DUONEB) 0.5-2.5 mg/3 mL nebulizer solution Inhale 3 mL into the lungs 4 times daily. 0 Lactobacillus acidophilus (PROBIOTIC ORAL) Take by mouth 2 times daily. LORazepam (ATIVAN) 0.5 mg tablet Take 1 tablet (0.5 mg total) by mouth at bedtime as needed for anxiety. 28 tablet 5 magnesium oxide 400 mg magnesium capsule Take 1 Cap by mouth daily. medical supply, miscellaneous (MISCELLANEOUS MEDICAL SUPPLY MIS) ACAPELLA 1 Device by Does not apply route 4 times daily for 30 days. 9 melatonin 3 mg tablet Take 1 Tab by mouth at bedtime. mucus clearing device (FLUTTER MIS) 1 Device by Does not apply route 4 times daily. 8 omeprazole (PriLOSEC) [address] capsule Take 1 capsule (20 mg total) by mouth 2 (two) times a day. 180 capsule 3 5 potassium chloride 20 mEq tablet extended release Take 10 mEq by mouth 1 (one) time each day in the morning. And 20 mEq in the evening 4 Repatha SureClick 140 mg/mL pen injector injection INJECT 1 PEN SUBCUTANEOUSLY EVERY 2 WEEKS 6 mL 3 5 rifAMPin (RIFADIN) 300 mg capsule Three days a week 02/27/20 2 2 sodium chloride 7 % solution for nebulization nebulizer solution USE 1 VIAL VIA NEBULIZER TWICE DAILY 3 sotaloL (BETAPACE) 80 mg tablet TAKE 1 TABLET BY MOUTH EVERY 12 HOURS 180 tablet 3 5 tobramycin (BALBINA 300) 300 mg/5 mL solution for nebulization 28 days on, 28 days off 3 vit C/E/Zn/coppr/lutei n/zeaxan (PRESERVISION AREDS-2 ORAL) Take 1 Cap by mouth 2 times daily. zolpidem (AMBIEN) 5 mg tablet Take 1 tablet (5 mg total) by mouth at bedtime as needed for sleep. for insomnia Max Daily Amount: 5 mg 28 tablet 5 documented as of this encounter Discharge Disposition Disposition Code Departure Means Destination Home or Self Care documented in this encounter Plan of Treatment Upcoming Encounters Date Type Department Care Team (Late st Contact Info) Description 04/19/2025 3:20 PM EST Consult Gastroenterology - [address] [facility] [address] [place] [phone] Fide Laguerre MD [address] [place] [phone] 10/21/2025 11:30 AM EDT Office Visit Adult Medicine [address] [phone] Daniel Yoon MD [address] [place] [phone] documented as of this encounter Goals Goal Patient Goal Type Associated Problems Recent Progress Patient-Stated? Author Pt will complete IV therapy without any adverse complications Dorothea Austin, RN Note: 03/18/25. Pt is managing her own IV therapy with oversight form Salena CARTER. 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 The NOF guidelines recommend that FDA approved medical therapies be considered in postmenopausal women and men age >50 years with a: i. Hip or vertebral (clinical or morphometric) fracture ii. T score of < -2.5 at the spine or hip iii. 10 year fracture probability by FRAX of >3% for hip fracture, or >20% for major osteoporotic fracture PLEASE NOTE: W.H.O. classification is based on lowest measured density at the spine, femoral neck, or total hip.This classification has prognostic significance when applied to post menopausal women and older men. 1) The World Health Organization defines low BMD as follows: T-score Normal at or > -1 Osteopenia < -1 and > -2.5 Osteoporosis at or < -2.5 without fractures Established osteoporosis < -2.5 with fractures -------- FINAL REPORT -------- Dictated By: Sandi Rodriguez Dictated Date: 04/12/2025 10:51 ET Assigned Physician: Sandi Rodriguez Reviewed and Electronically Signed By: Sandi Rodriguez Signed Date: 04/12/2025 11:07 ET Workstation ID: [id number] Transcribed By: Self Edit Transcribed Date: 04/12/2025 10:51 ET Narrative 04/12/2025 11:07 AM EDT Clinical history: f/u osteoporosis Scans of the lumbar spine and hips were performed on a [employer] fan beam bone densitometer. Bone mineral density measurements and associated T and Z scores respectively are as follows: Lumbar Spine: L1-L4 BMD: 0.997 g/cm2 T-Score: -0.5 Z-Score: 2.4 Compared with the prior study dated 06/12/2022, the BMD reading has increased which is statistically significant Left Proximal Femur: Neck BMD: 0.577 g/cm2 T-Score: -2.5 Z-Score: 0 Total BMD: 0.673 g/cm2 T-Score: -2.2 Z-Score: 0.1 Compared with the prior study the mean BMD reading in the total left hip has increased which is not statistically significant Compared with standards for the young adult, lowest measured bone density places the patient in the W.H.O. osteoporotic range. Procedure Note Sandi Rodriguez MD - 04/12/2025 Clinical history: f/u osteoporosis Scans of the lumbar spine and hips were performed on a [employer] beam bone densitometer. Bone mineral density measurements and associated T and Z scoresrespectively are as follows: Lumbar Spine: L1-L4 BMD: 0.997 g/cm2 T-Score: -0.5 Z-Score: 2.4 Compared with the prior study dated 06/12/2022, the BMD reading hasincreased which is statistically significant Left Proximal Femur: Neck BMD: 0.577 g/cm2 T-Score: -2.5 Z-Score: 0 Total BMD: 0.673 g/cm2 T-Score: -2.2 Z-Score: 0.1 Compared with the prior study the mean BMD reading in the total left hiphas increased which is not statistically significant Compared with standards for the young adult, lowest measured bone densityplaces the patient in the W.H.O. osteoporotic range. IMPRESSION: Osteoporosis. The NOF guidelines recommend that FDA approved medical therapies beconsidered in postmenopausal women and men age >50 years with a: i. Hip or vertebral (clinical or morphometric) fracture ii. T score of < -2.5 at the spine or hip iii. 10 year fracture probability by FRAX of >3% for hip fracture, or >20%for major osteoporotic fracture PLEASE NOTE: W.H.O. classification is based on lowest measured density at the spine,femoral neck, or total hip.This classification has prognostic significancewhen applied to post menopausal women and older men. 1) The World Health Organization defines low BMD as follows: T-score Normal at or > -1 Osteopenia < -1 and > -2.5 Osteoporosis at or < -2.5 withoutfractures Established osteoporosis < -2.5 with fractures -------- FINAL REPORT -------- Dictated By: Sandi Rodriguez Dictated Date: 04/12/2025 10:51 ET Assigned Physician: Sandi Rodriguez Reviewed and Electronically Signed By: Sandi Rodriguez Signed Date: 04/12/2025 11:07 ET Workstation ID: [id number] Transcribed By: Self Edit Transcribed Date: 04/12/2025 10:51 ET us Daniel Yoon MD IMG DXA PROCEDURES Final Result documented in this encounter Visit Diagnoses Diagnosis Osteopenia, unspecified location documented in this encounter Additional Health Concerns Assessment Noted Time PHQ-9 Depression Total Score: 0 09/18/19 25 10:10 AM EDT A fall risk assessment has been complete d for the patient 09/24/2024 11:07 AM EDT documented as of this encounter Care Teams Athletic Coordinator Relationship Specialty Start Date End Date Daniel Yoon MD [address] [place] [phone] PCP - General Internal Medicine 04/30/24 documented as of this encounter
[2025-04-15 11:01] VITALS: BP 150/60; PULSE 90; O2SAT 93; BMI 19.4
--- NOTE | 2025-04-15 11:01 | MHC.OFFVIS ---
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 She has had bronchoscopies in the past with positive stenotrophomonas. She also has a cardiac condition including AFib a flutter. She had a prolonged hospitalization the summer was very sick. She started to feel better. She completed a Holter monitor. She is still having issues with reflux. She is maintaining a diet and taking medications to minimize the acid. The patient did have a CT scan of the chest March 16, 2019 that we personally. The pulmonary nodules appear to be stable. She does have some evidence of airspace disease in the bases bring up the question of micro aspirations into the lungs. This appears to be a little bit worse on the left side in the right with compared to previous. Therefore, we talked about the importance of micro aspirations and minimizing the apparent we can consider promotility agents including Reglan, azithromycin and temporary done. However, domperidone and azithromycin do cause QT prolongation with the dangers with her sotalol. Right now Reglan is an option but will hold off at this time since she is doing well. We did review her CT scan of the chest demonstrating interval improvement her pulmonary nodules. She still has bronchiectatic changes and bronchitis looking airways, but, overall better. The right lower lobe has more dense airspace disease but that even looks improved when compared to her previous CAT scan from [facility]. She still waiting to get a portable oxygen concentrator. She [facility] to get that arranged. 07/23/2023 the patient is here for a pulmonary follow-up visit. The patient is nervous about her CT scan results. I was able to give her reassuring news. The nodular density that was in the left upper lobe resolved after the 2 months' worth of voriconazole. Therefore, we can go ahead and have her stop the voriconazole. She will go back on the inhaled tobramycin and also on the rifampin. The patient has been a little more congested so I believe this will be helpful. She still has evidence of active mycobacterial disease so therefore she needs to stay on the therapy. She has bronchiectasis in the inhaled tobramycin is been very effective for. The patient has been complaining of this burning sensation in the chest. Sometimes he can be pretty severe. For some reason response to prednisone although is not really her breathing. I did provide her with gabapentin that she can use at nighttime to help her with neuropathic pain. The patient also needs to follow-up with cardiology to make sure that she does not have active cardiac issue going on. She continues use oxygen with good effect. The patient also continues with the current respiratory therapy. Overall she is doing better. However, she does have significant comorbidities with extensive emphysema. Will continue monitoring him closely. 09/25/2023 the patient is here for a pulmonary follow-up visit. The patient recently was at the [facility] where she was admitted with pneumonia. She was having the burning sensation in the chest. Seems to happen when she started to get more congested sickly. Therefore likely a sign of airway burden and mucus plugging. She was given vancomycin and also cefepime in the hospital. Shunt she was discharged on Levaquin which she did take for 3 days although she needs to be very careful with QT. the patient does take sotalol. Did helping her burning sensation in the chest did improve on that therapy. Now she is at home she is off the prednisone. We did talk about a small dose of prednisone although she has osteoporosis and therefore risk for having further bone injury and fractures. Therefore I will give her some prednisone but not to take it right now unless she gets sick she can do short burst low dose. In addition to that the patient has been back on the inhaled tobramycin. This will help decrease some of the organisms from her lungs. Will go ahead and start her on a small dose of doxycycline in order to treat for Staph related chinstrap related infections. The patient has had significant probably microbial infection. And also from the Modic standpoint the patient unfortunately has not been able to use the macrolide therapy because of the sotalol. Although she is seen by new animal care technician and is felt that maybe she can come off the sotalol so therefore if that is the case we can start her on azithromycin. I will reach out to her new animal care technician to try a figure out how we can go about the change. She continues use the oxygen with good therapy. 11/06/2023 the patient is here for a pulmonary follow-up visit. Overall she is feeling better. Her burning chest sensation has improved. The patient is still having to use her oxygen more regularly. She is tolerating the doxycycline daily. She has also taking the rifampin. In addition to that she has been taking the inhaled tobramycin 28 days on 20 days off. The days that she is not using the inhaled tobramycin she started getting little bit more secretion although still clear or light in color. We again talked about the azithromycin. Currently she is still on sotalol. Her animal care technician did mention the possibility of her coming off sotalol. But at this point since she is doing well from the doxycycline and we already treating all the organisms with current medication regimen best just to stay on when she is on right now specially with a very complicated medical issues. The patient did have an incident here in the office where she tripped and her oxygen concentrator fell landing on the cannula receptor and breaking. Therefore she will reach out to [facility] and will try to get that fixed. We did review her PFTs. There just a little bit over a year. I do believe that she should start participating in pulmonary rehabilitation specially now with the heated humidity will be hard for her to be outside. The patient is willing to start this at this time although she is concerned about her stamina. 12/30/2023 the patient is here for a pulmonary follow-up visit. The patient is starting to feel little bit better today. She has also been participating in pulmonary rehabilitation which is been helpful for her. She still has significant chest congestion. She does respond well to the inhaled BALBINA although it does irritate her lungs and constant chest tightness. When she is on the inhaled BALBINA she typically has less congestion. Currently she is on doxycycline treating her empirically for stenotrophomonas. The patient also had been treated for Aspergillus and also achromobacter previously. She is doing better from that standpoint. She does need a CT scan of the chest to address the previous findings. Her last CT scan was back in 10/04/2023. She does continue to use her oxygen good effect. She does have a portable oxygen concentrator the seems to be more portable for her. The patient returns 6 weeks. At that point will decide if she is going to continue the doxycycline. Also to note her mycobacterial cultures have been negative the last few times that they were checked. This is reassuring. Consider stopping the rifampin as well. Probably stop 1 medication at a time in view of her significant comorbidities. 02/12/2024 the patient is here for a pulmonary follow-up visit. Overall the patient has been a little bit more stable on the current medication regimen. She does respond well to the doxycycline. She was supposed to stop but she is concerned about stopping it based on the fact that she has been feeling well and does not want to go backwards. She has also been on inhaled tobramycin she is tolerating that. And she continues on the rifampin. I do believe that she should continue the doxycycline for now specially since her respiratory exam she still congested and now she is off the BALBINA. However, we did talk that when she is back on the BALBINA she can try to decrease it down to 3 times a week. In the meantime she continues with the neb treatments 3 times a day and also continues chest PT as she has the percussion vest and she also has the flutter valve. The patient also has been using her oxygen with good effect. She continues use it continuously. The patient follow-up in 3-4 months. If she has any worsening issues she will call for an earlier assessment. 05/19/2024 the patient is here for a pulmonary follow-up visit. The patient overall has been feeling better now. She was taken required a course of Vantin. After she did have worsening symptoms and she call the office and we just had her hold off for the weekend to see if she will recover by itself. She did feel better and did not need any additional antibiotics which is reassuring. The patient had recently started the inhaled tobramycin. She is tolerating it although it does cause some irritation to the throat and increased coughing and she also has a little more bronchospasms with. She knows to use her albuterol little bit more often to try to minimize on the adverse effects of the BALBINA. The patient does have issues with dysmotility. She does respond well to Reglan. I do think the Reglan will be a good option for her she can use as needed as long as she can monitor closely for any tremors where she would have to quickly stopped the medicine because it can result in irreversible tremors. She continues with other medications as prescribed in her respiratory therapy. She continues use the oxygen with good effect. She is going to the [facility] and she is exercising. She is using her oxygen 3 L pulse with exercising sometimes she is not able to go as fast as she used to before. She can always consider bringing larger tank in running continuous although it is hard for her to carry. Therefore she will continue with what she is doing right now will follow-up in 2-3 months. If she has any issues prior to that she will call for an earlier assessment. 08/24/2024 the patient is here for pulmonary follow-up visit. Overall she has been doing well. The doxycycline 3 times a week up ineffective. She also continues with BALBINA 28 days on 20 days off in the rifampin as well. This therapies have been able to keep her secretions under control and respiratory status stable. She still also during the percussion vest and the Acapella valve for CPT. The patient did go to the beach over the winter and she had a great time she has has another trip planned for the summer. I did tell her to call [facility] to see about getting a concentrator delivered. And she also needs to take all her supplies with her. For now we are not going to make any changes with her medications but in the fall will talk about potentially deescalating some of her medications including rifampin. If she has any issues prior to that she will call for an earlier assessment. 11/24/2024 the patient is here for pulmonary follow-up visit. Overall the patient has been doing well. She continues a very aggressive respiratory regimen treating both the non tuberculosis mycobacterial infections, her stenotrophomonas history and Pseudomonas history as well. Seems like the medications are keeping her at [place]. Her mucus production is decreased. The patient does have nasal congestion at times in likely component of vaso motor rhinitis. Will go ahead and prescribe some nasal sprays for her. In the meantime she does complaint of the inhaled tobramycin causes her to have significant chest tightness and wheezing. She can go ahead and decrease it to once a day when she is doing him just to see if she gets any relief. If she starts developing worsening chest congestion though she will have to increase it we have to kind of work around the adverse effects of the medication. The patient will get an x-ray before the next visit she will continue to use her oxygen as prescribed as it has been very affecting beneficial. Will follow-up in 3-4 months. If she has any issues before that she will call for an earlier assessment. 02/23/2025 the patient is here for pulmonary follow-up visit. Overall she is doing okay last week or 2 she did have increase chest congestion and she did have increased shortness breath. She was able to expectorate a lot of phlegm and she started feeling better. She actually started feeling the burning sensation in the chest that she usually feels when she is getting infection. She is now back on her inhaled BALBINA twice a day she seems to be doing better with the secretions standpoint on the inhaled BALBINA. Although, it does cause her to have more chest tightness and wheezing. Therefore, the patient has been using the budesonide nebs which are good and she can also consider going on a small dose of prednisone although she has the monitor her blood sugars. She also continues on the rifampin which she seems to be tolerating. She recently did have a chest x-ray which we personally reviewed demonstrating no significant disease shows evidence of hyperinflation and chronic bronchiectasis. She does have pulmonary nodules last CT scan was back in 2023. Therefore, will have her get a CT scan prior to the next visit in 3-4 months. The patient will provide us with a sputum culture for both culture and AFB if her congestion returns. We also talked about considering a Ohtuvayre nebs. She is already on lot her nebulized therapy but this may be a good option to decrease inflammation of the airways. Will go ahead and request that and then figure out how to get it into her regimen reasonably. 04/15/2025 the patient is here for pulmonary follow-up visit. Overall the patient has been doing better now. She did complete 3 weeks of meropenem. 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 She had 1 visit with her primary care doctor where she was desaturating. Therefore they did request a chest x-ray and per the patient's report it will had an increased opacity. Although x-rays for the patient is difficult to interpret because of her significant disease. Clinically she is doing better right now likely was mucus plugging related. The patient has a percussion vest and recently she had to call because she has lost weight and she had to get a smaller vest. She noticed that the vest work better now and she was able to clear her lungs significantly. Therefore she will monitor closely her respiratory capacity and hopefully she can continue with good mucus clearance. In the meantime though because of her multiple resistant infections and bronchiectasis and now with resistance to the gentamicin as she is currently inhaled tobramycin will go ahead and refer her to Infectious Disease. She will continue with the current respiratory therapy. She is agreeable to starting Ohtuvayre as another modality to provide any inflammation to the airways and further bronchodilation. She continues with the bronchodilator therapy also continues with the budesonide and also continues with the hypertonic saline. Will see how she does with the additional nebulizer treatments as it may be a lot. She does have a CT scan scheduled for May and will follow-up sometime after that in May. If any issues arise she can always call for further recommendations. 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 Pulmonary nodules COPD (chronic obstructive pulmonary disease) Surgical History Hx of colonoscopy History of bronchoscopy History of appendectomy Social History Household Members: None Household Members Other:: alone Housing: Condominium Are you a primary medical care manager to a significant other at home: No Do you presently have visiting nurse or other home services: No Alcohol intake: never Patient Tobacco Use Status: Former Tobacco user Tobacco use type: Cigarette Years Smoked: 35 Second Hand Smoke Exposure: No Advance Directives Date on File: 01/31/22 service: No Current occupational status: retired Review of Systems Const Denies fever(s), Denies malaise, Denies night sweats, Reports poor appetite and Reports weight loss ENT Denies change in voice, Denies lip swelling, Denies mouth pain, Reports nasal congestion, Reports nasal discharge and Denies tongue swelling Card Denies chest pain and Reports dyspnea on exertion Resp Denies chest congestion, Reports cough, Denies hemoptysis, Reports dyspnea on exertion and Reports wheezing GI Denies abdominal pain and Reports nausea Musc Denies no additional complaints Neuro Denies Neuro-related abnormal movements Psych Denies no additional complaints Sherwin/Lymph Denies easy bleeding and Denies lymphadenopathy Aller/Immun Denies lip swelling, Denies tongue swelling and Reports wheezing Physical Exam Vital Signs: Last Vital Signs Pulse 90 04/15/25 11:01 BP 150/60 H 04/15/25 11:01 Pulse Ox 93 04/15/25 11:01 Oxygen Delivery Method Nasal Cannula 04/15/25 11:01 Oxygen Flow Rate 2 04/15/25 11:01 BMI result Body Mass Index 19.4 Last Vital Signs Temp 98.1 F 11/14/22 12:00 Pulse 87 11/14/22 12:00 Resp 19 11/14/22 12:00 BP 126/61 11/14/22 12:00 Pulse Ox 95 11/14/22 12:00 O2 Del Method Nasal Cannula 11/14/22 12:00 O2 Flow Rate 2 11/14/22 08:00 Oxygen Flow Rate 4 11/11/22 14:50 BMI result Body Mass Index 23.2 Const General: alert HEENT Head: Yes normocephalic Neck Neck: Yes normal visual inspection, Yes full ROM and Yes no lymphadenopathy Chest Chest palpation & inspection: normal inspection of the chest Resp Effort & Inspection: normal respiratory effort and prolonged expiratory phase Auscultation: no crackles, no rhonchi, no wheezes and diminished lung sounds Cardio Rate: regular rate Rhythm: regular rhythm Heart sounds: S1 normal heart sound present and S2 normal heart sound present GI Palpation (GI): Soft to palpation Auscultation: normal bowel sounds Skin General skin exam: no rashes or lesions noted Extrem General: Yes no clubbing, cyanosis or edema Results Reviewed Results Reviewed: personally reviewed CT chest with chronic changes and hypernflation. Assessment & Plan Assessment & Plan (1) Bronchiectasis: Code(s): J47.9 - Bronchiectasis, uncomplicated Category: Medical Qualifiers: Bronchiectasis type: uncomplicated Qualified Code(s): J47.9 - Bronchiectasis, uncomplicated (2) Pulmonary nodules: Comment: Code(s): R91.8 - Other nonspecific abnormal finding of lung field Category: Medical (3) COPD (chronic obstructive pulmonary disease): Code(s): J44.9 - Chronic obstructive pulmonary disease, unspecified Category: Medical Qualifiers: COPD type: chronic bronchitis Chronic bronchitis type: mucopurulent Qualified Code(s): J41.1 - Mucopurulent chronic bronchitis (4) Nontuberculous mycobacterial disease of lung: Code(s): A31.0 - Pulmonary mycobacterial infection Category: Medical (5) Pseudomonas respiratory infection: Code(s): J98.8 - Other specified respiratory disorders; B96.5 - Pseudomonas (aeruginosa) (mallei) (pseudomallei) as the cause of diseases classified elsewhere Category: Medical (6) Aspergilloma: Comment: resolved on CT chest 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 - Aspergillosis, unspecified Category: Medical (7) 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: Comment: resolved Code(s): A49.8 - Other bacterial infections of unspecified site; Z16.24 - Resistance to multiple antibiotics Category: Medical (8) Pseudomonal pneumonia: Code(s): J15.1 - Pneumonia due to Pseudomonas Category: Medical Plan Continue Balbina 28 days on, 28 days off for pseudomonas/NTB continue Rifampin MWF for NTB continue Doxycycline MWF for stenotrophamonasa continue Advair/Spiriva Gabapentin 200mg qHS ROBERT as needed continue budesonide start Ohtuvayre Sputum cx/AFB if worsens oxygen with activity and sleep reglan BID as needed for nausea continue CPT continue Pulmonary exercise ID referral due to resistant pseudomonas to gentamycin. On antirrhythmic agents F/U 3-4 months Orders: Referrals Infectious Disease Referral A49.8 - Other bacterial infections of unspecified site, J15.1 - Pneumonia due to Pseudomonas, J47.9 - Bronchiectasis, uncomplicated, Z16.24 - Resistance to multiple antibiotics Coding Level of Care Code Est Pt Level 5 (69283) Complex EM visit Add On G2211 Diagnoses Bronchiectasis without complication J47.9 Bronchiectasis type: uncomplicated Pulmonary nodules R91.8 Mucopurulent chronic bronchitis J41.1 COPD type: chronic bronchitis Chronic bronchitis type: mucopurulent Nontuberculous mycobacterial disease of lung A31.0 Pseudomonas respiratory infection J98.8; B96.5 Aspergilloma B44.9 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
--- OUTSIDE RECORDS SUMMARY | 2025-04-15 12:19 | XMS_ITS | Clinical Summary ---
Author Organization Patient Business Ser vice [facility] Address [address] [place] [address] Care Team Providers Care Company Tanker Truck Driver Name Role Phone Daniel Yoon MD Primary Care Provider Allergies No known active allergies Medications glucosamine/zabrina [...] bedtime as needed for anxiety. 28 tablet 04/04/20 25 Active zolpidem (AMBIEN) 5 mg tablet Take 1 tablet (5 mg total) by mouth at bedtime as needed for sleep. for insomnia Max Daily Amount: 5 mg 28 tablet 04/04/20 25 Active LORazepam (ATIVAN) 0.5 mg tablet Take 1 tablet (0.5 mg total) by mouth at bedtime as needed for anxiety. 28 tablet 02/01/20 25 025 Discontin ued(Reord er) zolpidem (AMBIEN) 5 mg tablet Take 1 tablet (5 mg total) by mouth at bedtime as needed for sleep. for insomnia Max Daily Amount: 5 mg 28 tablet 02/01/20 25 025 Discontin ued(Reord er) Active Problems Problem Noted Date Diagnosed Date Murmur, cardiac 11/30/2024 Assessment & Plan (11/30/2024 3:19 PM EDT): The patient has cardiac murmur on exam. Sounds mild. Sounds like a mitral regurgitation. I am going to update an echocardiogram. COPD (chronic obstructive pu lmonary disease) ([facility] V24, [facility] V28) 04/23/2024 Overview (04/23/2024): Follows with [facility] Pulm. Assessment & Plan (09/24/2024 11:51 AM [...] as well. CHEMO (mycobacterium avium-int racellulare) infection ([facility] V24, [facility] V28) 10/01/2022 Assessment & Plan (09/24/2024 11:51 AM EDT): Carotid artery disease ([facility] V24) 08/24/2020 Overview (04/23/2024): [...] right ICA. Gross hematuria 09/15/2017 Atrial flutter ([facility] V24, [facility] V28) 2016 Overview (05/07/2024): [...] Rodarte's note from 2018 (not scanned into [facility]) - She even had a [...] Encounters Date Type Department Care Team Description 04/11/2025 10:20 AM EDT - 04/11/2025 11:59 PM EDT Hospital Encounter Bone Density - [address] [phone] Osteopenia, unspecified location Discharge Disposition: Home or Self Care 04/07/[address] [phone] Daniel Yoon MD 04/06/2025 Telephone [facility] - [address] [facility] [address] [place] [address] Mary Anne Vargas MD 04/04/2025 11:25 AM EDT - 04/04/2025 11:59 PM EDT Hospital Encounter XRAY - [address] [phone] Pseudomonas aeruginosa infection; CHEMO (mycobacterium avium-intracellular e) infection ([facility] V24, [facility] V28); Chest congestion Discharge Disposition: Home or Self Care 04/04/2025 11:15 AM EDT - 04/04/2025 11:59 PM EDT Hospital Encounter XRAY [address] [phone] Paresthesia of both lower extremities Discharge Disposition: Home or Self Care 04/04/2025 10:30 AM EDT Office Visit [address] [phone] Daniel Yoon MD Pseudomonas aeruginosa infection (Primary Dx); CHEMO (mycobacterium avium-intracellular e) infection ([facility] V24, [facility] V28); Chronic obstructive pulmonary disease, unspecified COPD type ([facility] V24, [facility] V28); Chest congestion; Paresthesia of both lower extremities; Atrial flutter, unspecified type ([facility] V24, [facility] V28) 03/10/2025 Telephone Adult [address] [phone] Daniel Yoon MD 02/09/2025 1:28 PM EDT - 02/09/2025 11:59 PM EDT Hospital [facility]counter [facility] [address] [phone] Encounter for screening mammogram for [...] Date Site/Laterality Comments APPENDECTOMY PROCEDURE:APPENDECTOMY APPENDECTOMY PROCEDURE: [place] APPENDECTOMY TONSILLECTOMY PROCEDURE: HISTORICAL TONSILLECTOMY Medical History Medical History Date Comments Asthma DX:Asthma COPD (chronic obstructive pu lmonary disease) ([facility] V24, [facility] V28) DX:COPD (chronic o bstructive pulmonary disease) ([facility]) High blood pressure DX:High bloo d pressure Osteoporosis DX:Osteoporosis GERD (gastroesophageal reflux disease) DX:GERD (gastroesophageal reflux disease) COPD (chronic obstructive pu lmonary disease) ([facility] V24, [facility] V28) DX:COPD (chronic o bstructive pulmonary disease) ([facility]); COMMENT: dr mehta History of tobacco abuse DX:Hist ory of tobacco abuse; COMMENT: 35 pk yrs Glaucoma 03/15/2015 DX:Glaucoma Hyperlipidemia 03/15/2015 DX:Hyperlipidemi a GERD (gastroesophageal reflux disease) 03/15/2015 DX:GERD (gastroesophageal reflux disease) Hypertension 03/15/2015 DX:Hypertension Diverticulitis 03/15/2015 DX:Diverticuliti s Onychomycosis 03/15/2015 DX:Onychomycosis Colon polyp 03/15/2015 DX:Colon polyp Anxiety 07/30/2016 DX:Anxiety Atrial flutter ([facility] V24, [facility] V28) 06/11/2017 DX:Atrial flutter (HCC); COM MENT: On sotalol and eliquis; s/p abalation in 2016; follow reg with cards 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 of flyin g Gross hematuria 09/15/2017 DX:Gross hematur ia Osteopenia 03/15/2015 DX:Osteopenia Pulmonary nodule 04/09/2016 DX:Pulmonary no dule Thyroid nodule 12/2018 DX:Thyroid nodul e; COMMENT: 3 mm benign features Carotid stenosis, bilateral DX:C arotid stenosis, bilateral CHEMO (mycobacterium avium-intracellulare) infection ([facility] V24, [facility] V28) 10/01/2022 DX:CHEMO (mycobacterium avium-intracellulare) infection ([facility]) Family History Medical History Relation [...] Smoking Tobacco: Former Cigarettes Smokeless Tobacco: Never Tobacco Cessation:Counseling Given: Not Answered Alcohol Use Standard Drinks/Week Comments Yes 0 [...] do you feel lonely or isolated from ose around you? Rarely 09/17/2024 Food Risk [...] for your loved ones. For example, child development associate teacher or elderly care for an older adult? [...] Sign Reading Time Taken Comments Blood Pressure 112/58 04/04/2025 10:22 AM EDT Pulse 88 04/04/2025 10:22 AM EDT Temperature 36.5 C (97.7 F) 04/04/2025 10:22 AM EDT Respiratory Rate 18 04/04/2025 10:22 AM EDT Oxygen Saturation 90% 04/04/2025 10:22 AM EDT Inhaled Oxygen Concentration - - Weight 54.9 kg (121 lb) 04/04/2025 10:22 AM EDT Height 167.6 cm (5' 6 ) 04/04/2025 10:22 AM EDT Body Mass Index 19.53 04/04/2025 10:22 AM EDT Plan of Treatment Upcoming Encounters Date Type Department Care Team (Late st Contact Info) Description 04/19/2025 3:20 PM EST Consult Gastroenterology - [address] [place] [id number] Fide Laguerre MD [address] [place] [address] 10/21/2025 11:30 AM EDT Office Visit Adult Medicine [facility] [address] [place] [address] Daniel Yoon MD [address] [place] [phone] Health Maintenance Due Date Last Done Comments IPV Vaccines (2 of 3 - Adult catch-up series) 06/23/2008 05/26/2008 Zoster Vaccines (2 of 3) 04/04/2009 02/07/2009 Social Influencers of Health Screening 09/17/2025 09/17/2024 Falls Risk Assessment 09/24/2025 09/24/2024, 023 Medicare Annual Wellness Visit 09/24/2025 09/24/2024 COVID-19 Vaccine ( season) 2025 04/06/2025, 03/26/2024, 04/07/2023, Additional history exists Hypertension/CHF/CAD Annual BMP Blood Test 01/04/2026 01/04/2025, 08/24/2024, 04/22/2024, Additional history exists Cholesterol Screening (Lipid Panel) 04/22/2029 04/22/2024, 02/09/2024, 12/19/2023 DTaP,Tdap,and Td Vaccines (3 - Td or Tdap) 08/25/2034 08/25/2024, 05/15/2022 Osteoporosis Screening (Bone Density Screening) 04/11/2035 04/11/2025, 06/12/2022, 03/10/2018 Pneumococcal Vaccine: 50+ Years Completed 01/22/2023, 05/03/2015, 04/14/2013, Additional history exists RSV Immunization Adult Patients Completed 04/02/2023 Depression Screening Completed 09/17/2024 Influenza Vaccine Completed 04/06/2025, , 04/02/2023, Additional history exists HIB Vaccines Aged Out [...] IV therapy without any adverse complications General Dorothea La, RN Note: 03/18/25. Pt is managing her own IV therapy with oversight form Salena CARTER. 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 Procedure Name Priority Date/Time Associated Diagnosis Comments BD BONE DENSITY DXA AXIAL SKELETON Routine 04/11/2025 10:45 AM EDT Osteopenia, unspecified location XR CHEST 2 VIEWS Routine 04/04/2025 11:4 3 AM EDT Pseudomonas aeruginosa infection CHEMO (mycobacterium avium-intracellulare) infection ([facility] V24, [facility] V28) Chest congestion XR LUMBAR SPINE 4+ VIEWS Routine 04/04/2025 11:43 AM EDT Paresthesia of both lower extremities MG MAMMO DIGITAL SCREENING W BRAYAN BILAT Routine 02/09/2025 1:54 PM EDT Encounter for screening mammogram for malignant neoplasm of breast BASIC METABOLIC PANEL Routine 01/04/2025 10:22 AM EDT Primary hypertension LIPID PANEL WITH REFLEX TO DIRECT LDL Routine 04/22/2024 8:08 AM EST Routine medical exam HM FALLS RISK ASSESSMENT Routine 05/16/2023 from Last 3 Months or Most Recently Relevant to Health Maintenance Results * BD Bone Density DXA Axial [...] Signed Date: 04/12/2025 11:07 ET Workstation ID: [id number] Transcribed By: Self Edit Transcribed Date: 04/12/2025 10:51 ET Narrative 04/12/2025 11:07 AM EDT Clinical history: f/u osteoporosis Scans of the lumbar spine and hips were performed on a [employer] fan beam bone densitometer. Bone mineral density [...] spine and hips were performed on a [employer] beam bone densitometer. Bone mineral density measurements [...] Signed Date: 04/12/2025 11:07 ET Workstation ID: [id number] Transcribed By: Self Edit Transcribed Date: 04/12/2025 10:51 ET us Daniel Yoon MD IMG DXA PROCEDURES Final Result * XR Chest 2 Views (04/04/2025 11:43 AM EDT) Anatomical Region Laterality Modality Body Radiographic Trisha ging 04/06/2025 8:52 AM EDT Narrative 04/06/2025 9:02 AM EDT Chest, 2 views. History chest congestion. History of CHEMO and pseudomonas infections. Comparison with prior studies from 02/21/2025 and 03/08/2025. Lungs are hyperinflated. There are increased patchy opacities at the bases, especially on the left. There is no pneumothorax or pleural effusions. Cardiomediastinal silhouette is stable. CONCLUSIONS: Increased patchy opacities at the bases, more prominent on the left. -------- FINAL REPORT -------- Dictated By: Jane Odom Dictated Date: 04/06/2025 08:52 ET Assigned Physician: Jane Odom Reviewed and Electronically Signed By: Jane Odom Signed Date: 04/06/2025 09:02 ET Workstation ID: [id number] Transcribed By: Self Edit Transcribed Date: 04/06/2025 08:52 ET Procedure Note Jane Odom MD - 04/06/2025 Chest, 2 views. History chest congestion. History of CHEMO and pseudomonas infections. Comparison with prior studies from 02/21/2025 and 03/08/2025. Lungs arehyperinflated. There are increased patchy opacities at the bases,especially on the left. There is no pneumothorax or pleural effusions.Cardiomediastinal silhouette is stable. CONCLUSIONS: Increased patchy opacities at the bases, more prominent onthe left. -------- FINAL REPORT -------- Dictated By: Jane Odom Dictated Date: 04/06/2025 08:52 ET Assigned Physician: Jane Odom Reviewed and Electronically Signed By: Jane Odom Signed Date: 04/06/2025 09:02 ET Workstation ID: [id number] Transcribed By: Self Edit Transcribed Date: 04/06/2025 08:52 ET us Daniel Yoon MD IMG XR PROCEDURES Final Result * XR Lumbar Spine 4+ Views (04/04/2025 11:43 AM EDT) Anatomical Region Laterality Modality Spine, L-spine Radiographic Trisha ging 04/04/2025 7:42 PM EDT Impressions 04/04/2025 7:50 PM EDT Moderately severe degenerative changes. -------- FINAL REPORT -------- Dictated By: Brenna Guzman Dictated Date: 04/04/2025 19:42 ET Assigned Physician: Brenna Guzman Reviewed and Electronically Signed By: Brenna Guzman Signed Date: 04/04/2025 19:50 ET Workstation ID: [id number] Transcribed By: Self Edit Transcribed Date: 04/04/2025 19:42 ET Narrative 04/04/2025 7:50 PM EDT EXAM: Lumbar spine x-ray HISTORY: Paresthesia of both lower extremities. Numbness in toes. COMPARISON: None, correlation with CT abdomen and pelvis 12/10/2018 FINDINGS: 4 views of the lumbar spine were performed. 6 lumbar type vertebral bodies. Vertebral body heights are maintained. Minimal levoscoliosis. Severe disc space narrowing at L2-3, L4-5, L5-6, and L6-S1. Mild disc space narrowing at L3-4. Multilevel endplate spurring. No definite spondylolysis or spondylolisthesis. Multilevel facet arthropathy. Extensive atherosclerotic calcifications of the aorta and iliac vessels. Procedure Note Brenna Guzman MD - 04/04/2025 EXAM: Lumbar spine x-ray HISTORY: Paresthesia of both lower extremities. Numbness in toes. COMPARISON: None, correlation with CT abdomen and pelvis 12/10/2018 FINDINGS: 4 views of the lumbar spine were performed. 6 lumbar type vertebral bodies. Vertebral body heights are maintained.Minimal levoscoliosis. Severe disc space narrowing at L2-3, L4-5, L5-6,and L6-S1. Mild disc space narrowing at L3-4. Multilevel endplatespurring. No definite spondylolysis or spondylolisthesis. Multilevel facetarthropathy. Extensive atherosclerotic calcifications of the aorta andiliac vessels. IMPRESSION: Moderately severe degenerative changes. -------- FINAL REPORT -------- Dictated By: Brenna Guzman Dictated Date: 04/04/2025 19:42 ET Assigned Physician: Brenna Guzman Reviewed and Electronically Signed By: Brenna Guzman Signed Date: 04/04/2025 19:50 ET Workstation ID: [id number] Transcribed By: Self Edit Transcribed Date: 04/04/2025 19:42 ET us Daniel Yoon MD IMG XR PROCEDURES Final Result * MG Mammo Digital Screening w Brayan [...] year. [facility] [address], [id number] -------- FINAL REPORT -------- Dictated By: Erich Sheehan Dictated Date: 02/09/2025 15:05 ET Assigned Physician: Erich Sheehan Reviewed and Electronically Signed By: Erich Sheehan Signed Date: 02/09/2025 15:12 ET Workstation ID: [id number] Transcribed By: Self Edit Transcribed Date: 02/09/2025 15:05 ET Narrative 02/09/2025 3:12 PM EDT EXAM: SCREENING MAMMOGRAPHY, BILATERAL HISTORY: SCREENING. No additional history. COMPARISON: 08/04/23, 06/19/22, 06/19/21, 02/27/21 TECHNIQUE: Synthesized CC and MLO projections of each breast. Tomosynthesis of each breast in the CC and MLO projections. ADDITIONAL IMAGING: None Computer-aided detection was employed with the [employer] AI 3-D. TISSUE DENSITY: There are scattered [...] None Computer-aided detection was employed with the [employer] AI 3-D. TISSUE DENSITY: There are scattered [...] year. [facility]amm[facility] at [address], [address] -------- FINAL REPORT -------- Dictated By: Erich Sheehan Dictated Date: 02/09/2025 15:05 ET Assigned Physician: Erich Sheehan Reviewed and Electronically Signed By: Erich Sheehan Signed Date: 02/09/2025 15:12 ET Workstation ID: [id number] Transcribed By: Self Edit Transcribed Date: 02/09/2025 15:05 ET us Ami Fernandez MOLD DESIGNER IMG BI PROCEDURES Final Resul t * Basic metabolic panel (01/04/2025 10:22 AM EDT) Sodium 135 133 - 145 mmol/L LAB CHEMISTRY [facility] Potassium 4.4 3.5 - 5.5 mmol/L LAB CHEMISTRY METHOD 01/04/2025 1:57 PM [facility] Chloride 101 96 - 110 mmol/L LAB CHEMISTRY METHOD 01/04/2025 1:57 PM [facility] CO2 27 21 - 32 mmol/L LAB CHEMISTRY METHOD 01/04/2025 1:57 PM [facility] Anion Gap 7 3 - 11 LAB CHEMISTRY METHOD 01/04/2025 1:57 PM [facility] Glucose 96 70 - 100 mg/dL LAB CHEMISTRY METHOD 01/04/2025 1:57 PM [facility] BUN 21 5 - 25 mg/dL LAB CHEMISTRY METHOD 01/04/2025 1:57 PM [facility] Creatinine 0.85 0.50 - 1.10 mg/dL LAB CHEMISTRY METHOD 01/04/2025 1:57 PM EDT [facility] eGFR 68 >=60 mL/min/1. 73m2 LAB CHEMISTRY METHOD 01/04/2025 1:57 PM EDT [facility] Comment:Calculation based on the Chronic Kidney Disease Epidemiology Collaboration (CKD-EPI) equation refit without adjustment for race. BUN/Creatinine Ratio 24.7 LAB CHEMISTRY METHOD 01/04/2025 1:57 PM EDT [facility] Calcium 10.4 8.5 - 10.5 mg/dL LAB CHEMISTRY METHOD 01/04/2025 1:57 PM EDT [facility] Blood Venous blood specimen / Unknown Venipuncture / Unknown 01/04/2025 10:22 AM EDT 01/04/2025 10:22 AM EDT Luis Alberto Marte MOLD DESIGNER LAB BLOOD ORDERABLES Final Resul t [facility] [address] [place] [address], * Lipid panel with reflex to direct LDL (04/22/2024 8:08 AM EST) Cholesterol 144 0 - 200 mg/dL LAB CHEMISTRY METHOD 04/22/2024 10:14 AM EST [facility] Triglycerides 101 0 - 150 mg/dL LAB CHEMISTRY METHOD 04/22/2024 10:14 AM EST [facility] HDL 68 >=40 mg/dL LAB CHEMISTRY METHOD 04/22/2024 10:14 AM EST [facility] LDL Calculated 56 0 - 100 mg/dL LAB CHEMISTRY METHOD 04/22/2024 10:14 AM [facility] VLDL Cholesterol Carlos 20.2 mg/dL LAB CHEMISTRY METHOD 04/22/2024 10:14 AM EST [facility] Non HDL Chol. (LDL+VLDL) 76 <145 mg/dL LAB CHEMISTRY METHOD 04/22/2024 10:14 AM EST [facility] Chol/HDL Ratio 2.1 0.0 - 4.4 LAB CHEMISTRY METHOD 04/22/2024 10:14 AM EST [facility] Blood Venous blood specimen / Unknown Venipuncture / Unknown 04/22/2024 8:08 AM EST 04/22/2024 8:08 AM EST Angélica WHITFIELD LAB BLOOD ORDERABLES Final Re sult [facility] ([facility]) [facility] [address] [place] [address], [place] [phone] * Falls Risk Assessment (05/16/2023) Pathologist [facility] Falls Risk Assessment Abstracted Historical Provider HEALTH MAINTENANCE Final Result from Last 3 Months or Most Recently Relevant to Health Maintenance Insurance MEDICARE [facility] Advance Directives Documents on File Type Date Recorded 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 Care Teams Company Tanker Truck Driver Relationship Specialty Start Date End Date Daniel Yoon MD [address] [place] [phone] PCP - General Internal Medicine 04/30/24
--- OUTSIDE RECORDS SUMMARY | 2025-04-15 12:19 | XMS_ITS | Encounter Summary ---
Author Organization [facility] Address [address] [place] [address] Care Team Providers Care Mental Health Technician Name Role Phone Daniel Yoon MD Primary Care Provider [phone] Reason for Visit * Reason Onset Date Comments medical records 04/06/2025 Encounter Details Date Type Department Care Team (Late st Contact Info) Description 04/06/2025 Telephone [facility] - [facility] [address] [facility] [address] [place] [address] Mary Anne Vargas MD [address] [place] [address] [address] [place] [address] Social History Tobacco Use Types Packs/Day Years [...] Record ed Within the last 3 months, rolanda w many times did you visit the [...] for your loved ones. For example, children's institution attendant or elderly care for an older adult? [...] as of this encounter Progress Notes * Shelby Ambrocio - 04/06/2025 10:14 AM EDT I received a referral in the workqueue to schedule the patient for her hospital follow up. She was discharged from [facility] on 03/10/25, please request records, thank you. documented in this encounter Plan of Treatment Upcoming Encounters Date Type Department Care Team (Late st Contact Info) Description 04/19/2025 3:20 PM EST Consult Gastroenterology - [address] [place] [address] Fide Laguerre MD [address] [place] [address] 10/21/2025 11:30 AM EDT Office Visit Adult Medicine [address] [phone] Daniel Yoon MD [address] [place] [address] documented as of this encounter Goals Goal Patient Goal Type Associated Problems Recent Progress Patient-Stated? Author Pt will complete IV therapy without any adverse complications Dorothea Austin, RN Note: 03/18/25. Pt is managing her own IV therapy with oversight form Salena CARTER. 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
--- OUTSIDE RECORDS SUMMARY | 2025-04-15 12:19 | XMS_ITS ---
Author Organization Patient Business Ser [facility] Address [address] [place] [address] Care Team Providers Care Center Mgr Name Role Phone Daniel Yoon MD Primary Care Provider [phone] Chronic Care Management Status:Ongoing (Active) Start date:03/11/2025 Enrollment date:03/18/2025 Enrollment reason:Referred by Care Team Case Team Name Relationship Phone Dorothea Ramirez RN(Responsible Staff) [facility] Coordination
--- OUTSIDE RECORDS SUMMARY | 2025-04-15 12:19 | XMS_ITS | Clinical Summary ---
Author Organization [facility] Address [address] [place] [address] Care Team Providers Care Investment Underwriter Name Role Phone Daniel Yoon MD Primary Care Provider [phone] Allergies No known active allergies Medications Medication [...] age to complete this topic Care Teams Investment Underwriter Relationship Specialty Start Date End Date Daniel Yoon MD PCP - General Internal Medicine 04/03/22
== END 2025-04-15 11:32 | disposition home or self-care (01) ==
LOC: HO.HPS 10:49
PROVIDERS: PCP Internal Medicine; Visit Provider Hospitalist
DX: J47.9 Bronchiectasis, uncomplicated (principal); R91.8 Other nonspecific abnormal finding of lung field; J41.1 Mucopurulent chronic bronchitis; A31.0 Pulmonary mycobacterial infection; J98.8 Other specified respiratory disorders; B96.5 Pseudomonas (aeruginosa) (mallei) (pseudomallei) as the cause of diseases classified elsewhere; B44.9 Aspergillosis, unspecified; A49.8 Other bacterial infections of unspecified site; Z16.24 Resistance to multiple antibiotics; J15.1 Pneumonia due to Pseudomonas
CPT/HCPCS: 99214; G2211

== ENCOUNTER → 2025-04-15 10:49 | Outpatient (BNVA) | payer MEDICARE, SELFPAY | PROVIDERS: PCP Internal Medicine; Visit Provider Hospitalist | DX: J41.1 Mucopurulent chronic bronchitis (principal); J47.9 Bronchiectasis, uncomplicated; A31.0 Pulmonary mycobacterial infection; Z87.891 Personal history of nicotine dependence; Z99.81 Dependence on supplemental oxygen; A49.8 Other bacterial infections of unspecified site; Z16.24 Resistance to multiple antibiotics; B44.9 Aspergillosis, unspecified | CPT/HCPCS: 99212 ==

== ENCOUNTER 2025-05-18 11:21 | Outpatient (REF) | payer MEDICARE, SELFPAY ==
--- NOTE | ~2025-05-18 | CT_ITS ---
EXAMINATION: CT CHEST WITHOUT CONTRAST CLINICAL INFORMATION: R 91.8 COMPARISON: July 17, 2023. TECHNIQUE: Multidetector volumetric CT imaging of the chest was done. Axial MIP volume rendering provided. Sagittal and coronal reformatted images were obtained. This CT examination was performed using dose optimization techniques as appropriate, variously including the following: *Automated exposure control *Adjustment of mA and/or kV according to patient size (this includes techniques or standardized protocols for targeted exams where dose is matched to indication/reason for exam; i.e. extremities or head) *Use of iterative reconstruction technique DLP: 93 mGy-cm FINDINGS: ARTIFICIAL FLOWER MAKER: Hyperinflated lungs. Pulmonary reticular pattern. Calcified plaques, aorta. Multilevel spondylosis. Osteopenia versus osteoporosis. Upper extremities at the side of the head. LUNGS: Centrilobular emphysematous changes both lungs. Peribronchial septal thickening. Intraluminal attenuation within the subsegmental pulmonary bronchi, both lower lung lobes and likely lingula. Multiple, scattered, mostly peripheral noncalcified pulmonary nodules, the largest measures 4 mm in the left lower lung lobe. MEDIASTINUM: No gross mediastinal lymphadenopathy. Calcified plaques throughout the thoracic aortic wall and its main branches and the coronary arteries. No aneurysm, thoracic aorta. Heart is not enlarged. No pericardial effusion. No pneumomediastinum. No hemopericardium. No hemomediastinum. The thyroid gland is not enlarged. CORONARY ARTERY CALCIFICATION: Calcified plaques. PLEURA: No pleural effusion. No pneumothorax. No calcified pleural plaques. No hemothorax. AXILLA: No lymphadenopathy. UPPER ABDOMEN: Nodular surface of the liver. Calcified plaques in the abdominal aorta and the included mesenteric arteries as well at the splenic artery. Complex 2 cm exophytic cystic lesion upper pole right kidney. Punctate calcification, right hepatic lobe. OSSEOUS STRUCTURES: Multilevel spondylosis without acute fracture or trauma-related listhesis. No lytic or blastic lesions. S-shaped curvature of the thoracolumbar spine. CT/CT chest wo IV con IMPRESSION: COPD emphysematous type changes with the superimposed acute inflammatory versus infectious processes. Consider allergic bronchopulmonary aspergillosis in the correct clinical settings. Coronary artery disease and atherosclerosis disease. Fleischner guidelines were followed. Electronically signed by: Matt Sánchez MD 05/18/2025 02:21 PM [facility]
--- OUTSIDE RECORDS SUMMARY | 2025-05-18 13:40 | XMS_ITS | Clinical Summary ---
Author Organization [facility] Prior to 11/13/24 Address [address] [place] [address] Care Team Providers Care Operator Maintainer Name Role Phone Daniel Yoon MD Primary Care Provider [phone] Allergies No known active allergies Medications Medication [...] age to complete this topic Care Teams Operator Maintainer Relationship Specialty Start Date End Date Daniel Yoon MD PCP - General Internal Medicine 04/03/22
--- OUTSIDE RECORDS SUMMARY | 2025-05-18 13:40 | XMS_ITS ---
Author Organization Patient Business Ser Formerly named [facility] Address [address] [place] [address] Care Team Providers Care Patient Assistant Name Role Phone Daniel Yoon MD Primary Care Provider [phone] Chronic Care Management Status:Ongoing (Active) Start date:03/11/2025 Enrollment date:03/18/2025 Enrollment reason:Referred by Care Team Case Team Name Relationship Phone Dorothea Ramirez RN(Responsible Staff) [facility] Coordination
--- OUTSIDE RECORDS SUMMARY | 2025-05-18 13:40 | XMS_ITS | Clinical Summary ---
Author Organization Patient Business [employer] [facility] Address [address] [place] [address] Care Team Providers Care Natural Gas Plant Technician Name Role Phone Daniel Yoon MD Primary Care Provider [phone] Allergies No known active allergies Medications glucosamine/zabrina [...] route 4 times daily for 30 days. 019 Active vit C/E/Zn/coppr/lut ein/zeaxan (PRESERVISION AREDS-2 ORAL) Take 1 Cap by mouth 2 times daily. Active HELIUM-OXYGEN INHL Inhale 2 L into the lungs daily. 2 liters at rest 3 liters with exertion Active Lactobacillus acidophilus (PROBIOTIC ORAL) Take by mouth 2 times daily. Active mucus clearing device (FLUTTER MISC) 1 Device by Does not apply route 4 times daily. 018 Active acetaminophen (TYLENOL) 500 mg tablet Take 500 mg by mouth every 6 hours as needed. Active albuterol HFA (ProAir HFA) 90 mcg/actuation inhaler INHALE 2 PUFFS INTO THE LUNGS 4 TIMES DAILY NEEDED FOR COUGH OR WHEEZING. 019 Active calcium carbonate-vitami n D3 600 mg-5 mcg (200 unit) per tablet Take 1 Tablet by mouth 2 times daily. Active cholecalciferol (VITAMIN D-3) 25 mcg (1,000 unit) capsule Take 1 Cap by mouth daily. Active fluticasone-umec lidinium-vilante rol (Trelegy Ellipta) 200-62.5-25 mcg inhaler 023 Active ipratropium-albu teroL (DUONEB) 0.5-2.5 mg/3 mL nebulizer solution Inhale 3 mL into the lungs 4 times daily. 020 Active melatonin 3 mg tablet Take 1 Tab by mouth at bedtime. Active potassium chloride 20 mEq tablet extended release Take 10 mEq by mouth 1 (one) time each day in the morning. And 20 mEq in the evening 024 Active rifAMPin (RIFADIN) 300 mg capsule Three days a week 022 Active sodium chloride 7 % solution for nebulization nebulizer solution USE 1 VIAL VIA NEBULIZER TWICE DAILY 023 Active tobramycin (BALBINA 300) 300 mg/5 mL solution for nebulization 28 days on, 28 days off 023 Active coenzyme Q-10 100 mg capsule Take 300 mg by mouth daily. Active doxycycline (ADOXA) 100 mg tablet Take 1 tablet (100 mg total) by mouth 1 (one) time each day. 024 Active sotaloL (BETAPACE) 80 mg tablet TAKE 1 TABLET BY MOUTH EVERY 12 HOURS 180 tablet 3 Active ezetimibe (ZETIA) 10 mg tablet TAKE 1 TABLET BY MOUTH DAILY 90 tablet 3 025 Active omeprazole (PriLOSEC) [address] capsule Take 1 capsule (20 mg total) by mouth 2 (two) times a day. 180 capsule 3 Active Repatha SureClick 140 mg/mL pen injector injection INJECT 1 PEN SUBCUTANEOUSLY EVERY 2 WEEKS 6 mL 3 025 Active Eliquis 5 mg tablet TAKE 1 TABLET BY MOUTH TWICE DAILY 180 tablet 3 025 Active LORazepam (ATIVAN) 0.5 mg tablet Take 1 tablet (0.5 mg total) by mouth at bedtime as needed for anxiety. 28 tablet 10/20/2 025 Active zolpidem (AMBIEN) 5 mg tablet Take 1 tablet (5 mg total) by mouth at bedtime as needed for sleep. for insomnia Max Daily Amount: 5 mg 28 tablet Active alendronate (FOSAMAX) 70 mg tablet TAKE 1 TABLET BY MOUTH WEEKLY IN THE MORNING WITH 8 OZ OF PLAIN WATER 30 MINUTES BEFORE FIRST FOOD, DRINK OR MEDS. STAY UPRIGHT FOR 30 MINS 12 tablet 1 Active alendronate (FOSAMAX) 70 mg tablet Take 1 tablet (70 mg total) by mouth every 7 (seven) days. Take in the morning with a full glass of water, on an empty stomach, and do not take anything else by mouth or lie down for the next 30 min. 12 tablet 2 2024 Discontinued Active Problems Problem Noted Date Diagnosed Date Murmur, cardiac 11/30/2024 Assessment & Plan (11/30/2024 3:19 PM EDT): The patient has cardiac murmur on exam. Sounds mild. Sounds like a mitral regurgitation. I am going to update an echocardiogram. COPD (chronic obstructive pu lmonary disease) ([facility] V24, [facility] V28) 04/23/2024 Overview (04/23/2024): Follows with [facility]. Assessment & Plan (09/24/2024 11:51 AM [...] as well. CHEMO (mycobacterium avium-int racellulare) infection ([facility] V24, [facility] V28) 10/01/2022 Assessment & Plan (09/24/2024 11:51 AM EDT): Carotid artery disease ([facility] V24) 08/24/2020 Overview (04/23/2024): Last [...] right ICA. Gross hematuria 09/15/2017 Atrial flutter ([facility] V24, [facility] V28) 2016 Overview (05/07/2024): - [...] Rodarte's note from 2018 (not scanned into [facility]) - She even had [...] Encounters Date Type Department Care Team Description 04/19/2025 3:20 PM EST Consult Gastroenterology - [address] [place] [address] Fide Laguerre MD Colon cancer screening (Primary Dx) 04/11/2025 10:20 AM EDT - 04/11/2025 11:59 PM EDT Hospital Encounter Bone Density - [address] [phone] Osteopenia, unspecified location Discharge Disposition: Home or Self Care 04/07/2025 Telephone Adult [address] [phone] Daniel Yoon MD 04/06/2025 Telephone [facility] - [facility] [address] [facility] [address] [place] [address] Mary Anne Vargas MD 04/04/2025 11:25 AM EDT - 04/04/2025 11:59 PM EDT Hospital Encounter XRAY - [address] [phone] Pseudomonas aeruginosa infection; CHEMO (mycobacterium avium-intracellulare ) infection ([facility] V24, [facility] V28); Chest congestion Discharge Disposition: Home or Self Care 04/04/2025 11:15 AM EDT - 04/04/2025 11:59 PM EDT Hospital Encounter XRAY [address] [phone] Paresthesia of both lower extremities Discharge Disposition: Home or Self Care 04/04/2025 10:30 AM EDT Office Visit [address] [phone] Daniel Yoon MD Pseudomonas aeruginosa infection (Primary Dx); CHEMO (mycobacterium avium-intracellulare ) infection ([facility]/HCC V24, [facility] V28); Chronic obstructive pulmonary disease, unspecified COPD type (CMS/HCC V24, [facility] V28); Chest congestion; Paresthesia of both lower extremities; Atrial flutter, unspecified type (CMS/HCC V24, [facility] V28) 03/10/2025 Telephone Adult [address] [phone] Daniel Yoon MD from Last 3 Months Immunizations Immunization Administration [...] PROCEDURE: ME APPENDECTOMY TONSILLECTOMY PROCEDURE: HISTORICAL TONSILLECTOMY COLONOSCOPY W/ POLYPECTOMY 02/22/2020 TA x 3 ESOPHAGOGASTRODUODENOSCOPY 02/22/2020 nl egd, nl esophagus biopsies ABLATION OF DYSRHYTHMIC FOCUS ?2017 Medical History Medical History Date Comments Asthma DX:Asthma COPD (chronic obstructive pu lmonary disease) ([facility], [facility] V28) DX:COPD (chronic o bstructive pulmonary disease) ([facility]) High blood pressure DX:High bloo d pressure Osteoporosis DX:Osteoporosis GERD (gastroesophageal reflux disease) DX:GERD (gastroesophageal reflux disease) COPD (chronic obstructive pu lmonary disease) ([facility] V24, [facility] V28) DX:COPD (chronic o bstructive pulmonary disease) ([facility]); COMMENT: dr mehta History of tobacco abuse DX:Hist ory of tobacco abuse; COMMENT: 35 pk yrs Glaucoma 03/15/2015 DX:Glaucoma Hyperlipidemia 03/15/2015 DX:Hyperlipidemi a GERD (gastroesophageal reflux disease) 03/15/2015 DX:GERD (gastroesophageal reflux disease) Hypertension 03/15/2015 DX:Hypertension Diverticulitis 03/15/2015 DX:Diverticuliti s Onychomycosis 03/15/2015 DX:Onychomycosis Colon polyp 03/15/2015 DX:Colon polyp Anxiety 07/30/2016 DX:Anxiety Atrial flutter ([facility] V24, [facility] V28) 06/11/2017 DX:Atrial flutter (HCC); COM MENT: [...] CMS/HCC V28) 10/01/2022 DX:CHEMO (mycobacterium avium-intracellulare) infection ([facility]) Pneumonia Abnormal ECG Family History Medical History Relation Name Comments Ovarian cancer Aunt paternal Hypertension Brother cynthia afib, cva Cancer Father father Coronary artery disease Father father 76 Depression Father father Heart disease Father father Hypertension Father father Other: afib Father father Cancer Mother mother Other: head and neck cancer Mother mother Hypertension Sister 1 yeny sister glaucoma, grav es disease Hypertension Sister 2 yeny CHF, copd Hypertension Sister 3 yeny CHF, copd Relation Name Status Comments Aunt Brother cynthia Father father Mother mother Sister 1 yeny sister Sister 2 yeny Alive Sister 3 yeny Alive Social History Tobacco Use Types Packs/Day Years [...] 10:22 AM EDT Respiratory Rate 18 04/04/2025 10:2 2 AM EDT Oxygen Saturation 90% 04/04/2025 10: 22 AM EDT Inhaled Oxygen Concentration - - Weight 54.8 kg (120 lb 12.8 oz) 04/19/2025 2:59 PM EST Height 162.6 cm (5' 4 ) 04/19/2025 2:59 PM EST Body Mass Index 20.74 04/19/2025 2:59 PM EST Plan of Treatment Upcoming Encounters Date Type Department Care Team (Late st Contact Info) Description 05/19/2025 1:10 PM EST Office Visit [facility] - [address] [place] [phone] Luis Alberto Marte NP [address] [place] [address] [place] [phone] 10/21/2025 11:30 AM EDT Office Visit Adult Medicine [facility] [address] [place] [phone] Dnaiel Yoon MD [address] [place] [phone] Health Maintenance Due Date Last Done Comments [...] Pseudomonas aeruginosa infection CHEMO (mycobacterium avium-intracellulare) infection ([facility] V24, [facility] V28) Chest congestion XR LUMBAR SPINE 4+ VIEWS Routine 04/04/2025 11:43 AM EDT Paresthesia of both lower extremities BASIC METABOLIC PANEL Routine 01/04/2025 10:22 AM [...] Signed Date: 04/12/2025 11:07 ET Workstation ID: [id number] Transcribed By: Self Edit Transcribed Date: 04/12/2025 10:51 ET Narrative 04/12/2025 11:07 AM EDT Clinical history: f/u osteoporosis Scans of the lumbar spine and hips were performed on a [employer] fan beam bone densitometer. Bone mineral density [...] spine and hips were performed on a [employer] beam bone densitometer. Bone mineral density measurements [...] Signed Date: 04/12/2025 11:07 ET Workstation ID: [id number] Transcribed By: Self Edit Transcribed Date: 04/12/2025 [...] Signed Date: 04/06/2025 09:02 ET Workstation ID: [id number] Transcribed By: Self Edit Transcribed Date: 04/06/2025 [...] Signed Date: 04/06/2025 09:02 ET Workstation ID: [id number] Transcribed By: Self Edit Transcribed Date: 04/06/2025 [...] Signed Date: 04/04/2025 19:50 ET Workstation ID: [id number] Transcribed By: Self Edit Transcribed Date: 04/04/2025 [...] Signed Date: 04/04/2025 19:50 ET Workstation ID: [id number] Transcribed By: Self Edit Transcribed Date: 04/04/2025 19:42 ET us Daniel Yoon MD IMG XR PROCEDURES Final Result * Basic metabolic panel (01/04/2025 10:22 AM EDT) Sodium 135 133 - 145 mmol/L LAB CHEMISTRY METHOD 01/04/2025 1:57 PM EDT [facility] Potassium 4.4 3.5 - 5.5 mmol/L LAB CHEMISTRY METHOD 01/04/2025 1:57 PM EDT [facility] Chloride 101 96 - 110 mmol/L LAB CHEMISTRY METHOD 01/04/2025 1:57 PM T [facility] CO2 27 21 - 32 mmol/L LAB CHEMISTRY METHOD 01/04/2025 1:[address] [facility] Anion Gap 7 3 - 11 LAB CHEMISTRY METHOD 01/04/2025 1:[address] [facility] Glucose 96 70 - 100 mg/dL LAB CHEMISTRY METHOD 01/04/2025 1:[address] [facility] BUN 21 5 - 25 mg/dL LAB CHEMISTRY METHOD 01/04/2025 1:[address] [facility] Creatinine 0.85 0.50 - 1.10 mg/dL LAB CHEMISTRY METHOD 01/04/2025 1:[address] [facility] eGFR 68 >=60 mL/min/1. 73m2 LAB CHEMISTRY METHOD 01/04/2025 1:[address] [facility] Comment:Calculation based on the Chronic Kidney Disease Epidemiology Collaboration (CKD-EPI) equation refit without adjustment for race. BUN/Creatinine Ratio 24.7 LAB CHEMISTRY METHOD 01/04/2025 1:[address] [facility] Calcium 10.4 8.5 - 10.5 mg/dL LAB CHEMISTRY METHOD 01/04/2025 1:[address] [facility] Blood Venous blood specimen / Unknown Venipuncture / Unknown 01/04/2025 10:22 AM EDT 01/04/2025 10:22 AM EDT us Luis Alberto Marte NP LAB BLOOD ORDERABLES Final Resul t [facility] [address] [place] [address], * Lipid panel with reflex to direct LDL (04/22/2024 8:08 AM EST) Cholesterol 144 0 - 200 mg/dL LAB CHEMISTRY METHOD 04/22/2024 10:14 AM EST [facility] Triglycerides 101 0 - 150 mg/dL LAB CHEMISTRY METHOD 04/22/2024 10:14 AM [facility] HDL 68 >=40 mg/dL LAB CHEMISTRY METHOD 04/22/2024 10:14 AM [facility] LDL Calculated 56 0 - 100 mg/dL LAB CHEMISTRY METHOD 04/22/2024 10:14 AM [facility] VLDL Cholesterol Carlos 20.2 mg/dL LAB CHEMISTRY METHOD 04/22/2024 10:14 AM [facility] Non HDL Chol. (LDL+VLDL) 76 <145 mg/dL LAB CHEMISTRY METHOD 04/22/2024 10:14 AM [facility] Chol/HDL Ratio 2.1 0.0 - 4.4 LAB CHEMISTRY METHOD 04/22/2024 10:14 AM [facility] Blood Venous blood specimen / Unknown Venipuncture / Unknown 04/22/2024 8:08 AM EST 04/22/2024 8:08 AM EST Angélica WHITFIELD LAB BLOOD ORDERABLES Final Re sult [facility] [address] [place] [address], * Falls Risk Assessment (05/16/2023) [facility] Falls Risk Assessment Abstracted Historical Provider HEALTH MAINTENANCE Final Result from Last 3 Months or Most Recently Relevant to Health Maintenance Insurance MEDICARE [facility] Advance Directives Documents on File Type Date Recorded Patient Social Security Benefits Interviewer Expl anation Health Care Decision (hx) 08/22/2023 [...] currently active code status orders. Care Teams Natural Gas Plant Technician Relationship Specialty Start Date End Date Daniel Yoon MD [address] [place] [phone] PCP - General Internal Medicine 04/30/24
== END 2025-05-18 11:22 | disposition home or self-care (01) ==
LOC: HO.CT 11:21
PROVIDERS: PCP Internal Medicine; Visit Provider Hospitalist
DX: R91.8 Other nonspecific abnormal finding of lung field (principal)
CPT/HCPCS: 71250

== ENCOUNTER → 2025-05-18 11:29 | Outpatient (BNV) | payer MEDICARE, SELFPAY | PROVIDERS: PCP Internal Medicine; Visit Provider Radiology Diagnostic Radiology | DX: J43.9 Emphysema, unspecified (principal) | CPT/HCPCS: 71250 ==

== ENCOUNTER 2025-05-25 11:17 | Outpatient (AMB) | payer MEDICARE, SELFPAY ==
--- OUTSIDE RECORDS SUMMARY | 2025-05-23 11:10 | XMS_ITS | Encounter Summary ---
Author Organization [facility] Address [address] [place] [address] Care Team Providers Care Paralegal Assistant Name Role Phone Daniel Yoon MD Primary Care Provider [phone] Reason for Visit * Reason Comments Follow-up * Consultation (Routine) - Authorized Specialty Diagnoses / Procedures Referred By Contac t Referred To Contact Cardiology Diagnoses Atrial flutter, unspecified type (CMS/HCC V24, CMS/HCC V28) Daniel Yoon MD [address] [place] [phone] Phone: tel: fax: Mary Anne Vargas MD [address] [place] [address] Phone: tel: fax: Referral ID Status Reason Start Date Expiration Date Visits Requested Visits Authorized [id number] Authorized Specialty Services Required 04/04/2026 1 1 Encounter Details Date Type Department Care Team (Latest Contact Info) Description 05/23/2025 11:10 AM EST Office Visit [facility] - [facility] [address] [facility] [address] [place] [phone] Luis Alberto Marte NP [address] [place] [address] [address] [place] [phone] Paroxysmal A-fib (CMS/HCC V24, CMS/HCC V28) (Primary Dx); Atrial flutter, unspecified type (CMS/HCC V24, CMS/HCC V28); Atypical chest pain; Carotid artery disease, unspecified laterality, unspecified type (CMS/[facility] V24); Primary hypertension; Pure hypertriglyceridemia Social History Tobacco Use Types Packs/Day Years [...] care for your loved ones. For example, early childhood education coordinator or elderly care for an older adult? [...] PM EDT documented as of this encounter Last Filed Vital Signs Vital Sign Reading Time Taken Comments Blood Pressure 130/66 05/23/2025 11:04 AM EST Pulse 90 05/23/2025 11:04 AM EST Temperature - - Respiratory Rate - - Oxygen Saturation 93% 05/23/2025 11:04 AM EST Inhaled Oxygen Concentration - - Weight 55.3 kg (122 lb) 05/23/2025 11:04 AM EST Height 165.1 cm (5' 5 ) 05/23/2025 11:04 AM EST Body Mass Index 20.3 05/23/2025 11:04 AM EST documented in this encounter Progress Notes * Luis Alberto Marte NP - 05/23/2025 12:08 PM ESTAssociated Problem(s): Hypertension Continue on the sotalol. * Luis Alberto Marte NP - 05/23/2025 12:08 PM ESTAssociated Problem(s): Atypical chest pain Patient is utilizing Eliquis secondary to paroxysmal atrial flutter, and Repatha with ezetimibe. She is not endorsing any cardiac complaints/anginal complaints at the appointment today. She does report that when she has an active lung infection she can feel a low/dull burning feeling in her chest. This typically clears up when the infection is treated. She is not endorsing any complaints today. * Luis Alberto Marte NP - 05/23/2025 12:06 PM ESTAssociated Problem(s): Hyperlipidemia Well-controlled on the Repatha and ezetimibe, please continue. Please adhere to a healthy cardiac diet * Luis Alberto Marte NP - 05/23/2025 12:05 PM ESTAssociated Problem(s): Carotid artery disease ([facility] V24) Most recent carotid ultrasound revealed less than 50% stenosis on both left and right ICA. * Luis Alberto Marte NP - 05/23/2025 12:05 PM ESTAssociated Problem(s): Atrial flutter (CMS/HCC V24, CMS/HCC V28) She is in sinus rhythm at the appointment. She is utilizing sotalol 80 mg p.o. twice daily in addition to the Eliquis 5 mg p.o. twice daily. As mentioned in the HPI she is an extensive history of chronic lung infections. Most recently in February 2025. She reports that her operation manager would liketo put her on Levaquin, however has not been able to secondary to the sotalol and the QT prolongingagents. We are going to look into some other options to the sotalol and will come up with a definitive planfor the future. documented in this encounter Plan of Treatment Upcoming Encounters Date Type Department Care Team (Late st Contact Info) Description 10/21/2025 11:30 AM EDT Office Visit Adult [address] [phone] Daniel Yoon MD [address] [place] [phone] documented as of this encounter Goals Goal Patient Goal Type Associated Problems Recent Progress Patient-Stated? Author Pt will complete IV therapy without any adverse complications General Dorothea La, RN Note: 03/18/25. Pt is managing her own IV therapy with oversight form Salena CARTER. 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 She did nt hear form her operation manager yet. She is feeling fine and is planning to discuss next week at her appt with Dr. Zapata, [facility] pul. documented as of this encounter Procedures Procedure Name Priority Date/Time Associated Diagnosis Comments ECG 12-LEAD Routine 05/23/2025 11:33 AM EST Paroxysmal A-fib (CMS/HCC V24, CMS/HCC V28) documented in this encounter Results * ECG 12 lead (05/23/2025 11:33 AM EST) 05/23/2025 11:1 4 AM EST Luis Alberto Marte NP ECG ORDERABLES Final Result [facility] documented in this encounter Visit Diagnoses Diagnosis Paroxysmal A-fib (CMS/HCC V24, CMS/HCC V28)- Primary Atrial flutter, unspecified type (CMS/HCC V24, CMS/HCC V28) Atypical chest pain Other chest pain Carotid artery disease, unspecified laterality, unspecified type (CMS/HCC V24) Primary hypertension Unspecified essential hypertension Pure hypertriglyceridemia documented in this encounter Orders Outpatient Referral Count Last Ordered Date Fir st Ordered Date AMB REFERRAL TO CARDIOLOGY 1 05/23/2025 documented in this encounter Additional Health Concerns Assessment Noted Time PHQ-9 Depression Total Score: 0 09/18/19 25 10:10 AM EDT A fall risk assessment has been complete d for the patient 09/24/2024 11:07 AM EDT documented as of this encounter Care Teams Paralegal Assistant Relationship Specialty Start Date End Date Daniel Yoon MD [address] [place] [phone] PCP - General Internal Medicine 04/30/24 documented as of this encounter
--- NOTE | 2025-05-25 11:18 | A.OFFVIS_ITS ---
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 She has had bronchoscopies in the past with positive stenotrophomonas. She also has a cardiac condition including AFib a flutter. She had a prolonged hospitalization the summer was very sick. She started to feel better. She completed a Holter monitor. She is still having issues with reflux. She is maintaining a diet and taking medications to minimize the acid. The patient did have a CT scan of the chest March 16, 2019 that we personally. The pulmonary no dules appear to be stable. She does have some evidence of airspace disease in the bases bring up the question of micro aspirations into the lungs. This appears to be a little bit worse on the left side in the right with compared to previous. Therefore, we talked about the importance of micro aspirations and minimizing the apparent we can consider promotility agents including Reglan, azithromycin and temporary done. However, domperidone and azithromycin do cause QT prolongation with the dangers with her sotalol. Right now Reglan is an option but will hold off at this time since she is doing well. We did review her CT scan of the chest demonstrating interval improvement her pulmonary nodules. She still has bronchiectatic changes and bronchitis looking airways, but, overall better. The right lower lobe has more dense airspace disease but that even looks improved when compared to her previous CAT scan from [facility]. She still waiting to get a portable oxygen concentrator. She has been working with [facility] to get that arranged. 07/23/2023 the patient is here for a pulmonary follow-up visit. The patient is nervous about her CT scan results. I was able to give her reassuring news. The nodular density that was in the left upper lobe resolved after the 2 months' worth of voriconazole. Therefore, we can go ahead and have her stop the voriconazole. She will go back on the inhaled tobramycin and also on the rifampin. The patient has been a little more congested so I believe this will be helpful. She still has evidence of active mycobacterial disease so therefore she needs to stay on the therapy. She has bronchiectasis in the inhaled tobramycin is been very effective for. The patient has been complaining of this burning sensation in the chest. Sometimes he can be pretty severe. For some reason response to prednisone although is not really her breathing. I did provide her with gabapentin that she can use at nighttime to help her with neuropathic pain. The patient also needs to follow-up with cardiology to make sure that she does not have active cardiac issue going on. She continues use oxygen with good effect. The patient also continues with the current resp iratory therapy. Overall she is doing better. However, she does have significant comorbidities with extensive emphysema. Will continue monitoring him closely. 09/25/2023 the patient is here for a pulmonary follow-up visit. The patient recently was at the [facility] where she was admitted with pneumonia. She was having the burning sensation in the chest. Seems to happen when she started to get more congested sickly. Therefore likely a sign of airway burden and mucus plugging. She was given vancomycin and also cefepime in the hospital. Shunt she was discharged on Levaquin which she did take for 3 days although she needs to be very careful with QT. the patient does take sotalol. Did helping her burning sensation in the chest did improve on that therapy. Now she is at home she is off the prednisone. We did talk about a small dose of prednisone although she has osteoporosis and therefore risk for having further bone injury and fractures. Therefore I will give her some prednisone but not to take it right now unless she gets sick she can do short burst low dose. In addition to that the patient has been back on the inhaled tobramycin. This will help decrease some of the organisms from her lungs. Will go ahead and start her on a small dose of doxycycline in order to treat for Staph related chinstrap related infections. The patient has had significant probably microbial infection. And also from the [place] standpoint the patient unfortunately has not been able to use the macrolide therapy because of the sotalol. Although she is seen by new multi care technician and is felt that maybe she can come off the sotalol so therefore if that is the case we can start her on azithromycin. I will reach out to her new multi care technician to try a figure out how we can go about the change. She continues use the oxygen with good therapy. 11/06/2023 the patient is here for a pulmonary follow-up visit. Overall she is feeling better. Her burning chest sensation has improved. The patient is still having to use her oxygen more regularly. She is tolerating the doxycycline daily. She has also taking the rifampin. In addition to that she has been taking the inhaled tobramycin 28 days on 20 days off. The days that she is not using the inhaled tobramycin she started getting little bit more secretion although still clear or light in color. We again talked about the azithromycin. Currently she is still on sotalol. Her multi care technician did mention the possibility of her coming off sotalol. But at this point since she is doing well from the doxycycline and we already treating all the organisms with current medication regimen best just to stay on when she is on right now specially with a very complicated medical issues. The patient did have an incident here in the office where she tripped and her oxygen concentrator fell landing on the cannula receptor and breaking. Therefore she will reach out to [employer] and will try to get that fixed. We did review her PFTs. There just a little bit over a year. I do believe that she should start participating in pulmonary rehabilitation specially now with the heated humidity will be hard for her to be outside. The patient is willing to start this at this time although she is concerned about her stamina. 12/30/2023 the patient is here for a pulmonary follow-up visit. The patient is starting to feel little bit better today. She has also been participating in pulmonary rehabilitation which is been helpful for her. She still has significant chest congestion. She does respond well to the inhaled BALBINA although it does irritate her lungs and constant chest tightness. When she is on the inhaled BALBINA she typically has less congestion. Currently she is on doxycycline treating her empirically for stenotrophomonas. The patient also had been treated for Aspergillus and also achromobacter previously. She is doing better from that standpoint. She does need a CT scan of the chest to address the previous findings. Her last CT scan was back in 10/04/2023. She does continue to use her oxygen good effect. She does have a portable oxygen concentrator the seems to be more portable for her. The patient returns 6 weeks. At that point will decide if she is going to continue the doxycycline. Also to note her mycobacterial cultures have been negative the last few times that they were checked. This is reassuring. Consider stopping the rifampin as well. Probably stop 1 medication at a time in view of her significant comorbidities. 02/12/2024 the patient is here for a pulmonary follow-up visit. Overall the patient has been a little bit more stable on the current medication regimen. She does respond well to the doxycycline. She was supposed to stop but she is concerned about stopping it based on the fact that she has been feeling well and does not want to go backwards. She has also been on inhaled tobramycin she is tolerating that. And she continues on the rifampin. I do believe that she should continue the doxycycline for now specially since her respiratory exam she still congested and now she is off the BALBINA. However, we did talk that when she is back on the BALBINA she can try to decrease it down to 3 times a week. In the meantime she continues with the neb treatments 3 times a day and also continues chest PT as she has the percussion vest and she also has the flutter valve. The patient also has been using her oxygen with good effect. She continues use it continuously. The patient follow-up in 3-4 months. If she has any worsening issues she will call for an earlier assessment. 05/19/2024 the patient is here for a pulmonary follow-up visit. The patient overall has been feeling better now. She was taken required a course of Vantin. After she did have worsening symptoms and she call the office and we just had her hold off for the weekend to see if she will recover by itself. She did feel better and did not need any additional antibiotics which is reassuring. The patient had recently started the inhaled tobramycin. She is tolerating it although it does cause some irritation to the throat and increased coughing and she also has a little more bronchospasms with. She knows to use her albuterol little bit more often to try to minimize on the adverse effects of the BALBINA. The patient does have issues with dysmotility. She does respond well to Reglan. I do think the Reglan will be a good option for her she can use as needed as long as she can monitor closely for any tremors where she would have to quickly stopped the medicine because it can result in irreversible tremors. She continues with other medications as prescribed in her respiratory therapy. She continues use the oxygen with good effect. She is [facility] and she is exercising. She is using her oxygen 3 L pulse with exercising sometimes she is not able to go as fast as she used to before. She can always consider bringing larger tank in running continuous although it is hard for her to carry. Therefore she will continue with what she is doing right now will follow-up in 2-3 months. If she has any issues prior to that she will call for an earlier assessment. 08/24/2024 the patient is here for pulmonary follow-up visit. Overall she has been doing well. The doxycycline 3 times a week up ineffective. She also continues with BALBINA 28 days on 20 days off in the rifampin as well. This therapies have been able to keep her secretions under control and respiratory status stable. She still also during the percussion vest and the Acapella valve for CPT. The patient did go to the beach over the winter and she had a great time she has has another trip planned for the summer. I did tell her to call [facility] to see about getting a concentrator delivered. And she also needs to take all her supplies with her. For now we are not going to make any changes with her medications but in the fall will talk about potentially deescalating some of her medications including rifampin. If she has any issues prior to that she will call for an earlier assessment. 11/24/2024 the patient is here for pulmonary follow-up visit. Overall the patient has been doing well. She continues a very aggressive respiratory regimen treating both the non tuberculosis mycobacterial infections, her stenotrophomonas history and Pseudomonas history as well. Seems like the medications are keeping her at [place]. Her mucus production is decreased. The patient does have nasal congestion at times in likely component of vaso motor rhinitis. Will go ahead and prescribe some nasal sprays for her. In the meantime she does complaint of the inhaled tobramycin causes her to have significant chest tightness and wheezing. She can go ahead and decrease it to once a day when she is doing him just to see if she gets any relief. If she starts developing worsening chest congestion though she will have to increase it we have to kind of work around the adverse effects of the medication. The patient will get an x-ray before the next visit she will continue to use her oxygen as prescribed as it has been very affecting beneficial. Will follow-up in 3-4 months. If she has any issues before that she will call for an earlier assessment. 02/23/2025 the patient is here for pulmonary follow-up visit. Overall she is doing okay last week or 2 she did have increase chest congestion and she did have increased shortness breath. She was able to expectorate a lot of phlegm and she started feeling better. She actually started feeling the burning sensation in the chest that she usually feels when she is getting infection. She is now back on her inhaled BALBINA twice a day she seems to be doing better with the secretions standpoint on the inhaled BALBINA. Although, it does cause her to have more chest tightness and wheezing. Therefore, the patient has been using the budesonide nebs which are good and she can also consider going on a small dose of prednisone although she has the monitor her blood sugars. She also continues on the rifampin which she seems to be tolerating. She recently did have a chest x-ray which we personally reviewed demonstrating no significant disease shows evidence of hyperinflation and chronic bronchiectasis. She does have pulmonary nodules last CT scan was back in 2023. Therefore, will have her get a CT scan prior to the next visit in 3-4 months. The patient will provide us with a sputum culture for both culture and AFB if her congestion returns. We also talked about considering a Ohtuvayre nebs. She is already on lot her nebulized therapy but this may be a good option to decrease inflammation of the airways. Will go ahead and request that and then figure out how to get it into her regimen reasonably. 04/15/2025 the patient is here for pulmonary follow-up visit. Overall the patient has been doing better now. She did complete 3 weeks of meropenem. 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 She had 1 visit with her primary care doctor where she was desaturating. Therefore they did request a chest x-ray and per the patient's report it will had an increased opacity. Al though x-rays for the patient is difficult to interpret because of her significant disease. Clinically she is doing better right now likely was mucus plugging related. The patient has a percussion vest and recently she had to call because she has lost weight and she had to get a smaller vest. She noticed that the vest work better now and she was able to clear her lungs significantly. Therefore she will monitor closely her respiratory capacity and hopefully she can continue with good mucus clearance. In the meantime though because of her multiple resistant infections and bronchiectasis and now with resistance to the gentamicin as she is currently inhaled tobramycin will go ahead and refer her to Infectious Disease. She will continue with the current respiratory therapy. She is agreeable to starting Ohtuvayre as another modality to provide any inflammation to the airways and further bronchodilation. She continues with the bronchodilator therapy also continues with the budesonide and also continues with the hypertonic saline. Will see how she does with the additional nebulizer treatments as it may be a lot. She does have a CT scan scheduled for May and will follow-up sometime after that in May. If any issues arise she can always call for further recommendations. 05/25/2025 the patient is here for pulmonary follow-up visit. She started developing worsening chest congestion the last several days. The mucus is greenish in color. Denies any hemoptysis. She did get a sputum deliver to lab [facility]. It appears to be Pseudomonas again resistant to the tobramycin. Unfortunately she has been on sotalol. She had just completed 3 weeks of cefepime. I did reach out to Cardiology. The willing to trial her off the sotalol for now and see what happens. When she is off the sotalol she can start Levaquin. I will send her 3 weeks' worth of it. She knows to monitor closely for any tendonitis and also taking probiotics. She continues use her oxygen as prescribed. She also started the Ohtuvayre and seems to be tolerating that okay except for increased cough. She will continue for now. She will continue with the oxygen therapy. Her CT scan does demonstrate significant bronchiectasis. Also has stable pulmonary nodules and extensive emphysema. Therefore, the patient will start the Levaquin 3 take for 3 weeks and then she will follow-up with Infectious Disease the end of the month. They can talk about further therapies with inhaled antibiotics if necessary either with aztreonam or colistin. 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 Pulmonary nodules COPD (chronic obstructive pulmonary disease) Surgical History Hx of colonoscopy History of bronchoscopy History of appendectomy Social History Household Members: None Household Members Other:: alone Housing: Condominium Are you a primary interior plant caretaker to a significant other at home: No Do you presently have visiting nurse or other home services: No Alcohol intake: never Patient Tobacco Use Status: Former Tobacco user Tobacco use type: Cigarette Years Smoked: 35 Second Hand Smoke Exposure: No Advance Directives Date on File: 01/31/22 service: No Current occupational status: retired Review of Systems Const Denies fever(s), Denies malaise, Denies night sweats, Reports poor appetite and Reports weight loss ENT Denies change in voice, Denies lip swelling, Denies mouth pain, Reports nasal congestion, Reports nasal discharge and Denies tongue swelling Card Denies chest pain and Reports dyspnea on exertion Resp Reports change in phlegm color, Reports chest congestion, Reports cough, Denies hemoptysis, Reports excessive phlegm production, Reports dyspnea on exertion and Reports wheezing GI Denies abdominal pain and Reports nausea Musc Denies no additional complaints Neuro Denies Neuro-related abnormal movements Psych Denies no additional complaints Sherwin/Lymph Denies easy bleeding and Denies lymphadenopathy Aller/Immun Denies lip swelling, Denies tongue swelling and Reports wheezing Physical Exam Vital Signs: Last Vital Signs Pulse 89 05/25/25 11:19 BP 150/64 H 05/25/25 11:19 Pulse Ox 94 05/25/25 11:19 Oxygen Delivery Method Nasal Cannula 05/25/25 11:19 Oxygen Flow Rate 2 05/25/25 11:19 BMI result Body Mass Index 19.7 Last Vital Signs Temp 98.1 F 11/14/22 12:00 Pulse 87 11/14/22 12:00 Resp 19 06/01/23 12:00 BP 126/61 11/14/22 12:00 Pulse Ox 95 11/14/22 12:00 O2 Del Method Nasal Cannula 11/14/22 12:00 O2 Flow Rate 2 11/14/22 08:00 Oxygen Flow Rate 4 11/11/22 14:50 BMI result Body Mass Index 23.2 Const General: alert HEENT Head: Yes normocephalic Neck Neck: Yes normal visual inspection, Yes full ROM and Yes no lymphadenopathy Chest Chest palpation & inspection: normal inspection of the chest Resp Effort & Inspection: normal respiratory effort and prolonged expiratory phase Auscultation: no crackles, rhonchi, no wheezes and diminished lung sounds Cardio Rate: regular rate Rhythm: regular rhythm Heart sounds: S1 normal heart sound present and S2 normal heart sound present GI Palpation (GI): Soft to palpation Auscultation: normal bowel sounds Skin General skin exam: no rashes or lesions noted Extrem General: Yes no clubbing, cyanosis or edema Results Reviewed Results Reviewed: Personally reviewed CT scan of the chest from May 2025 demonstrating extensive emphysema, extensive bronchiectasis about same. Stable pulmonary nodules. New right middle lobe airspace disease consistent with pneumonia with some involvement also of the right lower lobe. Assessment & Plan Assessment & Plan (1) Bronchiectasis: Code(s): J47.9 - Bronchiectasis, uncomplicated Category: Medical Qualifiers: Bronchiectasis type: with acute lower respiratory infection Qualified Code(s): J47.0 - Bronchiectasis with acute lower respiratory infection (2) Pulmonary nodules: Comment: Code(s): R91.8 - Other nonspecific abnormal finding of lung field Category: Medical (3) COPD (chronic obstructive pulmonary disease): Code(s): J44.9 - Chronic obstructive pulmonary disease, unspecified Category: Medical Qualifiers: COPD type: chronic bronchitis Chronic bronchitis type: mucopurulent Qualified Code(s): J41.1 - Mucopurulent chronic bronchitis (4) Nontuberculous mycobacterial disease of lung: Code(s): A31.0 - Pulmonary mycobacterial infection Category: Medical (5) Pseudomonas respiratory infection: Code(s): J98.8 - Other specified respiratory disorders; B96.5 - Pseudomonas (aeruginosa) (mallei) (pseudomallei) as the cause of diseases classified elsewhere Category: Medical (6) Aspergilloma: Comment: resolved on CT chest 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 - Aspergillosis, unspecified Category: Medical (7) 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 inhaled abx for recurrent pseudomonas continue Advair/Spiriva Gabapentin 200mg qHS ROBERT as needed continue budesonide start Ohtuvayre Sputum cx/AFB if worsens oxygen with activity and sleep reglan BID as needed for nausea continue CPT continue Pulmonary exercise ID referral due to resistant pseudomonas to gentamycin. 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
[2025-05-25 11:19] VITALS: BP 150/64; PULSE 89; O2SAT 94; BMI 19.7
--- OUTSIDE RECORDS SUMMARY | 2025-05-25 18:10 | XMS_ITS | Clinical Summary ---
Author Organization [facility] Prior to 11/13/24 Address [address] [place] [address] Care Team Providers Care Tower Loader Operator Name Role Phone Daniel Yoon MD Primary Care Provider [phone] Allergies No known active allergies Medications Medication [...] age to complete this topic Care Teams Tower Loader Operator Relationship Specialty Start Date End Date Daniel Yoon MD PCP - General Internal Medicine 04/03/22
--- OUTSIDE RECORDS SUMMARY | 2025-05-25 18:10 | XMS_ITS | Clinical Summary ---
Author Organization Patient Business Ser vice [facility] Address [address] [place] [address] Care Team Providers Care Press Writer Name Role Phone Daniel Yoon MD Primary Care Provider [phone] Allergies No known active allergies Medications glucosamine/zabrina [...] MOUTH EVERY 12 HOURS 180 tablet 3 025 Active ezetimibe (ZETIA) 10 mg tablet TAKE 1 TABLET BY MOUTH DAILY 90 tablet 3 025 Active omeprazole (PriLOSEC) [address] capsule Take 1 capsule (20 mg total) by mouth 2 (two) times a day. 180 capsule 3 025 Active Repatha SureClick 140 mg/mL pen injector injection INJECT 1 PEN SUBCUTANEOUSLY EVERY 2 WEEKS 6 mL 3 025 Active Eliquis 5 mg tablet TAKE 1 TABLET BY MOUTH TWICE DAILY 180 tablet 3 025 Active alendronate (FOSAMAX) 70 mg tablet TAKE 1 TABLET BY MOUTH WEEKLY IN THE MORNING WITH 8 OZ OF PLAIN WATER 30 MINUTES BEFORE FIRST FOOD, DRINK OR MEDS. STAY UPRIGHT FOR 30 MINS 12 tablet 1 Active LORazepam (ATIVAN) 0.5 mg tablet Take 1 tablet (0.5 mg total) by mouth at bedtime as needed for anxiety. 28 tablet Active zolpidem (AMBIEN) 5 mg tablet Take 1 tablet (5 mg total) by mouth at bedtime as needed for sleep. for insomnia Max Daily Amount: 5 mg 28 tablet Active alendronate (FOSAMAX) 70 mg tablet Take 1 tablet (70 mg total) by mouth every 7 (seven) days. Take in the morning with a full glass of water, on an empty stomach, and do not take anything else by mouth or lie down for the next 30 min. 12 tablet 2 025 2024 Discontinued LORazepam (ATIVAN) 0.5 mg tablet Take 1 tablet (0.5 mg total) by mouth at bedtime as needed for anxiety. 28 tablet 025 2024 Discontinued(R eorder) zolpidem (AMBIEN) 5 mg tablet Take 1 tablet (5 mg total) by mouth at bedtime as needed for sleep. for insomnia Max Daily Amount: 5 mg 28 tablet 025 2024 Discontinued(R eorder) Active Problems Problem Noted Date Diagnosed Date Murmur, cardiac 11/30/2024 Assessment & Plan (11/30/2024 3:19 PM EDT): The patient has cardiac murmur on exam. Sounds mild. Sounds like a mitral regurgitation. I am going to update an echocardiogram. COPD (chronic obstructive pulmonary disease) 01/2024 Overview (04/23/2024): Follows with [facility] Pulm. Assessment & Plan (09/24/2024 11:51 AM [...] in agreement with this plan as well. Assessment & Plan (05/23/2025 12:08 PM EST): Patient is utilizing Eliquis secondary to paroxysmal atrial flutter, and Repatha with ezetimibe. She is not endorsing any cardiac complaints/anginal complaints at the appointment today. She does report that when she has an active lung infection she can feel a low/dull burning feeling in her chest. This typically clears up when the infection is treated. She is not endorsing any complaints today. 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 Pending results. I will follow- up on these results and get back to the patient. It is asymptomatic. Assessment & Plan (05/23/2025 12:05 PM EST): Most recent carotid ultrasound revealed less than 50% stenosis on both left and right ICA. Assessment & Plan (11/30/2024 3:17 PM EDT): Patient had updated carotid ultrasound. We were able to go over the results. Less than 50% stenosis in both left and right ICA. Gross hematuria 09/15/2017 Atrial flutter 06/11/2017 Overview [...] Rodarte's note from 2018 (not scanned into epic-in [facility]) - She even had a 30-day R [...] because of QT prolongation Assessment & Plan (05/23/2025 12:05 PM EST): She is in sinus rhythm at the appointment. She is utilizing sotalol 80 mg p.o. twice daily in addition to the Eliquis 5 mg p.o. twice daily. As mentioned in the HPI she is an extensive history of chronic lung infections. Most recently in February 2025. She reports that her acute dialysis registered nurse would like to put her on Levaquin, however has not been able to secondary to the sotalol and the QT prolonging agents. We are going to look into some other options to the sotalol and will come up with a definitive plan for the future. Assessment & Plan (11/30/2024 3:17 PM EDT): [...] Glaucoma 03/15/2015 Hyperlipidemia 03/15/2015 Assessment & Plan (05/23/2025 12:06 PM EST): Well-controlled on the Repatha and ezetimibe, please continue. Please adhere to a healthy cardiac diet Assessment & Plan (09/24/2024 11:51 AM EDT): [...] secondary prevention. Hypertension 03/15/2015 Assessment & Plan (05/23/2025 12:08 PM EST): Continue on the sotalol. Assessment & Plan (11/30/2024 3:18 PM EDT): [...] Encounters Date Type Department Care Team Description 05/23/2025 11:10 AM EST Office Visit [facility] [address] [place] [address] Luis Alberto Marte NP Paroxysmal A-fib (CMS/HCC V24, CMS/HCC V28) (Primary Dx); Atrial flutter, unspecified type (CMS/HCC V24, CMS/HCC V28); Atypical chest pain; Carotid artery disease, unspecified laterality, unspecified type ([facility] V24); Primary hypertension; Pure hypertriglyceridemia 04/19/2025 3:20 PM EST Consult Gastroenterology - [address] [place] [phone] Fide Laguerre MD Colon cancer screening (Primary Dx) 04/11/2025 10:20 AM EDT - 04/11/2025 11:59 PM EDT Hospital Encounter Bone Density - [address] [phone] Osteopenia, unspecified location Discharge Disposition: Home or Self Care 04/07/2025 Telephone Adult Medicine [address] [phone] Daniel Yoon MD 04/06/2025 Telephone [facility] - [facility] [address] [facility] [address] [place] [phone] Mary Anne Vargas MD 04/04/2025 11:25 AM EDT - 04/04/2025 11:59 PM EDT Hospital Encounter XRAY [address] [phone] Pseudomonas aeruginosa infection; CHEMO (mycobacterium avium-intracellulare) infection ([facility] [place] [place] V24, [facility] [place] [place] V28); Chest congestion Discharge Disposition: Home or Self Care 04/04/2025 11:15 AM EDT - 04/04/2025 11:59 PM EDT Hospital Encounter XRAY [address] [phone] Paresthesia of both lower extremities Discharge Disposition: Home or Self Care 04/04/2025 10:30 AM EDT Office Visit Adult Medicine [address] [phone] Daniel Yoon MD Pseudomonas aeruginosa infection (Primary Dx); CHEMO (mycobacterium avium-intracellulare) infection ([facility] V24, [facility] V28); Chronic obstructive pulmonary disease, unspecified COPD type ([facility] V24, [facility] [place] [place] V28); Chest congestion; Paresthesia of both lower extremities; Atrial flutter, unspecified type ([facility] [place] [place] V24, [facility] [place] [place] V28) 03/10/2025 Telephone Adult Medicine [address] [phone] Daniel Yoon MD from Last 3 Months [...] Date Site/Laterality Comments APPENDECTOMY PROCEDURE:APPENDECTOMY APPENDECTOMY PROCEDURE: SC APPENDECTOMY TONSILLECTOMY PROCEDURE: HISTORICAL TONSILLECTOMY COLONOSCOPY W/ POLYPECTOMY 02/22/2020 TA x 3 ESOPHAGOGASTRODUODENOSCOPY 02/22/2020 nl egd, nl esophagus biopsies ABLATION OF DYSRHYTHMIC FOCUS ?2017 Medical History Medical History Date Comments Asthma DX:Asthma COPD (chronic obstructive pu lmonary disease) ([facility] [place] [place] V24, [facility] [place] [place] V28) DX:COPD (chronic o bstructive pulmonary disease) ([facility]) High blood pressure DX:High bloo d pressure Osteoporosis DX:Osteoporosis GERD (gastroesophageal reflux disease) DX:GERD (gastroesophageal reflux disease) COPD (chronic obstructive pu lmonary disease) ([facility] [place] [place] V24, [facility] [place] [place] V28) DX:COPD (chronic o bstructive pulmonary disease) ([facility]); COMMENT: dr mehta History of tobacco abuse DX:Hist ory of tobacco abuse; COMMENT: 35 pk yrs Glaucoma 03/15/2015 DX:Glaucoma Hyperlipidemia 03/15/2015 DX:Hyperlipidemi a GERD (gastroesophageal reflux disease) 03/15/2015 DX:GERD (gastroesophageal reflux disease) Hypertension 03/15/2015 DX:Hypertension Diverticulitis 03/15/2015 DX:Diverticuliti s Onychomycosis 03/15/2015 DX:Onychomycosis Colon polyp 03/15/2015 DX:Colon polyp Anxiety 07/30/2016 DX:Anxiety Atrial flutter ([facility] V24, [facility] V28) 06/11/2017 DX:Atrial flutter (HCC); COM MENT: [...] arotid stenosis, 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 For example, director child abuse therapy or elderly care for an older adult? [...] Pulse 90 05/23/2025 11:04 AM EST Temperature 36.5 C (97.7 F) 04/04/2025 10:22 AM EDT Respiratory Rate 18 04/04/2025 10:22 AM EDT Oxygen Saturation 93% 05/23/2025 11:04 AM EST Inhaled Oxygen Concentration - - Weight 55.3 kg (122 lb) 05/23/2025 11:04 AM EST Height 165.1 cm (5' 5 ) 05/23/2025 11:04 AM EST Body Mass Index 20.3 05/23/2025 11:04 AM EST Plan of Treatment Upcoming Encounters Date Type Department Care Team (Late st Contact Info) Description 10/21/2025 11:30 AM EDT Office Visit Adult Medicine [address] [phone] Daniel Yoon MD [address] [place] [phone] Health Maintenance Due Date Last Done Comments Drug Screen 1940 Non-Opioid Controlled Substance Agreement 1940 IPV Vaccines (2 of 3 - Adult [...] have resolution of her lung infection General Dorothea La, RN Note: 05/20/25 pt states that she had a sputum culture 1 week ago and it had unresolved infection. She did nt hear form her acute dialysis registered nurse yet. She is feeling fine and is planning to discuss next week at her appt with Dr. Zapata, [facility] pul. Procedures Procedure Name Priority Date/Time Associated Diagnosis Comments ECG 12-LEAD Routine 05/23/2025 11:33 AM EST Paroxysmal A-fib ([facility] V24, [facility] V28) BD BONE DENSITY DXA AXIAL SKELETON Routine 04/11/2025 10:45 AM EDT Osteopenia, unspecified location XR CHEST 2 VIEWS Routine 04/04/2025 11:4 3 AM EDT Pseudomonas aeruginosa infection CHEMO (mycobacterium avium-intracellulare) infection (CMS/[facility] V24, [facility] V28) Chest congestion XR LUMBAR SPINE 4+ VIEWS Routine 04/04/2025 11:43 AM EDT Paresthesia of both lower extremities BASIC METABOLIC PANEL Routine 01/04/2025 10:22 AM EDT Primary hypertension LIPID PANEL WITH REFLEX TO DIRECT LDL Routine 04/22/2024 8:08 AM EST Routine medical exam FALLS RISK ASSESSMENT Routine 05/16/2023 from Last 3 Months or Most Recently Relevant to Health Maintenance Results * ECG 12 lead (05/23/2025 11:33 AM EST) 05/23/2025 11:1 4 AM EST Luis Alberto Marte NP ECG ORDERABLES Final Result GEMUSE * BD Bone Density DXA Axial Skeleton [...] Signed Date: 04/12/2025 11:07 ET Workstation ID: [id number] Transcribed By: Self Edit Transcribed Date: 04/12/2025 10:51 ET Narrative 04/12/2025 11:07 AM EDT Clinical history: f/u osteoporosis Scans of the lumbar spine and hips were performed on a [employer] fan beam bone densitometer. Bone mineral density [...] spine and hips were performed on a [employer] beam bone densitometer. Bone mineral density measurements [...] Signed Date: 04/12/2025 11:07 ET Workstation ID: [id number] Transcribed By: Self Edit Transcribed Date: 04/12/2025 [...] Signed Date: 04/06/2025 09:02 ET Workstation ID: [id number] Transcribed By: Self Edit Transcribed Date: 04/06/2025 [...] Signed Date: 04/06/2025 09:02 ET Workstation ID: [id number] Transcribed By: Self Edit Transcribed Date: 04/06/2025 [...] Signed Date: 04/04/2025 19:50 ET Workstation ID: [id number] Transcribed By: Self Edit Transcribed Date: 04/04/2025 [...] Signed Date: 04/04/2025 19:50 ET Workstation ID: [id number] Transcribed By: Self Edit Transcribed Date: 04/04/2025 19:42 ET us Daniel Yoon MD IMG XR PROCEDURES Final Result * Basic metabolic panel (01/04/2025 10:22 AM EDT) Sodium 135 133 - 145 mmol/L LAB CHEMISTRY METHOD 01/04/2025 1:[address] [facility] Potassium 4.4 3.5 - 5.5 mmol/L LAB CHEMISTRY METHOD 01/04/2025 1:[address] [facility] Chloride 101 96 - 110 mmol/L LAB CHEMISTRY METHOD 01/04/2025 1:[address] [facility] CO2 27 21 - 32 [...] LAB CHEMISTRY METHOD 01/04/2025 1:57 PM EDT [facility] Calcium 10.4 8.5 - 10.5 mg/dL LAB CHEMISTRY METHOD 01/04/2025 1:57 PM EDT [facility] Blood Venous blood specimen / Unknown Venipuncture / Unknown 01/04/2025 10:22 AM EDT 01/04/2025 10:22 AM EDT us Luis Alberto Marte ALUMINUM POLISHER LAB BLOOD ORDERABLES Final Resul t [facility] [address] [place] [address], * Lipid panel with reflex to direct LDL (04/22/2024 8:08 AM EST) Cholesterol 144 0 - 200 mg/dL LAB CHEMISTRY METHOD 04/22/2024 10:14 AM EST [facility] Triglycerides 101 0 - 150 mg/dL LAB CHEMISTRY METHOD 04/22/2024 10:14 AM EST [facility] HDL 68 >=40 mg/dL LAB CHEMISTRY METHOD 04/22/2024 10:14 AM EST [facility] LDL Calculated 56 0 - 100 mg/dL LAB CHEMISTRY METHOD 04/22/2024 10:14 AM [facility] VLDL Cholesterol Carlos 20.2 mg/dL LAB CHEMISTRY METHOD 04/22/2024 10:14 AM [facility] Non HDL Chol. (LDL+VLDL) 76 <145 mg/dL LAB CHEMISTRY METHOD 04/22/2024 10:14 AM [facility] Chol/HDL Ratio 2.1 0.0 - 4.4 LAB CHEMISTRY METHOD 04/22/2024 10:14 AM [facility] Blood Venous blood specimen / Unknown Venipuncture / Unknown 04/22/2024 8:08 AM EST 04/22/2024 8:08 AM EST Angélica WHITFIEDL LAB BLOOD ORDERABLES Final Re sult [facility] [address] [place] [address], * Falls Risk Assessment (05/16/2023) [facility] Signature Falls Risk Assessment Abstracted Historical Provider MD HEALTH MAINTENANCE Final Result from Last 3 Months or Most Recently Relevant to Health Maintenance Insurance MEDICARE [facility] Advance Directives Documents on File Type Date Recorded 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 Care Teams Press Writer Relationship Specialty Start Date End Date Daniel Yoon MD [address] [place] [phone] PCP - General Internal Medicine 04/30/24
--- OUTSIDE RECORDS SUMMARY | 2025-05-25 18:10 | XMS_ITS ---
Author Organization Patient Business Ser [facility] Address [address] [place] [address] Care Team Providers Care Bi Consultant Name Role Phone Daniel Yoon MD Primary Care Provider [phone] Chronic Care Management Status:Ongoing (Active) Start date:03/11/2025 Enrollment date:03/18/2025 Enrollment reason:Referred by Care Team Case Team Name Relationship Phone Dorothea Ramirez RN(Responsible Staff) Care [facility] Services Coordination
== END 2025-05-25 11:56 | disposition home or self-care (01) ==
LOC: HO.HPS 11:18
PROVIDERS: PCP Internal Medicine; Visit Provider Hospitalist
DX: J47.0 Bronchiectasis with acute lower respiratory infection (principal); R91.8 Other nonspecific abnormal finding of lung field; J41.1 Mucopurulent chronic bronchitis; A31.0 Pulmonary mycobacterial infection; J98.8 Other specified respiratory disorders; B96.5 Pseudomonas (aeruginosa) (mallei) (pseudomallei) as the cause of diseases classified elsewhere; B44.9 Aspergillosis, unspecified; A49.8 Other bacterial infections of unspecified site; Z16.24 Resistance to multiple antibiotics; J15.1 Pneumonia due to Pseudomonas
CPT/HCPCS: 99215; G2212

== ENCOUNTER → 2025-05-25 11:17 | Outpatient (BNVA) | payer MEDICARE, SELFPAY | PROVIDERS: PCP Internal Medicine; Visit Provider Hospitalist | DX: J47.0 Bronchiectasis with acute lower respiratory infection (principal); R91.8 Other nonspecific abnormal finding of lung field; J98.8 Other specified respiratory disorders; B96.5 Pseudomonas (aeruginosa) (mallei) (pseudomallei) as the cause of diseases classified elsewhere; B44.9 Aspergillosis, unspecified; J15.1 Pneumonia due to Pseudomonas; Z16.24 Resistance to multiple antibiotics | CPT/HCPCS: 99212 ==